=== PATIENT | female | born 1965 | race African-American/Black ===

== ENCOUNTER → 2020-01-21 12:10 | Outpatient (BNVA) | payer OTHER, SELFPAY | PROVIDERS: PCP Nurse Practitioner Family; Visit Provider Internal Medicine | DX: B20 Human immunodeficiency virus [HIV] disease (principal); Z79.899 Other long term (current) drug therapy | CPT/HCPCS: 99212 ==

== ENCOUNTER 2020-02-19 11:42 | Outpatient (REF) | payer OTHER, SELFPAY ==
[2020-02-19 12:42] LABS: Anion Gap 12 (12-20); Blood Urea Nitrogen 17 mg/dL (9-16); Calcium 8.5 mg/dL (8.4-10.2); Carbon Dioxide 24 mmol/L (22-29); Chloride 108 mmol/L (96-108); Cholesterol 184 mg/dL; Estimated Glomerular Filt Rate 44; Glucose Fasting 94 mg/dL (60-99); HDL Cholesterol 41 mg/dL; LDL Cholesterol Calculated 122 mg/dl; Potassium 4.4 mmol/l (3.3-5.1); Sodium 140 mmol/L (135-145); Triglycerides 108 mg/dL
[2020-02-19 13:02] LABS: TSH reflex Free T4 0.66 mIU/mL (0.32-4.0); Vitamin D 25-OH Total 19.8 ng/mL (>30)
[2020-02-26 08:47] LABS: FT4 by Equilib. Dialysis 1.1 ng/dL (0.9-2.2)
== END 2020-02-19 11:43 | disposition home or self-care (01) ==
LOC: HO.LAB 11:42
PROVIDERS: PCP Nurse Practitioner Family; Visit Provider Internal Medicine Endocrinology, Diabetes & Metabolism
DX: Z00.00 Encounter for general adult medical examination without abnormal findings (principal); Z78.0 Asymptomatic menopausal state; E89.0 Postprocedural hypothyroidism
CPT/HCPCS: 80048; 80061; 82306; 84439; 84443

== ENCOUNTER 2020-02-20 10:29 | Outpatient (REF) | payer OTHER, SELFPAY | END 2020-02-20 10:30 | disposition home or self-care (01) | LOC: HO.LAB 10:29 | PROVIDERS: Visit Provider Obstetrics & Gynecology | DX: R87.612 Low grade squamous intraepithelial lesion on cytologic smear of cervix (LGSIL) (principal) | CPT/HCPCS: 57454; 88305 ==

== ENCOUNTER → 2020-02-21 08:33 | Outpatient (REF) | payer OTHER, SELFPAY ==
--- NOTE | 2020-02-21 08:30 | CA_ITS ---
Transthoracic Echocardiogram Patient (Last, First, Middle): Miriam Chacon J Gender: Female Date of : 1965 Age: 54 Procedure Date: 02/21/2020 Procedure Type: Transthoracic Echocardiogram Location: OP Height: 154.94 cm Weight: 99.79 kg BSA: 1.97 m2 Heart Rate: bpm BP: 136 / 78 mmHg Refining Supervisor: DAVY Referring MD: Kenroy Freeman [facility] Lotus Notes Developer: Aubrey Ayers MD Symptoms: R01.1 CARDIAC MURMUR Study Quality: Good ECG Rhythm: Sinus Conclusions: - 1. Normal LV systolic and diastolic function 2. Mild mitral regurgitation in the early systolic period 3. Normal RV systolic pressure 4. No pericardial effusion Findings Left Ventricle Normal left ventricular size, thickness, and systolic function. The visually estimated ejection fraction is between 65-70%. There is no evidence of regional wall motion abnormalities. Diastolic function is normal for age. Right Ventricle Normal right ventricular cavity size and systolic function. Atria Both atria are normal in size. There is no evidence of interatrial shunt. Aortic Valve Normal aortic valve structure and function. There is no aortic valve stenosis. There is no aortic valve regurgitation. Mitral Valve Normal mitral valve structure and function. There is mild mitral valve regurgitation. There is no mitral valve stenosis. Pulmonic Valve The pulmonic valve is likely normal. Tricuspid Valve Normal tricuspid valve structure. There is mild tricuspid valve regurgitation. The right ventricular systolic pressure is normal. Normal right atrial pressure. There is no evidence of pulmonary hypertension. Great Vessels All visible segments of the aorta are normal in size. The pulmonary artery was not well visualized. Venous The inferior vena cava is normal in size and collapses greater than 50% with inspiration. Pericardium/Pleural There is no evidence of pericardial effusion. Prior Study Comparison Changes noted compared to prior study dated: 07/09/2018. mild early systolic mitral regurgitation noted Measurements 2D Linear Measurements IVSd: 1.06 0.6-0.9/0.6-1.0 cm LVIDd: 4.96 3.9-5.3/4.2-5.9 cm LVIDd Index: 2.52 2.4-3.2/2.2-3.1 cm/m2 LVIDs: 2.77 2.0-3.6 cm LVPWd: 1.19 0.7-1.1 cm Ao Root: 2.70 2.1-3.5 cm LA Diam: 4.00 2.7-3.8/3.0-4.0 cm LAIDs Index: 2.03 1.5-2.3 cm/m2 LV Mass: 262.89 67-162/88-224 g LV Mass Index: 133.45 43-95/49-115 g/m2 LVOT Diam: 2.00 3.0+(-)1.3 cm 2D Systolic Function EF 4C: 74.00 >55% EF 2C: 57.90 >55% EF BiP: 66.60 >55% Mitral Valve MV Pk E: 0.72 MV PK A: 0.55 MV Decel Time: 201.00 E/A: 1.30 E'Lateral: 12.70 E'Medial: 7.64 E/E' Med: 9.50 E/E' Lat: 5.70 PHT: 59.00 MVA PHT: 3.73 Decel Hamblen: 3.60 Aortic Valve AoV Pk Manjinder: 1.24 AoV Pk Grad: 6.00 LVOT LVOT Pk Manjinder: 0.91 LVOT Mn Manjinder: 0.65 LVOT VTI: 0.21 LVOT Pk Grad: 3.00 LVOT Mn Grad: 2.00 LVOT Diam: 2.00 LVOT Area: 3.14 Diastolic Function MV Pk E: 0.72 MV Pk A: 0.55 E/A: 1.30 E'Medial: 7.64 E/E' Med: 9.50 E' Laterial: 12.70 E/E' Lat: 5.70 Tricuspid Valve TR Pk Manjinder: 2.92 TR Pk Grad: 34.00 RA Press: 3.00 RVSP: 37.00 Great Vessels Aorta Ao Root-2D: 2.70 2.0-3.7 cm Ao Asc: 3.80 2.1-3.4 cm Ao Arch: 3.00 Updated in Other Vendor System with Status of Final Aubrey Ayers MD electronically signed on 02/21/2020 1:39:17 PM with status of Final
== END ==
LOC: HO.CARD 08:33
PROVIDERS: PCP Nurse Practitioner Family; Visit Provider Nurse Practitioner Family
DX: R01.1 Cardiac murmur, unspecified (principal)
CPT/HCPCS: 93306

== ENCOUNTER → 2020-02-24 10:24 | Outpatient (BNVA) | payer OTHER, SELFPAY | PROVIDERS: PCP Nurse Practitioner Family; Referring Provider Nurse Practitioner Family; Visit Provider Internal Medicine Endocrinology, Diabetes & Metabolism | DX: Z13.89 Encounter for screening for other disorder (principal) | CPT/HCPCS: 99212 ==

== ENCOUNTER → 2020-03-11 10:27 | Outpatient (BNVA) | payer OTHER, SELFPAY | PROVIDERS: Visit Provider Obstetrics & Gynecology | DX: R87.612 Low grade squamous intraepithelial lesion on cytologic smear of cervix (LGSIL) (principal) | CPT/HCPCS: Q3014 ==

== ENCOUNTER 2020-04-06 09:58 | Outpatient (REF) | payer OTHER, SELFPAY ==
[2020-04-06 11:08] LABS: Cholesterol 152 mg/dL; HDL Cholesterol 41 mg/dL; LDL Cholesterol Calculated 93 mg/dl; Triglycerides 92 mg/dL
== END 2020-04-06 09:59 | disposition home or self-care (01) ==
LOC: HO.LAB 09:58
PROVIDERS: PCP Nurse Practitioner Family; Visit Provider Internal Medicine
DX: I25.10 Atherosclerotic heart disease of native coronary artery without angina pectoris (principal)
CPT/HCPCS: 80061

== ENCOUNTER → 2020-04-08 10:41 | Outpatient (BNVA) | payer OTHER, SELFPAY | PROVIDERS: Visit Provider Internal Medicine | DX: I25.10 Atherosclerotic heart disease of native coronary artery without angina pectoris (principal); I10 Essential (primary) hypertension; E78.5 Hyperlipidemia, unspecified; E66.01 Morbid (severe) obesity due to excess calories | CPT/HCPCS: 99212 ==

== ENCOUNTER 2020-06-19 10:39 | Outpatient (REF) | payer OTHER, SELFPAY ==
[2020-06-19 11:40] LABS: MANUAL DIFF FLAG NO
[2020-06-19 11:53] LABS: Basophils Percent Auto 0.2 % (0-2); Eosinophils Percent Auto 0.2 % (0-4); Hematocrit 43.2 % (37-47); Hemoglobin 13.7 g/dl (12.0-16.0); Imm Gran Abs Auto 0.03 X10*3/uL (0.00-0.03); Imm Gran Pct Auto 0.7 % (0.0-0.4); Lymphocytes Absolute Auto 2.1 X10*3/uL (1.2-4.9); Lymphocytes Percent Auto 50.6 % (20-40); Mean Corpuscular HGB Conc 31.7 g/dl (31.0-35.0); Mean Corpuscular Hemoglobin 27.3 pg (27.0-33.0); Mean Corpuscular Volume 86.2 fL (80-98); Monocytes Absolute Auto 0.3 X10*3/uL (0.1-1.2); Monocytes Percent Auto 6.4 % (2-11); Neutrophils Absolute Auto 1.7 X10*3/uL (2.0-8.3); Neutrophils Percent Auto 41.9 % (45-73); Platelet Count 219 X10*3/uL (160-400); Red Blood Count 5.01 X10*6/uL (4.20-5.50); Red Cell Distribution Width 13.9 % (11.0-16.0); White Blood Count 4.1 X10*3/uL (4.8-10.8)
[2020-06-19 12:23] LABS: Alanine Aminotransferase 20 U/L (0-31); Albumin Level 4.1 g/dL (3.5-5.0); Alkaline Phosphatase 171 U/L (39-117); Anion Gap 16 (12-20); Aspartate Amino Transferase 21 U/L (5-31); Bilirubin Direct 0.2 mg/dL (0.0-0.5); Bilirubin Total 0.4 mg/dL (0.0-1.0); Blood Urea Nitrogen 17 mg/dL (9-16); Calcium 8.6 mg/dL (8.4-10.2); Carbon Dioxide 24 mmol/L (22-29); Chloride 106 mmol/L (96-108); Estimated Glomerular Filt Rate 44; Glucose Random 91 mg/dL (60-115); Potassium 4.9 mmol/L (3.3-5.1); Sodium 141 mmol/L (135-145); Total Protein 7.7 g/dL (6.5-8.0)
[2020-06-22 04:27] LABS: ~HepC Num1 0.07 S/CO (0.00-0.79); ~Hepatitis C Antibody Nonreactive (Nonreactive)
[2020-06-22 16:12] LABS: Absolute CD3 Count 1772 cells/uL (840-3060); Absolute CD4 Count 1015 cells/uL (490-1740); Absolute CD8 Count 780 cells/uL (180-1170); Absolute Lymphocytes 2245 cells/uL (850-3900); Percent CD3 Cells 79 % (57-85); Percent CD4 Cells 45 % (30-61); Percent CD8 Cells 35 % (12-42)
== END 2020-06-19 10:40 | disposition home or self-care (01) ==
LOC: HO.LAB 10:39
PROVIDERS: PCP Nurse Practitioner Family; Visit Provider Internal Medicine
DX: Z21 Asymptomatic human immunodeficiency virus [HIV] infection status (principal)
CPT/HCPCS: 36415; 80048; 80076; 85025; 86359; 86360; 86701; 86702; 86803; 87389

== ENCOUNTER 2020-06-23 10:38 | Outpatient (REF) | payer OTHER, SELFPAY ==
[2020-06-24 12:11] LABS: HIV RNA PCR Qn Copies <20 NOT DETECTED copies/mL (NOT DETECTED); HIV RNA PCR Qn Log Copies <1.30 NOT DETECTED (NOT DETECTED)
== END 2020-06-23 10:39 | disposition home or self-care (01) ==
LOC: HO.LAB 10:38
PROVIDERS: PCP Nurse Practitioner Family; Visit Provider Internal Medicine
DX: B20 Human immunodeficiency virus [HIV] disease (principal); Z79.899 Other long term (current) drug therapy
CPT/HCPCS: 36415; 87536; 99212

== ENCOUNTER 2020-07-14 12:11 | Outpatient (REF) | payer OTHER, SELFPAY | END 2020-07-14 12:12 | disposition home or self-care (01) | LOC: HO.LAB 12:11 | PROVIDERS: PCP Nurse Practitioner Family; Visit Provider Internal Medicine Endocrinology, Diabetes & Metabolism | DX: Z13.89 Encounter for screening for other disorder (principal) ==

== ENCOUNTER 2020-07-16 08:17 | Outpatient (REF) | payer OTHER, SELFPAY ==
[2020-07-16 10:01] LABS: Anion Gap 13 (12-20); Blood Urea Nitrogen 25 mg/dL (9-16); Calcium 8.7 mg/dL (8.4-10.2); Carbon Dioxide 26 mmol/L (22-29); Chloride 108 mmol/L (96-108); Cholesterol 228 mg/dL; Estimated Glomerular Filt Rate 39; Free T4 (Free Thyroxine) 1.03 ng/dL (0.71-1.85); Glucose Fasting 98 mg/dL (60-99); HDL Cholesterol 45 mg/dL; LDL Cholesterol Calculated 146 mg/dl; Sodium 143 mmol/L (135-145); Thyroid Stimulating Hormone 0.64 uIU/mL (0.32-4.0); Triglycerides 186 mg/dL
[2020-07-17 07:02] LABS: Follicle Stimulating Hormone 90.6 mIU/mL; Lutenizing Hormone 37.5 mIU/mL; Prolactin 8.3 ng/mL
[2020-07-17 16:46] LABS: Adrenocorticotropic Hormone 85 pg/mL (6-50)
[2020-07-20 14:46] LABS: IGF-1 (Somatomedin C) 99 ng/mL (50-317); IGF-1 Z Score (Female) -0.7 SD (-2.0 - +2.0)
[2020-07-20 18:02] LABS: Estradiol Ultra Sensitive 17 pg/mL
== END 2020-07-16 08:18 | disposition home or self-care (01) ==
LOC: HO.LAB 08:17
PROVIDERS: PCP Nurse Practitioner Family; Visit Provider Internal Medicine Endocrinology, Diabetes & Metabolism
DX: D35.2 Benign neoplasm of pituitary gland (principal); E78.5 Hyperlipidemia, unspecified; E05.00 Thyrotoxicosis with diffuse goiter without thyrotoxic crisis or storm; E55.9 Vitamin D deficiency, unspecified
CPT/HCPCS: 36415; 80048; 80061; 82024; 82533; 82670; 83001; 83002; 84146; 84305; 84439; 84443

== ENCOUNTER → 2020-07-22 11:09 | Outpatient (BNVA) | payer OTHER, SELFPAY | PROVIDERS: PCP Nurse Practitioner Family; Referring Provider Nurse Practitioner Family; Visit Provider Internal Medicine Endocrinology, Diabetes & Metabolism | DX: E89.0 Postprocedural hypothyroidism (principal); E05.00 Thyrotoxicosis with diffuse goiter without thyrotoxic crisis or storm; E55.9 Vitamin D deficiency, unspecified; D35.2 Benign neoplasm of pituitary gland | CPT/HCPCS: 99212 ==

== ENCOUNTER 2020-08-12 11:18 | Outpatient (REF) | payer OTHER, SELFPAY ==
--- NOTE | ~2020-08-12 | MR_ITS ---
EXAMINATION: MR BRAIN WITHOUT AND WITH CONTRAST CLINICAL INFORMATION: Benign neoplasm of the pituitary gland. COMPARISON: Brain MRI from 10/24/2018. TECHNIQUE: MRI of the brain was obtained using pituitary protocol without and following the administration of 5 mL of Gadavist intravenous contrast. FINDINGS: No focal restricted diffusion is demonstrated to suggest acute or subacute cerebral ischemia. No evidence of acute or chronic hemorrhagic products on heme-sensitive imaging. Few scattered periventricular and deep white matter T2 FLAIR hyperintensities. No new parenchymal signal abnormalities. The ventricles are normal in morphology and size. No abnormal mass effect. No midline shift. Redemonstrated nonenhancing T2 hyperintense cystic lesion centered in the anterior left aspect of the anterior pituitary lobe, measuring 0.9 x 0.8 x 0.8 cm (previously 0.9 x 0.7 x 0.7 cm). Similar to prior exam, there is a punctate focus of inherent T1 hyperintensity within the medial aspect of this lesion. The pituitary gland partially bulges into the suprasellar cistern coming in close proximity to the right-sided undersurface of the optic chiasm without demonstrated deformation, unchanged. No signal abnormalities within the optic chiasm. The pituitary gland is mildly deviated to the right, unchanged. No new hyperenhancing or hypoenhancing lesions demonstrated on post contrast imaging. No abnormalities of the posterior fossa with normal appearance of the brainstem and cerebellum. Normal arterial and venous vascular flow voids are present. No abnormal contrast enhancement. Normal, homogeneous marrow signal. Mild mucosal thickening of the paranasal sinuses. No signal abnormalities within the mastoids. MR/MR head/brain wo/w con IMPRESSION: 1. Redemonstrated subcentimeter cystic lesion within the left aspect of the anterior pituitary lobe. This lesion appears unchanged to minimally increased in size compared to exams from 2019 and 2017. 2. No acute intracranial abnormalities. Mild chronic white matter change.
== END 2020-08-12 11:19 | disposition home or self-care (01) ==
LOC: HO.MRI 11:18
PROVIDERS: Visit Provider Internal Medicine Endocrinology, Diabetes & Metabolism
DX: D35.2 Benign neoplasm of pituitary gland (principal)
CPT/HCPCS: 70553; A9585

== ENCOUNTER 2020-09-30 06:20 | Outpatient (REF) | payer OTHER, SELFPAY | END 2020-09-30 06:21 | disposition home or self-care (01) | LOC: HO.LAB 06:20 | PROVIDERS: PCP Nurse Practitioner Family; Visit Provider Internal Medicine Endocrinology, Diabetes & Metabolism | DX: Z13.89 Encounter for screening for other disorder (principal) ==

== ENCOUNTER → 2020-10-01 12:55 | Outpatient (BNVA) | payer OTHER, SELFPAY | PROVIDERS: PCP Nurse Practitioner Family; Referring Provider Nurse Practitioner Family; Visit Provider Internal Medicine | DX: I25.10 Atherosclerotic heart disease of native coronary artery without angina pectoris (principal); I10 Essential (primary) hypertension; E78.5 Hyperlipidemia, unspecified; E66.01 Morbid (severe) obesity due to excess calories | CPT/HCPCS: 93005; 99212 ==

== ENCOUNTER 2020-12-02 10:30 | Outpatient (REF) | payer OTHER, SELFPAY ==
[2020-12-05 05:22] LABS: HPV 16 RNA NOT DETECTED (NOT DETECTED); HPV mRNA E6/E7 rflx Detected (Not Detected)
== END 2020-12-02 10:31 | disposition home or self-care (01) ==
LOC: HO.LAB 10:30
PROVIDERS: PCP Nurse Practitioner Family; Referring Provider Nurse Practitioner Family; Visit Provider Advanced Practice Midwife
DX: Z01.419 Encounter for gynecological examination (general) (routine) without abnormal findings (principal); Z11.51 Encounter for screening for human papillomavirus (HPV); Z87.42 Personal history of other diseases of the female genital tract
CPT/HCPCS: 87624; 87625; 88142

== ENCOUNTER 2020-12-16 16:02 | Outpatient (REF) | payer OTHER, SELFPAY ==
[2020-12-16 17:03] LABS: Hematocrit 42.2 % (37-47); Hemoglobin 13.3 g/dl (12.0-16.0); Mean Corpuscular HGB Conc 31.5 g/dl (31.0-35.0); Mean Corpuscular Volume 85.8 fL (80-98); Platelet Count 229 X10*3/uL (160-400); Red Blood Count 4.92 X10*6/uL (4.20-5.50); Red Cell Distribution Width 14.9 % (11.0-16.0)
[2020-12-16 17:23] LABS: Blood Urea Nitrogen 14 mg/dL (9-16); Estimated Glomerular Filt Rate 47
[2020-12-16 17:44] LABS: Alanine Aminotransferase 18 U/L (0-31); Albumin Level 4.3 g/dL (3.5-5.0); Alkaline Phosphatase 135 U/L (39-117); Anion Gap 12 (12-20); Aspartate Amino Transferase 17 U/L (5-31); Bilirubin Direct 0.2 mg/dL (0.0-0.5); Bilirubin Total 0.6 mg/dL (0.0-1.0); Blood Urea Nitrogen 14 mg/dL (9-16); Calcium 9.7 mg/dL (8.4-10.2); Carbon Dioxide 25 mmol/L (22-29); Chloride 108 mmol/L (96-108); Estimated Glomerular Filt Rate 45; Glucose Random 94 mg/dL (60-115); Potassium 4.1 mmol/L (3.3-5.1); Sodium 141 mmol/L (135-145); Syphilis Screen Nonreactive (Nonreactive); Total Protein 7.5 g/dL (6.5-8.0)
[2020-12-16 17:48] LABS: Free T4 (Free Thyroxine) 1.24 ng/dL (0.71-1.85); Thyroid Stimulating Hormone 0.07 uIU/mL (0.32-4.0)
[2020-12-17 14:17] LABS: Absolute CD3 Count 1931 cells/uL (840-3060); Absolute CD4 Count 1035 cells/uL (490-1740); Absolute CD8 Count 920 cells/uL (180-1170); Absolute Lymphocytes 2482 cells/uL (850-3900); CD4 CD8 Ratio 1.13 (0.86-5.00); Percent CD3 Cells 78 % (57-85); Percent CD4 Cells 42 % (30-61); Percent CD8 Cells 37 % (12-42)
[2020-12-18 09:03] LABS: ~Hepatitis C Antibody Nonreactive (Nonreactive)
[2020-12-18 12:51] LABS: HIV RNA PCR Qn Copies 24 copies/mL (NOT DETECTED); HIV RNA PCR Qn Log Copies 1.38 (NOT DETECTED)
== END 2020-12-16 16:03 | disposition home or self-care (01) ==
LOC: HO.LAB 16:02
PROVIDERS: Internal Medicine Endocrinology, Diabetes & Metabolism; PCP Nurse Practitioner Family; Visit Provider Internal Medicine
DX: Z11.3 Encounter for screening for infections with a predominantly sexual mode of transmission (principal); Z11.59 Encounter for screening for other viral diseases; D35.2 Benign neoplasm of pituitary gland; B20 Human immunodeficiency virus [HIV] disease; E89.0 Postprocedural hypothyroidism
CPT/HCPCS: 36415; 80048; 80076; 82533; 82565; 84439; 84443; 84520; 85027; 86359; 86360; 86780; 86803; 87536

== ENCOUNTER → 2020-12-22 14:02 | Outpatient (BNVA) | payer OTHER, SELFPAY | PROVIDERS: PCP Nurse Practitioner Family; Visit Provider Internal Medicine | DX: B20 Human immunodeficiency virus [HIV] disease (principal) | CPT/HCPCS: 99212 ==

== ENCOUNTER 2020-12-29 09:14 | Outpatient (REF) | payer OTHER, SELFPAY | END 2020-12-29 09:15 | disposition home or self-care (01) | LOC: HO.LAB 09:14 | PROVIDERS: PCP Nurse Practitioner Family; Visit Provider Obstetrics & Gynecology | DX: R87.612 Low grade squamous intraepithelial lesion on cytologic smear of cervix (LGSIL) (principal) | CPT/HCPCS: 57454; 88305 ==

== ENCOUNTER → 2021-01-18 13:12 | Outpatient (BNVA) | payer OTHER, SELFPAY | PROVIDERS: PCP Nurse Practitioner Family; Visit Provider Obstetrics & Gynecology | DX: N87.0 Mild cervical dysplasia (principal) | CPT/HCPCS: 99212 ==

== ENCOUNTER 2021-01-22 11:49 | Outpatient (REF) | payer OTHER, SELFPAY | END 2021-01-22 11:50 | disposition home or self-care (01) | LOC: HO.LNP 11:49 | PROVIDERS: Visit Provider Physician Assistant Medical | DX: J06.9 Acute upper respiratory infection, unspecified (principal); Z20.822 Contact with and (suspected) exposure to COVID-19 | CPT/HCPCS: U0003; U0005 ==

== ENCOUNTER 2021-01-26 14:14 | Outpatient (REF) | payer OTHER, SELFPAY ==
--- NOTE | ~2021-01-26 | MM_ITS ---
EXAMINATION: MM SCREENING DIGITAL BREAST TOMOSYNTHESIS, BILATERAL CLINICAL INFORMATION: Screening. Asymptomatic. The lifetime risk of breast cancer based on the Tyrer-Cuzick Model is 8.8%. COMPARISON: Mammography: December 12, 2019 and studies dating back to July 28, 2015 TECHNIQUE: Digital breast tomosynthesis is performed in both the craniocaudal and mediolateral oblique views along with computer-aided detection (CAD). Synthesized 2D images are generated from the tomosynthesis. FINDINGS: There are scattered areas of fibroglandular density (ACR BI-RADS breast composition Category b). There are no significant masses, abnormal calcifications, or other abnormalities. MM/MM tomosynthesis screening BI IMPRESSION: There are no significant changes from prior study. ASSESSMENT: BI-RADS 1: Negative RECOMMENDATION: Routine annual mammography screening. This patient's information was entered into a reminder system with a target due date for their next mammogram.
== END 2021-01-26 14:15 | disposition home or self-care (01) ==
LOC: HO.MAMMO 14:14
PROVIDERS: PCP Nurse Practitioner Family; Visit Provider Advanced Practice Midwife
DX: Z12.31 Encounter for screening mammogram for malignant neoplasm of breast (principal)
CPT/HCPCS: 77063; 77067

== ENCOUNTER 2021-01-29 08:00 | Day surgery (SDC) | payer OTHER, SELFPAY ==
[2021-01-22 10:34] VITALS: BMI 43.4
--- NOTE | 2021-01-27 14:02 | HO.ANESPROP2 ---
Documented by User: Regina Shields NP 01/27/21 14:04 HPI - Anesthesia Eval Consult details Narrative: 55yo F for Cone LEEP with post Cone ECC ? daily prednisone for RA PMFSH Active Problems Active Problems: All Active Problems (Updated 01/22/21 @ 10:31 by Patti Michele, RN) Physical exam (Acute) Postmenopausal (Acute) Murmur, cardiac (Acute) Mitral regurgitation (Acute) Dyslipidemia (Acute) Anxiety and depression (Acute) LGSIL (low grade squamous intraepithelial dysplasia) (Acute) Dysplasia of cervix, low grade (NIDHI 1) (Acute) Viral upper respiratory illness (Acute) Morbid obesity (Acute) Other and unspecified hyperlipidemia (Acute) Essential hypertension (Acute) Atherosclerotic cardiovascular disease (Acute) Pituitary microadenoma (Acute) Vitamin D deficiency (Acute) Graves disease (Acute) Post-surgical hypothyroidism (Acute) HIV (human immunodeficiency virus infection) (Acute) Past Medical History Medical History (Updated 01/22/21 @ 10:31 by Patti Michele RN) Anxiety Atherosclerotic cardiovascular disease Cervical radiculitis Chronic kidney disease, stage 2 (mild) Dyslipidemia Essential hypertension GERD (gastroesophageal reflux disease) Graves disease Darian's disease History of paresthesia HIV (human immunodeficiency virus infection) HTN (hypertension) Iron (Fe) deficiency anemia Leukopenia LGSIL (low grade squamous intraepithelial dysplasia) Lumbar radiculopathy Morbid obesity Obstructive sleep apnea Osteoarthritis Other and unspecified hyperlipidemia Pernicious anemia Pituitary microadenoma Pituitary microadenoma Positive KALYANI (antinuclear antibody) Post-surgical hypothyroidism Raynaud's phenomenon SI (sacroiliac) pain Thyroid nodule Vitamin B12 deficiency Vitamin D deficiency Family History Family History Father No problems noted. Mother Stroke Sister Diabetes mellitus Maternal Grandmother Unknown family medical history Brother Cancer Sister No problems noted. Brother No problems noted. Daughter Healthy female Surgical History Surgical History History of temporal artery biopsy History of thyroidectomy History of tonsillectomy History of tubal ligation Hx of colonoscopy Hx of esophagogastroduodenoscopy Social History Social History Housing: Apartment Alcohol intake: never Patient Tobacco Use Status: Never used Tobacco e-Cigarette/Vaping Use: Never Used Second Hand Smoke Exposure: No Are you DNR?: No Advance Directives: No Advance Directives Information Provided: Yes (mailed) Advance Directives on File: No Current occupational status: disabled Meds Allergies Allergy/AdvReac Type Severity Reaction Status Date / Time amlodipine [AMLODIPINE] Allergy Unknown RASH Verified 01/21/21 15:03 cephalexin [From KEFLEX] Allergy Unknown RASH Verified 01/21/21 15:03 levofloxacin [From LEVAQUIN] Allergy Unknown RASH Verified 01/21/21 15:03 Pt states no food allergies Allergy Unknown Unknown Uncoded 01/21/21 15:03 Home Medications Medication Instructions Recorded Confirmed Last Taken Type paroxetine HCl 40 mg tablet 40 mg PO BEDTIME 07/22/20 01/22/21 Unknown History paroxetine HCl 10 mg tablet 10 mg PO BEDTIME 10/01/20 01/22/21 Unknown History Exam Exam Date and Time: January 27, 2021 1402 Height,Weight and Vital Signs: Height 5 ft 1 in Weight 104.326 kg Narrative Narrative: EKG 09/2020 NSR Coronary CTA, she had mild mid to distal left main plaque and moderate plaque in the proximal LAD; mild plaque in circumflex.? Clinically, no angina.? Continue medical therapy for stable coronary disease.? Continue aspirin. ECHO 02/2020 Conclusions: -? 1. Normal LV systolic and diastolic function? 2. Mild mitral regurgitation in the early systolic period? 3. Normal RV systolic pressure ? 4. No pericardial effusion ? ? Assessment and Plan Assessment Anesthesia Assessment: Chart Reviewed Documented by User: Sabi Rascon MD 01/29/21 09:14 [facility] Past Medical History Medical History (Updated 01/22/21 @ 10:31 by Patti Michele RN) Anxiety Atherosclerotic cardiovascular disease Cervical radiculitis Chronic kidney disease, stage 2 (mild) Dyslipidemia Essential hypertension GERD (gastroesophageal reflux disease) Graves disease Darian's disease History of paresthesia HIV (human immunodeficiency virus infection) HTN (hypertension) Iron (Fe) deficiency anemia Leukopenia LGSIL (low grade squamous intraepithelial dysplasia) Lumbar radiculopathy Morbid obesity Obstructive sleep apnea Osteoarthritis Other and unspecified hyperlipidemia Pernicious anemia Pituitary microadenoma Pituitary microadenoma Positive KALYANI (antinuclear antibody) Post-surgical hypothyroidism Raynaud's phenomenon SI (sacroiliac) pain Thyroid nodule Vitamin B12 deficiency Vitamin D deficiency Functional capacity: independent ambulation Patient : No Family History Family History Father No problems noted. Mother Stroke Sister Diabetes mellitus Maternal Grandmother Unknown family medical history Brother Cancer Sister No problems noted. Brother No problems noted. Daughter Healthy female Family history of problems with anesthesia: No Surgical History Surgical History History of temporal artery biopsy History of thyroidectomy History of tonsillectomy History of tubal ligation Hx of colonoscopy Hx of esophagogastroduodenoscopy History of Problems with Anesthesia: No Social History Social History Housing: Apartment Alcohol intake: never Patient Tobacco Use Status: Never used Tobacco e-Cigarette/Vaping Use: Never Used Second Hand Smoke Exposure: No Are you DNR?: No Advance Directives: No Advance Directives Information Provided: Yes (mailed) Advance Directives on File: No Current occupational status: disabled Meds Allergies Allergy/AdvReac Type Severity Reaction Status Date / Time amlodipine [AMLODIPINE] Allergy Unknown RASH Verified 01/21/21 15:03 cephalexin [From KEFLEX] Allergy Unknown RASH Verified 01/21/21 15:03 levofloxacin [From LEVAQUIN] Allergy Unknown RASH Verified 01/21/21 15:03 Pt states no food allergies Allergy Unknown Unknown Uncoded 01/21/21 15:03 Home Medications Medication Instructions Recorded Confirmed Last Taken Type paroxetine HCl 40 mg tablet 40 mg PO BEDTIME 07/22/20 01/22/21 Unknown History paroxetine HCl 10 mg tablet 10 mg PO BEDTIME 10/01/20 01/22/21 Unknown History Exam Airway Mallampati Class: III TM Dist: >3cm Neck ROM: Full Heart: RRR Lungs: CTA Assessment and Plan Final Anesthetic Review Family History of Problems with Anesthesia: No History of Problems with Anesthesia: No
[2021-01-29 08:34] VITALS: BP 143/98; PULSE 87; RESP 18; TEMP 36.2; O2SAT 99
--- NOTE | 2021-01-29 08:36 | MHC.SHP ---
Pre-Procedural Eval Section A Date of Service: 01/29/21 The patient is an INPATIENT: No Changes since office visit: No Cold of Flu in the past 2 weeks, No New Medical Problems, No Changes in Medication and No Patient answered all questions The History & Physical has been completed within 30 days and I have reviewed it.: Yes Section B Chief Complaint: mild cervical dysplasia Allergies: Allergies Allergy/AdvReac Type Severity Reaction Status Date / Time amlodipine [AMLODIPINE] Allergy Unknown RASH Verified 01/21/21 15:03 cephalexin [From KEFLEX] Allergy Unknown RASH Verified 01/21/21 15:03 levofloxacin [From LEVAQUIN] Allergy Unknown RASH Verified 01/21/21 15:03 Pt states no food allergies Allergy Unknown Unknown Uncoded 01/21/21 15:03 Plan Diagnosis/Plan: Unchanged I have reviewed the history and physical and performed a pertinent physical examination on my patient. No changes have occurred unless specified.
[2021-01-29] MEDS: Lactated Ringers 1,000 ML 100 ML IVCONT (09:03)
--- NOTE | 2021-01-29 10:01 | P.BOP_ITS ---
Brief Operative Note Date of Service: 01/29/21 Pre-op diagnosis: Persistent NIDHI 1 with positive ECC Post-op diagnosis: same Procedure: LEEP CONE with post CONE ECC Surgeon: Bob King MD Anesthesia: MAC, local and other (Paracervical block) Was an Deputy Director Of Finance used for this Procedure?: No Estimated blood loss (mL): 0 Pathology: other (Cervical cone, Endocx, Post cone ECC) Condition: stable Disposition: other (Home)
--- NOTE | 2021-01-29 10:01 | W.PM.OPN ---
Operative Note Operative Note Date of Service: 01/29/21 Narrative: Preop diagnosis: Persistent NIDHI 1 with + ECC Operation: LEEP Cone with post cone ECC Post op diagnosis: same Anesthesia: paracervical block, mac Complications: none Pathology: Cervical cone with endocervix & post cone RCC QBL: minimal Procedure: The patient was put in the dorsal lithotomy position, was prepped and draped in the usual sterile fashion. A sterile speculum was inserted inside the patient vagina. Using Lugol solution the cervix with Dyed with Lugol solution to identifiy the abnormal demarcating line. 10 cc of Marcaine 0.5% with epinephrine were given at 2,4 , 8, and 10 o'clock. Using a medium-size loop wire, the cervical cone was excised followed by the endocervix, post cone ECC was done afterwards. Hemostasis was assured using cautery and Monsel solution. All instruments were taken out of the patient's vaginal cavity. the patient tolerated the procedure well and was discharged home with the following instructions: call if temperature is above 100.4, vaginal bleeding, abdominal pain or nausea or vomiting. Follow-up in the office in 2 weeks for postop visit
[2021-01-29 10:06] VITALS: BP 113/76; PULSE 78; RESP 12; TEMP 36.6; O2SAT 100
[2021-01-29 10:12] VITALS: BP 126/86; PULSE 72; RESP 16; O2SAT 100
[2021-01-29 10:16] VITALS: BP 124/87; PULSE 74; RESP 18; O2SAT 98
[2021-01-29 10:21] VITALS: BP 127/84; PULSE 72; RESP 17; O2SAT 98
[2021-01-29 10:48] VITALS: BP 126/87; PULSE 71; RESP 17; TEMP 36.5; O2SAT 98
[2021-01-29] MEDS: Acetaminophen 325 MG TABLET 650 MG PO (10:54)
== END 2021-01-29 11:22 | disposition home or self-care (01) ==
PROVIDERS: PCP Nurse Practitioner Family; Visit Provider Obstetrics & Gynecology
PROC: 0UBC7ZZ Excision of Cervix, Via Natural or Artificial Opening (ICD-10-PCS; CPT 57522; principal; 2021-01-29 09:40)
DX: N87.0 Mild cervical dysplasia (principal); G47.33 Obstructive sleep apnea (adult) (pediatric); I12.9 Hypertensive chronic kidney disease with stage 1 through stage 4 chronic kidney disease, or unspecified chronic kidney disease; N18.2 Chronic kidney disease, stage 2 (mild); E05.00 Thyrotoxicosis with diffuse goiter without thyrotoxic crisis or storm; E06.3 Autoimmune thyroiditis; B20 Human immunodeficiency virus [HIV] disease; E66.01 Morbid (severe) obesity due to excess calories; Z68.41 Body mass index [BMI] 40.0-44.9, adult; Z98.51 Tubal ligation status; Z88.1 Allergy status to other antibiotic agents; Z88.8 Allergy status to other drugs, medicaments and biological substances
CPT/HCPCS: 57522; 88305; 88307; 88342; 88360; J1100; J2250; J2405; J3010

== ENCOUNTER → 2021-02-24 08:20 | Outpatient (BNVA) | payer OTHER, SELFPAY | PROVIDERS: PCP Nurse Practitioner Family; Visit Provider Obstetrics & Gynecology | DX: Z48.89 Encounter for other specified surgical aftercare (principal); D06.9 Carcinoma in situ of cervix, unspecified | CPT/HCPCS: 99212 ==

== ENCOUNTER 2021-02-26 08:55 | Day surgery (SDC) | payer OTHER, SELFPAY ==
[2021-02-26] VITALS (7 sets, daily range): BP systolic 115–131; BP diastolic 70–82; PULSE 62–100; RESP 16–18; TEMP 36.1–36.5; O2SAT 95–100; BMI 43.4
--- NOTE | 2021-02-26 09:23 | P.CONAN_ITS ---
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 (Acute) Physical exam (Acute) Postmenopausal (Acute) Murmur, cardiac (Acute) Mitral regurgitation (Acute) Dyslipidemia (Acute) Anxiety and depression (Acute) LGSIL (low grade squamous intraepithelial dysplasia) (Acute) Dysplasia of cervix, low grade (NIDHI 1) (Acute) Viral upper respiratory illness (Acute) Morbid obesity (Acute) Other and unspecified hyperlipidemia (Acute) Essential hypertension (Acute) Atherosclerotic cardiovascular disease (Acute) Pituitary microadenoma (Acute) Vitamin D deficiency (Acute) Graves disease (Acute) Post-surgical hypothyroidism (Acute) HIV (human immunodeficiency virus infection) (Acute) Past Medical History Medical History Anxiety Atherosclerotic cardiovascular disease Cervical radiculitis Chronic kidney disease, stage 2 (mild) Dyslipidemia Essential hypertension GERD (gastroesophageal reflux disease) Graves disease Darian's disease History of paresthesia HIV (human immunodeficiency virus infection) HTN (hypertension) Iron (Fe) deficiency anemia Leukopenia LGSIL (low grade squamous intraepithelial dysplasia) Lumbar radiculopathy Morbid obesity Obstructive sleep apnea Osteoarthritis Other and unspecified hyperlipidemia Pernicious anemia Pituitary microadenoma Pituitary microadenoma Positive KALYANI (antinuclear antibody) Post-surgical hypothyroidism Raynaud's phenomenon SI (sacroiliac) pain Thyroid nodule Vitamin B12 deficiency Vitamin D deficiency Family History Family History Father No problems noted. Mother Stroke Sister Diabetes mellitus Maternal Grandmother Unknown family medical history Brother Cancer Sister No problems noted. Brother No problems noted. Daughter Healthy female Family history of problems with anesthesia: No Surgical History Surgical History History of temporal artery biopsy History of thyroidectomy History of tonsillectomy History of tubal ligation Hx of colonoscopy Hx of esophagogastroduodenoscopy History of Problems with Anesthesia: No Social History Social History Housing: Apartment Alcohol intake: never Patient Tobacco Use Status: Never used Tobacco e-Cigarette/Vaping Use: Never Used Second Hand Smoke Exposure: No Use of substances other than those prescribed or required for medical reasons: No Are you DNR?: No Advance Directives: No Advance Directives Information Provided: Yes Current occupational status: disabled Meds Allergies Allergy/AdvReac Type Severity Reaction Status Date / Time amlodipine [AMLODIPINE] Allergy Unknown RASH Verified 01/21/21 15:03 cephalexin [From KEFLEX] Allergy Unknown RASH Verified 01/21/21 15:03 levofloxacin [From LEVAQUIN] Allergy Unknown RASH Verified 01/21/21 15:03 Pt states no food allergies Allergy Unknown Unknown Uncoded 01/21/21 15:03 Home Medications Medication Instructions Recorded Confirmed Last Taken Type paroxetine HCl 40 mg tablet 40 mg PO BEDTIME 07/22/20 01/22/21 Unknown History paroxetine HCl 10 mg tablet 10 mg PO BEDTIME 10/01/20 01/22/21 Unknown History Exam Exam Date and Time: February 26, [id number] Height,Weight and Vital Signs: Height 5 ft 1 in Weight 104.326 kg Last Vital Signs Temp 97.0 F 02/26/21 09:16 Pulse 76 02/26/21 09:16 Resp 18 02/26/21 09:16 BP 131/71 02/26/21 09:16 Pulse Ox 97 02/26/21 09:16 Airway Mallampati Class: II TM Dist: >3cm Neck ROM: Full Assessment and Plan Final Anesthetic Review Family History of Problems with Anesthesia: No History of Problems with Anesthesia: No
--- NOTE | 2021-02-26 09:25 | MHC.SHP ---
Pre-Procedural Eval Section A Date of Service: 02/26/21 The patient is an INPATIENT: No Changes since office visit: No Cold of Flu in the past 2 weeks, No New Medical Problems, No Changes in Medication and No Patient answered all questions The History & Physical has been completed within 30 days and I have reviewed it.: Yes Section B Chief Complaint: CA in situ of cervix Allergies: Allergies Allergy/AdvReac Type Severity Reaction Status Date / Time amlodipine [AMLODIPINE] Allergy Unknown RASH Verified 01/21/21 15:03 cephalexin [From KEFLEX] Allergy Unknown RASH Verified 01/21/21 15:03 levofloxacin [From LEVAQUIN] Allergy Unknown RASH Verified 01/21/21 15:03 Pt states no food allergies Allergy Unknown Unknown Uncoded 01/21/21 15:03 Plan Diagnosis/Plan: Unchanged I have reviewed the history and physical and performed a pertinent physical examination on my patient. No changes have occurred unless specified.
[2021-02-26] MEDS: Lactated Ringers 1,000 ML 100 ML IVCONT (10:00)
--- NOTE | 2021-02-26 10:49 | P.BOP_ITS ---
Brief Operative Note Date of Service: 02/26/21 Pre-op diagnosis: NIDHI 2-3 with positive margins on previous LEEP cone Post-op diagnosis: same Procedure: LEEP CONE with post CONE ECC Surgeon: Bob King MD Anesthesia: GLMA, local and other (Paracervical block) Was an Patient Registration Clerk used for this Procedure?: No Estimated blood loss (mL): 0 Pathology: other (Cervical cone , Endocx, Post cone ECC) Condition: stable Disposition: other (Home)
--- NOTE | 2021-02-26 10:51 | P.OP_ITS ---
Operative Note Operative Note Date of Service: 02/26/21 Narrative: Preop diagnosis: NIDHI 2-3 with positive margins on previous LEEP cone Operation: LEEP Cone with post cone ECC Post op diagnosis: same Anesthesia: paracervical block, GLMA Complications: none Pathology: Cervical cone with endocervix & post cone ECC QBL: minimal Procedure: The patient was put in the dorsal lithotomy position, was prepped and draped in the usual sterile fashion. A sterile speculum was inserted inside the patient vagina. Colposcopy done with ascetic acid to identified abnormal aceto- white lesions in the endocervix. Using Lugol solution the cervix with Dyed with Lugol solution to identifiy the abnormal demarcating line. 10 cc of Marcaine 0.5% with epinephrine were given at 2,4 , 8, and 10 o'clock. Using a medium- size loop wire, the cervical cone was excised followed by the endocervix, then post cone ECC was done afterwards. Hemostasis was assured using cautery and Monsel solution. All instruments were taken out of the patient's vaginal cavity. the patient tolerated the procedure well and was discharged home with the following instructions: call if temperature is above 100.4, vaginal bleeding, abdominal pain or nausea or vomiting. Follow-up in the office in 2 weeks for postop visit
== END 2021-02-26 12:20 | disposition home or self-care (01) ==
PROVIDERS: PCP Nurse Practitioner Family; Visit Provider Obstetrics & Gynecology
PROC: 0UBC7ZZ Excision of Cervix, Via Natural or Artificial Opening (ICD-10-PCS; CPT 57522; principal; 2021-02-26 10:50)
DX: D06.9 Carcinoma in situ of cervix, unspecified (principal); I12.9 Hypertensive chronic kidney disease with stage 1 through stage 4 chronic kidney disease, or unspecified chronic kidney disease; N18.2 Chronic kidney disease, stage 2 (mild); B20 Human immunodeficiency virus [HIV] disease; G47.33 Obstructive sleep apnea (adult) (pediatric); E05.00 Thyrotoxicosis with diffuse goiter without thyrotoxic crisis or storm; E06.3 Autoimmune thyroiditis; E53.8 Deficiency of other specified B group vitamins; E55.9 Vitamin D deficiency, unspecified; Z88.8 Allergy status to other drugs, medicaments and biological substances; Z88.1 Allergy status to other antibiotic agents; Z79.899 Other long term (current) drug therapy
CPT/HCPCS: 57460; 88305; 88307; 88342; J2250; J3010

== ENCOUNTER 2021-02-27 11:59 | Emergency (ER) | payer OTHER, SELFPAY ==
--- NOTE | ~2021-02-27 | US_ITS ---
EXAMINATION: US VENOUS WITH DOPPLER UPPER EXTREMITY, RIGHT CLINICAL INFORMATION: Right upper extremity pain status post IV puncture. COMPARISON: None TECHNIQUE: Ultrasound of the upper extremity is performed using compression sonography and color and pulse Doppler flow with assessment of augmentation of flow. There is also imaging and Doppler assessment of the jugular and subclavian veins. Spectral analysis with color-flow imaging is performed. FINDINGS: The right internal jugular vein and subclavian veins demonstrate normal color and spectral flow consistent with patency. The axillary vein demonstrates normal color flow and compressibility consistent with patency. The right brachial, basilic and cephalic veins demonstrate normal compressibility and color flow consistent with patency. The right radial and ulnar veins are patent. US/US venous duplex UE RT IMPRESSION: No DVT demonstrated in the right upper extremity If the patient's symptoms progress, a followup ultrasound in 5 -7 days might be of value to exclude proximal propagation from a nonvisualized distal arm vein.
--- NOTE | ~2021-02-27 | CT_ITS ---
EXAMINATION: CT ABDOMEN AND PELVIS WITHOUT CONTRAST CLINICAL INFORMATION: Abdominal pain, nausea and vomiting COMPARISON: Previous abdominal and pelvic CT September 2016 and chest x-ray October 2018 TECHNIQUE: Multidetector volumetric imaging was performed from the superior aspect of the liver through the pubic symphysis. Sagittal and coronal reformatted images were obtained on the technologist's workstation. This CT examination was performed using dose optimization techniques as appropriate, variously including the following: *Automated exposure control *Adjustment of mA and/or kV according to patient size (this includes techniques or standardized protocols for targeted exams where dose is matched to indication/reason for exam; i.e. extremities or head) *Use of iterative reconstruction technique DLP: 919 mGy-cm FINDINGS: LUNG BASES: There are new small right lower lobe pulmonary nodules, largest measuring 3 mm axial image 9 series 8. There is bilateral lower lobe mild bronchiectasis and atelectasis. The heart does not appear enlarged. There is a small pericardial effusion similar to previous exam. LIVER, GALLBLADDER, AND BILIARY TREE: The liver is normal in size, shape, and attenuation. No focal hepatic lesion or biliary ductal dilatation is present. The gallbladder is unremarkable with no evidence of radiopaque gallstones, gallbladder wall thickening, or obvious pericholecystic inflammatory changes. PANCREAS: There is fatty infiltration of the head and body of the pancreas. This is similar to September 2016 exam. The pancreas is otherwise unremarkable. SPLEEN: Unremarkable. ADRENAL GLANDS: Unremarkable. KIDNEYS AND URETERS: There are bilateral cortical calcifications in the kidneys measuring 6 mm in the upper pole of the left kidney and 4 mm in the lower pole of the right kidney. This is similar to 2017 exam. No definite renal stone is seen. No hydronephrosis, ureteral dilatation or ureteral stone is seen. BLADDER: Not optimally distended. It is difficult to exclude mild diffuse bladder wall thickening. GASTROINTESTINAL TRACT: Mild diverticulosis of the colon. No evidence of diverticulitis. The small and large bowel is otherwise normal. The appendix is normal. The stomach is normal. ABDOMINAL WALL: No significant hernia is appreciated. LYMPH NODES: Normal. VASCULAR: Unremarkable. PELVIC VISCERA: Unremarkable. OSSEOUS STRUCTURES: There is degenerative disc disease at L5-S1 spondylosis. CT/CT abdomen pelvis wo con IMPRESSION: Fatty infiltration of the pancreas. Stable bilateral renal cortical calcifications. Mild diverticulosis of the colon. Nondistended bladder. It is difficult to exclude bladder wall thickening. Clinical correlation recommended. New small right lower lobe pulmonary nodules and new bilateral lower lobe bronchiectasis and atelectasis.
--- NOTE | ~2021-02-27 | US_ITS ---
EXAMINATION: RIGHT LOWER EXTREMITY DEEP VENOUS ULTRASOUND CLINICAL INFORMATION: Right leg pain after procedure. COMPARISON: None. TECHNIQUE: Duplex Doppler imaging with compression maneuvers were performed of the right lower extremity deep venous system. FINDINGS: The visualized common femoral, femoral and popliteal veins demonstrate normal compressibility and color flow without evidence of venous thrombosis. Visualized portions of the calf veins demonstrate normal color fill-in suggesting patency. There is no evidence of a Lin's cyst. US/US venous duplex LE RT IMPRESSION: No evidence of deep venous thrombosis involving the right lower extremity.
[2021-02-27 12:09] VITALS: BP 125/82; PULSE 112; RESP 18; TEMP 36.5; O2SAT 98; BMI 43.2
--- NOTE | 2021-02-27 12:27 | ED.GENADULT ---
HPI - General Adult General Chief complaint: General Medical Stated complaint: fever/swelling in hand/knee Time Seen by Provider: 02/27/21 12:24 History of Present Illness HPI narrative: Patient is 55 years old presents today with having pain in the right leg. Also having nausea vomiting ever since having a LEEP procedure done yesterday. No fever no chills. No cough no congestion. No swelling to the leg positive pain and the backside of the thigh. Patient denies any diaphoresis. No chest pain or shortness of breath. Extreme nausea unable to keep down fluids. Presented to the ED for further evaluation. Related Data Home Medications Medication Instructions Recorded Confirmed paroxetine HCl 40 mg tablet 40 mg PO BEDTIME 07/22/20 01/22/21 paroxetine HCl 10 mg tablet 10 mg PO BEDTIME 10/01/20 01/22/21 Previous Rx's Medication Instructions Recorded spironolactone 50 mg tablet 50 mg PO BID 90 Days #180 tab 04/28/20 cholecalciferol (vitamin D3) 50 50 mcg PO DAILY 90 Days #90 cap 07/22/20 mcg (2,000 unit) capsule levothyroxine 112 mcg tablet 112 mcg PO DAILY 90 Days #90 tab 07/22/20 metoprolol succinate 100 mg 100 mg PO BID #180 tab 12/06/20 tablet,extended release 24 hr ezetimibe 10 mg tablet 10 mg PO DAILY 90 Days #90 tab 12/07/20 nifedipine 30 mg tablet,extended 30 mg PO DAILY #90 tab 12/12/20 release atorvastatin 80 mg tablet 80 mg PO DAILY 90 Days #90 tab 01/05/21 albuterol sulfate 90 mcg/actuation 2 puff INHALATION Q6H PRN #6.7 g 01/21/21 aerosol inhaler benzonatate 100 mg capsule 100 mg PO TID PRN #30 cap 01/21/21 (Tesjose Correa) prednisone 20 mg tablet 40 mg PO DAILY 5 Days #10 tab 01/21/21 bictegravir 50 mg-emtricitabine 1 tab PO DAILY 90 Days #90 tab 01/26/21 200 mg-tenofovir alafenam 25 mg tablet (Biktarvy) aspirin 81 mg chewable tablet 81 mg PO DAILY 90 Days #90 tab 01/28/21 ondansetron HCl 4 mg tablet 4 mg PO Q8H PRN #10 tab 02/27/21 (Zofran) ondansetron HCl 4 mg tablet 4 mg PO Q8H PRN #10 tab 02/27/21 (Zofran) Allergies Allergy/AdvReac Type Severity Reaction Status Date / Time amlodipine [AMLODIPINE] Allergy Unknown RASH Verified 01/21/21 15:03 cephalexin [From KEFLEX] Allergy Unknown RASH Verified 01/21/21 15:03 levofloxacin [From LEVAQUIN] Allergy Unknown RASH Verified 01/21/21 15:03 Pt states no food allergies Allergy Unknown Unknown Uncoded 01/21/21 15:03 Review of Systems Review of Systems: Positive nausea vomiting Positive generalized malaise All systems reviewed otherwise negative PMFSH Past Medical History Attestation statement: The following information was validated with the patient. Medical History Anxiety Atherosclerotic cardiovascular disease Cervical radiculitis Chronic kidney disease, stage 2 (mild) Dyslipidemia Essential hypertension GERD (gastroesophageal reflux disease) Graves disease Darian's disease History of paresthesia HIV (human immunodeficiency virus infection) HTN (hypertension) Iron (Fe) deficiency anemia Leukopenia LGSIL (low grade squamous intraepithelial dysplasia) Lumbar radiculopathy Morbid obesity Obstructive sleep apnea Osteoarthritis Other and unspecified hyperlipidemia Pernicious anemia Pituitary microadenoma Pituitary microadenoma Positive KALYANI (antinuclear antibody) Post-surgical hypothyroidism Raynaud's phenomenon SI (sacroiliac) pain Thyroid nodule Vitamin B12 deficiency Vitamin D deficiency Surgical History History of temporal artery biopsy History of thyroidectomy History of tonsillectomy History of tubal ligation Hx of colonoscopy Hx of esophagogastroduodenoscopy Family History Family History Father No problems noted. Mother Stroke Sister Diabetes mellitus Maternal Grandmother Unknown family medical history Brother Cancer Sister No problems noted. Brother No problems noted. Daughter Healthy female Social History Social History Housing: Apartment Alcohol intake: never Patient Tobacco Use Status: Never used Tobacco e-Cigarette/Vaping Use: Never Used Second Hand Smoke Exposure: No Use of substances other than those prescribed or required for medical reasons: No Advance Directives: No Advance Directives Information Provided: No Current occupational status: disabled Physical Exam Vital Signs: Vital Signs: Last Vital Signs Temp 97.7 F 02/27/21 12:09 Pulse 112 H 02/27/21 12:09 Resp 18 02/27/21 12:09 BP 125/82 02/27/21 12:09 Pulse Ox 98 02/27/21 12:09 Body Mass Index 43.2 Appearance: Alert. Oriented X3. No acute distress. Eyes: Pupils equal, round and reactive to light. ENT: Pharynx normal. Neck: Normal inspection. Neck supple. No lymph nodes noted. No crepitus CVS: Normal heart rate and rhythm. Pulses normal. Normal S1 and S2 Respiratory: No respiratory distress. Breath sounds normal. No Wheezing. No rales Abdomen: Soft and nontender. No rigidity. No distention. good BS x4 Skin: Skin warm and dry. Normal skin color. Normal skin turgor. Extremities: No lower extremity edema. Neurovascular intact to all extremities. No Lacerations. No Rash Neuro: Oriented X 3. No motor deficit. No sensory deficit. Moving all extermities. No slurred speech Medical Decision Making MDM Narrative Medical decision making narrative: Doppler of the lower extremity showed no evidence of blood clots. Doppler of the right upper extremity also had negative blood clots. CT scan of the abdomen showed no abscess no perforation. No obstruction. Patient symptoms improved with Zofran and IV fluids question related to anesthetic given during the procedure. Patient well-appearing will discharge patient home. In stable condition. Lab Data Result diagrams: 02/27/21 12:34 02/27/21 12:34 Labs: Lab Results 02/27/21 02/27/21 02/27/21 Range/Units 12:34 12:34 14:09 WBC 10.5 (4.8-10.8) X10*3/uL RBC 4.71 (4.20-5.50) X10*6/uL Hgb 13.3 (12.0-16.0) g/dl Hct 40.7 (37.0-47.0) % MCV 86.4 (80.0-98.0) fL MCH 28.2 (27.0-33.0) pg MCHC 32.7 (31.0-35.0) g/dl RDW 14.4 (11.0-16.0) % Plt Count 267 (160-400) X10*3/uL MPV 10.9 (9.4-12.3) fL Immature Gran % (Auto) 0.5 H (0.0-0.4) % Neut % (Auto) 75.1 H (45-73) % Lymph % (Auto) 18.5 L (20-40) % [place] % (Auto) 5.0 (2-11) % Eos % (Auto) 0.7 (0-4) % Baso % (Auto) 0.2 (0-2) % Lymph # (Auto) 1.9 (1.2-4.9) X10*3/uL [place] # (Auto) 0.5 (0.1-1.2) X10*3/uL Eos # (Auto) 0.1 (0.0-0.4) X10*3/uL Baso # (Auto) 0.0 (0.0-0.2) X10*3/uL Abs Immat Gran (auto) 0.05 H (0.00-0.03) X10*3/uL Absolute Neuts (auto) 7.9 (2.0-8.3) x10*3/uL Absolute Nucleated RBC 0.000 (0.0-0.012) X10*3/uL Nucleated RBC % (auto) 0.0 (0.0-0.2) /100WBC Sodium 136 (135-145) mmol/L Potassium 5.1 D (3.3-5.1) mmol/L Chloride 105 (96-108) mmol/L Carbon Dioxide 19 L (22-29) mmol/L Anion Gap 17 (12-20) BUN 13 (9-16) mg/dL Creatinine 1.36 (0.5-1.4) mg/dL Estim Creat Clear Calc 51.8 Estimated GFR 40 Random Glucose 124 H (60-115) mg/dL Calcium 9.2 (8.4-10.2) mg/dL Total Bilirubin 0.6 (0.0-1.0) mg/dL Direct Bilirubin 0.2 (0.0-0.5) mg/dL AST 32 H D (5-31) U/L ALT 24 (0-31) U/L Alkaline Phosphatase 128 H (39-117) U/L Total Protein 8.1 H (6.5-8.0) g/dL Albumin 4.2 (3.5-5.0) g/dL Lipase 19 (8-78) U/L Urine Color YELLOW Urine Appearance CLEAR Urine pH 7.0 (5.0-8.0) Ur Specific [place] 1.010 (1.005-1.025) Urine Protein NEG (NEG-TRACE) MG/DL Urine Glucose (UA) NEG (NEG) MG/DL Urine Ketones NEG (NEG) MG/DL Urine Blood TRACE (NEG) Urine Nitrite NEG (NEG) Ur Leukocyte Esterase NEG (NEG) Urine RBC 1-4 (0) /HPF Urine WBC 0-2 (0-4) /HPF Ur Squamous Epith Cells TRACE /LPF Urine Bacteria NONE /LPF Discharge Plan Discharge Clinical Impression: Vomiting Patient Disposition: Home, Self-Care Instructions: Acute Nausea and Vomiting (ED) Prescriptions: New ondansetron HCl [Zofran] 4 mg tablet 4 mg PO Q8H PRN (Reason: nausea and vomiting) Qty: 10 RF: 0 ondansetron HCl [Zofran] 4 mg tablet 4 mg PO Q8H PRN (Reason: nausea and vomiting) Qty: 10 RF: 0 No Action spironolactone 50 mg tablet 50 mg PO BID 90 Days Qty: 180 RF: 0 metoprolol succinate 100 mg tablet extended release 24 hr 100 mg PO BID Qty: 180 RF: 0 ezetimibe 10 mg tablet 10 mg PO DAILY 90 Days Qty: 90 RF: 3 nifedipine 30 mg tablet extended release 30 mg PO DAILY Qty: 90 RF: 0 atorvastatin 80 mg tablet 80 mg PO DAILY 90 Days Qty: 90 RF: 3 Biktarvy 50-200-25 mg tablet 1 tab PO DAILY 90 Days Qty: 90 RF: 1 aspirin 81 mg tablet,chewable 81 mg PO DAILY 90 Days Qty: 90 RF: 3 paroxetine HCl 10 mg tablet 10 mg PO BEDTIME RF: 0 prednisone 20 mg tablet 40 mg PO DAILY 5 Days Qty: 10 RF: 0 benzonatate [Tessalon Perles] 100 mg capsule 100 mg PO TID PRN (Reason: cough) Qty: 30 RF: 0 albuterol sulfate 90 mcg/actuation HFA aerosol inhaler 2 puff inhalation Q6H PRN (Reason: shortness of breath or wheezing) Qty: 6.7 RF: 0 paroxetine HCl 40 mg tablet 40 mg PO BEDTIME RF: 0 levothyroxine 112 mcg tablet 112 mcg PO DAILY 90 Days Qty: 90 RF: 2 cholecalciferol (vitamin D3) 50 mcg (2,000 unit) capsule 50 mcg PO DAILY 90 Days Qty: 90 RF: 2 Referrals: Kenroy Freeman, [facility] [Primary Care Provider] - 2 days
[2021-02-27] MEDS: ondansetron HCL 4 MG/2 ML VIAL IVPUSH (12:33)
[2021-02-27 12:37] LABS: MANUAL DIFF FLAG NO
[2021-02-27 12:39] LABS: Basophils Percent Auto 0.2 % (0-2); Eosinophils Absolute Auto 0.1 X10*3/uL (0.0-0.4); Eosinophils Percent Auto 0.7 % (0-4); Hematocrit 40.7 % (37.0-47.0); Hemoglobin 13.3 g/dl (12.0-16.0); Imm Gran Abs Auto 0.05 X10*3/uL (0.00-0.03); Imm Gran Pct Auto 0.5 % (0.0-0.4); Lymphocytes Absolute Auto 1.9 X10*3/uL (1.2-4.9); Lymphocytes Percent Auto 18.5 % (20-40); Mean Corpuscular HGB Conc 32.7 g/dl (31.0-35.0); Mean Corpuscular Hemoglobin 28.2 pg (27.0-33.0); Mean Corpuscular Volume 86.4 fL (80.0-98.0); Mean Platelet Volume 10.9 fL (9.4-12.3); Monocytes Absolute Auto 0.5 X10*3/uL (0.1-1.2); Neutrophils Absolute Auto 7.9 x10*3/uL (2.0-8.3); Neutrophils Percent Auto 75.1 % (45-73); Platelet Count 267 X10*3/uL (160-400); Red Blood Count 4.71 X10*6/uL (4.20-5.50); Red Cell Distribution Width 14.4 % (11.0-16.0); White Blood Count 10.5 X10*3/uL (4.8-10.8)
[2021-02-27 13:05] LABS: Alanine Aminotransferase 24 U/L (0-31); Albumin Level 4.2 g/dL (3.5-5.0); Alkaline Phosphatase 128 U/L (39-117); Anion Gap 17 (12-20); Aspartate Amino Transferase 32 U/L (5-31); Bilirubin Direct 0.2 mg/dL (0.0-0.5); Bilirubin Total 0.6 mg/dL (0.0-1.0); Blood Urea Nitrogen 13 mg/dL (9-16); Calcium 9.2 mg/dL (8.4-10.2); Carbon Dioxide 19 mmol/L (22-29); Chloride 105 mmol/L (96-108); Creatinine Clr Calc Pharmacy 51.8; Estimated Glomerular Filt Rate 40; Glucose Random 124 mg/dL (60-115); Lipase 19 U/L (8-78); Potassium 5.1 mmol/L (3.3-5.1); Sodium 136 mmol/L (135-145); Total Protein 8.1 g/dL (6.5-8.0)
[2021-02-27 14:16] LABS: Appearance Urine CLEAR; Color Urine YELLOW; Glucose Urine UA NEG (NEG); Leukocyte Esterase Urine NEG (NEG); Nitrite Urine NEG (NEG); UACC Culture Trigger NO; Urine Blood TRACE (NEG); Urine Ketones NEG (NEG); Urine Protein NEG (NEG-TRACE)
[2021-02-27 14:33] LABS: Squamous Epithelial Cell Urine TRACE /LPF; WBC Urine 0-2 /HPF (0-4)
== END 2021-02-27 15:33 | disposition home or self-care (01) ==
PROVIDERS: Emergency Provider Emergency Medicine Emergency Medical Services; PCP Nurse Practitioner Family
DX: R50.9 Fever, unspecified (principal); M79.604 Pain in right leg; R60.0 Localized edema; R11.2 Nausea with vomiting, unspecified; Z79.899 Other long term (current) drug therapy
CPT/HCPCS: 36415; 74176; 80048; 80076; 81001; 83690; 85025; 93971; 96374; 99284; J2405

== ENCOUNTER → 2021-03-09 15:37 | Outpatient (BNVA) | payer OTHER, SELFPAY | PROVIDERS: PCP Nurse Practitioner Family; Visit Provider Obstetrics & Gynecology | DX: D06.9 Carcinoma in situ of cervix, unspecified (principal) | CPT/HCPCS: 99212 ==

== ENCOUNTER → 2021-05-03 10:54 | Outpatient (BNVA) | payer OTHER, SELFPAY | PROVIDERS: PCP Nurse Practitioner Family; Referring Provider Nurse Practitioner Family; Visit Provider Internal Medicine | DX: I25.10 Atherosclerotic heart disease of native coronary artery without angina pectoris (principal); I10 Essential (primary) hypertension; E78.5 Hyperlipidemia, unspecified; G47.33 Obstructive sleep apnea (adult) (pediatric); E66.01 Morbid (severe) obesity due to excess calories; Z68.41 Body mass index [BMI] 40.0-44.9, adult | CPT/HCPCS: 93005; 99212 ==

== ENCOUNTER 2021-05-13 14:00 | Outpatient (REF) | payer OTHER, SELFPAY ==
[2021-05-13 14:38] LABS: MANUAL DIFF FLAG NO
[2021-05-13 14:41] LABS: Basophils Percent Auto 0.2 % (0-2); Eosinophils Percent Auto 0.6 % (0-4); Hematocrit 40.6 % (37.0-47.0); Hemoglobin 12.8 g/dl (12.0-16.0); Imm Gran Abs Auto 0.02 X10*3/uL (0.00-0.03); Imm Gran Pct Auto 0.4 % (0.0-0.4); Lymphocytes Absolute Auto 2.8 X10*3/uL (1.2-4.9); Lymphocytes Percent Auto 52.7 % (20-40); Mean Corpuscular HGB Conc 31.5 g/dl (31.0-35.0); Mean Corpuscular Hemoglobin 27.3 pg (27.0-33.0); Mean Corpuscular Volume 86.6 fL (80.0-98.0); Mean Platelet Volume 10.9 fL (9.4-12.3); Monocytes Absolute Auto 0.4 X10*3/uL (0.1-1.2); Monocytes Percent Auto 6.7 % (2-11); Neutrophils Absolute Auto 2.1 x10*3/uL (2.0-8.3); Neutrophils Percent Auto 39.4 % (45-73); Platelet Count 248 X10*3/uL (160-400); Red Blood Count 4.69 X10*6/uL (4.20-5.50); Red Cell Distribution Width 13.9 % (11.0-16.0); White Blood Count 5.2 X10*3/uL (4.8-10.8)
[2021-05-13 15:11] LABS: Anion Gap 11 (12-20); Blood Urea Nitrogen 21 mg/dL (9-16); Carbon Dioxide 24 mmol/L (22-29); Chloride 107 mmol/L (96-108); Estimated Glomerular Filt Rate 36; Iron 86 mcg/dL (30-160); Percent Iron Saturation 23 % (15-50); Potassium 4.3 mmol/L (3.3-5.1); Sodium 138 mmol/L (135-145); Total Iron Binding Capacity 366 mcg/dL (228-428); Unsaturated Iron Binding 280 ug/dL
[2021-05-13 15:32] LABS: Vitamin D 25-OH Total 43.5 ng/mL (>30)
[2021-05-13 16:04] LABS: Appearance Urine CLEAR; Color Urine YELLOW; Glucose Urine UA NEG (NEG); Leukocyte Esterase Urine NEG (NEG); Nitrite Urine NEG (NEG); PH 5.5 (5.0-8.0); Specific Gravity - Urine 1.015 (1.005-1.025); Urine Blood NEG (NEG); Urine Ketones NEG (NEG); Urine Protein NEG (NEG-TRACE)
[2021-05-13 16:29] LABS: Creatinine Urine 224.35 mg/dL; Protein/Creatinine Ratio, Ur 0.04 (<0.2); Total Protein Urine Random 8 mg/dL (<12)
[2021-05-14 14:07] LABS: Calcium (PTHI) 9.9 mg/dL (8.6-10.4); PTHI 60 pg/mL (14-64)
== END 2021-05-13 14:01 | disposition home or self-care (01) ==
LOC: HO.LAB 14:00
PROVIDERS: PCP Nurse Practitioner Family; Visit Provider Internal Medicine Nephrology
DX: R80.9 Proteinuria, unspecified (principal); I12.9 Hypertensive chronic kidney disease with stage 1 through stage 4 chronic kidney disease, or unspecified chronic kidney disease; N18.2 Chronic kidney disease, stage 2 (mild)
CPT/HCPCS: 36415; 80051; 81003; 82306; 82565; 83540; 83970; 84156; 84520; 85025

== ENCOUNTER 2021-06-18 08:07 | Outpatient (REF) | payer OTHER, SELFPAY ==
[2021-06-18 10:26] LABS: Hematocrit 41.8 % (37.0-47.0); Hemoglobin 13.1 g/dl (12.0-16.0); Mean Corpuscular HGB Conc 31.3 g/dl (31.0-35.0); Mean Corpuscular Hemoglobin 27.6 pg (27.0-33.0); Mean Platelet Volume 10.6 fL (9.4-12.3); Platelet Count 248 X10*3/uL (160-400); Red Blood Count 4.75 X10*6/uL (4.20-5.50); Red Cell Distribution Width 13.7 % (11.0-16.0); White Blood Count 4.9 X10*3/uL (4.8-10.8)
[2021-06-18 11:07] LABS: Alanine Aminotransferase 24 U/L (0-31); Albumin Level 4.2 g/dL (3.5-5.0); Alkaline Phosphatase 159 U/L (39-117); Anion Gap 11 (12-20); Aspartate Amino Transferase 23 U/L (5-31); Bilirubin Direct 0.2 mg/dL (0.0-0.5); Bilirubin Total 0.4 mg/dL (0.0-1.0); Blood Urea Nitrogen 20 mg/dL (9-16); Calcium 9.6 mg/dL (8.4-10.2); Carbon Dioxide 28 mmol/L (22-29); Chloride 108 mmol/L (96-108); Estimated Glomerular Filt Rate 41; Glucose Random 109 mg/dL (60-115); Potassium 4.2 mmol/L (3.3-5.1); Sodium 143 mmol/L (135-145); Total Protein 7.5 g/dL (6.5-8.0)
[2021-06-18 11:08] LABS: ~HepC Num1 0.08 S/CO (0.00-0.79); ~Hepatitis C Antibody Nonreactive (Nonreactive)
[2021-06-18 11:12] LABS: Syphilis Screen Nonreactive (Nonreactive)
[2021-06-18 11:30] LABS: Free T4 (Free Thyroxine) 1.41 ng/dL (0.71-1.85); Thyroid Stimulating Hormone 0.05 uIU/mL (0.32-4.0)
[2021-06-18 12:18] LABS: Creatinine Urine 132.53 mg/dL
[2021-06-19 15:11] LABS: Absolute CD3 Count 1852 cells/uL (840-3060); Absolute CD4 Count 1002 cells/uL (490-1740); Absolute CD8 Count 869 cells/uL (180-1170); Absolute Lymphocytes 2303 cells/uL (850-3900); CD4 CD8 Ratio 1.15 (0.86-5.00); Percent CD3 Cells 80 % (57-85); Percent CD4 Cells 43 % (30-61); Percent CD8 Cells 38 % (12-42)
[2021-06-21 14:36] LABS: Adrenocorticotropic Hormone 44 pg/mL (6-50)
[2021-06-22 15:12] LABS: HIV RNA PCR Qn Copies 24 copies/mL (NOT DETECTED); HIV RNA PCR Qn Log Copies 1.38 (NOT DETECTED)
== END 2021-06-18 08:08 | disposition home or self-care (01) ==
LOC: HO.LAB 08:07
PROVIDERS: Absent Provider Internal Medicine; PCP Nurse Practitioner Family; Visit Provider Internal Medicine Endocrinology, Diabetes & Metabolism
DX: D35.2 Benign neoplasm of pituitary gland (principal); E05.00 Thyrotoxicosis with diffuse goiter without thyrotoxic crisis or storm; B20 Human immunodeficiency virus [HIV] disease
CPT/HCPCS: 36415; 80048; 80076; 82024; 84439; 84443; 85027; 86359; 86360; 86780; 86803; 87536; 99212

== ENCOUNTER → 2021-06-24 10:36 | Outpatient (REF) | payer OTHER, SELFPAY ==
--- NOTE | 2021-06-24 10:39 | CA_ITS ---
Transthoracic Echocardiogram Amended Patient (Last, First, Middle): Miriam Chacon J Gender: Female Date of : 1965 Age: 55 Procedure Date: 06/24/2021 Procedure Type: Transthoracic Echocardiogram Location: OP Height: 154.94 cm Weight: 102.06 kg BSA: 1.99 m2 Heart Rate: bpm BP: 132 / 88 mmHg Outside Sales Inspector: PATY Referring MD: Kenroy Freeman [facility] Merchandiser: Aubrey Ayers MD Symptoms: I34.0 - Nonrheumatic mitral (valve) insufficiency Study Quality: Fair ECG Rhythm: Sinus Conclusions: - 1. Normal LV systolic function with impaired relaxation filling pattern next 2. Mild mitral regurgitation 3. Mildly dilated left atrium 4. Normal RV systolic pressure 5. No pericardial effusion Findings Left Ventricle Normal left ventricular size, thickness, and systolic function. The visually estimated ejection fraction is between 60-65%. Spectral Doppler is indicative of an impaired relaxation filling pattern. E/E prime ratio is between 8 and 15 consistent with indeterminate filling pressures. Measured peak global longitudinal endocardial strain is -17.2%, within normal limits Right Ventricle Normal right ventricular cavity size and systolic function. Atria The left atrium is mildly dilated. Interatrial shunt cannot be excluded. The right atrium is normal in size. Aortic Valve The aortic valve structure and function is likely normal. There is no aortic valve stenosis. There is no aortic valve regurgitation. Mitral Valve Likely normal mitral valve structure and function. There is mild mitral valve regurgitation. There is no mitral valve stenosis. Pulmonic Valve The pulmonic valve was not well visualized. Tricuspid Valve Likely normal tricuspid valve structure and function. There is trace tricuspid valve regurgitation. The right ventricular systolic pressure is normal. The right ventricular systolic pressure is 14 mmHg. Normal right atrial pressure. Great Vessels All visible segments of the aorta are normal in size. The pulmonary artery was not well visualized. Venous The inferior vena cava is normal in size and collapses greater than 50% with inspiration. Pericardium/Pleural There is no evidence of pericardial effusion. Prior Study Comparison No significant change compared to prior study dated: 02/21/2020. Measurements 2D Linear Measurements IVSd: 1.07 0.6-0.9/0.6-1.0 cm LVIDd: 4.94 3.9-5.3/4.2-5.9 cm LVIDd Index: 2.48 2.4-3.2/2.2-3.1 cm/m2 LVIDs: 2.82 2.0-3.6 cm LVPWd: 1.05 0.7-1.1 cm LA Diam: 3.80 2.7-3.8/3.0-4.0 cm LAIDs Index: 1.91 1.5-2.3 cm/m2 LV Mass: 240.60 67-162/88-224 g LV Mass Index: 120.90 43-95/49-115 g/m2 LVOT Diam: 2.10 3.0+(-)1.3 cm 2D Systolic Function EF 4C: 64.10 >55% EF 2C: 64.30 >55% EF BiP: 65.00 >55% Mitral Valve MV Pk E: 0.80 MV PK A: 0.56 MV Decel Time: 212.00 E/A: 1.40 E'Lateral: 10.60 E'Medial: 6.53 E/E' Med: 12.20 E/E' Lat: 7.50 PHT: 62.00 MVA PHT: 3.55 Decel Edwards: 3.75 Aortic Valve AoV Pk Manjinder: 1.38 AoV Mn Manjinder: 0.96 AoV VTI: 0.31 AoV Pk Grad: 8.00 Aov Mn Grad: 4.00 KITTY Cont.VTI: 2.85 LVOT LVOT Pk Manjinder: 1.01 LVOT Mn Manjinder: 0.70 LVOT VTI: 0.26 LVOT Pk Grad: 4.00 LVOT Mn Grad: 2.00 LVOT Diam: 2.10 LVOT Area: 3.46 Diastolic Function MV Pk E: 0.80 MV Pk A: 0.56 E/A: 1.40 E'Medial: 6.53 E/E' Med: 12.20 E' Laterial: 10.60 E/E' Lat: 7.50 Right Ventricle TAPSE (mm): 19.50 TVS' Manjinder: 9.90 Tricuspid Valve TR Pk Manjinder: 1.64 TR Pk Grad: 11.00 RA Press: 3.00 RVSP: 14.00 Great Vessels Aorta Sinus of Valsalva: 3.20 2.0-3.[address] Ridge: 3.00 1.7-3.4 cm Ao Asc: 3.50 2.1-3.4 cm Ao Arch: 3.60 Updated in Other Vendor System with Status of Final Aubrey Ayers MD electronically signed on 06/25/2021 12:11:02 PM with status of Final
== END ==
LOC: HO.CARD 10:36
PROVIDERS: PCP Nurse Practitioner Family; Visit Provider Nurse Practitioner Family
DX: I34.0 Nonrheumatic mitral (valve) insufficiency (principal)
CPT/HCPCS: 93306; 93356

== ENCOUNTER → 2021-07-12 15:35 | Outpatient (BNVA) | payer OTHER, SELFPAY | PROVIDERS: Visit Provider Internal Medicine | DX: B20 Human immunodeficiency virus [HIV] disease (principal) | CPT/HCPCS: 99212 ==

== ENCOUNTER 2021-07-23 09:20 | Outpatient (REF) | payer OTHER, SELFPAY ==
--- NOTE | ~2021-07-23 | XR_ITS ---
EXAMINATION: XR CHEST CLINICAL INFORMATION: Wheezing. COMPARISON: 11/09/2018 chest radiographs. TECHNIQUE: 2 views of the chest were obtained. FINDINGS: There is mild elevation of the anterior right hemidiaphragm without significant change. The lungs are clear. There are no pleural effusions. The heart and mediastinal structures are unremarkable. XR/XR chest 2V IMPRESSION: No acute cardiopulmonary process.
[2021-07-23 12:22] LABS: Free T4 (Free Thyroxine) 1.32 ng/dL (0.71-1.85); Thyroid Stimulating Hormone 0.18 uIU/mL (0.32-4.0)
== END 2021-07-23 09:21 | disposition home or self-care (01) ==
LOC: HO.HMGCLDS 09:20
PROVIDERS: Absent Provider Nurse Practitioner Family; PCP Nurse Practitioner Family; Visit Provider Internal Medicine Endocrinology, Diabetes & Metabolism
DX: R06.2 Wheezing (principal); E89.0 Postprocedural hypothyroidism
CPT/HCPCS: 36415; 71046; 84439; 84443

== ENCOUNTER 2021-07-31 16:17 | Outpatient (REF) | payer OTHER, SELFPAY | END 2021-07-31 16:18 | disposition home or self-care (01) | LOC: HO.LNP 16:17 | PROVIDERS: Visit Provider Physician Assistant Medical | DX: R21 Rash and other nonspecific skin eruption (principal) | CPT/HCPCS: 87071; 87205 ==

== ENCOUNTER 2021-08-18 09:48 | Outpatient (REF) | payer OTHER, SELFPAY ==
[2021-08-18 11:27] LABS: Appearance Urine CLEAR; Color Urine YELLOW; Glucose Urine UA NEG (NEG); Leukocyte Esterase Urine NEG (NEG); Nitrite Urine NEG (NEG); UACC Culture Trigger NO; Urine Blood 1+ (NEG); Urine Ketones NEG (NEG); Urine Protein NEG (NEG-TRACE)
[2021-08-18 11:55] LABS: Bacteria Urine TRACE /LPF; RBC Urine 0-2 /HPF (0); Squamous Epithelial Cell Urine TRACE /LPF
[2021-08-18 11:56] LABS: WBC Urine 0 /HPF (0-4)
[2021-08-18 11:58] LABS: Free T4 (Free Thyroxine) 1.15 ng/dL (0.71-1.85); Thyroid Stimulating Hormone 1.83 uIU/mL (0.32-4.0)
[2021-08-18 11:59] LABS: Alanine Aminotransferase 28 U/L (0-31); Albumin Level 4.3 g/dL (3.5-5.0); Alkaline Phosphatase 151 U/L (39-117); Anion Gap 13 (12-20); Aspartate Amino Transferase 24 U/L (5-31); Blood Urea Nitrogen 17 mg/dL (9-16); Calcium 9.5 mg/dL (8.4-10.2); Carbon Dioxide 26 mmol/L (22-29); Chloride 104 mmol/L (96-108); Cholesterol 112 mg/dL; Estimated Glomerular Filt Rate 38; Glucose Fasting 101 mg/dL (60-99); HDL Cholesterol 41 mg/dL; LDL Cholesterol Calculated 52 mg/dl; Potassium 4.2 mmol/L (3.3-5.1); Sodium 139 mmol/L (135-145); Total Protein 7.8 g/dL (6.5-8.0); Triglycerides 98 mg/dL
[2021-08-18 12:00] LABS: TSH reflex Free T4 1.73 uIU/mL (0.32-4.0); Vitamin D 25-OH Total 45.2 ng/mL (>30)
== END 2021-08-18 09:49 | disposition home or self-care (01) ==
LOC: HO.HMGCLDS 09:48
PROVIDERS: Internal Medicine Endocrinology, Diabetes & Metabolism; PCP Nurse Practitioner Family; Visit Provider Nurse Practitioner Family
DX: Z00.00 Encounter for general adult medical examination without abnormal findings (principal); E89.0 Postprocedural hypothyroidism; Z78.0 Asymptomatic menopausal state
CPT/HCPCS: 36415; 80053; 80061; 81001; 82306; 84439; 84443

== ENCOUNTER 2021-09-28 23:00 | Outpatient (REF) | payer OTHER, SELFPAY ==
[2021-10-06 13:32] LABS: Saliva Cortisol 0.05 mcg/dL
== END 2021-09-28 23:01 | disposition home or self-care (01) ==
LOC: HO.LNP 23:00
PROVIDERS: Internal Medicine Endocrinology, Diabetes & Metabolism; Visit Provider Internal Medicine Endocrinology, Diabetes & Metabolism
DX: D35.2 Benign neoplasm of pituitary gland (principal)
CPT/HCPCS: 82530

== ENCOUNTER 2021-09-29 12:39 | Outpatient (REF) | payer OTHER, SELFPAY ==
[2021-09-29 13:15] LABS: Creatinine, mg/dL 66.43
[2021-09-29 13:41] LABS: Total Volume 24 Hour Urine 1450 mL
[2021-10-05 21:41] LABS: Cortisol Free, 24 Hr Urine 12.8 mcg/24 h (4.0-50.0); Creatinine, 24 Hr Urine 1.01 g/24 h (0.50-2.15); Total Volume, 24 Hr Urine 1450 mL
== END 2021-09-29 12:40 | disposition home or self-care (01) ==
LOC: HO.LNP 12:39
PROVIDERS: Visit Provider Internal Medicine Endocrinology, Diabetes & Metabolism
DX: D35.2 Benign neoplasm of pituitary gland (principal)
CPT/HCPCS: 82530; 82570

== ENCOUNTER → 2021-10-07 09:43 | Outpatient (BNVA) | payer OTHER, SELFPAY | PROVIDERS: PCP Nurse Practitioner Family; Visit Provider Internal Medicine Endocrinology, Diabetes & Metabolism | DX: D35.2 Benign neoplasm of pituitary gland (principal); E05.00 Thyrotoxicosis with diffuse goiter without thyrotoxic crisis or storm | CPT/HCPCS: 99212 ==

== ENCOUNTER → 2021-12-01 14:01 | Outpatient (BNVA) | payer OTHER, SELFPAY | PROVIDERS: PCP Nurse Practitioner Family; Referring Provider Nurse Practitioner Family; Visit Provider Internal Medicine | DX: I25.10 Atherosclerotic heart disease of native coronary artery without angina pectoris (principal); I10 Essential (primary) hypertension; E78.5 Hyperlipidemia, unspecified; E66.01 Morbid (severe) obesity due to excess calories; Z68.41 Body mass index [BMI] 40.0-44.9, adult; G47.33 Obstructive sleep apnea (adult) (pediatric); Z79.82 Long term (current) use of aspirin; Z79.899 Other long term (current) drug therapy; Z99.89 Dependence on other enabling machines and devices | CPT/HCPCS: 99212 ==

== ENCOUNTER 2021-12-06 14:17 | Emergency (ER) | payer OTHER, SELFPAY ==
[2021-12-06 14:30] VITALS: BP 146/99; PULSE 84; RESP 19; TEMP 37.3; O2SAT 99; BMI 41.6
[2021-12-06 15:02] LABS: MANUAL DIFF FLAG NO
[2021-12-06 15:08] LABS: Eosinophils Percent Auto 0.4 % (0-4); Hematocrit 41.4 % (37.0-47.0); Hemoglobin 13.5 g/dl (12.0-16.0); Imm Gran Abs Auto 0.01 X10*3/uL (0.00-0.03); Imm Gran Pct Auto 0.2 % (0.0-0.4); Lymphocytes Absolute Auto 2.1 X10*3/uL (1.2-4.9); Lymphocytes Percent Auto 41.1 % (20-40); Mean Corpuscular HGB Conc 32.6 g/dl (31.0-35.0); Mean Corpuscular Hemoglobin 28.2 pg (27.0-33.0); Mean Corpuscular Volume 86.6 fL (80.0-98.0); Monocytes Absolute Auto 0.3 X10*3/uL (0.1-1.2); Monocytes Percent Auto 5.3 % (2-11); Neutrophils Absolute Auto 2.7 x10*3/uL (2.0-8.3); Platelet Count 189 X10*3/uL (160-400); Red Blood Count 4.78 X10*6/uL (4.20-5.50); Red Cell Distribution Width 13.9 % (11.0-16.0); White Blood Count 5.1 X10*3/uL (4.8-10.8)
[2021-12-06 15:15] LABS: Lactic Acid 1.2 mmol/L (0.5-2.0)
[2021-12-06 15:17] LABS: Anion Gap 14 (12-20); Blood Urea Nitrogen 15 mg/dL (9-16); Calcium 9.2 mg/dL (8.4-10.2); Carbon Dioxide 23 mmol/L (22-29); Chloride 111 mmol/L (96-108); Creatinine Clr Calc Pharmacy 50.4; Estimated Glomerular Filt Rate 41; Glucose Random 119 mg/dL (60-115); Potassium 4.1 mmol/L (3.3-5.1); Sodium 144 mmol/L (135-145)
--- NOTE | 2021-12-06 19:55 | ED.GENADULT ---
HPI - General Adult General Chief complaint: General Medical Stated complaint: Insect bite/Swollen arm Time Seen by Provider: 12/06/21 19:39 Source: patient Mode of arrival: ambulatory Limitations: no limitations History of Present Illness HPI narrative: 56-year-old female with a history of asthma, hypertension, obstructive sleep apnea, anxiety, depression, high cholesterol, HIV presents with complaints of bite to the left upper arm which occurred on Monday. Patient tells me that she felt something bite her left arm. When she looked down she did not notice any insect. Since then she reports swelling, redness, itchiness and pain to the site. She tells me today she had a temperature of 99.2 degrees. No chills, body aches, vomiting, diarrhea or abdominal pain. No difficulty breathing, chest pain. Related Data Home Medications Medication Instructions Recorded Confirmed lorazepam 1 mg tablet 1 mg PO BEDTIME PRN 06/18/21 12/01/21 menthol 0.44 %-zinc oxide 20.6 % 1 appl topical QID PRN 07/31/21 12/01/21 topical ointment (Calmoseptine) levothyroxine 100 mcg tablet 100 mcg PO DAILY 10/07/21 12/01/21 citalopram 20 mg tablet 20 mg PO DAILY 12/01/21 12/01/21 Previous Rx's Medication Instructions Recorded cholecalciferol (vitamin D3) 50 50 mcg PO DAILY 90 days #90 caps 07/22/20 mcg (2,000 unit) capsule atorvastatin 80 mg tablet 80 mg PO DAILY 90 days #90 tabs 01/05/21 albuterol sulfate 90 mcg/actuation 2 puff inhalation Q6H PRN 01/21/21 aerosol inhaler shortness of breath or wheezing #6.7 grams aspirin 81 mg chewable tablet 81 mg PO DAILY 90 days #90 tabs 01/28/21 bictegravir 50 mg-emtricitabine 1 tab PO DAILY 90 days #90 tabs 07/12/21 200 mg-tenofovir alafenam 25 mg tablet (Biktarvy) ketoconazole 2 % topical cream 1 appl topical BID intertrigo #30 07/31/21 grams nifedipine 30 mg tablet,extended 30 mg PO DAILY #90 tabs 08/29/21 release alirocumab 75 mg/mL subcutaneous 75 mg subcut Q2W 90 days #7 mL 10/11/21 pen injector (Praluent Pen) spironolactone 50 mg tablet 50 mg PO BID 90 days #180 tabs 11/09/21 ezetimibe 10 mg tablet 10 mg PO DAILY 90 days #90 tabs 11/15/21 metoprolol succinate 100 mg 100 mg PO BID #180 tabs 11/15/21 tablet,extended release 24 hr doxycycline monohydrate 100 mg 100 mg PO BID #20 tabs 12/06/21 tablet Allergies Allergy/AdvReac Type Severity Reaction Status Date / Time amlodipine [AMLODIPINE] Allergy Unknown RASH Verified 12/01/21 14:11 cephalexin [From KEFLEX] Allergy Unknown RASH Verified 12/01/21 14:11 levofloxacin [From LEVAQUIN] Allergy Unknown RASH Verified 12/01/21 14:11 Pt states no food allergies Allergy Unknown Unknown Uncoded 12/01/21 14:11 Review of Systems Review of Systems: Yes all other systems are reviewed and are negative Constitutional: Constitutional: Reports no additional constitutional complaints, Denies body ache(s), Denies chills, Denies fever(s), Denies headache(s) and Denies weakness Eyes: Eyes: Reports no additional eye complaints and Denies change in vision ENT: Reports system reviewed and no additional complaints, except as documented, Denies dizziness, Denies headache(s), Denies nasal congestion, Denies nasal discharge and Denies neck pain Cardiovascular: Cardiovascular: Reports no additional cardiovascular complaints, Denies chest pain, Denies leg edema and Denies dyspnea Respiratory: Respiratory: Reports no additional respiratory complaints, Denies cough and Denies dyspnea Gastrointestinal: Gastrointestinal: Reports no additional gastrointestinal complaints, Denies abdominal pain, Denies diarrhea, Denies nausea and Denies vomiting Genitourinary: Genitourinary: Reports no additional female genitourinary complaints and Denies urinary incontinence Musculoskeletal: Musculoskeletal: Reports no additional musculoskeletal complaints, Denies back pain, Denies arthralgias, Denies joint swelling, Denies neck pain, Denies numbness and Denies tingling Integumentary/Breasts: Skin/Breast: Reports system reviewed and no additional complaints, except as docu, Reports erythema and Denies rash Neurologic: Reports system reviewed and no additional complaints, except as documented, Denies dizziness, Denies headache(s), Denies numbness, Denies tingling and Denies weakness PMFSH Past Medical History Attestation statement: The following information was validated with the patient. Source: old records reviewed and nursing notes reviewed Medical History Anxiety Atherosclerotic cardiovascular disease Cervical radiculitis Chronic kidney disease, stage 2 (mild) Dyslipidemia Essential hypertension GERD (gastroesophageal reflux disease) Graves disease Darian's disease History of paresthesia HIV (human immunodeficiency virus infection) HTN (hypertension) Iron (Fe) deficiency anemia Leukopenia LGSIL (low grade squamous intraepithelial dysplasia) Lumbar radiculopathy Morbid obesity Obstructive sleep apnea Osteoarthritis Other and unspecified hyperlipidemia Pernicious anemia Pituitary microadenoma Pituitary microadenoma Positive KALYANI (antinuclear antibody) Post-surgical hypothyroidism Raynaud's phenomenon SI (sacroiliac) pain Thyroid nodule Vitamin B12 deficiency Vitamin D deficiency Surgical History History of temporal artery biopsy History of thyroidectomy History of tonsillectomy History of tubal ligation Hx of colonoscopy Hx of esophagogastroduodenoscopy Family History Family History Father No problems noted. Mother Stroke Sister Diabetes mellitus Maternal Grandmother Unknown family medical history Brother Cancer Sister No problems noted. Brother No problems noted. Daughter Healthy female Social History Social History Housing: Apartment Alcohol intake: never Patient Tobacco Use Status: Never used Tobacco e-Cigarette/Vaping Use: Never Used Second Hand Smoke Exposure: No Advance Directives: No Advance Directives Information Provided: No Current occupational status: disabled Physical Exam ED Vital Signs: Vital Signs - 24 hr 12/06/21 14:30 12/06/21 20:06 Temperature 99.2 F 98.0 F Pulse Rate 84 60 Respiratory Rate 19 18 Blood Pressure 146/99 H 148/87 H Pulse Oximetry 99 98 Oxygen Delivery Method Room Air BMI result Body Mass Index 41.6 Const General: cooperative, healthy appearing, comfortable and no acute distress Orientation/consciousness: patient oriented x3 Limitations: no limitations HENMT Head: Yes normal to inspection Ears: hearing grossly normal bilaterally Eyes General: appearance normal, both eyes and all related structures Neck Neck: Yes normal visual inspection Chest Chest palpation & inspection: normal inspection of the chest Resp Effort & Inspection: normal respiratory effort Cardio Peripheral pulses: Peripheral pulses 2+ throughout Neuro General: patient oriented x3 and moves all extremities Cognition (Neuro): normal cognition Gait exam (Neuro): Normal gait present Extrem Other: To the inner and lateral aspect of the left upper arm there is redness, warmth and some slight swelling. It is not circumferential. The compartments are soft and compressible. Neurovascularly intact distally. Palpable radial and ulnar pulses. Course Course Course Narrative: Reviewed worrisome signs and symptoms with the patient such as circumferential redness, fever, spreading redness up the arm. Patient was recommended to take pictures on her phone she my monitor the site. Will start her on doxycycline. Reviewed worrisome signs and symptoms of when to return to the emergency department. Comfortable discharge home. Medical Decision Making MDM Narrative Medical decision making narrative: 56-year-old female who is here after presumed insect bite with some local redness, swelling, itching and pain. Patient overall nontoxic appearing she is afebrile. She had labs from triage which are unremarkable. On exam the patient has what appears to be local cellulitis of the left upper extremity with which is not circumferential. Patient can be started on oral antibiotics. Medical Records Medical records reviewed: Yes I reviewed the patient's medical records. Lab Data Lab results reviewed: Yes I reviewed the patient's lab results. Result diagrams: 12/06/21 14:52 12/06/21 14:52 Labs: Lab Results 12/06/21 12/06/21 12/06/21 Range/Units 14:52 14:52 14:52 WBC 5.1 (4.8-10.8) X10*3/uL RBC 4.78 (4.20-5.50) X10*6/uL Hgb 13.5 (12.0-16.0) g/dl Hct 41.4 (37.0-47.0) % MCV 86.6 (80.0-98.0) fL MCH 28.2 (27.0-33.0) pg MCHC 32.6 (31.0-35.0) g/dl RDW 13.9 (11.0-16.0) % Plt Count 189 (160-400) X10*3/uL MPV 11.0 (9.4-12.3) fL Immature Gran % (Auto) 0.2 (0.0-0.4) % Neut % (Auto) 53.0 (45-73) % Lymph % (Auto) 41.1 H (20-40) % [place] % (Auto) 5.3 (2-11) % Eos % (Auto) 0.4 (0-4) % Baso % (Auto) 0.0 (0-2) % Lymph # (Auto) 2.1 (1.2-4.9) X10*3/uL [place] # (Auto) 0.3 (0.1-1.2) X10*3/uL Eos # (Auto) 0.0 (0.0-0.4) X10*3/uL Baso # (Auto) 0.0 (0.0-0.2) X10*3/uL Abs Immat Gran (auto) 0.01 (0.00-0.03) X10*3/uL Absolute Neuts (auto) 2.7 (2.0-8.3) x10*3/uL Absolute Nucleated RBC 0.000 (0.0-0.012) X10*3/uL Nucleated RBC % (auto) 0.0 (0.0-0.2) /100WBC Sodium 144 (135-145) mmol/L Potassium 4.1 (3.3-5.1) mmol/L Chloride 111 H (96-108) mmol/L Carbon Dioxide 23 (22-29) mmol/L Anion Gap 14 (12-20) BUN 15 (9-16) mg/dL Creatinine 1.35 (0.5-1.4) mg/dL Estim Creat Clear Calc 50.4 Estimated GFR 41 Random Glucose 119 H (60-115) mg/dL Lactic Acid 1.2 (0.5-2.0) mmol/L Calcium 9.2 (8.4-10.2) mg/dL Discharge Plan Discharge Clinical Impression: Cellulitis, Insect bite Patient Disposition: Home, Self-Care Instructions: Cellulitis (ED), Warm Compress or Soak (ED) Additional Instructions: Return for 360 redness, difficulty extending or flexing the elbow, fever >100.4 Take benadryl for itching and swelling Prescriptions: New doxycycline monohydrate 100 mg tablet 100 mg PO BID Qty: 20 0RF No Action atorvastatin 80 mg tablet 80 mg PO DAILY 90 Days Qty: 90 3RF aspirin 81 mg tablet,chewable 81 mg PO DAILY 90 Days Qty: 90 3RF nifedipine 30 mg tablet extended release 30 mg PO DAILY Qty: 90 0RF Praluent Pen 75 mg/mL pen injector 75 mg subcut Q2W 90 Days Qty: 7 3RF spironolactone 50 mg tablet 50 mg PO BID 90 Days Qty: 180 0RF metoprolol succinate 100 mg tablet extended release 24 hr 100 mg PO BID Qty: 180 0RF ezetimibe 10 mg tablet 10 mg PO DAILY 90 Days Qty: 90 3RF menthol-zinc oxide [Calmoseptine] 0.44-20.6 % ointment 1 appl topical QID PRN ketoconazole 2 % cream 1 appl topical BID Qty: 30 0RF albuterol sulfate 90 mcg/actuation HFA aerosol inhaler 2 puff inhalation Q6H PRN (Reason: shortness of breath or wheezing) Qty: 6.7 0RF cholecalciferol (vitamin D3) 50 mcg (2,000 unit) capsule 50 mcg PO DAILY 90 Days Qty: 90 2RF Biktarvy 50-200-25 mg tablet 1 tab PO DAILY 90 Days Qty: 90 1RF lorazepam 1 mg tablet 1 mg PO BEDTIME PRN levothyroxine 100 mcg tablet 100 mcg PO DAILY citalopram 20 mg tablet 20 mg PO DAILY Referrals: Kenroy Freeman, [facility] [Primary Care Provider] - 5 days (for persistent symptoms ) Interventions: ED Discharge Assessment Last Done: 12/06/21 20:12 Discharge Date/Time: 12/06/21 20:14
[2021-12-06 20:06] VITALS: BP 148/87; PULSE 60; RESP 18; TEMP 36.7; O2SAT 98
== END 2021-12-06 20:14 | disposition home or self-care (01) ==
LOC: HO.ED 20:06
PROVIDERS: Emergency Provider Emergency Medicine; PCP Nurse Practitioner Family
DX: L03.114 Cellulitis of left upper limb (principal); S40.862A Insect bite (nonvenomous) of left upper arm, initial encounter; W57.XXXA Bitten or stung by nonvenomous insect and other nonvenomous arthropods, initial encounter; Y93.9 Activity, unspecified; Y92.9 Unspecified place or not applicable; Y99.9 Unspecified external cause status
CPT/HCPCS: 36415; 80048; 83605; 85025; 87040; 99282; 99283

== ENCOUNTER 2022-01-11 13:21 | Outpatient (REF) | payer OTHER, SELFPAY ==
[2022-01-11 13:54] LABS: MANUAL DIFF FLAG NO
[2022-01-11 14:18] LABS: Basophils Percent Auto 0.2 % (0-2); Eosinophils Percent Auto 0.6 % (0-4); Hematocrit 42.1 % (37.0-47.0); Hemoglobin 13.6 g/dl (12.0-16.0); Imm Gran Abs Auto 0.01 X10*3/uL (0.00-0.03); Imm Gran Pct Auto 0.2 % (0.0-0.4); Lymphocytes Absolute Auto 2.7 X10*3/uL (1.2-4.9); Lymphocytes Percent Auto 57.2 % (20-40); Mean Corpuscular HGB Conc 32.3 g/dl (31.0-35.0); Mean Corpuscular Hemoglobin 28.1 pg (27.0-33.0); Mean Platelet Volume 10.6 fL (9.4-12.3); Monocytes Absolute Auto 0.3 X10*3/uL (0.1-1.2); Monocytes Percent Auto 6.8 % (2-11); Neutrophils Absolute Auto 1.7 x10*3/uL (2.0-8.3); Platelet Count 242 X10*3/uL (160-400); Red Blood Count 4.84 X10*6/uL (4.20-5.50); Red Cell Distribution Width 13.9 % (11.0-16.0); White Blood Count 4.7 X10*3/uL (4.8-10.8)
[2022-01-11 14:43] LABS: Alanine Aminotransferase 21 U/L (0-31); Albumin Level 4.4 g/dL (3.5-5.0); Alkaline Phosphatase 144 U/L (39-117); Anion Gap 19 (12-20); Aspartate Amino Transferase 22 U/L (5-31); Bilirubin Total 0.5 mg/dL (0.0-1.0); Blood Urea Nitrogen 18 mg/dL (9-16); Calcium 9.4 mg/dL (8.4-10.2); Carbon Dioxide 19 mmol/L (22-29); Chloride 109 mmol/L (96-108); Cholesterol 92 mg/dL; Estimated Glomerular Filt Rate 49; Glucose Fasting 90 mg/dL (60-99); HDL Cholesterol 41 mg/dL; LDL Cholesterol Calculated 40 mg/dl; Potassium 4.3 mmol/L (3.3-5.1); Sodium 143 mmol/L (135-145); Total Protein 7.8 g/dL (6.5-8.0); Triglycerides 55 mg/dL
[2022-01-11 14:53] LABS: TSH reflex Free T4 0.09 uIU/mL (0.32-4.0)
[2022-01-11 15:16] LABS: Appearance Urine Clear; Color Urine Yellow; Glucose Urine UA Negative (Negative); Leukocyte Esterase Urine Negative (Negative); Nitrite Urine Negative (Negative); PH 5.5 (5.0-9.0); Specific Gravity - Urine 1.015 (1.005-1.025); Urine Blood Negative (Negative); Urine Ketones Negative (Negative); Urine Protein Negative (Neg-Trace)
[2022-01-11 15:35] LABS: Free T4 (Free Thyroxine) 1.33 ng/dL (0.71-1.85)
[2022-01-12 05:38] LABS: Syphilis Screen Nonreactive (Nonreactive)
[2022-01-12 12:36] LABS: Absolute CD3 Count 2126 cells/uL (840-3060); Absolute CD4 Count 1089 cells/uL (490-1740); Absolute CD8 Count 1062 cells/uL (180-1170); Absolute Lymphocytes 2648 cells/uL (850-3900); CD4 CD8 Ratio 1.03 (0.86-5.00); Percent CD3 Cells 80 % (57-85); Percent CD4 Cells 41 % (30-61); Percent CD8 Cells 40 % (12-42)
[2022-01-12 13:31] LABS: HIV RNA PCR Qn Copies NOT DETECTED copies/mL (NOT DETECTED); HIV RNA PCR Qn Log Copies NOT DETECTED (NOT DETECTED)
[2022-01-13 08:47] LABS: Lyme Abs Screen <0.90 index
== END 2022-01-11 13:22 | disposition home or self-care (01) ==
LOC: HO.LAB 13:21
PROVIDERS: PCP Nurse Practitioner Family; Visit Provider Internal Medicine
DX: B20 Human immunodeficiency virus [HIV] disease (principal); E66.01 Morbid (severe) obesity due to excess calories; E78.5 Hyperlipidemia, unspecified; T14.8XXA Other injury of unspecified body region, initial encounter; W57.XXXA Bitten or stung by nonvenomous insect and other nonvenomous arthropods, initial encounter
CPT/HCPCS: 36415; 80053; 80061; 81003; 84439; 84443; 85025; 86359; 86360; 86617; 86618; 86780; 87536

== ENCOUNTER → 2022-01-26 11:24 | Outpatient (BNVA) | payer OTHER, SELFPAY | PROVIDERS: PCP Nurse Practitioner Family; Visit Provider Internal Medicine | DX: B20 Human immunodeficiency virus [HIV] disease (principal) | CPT/HCPCS: 99212 ==

== ENCOUNTER 2022-01-28 14:20 | Outpatient (REF) | payer OTHER, SELFPAY ==
--- NOTE | ~2022-01-28 | MM_ITS ---
EXAMINATION: MM SCREENING DIGITAL BREAST TOMOSYNTHESIS, BILATERAL CLINICAL INFORMATION: Screening. Asymptomatic. The lifetime risk of breast cancer based on the Tyrer-Cuzick Model is 8%. COMPARISON: Mammography: 01/26/2021, 12/12/2019, 09/03/2018 TECHNIQUE: Digital breast tomosynthesis is performed in both the craniocaudal and mediolateral oblique views along with computer-aided detection (CAD). Synthesized 2D images are generated from the tomosynthesis. Additional right CC view is provided. FINDINGS: There are scattered areas of fibroglandular density (ACR BI-RADS breast composition Category b). The right breast shows no significant change from prior studies. Again, there is a dermal lesion overlying the mid inframammary fold. Neither breast shows abnormal calcifications. The axilla and skin contours are unremarkable. Left breast has subtle oval focal asymmetric density posterior 3:00 position with ill-defined margins. Shape may suggest an intramammary node. Attenuation is less than parenchyma. Patient will be recalled for additional evaluation. MM/MM tomosynthesis screening BI IMPRESSION: Left: -Subtle focal asymmetric density posterior 3:00 position, possibly intramammary node. Right: -No mammographic evidence of malignancy. ASSESSMENT: BI-RADS 0: Incomplete - Need Additional Imaging Evaluation RECOMMENDATION: 1. Additional views of the left breast (spot exaggerated CC, spot MLO). 2. Targeted ultrasound if warranted after review of the additional views. 3. Radiology department staff will contact the patient for additional imaging. This patient's information was entered into a reminder system with a target due date for their next mammogram.
== END 2022-01-28 14:21 | disposition home or self-care (01) ==
LOC: HO.MAMMO 14:20
PROVIDERS: PCP Nurse Practitioner Family; Visit Provider Nurse Practitioner Family
DX: Z12.31 Encounter for screening mammogram for malignant neoplasm of breast (principal)
CPT/HCPCS: 77063; 77067

== ENCOUNTER 2022-02-02 09:29 | Outpatient (REF) | payer OTHER, SELFPAY ==
--- NOTE | ~2022-02-02 | US_ITS ---
EXAMINATION: MM DIAGNOSTIC DIGITAL BREAST TOMOSYNTHESIS, LEFT US DIAGNOSTIC ULTRASOUND BREAST, LEFT CLINICAL INFORMATION: Recall from screening for subtle oval focal asymmetric density posterior 3:00 position, possibly intramammary node. COMPARISON: Mammography: 01/28/2022, 01/26/2021, 12/12/2019, 09/03/2018 TECHNIQUE: Digital breast tomosynthesis is performed. 2D images are generated from the tomosynthesis. The following views are obtained: Spot CC, spot MLO. Ultrasound left breast is targeted to the outer breast using grayscale imaging and color Doppler without and with harmonics. FINDINGS: There are scattered areas of fibroglandular density (ACR BI-RADS breast composition Category b). The additional views show that the oval asymmetric density has smooth margins possibly with a hilar notch suggesting an intramammary node. In retrospect, finding is faintly suggested on mammography in 2020 and 2019. Ultrasound demonstrates an incidental intramammary node 2:30 outer breast 10 cm from nipple of similar size and shape to finding on mammography measuring approximately 0.6 x 1.1 cm. There is normal marcelle architecture and color flow. Results are discussed with the patient at time of visit. US/US breast LT limited IMPRESSION: Incidental intramammary node outer left breast corresponding to finding on recent mammography. ASSESSMENT: BI-RADS 2: Benign RECOMMENDATION: Routine annual mammography screening. This patient's information was entered into a reminder system with a target due date for their next mammogram.
== END 2022-02-02 09:30 | disposition home or self-care (01) ==
LOC: HO.MAMMO 09:29
PROVIDERS: PCP Nurse Practitioner Family; Visit Provider Nurse Practitioner Family
DX: R92.2 Inconclusive mammogram (principal)
CPT/HCPCS: 76642; 77065

== ENCOUNTER 2022-03-14 15:22 | Outpatient (REF) | payer OTHER, SELFPAY ==
[2022-03-17 04:59] LABS: HPV 16 RNA NOT DETECTED (NOT DETECTED); HPV mRNA E6/E7 rflx Detected (Not Detected)
== END 2022-03-14 15:23 | disposition home or self-care (01) ==
LOC: HO.LNP 15:22
PROVIDERS: Visit Provider Obstetrics & Gynecology
DX: Z01.419 Encounter for gynecological examination (general) (routine) without abnormal findings (principal); Z11.51 Encounter for screening for human papillomavirus (HPV)
CPT/HCPCS: 87624; 87625; 88142

== ENCOUNTER 2022-04-19 11:21 | Outpatient (REF) | payer OTHER, SELFPAY | END 2022-04-19 11:22 | disposition home or self-care (01) | LOC: HO.LNP 11:21 | PROVIDERS: PCP Nurse Practitioner Family; Visit Provider Obstetrics & Gynecology | DX: R87.810 Cervical high risk human papillomavirus (HPV) DNA test positive (principal) | CPT/HCPCS: 57454; 88305 ==

== ENCOUNTER 2022-05-03 11:25 | Outpatient (REF) | payer OTHER, SELFPAY ==
[2022-05-03 14:54] LABS: TSH reflex Free T4 1.33 uIU/mL (0.32-4.0)
== END 2022-05-03 11:26 | disposition home or self-care (01) ==
LOC: HO.LAB 11:25
PROVIDERS: PCP Nurse Practitioner Family; Visit Provider Obstetrics & Gynecology
DX: R79.89 Other specified abnormal findings of blood chemistry (principal); R87.810 Cervical high risk human papillomavirus (HPV) DNA test positive
CPT/HCPCS: 36415; 84443; 99212

== ENCOUNTER → 2022-05-25 10:06 | Outpatient (BNVA) | payer OTHER, SELFPAY | PROVIDERS: PCP Nurse Practitioner Family; Visit Provider Internal Medicine | DX: G47.33 Obstructive sleep apnea (adult) (pediatric) (principal); R06.2 Wheezing; E66.01 Morbid (severe) obesity due to excess calories | CPT/HCPCS: 99212 ==

== ENCOUNTER → 2022-05-26 10:34 | Outpatient (BNVA) | payer OTHER, SELFPAY | PROVIDERS: PCP Nurse Practitioner Family; Referring Provider Nurse Practitioner Family; Visit Provider Internal Medicine | DX: I25.10 Atherosclerotic heart disease of native coronary artery without angina pectoris (principal); I10 Essential (primary) hypertension; E78.5 Hyperlipidemia, unspecified; E66.01 Morbid (severe) obesity due to excess calories; G47.33 Obstructive sleep apnea (adult) (pediatric); Z68.41 Body mass index [BMI] 40.0-44.9, adult | CPT/HCPCS: 93005; 99212 ==

== ENCOUNTER → 2022-06-23 15:55 | Outpatient (REF) | payer OTHER, SELFPAY | LOC: HO.SL 15:55 | PROVIDERS: Visit Provider Internal Medicine | DX: G47.33 Obstructive sleep apnea (adult) (pediatric) (principal); E66.01 Morbid (severe) obesity due to excess calories | CPT/HCPCS: 95806 ==

== ENCOUNTER 2022-07-01 11:49 | Outpatient (REF) | payer OTHER, SELFPAY ==
[2022-07-01 13:45] LABS: Estimated Average Glucose 120 mg/dL; Hemoglobin A1c % 5.8 %
[2022-07-04 09:23] LABS: HIV RNA PCR Qn Copies <20 DETECTED copies/mL (NOT DETECTED); HIV RNA PCR Qn Log Copies <1.30 DETECTED (NOT DETECTED)
[2022-07-04 11:49] LABS: ~Hepatitis C Antibody Nonreactive (Nonreactive)
[2022-07-04 12:13] LABS: Syphilis Screen Nonreactive (Nonreactive)
[2022-07-04 15:19] LABS: Absolute CD3 Count 2058 cells/uL (840-3060); Absolute CD4 Count 1064 cells/uL (490-1740); Absolute CD8 Count 1056 cells/uL (180-1170); Absolute Lymphocytes 2535 cells/uL (850-3900); CD4 CD8 Ratio 1.01 (0.86-5.00); Percent CD3 Cells 81 % (57-85); Percent CD4 Cells 42 % (30-61); Percent CD8 Cells 42 % (12-42)
== END 2022-07-01 11:50 | disposition home or self-care (01) ==
LOC: HO.HMGCLDS 11:49
PROVIDERS: Internal Medicine; PCP Nurse Practitioner Family; Visit Provider Physician Assistant Medical
DX: B20 Human immunodeficiency virus [HIV] disease (principal); L66.8 Other cicatricial alopecia
CPT/HCPCS: 36415; 83036; 86359; 86360; 86780; 86803; 87536

== ENCOUNTER 2022-07-14 11:45 | Outpatient (REF) | payer OTHER, SELFPAY ==
[2022-07-14 13:57] LABS: MANUAL DIFF FLAG NO
[2022-07-14 14:02] LABS: Appearance Urine Clear; Color Urine Yellow; Glucose Urine UA Negative (Negative); Leukocyte Esterase Urine Negative (Negative); Nitrite Urine Negative (Negative); PH 5.5 (5.0-9.0); UMIC TRIGGER UACC YES; Urine Blood Small (1+) (Negative); Urine Ketones Negative (Negative); Urine Protein Negative (Neg-Trace)
[2022-07-14 14:09] LABS: Basophils Percent Auto 0.2 % (0-2); Eosinophils Absolute Auto 0.1 X10*3/uL (0.0-0.4); Eosinophils Percent Auto 1.7 % (0-4); Hematocrit 42.4 % (37.0-47.0); Hemoglobin 13.7 g/dl (12.0-16.0); Imm Gran Abs Auto 0.02 X10*3/uL (0.00-0.03); Imm Gran Pct Auto 0.4 % (0.0-0.4); Lymphocytes Absolute Auto 2.1 X10*3/uL (1.2-4.9); Lymphocytes Percent Auto 43.6 % (20-40); Mean Corpuscular HGB Conc 32.3 g/dl (31.0-35.0); Mean Corpuscular Hemoglobin 27.9 pg (27.0-33.0); Mean Corpuscular Volume 86.4 fL (80.0-98.0); Mean Platelet Volume 11.2 fL (9.4-12.3); Monocytes Absolute Auto 0.3 X10*3/uL (0.1-1.2); Monocytes Percent Auto 6.3 % (2-11); Neutrophils Absolute Auto 2.3 x10*3/uL (2.0-8.3); Neutrophils Percent Auto 47.8 % (45-73); Platelet Count 240 X10*3/uL (160-400); Red Blood Count 4.91 X10*6/uL (4.20-5.50); White Blood Count 4.8 X10*3/uL (4.8-10.8)
[2022-07-14 14:17] LABS: Bacteria Urine None Seen (None Seen); Hyaline Casts Urine 0-2 /LPF (0-2); RBC Urine 0-2 /HPF (0-2); Squamous Epithelial Cell Urine 0-2 /HPF (0-2); WBC Urine 0-5 /HPF (0-5)
[2022-07-14 14:42] LABS: Alanine Aminotransferase 23 U/L (0-31); Albumin Level 4.3 g/dL (3.5-5.0); Alkaline Phosphatase 155 U/L (39-117); Anion Gap 13 (12-20); Aspartate Amino Transferase 23 U/L (5-31); Bilirubin Total 0.8 mg/dL (0.0-1.0); Blood Urea Nitrogen 12 mg/dL (9-16); Calcium 9.1 mg/dL (8.4-10.2); Carbon Dioxide 25 mmol/L (22-29); Chloride 109 mmol/L (96-108); Cholesterol 135 mg/dL; Estimated Glomerular Filt Rate 46; Glucose Fasting 108 mg/dL (60-99); HDL Cholesterol 44 mg/dL; LDL Cholesterol Calculated 74 mg/dl; Potassium 3.8 mmol/L (3.3-5.1); Sodium 143 mmol/L (135-145); Total Protein 7.4 g/dL (6.5-8.0); Triglycerides 87 mg/dL
[2022-07-14 14:43] LABS: TSH reflex Free T4 1.87 uIU/mL (0.32-4.0)
== END 2022-07-14 11:46 | disposition home or self-care (01) ==
LOC: HO.HMGCLDS 11:45
PROVIDERS: PCP Nurse Practitioner Family; Visit Provider Nurse Practitioner Family
DX: Z00.00 Encounter for general adult medical examination without abnormal findings (principal)
CPT/HCPCS: 36415; 80053; 80061; 81001; 81003; 84443; 85025

== ENCOUNTER → 2022-07-25 11:00 | Outpatient (BNVA) | payer OTHER, SELFPAY | PROVIDERS: PCP Nurse Practitioner Family; Visit Provider Internal Medicine | DX: G47.33 Obstructive sleep apnea (adult) (pediatric) (principal); R06.2 Wheezing; E66.01 Morbid (severe) obesity due to excess calories; Z68.42 Body mass index [BMI] 45.0-49.9, adult | CPT/HCPCS: 99212 ==

== ENCOUNTER → 2022-07-27 11:41 | Outpatient (BNVA) | payer OTHER, SELFPAY | PROVIDERS: PCP Nurse Practitioner Family; Visit Provider Internal Medicine | DX: B20 Human immunodeficiency virus [HIV] disease (principal) | CPT/HCPCS: 99212 ==

== ENCOUNTER 2022-08-03 10:35 | Outpatient (REF) | payer OTHER, SELFPAY ==
[2022-08-03 11:33] LABS: Appearance Urine Clear; Color Urine Yellow; Glucose Urine UA Negative (Negative); Leukocyte Esterase Urine Negative (Negative); Nitrite Urine Negative (Negative); PH 5.5 (5.0-9.0); UMIC TRIGGER UACC YES; Urine Blood Small (1+) (Negative); Urine Ketones Negative (Negative); Urine Protein Negative (Neg-Trace)
[2022-08-03 11:53] LABS: Bacteria Urine None Seen (None Seen); Hyaline Casts Urine 0-2 /LPF (0-2); RBC Urine 0-2 /HPF (0-2); Squamous Epithelial Cell Urine 0-2 /HPF (0-2); WBC Urine 0-5 /HPF (0-5)
[2022-08-10 14:03] LABS: Alk.Phos Iso. Macrohepatic 0 % (<=0); Alk.Phos Isoenzymes Bone 18 % (28-66); Alk.Phos Isoenzymes Intest 5 % (1-24); Alk.Phos Isoenzymes Liver 77 % (25-69); Alk.Phos Isoenzymes Placental 0 % (<=0); Alk.Phos Isoenzymes Total 126 U/L (37-153)
== END 2022-08-03 10:36 | disposition home or self-care (01) ==
LOC: HO.HMGCLDS 10:35
PROVIDERS: PCP Nurse Practitioner Family; Visit Provider Nurse Practitioner Family
DX: R74.8 Abnormal levels of other serum enzymes (principal)
CPT/HCPCS: 36415; 81001; 84080

== ENCOUNTER 2022-09-01 09:40 | Outpatient (REF) | payer OTHER, SELFPAY ==
--- NOTE | ~2022-09-01 | US_ITS ---
EXAMINATION: US ABDOMEN LIMITED CLINICAL INFORMATION: Abnormal serum enzymes. COMPARISON: CT abdomen and pelvis 02/27/2021. Ultrasound abdomen complete 07/12/2016 and 05/28/2015. TECHNIQUE: Real-time imaging of the right upper quadrant abdominal viscera. FINDINGS: PANCREAS: Visualized portions of the pancreas are unremarkable. The pancreatic tail is obscured by bowel gas. LIVER: Normal. The liver is normal in size. The liver contour is normal. Parenchymal echogenicity is normal. No focal hepatic lesion. There is no intrahepatic biliary duct dilatation seen. GALLBLADDER: Normal. The gallbladder is physiologically distended without evidence of stones, sludge, polyps, wall thickening or pericholecystic fluid. COMMON BILE DUCT: Normal in caliber measuring 0.4 cm in diameter. RIGHT KIDNEY: Right renal pelviectasis. Question of slightly echogenic renal pyramids, consider correlation with risk factors for medullary sponge kidney. No hydronephrosis. No renal calculi or focal parenchymal lesions. The kidney measures 10.0 cm in maximum dimension. FREE FLUID: None. US/US abdomen limited IMPRESSION: Right renal pelviectasis without teresita hydronephrosis. Question of possibly slightly echogenic renal pyramids, consider correlation with risk factors for medullary sponge kidney.
== END 2022-09-01 09:41 | disposition home or self-care (01) ==
LOC: HO.US 09:40
PROVIDERS: PCP Nurse Practitioner Family; Visit Provider Nurse Practitioner Family
DX: R74.8 Abnormal levels of other serum enzymes (principal)
CPT/HCPCS: 76705

== ENCOUNTER → 2022-10-05 09:59 | Outpatient (BNVA) | payer OTHER, SELFPAY | PROVIDERS: PCP Nurse Practitioner Family; Visit Provider Internal Medicine Endocrinology, Diabetes & Metabolism | DX: E05.00 Thyrotoxicosis with diffuse goiter without thyrotoxic crisis or storm (principal); D35.2 Benign neoplasm of pituitary gland | CPT/HCPCS: 99212 ==

== ENCOUNTER 2022-12-20 10:10 | Outpatient (REF) | payer OTHER, SELFPAY ==
[2022-12-20 13:50] LABS: Appearance Urine Clear; Color Urine Yellow; Glucose Urine UA Negative (Negative); Leukocyte Esterase Urine Small (1+) (Negative); Nitrite Urine Negative (Negative); PH 5.5 (5.0-9.0); Specific Gravity - Urine 1.015 (1.005-1.025); UMIC TRIGGER UACC YES; Urine Blood Trace (Negative); Urine Ketones Negative (Negative); Urine Protein Negative (Neg-Trace)
[2022-12-20 14:06] LABS: Bacteria Urine None Seen (None Seen); Hyaline Casts Urine 0-2 /LPF (0-2); RBC Urine 0-2 /HPF (0-2); Squamous Epithelial Cell Urine 0-2 /HPF (0-2); UACC Culture Trigger YES; WBC Urine 0-5 /HPF (0-5)
[2022-12-21 15:34] LABS: HIV RNA PCR Qn Copies NOT DETECTED copies/mL (NOT DETECTED); HIV RNA PCR Qn Log Copies NOT DETECTED (NOT DETECTED)
[2022-12-22 11:43] LABS: Absolute CD3 Count 2177 cells/uL (840-3060); Absolute CD4 Count 1089 cells/uL (490-1740); Absolute CD8 Count 1139 cells/uL (180-1170); Absolute Lymphocytes 2737 cells/uL (850-3900); CD4 CD8 Ratio 0.96 (0.86-5.00); Percent CD3 Cells 80 % (57-85); Percent CD4 Cells 40 % (30-61); Percent CD8 Cells 42 % (12-42)
== END 2022-12-20 10:11 | disposition home or self-care (01) ==
LOC: HO.HMGCLDS 10:10
PROVIDERS: Internal Medicine; PCP Nurse Practitioner Family; Visit Provider Internal Medicine
DX: B20 Human immunodeficiency virus [HIV] disease (principal); R82.90 Unspecified abnormal findings in urine
CPT/HCPCS: 36415; 81001; 86359; 86360; 87086; 87536

== ENCOUNTER 2022-12-21 09:10 | Outpatient (REF) | payer OTHER, SELFPAY | END 2022-12-21 09:11 | disposition home or self-care (01) | LOC: HO.LAB 09:10 | PROVIDERS: PCP Nurse Practitioner Family; Visit Provider Advanced Practice Midwife | DX: B37.31 Acute candidiasis of vulva and vagina (principal) | CPT/HCPCS: 99212 ==

== ENCOUNTER 2022-12-21 09:10 | Outpatient (AMB) | payer OTHER, SELFPAY ==
[2022-12-21 09:11] VITALS: BP 110/68; BMI 45.7
--- NOTE | 2022-12-21 09:11 | A.OFFVIS_ITS ---
Intake Vital Signs 12/21/22 09:11 Height 5 ft 1 in Weight 242 lb BMI 45.7 BP 110/68 Intake Visit Reasons: ? Vaginal infection Intake Note: pt c/o vaginal irritation, milky discharge and swelling 11/28 lgsil 12/29 colpo nidhi 1 6 lgsil +hpv 12/15 lgsil +hpv 12/16 lgsil +hpv 2/17 colpo nidhi 1 18 ascus +hpv 3 colpo nidhi 1 08/03 lgsil +hpv 09/02 colpo 03/06 colpo 12/05 lgsil +hpv 01/05 colpo cin1 02/04 Leep nidhi 1-2-3 03/07 Leep 03/14/22 neg +hpv 04/19/22 colpo Process Specialist: Process Specialist Present (Maggie) Allergies amlodipine [AMLODIPINE] Allergy (Unknown, Verified 10/05/22 10:05) RASH cephalexin [From KEFLEX] Allergy (Unknown, Verified 10/05/22 10:05) RASH levofloxacin [From LEVAQUIN] Allergy (Unknown, Verified 10/05/22 10:05) RASH Pt states no food allergies Allergy (Unknown, Uncoded 10/05/22 10:05) Unknown Medication List - Last Reconciled 12/21/22 by Nydia Mckeon CNM albuterol sulfate 90 mcg/actuation (Ventolin HFA) 1 inh inhalation QID PRN albuterol sulfate 90 mcg/actuation 2 puffs inhalation Q6H PRN alirocumab (Praluent Pen) 75 mg subcut Q2W 90 days aspirin 81 mg PO DAILY 90 days atorvastatin 80 mg PO DAILY [id number] [id number] 50-200-25 mg (Biktarvy) 1 tab PO DAILY 90 days citalopram 20 mg PO DAILY PRN cyclobenzaprine 10 mg PO BEDTIME ezetimibe 10 mg PO DAILY levothyroxine 88 mcg PO DAILY lorazepam 1 mg PO BEDTIME PRN metoprolol succinate ER 100 mg PO BID nifedipine ER 30 mg PO DAILY spironolactone 50 mg PO BID 90 days Post menopausal: Yes HPI ? Vaginal infection HPI Details Patient is here because she has had some vaginal irritation for few days she thought it might be UTI and went to urgent care and they told her it was not and to come here. She is not diabetic she described irritation is a little bit Burny a little vaginal swelling a little bit of itching little bit of thin white discharge and it there was an odor the other day but not today it is actually a little bit better now. [facility] Medical History Anxiety Atherosclerotic cardiovascular disease Cervical radiculitis Chronic kidney disease, stage 2 (mild) NIDHI III (cervical intraepithelial neoplasia grade III) with severe dysplasia Dyslipidemia Essential hypertension GERD (gastroesophageal reflux disease) Graves disease Darian's disease History of paresthesia HIV (human immunodeficiency virus infection) HTN (hypertension) Iron (Fe) deficiency anemia Leukopenia LGSIL (low grade squamous intraepithelial dysplasia) Lumbar radiculopathy Morbid obesity Obstructive sleep apnea Osteoarthritis Other and unspecified hyperlipidemia Pernicious anemia Pituitary microadenoma Pituitary microadenoma Positive KALYANI (antinuclear antibody) Post-surgical hypothyroidism Raynaud's phenomenon SI (sacroiliac) pain Thyroid nodule Vitamin B12 deficiency Vitamin D deficiency Surgical History History of temporal artery biopsy History of thyroidectomy History of tonsillectomy History of tubal ligation Hx of colonoscopy Hx of esophagogastroduodenoscopy Family History Father No problems noted. Mother Stroke Sister Diabetes mellitus Maternal Grandmother Unknown family medical history Brother Cancer Sister No problems noted. Brother No problems noted. Daughter Healthy female Social History Housing: Apartment Alcohol intake: current Alcohol intake frequency: holidays/special occasions only Patient Tobacco Use Status: Never used Tobacco e-Cigarette/Vaping Use: Never Used Second Hand Smoke Exposure: No Current occupational status: disabled Cognitive needs: No Hearing needs: No Vision needs: No Female Reproductive History Menstrual Age of Menarche: 13 control method: permanent sterilization Permanent Sterilization: BTL Menopause type: natural Total pregnancies: 3 Full term: 1 Number of Living Children: 1 Date of last pap smear: 03/14/22 (neg pap +HPV) History of abnormal pap smear: Yes (02/04 Leep NIDHI 1-2-3 see intake note) Physical Exam Vital Signs: Last Vital Signs BP 110/68 12/21/22 09:11 BMI result Body Mass Index 45.7 External Female Exam: normal external appearance (vulva swollen and enflamed, surface appears dry, disch c/w yeast ), erythema and external swelling Speculum Exam - Vagina: normal appearance of the vagina and normal vaginal discharge (c/w yeast) Speculum Exam - Cervix: normal appearance of the cervix Assessment & Plan Assessment & Plan (1) Yeast infection involving the vagina and surrounding area: Code(s): B37.31 - Acute candidiasis of vulva and vagina Plan ---I reviewed her symptoms we reviewed what she may have done alleviate symptoms. I reviewed contributing factors to yeast infection including clothing that may be a little tight or does not permit air to pass to the vulva well, including non cotton underwear, nylon and polyester type workout clothes and yoga pants, use of panty liners pads for periods etc. My recommendations include use of the medication that we decided upon, allowing air to her vulva as much as possible including wearing cotton underwear and possibly no underwear at night when possible. Any other contributing factors were explored. I encouraged her not to scratch. I reviewed what to do when she feels symptoms first starting, (re-double her efforts at allowing air to the area.) She tends to sleep without underwear already. Discussed possible relationship to antibiotics she recently finished a course of doxy Cyclen which was used to help treat her alopecia but also scalp irritation and redness and itching, though doxy Cyclen does not often result in yeast infections I am prescribing miconazole cream specifically miconazole 7 though she may use it for just a couple of nights past its need and not necessarily for the full 7 days if she does not need it and I am giving her refills. It appears as if it is not covered by her insurance so I am also sending a prescription for tercon azole 7. I told her to preferentially use the miconazole if she it is affordable to her but it the terconazole 7 will be there in case the miconazole is too expensive. Medications: New miconazole nitrate 2% (Miconazole-7) 1 appful vaginal BEDTIME 7 days 45 grams 3RF terconazole 0.4% being ordered in case the miconazole rx is not covered, as a back up option 1 appful vaginal BEDTIME 7 days 45 grams 3RF Coding Level of Care Code Est Pt Level 3 (11750) Diagnoses Yeast infection involving the vagina and surrounding area B37.31
== END 2022-12-21 09:48 | disposition home or self-care (01) ==
PROVIDERS: PCP Nurse Practitioner Family; Visit Provider Advanced Practice Midwife
DX: B37.31 Acute candidiasis of vulva and vagina (principal)
CPT/HCPCS: 99213

== ENCOUNTER 2022-12-21 09:48 | Outpatient (REF) | payer OTHER, SELFPAY ==
[2022-12-21 18:01] LABS: CT PCR NOT DETECTED (Not Detect.); NG PCR NOT DETECTED (Not Detect.)
[2022-12-22 12:08] LABS: BV Int Neg Control Negative (Negative); BV Int Pos Control Positive (Positive)
== END 2022-12-21 09:49 | disposition home or self-care (01) ==
LOC: HO.LNP 09:48
PROVIDERS: Visit Provider Advanced Practice Midwife
DX: N89.8 Other specified noninflammatory disorders of vagina (principal)
CPT/HCPCS: 0353U; 87480; 87510; 87660

== ENCOUNTER 2023-01-09 10:02 | Outpatient (AMB) | payer OTHER, SELFPAY ==
--- NOTE | 2023-01-09 10:04 | A.OFFPC_ITS ---
Vital Signs 01/09/23 10:06 Height 5 ft 1 in Weight 235 lb BMI 44.4 BP 114/74 Blood Pressure Location Rt brachial Position Sitting Pulse 60 Pulse Source Pulse Oximeter Pulse Oximetry (%) 98 Oxygen Delivery Method Room Air Intake Visit Reasons: 6m htn Allergies amlodipine [AMLODIPINE] Allergy (Unknown, Verified 01/09/23 10:06) RASH cephalexin [From KEFLEX] Allergy (Unknown, Verified 01/09/23 10:06) RASH levofloxacin [From LEVAQUIN] Allergy (Unknown, Verified 01/09/23 10:06) RASH Pt states no food allergies Allergy (Unknown, Uncoded 01/09/23 10:06) Unknown Medication List - Last Reconciled 01/09/23 by Kenroy Freeman, CHURN DRILLER HELPER- albuterol sulfate 90 mcg/actuation (Ventolin HFA) 1 inh inhalation QID PRN albuterol sulfate 90 mcg/actuation 2 puffs inhalation Q6H PRN alirocumab (Praluent Pen) 75 mg subcut Q2W 90 days aspirin 81 mg PO DAILY 90 days atorvastatin 80 mg PO DAILY flreqyyok-jtojdpky-iypryrb ala 50-200-25 mg (Biktarvy) 1 tab PO DAILY 90 days citalopram 20 mg PO DAILY PRN cyclobenzaprine 10 mg PO BEDTIME ezetimibe 10 mg PO DAILY levothyroxine 88 mcg PO DAILY lorazepam 1 mg PO BEDTIME PRN metoprolol succinate ER 100 mg PO BID miconazole nitrate 2% (Miconazole-7) 1 appful vaginal BEDTIME 7 days nifedipine ER 30 mg PO DAILY spironolactone 50 mg PO BID 90 days terconazole 0.4% 1 appful vaginal BEDTIME 7 days Tobacco use date assessed: 07/14/22 Dental Screening Dental Screen Date: 01/09/23 Did you have a dental visit in the last 12 months?: Yes Did you have a dental problem in the last 6 months where you did not have access to dental care?: No Was dental information given to patient?: Patient has dentist HPI 6m htn HPI Details HTN: Blood pressure is stable, managed with metoprolol 100mg bid, nifedipine 30mg, and spironolactone 50mg bid. Denies chest pain, shortness of breath, headache, dizziness, and blurred vision. [facility] Medical History Anxiety Atherosclerotic cardiovascular disease Cervical radiculitis Chronic kidney disease, stage 2 (mild) NIDHI III (cervical intraepithelial neoplasia grade III) with severe dysplasia Dyslipidemia Essential hypertension GERD (gastroesophageal reflux disease) Graves disease Darian's disease History of paresthesia HIV (human immunodeficiency virus infection) HTN (hypertension) Iron (Fe) deficiency anemia Leukopenia LGSIL (low grade squamous intraepithelial dysplasia) Lumbar radiculopathy Morbid obesity Obstructive sleep apnea Osteoarthritis Other and unspecified hyperlipidemia Pernicious anemia Pituitary microadenoma Pituitary microadenoma Positive KALYANI (antinuclear antibody) Post-surgical hypothyroidism Raynaud's phenomenon SI (sacroiliac) pain Thyroid nodule Vitamin B12 deficiency Vitamin D deficiency Surgical History History of temporal artery biopsy History of thyroidectomy History of tonsillectomy History of tubal ligation Hx of colonoscopy Hx of esophagogastroduodenoscopy Family History Father No problems noted. Mother Stroke Sister Diabetes mellitus Maternal Grandmother Unknown family medical history Brother Cancer Sister No problems noted. Brother No problems noted. Daughter Healthy female Social History Housing: Apartment Alcohol intake: current Alcohol intake frequency: holidays/special occasions only Patient Tobacco Use Status: Never used Tobacco e-Cigarette/Vaping Use: Never Used Second Hand Smoke Exposure: No Current occupational status: disabled Cognitive needs: No Hearing needs: No Vision needs: No Female Reproductive History Menstrual Age of Menarche: 13 Questionnaire Thrive Questionnaire Date Thrive assessed: 07/14/22 BRITTNEY-7 AMB Questionnaire BRITTNEY-7 Date BRITTNEY - 7 assessed: 07/14/22 Source: Developed by Drs. Bud Mosquera, Glory Bullock, Osmar Chamberlain and colleagues, with an educational renetta from [employer]. Review of Systems Const Reports as per HPI Physical exam (Primary Care) Vital Signs: Last Vital Signs Pulse 60 01/09/23 10:06 BP 114/74 01/09/23 10:06 Pulse Ox 98 01/09/23 10:06 Oxygen Delivery Method Room Air 01/09/23 10:06 BMI result Body Mass Index 44.4 Tobacco/Smoking Status: Tobacco use Status Tobacco use date assessed 07/14/22 01/09/23 10:09 Patient Tobacco Use Status Never used Tobacco 01/09/23 10:09 e-Cigarette/Vaping Use Never Used 01/09/23 10:09 Thrive Assessment: Date of Thrive Assessment Date Thrive assessed 07/14/22 01/09/23 10:09 Const General: cooperative Nutritional Appearance: obese morbidly obese Orientation/consciousness: patient oriented x3 Resp Effort & Inspection: normal respiratory effort Auscultation: clear to auscultation bilaterally Cardio Rate: regular rate Rhythm: regular rhythm Heart sounds: S1 normal heart sound present and S2 normal heart sound present Neuro General: patient oriented x3 Extrem Right lower extremity: edema (trace) Left lower extremity: edema (trace) Psych Appearance: grossly normal Mental Status: mental status grossly normal Speech and movement: Normal speech and movement present Affect: normal affect Attitude: cooperative Thought process: Normal thought process present Thought content: Normal thought content present Insight: Good insight present (Psych) Judgement: Good judgement present (Psych) Assessment and Plan Assessment & Plan (1) Essential hypertension: Code(s): I10 - Essential (primary) hypertension Plan: Labs ordered Plan The patient agreed to the use of a medical imaging tech for this encounter. Scribed for NASH Coombs by Monet Rahman medical imaging tech, on 01/09/2023 at 10:15 EST. Orders: Orders Comprehensive Ralls. Panel Fast Today I10 - Essential (primary) hypertension TSH reflex Free T4 Today I10 - Essential (primary) hypertension UA CC w/rflx Micro + Cult Today I10 - Essential (primary) hypertension Complete Blood Count Auto Diff Today I10 - Essential (primary) hypertension Lipid Panel Today I10 - Essential (primary) hypertension Coding Level of Care Code Est Pt Level 3 (98751) Diagnoses Essential hypertension I10
[2023-01-09 10:06] VITALS: BP 114/74; PULSE 60; O2SAT 98; BMI 44.4
== END 2023-01-09 12:05 | disposition home or self-care (01) ==
PROVIDERS: Visit Provider Nurse Practitioner Family
DX: I10 Essential (primary) hypertension (principal)
CPT/HCPCS: 99213

== ENCOUNTER 2023-01-18 10:58 | Outpatient (AMB) | payer OTHER, SELFPAY ==
[2023-01-18 11:13] VITALS: BP 131/79; PULSE 66; O2SAT 98; BMI 45.0
--- NOTE | 2023-01-18 11:13 | MHC.OFFVIS ---
Intake Vital Signs 01/18/23 11:13 Height 5 ft 1 in Weight 238 lb BMI 45.0 BP 131/79 Blood Pressure Location Rt brachial Position Sitting Pulse 66 Pulse Source Pulse Oximeter Pulse Oximetry (%) 98 Intake Visit Reasons: 6 mth. HIV, F/U Allergies amlodipine [AMLODIPINE] Allergy (Unknown, Verified 01/09/23 10:06) RASH cephalexin [From KEFLEX] Allergy (Unknown, Verified 01/09/23 10:06) RASH levofloxacin [From LEVAQUIN] Allergy (Unknown, Verified 01/09/23 10:06) RASH Pt states no food allergies Allergy (Unknown, Uncoded 01/09/23 10:06) Unknown HPI 6 mth. HIV, F/U HPI Details She is doing well. On 12/21 CD4 count is 1089 and viral load undetectable. She has no concerns. She is UTD on health maintenance. [facility] Medical History NIDHI III (cervical intraepithelial neoplasia grade III) with severe dysplasia Anxiety Chronic kidney disease, stage 2 (mild) Morbid obesity Other and unspecified hyperlipidemia Essential hypertension Atherosclerotic cardiovascular disease Pituitary microadenoma Vitamin D deficiency Graves disease Post-surgical hypothyroidism Osteoarthritis GERD (gastroesophageal reflux disease) Leukopenia Cervical radiculitis Lumbar radiculopathy Pernicious anemia Obstructive sleep apnea Raynaud's phenomenon Pituitary microadenoma 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 Mother Stroke Sister Diabetes mellitus Maternal Grandmother Unknown family medical history Brother Cancer Sister No problems noted. Brother No problems noted. Daughter Healthy female Social History Housing: Apartment Alcohol intake: current Alcohol intake frequency: holidays/special occasions only Patient Tobacco Use Status: Never used Tobacco e-Cigarette/Vaping Use: Never Used Second Hand Smoke Exposure: No Current occupational status: disabled Cognitive needs: No Hearing needs: No Vision needs: No Female Reproductive History Menstrual Age of Menarche: 13 Review of Systems Const All systems reviewed & are unremarkable except as noted in HPI and below Physical Exam Vital Signs: Last Vital Signs Pulse 66 01/18/23 11:13 BP 131/79 01/18/23 11:13 Pulse Ox 98 01/18/23 11:13 BMI result Body Mass Index 45.0 Const General: cooperative Orientation/consciousness: patient oriented x3 HEENT Head: Yes normal to inspection Mouth: Normal oral and palatal mucosa present Eyes General: appearance normal, both eyes and all related structures Pupils: Equal, round and reactive pupils present Resp Effort & Inspection: normal respiratory effort Cardio Rate: regular rate Rhythm: regular rhythm GI Palpation (GI): Soft to palpation and nontender General: Yes no CVA tenderness Back/Spine/Pelvis Back: no CVA tenderness Skin General skin exam: no rashes or lesions noted Neuro General: patient oriented x3 Cranial nerves: Yes CN's II-XII intact bilaterally and Yes Equal, round and reactive pupils present Extrem General: Yes normal to inspection Psych Appearance: grossly normal Assessment & Plan Assessment & Plan (1) HIV (human immunodeficiency virus infection): Comment: She is doing well Her blood pressure is under control and she has been taking Biktarvy regularly She is undetectable and has CD4 count 1089 and viral load undetectable on 12/21/2022. Code(s): B20 - Human immunodeficiency virus [HIV] disease Plan: Continue Biktarvy. It is renewed for six months and labs ordered for six months. See in six months. Flu and COVID shots recommended. Orders: Orders Liver Panel 5 Months B20 - Human immunodeficiency virus [HIV] disease HIV-1 RNA QN PCR Expanded 5 Months B20 - Human immunodeficiency virus [HIV] disease Lymphocyte Subset Panel 3 5 Months B20 - Human immunodeficiency virus [HIV] disease Syphilis Screen 5 Months B20 - Human immunodeficiency virus [HIV] disease Complete Blood Count Auto Diff 5 Months B20 - Human immunodeficiency virus [HIV] disease Basic Metabolic Panel 5 Months B20 - Human immunodeficiency virus [HIV] disease Medications: Refilled nzgbnwlny-jvexxdag-mhyoswo ala 50-200-25 mg (Biktarvy) 1 tab PO DAILY 90 days 90 tabs 1RF Coding Level of Care Code Est Pt Level 3 (77169) Diagnoses HIV (human immunodeficiency virus infection) B20
== END 2023-01-18 15:37 ==
PROVIDERS: PCP Nurse Practitioner Family; Visit Provider Internal Medicine
DX: B20 Human immunodeficiency virus [HIV] disease (principal)
CPT/HCPCS: 99213

== ENCOUNTER → 2023-01-18 10:58 | Outpatient (BNVA) | payer OTHER, SELFPAY | PROVIDERS: PCP Nurse Practitioner Family; Visit Provider Internal Medicine | DX: B20 Human immunodeficiency virus [HIV] disease (principal); Z79.899 Other long term (current) drug therapy | CPT/HCPCS: 99212 ==

== ENCOUNTER 2023-01-24 11:15 | Outpatient (AMB) | payer OTHER, SELFPAY ==
[2023-01-24 11:29] VITALS: BP 110/62; PULSE 91; O2SAT 98; BMI 43.5
--- NOTE | 2023-01-24 11:29 | A.OFFVIS_ITS ---
Intake Vital Signs 01/24/23 11:29 Height 5 ft 1 in Weight 230 lb BMI 43.5 BP 110/62 Blood Pressure Location Lt radial Position Sitting Pulse 91 Pulse Source Pulse Oximeter Pulse Oximetry (%) 98 Oxygen Delivery Method Room Air Intake Visit Reasons: bandar Intake Note: pt is here for follow up and states she has not used the cpap, she had a lot going on, please explain sleep study and talk about the usage. She has [facility] one care and a decision will have to be made. She is coughing and sneezing a little. long distance some short of breath not too bad. 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 Required: No Allergies amlodipine [AMLODIPINE] Allergy (Unknown, Verified 01/24/23 11:53) RASH cephalexin [From KEFLEX] Allergy (Unknown, Verified 01/24/23 11:53) RASH levofloxacin [From LEVAQUIN] Allergy (Unknown, Verified 01/24/23 11:53) RASH Pt states no food allergies Allergy (Unknown, Uncoded 01/24/23 11:53) Unknown Medication List - Last Reconciled 01/24/23 by Beatriz Camarillo MD albuterol sulfate 90 mcg/actuation (Ventolin HFA) 1 inh inhalation QID PRN alirocumab (Praluent Pen) 75 mg subcut Q2W 90 days aspirin 81 mg PO DAILY 90 days atorvastatin 80 mg PO DAILY yclnzgitx-rslxotja-owhljkw ala 50-200-25 mg (Biktarvy) 1 tab PO DAILY 90 days citalopram 20 mg PO DAILY PRN cyclobenzaprine 10 mg PO BEDTIME ezetimibe 10 mg PO DAILY levothyroxine 88 mcg PO DAILY lorazepam 1 mg PO BEDTIME PRN metoprolol succinate ER 100 mg PO BID nifedipine ER 30 mg PO DAILY spironolactone 50 mg PO BID 90 days Do you need a note to return to daycare/school/sports/work: No HPI bandar HPI Details 57 years old female is a known case of o bstructive sleep apnea,. Since 2013 She used CPAP for a few. Years then stopped using it She was again evaluated in June of 2022, had a home-based sleep study which showed BANDAR a with total sleep time AHI 7.4. Because of multiple comorbidities it was felt that she will be better of using the CPAP which was prescribed. The patient comes in today and tells me that she has not use the CPAP machine. She tries to sleep in lateral position and sleeps well. . She denies daytime sleepiness Lately she has started walking her daughter's dog every day and she has lost some weight. She does get short of breath when she walks with the dog at a is rapid pace, and sometimes has to use albuterol due to wheezing. [facility] Medical History NIDHI III (cervical intraepithelial neoplasia grade III) with severe dysplasia Anxiety Chronic kidney disease, stage 2 (mild) Morbid obesity Other and unspecified hyperlipidemia Essential hypertension Atherosclerotic cardiovascular disease Pituitary microadenoma Vitamin D deficiency Graves disease Post-surgical hypothyroidism Osteoarthritis GERD (gastroesophageal reflux disease) Leukopenia Cervical radiculitis Lumbar radiculopathy Pernicious anemia Obstructive sleep apnea Raynaud's phenomenon Pituitary microadenoma 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 Mother Stroke Sister Diabetes mellitus Maternal Grandmother Unknown family medical history Brother Cancer Sister No problems noted. Brother No problems noted. Daughter Healthy female Social History Housing: Apartment Alcohol intake: current Alcohol intake frequency: holidays/special occasions only Patient Tobacco Use Status: Never used Tobacco e-Cigarette/Vaping Use: Never Used Second Hand Smoke Exposure: No Current occupational status: disabled Cognitive needs: No Hearing needs: No Vision needs: No Female Reproductive History Menstrual Age of Menarche: 13 Review of Systems Const All systems reviewed & are unremarkable except as noted in HPI and below Eyes Reports no additional complaints ENT Details: FEELS LIKE HER THROAT IS CLOSING UP AT NIGHT, AND THEN SHE HAS SOME WHEEZING. Reports no additional complaints Card Denies chest pain at rest, Denies irregular heart rhythm and Denies leg edema Resp Reports as per HPI and Reports cough (OFF AND ON ESPECIALLY AT NIGHT) GI Reports no additional complaints Reports no additional complaints Musc Reports back pain Skin/Breast Reports system reviewed and no additional complaints, except as documented Neuro Reports no additional complaints Psych Reports no additional complaints Physical Exam Vital Signs: Last Vital Signs Pulse 91 01/24/23 11:29 BP 110/62 01/24/23 11:29 Pulse Ox 98 01/24/23 11:29 Oxygen Delivery Method Room Air 01/24/23 11:29 BMI result Body Mass Index 43.5 PATIENT IS MORBIDLY OBESE, WITH A ROUND FACE, Const General: healthy appearing (EXCEPT FOR BEING OVERWEIGHT), comfortable, no acute distress, alert and awake Orientation/consciousness: patient oriented x3 HEENT Head: Yes normal to inspection General nose exam: No nasal polyps present and No nasal discharge present Face and sinus: Yes sinuses nontender Mouth: oropharynx abnormals (NARROW AND CROWDED, MALLAMPATI CLASS 4) Throat: Yes posterior oropharynx normal Eyes General: appearance normal, both eyes and all related structures Neck Neck: Yes normal visual inspection, Yes no lymphadenopathy, Yes trachea midline, Yes no JVD and Yes other (NECK CIRCUMFERENCE 15-1/2 INCH) Thyroid: Thyroid normal Chest Chest palpation & inspection: normal inspection of the chest, normal palpation of entire chest wall and no tenderness Resp Other: BREATH SOUNDS ARE DISTANT ESPECIALLY OVER THE BASILAR AREAS. NO CREPITATIONS RHONCHI ARE WHEEZES ARE HEARD. Cardio Palpation: normal PMI Rate: regular rate Rhythm: regular rhythm Heart sounds: no gallops and no murmurs GI Palpation (GI): Soft to palpation, nontender, No hepatosplenomegaly present and no masses Auscultation: normal bowel sounds Back/Spine/Pelvis Thoracic/Lumbar Spine: thoracic and lumbar spine normal to inspection and thoraco-lumbar ROM limited Skin General skin exam: no rashes or lesions noted Neuro General: patient oriented x3 and no focal motor deficits Cranial nerves: Yes CN's II-XII intact bilaterally Extrem General: Yes normal to inspection, Yes no clubbing, cyanosis or edema and Yes no calf tenderness Psych Appearance: grossly normal and well kempt Speech and movement: Normal speech and movement present Assessment & Plan Assessment & Plan (1) Obstructive sleep apnea: Comment: SHE HAS A LONGSTANDING HISTORY OF OBSTRUCTIVE SLEEP APNEA. HOME-BASED SLEEP STUDY ON 06/24/2022, CONFIRMS THE DIAGNOSIS OF BANDAR. TOTAL SLEEP TIME AHI IS ONLY 7.3 ( MILD BANDAR ) * HOWEVER SHE HAS COMORBIDITIES INCLUDING HYPERTENSION, CORONARY ARTERY DISEA SE, , DEPRESSION, AND THUS SHE QUALIFIES TO BE ON CPAP THERAPY. DISCUSSED WITH HER THOROUGHLY AND I TOLD HER TO START USING THE CPAP REGULARLY. SHE SEEMS TO BE AGREEABLE AND WILL TRY TO USE IT EVERY NIGHT. WILL RECHECK HER IN 2 MONTHS FOR FOLLOW-UP. Code(s): G47.33 - Obstructive sleep apnea (adult) (pediatric) (2) Wheezing: Comment: HER WHEEZING MOSTLY AT NIGHT IS PROBABLY PART OF HER OBSTRUCTIVE SLEEP APNEA, SOME SHORTNESS OF BREATH ON WALKING, MAY BE DUE TO OBESITY, AND DECONDITIONING, OR DUE TO MILD BRONCHIAL ASTHMA. TX : SHE MAY USE ALBUTEROL HFA P.R.N., BUT ONLY DURING THE DAYTIME NEEDED. PREVIOUS PULMONARY FUNCTION TEST ABOUT 6 YEARS AGO, SHOWED RESTRICTIVE PULMONARY DISORDER, NO OBSTRUCTIVE AIRWAY DISORDER. Code(s): R06.2 - Wheezing Coding Level of Care Code Est Pt Level 3 (88870) Diagnoses Obstructive sleep apnea G47.33 Wheezing R06.2
== END 2023-01-24 11:51 | disposition home or self-care (01) ==
PROVIDERS: PCP Nurse Practitioner Family; Visit Provider Internal Medicine
DX: G47.33 Obstructive sleep apnea (adult) (pediatric) (principal); R06.2 Wheezing
CPT/HCPCS: 99213

== ENCOUNTER → 2023-01-24 11:15 | Outpatient (BNVA) | payer OTHER, SELFPAY | PROVIDERS: PCP Nurse Practitioner Family; Visit Provider Internal Medicine | DX: G47.33 Obstructive sleep apnea (adult) (pediatric) (principal); R06.2 Wheezing | CPT/HCPCS: 99212 ==

== ENCOUNTER 2023-01-31 16:29 | Outpatient (REF) | payer OTHER, SELFPAY | END 2023-01-31 16:30 | disposition home or self-care (01) | LOC: HO.MRI 16:29 | PROVIDERS: PCP Nurse Practitioner Family; Visit Provider Internal Medicine Endocrinology, Diabetes & Metabolism | DX: Z13.89 Encounter for screening for other disorder (principal) ==

== ENCOUNTER → 2023-02-02 09:00 | Outpatient (BNV) | payer OTHER, SELFPAY | PROVIDERS: PCP Nurse Practitioner Family; Visit Provider Radiology Diagnostic Radiology | DX: Z12.31 Encounter for screening mammogram for malignant neoplasm of breast (principal) | CPT/HCPCS: 77063; 77067 ==

== ENCOUNTER 2023-02-02 09:01 | Outpatient (REF) | payer OTHER, SELFPAY ==
--- NOTE | ~2023-02-02 | MM_ITS ---
EXAMINATION: MM SCREENING DIGITAL BREAST TOMOSYNTHESIS, BILATERAL CLINICAL INFORMATION: Screening. Asymptomatic. COMPARISON: Mammography: 01/28/2022, 02/02/2022, 01/26/2021, 12/12/2019, 09/03/2018 TECHNIQUE: Digital breast tomosynthesis is performed in both the craniocaudal and mediolateral oblique views along with computer-aided detection (CAD). Synthesized 2D images are generated from the tomosynthesis. FINDINGS: There are scattered areas of fibroglandular density (ACR BI-RADS breast composition Category b). Stable intramammary lymph node upper outer left breast posterior one third. There are no suspicious masses, suspicious grouped calcifications, or areas of architectural distortion in either breast. The parenchymal pattern is stable from prior exams. No skin or axillary abnormalities. MM/MM tomosynthesis screening BI IMPRESSION: No mammographic evidence of malignancy. Stable benign findings. ASSESSMENT: BI-RADS BI-RADS 2 - Benign Findings RECOMMENDATION: Routine annual mammography screening. 1 year F/U This examination should not preclude the clinical evaluation of a suspicious palpable abnormality. This patient's information was entered into a reminder system with a target due date for their next mammogram.
== END 2023-02-02 09:02 | disposition home or self-care (01) ==
LOC: HO.MAMMO 09:01
PROVIDERS: PCP Nurse Practitioner Family; Visit Provider Nurse Practitioner Family
DX: Z12.31 Encounter for screening mammogram for malignant neoplasm of breast (principal)
CPT/HCPCS: 77063; 77067

== ENCOUNTER 2023-02-16 08:54 | Outpatient (REF) | payer OTHER, SELFPAY ==
--- NOTE | ~2023-02-16 | MR_ITS ---
EXAMINATION: MR BRAIN WITHOUT AND WITH CONTRAST CLINICAL INFORMATION: Benign neoplasm of pituitary gland. COMPARISON: Brain MRI 08/12/2020. TECHNIQUE: Multiplanar, multisequence imaging of the brain was performed before and after the intravenous administration of 5 mL of Gadavist. FINDINGS: There is redemonstration of a lobulated hypoenhancing lesion in the left aspect of the pituitary gland measuring up to 9 mm, similar in size and morphology compared with 10/24/2018. A small nodular component along the posterior aspect of the lesion is again identified, stable from prior. Infundibulum is normal thickness and morphology and inserts to the right of midline. The optic apparatus appears normal. No optic nerve compression is seen. The cavernous sinuses enhance normally. There is no acute or chronic infarction, hemorrhage, parenchymal mass, or extra-axial fluid collection. Nonspecific foci of T2/FLAIR hyperintensity seen within the cerebral white matter without change. The ventricles are normal in size. The major arterial flow voids appear preserved at the skull base. The extracranial structures are within normal limits. 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 No new or acute findings.
[2023-02-16] MEDS: gadobutroL 7.5 ML VIAL IVPUSH (10:46)
== END 2023-02-16 08:55 | disposition home or self-care (01) ==
LOC: HO.MRI 08:54
PROVIDERS: PCP Nurse Practitioner Family; Visit Provider Internal Medicine Endocrinology, Diabetes & Metabolism
DX: D35.2 Benign neoplasm of pituitary gland (principal)
CPT/HCPCS: 70553; A9585

== ENCOUNTER 2023-02-22 09:56 | Outpatient (AMB) | payer OTHER, SELFPAY ==
--- NOTE | 2023-02-22 10:08 | MHC.OFFVIS ---
Intake Vital Signs 02/22/23 10:11 Height 5 ft 1 in Weight 235 lb BMI 44.4 BP 122/62 Blood Pressure Location Lt radial Position Sitting Pulse 76 Pulse Source Pulse Oximeter Pulse Oximetry (%) 98 Oxygen Delivery Method Room Air Intake Visit Reasons: Obstructive sleep apnea Intake Note: pt is here for follow up of using cpap and she does not really like the machine, but she is sleeping with it. 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: No Allergies amlodipine [AMLODIPINE] Allergy (Unknown, Verified 02/22/23 10:17) RASH cephalexin [From KEFLEX] Allergy (Unknown, Verified 02/22/23 10:17) RASH levofloxacin [From LEVAQUIN] Allergy (Unknown, Verified 02/22/23 10:17) RASH Pt states no food allergies Allergy (Unknown, Uncoded 02/22/23 10:17) Unknown [facility] Medical History NIDHI III (cervical intraepithelial neoplasia grade III) with severe dysplasia Anxiety Chronic kidney disease, stage 2 (mild) Morbid obesity Other and unspecified hyperlipidemia Essential hypertension Atherosclerotic cardiovascular disease Pituitary microadenoma Vitamin D deficiency Graves disease Post-surgical hypothyroidism Osteoarthritis GERD (gastroesophageal reflux disease) Leukopenia Cervical radiculitis Lumbar radiculopathy Pernicious anemia Obstructive sleep apnea Raynaud's phenomenon Pituitary microadenoma 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 Mother Stroke Sister Diabetes mellitus Maternal Grandmother Unknown family medical history Brother Cancer Sister No problems noted. Brother No problems noted. Daughter Healthy female Social History Housing: Apartment Alcohol intake: current Alcohol intake frequency: holidays/special occasions only Patient Tobacco Use Status: Never used Tobacco e-Cigarette/Vaping Use: Never Used Second Hand Smoke Exposure: No Current occupational status: disabled Cognitive needs: No Hearing needs: No Vision needs: No Female Reproductive History Menstrual Age of Menarche: 13 Physical Exam Vital Signs: Last Vital Signs Pulse 76 02/22/23 10:11 BP 122/62 02/22/23 10:11 Pulse Ox 98 02/22/23 10:11 Oxygen Delivery Method Room Air 02/22/23 10:11 BMI result Body Mass Index 44.4 Coding
[2023-02-22 10:11] VITALS: BP 122/62; PULSE 76; O2SAT 98; BMI 44.4
--- NOTE | 2023-02-22 10:22 | A.OFFVIS_ITS ---
Intake Vital Signs 02/22/23 10:11 02/22/23 10:25 Height 5 ft 1 in Weight 235 lb BMI 44.4 44.4 BP 122/62 Blood Pressure Location Lt radial Position Sitting Pulse 76 Pulse Source Pulse Oximeter Pulse Oximetry (%) 98 Oxygen Delivery Method Room Air Intake Visit Reasons: Obstructive sleep apnea Allergies amlodipine [AMLODIPINE] Allergy (Unknown, Verified 02/22/23 10:22) RASH cephalexin [From KEFLEX] Allergy (Unknown, Verified 02/22/23 10:22) RASH levofloxacin [From LEVAQUIN] Allergy (Unknown, Verified 02/22/23 10:22) RASH Pt states no food allergies Allergy (Unknown, Uncoded 02/22/23 10:22) Unknown Medication List - Last Reconciled 02/22/23 by Beatriz Camarillo MD albuterol sulfate 90 mcg/actuation (Ventolin HFA) 1 inh inhalation QID PRN alirocumab (Praluent Pen) 75 mg subcut Q2W 90 days aspirin 81 mg PO DAILY 90 days atorvastatin 80 mg PO DAILY ixajcypav-yutoouog-uiejqts ala 50-200-25 mg (Biktarvy) 1 tab PO DAILY 90 days citalopram 20 mg PO DAILY PRN cyclobenzaprine 10 mg PO BEDTIME ezetimibe 10 mg PO DAILY levothyroxine 88 mcg PO DAILY lorazepam 1 mg PO BEDTIME PRN metoprolol succinate ER 100 mg PO BID nifedipine ER 30 mg PO DAILY spironolactone 50 mg PO BID 90 days Do you need a note to return to daycare/school/sports/work: No HPI HPI Comments History of Present Illness Details 57 YEARS OLD FEMALE WITH MORBID OBESITY AND OBSTRUCTIVE SLEEP APNEA, RECENTLY STARTED USING THE CPAP. COMES BACK AFTER 1 MONTH FOR FOLLOW-UP. ADMITS THAT SHE IS USING CPAP EVERY NIGHT, BUT MISSED ONLY 3 NIGHTS DURING THE LAST MONTH. SHE SLEEPS MUCH. BETTER WITH THE CPAP ON WAKES UP MORE REFRESHED, AND DENIES DAYTIME SLEEPINESS. WEIGHT HAS NOT CHANGED. BREATHING IS OKAY, USES ALBUTEROL HFA ONLY ONCE IN A WHILE. 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 Mother Stroke Sister Diabetes mellitus Maternal Grandmother Unknown family medical history Brother Cancer Sister No problems noted. Brother No problems noted. Daughter Healthy female Social History Housing: Apartment Alcohol intake: current Alcohol intake frequency: holidays/special occasions only Patient Tobacco Use Status: Never used Tobacco e-Cigarette/Vaping Use: Never Used Second Hand Smoke Exposure: No Current occupational status: disabled Cognitive needs: No Hearing needs: No Vision needs: No Female Reproductive History Menstrual Age of Menarche: 13 Review of Systems Const All systems reviewed & are unremarkable except as noted in HPI and below Eyes Reports no additional complaints ENT Details: FEELS LIKE HER THROAT IS CLOSING UP AT NIGHT, AND THEN SHE HAS SOME WHEEZING. Reports no additional complaints Card Denies chest pain at rest, Denies irregular heart rhythm and Denies leg edema Resp Reports as per HPI and Reports cough (OFF AND ON ESPECIALLY AT NIGHT) GI Reports no additional complaints Reports no additional complaints Musc Reports back pain Skin/Breast Reports system reviewed and no additional complaints, except as documented Neuro Reports no additional complaints Psych Reports no additional complaints Physical Exam Vital Signs: Last Vital Signs Pulse 76 02/22/23 10:11 BP 122/62 02/22/23 10:11 Pulse Ox 98 02/22/23 10:11 Oxygen Delivery Method Room Air 02/22/23 10:11 BMI result Body Mass Index 44.4 PATIENT IS MORBIDLY OBESE, WITH A ROUND FACE, Const General: healthy appearing (EXCEPT FOR BEING OVERWEIGHT), comfortable, no acute distress, alert and awake Orientation/consciousness: patient oriented x3 HEENT Head: Yes normal to inspection General nose exam: No nasal polyps present and No nasal discharge present Face and sinus: Yes sinuses nontender Mouth: oropharynx abnormals (NARROW AND CROWDED, MALLAMPATI CLASS 4) Throat: Yes posterior oropharynx normal Eyes General: appearance normal, both eyes and all related structures Neck Neck: Yes normal visual inspection, Yes no lymphadenopathy, Yes trachea midline, Yes no JVD and Yes other (NECK CIRCUMFERENCE 15-1/2 INCH) Thyroid: Thyroid normal Chest Chest palpation & inspection: normal inspection of the chest, normal palpation of entire chest wall and no tenderness Resp Other: BREATH SOUNDS ARE DISTANT ESPECIALLY OVER THE BASILAR AREAS. NO CREPITATIONS RHONCHI ARE WHEEZES ARE HEARD. Cardio Palpation: normal PMI Rate: regular rate Rhythm: regular rhythm Heart sounds: no gallops and no murmurs GI Palpation (GI): Soft to palpation, nontender, No hepatosplenomegaly present and no masses Auscultation: normal bowel sounds Back/Spine/Pelvis Thoracic/Lumbar Spine: thoracic and lumbar spine normal to inspection and thoraco-lumbar ROM limited Skin General skin exam: no rashes or lesions noted Neuro General: patient oriented x3 and no focal motor deficits Cranial nerves: Yes CN's II-XII intact bilaterally Extrem General: Yes normal to inspection, Yes no clubbing, cyanosis or edema and Yes no calf tenderness Psych Appearance: grossly normal and well kempt Speech and movement: Normal speech and movement present Results Reviewed Results Reviewed: COMPLIANCE REPORT FOR THE LAST 30 NIGHTS REVIEWED. SHE USED 26/30 NIGHTS, 87%. AVERAGE USE PER NIGHT 4 HOURS 47 MINUTES. NO AIR LEAK. RESIDUAL AHI 1.8 Assessment & Plan Assessment & Plan (1) Morbid obesity: Comment: PATIENT CONTINUES TO BE MORBIDLY OBESE, CURRENT BMI 44.4 , SHE IS TRYING TO LOSE WEIGHT SLOWLY. ENCOURAGED TO WALK WITH THE DOG ABOUT 2 MILES DAILY. Code(s): E66.01 - Morbid (severe) obesity due to excess calories (2) Obstructive sleep apnea: Comment: SHE HAS A LONGSTANDING HISTORY OF OBSTRUCTIVE SLEEP APNEA. HOME-BASED SLEEP STUDY ON 06/24/2022, CONFIRMS THE DIAGNOSIS OF BANDAR. TOTAL SLEEP TIME AHI IS ONLY 7.3 ( MILD BANDAR ) * HOWEVER SHE HAS COMORBIDITIES INCLUDING HYPERTENSION, CORONARY ARTERY DISEASE, , DEPRESSION, AND THUS SHE QUALIFIES TO BE ON CPAP THERAPY. SHE WAS ADVISED TO USE THE CPAP MORE REGULARLY. NOW HER COMPLIANCE IS GOOD, . SHE IS SLEEPING BETTER. ENCOURAGED TO KEEP ON USING AT LEAST FOR 6 HOURS EVERY NIGHT. Code(s): G47.33 - Obstructive sleep apnea (adult) (pediatric) (3) Wheezing: Comment: HER WHEEZING MOSTLY AT NIGHT IS PROBABLY PART OF HER OBSTRUCTIVE SLEEP APNEA, SOME SHORTNESS OF BREATH ON WALKING, MAY BE DUE TO OBESITY, AND DECONDITIONING, OR DUE TO MILD BRONCHIAL ASTHMA. TX : SHE MAY USE ALBUTEROL HFA P.R.N., BUT ONLY DURING THE DAYTIME NEEDED. PREVIOUS PULMONARY FUNCTION TEST ABOUT 6 YEARS AGO, SHOWED RESTRICTIVE PULMONARY DISORDER, NO OBSTRUCTIVE AIRWAY DISORDER. Code(s): R06.2 - Wheezing Coding Level of Care Code Est Pt Level 3 (63965) Diagnoses Morbid obesity E66.01 Obstructive sleep apnea G47.33 Wheezing R06.2
[2023-02-22 10:25] VITALS: BMI 44.4
== END 2023-02-22 10:28 | disposition home or self-care (01) ==
PROVIDERS: PCP Nurse Practitioner Family; Visit Provider Internal Medicine
DX: E66.01 Morbid (severe) obesity due to excess calories (principal); G47.33 Obstructive sleep apnea (adult) (pediatric); R06.2 Wheezing
CPT/HCPCS: 99213

== ENCOUNTER → 2023-02-22 09:56 | Outpatient (BNVA) | payer OTHER, SELFPAY | PROVIDERS: PCP Nurse Practitioner Family; Visit Provider Internal Medicine | DX: G47.33 Obstructive sleep apnea (adult) (pediatric) (principal); R06.2 Wheezing; E66.01 Morbid (severe) obesity due to excess calories; Z68.41 Body mass index [BMI] 40.0-44.9, adult | CPT/HCPCS: 99212 ==

== ENCOUNTER 2023-02-23 10:47 | Outpatient (AMB) | payer OTHER, SELFPAY ==
--- NOTE | 2023-02-23 10:48 | A.OFFVIS_ITS ---
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 Pt states her knee pain has been going on for years but has gotten worse within the past couple of months.Pt state her right knee is more painful at this time. Pt denies any previous surgeries on her knees. Pt states she had cortisone injections in the past which gave her minimal relief. She states that both of her knees will give out several times per day. She has done physical therapy exercises which aggravated her pain. She has also tried Tylenol and anti- inflammatory medicines which gave her minimal relief. She would like to hold off on surgery for as long as possible. Allergies amlodipine [AMLODIPINE] Allergy (Unknown, Verified 02/23/23 10:49) RASH cephalexin [From KEFLEX] Allergy (Unknown, Verified 02/23/23 10:49) RASH levofloxacin [From LEVAQUIN] Allergy (Unknown, Verified 02/23/23 10:49) RASH Pt states no food allergies Allergy (Unknown, Uncoded 02/23/23 10:49) Unknown Medication List - Last Reconciled 02/23/23 by Kp Cannon MD albuterol sulfate 90 mcg/actuation (Ventolin HFA) 1 inh inhalation QID PRN alirocumab (Praluent Pen) 75 mg subcut Q2W 90 days aspirin 81 mg PO DAILY 90 days atorvastatin 80 mg PO DAILY mmkwsmknx-euetmpad-zinfsha ala 50-200-25 mg (Biktarvy) 1 tab PO DAILY 90 days citalopram 20 mg PO DAILY PRN cyclobenzaprine 10 mg PO BEDTIME ezetimibe 10 mg PO DAILY levothyroxine 88 mcg PO DAILY lorazepam 1 mg PO BEDTIME PRN metoprolol succinate ER 100 mg PO BID nifedipine ER 30 mg PO DAILY spironolactone 50 mg PO BID 90 days [facility] Medical History NIDHI III (cervical intraepithelial neoplasia grade III) with severe dysplasia Anxiety Chronic kidney disease, stage 2 (mild) Morbid obesity Other and unspecified hyperlipidemia Essential hypertension Atherosclerotic cardiovascular disease Pituitary microadenoma Vitamin D deficiency Graves disease Post-surgical hypothyroidism Osteoarthritis GERD (gastroesophageal reflux disease) Leukopenia Cervical radiculitis Lumbar radiculopathy Pernicious anemia Obstructive sleep apnea Raynaud's phenomenon Pituitary microadenoma 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 Mother Stroke Sister Diabetes mellitus Maternal Grandmother Unknown family medical history Brother Cancer Sister No problems noted. Brother No problems noted. Daughter Healthy female Social History Housing: Apartment Alcohol intake: current Alcohol intake frequency: holidays/special occasions only Patient Tobacco Use Status: Never used Tobacco e-Cigarette/Vaping Use: Never Used Second Hand Smoke Exposure: No Current occupational status: disabled Cognitive needs: No Hearing needs: No Vision needs: No Female Reproductive History Menstrual Age of Menarche: 13 Physical Exam Const Other: Well-nourished well-developed very friendly female awake alert and oriented x3 in no acute distress Extrem Other: Bilateral lower extremity examination shows good capillary refill, no skin lesions noted, normal sensation light touch Bilateral knee examination shows palpable crepitus with range of motion, pain with range of motion, range of motion from -3 degrees to 115 degrees, no instability Results Reviewed Results Reviewed: X-rays of the patient's right knee show moderate to severe joint space narrowing most significant in the patellofemoral joint, subchondral sclerosis, osteophyte formation, no acute bony abnormalities X-rays of the patient's left knee show moderate joint space narrowing, subchondral sclerosis, no acute bony abnormalities Assessment & Plan Assessment & Plan (1) Arthritis of left knee: Code(s): M17.12 - Unilateral primary osteoarthritis, left knee Plan: Ms. Chacon presents with bilateral knee pains and mechanical symptoms due to degenerative joint disease. I had a lengthy discussion with the patient regarding the treatment options. She wishes to hold off on surgery for as long as possible. I agree with plan. She has had cortisone injections in the past which gave her minimal relief. Thus, I will see whether not her insurance company will cover a viscosupplementation injection for both of her knees. I will see her back once the injections are available. I also had her fitted with bilateral knee braces. I feel that the knee braces are a medical necessity to help prevent future falls because of her symptoms of instability. The patient will follow-up as instructed. Feel free to call me at any time should questions regarding her orthopedic management arise. Thank you very much for asking me to see this very friendly patient. I spent 22 minutes in reviewing the patient's records and imaging studies, seeing the patient and documenting in the medical record. (2) Arthritis of right knee: Code(s): M17.11 - Unilateral primary osteoarthritis, right knee Orders: Orders XR knee LT 3V Today M25.562 - Pain in left knee XR knee RT 3V Today M25.561 - Pain in right knee Coding Level of Care Code New Pt Level 2 (93842) Diagnoses Arthritis of left knee M17.12 Arthritis of right knee M17.11
== END 2023-02-23 11:18 | disposition home or self-care (01) ==
PROVIDERS: PCP Nurse Practitioner Family; Visit Provider Orthopaedic Surgery
DX: M17.0 Bilateral primary osteoarthritis of knee (principal)
CPT/HCPCS: 99202

== ENCOUNTER 2023-02-23 11:54 | Outpatient (REF) | payer OTHER, SELFPAY ==
--- NOTE | ~2023-02-23 | XR_ITS ---
EXAMINATION: XR KNEE, LEFT CLINICAL INFORMATION: Pain in left knee COMPARISON: Left knee 02/10/2016 TECHNIQUE: Four views of the left knee. FINDINGS: No fracture. No joint effusion. Alignment is anatomic. Small marginal aspects are present in the patellofemoral and medial joint compartments. Joint spaces are maintained. No abnormal soft tissue calcification. XR/XR knee LT 3V IMPRESSION: Mild medial and patellofemoral joint compartment osteoarthritis.
--- NOTE | ~2023-02-23 | XR_ITS ---
EXAMINATION: XR KNEE, RIGHT CLINICAL INFORMATION: Right knee pain. COMPARISON: 10/24/2017. TECHNIQUE: AP, lateral and sunrise views of the right knee. FINDINGS: Joint effusion. Mild medial joint space narrowing. Small tricompartmental osteophytes. Narrowing of the patellofemoral joint space. A 2.3 x 1.1 cm amorphous, heterogeneous calcification in the right suprapatellar region was not identified on exam of 10/24/2017. XR/XR knee RT 3V IMPRESSION: Progression of degenerative changes. 2.3 x 1.1 cm amorphous, heterogeneous calcification in the right suprapatellar region was not identified on exam of 10/24/2017. Correlation with clinical exam and possible additional imaging with CT scan or MRI recommended.
== END 2023-02-23 11:55 | disposition home or self-care (01) ==
LOC: HO.HOSX 11:54
PROVIDERS: Visit Provider Orthopaedic Surgery
DX: M17.0 Bilateral primary osteoarthritis of knee (principal)
CPT/HCPCS: 73562; 99202

== ENCOUNTER 2023-03-15 10:28 | Outpatient (AMB) | payer OTHER, SELFPAY ==
--- NOTE | 2023-03-15 10:31 | A.OFFVIS_ITS ---
Intake Intake Visit Reasons: Bilateral Knee Durolane Intake Note: Miriam is a 57 year old female who presents today with complaints of bilateral knee pains. She has had cortisone injections in the past which gave her minimal relief. She has not had viscosupplementation injections. She has tried Tylenol and anti-inflammatory medicines which gave her minimal relief. She has also done physical therapy which aggravated her pain. She wishes to hold off on surgery for as long as possible. Allergies amlodipine [AMLODIPINE] Allergy (Unknown, Verified 03/15/23 10:43) RASH cephalexin [From KEFLEX] Allergy (Unknown, Verified 03/15/23 10:43) RASH levofloxacin [From LEVAQUIN] Allergy (Unknown, Verified 03/15/23 10:43) RASH Pt states no food allergies Allergy (Unknown, Uncoded 03/15/23 10:43) Unknown Medication List - Last Reconciled 03/15/23 by Kp Cannon MD albuterol sulfate 90 mcg/actuation (Ventolin HFA) 1 inh inhalation QID PRN alirocumab (Praluent Pen) 75 mg subcut Q2W 90 days aspirin 81 mg PO DAILY 90 days atorvastatin 80 mg PO DAILY dwpmjxvaf-azwbfbrj-ovprhwg ala 50-200-25 mg (Biktarvy) 1 tab PO DAILY 90 days citalopram 20 mg PO DAILY PRN cyclobenzaprine 10 mg PO BEDTIME ezetimibe 10 mg PO DAILY levothyroxine 88 mcg PO DAILY lorazepam 1 mg PO BEDTIME PRN metoprolol succinate ER 100 mg PO BID nifedipine ER 30 mg PO DAILY spironolactone 50 mg PO BID 90 days [facility] Medical History NIDHI III (cervical intraepithelial neoplasia grade III) with severe dysplasia Anxiety Chronic kidney disease, stage 2 (mild) Morbid obesity Other and unspecified hyperlipidemia Essential hypertension Atherosclerotic cardiovascular disease Pituitary microadenoma Vitamin D deficiency Graves disease Post-surgical hypothyroidism Osteoarthritis GERD (gastroesophageal reflux disease) Leukopenia Cervical radiculitis Lumbar radiculopathy Pernicious anemia Obstructive sleep apnea Raynaud's phenomenon Pituitary microadenoma 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 Mother Stroke Sister Diabetes mellitus Maternal Grandmother Unknown family medical history Brother Cancer Sister No problems noted. Brother No problems noted. Daughter Healthy female Social History Housing: Apartment Alcohol intake: current Alcohol intake frequency: holidays/special occasions only Patient Tobacco Use Status: Never used Tobacco e-Cigarette/Vaping Use: Never Used Second Hand Smoke Exposure: No Current occupational status: disabled Cognitive needs: No Hearing needs: No Vision needs: No Female Reproductive History Menstrual Age of Menarche: 13 Physical Exam Const Other: Well-nourished well-developed very friendly female awake alert and oriented x3 in no acute distress Extrem Other: Bilateral lower extremity examination shows good capillary refill, no skin lesions noted, normal sensation light touch Bilateral knee examination shows minimal effusions, palpable crepitus with range of motion, pain with range of motion, range of motion from -3 degrees to 115 degrees, no instability Office Procedures Joint Injection/Drain Joint Injection/Drain Primary Site: left knee Prep: site was prepped using aseptic technique Injected: 60 mg of (Durolane) and 1% plain lidocaine Procedure: The patient tolerated the procedure well Coding 72570 - Large joint Procedure code (CPT) selection complete Joint Injection/Drain Joint Injection/Drain Primary Site: right knee Prep: site was prepped using aseptic technique Injected: 60 mg of (Durolane) and 1% plain lidocaine Procedure: The patient tolerated the procedure well Coding 15475 - Large joint Procedure code (CPT) selection complete Results Reviewed Results Reviewed: X-rays of the patient's bilateral knee show joint space narrowing, subchondral sclerosis, no acute bony abnormalities Assessment & Plan Assessment & Plan (1) Arthritis of left knee: Code(s): M17.12 - Unilateral primary osteoarthritis, left knee (2) Arthritis of right knee: Code(s): M17.11 - Unilateral primary osteoarthritis, right knee Plan: Ms. Chacon presents with bilateral knee pains due to degenerative joint disease. I had a lengthy discussion with the patient regarding the treatment options. She wishes to hold off on surgery for as long as possible. I agree with this plan. The patient has not fashion relief from cortisone injections has. Thus, the risks and benefits of bilateral knee Durolane and viscosupplementation injections with a at length with the patient. The patient wished to proceed. She tolerated the injections well. She will continue with her home exercise program. She will follow up with me on an as-needed basis should her symptoms not plateau at an unacceptable level over the next few months. Feel free to call me at any time should questions regarding her orthopedic management arise. I spent 24 minutes in reviewing the patient's records and imaging studies, seeing the patient and documenting in the medical record. Orders: Orders AMB Joint Injection/Aspiration Today M17.12 - Unilateral primary osteoarthritis, left knee AMB Joint Injection/Aspiration Today M17.11 - Unilateral primary osteoarthritis, right knee Coding Level of Care Code Est Pt Level 2 (48432) Diagnoses Arthritis of left knee M17.12 Arthritis of right knee M17.11 CPT Codes Coding - 81914 Large joint: 38042 - Large joint ([id number]) Coding - 39439 Large joint: 49913 - Large joint ([id number])
== END 2023-03-15 10:55 | disposition home or self-care (01) ==
PROVIDERS: PCP Nurse Practitioner Family; Visit Provider Orthopaedic Surgery
DX: M17.0 Bilateral primary osteoarthritis of knee (principal)
CPT/HCPCS: 20610

== ENCOUNTER → 2023-03-15 10:28 | Outpatient (BNVA) | payer OTHER, SELFPAY | PROVIDERS: PCP Nurse Practitioner Family; Visit Provider Orthopaedic Surgery | DX: M17.12 Unilateral primary osteoarthritis, left knee (principal); M17.11 Unilateral primary osteoarthritis, right knee | CPT/HCPCS: 20610; J7318 ==

== ENCOUNTER 2023-04-06 10:11 | Outpatient (AMB) | payer OTHER, SELFPAY ==
[2023-04-06 10:12] VITALS: BP 110/82; PULSE 63; BMI 44.9
--- NOTE | 2023-04-06 10:12 | MHC.OFFVIS ---
Intake Vital Signs 04/06/23 10:12 Height 5 ft 1 in Weight 237 lb 14.06 oz BMI 44.9 BP 110/82 Blood Pressure Location Lt brachial Position Sitting Pulse 63 Pulse Source Pulse Oximeter Intake Visit Reasons: pituiary microadenoma /postablative hypothyroidism Intake Note: Patient present today for Pituitary microadenoma and post ablative hypothyroidism follow up visit. Lead Accountant Required: No Accompanied by: Self / Same As Patient Allergies amlodipine [AMLODIPINE] Allergy (Unknown, Verified 04/06/23 10:18) RASH cephalexin [From KEFLEX] Allergy (Unknown, Verified 04/06/23 10:18) RASH levofloxacin [From LEVAQUIN] Allergy (Unknown, Verified 04/06/23 10:18) RASH Pt states no food allergies Allergy (Unknown, Uncoded 03/15/23 10:43) Unknown HPI HPI Comments History of Present Illness Details 57 year-old female today for follow-up for pituitary micro adenoma, postsurgical hypothyroidism. Last visit, she has returned to her primary care provider regarding hypothyroidism With regard to the pituitary adenoma, biochemistry revealed intermittent elevation and ACTH and cortisol. She has had a midnight salivary cortisol in the past that was normal . A repeat midnight salivary cortisol was recently found to be normal and 24 hour urine for free cortisol was also normal. Last MRI was in 2020. Recent MRI showed no change in the size of the adenoma 10/24/18 Brain MRI There has been a mild interval increased in size of a cyst within the left aspect of the anterior pituitary lobe that currently measures 0.8 cm AP by 0.7 cm CC by 0.9 cm TV compared to 0.8 cm AP by 0.7 cm CC x By 0.8 cm TV. There is a similar mild upward convex margin of the pituitary gland and mild rightward deviation of the infundibulum. No mass effect on the optic nerve apparatus. Cavernous sinuses are symmetric and normal. Laboratory Tests 06/19/20 07/16/20 07/16/20 10:53 08:35 08:35 Sodium Potassium Creatinine Estimated GFR Calcium Albumin 4.1 TSH Free T4 Estradiol Ultra LC MSMS 17 FSH 90.6 Luteinizing Hormon e 37.5 Prolactin 8.3 Somatomedin-C 99 Cortisol ACTH 85 H 07/16/20 07/16/20 08:35 08:35 Sodium 143 Potassium 4.0 Creatinine 1.40 Estimated GFR 39 Calcium 8.7 Albumin TSH 0.64 Free T4 1.03 Estradiol Ultra LC MSMS FSH Luteinizing Hormon e Prolactin Somatomedin-C Cortisol 23.1 H ACTH PFSH Medical History NIDHI III (cervical intraepithelial neoplasia grade III) with severe dysplasia Anxiety Chronic kidney disease, stage 2 (mild) Morbid obesity Other and unspecified hyperlipidemia Essential hypertension Atherosclerotic cardiovascular disease Pituitary microadenoma Vitamin D deficiency Graves disease Post-surgical hypothyroidism Osteoarthritis GERD (gastroesophageal reflux disease) Leukopenia Cervical radiculitis Lumbar radiculopathy Pernicious anemia Obstructive sleep apnea Raynaud's phenomenon Pituitary microadenoma 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 Mother Stroke Sister Diabetes mellitus Maternal Grandmother Unknown family medical history Brother Cancer Sister No problems noted. Brother No problems noted. Daughter Healthy female Social History Housing: Apartment Alcohol intake: current Alcohol intake frequency: holidays/special occasions only Patient Tobacco Use Status: Never used Tobacco e-Cigarette/Vaping Use: Never Used Second Hand Smoke Exposure: No Current occupational status: disabled Cognitive needs: No Hearing needs: No Vision needs: No Female Reproductive History Menstrual Age of Menarche: 13 Physical Exam Vital Signs: Last Vital Signs Pulse 63 04/06/23 10:12 BP 110/82 04/06/23 10:12 BMI result Body Mass Index 44.9 Const Other: There are no cushingoid features. There is a presence of morbid obesity. There is a healed scar in the neck status post thyroidectomy. There is a presence of mild proptosis but no lid lag or stare or restriction of movement 2+ DTR .No visual field defects by gross confrontation Assessment & Plan Assessment & Plan (1) Pituitary microadenoma: Code(s): D35.2 - Benign neoplasm of pituitary gland Plan: The patient has a pituitary microadenoma described as assessed stable in size on MRI in 2020 without any visual compromise. This appears to be non secretory The plan is continued observation. Continue to follow with serial MRIs (2) Graves disease: Code(s): E05.00 - Thyrotoxicosis with diffuse goiter without thyrotoxic crisis or storm Plan: Status post thyroidectomy on 88 mcg of levothyroxine . Return to primary care provider for management Coding Level of Care Code Est Pt Level 3 (31792) Diagnoses Pituitary microadenoma D35.2 Graves disease E05.00
== END 2023-04-06 10:55 | disposition home or self-care (01) ==
PROVIDERS: PCP Nurse Practitioner Family; Visit Provider Internal Medicine Endocrinology, Diabetes & Metabolism
DX: D35.2 Benign neoplasm of pituitary gland (principal); E05.00 Thyrotoxicosis with diffuse goiter without thyrotoxic crisis or storm
CPT/HCPCS: 99213

== ENCOUNTER → 2023-04-06 10:11 | Outpatient (BNVA) | payer OTHER, SELFPAY | PROVIDERS: PCP Nurse Practitioner Family; Visit Provider Internal Medicine Endocrinology, Diabetes & Metabolism | DX: D35.2 Benign neoplasm of pituitary gland (principal); E05.00 Thyrotoxicosis with diffuse goiter without thyrotoxic crisis or storm | CPT/HCPCS: 99212 ==

== ENCOUNTER 2023-05-09 10:21 | Outpatient (REF) | payer OTHER, SELFPAY ==
[2023-05-13 06:43] LABS: HPV mRNA E6/E7 rflx Not Detected (Not Detected)
== END 2023-05-09 10:22 | disposition home or self-care (01) ==
LOC: HO.LNP 10:21
PROVIDERS: PCP Nurse Practitioner Family; Visit Provider Obstetrics & Gynecology
DX: Z01.419 Encounter for gynecological examination (general) (routine) without abnormal findings (principal); R87.810 Cervical high risk human papillomavirus (HPV) DNA test positive; B20 Human immunodeficiency virus [HIV] disease; Z78.0 Asymptomatic menopausal state
CPT/HCPCS: 87624; 88142

== ENCOUNTER 2023-05-09 10:21 | Outpatient (AMB) | payer OTHER, SELFPAY ==
[2023-05-09 10:25] VITALS: BP 114/78; BMI 44.2
--- NOTE | 2023-05-09 10:25 | A.OFFVIS_ITS ---
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 No complaints. Last Pap/HPV was in 03/08 was negative/HPV E6/E7 positive, colpo/biopsy/ECC negative Last Mammogram was BI-RADS 2 in 02/06 Last Colonoscopy [facility] Medical History (Updated 05/09/23 @ 10:35 by Bob King MD) NIDHI III (cervical intraepithelial neoplasia grade III) with severe dysplasia Anxiety Chronic kidney disease, stage 2 (mild) Morbid obesity Other and unspecified hyperlipidemia Essential hypertension Atherosclerotic cardiovascular disease Pituitary microadenoma Vitamin D deficiency Graves disease Post-surgical hypothyroidism Osteoarthritis GERD (gastroesophageal reflux disease) Leukopenia Cervical radiculitis Lumbar radiculopathy Pernicious anemia Obstructive sleep apnea Raynaud's phenomenon Pituitary microadenoma 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 Mother Stroke Sister Diabetes mellitus Maternal Grandmother Unknown family medical history Brother Cancer Sister No problems noted. Brother No problems noted. Daughter Healthy female Social History (Reviewed 05/09/23 @ 10:29 by HUSSAIN Whitehead Housing: Apartment Alcohol intake: current Alcohol intake frequency: holidays/special occasions only Patient Tobacco Use Status: Never used Tobacco e-Cigarette/Vaping Use: Never Used Second Hand Smoke Exposure: No Patient : No Current occupational status: disabled Cognitive needs: No Hearing needs: No Vision needs: No Female Reproductive History Menstrual Age of Menarche: 13 control method: permanent sterilization Total pregnancies: 3 Full term: 1 Number of Living Children: 1 Ab induced: 2 Date of last pap smear: 03/15/22 (negative) History of abnormal pap smear: Yes (2020 LGSIL +HPV) Date of Mammogram: 02/02/23 Review of Systems Const All systems reviewed & are unremarkable except as noted in HPI and below Card Reports as per HPI Resp Reports as per HPI GI Reports as per HPI and Reports no additional complaints Reports as per HPI Physical Exam Vital Signs: Last Vital Signs BP 114/78 05/09/23 10:25 BMI result Body Mass Index 44.2 Const General: cooperative, healthy appearing and comfortable Chest Chest palpation & inspection: normal inspection of the chest and normal palpation of entire chest wall Breast/axilla inspection: normal inspection of the breasts and normal inspection of the axillae Breast/axilla palpation: normal palpation of the breasts, normal palpation of the axillae and no axillary lymphadenopathy Resp Effort & Inspection: normal respiratory effort Auscultation: clear to auscultation bilaterally Percussion: percussion normal Cardio Palpation: normal PMI Rate: regular rate Rhythm: regular rhythm Heart sounds: no murmurs and no rubs Peripheral pulses: Peripheral pulses 2+ throughout GI Inspection: Yes normal to inspection Palpation (GI): Soft to palpation, nontender, no guarding, not rigid and No hepatosplenomegaly present Percussion: Yes normal to percussion Auscultation: normal bowel sounds Rectal Exam - Female: deferred General: Yes bladder normal to palpation External Female Exam: No lesion Speculum Exam - Vagina: normal appearance of the vagina, normal palpation, normal vaginal discharge and not erythematous Speculum Exam - Cervix: normal appearance of the cervix and normal palpation Bimanual exam- vagina & uterus: normal bimanual exam, normal palpation, uterine size normal, bladder normal to palpation, consistency normal and normal palpation Bimanual Exam- Adnexa, other: normal adnexae, no masses and no tenderness Assessment & Plan Assessment & Plan (1) Well woman exam: Comment: History of NIDHI 3 status post LEEP 03/07 03/08 Pap negative/HPV positive colpo/biopsy negative Code(s): Z01.419 - Encounter for gynecological examination (general) (routine) without abnormal findings Plan: Co testing done. Counseled the patient about the recommended dietary allowance of 1200 mg of Calcium & 600 IU of vitamin D. Instructions given to patient to schedule next screening Mammogram in 02/07. The patient was referred to GI for screening colonoscopy . The patient was instructed to perform monthly self-breast exams and schedule annual exam in a year. All questions answered and the patient verbalized understanding. Orders: Referrals Gastroenterology Referral Z12.11 - Encounter for screening for malignant neoplasm of colon Coding Level of Care Code Est Pt Prev Care 40-64y(05723) Diagnoses Well woman exam Z01.419
== END 2023-05-09 10:47 | disposition home or self-care (01) ==
LOC: HO.HWS 10:21
PROVIDERS: PCP Nurse Practitioner Family; Visit Provider Obstetrics & Gynecology
DX: Z01.419 Encounter for gynecological examination (general) (routine) without abnormal findings (principal)
CPT/HCPCS: 99396

== ENCOUNTER 2023-05-31 10:19 | Outpatient (REF) | payer OTHER, SELFPAY ==
--- NOTE | ~2023-05-31 | XR_ITS ---
EXAMINATION: XR HAND, RIGHT CLINICAL INFORMATION: Hand pain. COMPARISON: None available. TECHNIQUE: PA, lateral, and oblique views of the right hand. FINDINGS: Mild osteoarthritis at the first CMC joint is characterized primarily by small marginal osteophytes. Additional mild osteoarthritis is present at the index finger MCP joint as well as the interphalangeal joints at the thumb, index, and long fingers. No erosions. Bone mineralization is normal. Soft tissues are unremarkable. XR/XR hand RT min 3V IMPRESSION: Mild multifocal osteoarthritis in the right hand. No acute osseous abnormalities.
== END 2023-05-31 10:20 | disposition home or self-care (01) ==
LOC: HO.HOSX 10:19
PROVIDERS: Visit Provider Orthopaedic Surgery
DX: M79.641 Pain in right hand (principal)
CPT/HCPCS: 73130

== ENCOUNTER 2023-05-31 11:32 | Outpatient (REF) | payer OTHER, SELFPAY ==
[2023-05-31 11:50] LABS: MANUAL DIFF FLAG NO
[2023-05-31 12:59] LABS: Basophils Percent Auto 0.5 % (0-2); Eosinophils Percent Auto 0.5 % (0-4); Hematocrit 40.4 % (37.0-47.0); Imm Gran Abs Auto 0.02 X10*3/uL (0.00-0.03); Imm Gran Pct Auto 0.5 % (0.0-0.4); Lymphocytes Absolute Auto 2.2 X10*3/uL (1.2-4.9); Lymphocytes Percent Auto 52.5 % (20-40); Mean Corpuscular HGB Conc 32.2 g/dl (31.0-35.0); Mean Corpuscular Hemoglobin 27.5 pg (27.0-33.0); Mean Corpuscular Volume 85.6 fL (80.0-98.0); Monocytes Absolute Auto 0.3 X10*3/uL (0.1-1.2); Monocytes Percent Auto 7.3 % (2-11); Neutrophils Absolute Auto 1.7 x10*3/uL (2.0-8.3); Neutrophils Percent Auto 38.7 % (45-73); Platelet Count 226 X10*3/uL (160-400); Red Blood Count 4.72 X10*6/uL (4.20-5.50); White Blood Count 4.3 X10*3/uL (4.8-10.8)
[2023-05-31 13:10] LABS: Estimated Average Glucose 114 mg/dL; Hemoglobin A1c % 5.6 % (<6.0)
[2023-05-31 13:36] LABS: Anion Gap 13 (12-20); Blood Urea Nitrogen 16 mg/dL (9-16); Calcium 9.5 mg/dL (8.4-10.2); Carbon Dioxide 27 mmol/L (22-29); Chloride 107 mmol/L (96-108); Cholesterol 123 mg/dL (<200); Estimated Glomerular Filt Rate 43; HDL Cholesterol 39 mg/dL (>40); Iron 57 mcg/dL (30-160); LDL Cholesterol Calculated 66 mg/dL (<100); Percent Iron Saturation 20 % (15-50); Potassium 3.6 mmol/L (3.3-5.1); Sodium 143 mmol/L (135-145); Total Iron Binding Capacity 288 mcg/dL (228-428); Triglycerides 90 mg/dL (<150); Unsaturated Iron Binding 231 ug/dL; Uric Acid 6.2 mg/dL (2.4-5.7)
[2023-05-31 13:50] LABS: Vitamin D 25-OH Total 30.4 ng/mL (>30)
[2023-05-31 14:24] LABS: Appearance Urine Clear; Color Urine Yellow; Glucose Urine UA Negative (Negative); Leukocyte Esterase Urine Negative (Negative); Nitrite Urine Negative (Negative); PH 5.5 (5.0-9.0); UMIC TRIGGER UACC YES; Urine Blood Trace (Negative); Urine Ketones Negative (Negative); Urine Protein Negative (Neg-Trace)
[2023-05-31 14:29] LABS: Bacteria Urine None Seen (None Seen); Hyaline Casts Urine 0-2 /LPF (0-2); RBC Urine 0-2 /HPF (0-2); Squamous Epithelial Cell Urine 0-2 /HPF (0-2); WBC Urine 0-5 /HPF (0-5)
[2023-05-31 14:59] LABS: Creatinine Urine 49.87 mg/dL; Total Protein Urine Random < 7 mg/dL (<12)
== END 2023-05-31 11:33 | disposition home or self-care (01) ==
LOC: HO.LAB 11:32
PROVIDERS: PCP Nurse Practitioner Family; Visit Provider Physician Assistant
DX: I12.9 Hypertensive chronic kidney disease with stage 1 through stage 4 chronic kidney disease, or unspecified chronic kidney disease (principal); M79.642 Pain in left hand; M19.041 Primary osteoarthritis, right hand; B20 Human immunodeficiency virus [HIV] disease; N18.32 Chronic kidney disease, stage 3b; R80.9 Proteinuria, unspecified; R31.9 Hematuria, unspecified; E66.3 Overweight
CPT/HCPCS: 36415; 80051; 80061; 81001; 82306; 82310; 82565; 82570; 83036; 83540; 84156; 84520; 84550; 85025; 99212

== ENCOUNTER 2023-05-31 12:36 | Outpatient (AMB) | payer OTHER, SELFPAY ==
--- NOTE | 2023-05-31 12:37 | MHC.OFFVIS ---
Intake Vital Signs 05/31/23 12:50 Height 5 ft 1 in Weight 234 lb BMI 44.2 Intake Visit Reasons: New Prob- B/L hand pain and swelling, L>R/ Conf Intake Note: Miriam is a 57 year old right hand dominant female who presents today with complaints of bilateral hand pain & swelling. Right worse than Left. Her pain is felt along the 2nd and 3rd MC. She wakes up with an aching pain that improves with some warmth and ROM. This pain is still felt throughout the day, and can increased with grasping and lifting. Denies numbness and tingling. Allergies amlodipine [AMLODIPINE] Allergy (Unknown, Verified 05/09/23 10:27) RASH cephalexin [From KEFLEX] Allergy (Unknown, Verified 05/09/23 10:27) RASH levofloxacin [From LEVAQUIN] Allergy (Unknown, Verified 05/09/23 10:) RASH Pt states no food allergies Allergy (Unknown, Uncoded 05/09/23 10:27) Unknown HPI New Prob- B/L hand pain and swelling, L>R/ Conf HPI Details Miriam is a 57 year old right hand dominant woman who presents with complaints of right hand pain & swelling, particularly in the 2nd and 3rd MCP joints. She describes her pain as an aching sensation, worse in the mornings but present all day. She finds some relief from motion & warmth, and her pain is worse with grasping and lifting activities. She also reports her hand being somewhat swollen. She reports similar pain & swelling in her left hand, but says this is mild in comparison. She denies any numbness or tingling. She denies any personal or family history of rheumatoid arthritis or other conditions. She was found to be KALYANI positive in the past, but was told that she did not have RA or lupus.. She reports an old injury to her right middle finger, and says she has been unable to fully extend this finger PIP since her injury. She has HIV and sees Dr. Martin for this. She is not employed at this time. [facility] Medical History (Updated 05/31/23 @ 13:35 by Cole Ruano) NIDHI III (cervical intraepithelial neoplasia grade III) with severe dysplasia Anxiety Chronic kidney disease, stage 2 (mild) Morbid obesity Other and unspecified hyperlipidemia Essential hypertension Atherosclerotic cardiovascular disease Pituitary microadenoma Vitamin D deficiency Graves disease Post-surgical hypothyroidism Osteoarthritis GERD (gastroesophageal reflux disease) Leukopenia Cervical radiculitis Lumbar radiculopathy Pernicious anemia Obstructive sleep apnea Raynaud's phenomenon Pituitary microadenoma 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 Mother Stroke Sister Diabetes mellitus Maternal Grandmother Unknown family medical history Brother Cancer Sister No problems noted. Brother No problems noted. Daughter Healthy female Social History Housing: Apartment Alcohol intake: current Alcohol intake frequency: holidays/special occasions only Patient Tobacco Use Status: Never used Tobacco e-Cigarette/Vaping Use: Never Used Second Hand Smoke Exposure: No Current occupational status: disabled Cognitive needs: No Hearing needs: No Vision needs: No Female Reproductive History Menstrual Age of Menarche: 13 Review of Systems Const All systems reviewed & are unremarkable except as noted in HPI and below Physical Exam Vital Signs: BMI result Body Mass Index 44.2 Const General: cooperative, healthy appearing and no acute distress Orientation/consciousness: patient oriented x3 HEENT Head: Yes normocephalic and Yes atraumatic Eyes EOM: EOMs intact bilaterally Resp Effort & Inspection: normal respiratory effort and able to speak in complete sentences Cardio Jugular venous distension: no JVD Skin General skin exam: turgor normal Rashes: no rashes Neuro General: patient oriented x3 Extrem Other: Evaluation of Right Upper Extremity: The patient is alert, oriented, and in no acute distress Neuro: Median, Ulnar, Radial nerves motor and sensory intact and sensation is normal to the tips of all digits Vascular: Cap refill brisk ROM: She can make a fist and extend all her digits No locking or catching Smooth and painless wrist ROM Skin: No lacerations or abrasions. General: No Ecchymosis. No Erythema or evidence of infection. She has some mild swelling of the right 2nd and 3rd MCP joints. She has good active flexion and extension at these joints. Most tender to palpation over the dorsal aspect of the 2nd MCP joint. When asked her to actively extend all of her digits I noticed that the right small finger PIP joint has an extensor lag of perhaps 10 to 15 degrees. This is passively reducible to full extension. She can bring her fingers all close to a fist. Radiographs: 3 views of the right hand were taken and viewed by me today in clinic. They show no fractures or dislocations. She has some early arthritic changes in the 2nd and 3rd MCP joints Psych Appearance: grossly normal Affect: normal affect Attitude: cooperative Assessment & Plan Assessment & Plan (1) Osteoarthritis of right hand: Code(s): M19.041 - Primary osteoarthritis, right hand (2) HIV (human immunodeficiency virus infection): Comment: She is doing well Her blood pressure is under control and she has been taking Biktarvy regularly She is undetectable and has CD4 count 1089 and viral load undetectable on 12/21/2022. Code(s): B20 - Human immunodeficiency virus [HIV] disease Plan Assessment & Plan: 1. Right hand osteoarthritis Primarily in the 2nd and 3rd MCP joints I educated her about this condition I discussed non-operative treatment options I discussed activity modification, she should limit or avoid any activities which cause her pain, as well as the use of assistive devices to aid her with heavy gripping or twisting activities She should work on gentle ROM exercises at home to maintain range of motion If she starts noticing if she's having swelling and pain in the MCP joints of both hands or morning stiffness or other joints that she might want to talk to her primary about having some lab work done to assess for any rheumatologic conditions She can follow up prn If her symptoms persist or worsen we may consider a possible steroid injection or a referral to OT Scribed for Charo Cohen MD by Cole Ruano, medical administrative technician, on 05/31/23 at 1:40 PM, EST. Coding Level of Care Code New Pt Level 3 (47667) Diagnoses Osteoarthritis of right hand M19.041 HIV (human immunodeficiency virus infection) B20
[2023-05-31 12:50] VITALS: BMI 44.2
== END 2023-05-31 13:48 | disposition home or self-care (01) ==
PROVIDERS: PCP Nurse Practitioner Family; Visit Provider Orthopaedic Surgery
DX: M19.041 Primary osteoarthritis, right hand (principal); B20 Human immunodeficiency virus [HIV] disease
CPT/HCPCS: 99213

== ENCOUNTER 2023-06-21 09:56 | Outpatient (AMB) | payer OTHER, SELFPAY ==
--- NOTE | 2023-06-21 10:03 | A.OFFVIS_ITS ---
Intake Vital Signs 06/21/23 10:04 Height 5 ft 1 in Weight 231 lb 7.766 oz BMI 43.7 BP 112/90 H Blood Pressure Location Lt brachial Position Sitting Pulse 85 Intake Visit Reasons: 1 year follow up Intake Note: 1 year follow up w/ EKG Avionics Technician Required: No Accompanied by: Self / Same As Patient Allergies amlodipine [AMLODIPINE] Allergy (Unknown, Verified 06/21/23 10:04) RASH cephalexin [From KEFLEX] Allergy (Unknown, Verified 06/21/23 10:04) RASH levofloxacin [From LEVAQUIN] Allergy (Unknown, Verified 06/21/23 10:04) RASH Pt states no food allergies Allergy (Unknown, Uncoded 06/21/23 10:04) Unknown Medication List - Last Reconciled 06/21/23 by Cristiano Reyez MD albuterol sulfate 90 mcg/actuation (Ventolin HFA) 1 inh inhalation QID PRN alirocumab (Praluent Pen) 75 mg subcut Q2W 90 days aspirin 81 mg PO DAILY 90 days atorvastatin 80 mg PO DAILY peaffaqad-hcddmqjq-humcneq ala 50-200-25 mg (Biktarvy) 1 tab PO DAILY 90 days citalopram 20 mg PO DAILY PRN ezetimibe 10 mg PO DAILY levothyroxine 88 mcg PO DAILY lorazepam 1 mg PO BEDTIME PRN metoprolol succinate ER 100 mg PO BID nifedipine ER 30 mg PO DAILY spironolactone 50 mg PO BID 90 days HPI HPI Comments History of Present Illness Details Miriam returns for follow-up regarding coronary disease, hypertension, dyslipidemia. Overall, no specific cardiac complaints. No angina or shortness of breath or in fact anything cardiac sounding. 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 Mother Stroke Sister Diabetes mellitus Maternal Grandmother Unknown family medical history Brother Cancer Sister No problems noted. Brother No problems noted. Daughter Healthy female Social History Housing: Apartment Alcohol intake: current Alcohol intake frequency: holidays/special occasions only Patient Tobacco Use Status: Never used Tobacco e-Cigarette/Vaping Use: Never Used Second Hand Smoke Exposure: No Current occupational status: disabled Cognitive needs: No Hearing needs: No Vision needs: No Female Reproductive History Menstrual Age of Menarche: 13 Review of Systems Const Denies weakness ENT Denies dizziness Card Denies chest pain, Denies chest pain with activity, Denies syncope, Denies rapid heart rate, Denies pedal edema, Denies edema, Denies leg edema, Denies lightheadedness, Denies palpitations, Denies dyspnea, Denies dyspnea on exertion and Denies orthopnea Resp Denies cough, Denies dyspnea and Denies dyspnea on exertion GI Denies hematochezia and Denies change in stool character Musc Denies abnormal gait, Denies muscle cramps, Denies muscle weakness, Denies numbness, Denies radiating pain into limb and Denies tingling Neuro Denies abnormal gait, Denies dizziness, Denies syncope, Denies numbness, Denies tingling and Denies weakness Endo Denies palpitations Physical Exam Vital Signs: Last Vital Signs Pulse 85 06/21/23 10:04 BP 112/90 H 06/21/23 10:04 BMI result Body Mass Index 43.7 Const General: comfortable and no acute distress Orientation/consciousness: patient oriented x3 HEENT Other: Unremarkable Head: Yes normal to inspection Neck Neck: Yes normal visual inspection Chest Chest palpation & inspection: normal inspection of the chest Resp Auscultation: clear to auscultation bilaterally Cardio Palpation: normal PMI Heart sounds: S1 normal heart sound present, S2 normal heart sound present, no gallops, no murmurs and no rubs GI Palpation (GI): Soft to palpation Back/Spine/Pelvis Other: unremarkable Skin General skin exam: no rashes or lesions noted Neuro General: patient oriented x3 Extrem General: Yes normal to inspection Psych Mental Status: mental status grossly normal Office Procedures EKG Details: EKG with sinus rhythm at 85/Min; no significant ST-T changes and otherwise [place]remark[place] [address]-Cpsopgixlfhwdvvwm, Complete Assessment & Plan Assessment & Plan (1) Atherosclerotic cardiovascular disease: Code(s): I25.10 - Atherosclerotic heart disease of [place] coronary artery without angina pectoris Plan: In prior coronary CTA, she had mild mid to distal left main plaque and moderate plaque in the proximal LAD; mild plaque in circumflex. Clinically, no angina. She can remain on aspirin. (2) Essential hypertension: Code(s): I10 - Essential (primary) hypertension Plan: In the past, we had a lot of difficulty controlling blood pressures but more recently generally okay. Diastolic slightly on the higher side today but previous readings within range. No changes. (3) Other and unspecified hyperlipidemia: Code(s): E78.5 - Hyperlipidemia, unspecified Plan: She is on statins, Zetia, Praluent. Stable lipids. (4) Morbid obesity: Code(s): E66.01 - Morbid (severe) obesity due to excess calories Plan: Weight has been a long-term issue. Has been discussed numerous times including today. (5) Obstructive sleep apnea: Code(s): G47.33 - Obstructive sleep apnea (adult) (pediatric) Plan: CPAP. Coding Level of Care Code Est Pt Level 4 (51120) Diagnoses Atherosclerotic cardiovascular disease I25.10 Essential hypertension I10 Other and unspecified hyperlipidemia E78.5 Morbid obesity E66.01 Obstructive sleep apnea G47.33 CPT Codes EKG - CPT: 43058-Limyxsrpzitiqaetr, Complete ([id number])
[2023-06-21 10:04] VITALS: BP 112/90; PULSE 85; BMI 43.7
== END 2023-06-21 10:38 | disposition home or self-care (01) ==
PROVIDERS: PCP Nurse Practitioner Family; Visit Provider Internal Medicine
DX: I25.10 Atherosclerotic heart disease of native coronary artery without angina pectoris (principal); I10 Essential (primary) hypertension; E78.5 Hyperlipidemia, unspecified; E66.01 Morbid (severe) obesity due to excess calories; G47.33 Obstructive sleep apnea (adult) (pediatric)
CPT/HCPCS: 93010; 99214

== ENCOUNTER → 2023-06-21 09:56 | Outpatient (BNVA) | payer OTHER, SELFPAY | PROVIDERS: PCP Nurse Practitioner Family; Visit Provider Internal Medicine | DX: I25.10 Atherosclerotic heart disease of native coronary artery without angina pectoris (principal); I10 Essential (primary) hypertension; E78.5 Hyperlipidemia, unspecified; E66.01 Morbid (severe) obesity due to excess calories; G47.33 Obstructive sleep apnea (adult) (pediatric); Z68.41 Body mass index [BMI] 40.0-44.9, adult | CPT/HCPCS: 93005; 99212 ==

== ENCOUNTER 2023-07-11 14:24 | Outpatient (REF) | payer OTHER, SELFPAY ==
[2023-07-11 14:55] LABS: MANUAL DIFF FLAG NO
[2023-07-11 15:43] LABS: Basophils Percent Auto 0.4 % (0-2); Eosinophils Absolute Auto 0.1 X10*3/uL (0.0-0.4); Eosinophils Percent Auto 1.3 % (0-4); Hematocrit 41.9 % (37.0-47.0); Hemoglobin 13.3 g/dl (12.0-16.0); Imm Gran Abs Auto 0.02 X10*3/uL (0.00-0.03); Imm Gran Pct Auto 0.4 % (0.0-0.4); Lymphocytes Absolute Auto 2.7 X10*3/uL (1.2-4.9); Lymphocytes Percent Auto 55.7 % (20-40); Mean Corpuscular HGB Conc 31.7 g/dl (31.0-35.0); Mean Corpuscular Hemoglobin 27.5 pg (27.0-33.0); Mean Corpuscular Volume 86.6 fL (80.0-98.0); Mean Platelet Volume 10.4 fL (9.4-12.3); Monocytes Absolute Auto 0.3 X10*3/uL (0.1-1.2); Monocytes Percent Auto 7.1 % (2-11); Neutrophils Absolute Auto 1.7 x10*3/uL (2.0-8.3); Neutrophils Percent Auto 35.1 % (45-73); Platelet Count 228 X10*3/uL (160-400); Red Blood Count 4.84 X10*6/uL (4.20-5.50); Red Cell Distribution Width 13.9 % (11.0-16.0); White Blood Count 4.8 X10*3/uL (4.8-10.8)
[2023-07-11 15:56] LABS: Alanine Aminotransferase 18 U/L (0-31); Albumin Level 4.1 g/dL (3.5-5.0); Alkaline Phosphatase 143 U/L (39-117); Anion Gap 11 (12-20); Aspartate Amino Transferase 20 U/L (5-31); Bilirubin Direct 0.3 mg/dL (0.0-0.5); Bilirubin Total 0.7 mg/dL (0.0-1.0); Blood Urea Nitrogen 15 mg/dL (9-16); Calcium 9.1 mg/dL (8.4-10.2); Carbon Dioxide 24 mmol/L (22-29); Chloride 108 mmol/L (96-108); Estimated Glomerular Filt Rate 49; Glucose Random 80 mg/dL (60-115); Potassium 3.4 mmol/L (3.3-5.1); Sodium 140 mmol/L (135-145); Total Protein 7.6 g/dL (6.5-8.0)
[2023-07-11 16:00] LABS: Appearance Urine Clear; Color Urine Yellow; Glucose Urine UA Negative (Negative); Leukocyte Esterase Urine Negative (Negative); Nitrite Urine Negative (Negative); UMIC TRIGGER UACC YES; Urine Blood Moderate (2+) (Negative); Urine Ketones Negative (Negative); Urine Protein Negative (Neg-Trace)
[2023-07-11 16:07] LABS: Bacteria Urine None Seen (None Seen); RBC Urine 0-2 /HPF (0-2); Squamous Epithelial Cell Urine 0-2 /HPF (0-2); WBC Urine 0-5 /HPF (0-5)
[2023-07-12 03:43] LABS: Syphilis Screen Nonreactive (Nonreactive)
[2023-07-12 13:54] LABS: Absolute CD3 Count 2260 cells/uL (840-3060); Absolute CD4 Count 1067 cells/uL (490-1740); Absolute CD8 Count 1234 cells/uL (180-1170); Absolute Lymphocytes 2887 cells/uL (850-3900); CD4 CD8 Ratio 0.86 (0.86-5.00); Percent CD3 Cells 78 % (57-85); Percent CD4 Cells 37 % (30-61); Percent CD8 Cells 43 % (12-42)
[2023-07-13 17:28] LABS: HIV RNA PCR Qn Copies NOT DETECTED copies/mL (NOT DETECTED); HIV RNA PCR Qn Log Copies NOT DETECTED (NOT DETECTED)
== END 2023-07-11 14:25 | disposition home or self-care (01) ==
LOC: HO.LAB 14:24
PROVIDERS: Absent Provider Internal Medicine; PCP Nurse Practitioner Family; Visit Provider Nurse Practitioner Family
DX: B20 Human immunodeficiency virus [HIV] disease (principal); R31.29 Other microscopic hematuria; R30.0 Dysuria
CPT/HCPCS: 36415; 80048; 80076; 81001; 81003; 85025; 86359; 86360; 86780; 87536

== ENCOUNTER 2023-07-12 10:28 | Outpatient (REF) | payer OTHER, SELFPAY ==
[2023-07-12 11:40] LABS: MANUAL DIFF FLAG NO
[2023-07-12 12:02] LABS: Urine Cytology See Pathology rpt
[2023-07-12 12:09] LABS: Basophils Percent Auto 0.3 % (0-2); Eosinophils Percent Auto 0.8 % (0-4); Hematocrit 40.6 % (37.0-47.0); Hemoglobin 13.3 g/dl (12.0-16.0); Imm Gran Abs Auto 0.01 X10*3/uL (0.00-0.03); Imm Gran Pct Auto 0.3 % (0.0-0.4); Lymphocytes Absolute Auto 1.9 X10*3/uL (1.2-4.9); Lymphocytes Percent Auto 50.5 % (20-40); Mean Corpuscular HGB Conc 32.8 g/dl (31.0-35.0); Mean Corpuscular Hemoglobin 27.7 pg (27.0-33.0); Mean Corpuscular Volume 84.6 fL (80.0-98.0); Mean Platelet Volume 10.5 fL (9.4-12.3); Monocytes Absolute Auto 0.2 X10*3/uL (0.1-1.2); Monocytes Percent Auto 5.8 % (2-11); Neutrophils Absolute Auto 1.6 x10*3/uL (2.0-8.3); Neutrophils Percent Auto 42.3 % (45-73); Platelet Count 229 X10*3/uL (160-400); Red Cell Distribution Width 13.7 % (11.0-16.0); White Blood Count 3.8 X10*3/uL (4.8-10.8)
[2023-07-12 12:12] LABS: Appearance Urine Clear; Color Urine Yellow; Glucose Urine UA Negative (Negative); Leukocyte Esterase Urine Negative (Negative); Nitrite Urine Negative (Negative); PH 5.5 (5.0-9.0); UMIC TRIGGER UA YES; UMIC TRIGGER UACC YES; Urine Blood Small (1+) (Negative); Urine Ketones Negative (Negative); Urine Protein Negative (Neg-Trace)
[2023-07-12 12:29] LABS: Bacteria Urine None Seen (None Seen); Hyaline Casts Urine 0-2 /LPF (0-2); RBC Urine 0-2 /HPF (0-2); Squamous Epithelial Cell Urine 0-2 /HPF (0-2); WBC Urine 0-5 /HPF (0-5)
[2023-07-12 13:08] LABS: Alanine Aminotransferase 18 U/L (0-31); Albumin Level 4.2 g/dL (3.5-5.0); Alkaline Phosphatase 145 U/L (39-117); Anion Gap 11 (12-20); Aspartate Amino Transferase 21 U/L (5-31); Bilirubin Total 0.9 mg/dL (0.0-1.0); Blood Urea Nitrogen 14 mg/dL (9-16); Calcium 9.1 mg/dL (8.4-10.2); Carbon Dioxide 25 mmol/L (22-29); Chloride 108 mmol/L (96-108); Cholesterol 122 mg/dL (<200); Estimated Glomerular Filt Rate 53; Glucose Fasting 92 mg/dL (60-99); HDL Cholesterol 43 mg/dL (>40); LDL Cholesterol Calculated 62 mg/dL (<100); Potassium 3.1 mmol/L (3.3-5.1); Sodium 141 mmol/L (135-145); Total Protein 7.7 g/dL (6.5-8.0); Triglycerides 87 mg/dL (<150)
[2023-07-12 13:13] LABS: TSH reflex Free T4 4.56 uIU/mL (0.32-4.0)
[2023-07-12 14:29] LABS: Free T4 (Free Thyroxine) 1.01 ng/dL (0.71-1.85)
== END 2023-07-12 10:29 | disposition home or self-care (01) ==
LOC: HO.LAB 10:28
PROVIDERS: Absent Provider Nurse Practitioner Family; PCP Nurse Practitioner Family; Visit Provider Orthopaedic Surgery
DX: I10 Essential (primary) hypertension (principal); R31.29 Other microscopic hematuria; M17.0 Bilateral primary osteoarthritis of knee; Z79.899 Other long term (current) drug therapy
CPT/HCPCS: 36415; 80053; 80061; 81001; 84439; 84443; 85025; 87086; 88112; 99212

== ENCOUNTER 2023-07-12 10:28 | Outpatient (AMB) | payer OTHER, SELFPAY ==
[2023-07-12 10:37] VITALS: BMI 43.6
--- NOTE | 2023-07-12 10:37 | MHC.OFFVIS ---
Intake Vital Signs 07/12/23 10:37 Height 5 ft 1 in Weight 231 lb BMI 43.6 Intake Visit Reasons: OV-Bilateral Knee pain Intake Note: Miriam is a 57 year old female who presents with bilateral knee pain. The patient reports minimal discomfort in her left knee today. She did get Durolane viscosupplement injections given into both of her knees on 03/15/2023. She states that her right knee pain has returned. She describes her right knee pain as sharp in nature. She has had cortisone injections in the past which gave her no relief. She would like to hold off on right total knee replacement surgery for as long as possible. She has done physical therapy exercises which aggravated her pain. She has also tried Tylenol and anti-inflammatory medicines which gave her minimal relief. Patient reports bilateral knee Durolane injections on 03/15/2023 and state the gave little relief. She state her Right posterior knee is more painful after sitting. Allergies amlodipine [AMLODIPINE] Allergy (Unknown, Verified 07/12/23 10:42) RASH cephalexin [From KEFLEX] Allergy (Unknown, Verified 07/12/23 10:42) RASH levofloxacin [From LEVAQUIN] Allergy (Unknown, Verified 07/12/23 10:42) RASH Pt states no food allergies Allergy (Unknown, Uncoded 06/21/23 10:04) Unknown Medication List - Last Reconciled 07/12/23 by Kp Cannon MD albuterol sulfate 90 mcg/actuation (Ventolin HFA) 1 inh inhalation QID PRN alirocumab (Praluent Pen) 75 mg subcut Q2W 90 days aspirin 81 mg PO DAILY 90 days atorvastatin 80 mg PO DAILY qifgosgey-bwaaiuud-qiuaajz ala 50-200-25 mg (Biktarvy) 1 tab PO DAILY 90 days citalopram 20 mg PO DAILY PRN ezetimibe 10 mg PO DAILY levothyroxine 88 mcg PO DAILY lorazepam 1 mg PO BEDTIME PRN metoprolol succinate ER 100 mg PO BID nifedipine ER 30 mg PO DAILY spironolactone 50 mg PO BID 90 days [facility] Medical History (Updated 07/11/23 @ 18:00 by Kenroy Freeman, DIRECTOR OF MATERNITY SERVICES-) 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 Anxiety Chronic kidney disease, stage 2 (mild) Morbid obesity Other and unspecified hyperlipidemia Essential hypertension Atherosclerotic cardiovascular disease Pituitary microadenoma Vitamin D deficiency Graves disease Post-surgical hypothyroidism Osteoarthritis GERD (gastroesophageal reflux disease) Leukopenia Cervical radiculitis Lumbar radiculopathy Pernicious anemia Obstructive sleep apnea Raynaud's phenomenon Pituitary microadenoma 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 Mother Stroke Sister Diabetes mellitus Maternal Grandmother Unknown family medical history Brother Cancer Sister No problems noted. Brother No problems noted. Daughter Healthy female Social History Housing: Apartment Alcohol intake: current Alcohol intake frequency: holidays/special occasions only Patient Tobacco Use Status: Never used Tobacco e-Cigarette/Vaping Use: Never Used Second Hand Smoke Exposure: No Current occupational status: disabled Cognitive needs: No Hearing needs: No Vision needs: No Female Reproductive History Menstrual Age of Menarche: 13 Physical Exam Vital Signs: BMI result Body Mass Index 43.6 Const Other: Bilateral lower extremity examination shows good capillary refill, no skin lesions noted, normal sensation light touch Extrem Other: Bilateral lower extremity examination shows good capillary refill, no skin lesions noted, normal sensation light touch Right knee examination shows a minimal effusion, palpable crepitus with range of motion, pain with range of motion, no instability Left knee examination shows a mild effusion, mild crepitus with range of motion, no instability Assessment & Plan Assessment & Plan (1) Arthritis of right knee: Code(s): M17.11 - Unilateral primary osteoarthritis, right knee (2) Arthritis of left knee: Code(s): M17.12 - Unilateral primary osteoarthritis, left knee Plan Ms. Chacon presents with bilateral knee pains due to degenerative joint disease. At this point the patient's left knee discomfort is tolerable to her. Right knee pain has gotten worse. She wishes to hold off on total knee replacement surgery for as long as possible. I agree with this plan. She has not gotten good relief from cortisone injections in the past. She has gotten good relief from viscosupplementation injections. Thus, I will see whether or not her insurance company will cover another viscosupplementation injection for her right knee. I will see her back once the injection is available. Feel free to call me at any time should questions regarding her orthopedic management arise. I spent 22 minutes in reviewing the patient's records and imaging studies, seeing the patient and documenting in the medical record. Coding Level of Care Code Est Pt Level 2 (99930) Diagnoses Arthritis of right knee M17.11 Arthritis of left knee M17.12
== END 2023-07-12 11:08 | disposition home or self-care (01) ==
PROVIDERS: PCP Nurse Practitioner Family; Visit Provider Orthopaedic Surgery
DX: M17.0 Bilateral primary osteoarthritis of knee (principal)
CPT/HCPCS: 99213

== ENCOUNTER 2023-07-18 10:00 | Outpatient (REF) | payer OTHER, SELFPAY ==
[2023-07-18 10:54] LABS: Alanine Aminotransferase 18 U/L (0-31); Alkaline Phosphatase 141 U/L (39-117); Anion Gap 11 (12-20); Aspartate Amino Transferase 22 U/L (5-31); Bilirubin Total 0.7 mg/dL (0.0-1.0); Blood Urea Nitrogen 14 mg/dL (9-16); Calcium 9.1 mg/dL (8.4-10.2); Carbon Dioxide 26 mmol/L (22-29); Chloride 107 mmol/L (96-108); Estimated Glomerular Filt Rate 49; Glucose Random 100 mg/dL (60-115); Potassium 3.3 mmol/L (3.3-5.1); Sodium 141 mmol/L (135-145); Total Protein 7.3 g/dL (6.5-8.0)
[2023-07-18 11:13] LABS: Appearance Urine Clear; Color Urine Yellow; Glucose Urine UA Negative (Negative); Leukocyte Esterase Urine Negative (Negative); Nitrite Urine Negative (Negative); PH 5.5 (5.0-9.0); Specific Gravity - Urine 1.015 (1.005-1.025); UMIC TRIGGER UACC YES; Urine Blood Moderate (2+) (Negative); Urine Ketones Negative (Negative); Urine Protein Negative (Neg-Trace)
[2023-07-18 11:37] LABS: Bacteria Urine None Seen (None Seen); Hyaline Casts Urine 0-2 /LPF (0-2); RBC Urine 0-2 /HPF (0-2); Squamous Epithelial Cell Urine 0-2 /HPF (0-2); WBC Urine 0-5 /HPF (0-5)
== END 2023-07-18 10:01 | disposition home or self-care (01) ==
LOC: HO.LAB 10:00
PROVIDERS: PCP Nurse Practitioner Family; Visit Provider Nurse Practitioner Family
DX: E87.6 Hypokalemia (principal)
CPT/HCPCS: 36415; 80053; 81001; 81003

== ENCOUNTER 2023-07-18 11:26 | Outpatient (AMB) | payer OTHER, SELFPAY ==
--- NOTE | 2023-07-18 11:33 | A.OFFPC_ITS ---
Vital Signs 07/18/23 11:37 Height 5 ft 1 in Weight 233 lb BMI 44.0 BP 116/70 Blood Pressure Location Rt brachial Position Sitting Pulse 74 Pulse Source Pulse Oximeter Pulse Oximetry (%) 100 Oxygen Delivery Method Room Air Intake Visit Reasons: PE Intake Note: Patient here for physical exam. Pap:05/09/23 Mammo: 02/02/23- 1 yr f/u colonoscopy: not yet booked Allergies amlodipine [AMLODIPINE] Allergy (Unknown, Verified 07/18/23 15:23) RASH cephalexin [From KEFLEX] Allergy (Unknown, Verified 07/18/23 15:23) RASH levofloxacin [From LEVAQUIN] Allergy (Unknown, Verified 07/18/23 15:23) RASH Pt states no food allergies Allergy (Unknown, Uncoded 07/18/23 15:23) Unknown Medication List - Last Reconciled 07/18/23 by Kenroy Freeman, CAKE [employer]ER- albuterol sulfate 90 mcg/actuation (Ventolin HFA) 1 inh inhalation QID PRN alirocumab (Praluent Pen) 75 mg subcut Q2W 90 days aspirin 81 mg PO DAILY 90 days atorvastatin 80 mg PO DAILY vmcechvvh-elnkxhfn-dprnopt ala 50-200-25 mg (Biktarvy) 1 tab PO DAILY 90 days citalopram 20 mg PO DAILY PRN ezetimibe 10 mg PO DAILY levothyroxine 88 mcg PO DAILY lorazepam 1 mg PO BEDTIME PRN metoprolol succinate ER 100 mg PO BID nifedipine ER 30 mg PO DAILY spironolactone 50 mg PO BID 90 days Tobacco use date assessed: 07/18/23 Dental Screening Dental Screen Date: 07/18/23 Did you have a dental visit in the last 12 months?: Yes Did you have a dental problem in the last 6 months where you did not have access to dental care?: No Was dental information given to patient?: Patient has dentist HPI PE HPI Details Pt is here for a PE. Labs were already performed. Colon screen is up to date. Mammo is up to date. Has a box sealing machine feeder. Pt follows up with cardiology, nephrology, urology, infectious disease, pulmonology, and endocrinology. TSH slightly up. on 88mcg, recommended incorporating , once a week, 100mcg. 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 Mother Stroke Sister Diabetes mellitus Maternal Grandmother Unknown family medical history Brother Cancer Sister No problems noted. Brother No problems noted. Daughter Healthy female Social History Housing: Apartment Alcohol intake: current Alcohol intake frequency: holidays/special occasions only Patient Tobacco Use Status: Never used Tobacco e-Cigarette/Vaping Use: Never Used Second Hand Smoke Exposure: No Current occupational status: disabled Cognitive needs: No Hearing needs: No Vision needs: No Female Reproductive History Menstrual Age of Menarche: 13 Questionnaire PHQ-9 Over the last 2 weeks, how often have you been bothered by any of the following problems? 1. Little interest or pleasure in doing things: several days 2. Feeling down, depressed, or hopeless: not at all 3. Trouble falling or staying asleep, or sleeping too much: nearly every day 4. Feeling tired or having little energy: several days 5. Poor appetite or overeating: not at all 6. Feeling bad about yourself - or that you are a failure or have let yourself or your family down: not at all 7. Trouble concentrating on things, such as reading the newspaper or watching television: not at all 8. Moving or speaking so slowly that other people could have noticed. Or the opposite - being so fidgety or restless that you have been moving around a lot more than usual: not at all 9. Thoughts that you would be better off or of hurting yourself in some way: not at all Total score: 5 Depression Screening Interpretation: Negative Depression Screening Done: Yes 17875 - PHQ-9 Billing: Yes Source: Developed by Drs. Bud Mosquera, Glory Bullock, Osmar Chamberlain and colleagues, with an educational renetta from [employer]. Thrive Questionnaire Date Thrive assessed: 07/18/23 I am a: Patient What is your living situation today?: I have a steady place to live Within the past 12 months, did the food you bought not last and you didn't have the money to get more?: Sometimes True Within the past 12 months, did you worry whether your food would run out before you got money to buy more?: Never true Do you have trouble paying for medicines?: No Do you have trouble getting transportation to medical appointments?: No Do you have trouble paying your heating and electricity bill?: No Do you have trouble taking care of your child, family member or friend?: No Do you have trouble with day-to-day activities such as bathing, preparing meals, shopping, managing finances, etc.?: No Are you currently unemployed and looking for a job?: No Are you interested in more education?: No Currently or been in a relationship where the following occur: I choose not to answer this question THRIVE Score: 1 AUDIT C Alcohol Use Questionnaire (AUDIT-C) 1. How often do you have a drink containing alcohol?: Monthly or less 2. How many drinks containing alcohol do you have on a typical day when you are drinking?: 1 or 2 3. How often do you have six or more drinks on one occasion?: Never Total Score: 1 Score Reviewed/Action Taken: No BRITTNEY-7 AMB Questionnaire BRITTNEY-7 Date BRITTNEY - 7 assessed: 07/18/23 Feeling nervous, anxious, or on edge: 0 = Not at all Not being able to stop or control worryin = Not at all Worrying too much about different things: 0 = Not at all Trouble relaxin = Not at all Being so restless that it is hard to sit still: 0 = Not at all Becoming easily annoyed or irritable: 0 = Not at all Feeling afraid as if something awful might happen: 0 = Not at all Total BRITTNEY-7 score (0-4 normal; 5-9 mild; 10-14 moderate; 15-21 severe): 0 Source: Developed by Drs. Bud Mosquera, Glory Bullock, Osmar Chamberlain and colleagues, with an educational renetta from [employer]. BRITTNEY-7 Assessment Billing BRITTNEY-7 Assessment Tool: BRITTNEY-7 Assessment 57312 Review of Systems Const Denies chills and Denies fever(s) Eyes Denies blurry vision ENT Denies vertigo, Denies dizziness and Denies sore throat Card Denies chest pain at rest, Denies chest pain with activity, Denies diaphoresis, Denies dyspnea and Denies dyspnea on exertion Resp Denies cough, Denies dyspnea, Denies dyspnea on exertion and Denies wheezing GI Denies abdominal pain, Denies melena, Denies hematochezia, Denies constipation, Denies diarrhea and Denies loose stools Denies hematuria Musc Denies numbness and Denies tingling Skin/Breast Denies lesions Neuro Denies vertigo, Denies dizziness, Denies numbness and Denies tingling Psych Denies anxiety, Denies depression, Denies homicidal ideation, Denies suicidal ideation and Denies other (substance abuse) Aller/Immun Denies wheezing Physical exam (Primary Care) Vital Signs: Last Vital Signs Pulse 74 07/18/23 11:37 BP 116/70 07/18/23 11:37 Pulse Ox 100 07/18/23 11:37 Oxygen Delivery Method Room Air 07/18/23 11:37 BMI result Body Mass Index 44.0 Tobacco/Smoking Status: Tobacco use Status Tobacco use date assessed 07/18/23 07/18/23 11:43 Patient Tobacco Use Status Never used Tobacco 07/18/23 11:34 e-Cigarette/Vaping Use Never Used 07/18/23 11:34 PHQ-9: PHQ-9 Score PHQ-9: Total score 5 07/18/23 13:00 Depression Screening Interpretation: Negative Thrive Assessment: Date of Thrive Assessment Date Thrive assessed 07/18/23 07/18/23 13:00 Currently or been in a relationship where the following occur: I choose not to answer this question Const General: cooperative Nutritional Appearance: obese morbidly obese Orientation/consciousness: patient oriented x3 HENMT Head: Yes normal to inspection, Yes normocephalic and Yes atraumatic Ears: TM's normal bilaterally Eyes General: appearance normal, both eyes and all related structures Alignment and Position: alignment normal and position normal Neck Neck: Yes normal visual inspection and Yes no lymphadenopathy Thyroid: Thyroid normal Resp Effort & Inspection: normal respiratory effort Auscultation: clear to auscultation bilaterally Cardio Rate: regular rate Rhythm: regular rhythm Heart sounds: S1 normal heart sound present, S2 normal heart sound present and no murmurs GI Palpation (GI): Soft to palpation and nontender Auscultation: normal bowel sounds Skin Rashes: no rashes Neuro General: patient oriented x3, moves all extremities, no focal motor deficits and deep tendon reflexes 2+ bilaterally Romberg Test: Negative Psych Appearance: grossly normal Mental Status: mental status grossly normal Speech and movement: Normal speech and movement present Affect: normal affect Attitude: cooperative Thought process: Normal thought process present Thought content: Normal thought content present Insight: Good insight present (Psych) Judgement: Good judgement present (Psych) Assessment and Plan Assessment & Plan (1) Graves disease: Code(s): E05.00 - Thyrotoxicosis with diffuse goiter without thyrotoxic crisis or storm Plan: recommend 88mcg of levo 6 days a week, and 1 day a week 100mcg tab. repeat TSH in 2 months (2) Physical exam: Code(s): Z00.00 - Encounter for general adult medical examination without abnormal findings Orders: Orders Complete Blood Count Auto Diff 2 Months E05.00 - Thyrotoxicosis with diffuse goiter without thyrotoxic crisis or storm TSH reflex Free T4 2 Months E05.00 - Thyrotoxicosis with diffuse goiter without thyrotoxic crisis or storm Coding Level of Care Code Est Pt Prev Care 40-64y(81311) Diagnoses Graves disease E05.00 Physical exam Z00.00 Additional Codes BRITTNEY-7 Assessment Billing - BRITTNEY-7 Assessment Tool: BRITTNEY-7 Assessment 37302 ([id number])
[2023-07-18 11:37] VITALS: BP 116/70; PULSE 74; O2SAT 100; BMI 44.0
== END 2023-07-18 15:54 | disposition home or self-care (01) ==
PROVIDERS: Visit Provider Nurse Practitioner Family
DX: E05.00 Thyrotoxicosis with diffuse goiter without thyrotoxic crisis or storm (principal); Z00.00 Encounter for general adult medical examination without abnormal findings
CPT/HCPCS: 99396

== ENCOUNTER 2023-07-19 11:04 | Outpatient (AMB) | payer OTHER, SELFPAY ==
[2023-07-19 11:18] VITALS: PULSE 86; O2SAT 98; BMI 44.4
--- NOTE | 2023-07-19 11:18 | A.OFFVIS_ITS ---
Intake Vital Signs 07/19/23 11:18 Height 5 ft 1 in Weight 235 lb BMI 44.4 Pulse 86 Pulse Source Pulse Oximeter Pulse Oximetry (%) 98 Intake Visit Reasons: 6month follow up HIV Allergies amlodipine [AMLODIPINE] Allergy (Unknown, Verified 07/25/23 18:01) RASH cephalexin [From KEFLEX] Allergy (Unknown, Verified 07/25/23 18:01) RASH levofloxacin [From LEVAQUIN] Allergy (Unknown, Verified 07/25/23 18:01) RASH HPI 6month follow up HIV HPI Details She is doing well. She has CD4 count of 1067 and viral load undetectable. She has no complaints. [facility], [facility] Medical History 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 Anxiety Chronic kidney disease, stage 2 (mild) Morbid obesity Other and unspecified hyperlipidemia Essential hypertension Atherosclerotic cardiovascular disease Pituitary microadenoma Vitamin D deficiency Graves disease Post-surgical hypothyroidism Osteoarthritis GERD (gastroesophageal reflux disease) Leukopenia Cervical radiculitis Lumbar radiculopathy Pernicious anemia Obstructive sleep apnea Raynaud's phenomenon Pituitary microadenoma 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 Mother Stroke Sister Diabetes mellitus Maternal Grandmother Unknown family medical history Brother Cancer Sister No problems noted. Brother No problems noted. Daughter Healthy female Social History Housing: Apartment Alcohol intake: current Alcohol intake frequency: holidays/special occasions only Patient Tobacco Use Status: Never used Tobacco e-Cigarette/Vaping Use: Never Used Second Hand Smoke Exposure: No Current occupational status: disabled Cognitive needs: No Hearing needs: No Vision needs: No Female Reproductive History Menstrual Age of Menarche: 13 Review of Systems Const All systems reviewed & are unremarkable except as noted in HPI and below Physical Exam Vital Signs: Last Vital Signs Pulse 86 07/19/23 11:18 Pulse Ox 98 07/19/23 11:18 BMI result Body Mass Index 44.4 Const General: cooperative HEENT Head: Yes normal to inspection Face and sinus: Yes normal facial exam Mouth: Normal oral and palatal mucosa present Teeth and gingiva: dentition normal Eyes General: appearance normal, both eyes and all related structures Pupils: Equal, round and reactive pupils present Resp Effort & Inspection: normal respiratory effort Cardio Rate: regular rate Rhythm: regular rhythm GI Palpation (GI): Soft to palpation and nontender General: Yes no CVA tenderness Back/Spine/Pelvis Back: no CVA tenderness Skin General skin exam: no rashes or lesions noted Neuro General: moves all extremities Cranial nerves: Yes Equal, round and reactive pupils present Extrem General: Yes normal to inspection Psych Appearance: grossly normal Assessment & Plan Assessment & Plan (1) HIV (human immunodeficiency virus infection): Comment: She is doing well Her blood pressure is under control and she has been taking Biktarvy regularly She is undetectable and has CD4 count 1067 and viral load undetectable on 07/11/2023. Code(s): B20 - Human immunodeficiency virus [HIV] disease Plan: Would continue Biktarvy. Check CD4 count and viral load in six months. Renewed Biktarvy for six months. Orders: Orders Basic Metabolic Panel 6 Months B20 - Human immunodeficiency virus [HIV] disease HIV-1 RNA QN PCR Expanded 6 Months B20 - Human immunodeficiency virus [HIV] disease Lymphocyte Subset Panel 3 6 Months B20 - Human immunodeficiency virus [HIV] disease Liver Panel 6 Months B20 - Human immunodeficiency virus [HIV] disease Medications: Refilled sixagvpot-myuebnsh-bnsmdai ala 50-200-25 mg (Biktarvy) 1 tab PO DAILY 90 tabs 1RF 90 days Coding Level of Care Code Est Pt Level 4 (31543) Diagnoses HIV (human immunodeficiency virus infection) B20
== END 2023-07-19 11:50 | disposition home or self-care (01) ==
LOC: HO.HID 11:04
PROVIDERS: PCP Nurse Practitioner Family; Visit Provider Internal Medicine
DX: B20 Human immunodeficiency virus [HIV] disease (principal)
CPT/HCPCS: 99214

== ENCOUNTER → 2023-07-19 11:04 | Outpatient (BNVA) | payer OTHER, SELFPAY | PROVIDERS: PCP Nurse Practitioner Family; Visit Provider Internal Medicine | DX: B20 Human immunodeficiency virus [HIV] disease (principal) | CPT/HCPCS: 99212 ==

== ENCOUNTER → 2023-07-25 13:05 | Outpatient (BNVA) | payer OTHER, SELFPAY | PROVIDERS: PCP Nurse Practitioner Family; Visit Provider Nurse Practitioner Family ==

== ENCOUNTER 2023-07-25 16:54 | Emergency (ER) | payer OTHER, SELFPAY ==
--- NOTE | 2023-07-25 17:01 | ECG_ITS ---
Test Reason : PALPITATIONS Blood Pressure : / mmHG Vent. Rate : 056 BPM Atrial Rate : 056 BPM P-R Int : 170 ms QRS Dur : 086 ms QT Int : 424 ms P-R-T Axes : 048 021 048 degrees QTc Int : 409 ms Sinus bradycardia Otherwise normal ECG When compared with ECG of 28-OCT-2018 20:16, Vent. rate has decreased BY 36 BPM Referred By: Generic ED Physician Electronically Signed By:CARMENCITA BAH MD
[2023-07-25 17:57] VITALS: BP 147/73; PULSE 62; RESP 16; TEMP 36.4; O2SAT 98; BMI 43.9
--- NOTE | 2023-07-25 17:57 | ED_ITS ---
HPI - General Adult General Chief complaint: Arrhythmia/Palpitations Stated complaint: Low heart rate Time Seen by Provider: 07/25/23 19:45 Source: patient, RN notes reviewed and old records reviewed Mode of arrival: ambulatory Limitations: no limitations History of Present Illness HPI narrative: 57-year-old female with pmhx significant for anxiety, depression, hypertension, HDL, Graves disease s/p thyroidectomy, GERD, HIV, raynauds, BANDAR, CKD stage 2 here for evaluation of slow heart rate. She admits that she was at her GI appointment today to schedule her colonoscopy when they incidentally noted her heart rate to be low at 49 beats per minute. They advised her to come to the ED for evaluation. She states that she has never been told she has a low heart rate or abnormal EKG. She currently takes metoprolol for her hypertension. Endorses one episode of sharp chest pain 2 days ago, lasting for one second before completely resolving. She is currently status post thyroidectomy secondary to Graves. Her event designer is tracking her TSH levels and she states that they were recently high. Her levothyroxine dose was recently changed from 80 to 100. Denies recent travel or long car rides. Additionally endorses occasional tingling in her hands bilaterally which is not present in ED. Denies headache, dizziness, vision changes, syncope, shortness of breath, chest pain, palpitations, dyspnea, nausea or vomiting, calf pain, LE swelling. Related Data Home Medications ?Medication ?Instructions ?Recorded ?Confirmed lorazepam 1 mg tablet 1 mg PO BEDTIME PRN 06/18/21 07/18/23 citalopram 20 mg tablet 20 mg PO DAILY PRN 05/26/22 07/18/23 Previous Rx's ?Medication ?Instructions ?Recorded aspirin 81 mg chewable tablet 81 mg PO DAILY 90 days #90 tabs 01/28/21 albuterol sulfate 90 mcg/actuation 1 inh inhalation QID PRN shortness 01/19/22 aerosol inhaler (Ventolin HFA) of breath or wheezing #8.5 grams ezetimibe 10 mg tablet 10 mg PO DAILY #90 tabs 11/21/22 spironolactone 50 mg tablet 50 mg PO BID 90 days #180 tabs 01/19/23 atorvastatin 80 mg tablet 80 mg PO DAILY #90 tabs 02/16/23 levothyroxine 88 mcg tablet 88 mcg PO DAILY #90 tabs 07/16/23 metoprolol succinate 100 mg 100 mg PO BID #180 tabs 07/16/23 tablet,extended release 24 hr nifedipine 30 mg tablet,extended 30 mg PO DAILY #90 tabs 07/16/23 release bictegravir 50 mg-emtricitabine 1 tab PO DAILY 90 days #90 tabs 07/19/23 200 mg-tenofovir alafenam 25 mg tablet (Biktarvy) alirocumab 75 mg/mL subcutaneous 75 mg subcut Q2W 90 days #7 mL 07/25/23 pen injector (Praluent Pen) bisacodyl 5 mg tablet,delayed 20 mg (4 x 5 mg) PO ONCE 1 day #4 07/25/23 release (Dulcolax (bisacodyl)) tabs polyethylene glycol 3350 17 238 g PO ONCE #238 grams 07/25/23 gram/dose oral powder (Miralax) Allergies Allergy/AdvReac Type Severity Reaction Status Date / Time amlodipine [AMLODIPINE] Allergy Unknown RASH Verified 07/25/23 18:01 cephalexin [From KEFLEX] Allergy Unknown RASH Verified 07/25/23 18:01 levofloxacin [From LEVAQUIN] Allergy Unknown RASH Verified 07/25/23 18:01 Review of Systems 2 Review of Systems: Constitutional: No fever, chills, fatigue, night sweats, weight changes ENT/Mouth: No ear pain, hearing loss, nasal congestion, sinus pain, rhinorrhea, sore throat Eyes: No eye pain, swelling, redness, vision changes, discharge Cardio: No chest pain, palpitations, ALBRECHT, orthopnea, peripheral edema Pulm: No SOB, cough, sputum, wheezing, dyspnea, hemoptysis GI: No nausea, vomiting, hematemesis, abdominal pain, diarrhea, constipation, hematochezia, melena : No irregular bleeding, dysuria, frequency, urgency, hesitancy, hematuria, flank pain, urinary flow changes, urinary incontinence or retention MSK: No back pain, neck pain, joint pain, myalgias Skin: No lesions, rashes Neuro: No weakness, numbness, paresthesias, LOC, dizziness, headache Psych: No anxiety/panic, depression, SI/HI, AH/VH All other systems reviewed and are negative. [facility] Past Medical History Attestation statement: The following information was validated with the patient. 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 Anxiety Chronic kidney disease, stage 2 (mild) Morbid obesity Other and unspecified hyperlipidemia Essential hypertension Atherosclerotic cardiovascular disease Pituitary microadenoma Vitamin D deficiency Graves disease Post-surgical hypothyroidism Osteoarthritis GERD (gastroesophageal reflux disease) Leukopenia Cervical radiculitis Lumbar radiculopathy Pernicious anemia Obstructive sleep apnea Raynaud's phenomenon Pituitary microadenoma 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 Mother Stroke Sister Diabetes mellitus Maternal Grandmother Unknown family medical history Brother Cancer Sister No problems noted. Brother No problems noted. Daughter Healthy female Social History Social History Housing: Apartment Alcohol intake: current Alcohol intake frequency: holidays/special occasions only Patient Tobacco Use Status: Never used Tobacco e-Cigarette/Vaping Use: Never Used Second Hand Smoke Exposure: No Advance Directives: No Advance Directives Information Provided: No Current occupational status: disabled Cognitive needs: No Hearing needs: No Vision needs: No Physical Exam ED Vital Signs: Vital Signs - 24 hr 07/25/23 17:57 Temperature 97.5 F Pulse Rate 62 Respiratory Rate 16 Blood Pressure 147/73 H Pulse Oximetry 98 Oxygen Delivery Method Room Air BMI result Body Mass Index 43.9 Patient hypertensive, vitals otherwise WNL. Const General: cooperative, healthy appearing, comfortable and no acute distress Orientation/consciousness: patient oriented x3 Limitations: no limitations HENMT Head: Yes normal to inspection, Yes No palpable skull fracture present, Yes normocephalic and Yes atraumatic Eyes General: appearance normal, both eyes and all related structures Conjunctivae: conjunctivae normal Sclerae: sclerae normal Pupils: Equal, round and reactive pupils present Neck Neck: Yes normal visual inspection, Yes full ROM and Yes no lymphadenopathy Chest Chest palpation & inspection: normal inspection of the chest and normal palpation of entire chest wall Resp Effort & Inspection: normal respiratory effort and able to speak in complete sentences Auscultation: clear to auscultation bilaterally Cardio Other: + no peripheral edema Jugular venous distension: no JVD Rate: regular rate Rhythm: regular rhythm GI Inspection: Yes normal to inspection Skin General skin exam: no rashes or lesions noted Neuro General: patient oriented x3, gait normal and no focal motor deficits Cranial nerves: Yes Equal, round and reactive pupils present Gait exam (Neuro): Normal gait present Pupils: Normal pupillary reactivity/response: bilateral Course Course Course Narrative: RME:?57 yo female here for eval of low heart rate. she was at her GI appointment this morning to schedule a colonoscopy and her heart rate was noted to be 49. she was advised to come to the ED for further evaluation. denies fatigue, SOB, chest pain, dizziness. she is on metoprolol which she states they were aware of when they sent her to the ED. endorses an episode of sharp chest pain 2 days ago which lasted approx a few seconds before completely resolving along with occasional numbness/tingling in her b/l hands. she is s/p complete thyroidectomy. recent TSH levels were high. recent dosage change of levothyroxine from 88 to 100. labs, ekg ordered Full HPI, ROS and PE to be performed by the primary ED provider. Reevaluation(s) Reevaluation #1: 1955-- CBC without leukocytosis or anemia. Chemistry without acute electrolyte abnormality requiring intervention. Troponin undetectable. EKG showing sinus bradycardia, otherwise normal. ACS unlikely. TSH WNL > unlikely thyroid in etiology. Patient's bradycardia is likely secondary to current metoprolol use. She is asymptomatic. I discussed all work up results with patient and advised her to follow up with PCP and well testing operator regarding todays visit. Patient has remained stable throughout ED visit today. Discussed worrisome signs and symptoms and when to return to the ED. All questions answered at this time. Patient is agreeable with disposition and stable for discharge. Medical Decision Making Medical Decision Making [facility] Narrative: 57-year-old female with pmhx significant for anxiety, depression, hypertension, HDL, Graves disease s/p thyroidectomy, GERD, HIV, raynauds, BANDAR, CKD stage 2 here for evaluation of slow heart rate. Nontoxic-appearing and in no acute distress. Patient slightly hypertensive. RRR. Lungs CTA b/l. No palor. Exam nonfocal. Perrla. ambulating w/ steady gait. Differential diagnosis includes arrhythmia, ACS, electrolyte abnormality, anemia, medication side effect Plan for labs, EKG, trop and re-evaluation. Differential Diagnosis Differential Diagnoses: The differential diagnosis associated with the presentation includes As above Admission/Observation Not indicated Lab Data [facility] Lab Attestation statement: I reviewed the patient's lab results. As above 07/25/23 18:13 07/25/23 18:13 Labs: Lab Results 07/25/23 Range/Units 18:13 WBC 4.3 L (4.8-10.8) X10*3/uL RBC 4.86 (4.20-5.50) X10*6/uL Hgb 13.6 (12.0-16.0) g/dl Hct 41.6 (37.0-47.0) % MCV 85.6 (80.0-98.0) fL MCH 28.0 (27.0-33.0) pg MCHC 32.7 (31.0-35.0) g/dl RDW 14.0 (11.0-16.0) % Plt Count 243 (160-400) X10*3/uL MPV 9.9 (9.4-12.3) fL Immature Gran % (Auto) 0.2 (0.0-0.4) % Neut % (Auto) 31.9 L (45-73) % Lymph % (Auto) 59.7 H (20-40) % Keith % (Auto) 6.8 (2-11) % Eos % (Auto) 0.9 (0-4) % Baso % (Auto) 0.5 (0-2) % Lymph # (Auto) 2.6 (1.2-4.9) X10*3/uL Keith # (Auto) 0.3 (0.1-1.2) X10*3/uL Eos # (Auto) 0.0 (0.0-0.4) X10*3/uL Baso # (Auto) 0.0 (0.0-0.2) X10*3/uL Abs Immat Gran (auto) 0.01 (0.00-0.03) X10*3/uL Absolute Neuts (auto) 1.4 L (2.0-8.3) x10*3/uL Absolute Nucleated RBC 0.000 (0.0-0.012) X10*3/uL Nucleated RBC % (auto) 0.0 (0.0-0.2) /100WBC Sodium 144 (135-145) mmol/L Potassium 4.1 D (3.3-5.1) mmol/L Chloride 108 (96-108) mmol/L Carbon Dioxide 25 (22-29) mmol/L Anion Gap 15 (12-20) BUN 17 H (9-16) mg/dL Creatinine 1.40 (0.5-1.4) mg/dL Estim Creat Clear Calc 49.6 Estimated GFR 39 Random Glucose 88 (60-115) mg/dL Calcium 9.5 (8.4-10.2) mg/dL Magnesium 2.3 (1.6-2.6) mg/dL Total Bilirubin 0.7 (0.0-1.0) mg/dL AST 22 (5-31) U/L ALT 21 (0-31) U/L Alkaline Phosphatase 130 H (39-117) U/L Troponin I High Sens < 2.7 (<3.5-17.0) ng/L Total Protein 7.9 (6.5-8.0) g/dL Albumin 4.3 (3.5-5.0) g/dL TSH 2.93 (0.32-4.0) uIU/mL Independent Interpretation I performed an independent interpretation of an: EKG Interpretation: EKG showing sinus bradycardia at a rate of 56 beats per minute, QT 424, QTC 409, no acute ischemic changes or ST elevations. When compared to EKG obtained on October 28, 2018, rate has decreased without any other notable change. External Record Review External record reviewed: Inpatient record, Office record, Outpatient record, Prior outpatient labs, Prior outpatient radiology, Primary care record and Outside ED record Chronic Conditions Patient?s care impacted by: Hypertension Social Determinants Patient?s care significantly limited by Social Determinants of Health including: Other Social Determinant of Health Critical Care Time Critical Care Time Critical Care Time: Yes Total Critical Care Time: 31 Attestation: Critical care time in the amount of 31 minutes has been provided to the patient in terms of direct patient care, frequent reevaluation, review and interpretation of medical data and results, and management of potentially life- threatening conditions. This is all outside of any medical procedures. Discharge Plan Discharge Clinical Impression: Bradycardia Patient Disposition: Home, Self-Care Instructions: Metoprolol (By mouth), Bradycardia (ED) Additional Instructions: Your lab work today is areassuring. Your EKG showed slowed heart rate but was otherwise normal. Your heart rate is likely slower due to your metoprolol. Please follow up with your PCP. You have also been provided with a referral to a well testing operator if you wish to follow-up with them. You can call them to make an appointment. Return with new or worsening symptoms. In the case of an emergency call 911. Prescriptions: No Action aspirin 81 mg tablet,chewable 81 mg PO DAILY 90 Days Qty: 90 3RF ezetimibe 10 mg tablet 10 mg PO DAILY Qty: 90 3RF spironolactone 50 mg tablet 50 mg PO BID 90 Days Qty: 180 1RF atorvastatin 80 mg tablet 80 mg PO DAILY Qty: 90 3RF nifedipine 30 mg tablet extended release 30 mg PO DAILY Qty: 90 1RF levothyroxine 88 mcg tablet 88 mcg PO DAILY Qty: 90 1RF metoprolol succinate 100 mg tablet extended release 24 hr 100 mg PO BID Qty: 180 1RF Praluent Pen 75 mg/mL pen injector 75 mg subcut Q2W 90 Days Qty: 7 3RF albuterol sulfate [Ventolin HFA] 90 mcg/actuation HFA aerosol inhaler 1 inh inhalation QID PRN (Reason: shortness of breath or wheezing) Qty: 8.5 1RF lorazepam 1 mg tablet 1 mg PO BEDTIME PRN citalopram 20 mg tablet 20 mg PO DAILY PRN Biktarvy 50-200-25 mg tablet 1 tab PO DAILY 90 Days Qty: 90 1RF bisacodyl [Dulcolax (bisacodyl)] 5 mg tablet,delayed release (DR/EC) 20 mg PO ONCE 1 Days Qty: 4 0RF Rx Instructions: take 4 tabs at noon the day before your colonoscopy polyethylene glycol 3350 [Miralax] 17 gram/dose powder 238 g PO ONCE Qty: 238 0RF Rx Instructions: As directed by gastroenterology department at [facility] [place] [facility] [place] [facility] [place] [facility] [place] [facility] [place] [facility] [place] [facility] [place]] Print Language: [place]
[2023-07-25 18:17] LABS: MANUAL DIFF FLAG NO
[2023-07-25 18:22] LABS: Basophils Percent Auto 0.5 % (0-2); Eosinophils Percent Auto 0.9 % (0-4); Hematocrit 41.6 % (37.0-47.0); Hemoglobin 13.6 g/dl (12.0-16.0); Imm Gran Abs Auto 0.01 X10*3/uL (0.00-0.03); Imm Gran Pct Auto 0.2 % (0.0-0.4); Lymphocytes Absolute Auto 2.6 X10*3/uL (1.2-4.9); Lymphocytes Percent Auto 59.7 % (20-40); Mean Corpuscular HGB Conc 32.7 g/dl (31.0-35.0); Mean Corpuscular Volume 85.6 fL (80.0-98.0); Mean Platelet Volume 9.9 fL (9.4-12.3); Monocytes Absolute Auto 0.3 X10*3/uL (0.1-1.2); Monocytes Percent Auto 6.8 % (2-11); Neutrophils Absolute Auto 1.4 x10*3/uL (2.0-8.3); Neutrophils Percent Auto 31.9 % (45-73); Platelet Count 243 X10*3/uL (160-400); Red Blood Count 4.86 X10*6/uL (4.20-5.50); White Blood Count 4.3 X10*3/uL (4.8-10.8)
[2023-07-25 18:34] LABS: Alanine Aminotransferase 21 U/L (0-31); Albumin Level 4.3 g/dL (3.5-5.0); Alkaline Phosphatase 130 U/L (39-117); Anion Gap 15 (12-20); Aspartate Amino Transferase 22 U/L (5-31); Bilirubin Total 0.7 mg/dL (0.0-1.0); Blood Urea Nitrogen 17 mg/dL (9-16); Calcium 9.5 mg/dL (8.4-10.2); Carbon Dioxide 25 mmol/L (22-29); Chloride 108 mmol/L (96-108); Creatinine Clr Calc Pharmacy 49.6; Estimated Glomerular Filt Rate 39; Glucose Random 88 mg/dL (60-115); Magnesium 2.3 mg/dL (1.6-2.6); Potassium 4.1 mmol/L (3.3-5.1); Sodium 144 mmol/L (135-145); Total Protein 7.9 g/dL (6.5-8.0)
[2023-07-25 18:42] LABS: Troponin-I High Sensitivity < 2.7 ng/L (<3.5-17.0)
[2023-07-25 18:55] LABS: TSH reflex Free T4 2.93 uIU/mL (0.32-4.0)
[2023-07-25 20:00] VITALS: BP 0/0; PULSE 0; RESP 0; TEMP -17.7; TEMP 0; O2SAT 0
== END 2023-07-25 20:00 | disposition home or self-care (01) ==
PROVIDERS: Physician Assistant Medical; Emergency Provider Emergency Medicine; PCP Nurse Practitioner Family
DX: R00.1 Bradycardia, unspecified (principal); R00.2 Palpitations; R94.31 Abnormal electrocardiogram [ECG] [EKG]; B20 Human immunodeficiency virus [HIV] disease; I73.00 Raynaud's syndrome without gangrene; I12.9 Hypertensive chronic kidney disease with stage 1 through stage 4 chronic kidney disease, or unspecified chronic kidney disease; N18.2 Chronic kidney disease, stage 2 (mild); E05.00 Thyrotoxicosis with diffuse goiter without thyrotoxic crisis or storm; Z79.899 Other long term (current) drug therapy
CPT/HCPCS: 36415; 80053; 83735; 84443; 84484; 85025; 93005; 99283

== ENCOUNTER → 2023-07-25 17:01 | Outpatient (BNV) | payer OTHER, SELFPAY | PROVIDERS: Emergency Provider Emergency Medicine; PCP Nurse Practitioner Family; Visit Provider Internal Medicine Cardiovascular Disease | DX: R00.1 Bradycardia, unspecified (principal) | CPT/HCPCS: 93010 ==

== ENCOUNTER 2023-09-14 08:37 | Outpatient (AMB) | payer OTHER, SELFPAY ==
[2023-09-14 08:46] VITALS: BMI 43.8
--- NOTE | 2023-09-14 08:46 | MHC.OFFVIS ---
Vital Signs 09/14/23 08:46 Height 5 ft 1 in Weight 232 lb BMI 43.8 Intake Visit Reasons: OV- Right knee Durolane gel injection Intake Note: Miriam is a 57 year old female who presents with complaints of progressively worsening right knee pain. She describes her pain as sharp in nature. Her pain has gotten worse over the last few months in spite of continued non operative treatments. She has had cortisone injections in the past which gave her minimal relief. She has also had viscosupplementation injections which gave her fairly good relief. She has tried Tylenol and anti-inflammatory medicines which gave her only mild relief. She wishes to hold off on surgery for as long as possible. She also has intermittent left knee pain. She states that at this point her left knee pain is tolerable to her. Allergies amlodipine [AMLODIPINE] Allergy (Unknown, Verified 09/14/23 08:48) RASH cephalexin [From KEFLEX] Allergy (Unknown, Verified 09/14/23 08:48) RASH levofloxacin [From LEVAQUIN] Allergy (Unknown, Verified 09/14/23 08:48) RASH Medication List - Last Reconciled 09/15/23 by Kp Cannon MD albuterol sulfate 90 mcg/actuation (Ventolin HFA) 1 inh inhalation QID PRN alirocumab (Praluent Pen) 75 mg subcut Q2W 90 days aspirin (Adult Aspirin Regimen) 81 mg PO DAILY 90 days atorvastatin 80 mg PO DAILY vqabmomnn-nhcvoypq-vsqlcyz ala 50-200-25 mg (Biktarvy) 1 tab PO DAILY 90 days bisacodyl (Dulcolax (bisacodyl)) 20 mg (4 x 5 mg) PO ONCE 1 day citalopram 20 mg PO DAILY PRN ezetimibe 10 mg PO DAILY levothyroxine 88 mcg PO DAILY levothyroxine 100 mcg orally once a week; take 88mcg all other days of the week lorazepam 1 mg PO BEDTIME PRN metoprolol succinate ER 100 mg PO BID nifedipine ER 30 mg PO DAILY polyethylene glycol 3350 (Miralax) 238 grams PO ONCE spironolactone 50 mg PO BID 90 days [facility] Medical History 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 Anxiety Chronic kidney disease, stage 2 (mild) Morbid obesity Other and unspecified hyperlipidemia Essential hypertension Atherosclerotic cardiovascular disease Pituitary microadenoma Vitamin D deficiency Graves disease Post-surgical hypothyroidism Osteoarthritis GERD (gastroesophageal reflux disease) Leukopenia Cervical radiculitis Lumbar radiculopathy Pernicious anemia Obstructive sleep apnea Raynaud's phenomenon Pituitary microadenoma 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 Mother Stroke Sister Diabetes mellitus Maternal Grandmother Unknown family medical history Brother Cancer Sister No problems noted. Brother No problems noted. Daughter Healthy female Social History Housing: Apartment Alcohol intake: current Alcohol intake frequency: holidays/special occasions only Patient Tobacco Use Status: Never used Tobacco e-Cigarette/Vaping Use: Never Used Second Hand Smoke Exposure: No Current occupational status: disabled Cognitive needs: No Hearing needs: No Vision needs: No Female Reproductive History Menstrual Age of Menarche: 13 Physical Exam Vital Signs: BMI result Body Mass Index 43.8 Const Other: Well-nourished well-developed very friendly female awake alert and oriented x3 in no acute distress Extrem Other: Bilateral lower extremity examination shows good capillary refill, no skin lesions noted, normal sensation light touch Right knee examination shows a minimal effusion, palpable crepitus with range of motion, pain with range of motion, no instability Office Procedures Joint Injection/Drain Joint Injection/Drain Primary Site: right knee Prep: site was prepped using aseptic technique Injected: 60 mg of (Durolane viscosupplementation) and 1% plain lidocaine Procedure: The patient tolerated the procedure well Coding 40886 - Large joint Procedure code (CPT) selection complete Results Reviewed Results Reviewed: X-rays of the patient's right knee show joint space narrowing, subchondral sclerosis, no acute bony abnormalities Assessment & Plan Assessment & Plan (1) Arthritis of right knee: Code(s): M17.11 - Unilateral primary osteoarthritis, right knee Category: Medical Plan Ms. Chacon presents with right knee pain due to degenerative joint disease. I had a lengthy discussion with the patient regarding the treatment options. She wishes to hold off on surgery for as long as possible. I agree with this plan. She has not gotten good relief from cortisone injections in the past. Thus, the risks and benefits of a right knee Durolane viscosupplementation injection were discussed at length with the patient. The patient wished to proceed. She tolerated the injection well. She will continue with her activity modifications. She will follow up with me on an as-needed basis should her symptoms not plateau at an unacceptable level over the next few months. Feel free to call me at any time should questions regarding her orthopedic management arise. I spent 21 minutes in reviewing the patient's records and imaging studies, seeing the patient and documenting in the medical record. Orders: Orders AMB Joint Injection/Aspiration 09/14/23 M17.11 - Unilateral primary osteoarthritis, right knee Coding Level of Care Code Est Pt Level 3 (05234) Diagnoses Arthritis of right knee M17.11 CPT Codes Coding - 52643 Large joint: 52222 - Large joint ([id number])
== END 2023-09-14 09:15 | disposition home or self-care (01) ==
PROVIDERS: PCP Nurse Practitioner Family; Visit Provider Orthopaedic Surgery
DX: M17.11 Unilateral primary osteoarthritis, right knee (principal)
CPT/HCPCS: 20610; 99214

== ENCOUNTER → 2023-09-14 08:37 | Outpatient (BNVA) | payer OTHER, SELFPAY | PROVIDERS: PCP Nurse Practitioner Family; Visit Provider Orthopaedic Surgery | DX: M17.11 Unilateral primary osteoarthritis, right knee (principal) | CPT/HCPCS: 20610; 99212; J7318 ==

== ENCOUNTER 2023-09-27 10:34 | Outpatient (AMB) | payer OTHER, SELFPAY ==
--- NOTE | 2023-09-27 10:55 | A.OFFVIS_ITS ---
Intake Visit Reasons: Microscopic hematuria Intake Note: NEW Patient presents today to established treatment for Microscopic Hematuria: Meds- None Allergies to Antibiotic- No Known Allergies Blood Thinner- Aspirin Licensed Nuclear Operator Required: No Accompanied by: Self / Same As Patient Allergies amlodipine [AMLODIPINE] Allergy (Unknown, Verified 09/27/23 10:59) RASH cephalexin [From KEFLEX] Allergy (Unknown, Verified 09/27/23 10:59) RASH levofloxacin [From LEVAQUIN] Allergy (Unknown, Verified 09/27/23 10:59) RASH HPI Comments Details: Miriam is a 57-year-old female who presents as a new patient evaluation for microscopic hematuria. She is followed by renal for chronic kidney disease. She denies irritative voiding symptoms. She states her primary scheduled a CT scan which is pending on 11/15/23, and urine cytology was sent on 07/12/2023--negative for malignant cells. Patient with multiple medical conditions, HIV positive. I have discussed reasons for blood in the urine may include but are not limited to kidney stones, cancer in the urinary tract, kidney stone disease or inflammatory conditions of the urinary tract. I have discussed workup to include cystoscopy evaluation. Will schedule urine for cytology. 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 Mother Stroke Sister Diabetes mellitus Maternal Grandmother Unknown family medical history Brother Cancer Sister No problems noted. Brother No problems noted. Daughter Healthy female Social History Housing: Apartment Alcohol intake: current Alcohol intake frequency: holidays/special occasions only Patient Tobacco Use Status: Never used Tobacco e-Cigarette/Vaping Use: Never Used Second Hand Smoke Exposure: No Current occupational status: disabled Cognitive needs: No Hearing needs: No Vision needs: No Female Reproductive History Menstrual Age of Menarche: 13 Review of Systems Const All systems reviewed & are unremarkable except as noted in HPI and below Reports no additional complaints Eyes Reports no additional complaints ENT Reports no additional complaints Card Reports no additional complaints Resp Reports no additional complaints GI Reports no additional complaints Reports as per HPI Musc Reports no additional complaints Skin/Breast Reports system reviewed and no additional complaints, except as documented Neuro Reports no additional complaints Psych Reports no additional complaints Endo Reports no additional complaints Josh/Lymph Reports no additional complaints Aller/Immun Reports no additional complaints Physical Exam Const General: cooperative, healthy appearing and no acute distress Nutritional Appearance: overweight HEENT Head: Yes normal to inspection, Yes normocephalic and Yes atraumatic Eyes Conjunctivae: conjunctivae normal Neck Neck: Yes normal visual inspection and Yes trachea midline Chest Chest palpation & inspection: normal inspection of the chest Resp Effort & Inspection: normal respiratory effort Cardio Rate: regular rate GI Inspection: Yes normal to inspection Skin General skin exam: no rashes or lesions noted Psych Appearance: grossly normal Results AMB Urinalysis, Automated UA Leukoctes 0 Gina/uL Last Edit by JOSEPH Watts on 09/27/23 11:01 UA Nitrite Negative Last Edit by JOSEPH Watts on 09/27/23 11:01 UA Urobilinogen 0.2 mg/dL Last Edit by JOSEPH Watts on 09/27/23 11:0 1 UA Protein 15 mg/dL Last Edit by JOSEPH Watts on 09/27/23 11:01 UA pH 5.5 Last Edit by Manoj Pink Brennen on 09/27/23 11:01 UA Blood 80 Americo/uL Last Edit by Manoj Pink Brennen on 09/27/23 11:01 2+ Manoj Pink 09/27/23 11:01 UA Specific [place] 1.015 Last Edit by JOSEPH Watts on 09/27/23 11: 01 UA Ketone Negative Last Edit by JOSEPH Watts on 09/27/23 11:01 UA Bilirubin 0 mg/dL Last Edit by Manoj Pink Brennen on 09/27/23 11:01 UA Glucose 0 mg/dL Last Edit by Manoj Pink Brennen on 09/27/23 11:01 Results Reviewed Results Reviewed: Laboratory Last Values Urine pH (Auto) 5.5 09/27/23 11:00 Specific [place] (Auto) 1.015 09/27/23 11:00 Urine Protein (Auto) 15 mg/dL 09/27/23 11:00 Glucose (UA)(Auto) 0 mg/dL 09/27/23 11:00 Urine Ketones (Auto) Negative 09/27/23 11:00 Urine Blood (Auto) 80 Americo/uL 09/27/23 11:00 Urine Nitrite (Auto) Negative 09/27/23 11:00 Urine Bilirubin (Auto) 0 mg/dL 09/27/23 11:00 Urine Urobilinogen (Auto) 0.2 mg/dL 09/27/23 11:00 Leukocyte Esterase (Auto) 0 Gina/uL 09/27/23 11:00 Collected: 07/12/23 Location: [facility] Received: 07/14/23 Diagnosis Urine: Negative for high-grade urothelial carcinoma. COMMENT: Examination of a monolayer preparation slide shows many benign superficial squamous cells, occasional benign urothelial cells, occasional inflammatory cells, and few red blood cells. Clinical History Microscopic hematuria Material Received Urine Gross Description Received are 70 cc of clear yellow fluid from which a ThinPrep slide is prepared. Assessment & Plan Assessment & Plan (1) Microscopic hematuria: Code(s): R31.29 - Other microscopic hematuria Category: Medical Plan Urine cytology, CT urogram ordered by PCP is pending, follow-up office cystoscopy. Orders: Orders AMB Urinalysis Automated Today Z13.9 - Encounter for screening, unspecified Patient Instructions: The patient had an opportunity to ask questions regarding treatment plan. The patient expressed understanding and agreement with the above treatment plan. The patient is aware they should contact our office by phone for worsening of their current condition or the appearance of new symptoms. Compliance is encouraged with any medications and followup testing that is ordered. It is a privilege to be allowed the opportunity to participate in the urologic care of your patient. If you have any questions or concerns regarding treatment for the above conditions please do not hesitate to contact me. The office telephone contact is [phone]. This note is constructed in part using voice recognition software. While every effort has been made to ensure accuracy medical accounting clerk errors may have been included. Yours sincerely, Rah Mitchell MD Coding Level of Care Code New Pt Level 4 (67458) Diagnoses Microscopic hematuria R31.29
== END 2023-09-27 11:32 | disposition home or self-care (01) ==
PROVIDERS: PCP Nurse Practitioner Family; Visit Provider Urology
DX: Z13.9 Encounter for screening, unspecified (principal); R31.29 Other microscopic hematuria
CPT/HCPCS: 99204

== ENCOUNTER → 2023-09-27 10:34 | Outpatient (BNVA) | payer OTHER, SELFPAY | PROVIDERS: PCP Nurse Practitioner Family; Visit Provider Urology | DX: R31.29 Other microscopic hematuria (principal) | CPT/HCPCS: 81003; 99202 ==

== ENCOUNTER 2023-10-04 13:17 | Outpatient (AMB) | payer OTHER, SELFPAY ==
--- NOTE | 2023-10-04 13:19 | AM.OFFWIN_ITS ---
Intake Vital Signs 10/04/23 13:26 Weight 232 lb BP 128/94 H Blood Pressure Location Rt brachial Position Sitting Pulse 97 Pulse Source Pulse Oximeter Temp 98.7 F Temp Source Oral Pulse Oximetry (%) 97 Oxygen Delivery Method Room Air Intake Visit Reasons: EP ?UTI Intake Note: Patient here for possible UTI, frequent urination, lower abd pressure on left side and left sided back pain which has been present for about 3 days. Patient Tobacco Use Status: Never used Tobacco Allergies amlodipine [AMLODIPINE] Allergy (Unknown, Verified 10/04/23 13:25) RASH cephalexin [From KEFLEX] Allergy (Unknown, Verified 10/04/23 13:25) RASH levofloxacin [From LEVAQUIN] Allergy (Unknown, Verified 10/04/23 13:25) RASH Do you need a note to return to daycare/school/sports/work: No HPI EP ?UTI HPI Details 57 [facility] day history of pelvic pressure, urinary frequency. She feels dull pain/pressure when she urinates, however no burning sensation. Has a history of hematuria for which she is being followed at [facility] urology and has a cystoscopy later this month. Denies fever or chills. Has some dull left sided lower back pain. 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 Mother Stroke Sister Diabetes mellitus Maternal Grandmother Unknown family medical history Brother Cancer Sister No problems noted. Brother No problems noted. Daughter Healthy female Social History Housing: Apartment Alcohol intake: current Alcohol intake frequency: holidays/special occasions only Patient Tobacco Use Status: Never used Tobacco e-Cigarette/Vaping Use: Never Used Second Hand Smoke Exposure: No Current occupational status: disabled Cognitive needs: No Hearing needs: No Vision needs: No Female Reproductive History Menstrual Age of Menarche: 13 Review of Systems Const All systems reviewed & are unremarkable except as noted in HPI and below Physical Exam Vital Signs: Last Vital Signs Temp 98.7 F 10/04/23 13:26 Pulse 97 10/04/23 13:26 BP 128/94 H 10/04/23 13:26 Pulse Ox 97 10/04/23 13:26 Oxygen Delivery Method Room Air 10/04/23 13:26 Const General: cooperative and no acute distress Neck Neck: Yes no lymphadenopathy Resp Effort & Inspection: normal respiratory effort Cardio Rate: regular rate Rhythm: regular rhythm GI Inspection: Yes normal to inspection Palpation (GI): Soft to palpation General: Yes bladder normal to palpation and Yes no CVA tenderness Bimanual exam- vagina & uterus: bladder normal to palpation Back/Spine/Pelvis Back: no CVA tenderness Skin General skin exam: no rashes or lesions noted Extrem General: Yes capillary refill normal and Yes no clubbing, cyanosis or edema Psych Appearance: grossly normal Mental Status: mental status grossly normal Speech and movement: Normal speech and movement present Results AMB Urinalysis, Automated UA Leukoctes 0 Gina/uL Last Edit by FAISAL Irene on 10/04/23 13:30 UA Nitrite Negative Last Edit by FAISAL Irene on 10/04/23 13:30 UA Urobilinogen 0.2 mg/dL Last Edit by FAISAL Irene on 10/04/23 13:30 UA Protein 0 mg/dL Last Edit by FAISAL Irene on 10/04/23 13:30 UA pH 6.0 Last Edit by FAISAL Irene on 10/04/23 13:30 UA Blood 80 Americo/uL Last Edit by FAISAL Irene on 10/04/23 13:30 UA Specific [place] 1.010 Last Edit by FAISAL Irene on 10/04/23 13:30 UA Ketone Negative Last Edit by FAISAL Irene on 10/04/23 13:30 UA Bilirubin 0 mg/dL Last Edit by FAISAL Irene on 10/04/23 13:30 UA Glucose 0 mg/dL Last Edit by FAISAL Irene on 10/04/23 13:30 Assessment & Plan Assessment & Plan (1) Urinary tract infection: Code(s): N39.0 - Urinary tract infection, site not specified Qualifiers: Urinary tract infection type: acute cystitis Hematuria presence: with hematuria Qualified Code(s): N30.01 - Acute cystitis with hematuria Plan: Will start on Nitrofurantoin and have patient f/u with urology as scheduled. Advised increased hydration. If she develops any worsening symptoms or does not improve with treatment, she should return to the clinic for further evaluation. She agrees to plan. Orders: Orders AMB Urinalysis Automated Today Z13.9 - Encounter for screening, unspecified Medications: New nitrofurantoin macrocrystal Take twice a day with food for 5 days. 100 mg PO BID 5 days 10 caps 0RF N39.0 - Urinary tract infection, site not specified Coding Level of Care Code Est Pt Level 4 (37828) Diagnoses Acute cystitis with hematuria N30.01 Urinary tract infection type: acute cystitis Hematuria presence: with hematuria
[2023-10-04 13:26] VITALS: BP 128/94; PULSE 97; TEMP 37.1; O2SAT 97
== END 2023-10-04 14:10 | disposition home or self-care (01) ==
PROVIDERS: PCP Nurse Practitioner Family; Visit Provider Nurse Practitioner Family
DX: N30.01 Acute cystitis with hematuria (principal)
CPT/HCPCS: 81003; 99214

== ENCOUNTER 2023-10-12 12:43 | Outpatient (REF) | payer OTHER, SELFPAY ==
--- NOTE | ~2023-10-12 | CT_ITS ---
EXAMINATION: CT ABDOMEN AND PELVIS WITHOUT AND WITH CONTRAST CLINICAL INFORMATION: Microscopic hematuria. COMPARISON: Ultrasound abdomen 09/01/2022. CT abdomen/pelvis 02/27/2021. TECHNIQUE: Noncontrast CT of the abdomen and pelvis is performed followed by split bolus contrast-enhanced images using 85 mL Omnipaque 350 contrast.?Postcontrast imaging is performed during the combined nephrogram and excretion phase. Sagittal and coronal reformatted images were obtained on the technologist's workstation for both the precontrast and postcontrast phases. This CT examination was performed using dose optimization techniques as appropriate, variously including the following: *Automated exposure control *Adjustment of mA and/or kV according to patient size (this includes techniques or standardized protocols for targeted exams where dose is matched to indication/reason for exam; i.e. extremities or head) *Use of iterative reconstruction technique DLP: 1214 mGy-cm FINDINGS: LUNG BASES: Bronchial thickening and traction bronchiectasis are present at the lung bases. LIVER, GALLBLADDER, AND BILIARY TREE: The liver is normal in size, shape, and attenuation. No focal hepatic lesion or biliary ductal dilatation is present. The gallbladder is unremarkable with no evidence of radiopaque gallstones, gallbladder wall thickening, or obvious pericholecystic inflammatory changes. PANCREAS: Unremarkable. SPLEEN: Unremarkable. ADRENAL GLANDS: Unremarkable. KIDNEYS AND URETERS: The kidneys are normal in size, shape, and attenuation. There are 2 rounded areas of calcification seen in the left kidney one in the upper pole measuring 7 mm (5:246) and another in the mid kidney measuring 3 mm (5:302). A faint 3 mm area of calcification seen in the mid to lower right kidney (5:297). Similar findings can be seen on the 02/27/2021 CT scan. These do not appear to be in the renal collecting system but in the renal parenchyma. No hydronephrosis, hydroureter, or collecting system/ureteral calculi seen. Pelvicalyceal systems appear normal without filling defects or mucosal abnormalities. No renal masses are seen. No perinephric stranding. BLADDER: The bladder wall is symmetrically thickened. No bladder calculi are seen. GASTROINTESTINAL TRACT: The small and large bowel are unremarkable. No evidence of appendicitis. ABDOMINAL WALL: No significant hernia is appreciated. LYMPH NODES: No retroperitoneal lymphadenopathy. VASCULAR: Unremarkable. PELVIC VISCERA: The uterus and adnexa are unremarkable. OSSEUS STRUCTURES: Degenerative changes are present from L4 through S1. No bony destructive lesions. CT/CT urogram IMPRESSION: 1. Bilateral renal parenchymal calcifications. No collecting system calculi are seen. 2. Symmetric bladder wall thickening. 3. Incidental note made of bronchial thickening and traction bronchiectasis at the lung bases and degenerative changes in the spine.
[2023-10-12 12:59] LABS: MANUAL DIFF FLAG NO
[2023-10-12] MEDS: iohexoL 350 MG/ML 75 ML INFUS..BTL 85 ML IV (14:15)
[2023-10-12 14:20] LABS: Basophils Percent Auto 0.4 % (0-2); Eosinophils Percent Auto 0.7 % (0-4); Hemoglobin 13.1 g/dl (12.0-16.0); Imm Gran Abs Auto 0.05 X10*3/uL (0.00-0.03); Imm Gran Pct Auto 0.9 % (0.0-0.4); Lymphocytes Absolute Auto 2.7 X10*3/uL (1.2-4.9); Lymphocytes Percent Auto 47.5 % (20-40); Mean Corpuscular Hemoglobin 27.7 pg (27.0-33.0); Mean Corpuscular Volume 86.7 fL (80.0-98.0); Mean Platelet Volume 10.4 fL (9.4-12.3); Monocytes Absolute Auto 0.4 X10*3/uL (0.1-1.2); Monocytes Percent Auto 7.2 % (2-11); Neutrophils Absolute Auto 2.5 x10*3/uL (2.0-8.3); Neutrophils Percent Auto 43.3 % (45-73); Platelet Count 284 X10*3/uL (160-400); Red Blood Count 4.73 X10*6/uL (4.20-5.50); Red Cell Distribution Width 14.3 % (11.0-16.0); White Blood Count 5.7 X10*3/uL (4.8-10.8)
[2023-10-12 14:54] LABS: Appearance Urine Clear; Color Urine Yellow; Glucose Urine UA Negative (Negative); Leukocyte Esterase Urine Moderate (2+) (Negative); Nitrite Urine Negative (Negative); Specific Gravity - Urine 1.015 (1.005-1.025); UMIC TRIGGER UACC YES; Urine Blood Moderate (2+) (Negative); Urine Ketones Negative (Negative); Urine Protein Negative (Neg-Trace)
[2023-10-12 14:58] LABS: TSH reflex Free T4 2.34 uIU/mL (0.32-4.0)
[2023-10-12 15:06] LABS: Bacteria Urine None Seen (None Seen); Hyaline Casts Urine 0-2 /LPF (0-2); RBC Urine 0-2 /HPF (0-2); Squamous Epithelial Cell Urine 0-2 /HPF (0-2); UACC Culture Trigger YES
[2023-10-16 07:21] LABS: Creatinine POC 1.3 mg/dL (0.5-1.4); GFR POC > 60
== END 2023-10-12 12:44 | disposition home or self-care (01) ==
LOC: HO.CT 12:43
PROVIDERS: PCP Nurse Practitioner Family; Visit Provider Nurse Practitioner Family
DX: E05.00 Thyrotoxicosis with diffuse goiter without thyrotoxic crisis or storm (principal); R31.29 Other microscopic hematuria
CPT/HCPCS: 36415; 74178; 81001; 82565; 84443; 85025; 87086; Q9967

== ENCOUNTER 2023-10-22 20:00 | Emergency (ER) | payer OTHER, SELFPAY ==
[2023-10-22 20:03] VITALS: BP 124/82; PULSE 76; RESP 18; TEMP 36.2; O2SAT 99; BMI 43.7
--- NOTE | 2023-10-22 20:15 | ED_ITS ---
HPI - General Adult General Chief complaint: General Medical Stated complaint: insect bites, swollen and purple Time Seen by Provider: 10/22/23 20:14 Source: patient Mode of arrival: ambulatory Limitations: no limitations History of Present Illness ED Provider: Dr. Luis Miguel Glover HPI narrative: 57-year-old female with a history of hypertension who presents emergency department for evaluation of pain, swelling and redness over multiple areas of her lower extremity secondary to insect bites that occurred 1 day prior. The patient states she was outdoors at a picnic when she got multiple bites on her lower extremities. She states that several of the bites are now very swollen, painful and pruritic. She states that she has been feeling fatigued but denied fever or chills. She denied chest pain, shortness of breath, nausea, vomiting. Related Data Home Medications ?Medication ?Instructions ?Recorded ?Confirmed lorazepam 1 mg tablet 1 mg PO BEDTIME PRN 06/18/21 09/15/23 citalopram 20 mg tablet 20 mg PO DAILY PRN 05/26/22 09/15/23 Previous Rx's ?Medication ?Instructions ?Recorded albuterol sulfate 90 mcg/actuation 1 inh inhalation QID PRN shortness 01/19/22 aerosol inhaler (Ventolin HFA) of breath or wheezing #8.5 grams ezetimibe 10 mg tablet 10 mg PO DAILY #90 tabs 11/21/22 spironolactone 50 mg tablet 50 mg PO BID 90 days #180 tabs 01/19/23 atorvastatin 80 mg tablet 80 mg PO DAILY #90 tabs 02/16/23 levothyroxine 88 mcg tablet 88 mcg PO DAILY #90 tabs 07/16/23 metoprolol succinate 100 mg 100 mg PO BID #180 tabs 07/16/23 tablet,extended release 24 hr nifedipine 30 mg tablet,extended 30 mg PO DAILY #90 tabs 07/16/23 release bictegravir 50 mg-emtricitabine 1 tab PO DAILY 90 days #90 tabs 07/19/23 200 mg-tenofovir alafenam 25 mg tablet (Biktarvy) alirocumab 75 mg/mL subcutaneous 75 mg subcut Q2W 90 days #7 mL 07/25/23 pen injector (Praluent Pen) bisacodyl 5 mg tablet,delayed 20 mg (4 x 5 mg) PO ONCE 1 day #4 07/25/23 release (Dulcolax (bisacodyl)) tabs polyethylene glycol 3350 17 238 g PO ONCE #238 grams 07/25/23 gram/dose oral powder (Miralax) levothyroxine 100 mcg capsule 100 mcg PO .COMPLEX #12 caps 07/31/23 aspirin 81 mg tablet,delayed 81 mg PO DAILY 90 days #90 tabs 09/05/23 release (Adult Aspirin Regimen) nitrofurantoin macrocrystal 100 mg 100 mg PO BID 5 days #10 caps 10/04/23 capsule naproxen 500 mg tablet 500 mg PO BID 14 days #28 tabs 10/09/23 tamsulosin 0.4 mg capsule 0.4 mg PO BEDTIME 14 days #14 caps 10/09/23 acetaminophen 500 mg tablet 1,000 mg (2 x 500 mg) PO Q6H PRN 10/22/23 (Tylenol Extra Strength) fever or pain #20 tabs diphenhydramine HCl 25 mg capsule 25 mg PO Q6H PRN Itchiness #14 caps 10/22/23 doxycycline hyclate 100 mg tablet 100 mg PO Q12H 5 days #10 tabs 10/22/23 prednisone 20 mg tablet 40 mg (2 x 20 mg) PO DAILY 5 days 10/22/23 #10 tabs Allergies Allergy/AdvReac Type Severity Reaction Status Date / Time amlodipine [AMLODIPINE] Allergy Unknown RASH Verified 10/22/23 20:07 cephalexin [From KEFLEX] Allergy Unknown RASH Verified 10/22/23 20:07 levofloxacin [From LEVAQUIN] Allergy Unknown RASH Verified 10/22/23 20:07 Review of Systems Review of Systems: Yes all other systems are reviewed and are negative REPLACED BY [facility] Past Medical History REPLACED BY [facility] Narrative: Social history: She denies tobacco, alcohol and drug use Medical History 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 Anxiety Chronic kidney disease, stage 2 (mild) Morbid obesity Other and unspecified hyperlipidemia Essential hypertension Atherosclerotic cardiovascular disease Pituitary microadenoma Vitamin D deficiency Graves disease Post-surgical hypothyroidism Osteoarthritis GERD (gastroesophageal reflux disease) Leukopenia Cervical radiculitis Lumbar radiculopathy Pernicious anemia Obstructive sleep apnea Raynaud's phenomenon Pituitary microadenoma 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 Mother Stroke Sister Diabetes mellitus Maternal Grandmother Unknown family medical history Brother Cancer Sister No problems noted. Brother No problems noted. Daughter Healthy female Social History Social History Housing: Apartment Alcohol intake: current Alcohol intake frequency: holidays/special occasions only Patient Tobacco Use Status: Never used Tobacco Smoked in Last 30 Days: No e-Cigarette/Vaping Use: Never Used Second Hand Smoke Exposure: No Use of substances other than those prescribed or required for medical reasons: No Advance Directives: No Advance Directives Information Provided: No Do you have a plan to hurt others: No Plan Patient : No Current occupational status: disabled Cognitive needs: No Hearing needs: No Vision needs: No Physical Exam ED Vital Signs: Vital Signs - 24 hr 10/22/23 20:03 10/22/23 21:05 10/22/23 21:07 Temperature 97.1 F 98.2 F 98.2 F Pulse Rate 76 66 66 Respiratory Rate 18 16 16 Blood Pressure 124/82 125/72 125/72 Pulse Oximetry 99 98 98 Oxygen Delivery Method Room Air Room Air Room Air BMI result Body Mass Index 43.7 Vital signs were normal Exam: Lower extremities: The patient has multiple areas on her lower extremity that are consistent with mosquito bites. She has 1 area on her left inner thigh that is consistent with 3 mosquito bites and a group with proximally 4 cm of erythema with increased warmth. This area is tender to palpation with no flocculence or induration. She has another area on her right lateral thigh with an incident by and proximally 1 cm of ecchymosis with no increased warmth or tenderness this area. Medications Administered Discontinued Medications Generic Name Dose Route Start Last Admin Trade Name Chasity PRN Reason Stop Dose Admin Doxycycline Monohydrate 100 mg 10/22/23 20:27 10/22/23 20:56 Doxycycline Monohydrate 100 Mg Capsule PO 10/22/23 20:28 100 mg ONCE ONE Administration Prednisone 40 mg 10/22/23 20:27 10/22/23 20:56 Prednisone 20 Mg Tablet PO 10/22/23 20:28 40 mg ONCE ONE Administration Medical Decision Making Medical Decision Making MDM Narrative: 57-year-old female with a history of hypertension who presents emergency department for evaluation of multiple areas of insect bites to her lower extremities with several areas being painful and pruritic. Vital signs were normal. Physical examination did reveal 1 area on her left inner thigh with 3 insect bites with 4 cm of erythema and increased warmth which is consistent with cellulitis with no evidence of an abscess by physical exam. Differential diagnosis: ?Includes but is not limited to cellulitis, allergic reaction Patient was initially treated with the following: Prednisone 40 mg orally, doxycycline 100 mg orally Course: The patient has multiple insect bites to her lower extremities which are most likely consistent with mosquito bites with 1 area on her left inner thigh which is concerning for possible cellulitis. The patient will be treated with doxycycline 100 mg q.12h x5 days with the 1st dose given in the emergency department. She was also treated with prednisone 40 mg once a day for 5 days and given her 1st dose here in the emergency department. She was given printed and verbal instructions and discharged home. Chronic Conditions Patient?s care impacted by: Hypertension Discharge Plan Discharge Clinical Impression: Cellulitis of left thigh, Insect bite Patient Disposition: Home, Self-Care Additional Instructions: Cellulitis Discharge Instructions You have an infection of your skin on your left inner thigh this was caused by the insect bite. This is called cellulitis. This is usually caused by bacteria on your skin that gets under your skin and then causes the infection Take doxycycline 100 mg pills, 1 pill every 12 days for 5 days This is an antibiotic that should help your body fight off the infection. Keep the area of cellulitis elevated to help reduce swelling in the infected area and this helps with the healing process Also apply a heating pad on low or a warm compress for 15 minutes, 4-6 times a day. This will increase the blood flow to the area and will bring white blood cells to the area which will help your body fight off the infection. Also take Tylenol( acetaminophen) 500 mg pills, 2 pills every 6 hours as needed for pain. I am also starting you on prednisone to help reduce the inflammation around the other insect bites. Take prednisone 20 mg pills, 3 pills once a day for 5 days. While you ?are taking prednisone, do not take any NSAIDs (Motrin, Advil, ibuprofen, Aleve, naproxen). If we serenity a line around the area of cellulitis, the redness should withdraw from the line in the next 1-3 days. If the redness crosses the line this is a sign that the infection is getting worse and you should see your doctor or return to the Emergency Department for a recheck. Other signs of worsening infection include fever, chills, weakness, increased pain, increased redness, increased swelling or red streaks going away from the area of infection. If you develop any of these symptoms or any other symptoms that are concerning to you, see your doctor immediately or return to the Emergency Department. Follow up with your doctor in 3 days for a recheck Please read the other printed instructions that we printed for you. Prescriptions: New diphenhydramine HCl 25 mg capsule 25 mg PO Q6H PRN (Reason: Itchiness) Qty: 14 0RF doxycycline hyclate 100 mg tablet 100 mg PO Q12H 5 Days Qty: 10 0RF acetaminophen [Tylenol Extra Strength] 500 mg tablet 1,000 mg PO Q6H PRN (Reason: fever or pain) Qty: 20 0RF prednisone 20 mg tablet 40 mg PO DAILY 5 Days Qty: 10 0RF No Action ezetimibe 10 mg tablet 10 mg PO DAILY Qty: 90 3RF spironolactone 50 mg tablet 50 mg PO BID 90 Days Qty: 180 1RF atorvastatin 80 mg tablet 80 mg PO DAILY Qty: 90 3RF nifedipine 30 mg tablet extended release 30 mg PO DAILY Qty: 90 1RF levothyroxine 88 mcg tablet 88 mcg PO DAILY Qty: 90 1RF metoprolol succinate 100 mg tablet extended release 24 hr 100 mg PO BID Qty: 180 1RF Praluent Pen 75 mg/mL pen injector 75 mg subcut Q2W 90 Days Qty: 7 3RF levothyroxine 100 mcg capsule 100 mcg PO .COMPLEX Qty: 12 0RF Rx Instructions: 100 mcg orally once a week; take 88mcg all other days of the week aspirin [Adult Aspirin Regimen] 81 mg tablet,delayed release (DR/EC) 81 mg PO DAILY 90 Days Qty: 90 3RF naproxen 500 mg tablet 500 mg PO BID 14 Days Qty: 28 0RF tamsulosin 0.4 mg capsule 0.4 mg PO BEDTIME 14 Days Qty: 14 0RF nitrofurantoin macrocrystal 100 mg capsule 100 mg PO BID 5 Days Qty: 10 0RF Rx Instructions: Take twice a day with food for 5 days. albuterol sulfate [Ventolin HFA] 90 mcg/actuation HFA aerosol inhaler 1 inh inhalation QID PRN (Reason: shortness of breath or wheezing) Qty: 8.5 1RF lorazepam 1 mg tablet 1 mg PO BEDTIME PRN citalopram 20 mg tablet 20 mg PO DAILY PRN Biktarvy 50-200-25 mg tablet 1 tab PO DAILY 90 Days Qty: 90 1RF bisacodyl [Dulcolax (bisacodyl)] 5 mg tablet,delayed release (DR/EC) 20 mg PO ONCE 1 Days Qty: 4 0RF Rx Instructions: take 4 tabs at noon the day before your colonoscopy polyethylene glycol 3350 [Miralax] 17 gram/dose powder 238 g PO ONCE Qty: 238 0RF Rx Instructions: As directed by gastroenterology department at [facility] Interventions: ED Discharge Assessment Last Done: 10/22/23 21:07 Discharge Date/Time: 10/22/23 21:07 Print Language: Romansh
[2023-10-22] MEDS: Doxycycline Monohydrate 100 MG CAPSULE PO (20:56)
[2023-10-22] MEDS: predniSONE 20 MG TABLET 40 MG PO (20:56)
[2023-10-22 21:05] VITALS: BP 125/72; PULSE 66; RESP 16; TEMP 36.8; O2SAT 98
[2023-10-22 21:07] VITALS: BP 125/72; PULSE 66; RESP 16; TEMP 36.8; O2SAT 98
== END 2023-10-22 21:07 | disposition home or self-care (01) ==
PROVIDERS: Emergency Provider Emergency Medicine Emergency Medical Services; PCP Nurse Practitioner Family
DX: L03.116 Cellulitis of left lower limb (principal); S70.362A Insect bite (nonvenomous), left thigh, initial encounter; W57.XXXA Bitten or stung by nonvenomous insect and other nonvenomous arthropods, initial encounter; Y93.9 Activity, unspecified; Y92.9 Unspecified place or not applicable; Y99.9 Unspecified external cause status
CPT/HCPCS: 99283; 99284

== ENCOUNTER 2023-10-31 14:09 | Outpatient (REF) | payer OTHER, SELFPAY ==
[2023-10-31 14:51] LABS: Appearance Urine Clear; Color Urine Yellow; Glucose Urine UA Negative (Negative); Leukocyte Esterase Urine Negative (Negative); Nitrite Urine Negative (Negative); PH 5.5 (5.0-9.0); Specific Gravity - Urine 1.015 (1.005-1.025); UMIC TRIGGER UA YES; Urine Blood Small (1+) (Negative); Urine Ketones Negative (Negative); Urine Protein Negative (Neg-Trace)
[2023-10-31 15:00] LABS: Bacteria Urine None Seen (None Seen); Hyaline Casts Urine 0-2 /LPF (0-2); RBC Urine 0-2 /HPF (0-2); Squamous Epithelial Cell Urine 0-2 /HPF (0-2); WBC Urine 0-5 /HPF (0-5)
== END 2023-10-31 14:10 | disposition home or self-care (01) ==
LOC: HO.LAB 14:09
PROVIDERS: PCP Nurse Practitioner Family; Visit Provider Urology
DX: N39.0 Urinary tract infection, site not specified (principal)
CPT/HCPCS: 81001

== ENCOUNTER 2023-11-08 12:54 | Outpatient (AMB) | payer OTHER, SELFPAY ==
[2023-11-08 12:56] VITALS: BP 114/68; PULSE 84; TEMP 36.2; O2SAT 100; BMI 42.9
--- NOTE | 2023-11-08 12:56 | AM.OFFWIN_ITS ---
Intake Vital Signs 11/08/23 12:56 Height 5 ft 1 in Weight 227 lb 4 oz BMI 42.9 BP 114/68 Blood Pressure Location Rt brachial Position Sitting Pulse 84 Pulse Source Pulse Oximeter Temp 97.1 F Temp Source Temporal Artery Scan Pulse Oximetry (%) 100 Oxygen Delivery Method Room Air Intake Visit Reasons: EP possible uti/kidney stones Intake Note: Miriam is a 57 year old female who presents to the office today for a possible UTI/kidney stones. Pt states she started having pain a few weeks ago when she was told she had a kidney stone. Pt states the pain is back and this morning she had severe pain when urinating and lower back pain. Patient Tobacco Use Status: Never used Tobacco Allergies amlodipine [AMLODIPINE] Allergy (Unknown, Verified 11/08/23 12:58) RASH cephalexin [From KEFLEX] Allergy (Unknown, Verified 11/08/23 12:58) RASH levofloxacin [From LEVAQUIN] Allergy (Unknown, Verified 11/08/23 12:58) RASH HPI HPI Comments History of Present Illness Details 57 year old female who presents to the [facility] in clinic today for a possible UTI/kidney stones. Pt states she started having pain a few weeks ago when she was told she had a kidney stone. Pt states the pain is back and this morning she had severe pain when urinating and lower back pain. She is currently seeing [place] [facility]. She had CT scan Pelvis 10/12/23 1. Bilateral renal parenchymal calcifica tions. No collecting system calculi are seen. 2. Symmetric bladder wall thickening. 3. Incidental note made of bronchial thi ckening and traction bronchiectasis at the lung bases and degenerative changes in the spine. She is scheduled for Cystoscopy 11/20/23. 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 Mother Stroke Sister Diabetes mellitus Maternal Grandmother Unknown family medical history Brother Cancer Sister No problems noted. Brother No problems noted. Daughter Healthy female Social History Housing: Apartment Alcohol intake: current Alcohol intake frequency: holidays/special occasions only Patient Tobacco Use Status: Never used Tobacco e-Cigarette/Vaping Use: Never Used Second Hand Smoke Exposure: No Current occupational status: disabled Cognitive needs: No Hearing needs: No Vision needs: No Female Reproductive History Menstrual Age of Menarche: 13 Review of Systems Const All systems reviewed & are unremarkable except as noted in HPI and below Physical Exam Vital Signs: Last Vital Signs Temp 97.1 F 11/08/23 12:56 Pulse 84 11/08/23 12:56 BP 114/68 11/08/23 12:56 Pulse Ox 100 11/08/23 12:56 Oxygen Delivery Method Room Air 11/08/23 12:56 BMI result Body Mass Index 42.9 Const General: comfortable and no acute distress Nutritional Appearance: obese Orientation/consciousness: patient oriented x3 General: Yes no CVA tenderness Back/Spine/Pelvis Back: no CVA tenderness Neuro General: patient oriented x3, gait normal and moves all extremities Psych Speech and movement: Normal speech and movement present Results AMB Urinalysis, Automated UA Leukoctes 15 Gina/uL Last Edit by Anjali Fraga CMA on 11/08/23 13:13 UA Nitrite Negative Last Edit by Anjali Fraga CMA on 11/08/23 13:13 UA Urobilinogen 0.2 mg/dL Last Edit by Anjali Fraga CMA on 11/08/23 13:13 UA Protein 15 mg/dL Last Edit by Anjali Fraga CMA on 11/08/23 13:13 UA pH 5.5 Last Edit by Anjali Fraga CMA on 11/08/23 13:13 UA Blood 80 Americo/uL Last Edit by Anjali Fraga CMA on 11/08/23 13:13 UA Specific [place] 1.015 Last Edit by Anjali Fraga CMA on 11/08/23 13:13 UA Ketone Positive Last Edit by Anjali Fraga CMA on 11/08/23 13:13 UA Bilirubin 1 mg/dL Last Edit by Anjali Fraga CMA on 11/08/23 13:13 UA Glucose 0 mg/dL Last Edit by Anjali Fraga CMA on 11/08/23 13:13 Results Reviewed Results Reviewed: Laboratory Last Values Urine pH (Auto) 5.5 11/08/23 13:12 Specific [place] (Auto) 1.015 11/08/23 13:12 Urine Protein (Auto) 15 mg/dL 11/08/23 13:12 Glucose (UA)(Auto) 0 mg/dL 11/08/23 13:12 Urine Ketones (Auto) Positive 11/08/23 13:12 Urine Blood (Auto) 80 Americo/uL 11/08/23 13:12 Urine Nitrite (Auto) Negative 11/08/23 13:12 Urine Bilirubin (Auto) 1 mg/dL 11/08/23 13:12 Urine Urobilinogen (Auto) 0.2 mg/dL 11/08/23 13:12 Leukocyte Esterase (Auto) 15 Gina/uL 11/08/23 13:12 Assessment & Plan Assessment & Plan (1) Hematuria: Code(s): R31.9 - Hematuria, unspecified Qualifiers: Hematuria type: unspecified type Qualified Code(s): R31.9 - Hematuria, unspecified Plan: Ordered U/A and culture. Ordered Bactrim x 5 days. Hydrate with plenty of water. Rest F/u with Urology as scheduled. Cysto scheduled for 11/20/23 Orders: Orders UA CC w/rflx Micro + Cult Today R31.29 - Other microscopic hematuria AMB Urinalysis Automated Today Z13.9 - Encounter for screening, unspecified Medications: New sulfamethoxazole-trimethoprim 800-160 mg (Bactrim DS) 1 tab PO Q12H 10 tabs 0RF 5 days R31.9 - Hematuria, unspecified Changed From naproxen 500 mg PO BID 14 days 28 tabs 0RF R31.9 - Hematuria, unspecified To naproxen 500 mg PO BID 30 tabs 0RF R31.9 - Hematuria, unspecified Discontinued doxycycline hyclate Discontinued Reason: Patient Completed Course 100 mg PO Q12H 5 days 10 tabs 0RF prednisone Discontinued Reason: Patient Completed Course 40 mg (2 x 20 mg) PO DAILY 5 days 10 tabs 0RF spironolactone Discontinued Reason: Patient Completed Course 50 mg PO BID 90 days 180 tabs 1RF nitrofurantoin macrocrystal Take twice a day with food for 5 days. Discontinued Reason: Patient Completed Course 100 mg PO BID 5 days 10 caps 0RF N39.0 - Urinary tract infection, site not specified Coding Level of Care Code Est Pt Level 4 (99697) Diagnoses Hematuria, unspecified type R31.9 Hematuria type: unspecified type Time Spent (min) 20
== END 2023-11-08 14:06 | disposition home or self-care (01) ==
PROVIDERS: PCP Nurse Practitioner Family; Visit Provider Nurse Practitioner Family
DX: Z13.9 Encounter for screening, unspecified (principal); R31.9 Hematuria, unspecified
CPT/HCPCS: 81003; 99214

== ENCOUNTER 2023-11-08 13:21 | Outpatient (REF) | payer OTHER, SELFPAY ==
[2023-11-08 16:34] LABS: Appearance Urine Cloudy; Color Urine Yellow; Glucose Urine UA Negative (Negative); Leukocyte Esterase Urine Moderate (2+) (Negative); Nitrite Urine Negative (Negative); PH 5.5 (5.0-9.0); Specific Gravity - Urine 1.015 (1.005-1.025); UMIC TRIGGER UACC YES; Urine Blood Small (1+) (Negative); Urine Ketones Trace mg/dL (Negative); Urine Protein 30 (1+) mg/dL (Neg-Trace)
[2023-11-08 17:09] LABS: Bacteria Urine None Seen (None Seen); UACC Culture Trigger YES; WBC Urine 21-50 /HPF (0-5)
== END 2023-11-08 13:22 | disposition home or self-care (01) ==
LOC: HO.LAB 13:21
PROVIDERS: Visit Provider Nurse Practitioner Family
DX: R31.29 Other microscopic hematuria (principal)
CPT/HCPCS: 81001; 87086

== ENCOUNTER 2023-11-20 10:28 | Outpatient (AMB) | payer OTHER, SELFPAY ==
--- NOTE | 2023-11-20 10:30 | A.OFFVIS_ITS ---
Intake Visit Reasons: cysto/CT/urine cytology(CT 10/11) Intake Note: Patient is present for Cystoscopy/CT/URINE CYTOLOGY Urology Medication:TAMSULOSIN Antibiotic Allergy:NONE Blood Thinner:ASPIRIN Lot:[id number] Exp:06/01/2026 [employer] Con[employer] Required: No Allergies amlodipine [AMLODIPINE] Allergy (Unknown, Verified 12/13/23 15:10) RASH cephalexin [From KEFLEX] Allergy (Unknown, Verified 12/13/23 15:10) RASH levofloxacin [From LEVAQUIN] Allergy (Unknown, Verified 12/13/23 15:10) RASH Medication List - Last Reconciled 11/20/23 by Rah Mitchell MD acetaminophen (Tylenol Extra Strength) 1,000 mg (2 x 500 mg) PO Q6H PRN albuterol sulfate 90 mcg/actuation (Ventolin HFA) 1 inh inhalation QID PRN alirocumab (Praluent Pen) 75 mg subcut Q2W 90 days aspirin (Adult Aspirin Regimen) 81 mg PO DAILY 90 days atorvastatin 80 mg PO DAILY kauryvmie-uinyhfuw-ssfsklk ala 50-200-25 mg (Biktarvy) 1 tab PO DAILY 90 days bisacodyl (Dulcolax (bisacodyl)) 20 mg (4 x 5 mg) PO ONCE 1 day citalopram 20 mg PO DAILY PRN diphenhydramine HCl 25 mg PO Q6H PRN estradiol 0.01%(0.1mg/gram) (Estrace) use pea size amount on fingertip and apply at bedtime vaginally daily; ezetimibe 10 mg PO DAILY levothyroxine 88 mcg PO DAILY levothyroxine 100 mcg orally once a week; take 88mcg all other days of the week lorazepam 1 mg PO BEDTIME PRN metoprolol succinate ER 100 mg PO BID naproxen 500 mg PO BID nifedipine ER 30 mg PO DAILY nitrofurantoin monohyd/m-cryst 100 mg (Macrobid) 100 mg PO DAILY PRN polyethylene glycol 3350 (Miralax) 238 grams PO ONCE sulfamethoxazole-trimethoprim 800-160 mg (Bactrim DS) 1 tab PO Q12H 5 days tamsulosin 0.4 mg PO BEDTIME 14 days HPI Comments Details: 11/19/24--here for office cystoscopy. She states that she was recently treated with antibiotics for lower urinary tract symptoms of pain with urination. I reviewed CT scan imaging which showed parenchymal calcifications bilaterally no stones seen in the collecting system. Office cystoscopy no suspicious lesions mild erythematous changes consistent with cystitis. I have discussed prophylactic antibiotics Macrobid post sexual intercourse and vaginal estrogen therapy. Macrobid 100 mg post sexual activity p.r.n. Estrace vaginal cream pea- sized amount vaginally q.h.s. Review of chart: 09/27/23--Miriam is a 57-year-old female who presents as a new patient evaluation for microscopic hematuria. She is followed by renal for chronic kidney disease. She denies irritative voiding symptoms. She states her primary scheduled a CT scan which is pending on 11/15/23, and urine cytology was sent on 07/12/2023--negative for malignant cells. Patient with multiple medical conditions, HIV positive. I have discussed reasons for blood in the urine may include but are not limited to kidney stones, cancer in the urinary tract, kidney stone disease or inflammatory conditions of the urinary tract. I have discussed workup to include cystoscopy evaluation. Will schedule urine for cytology. 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 Mother Stroke Sister Diabetes mellitus Maternal Grandmother Unknown family medical history Brother Cancer Sister No problems noted. Brother No problems noted. Daughter Healthy female Social History Housing: Apartment Alcohol intake: current Alcohol intake frequency: holidays/special occasions only Patient Tobacco Use Status: Never used Tobacco e-Cigarette/Vaping Use: Never Used Second Hand Smoke Exposure: No Current occupational status: disabled Cognitive needs: No Hearing needs: No Vision needs: No Female Reproductive History Menstrual Age of Menarche: 13 Review of Systems Const All systems reviewed & are unremarkable except as noted in HPI and below Reports no additional complaints Eyes Reports no additional complaints ENT Reports no additional complaints Card Reports no additional complaints Resp Reports no additional complaints GI Reports no additional complaints Reports as per HPI Musc Reports no additional complaints Skin/Breast Reports system reviewed and no additional complaints, except as documented Neuro Reports no additional complaints Psych Reports no additional complaints Endo Reports no additional complaints Josh/Lymph Reports no additional complaints Aller/Immun Reports no additional complaints Office Procedures Cystoscopy Consent Discussed risk and benefit or proposed procedure with the patient. Information consent for procedure given to the patient. Discussed technical aspects, risks, benefits and alternatives in full. Addressed all of the patient's questions and concerns regarding the procedure. The patient demonstrated knowledge and understanding. They wish to proceed with this procedure. Preparation The patient was prepped in the usual manner. A personal care worker was present and in the room. Genitalia was prepped with betadine solution in a sterile manner. Lidocaine Jelly 2% was placed into the urethra and 16Fr flexible Olympus cystoscope was inserted into the meatus after adequate lubrication. Procedure Time out per protocol performed. Bladder Inspection Bladder Inspection: The bladder was inspected in its entirety with utilization retroflexion displaying: Tumor(s): no suspicious bladder lesions visualized Trabeculation: NA Mucosal Erthema: mild Orifices: normal shape and position Urethra: normal Cystoscopy findings: erythematous changes consistent with cystitis, no suspicious bladder lesions visualized [id number] DISPOSABLE SCOPE URO-G FLEXIBLE SCOPE Procedure code (CPT) selection complete Office Meds lidocaine HCl 2 % mucosal jelly in applicator Performing Provider: Rah Mitchell MD [facility] Administered by: Yon Ames LPN on 11/20/23 10:59 Dose Route Admin Location Dispensed Lot Number Expiration Date [employer] Accounts Manager 10 mL intra-urethral 10 mL nitrofurantoin monohydrate/macrocrystals 100 mg capsule Performing Provider: Rah Mitchell MD [facility] Administered by: Yon Ames LPN on 11/20/23 10:59 Dose Route Admin Location Dispensed Lot Number Expiration Date [employer] Accounts Manager 100 mg PO 1 cap naproxen 500 mg tablet Performing Provider: Rah Mitchell MD Performing Location: [facility] Administered by: Yon Ames LPN on 11/20/23 10:59 Dose Route Admin Location Dispensed Lot Number Expiration Date [employer] Accounts Manager 500 mg PO 1 tab Results AMB Urinalysis, Automated UA Leukoctes 0 Gina/uL Last Edit by FAISAL Mera on 11/20/23 10:45 UA Nitrite Negative Last Edit by FAISAL Mera on 11/20/23 10:45 UA Urobilinogen 0.2 mg/dL Last Edit by FAISAL Mera on 11/20/23 10:4 5 UA Protein 15 mg/dL Last Edit by FAISAL Mera on 11/20/23 10:45 UA pH 5.5 Last Edit by FAISAL Mera on 11/20/23 10:45 UA Blood 25 Americo/uL Last Edit by FAISAL Mera on 11/20/23 10:45 UA Specific [place] 1.020 Last Edit by FAISAL Mera on 11/20/23 10: 45 UA Ketone Negative Last Edit by FAISAL Mera on 11/20/23 10:45 UA Bilirubin 0 mg/dL Last Edit by FAISAL Mera on 11/20/23 10:45 UA Glucose 0 mg/dL Last Edit by FAISAL Mera on 11/20/23 10:45 Results Reviewed Results Reviewed: Laboratory Last Values Urine pH (Auto) 5.5 11/20/23 10:44 Specific [place] (Auto) 1.020 11/20/23 10:44 Urine Protein (Auto) 15 mg/dL 11/20/23 10:44 Glucose (UA)(Auto) 0 mg/dL 11/20/23 10:44 Urine Ketones (Auto) Negative 11/20/23 10:44 Urine Blood (Auto) 25 Americo/uL 11/20/23 10:44 Urine Nitrite (Auto) Negative 11/20/23 10:44 Urine Bilirubin (Auto) 0 mg/dL 11/20/23 10:44 Urine Urobilinogen (Auto) 0.2 mg/dL 11/20/23 10:44 Leukocyte Esterase (Auto) 0 Gina/uL 11/20/23 10:44 Date of Service: 10/12/23 EXAMINATION: CT ABDOMEN AND PELVIS WITHOUT AND WITH CONTRAST CLINICAL INFORMATION: Microscopic hematuria. COMPARISON: Ultrasound abdomen 09/01/2022. CT abdomen/pelvis 02/27/2021. TECHNIQUE: Noncontrast CT of the abdomen and pelvis is performed followed by split bolus contrast-enhanced images using 85 mL Omnipaque 350 contrast.?Postcontrast imaging is performed during the combined nephrogram and excretion phase. Sagittal and coronal reformatted images were obtained on the technologist's workstation for both the precontrast and postcontrast phases. This CT examination was performed using dose optimization techniques as appropriate, variously including the following: *Automated exposure control *Adjustment of mA and/or kV according to patient size (this includes techniques or standardized protocols for targeted exams where dose is matched to indication/reason for exam; i.e. extremities or head) *Use of iterative reconstruction technique DLP: 1214 mGy-cm FINDINGS: LUNG BASES: Bronchial thickening and traction bronchiectasis are present at the lung bases. LIVER, GALLBLADDER, AND BILIARY TREE: The liver is normal in size, shape, and attenuation. No focal hepatic lesion or biliary ductal dilatation is present. The gallbladder is unremarkable with no evidence of radiopaque gallstones, gallbladder wall thickening, or obvious pericholecystic inflammatory changes. PANCREAS: Unremarkable. SPLEEN: Unremarkable. ADRENAL GLANDS: Unremarkable. KIDNEYS AND URETERS: The kidneys are normal in size, shape, and attenuation. There are 2 rounded areas of calcification seen in the left kidney one in the upper pole measuring 7 mm (5:246) and another in the mid kidney measuring 3 mm (5:302). A faint 3 mm area of calcification seen in the mid to lower right kidney (5:297). Similar findings can be seen on the 02/27/2021 CT scan. These do not appear to be in the renal collecting system but in the renal parenchyma. No hydronephrosis, hydroureter, or collecting system/ureteral calculi seen. Pelvicalyceal systems appear normal without filling defects or mucosal abnormalities. No renal masses are seen. No perinephric stranding. BLADDER: The bladder wall is symmetrically thickened. No bladder calculi are seen. GASTROINTESTINAL TRACT: The small and large bowel are unremarkable. No evidence of appendicitis. ABDOMINAL WALL: No significant hernia is appreciated. LYMPH NODES: No retroperitoneal lymphadenopathy. VASCULAR: Unremarkable. PELVIC VISCERA: The uterus and adnexa are unremarkable. OSSEUS STRUCTURES: Degenerative changes are present from L4 through S1. No bony destructive lesions. IMPRESSION: 1. Bilateral renal parenchymal calcifications. No collecting system calculi are seen. 2. Symmetric bladder wall thickening. Collected: 07/12/23 Location: [facility] Received: 07/14/23 Diagnosis Urine: Negative for high-grade urothelial carcinoma. COMMENT: Examination of a monolayer preparation slide shows many benign superficial squamous cells, occasional benign urothelial cells, occasional inflammatory cells, and few red blood cells. Clinical History Microscopic hematuria Material Received Urine Gross Description Received are 70 cc of clear yellow fluid from which a ThinPrep slide is prepared. Assessment & Plan Assessment & Plan (1) Hematuria: Code(s): R31.9 - Hematuria, unspecified (2) Cystitis: Code(s): N30.90 - Cystitis, unspecified without hematuria Category: Medical (3) Renal calcification: Code(s): N28.89 - Other specified disorders of kidney and ureter Category: Medical (4) Recurrent UTI: Code(s): N39.0 - Urinary tract infection, site not specified Category: Medical Plan I reviewed CT scan imaging which showed parenchymal calcifications bilaterally no stones seen in the collecting system. Office cystoscopy no suspicious lesions mild erythematous changes consistent with cystitis. I have discussed prophylactic antibiotics Macrobid post sexual intercourse and vaginal estrogen therapy. Macrobid 100 mg post sexual activity p.r.n. Estrace vaginal cream pea- sized amount vaginally q.h.s. Orders: Orders AMB Urinalysis Automated 11/20/23 Z13.9 - Encounter for screening, unspecified AMB Cystoscopy 11/20/23 R31.29 - Other microscopic hematuria Medications: New estradiol 0.01%(0.1mg/gram) (Estrace) use pea size amount on fingertip and apply at bedtime vaginally daily; 42.5 grams 2RF nitrofurantoin monohyd/m-cryst 100 mg (Macrobid) must administer with a meal/food 100 mg PO DAILY PRN 30 caps 2RF use post sexual activity Patient Instructions: The patient had an opportunity to ask questions regarding treatment plan. The patient expressed understanding and agreement with the above treatment plan. The patient is aware they should contact our office by phone for worsening of their current condition or the appearance of new symptoms. Compliance is encouraged with any medications and followup testing that is ordered. It is a privilege to be allowed the opportunity to participate in the urologic care of your patient. If you have any questions or concerns regarding treatment for the above conditions please do not hesitate to contact me. The office telephone contact is [phone]. This note is constructed in part using voice recognition software. While every effort has been made to ensure accuracy deckhand sponge boat errors may have been included. Yours sincerely, Rah Mitchell MD Coding Level of Care Code Est Pt Level 3 (28756) Diagnoses Hematuria R31.9 Cystitis N30.90 Renal calcification N28.89 Recurrent UTI N39.0 CPT Codes Cystoscopy - CPT: [id number] ([id number])
== END 2023-11-20 11:34 | disposition home or self-care (01) ==
PROVIDERS: PCP Nurse Practitioner Family; Visit Provider Urology
DX: R31.29 Other microscopic hematuria (principal); Z13.9 Encounter for screening, unspecified
CPT/HCPCS: 52000; 99213

== ENCOUNTER → 2023-11-20 10:28 | Outpatient (BNVA) | payer OTHER, SELFPAY | PROVIDERS: PCP Nurse Practitioner Family; Visit Provider Urology | DX: N30.91 Cystitis, unspecified with hematuria (principal); R31.29 Other microscopic hematuria; N28.89 Other specified disorders of kidney and ureter | CPT/HCPCS: 52000; 81003; 99212 ==

== ENCOUNTER 2023-12-13 15:15 | Outpatient (AMB) | payer OTHER, SELFPAY ==
--- NOTE | 2023-12-13 15:08 | MHC.OFFVIS ---
Intake Visit Reasons: discuss stones Intake Note: Patient is present for discuss stones Urology Medication:tamsulosin, macrobid, estrace Antibiotic Allergy:levofloxacin, Blood Thinner:none Gas Engineer Required: No Allergies amlodipine [AMLODIPINE] Allergy (Unknown, Verified 01/17/24 13:17) RASH cephalexin [From KEFLEX] Allergy (Unknown, Verified 01/17/24 13:17) RASH levofloxacin [From LEVAQUIN] Allergy (Unknown, Verified 01/17/24 13:17) RASH HPI Comments Details: 12/09/23--Patient with multiple medical conditions, HIV positive. She is followed for recurrent UTI's, hematuria, nephrolithiasis. Discussed- CTAP-10/12/23-left kidney upper pole 7 mm, mid kidney 3 mm, right kidney-3 mm calcification mid to lower, Similar findings can be seen on the 02/27/2021 CT scan. Plan will continue to monitor. Review of chart: 11/20/23--here for office cystoscopy. She states that she was recently treated with antibiotics for lower urinary tract symptoms of pain with urination. I reviewed CT scan imaging which showed parenchymal calcifications bilaterally no stones seen in the collecting system. Office cystoscopy no suspicious lesions mild erythematous changes consistent with cystitis. I have discussed prophylactic antibiotics Macrobid post sexual intercourse and vaginal estrogen therapy. Macrobid 100 mg post sexual activity p.r.n. Estrace vaginal cream pea-sized amount vaginally q.h.s. 11/15/23- urine cytology was sent on 07/12/2023--negative for malignant cells. Patient with multiple medical conditions, HIV positive. I have discussed reasons for blood in the urine may include but are not limited to kidney stones, cancer in the urinary tract, kidney stone disease or inflammatory conditions of the urinary tract. I have discussed workup to include cystoscopy evaluation. Will schedule urine for cytology. 09/27/23--Miriam is a 57-year-old female who presents as a new patient evaluation for microscopic hematuria. She is followed by renal for chronic kidney disease. She denies irritative voiding symptoms. She states her primary scheduled a CT scan which is pending. 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 Anxiety Chronic kidney disease, stage 2 (mild) Morbid obesity Other and unspecified hyperlipidemia Essential hypertension Atherosclerotic cardiovascular disease Pituitary microadenoma Vitamin D deficiency Graves disease Post-surgical hypothyroidism Osteoarthritis GERD (gastroesophageal reflux disease) Leukopenia Cervical radiculitis Lumbar radiculopathy Pernicious anemia Obstructive sleep apnea Raynaud's phenomenon Pituitary microadenoma 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 Mother Stroke Sister Diabetes mellitus Maternal Grandmother Unknown family medical history Brother Cancer Sister No problems noted. Brother No problems noted. Daughter Healthy female Social History Housing: Apartment Alcohol intake: current Alcohol intake frequency: holidays/special occasions only Patient Tobacco Use Status: Never used Tobacco e-Cigarette/Vaping Use: Never Used Second Hand Smoke Exposure: No Current occupational status: disabled Cognitive needs: No Hearing needs: No Vision needs: No Female Reproductive History Menstrual Age of Menarche: 13 Telehealth Telehealth Telehealth Platform: [facility] Location of provider rendering services: practice address Location of patient: address on file Patient Identification confirmed using: Name, : Yes Telehealth method: video Patient verbally consented to treatment: Yes Patient verbally consented to billing insurance company: Yes Patient informed of any privacy concerns related to visit: Yes Results Reviewed Results Reviewed: Date of Service: 10/12/23 EXAMINATION: CT ABDOMEN AND PELVIS WITHOUT AND WITH CONTRAST CLINICAL INFORMATION: Microscopic hematuria. COMPARISON: Ultrasound abdomen 09/01/2022. CT abdomen/pelvis 02/27/2021. TECHNIQUE: Noncontrast CT of the abdomen and pelvis is performed followed by split bolus contrast-enhanced images using 85 mL Omnipaque 350 contrast.?Postcontrast imaging is performed during the combined nephrogram and excretion phase. Sagittal and coronal reformatted images were obtained on the technologist's workstation for both the precontrast and postcontrast phases. This CT examination was performed using dose optimization techniques as appropriate, variously including the following: *Automated exposure control *Adjustment of mA and/or kV according to patient size (this includes techniques or standardized protocols for targeted exams where dose is matched to indication/reason for exam; i.e. extremities or head) *Use of iterative reconstruction technique DLP: 1214 mGy-cm FINDINGS: LUNG BASES: Bronchial thickening and traction bronchiectasis are present at the lung bases. LIVER, GALLBLADDER, AND BILIARY TREE: The liver is normal in size, shape, and attenuation. No focal hepatic lesion or biliary ductal dilatation is present. The gallbladder is unremarkable with no evidence of radiopaque gallstones, gallbladder wall thickening, or obvious pericholecystic inflammatory changes. PANCREAS: Unremarkable. SPLEEN: Unremarkable. ADRENAL GLANDS: Unremarkable. KIDNEYS AND URETERS: The kidneys are normal in size, shape, and attenuation. There are 2 rounded areas of calcification seen in the left kidney one in the upper pole measuring 7 mm (5:246) and another in the mid kidney measuring 3 mm (5:302). A faint 3 mm area of calcification seen in the mid to lower right kidney (5:297). Similar findings can be seen on the 02/27/2021 CT scan. These do not appear to be in the renal collecting system but in the renal parenchyma. No hydronephrosis, hydroureter, or collecting system/ureteral calculi seen. Pelvicalyceal systems appear normal without filling defects or mucosal abnormalities. No renal masses are seen. No perinephric stranding. BLADDER: The bladder wall is symmetrically thickened. No bladder calculi are seen. GASTROINTESTINAL TRACT: The small and large bowel are unremarkable. No evidence of appendicitis. ABDOMINAL WALL: No significant hernia is appreciated. LYMPH NODES: No retroperitoneal lymphadenopathy. VASCULAR: Unremarkable. PELVIC VISCERA: The uterus and adnexa are unremarkable. OSSEUS STRUCTURES: Degenerative changes are present from L4 through S1. No bony destructive lesions. IMPRESSION: 1. Bilateral renal parenchymal calcifications. No collecting system calculi are seen. 2. Symmetric bladder wall thickening. Collected: 07/12/23 Location: [facility] Received: 07/14/23 Diagnosis Urine: Negative for high-grade urothelial carcinoma. COMMENT: Examination of a monolayer preparation slide shows many benign superficial squamous cells, occasional benign urothelial cells, occasional inflammatory cells, and few red blood cells. Clinical History Microscopic hematuria Material Received Urine Gross Description Received are 70 cc of clear yellow fluid from which a ThinPrep slide is prepared. Assessment & Plan Assessment & Plan (1) Hematuria: Code(s): R31.9 - Hematuria, unspecified (2) Renal calcification: Code(s): N28.89 - Other specified disorders of kidney and ureter Category: Medical (3) Recurrent UTI: Code(s): N39.0 - Urinary tract infection, site not specified Category: Medical Plan I reviewed CT scan imaging which showed parenchymal calcifications bilaterally no stones seen in the collecting system. Cont prophylactic antibiotics Macrobid post sexual intercourse and vaginal estrogen therapy. Macrobid 100 mg post sexual activity p.r.n. Estrace vaginal cream pea-sized amount vaginally q.h.s. Monitor kidney stones Patient Instructions: The patient had an opportunity to ask questions regarding treatment plan. The patient expressed understanding and agreement with the above treatment plan. The patient is aware they should contact our office by phone for worsening of their current condition or the appearance of new symptoms. Compliance is encouraged with any medications and followup testing that is ordered. It is a privilege to be allowed the opportunity to participate in the urologic care of your patient. If you have any questions or concerns regarding treatment for the above conditions please do not hesitate to contact me. The office telephone contact is [phone]. This note is constructed in part using voice recognition software. While every effort has been made to ensure accuracy sewing line baler errors may have been included. Yours sincerely, Rah Mitchell MD Coding Level of Care Code Tele Est Pt Level 4 (77234) Diagnoses Hematuria R31.9 Renal calcification N28.89 Recurrent UTI N39.0
== END 2023-12-13 16:00 | disposition home or self-care (01) ==
LOC: HO.HUSH 15:15
PROVIDERS: PCP Nurse Practitioner Family; Visit Provider Urology
DX: R31.9 Hematuria, unspecified (principal); N28.89 Other specified disorders of kidney and ureter; N39.0 Urinary tract infection, site not specified
CPT/HCPCS: 99214

== ENCOUNTER → 2023-12-13 15:15 | Outpatient (BNVA) | payer OTHER, SELFPAY | PROVIDERS: PCP Nurse Practitioner Family; Visit Provider Urology ==

== ENCOUNTER 2024-01-09 14:00 | Outpatient (REF) | payer OTHER, SELFPAY ==
[2024-01-09 18:08] LABS: Alanine Aminotransferase 20 U/L (0-31); Albumin Level 4.3 g/dL (3.5-5.0); Alkaline Phosphatase 126 U/L (39-117); Anion Gap 13 (12-20); Aspartate Amino Transferase 23 U/L (5-31); Bilirubin Direct 0.2 mg/dL (0.0-0.5); Bilirubin Total 0.7 mg/dL (0.0-1.0); Blood Urea Nitrogen 13 mg/dL (9-16); Carbon Dioxide 28 mmol/L (22-29); Chloride 106 mmol/L (96-108); Estimated Glomerular Filt Rate 52; Glucose Random 86 mg/dL (60-115); Potassium 3.8 mmol/L (3.3-5.1); Sodium 143 mmol/L (135-145); Total Protein 7.9 g/dL (6.5-8.0)
[2024-01-11 16:53] LABS: HIV RNA PCR Qn Copies NOT DETECTED copies/mL (NOT DETECTED); HIV RNA PCR Qn Log Copies NOT DETECTED (NOT DETECTED)
[2024-01-13 16:43] LABS: Absolute CD3 Count 1961 cells/uL (840-3060); Absolute CD4 Count 958 cells/uL (490-1740); Absolute CD8 Count 1059 cells/uL (180-1170); Absolute Lymphocytes 2363 cells/uL (850-3900); Percent CD3 Cells 83 % (57-85); Percent CD4 Cells 41 % (30-61); Percent CD8 Cells 45 % (12-42)
== END 2024-01-09 14:01 | disposition home or self-care (01) ==
LOC: HO.LAB 14:00
PROVIDERS: Absent Provider Nurse Practitioner Family; PCP Nurse Practitioner Family; Visit Provider Internal Medicine
DX: B20 Human immunodeficiency virus [HIV] disease (principal)
CPT/HCPCS: 36415; 80048; 80076; 86359; 86360; 87536

== ENCOUNTER 2024-01-17 09:51 | Outpatient (REF) | payer OTHER, SELFPAY ==
[2024-01-17 11:40] LABS: MANUAL DIFF FLAG NO
[2024-01-17 11:59] LABS: Basophils Percent Auto 0.4 % (0-2); Eosinophils Percent Auto 0.8 % (0-4); Hematocrit 41.2 % (37.0-47.0); Hemoglobin 13.2 g/dl (12.0-16.0); Imm Gran Abs Auto 0.01 X10*3/uL (0.00-0.03); Imm Gran Pct Auto 0.2 % (0.0-0.4); Lymphocytes Absolute Auto 2.5 X10*3/uL (1.2-4.9); Lymphocytes Percent Auto 53.7 % (20-40); Mean Corpuscular Hemoglobin 27.7 pg (27.0-33.0); Mean Corpuscular Volume 86.4 fL (80.0-98.0); Mean Platelet Volume 10.4 fL (9.4-12.3); Monocytes Absolute Auto 0.5 X10*3/uL (0.1-1.2); Monocytes Percent Auto 10.4 % (2-11); Neutrophils Absolute Auto 1.6 x10*3/uL (2.0-8.3); Neutrophils Percent Auto 34.5 % (45-73); Platelet Count 236 X10*3/uL (160-400); Red Blood Count 4.77 X10*6/uL (4.20-5.50); Red Cell Distribution Width 15.1 % (11.0-16.0); White Blood Count 4.7 X10*3/uL (4.8-10.8)
[2024-01-17 12:29] LABS: Alanine Aminotransferase 20 U/L (0-31); Albumin Level 4.4 g/dL (3.5-5.0); Alkaline Phosphatase 130 U/L (39-117); Anion Gap 14 (12-20); Aspartate Amino Transferase 23 U/L (5-31); Bilirubin Total 0.7 mg/dL (0.0-1.0); Blood Urea Nitrogen 14 mg/dL (9-16); Calcium 10.1 mg/dL (8.4-10.2); Carbon Dioxide 26 mmol/L (22-29); Chloride 107 mmol/L (96-108); Cholesterol 124 mg/dL (<200); Estimated Glomerular Filt Rate 42; Glucose Fasting 98 mg/dL (60-99); HDL Cholesterol 43 mg/dL (>40); LDL Cholesterol Calculated 66 mg/dL (<100); Potassium 4.4 mmol/L (3.3-5.1); Sodium 143 mmol/L (135-145); Total Protein 8.1 g/dL (6.5-8.0); Triglycerides 75 mg/dL (<150)
[2024-01-17 12:41] LABS: TSH reflex Free T4 0.76 uIU/mL (0.32-4.0)
[2024-01-17 12:56] LABS: Folate 9.3 ng/mL (> or = 4.0); Vitamin B12 219 pg/mL (200-900)
[2024-01-19 17:13] LABS: Homocysteine 16.7 umol/L (<10.4)
[2024-01-27 10:43] LABS: Methylmalonic Acid 532 nmol/L (55-335)
== END 2024-01-17 09:52 | disposition home or self-care (01) ==
LOC: HO.HMGCLDS 09:51
PROVIDERS: PCP Nurse Practitioner Family; Visit Provider Nurse Practitioner Family
DX: E53.8 Deficiency of other specified B group vitamins (principal); E78.5 Hyperlipidemia, unspecified; N28.89 Other specified disorders of kidney and ureter; B20 Human immunodeficiency virus [HIV] disease; E55.9 Vitamin D deficiency, unspecified; Z79.899 Other long term (current) drug therapy; Z23 Encounter for immunization
CPT/HCPCS: 36415; 80053; 80061; 82306; 82607; 82746; 83090; 83921; 84443; 85025; 90471; 90656; 90677; 96127; 99212

== ENCOUNTER 2024-01-17 09:51 | Outpatient (AMB) | payer OTHER, SELFPAY ==
--- NOTE | 2024-01-17 09:54 | MHC.PC.OV ---
Vital Signs 01/17/24 09:58 Height 5 ft 1 in Weight 222 lb BMI 41.9 BP 120/70 Blood Pressure Location Rt brachial Position Sitting Pulse 64 Pulse Source Pulse Oximeter Pulse Oximetry (%) 98 Intake Visit Reasons: 6M F/U Intake Note: pt is here for 6 month follow up, requesting flu vaccine today Allergies amlodipine [AMLODIPINE] Allergy (Unknown, Verified 01/17/24 10:19) RASH cephalexin [From KEFLEX] Allergy (Unknown, Verified 01/17/24 10:19) RASH levofloxacin [From LEVAQUIN] Allergy (Unknown, Verified 01/17/24 10:19) RASH Medication List - Last Reconciled 01/17/24 by Kenroy Freeman, OTILIA-DELMI acetaminophen (Tylenol Extra Strength) 1,000 mg (2 x 500 mg) PO Q6H PRN albuterol sulfate 90 mcg/actuation (Ventolin HFA) 1 inh inhalation QID PRN alirocumab (Praluent Pen) 75 mg subcut Q2W 90 days aspirin (Adult Aspirin Regimen) 81 mg PO DAILY 90 days atorvastatin 80 mg PO DAILY mfvimorft-ofpinxyr-vndmocd ala 50-200-25 mg (Biktarvy) 1 tab PO DAILY 90 days citalopram 20 mg PO DAILY PRN estradiol 0.01%(0.1mg/gram) (Estrace) use pea size amount on fingertip and apply at bedtime vaginally daily; ezetimibe 10 mg PO DAILY levothyroxine 88 mcg PO DAILY levothyroxine 100 mcg orally once a week; take 88mcg all other days of the week lorazepam 1 mg PO BEDTIME PRN metoprolol succinate ER 100 mg PO BID naproxen 500 mg PO BID nifedipine ER 30 mg PO DAILY Tobacco use date assessed: 07/18/23 Dental Screening Dental Screen Date: 07/18/23 HPI 6M F/U HPI Details Pt has a hx of B12 deficiency. Will order labs. Dyslipidemia: Pt is taking atorvastatin 80mg, ezetimibe 10mg, and praluent. Will order labs. Pt follows up with infectious disease, urology, nephrology, endo, cardiology, and pulmonology. Denies fever, chills, and dizziness. Encouraged pt to obtain shingles vaccine from her pharmacy. 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 Mother Stroke Sister Diabetes mellitus Maternal Grandmother Unknown family medical history Brother Cancer Sister No problems noted. Brother No problems noted. Daughter Healthy female Social History Housing: Apartment Alcohol intake: current Alcohol intake frequency: holidays/special occasions only Patient Tobacco Use Status: Never used Tobacco e-Cigarette/Vaping Use: Never Used Second Hand Smoke Exposure: No Current occupational status: disabled Cognitive needs: No Hearing needs: No Vision needs: No Female Reproductive History Menstrual Age of Menarche: 13 Questionnaire PHQ-9 Over the last 2 weeks, how often have you been bothered by any of the following problems? 1. Little interest or pleasure in doing things: not at all 2. Feeling down, depressed, or hopeless: not at all 3. Trouble falling or staying asleep, or sleeping too much: several days 4. Feeling tired or having little energy: several days 5. Poor appetite or overeating: several days 6. Feeling bad about yourself - or that you are a failure or have let yourself or your family down: not at all 7. Trouble concentrating on things, such as reading the newspaper or watching television: not at all 8. Moving or speaking so slowly that other people could have noticed. Or the opposite - being so fidgety or restless that you have been moving around a lot more than usual: not at all 9. Thoughts that you would be better off or of hurting yourself in some way: not at all Total score: 3 Depression Screening Interpretation: Negative Depression Screening Done: Yes 15747 - PHQ-9 Billing: Yes Source: Developed by Drs. Bud Mosquera, Glory Bullock, Osmar Chamberlain and colleagues, with an educational renetta from [employer]. Thrive Questionnaire Date Thrive assessed: 01/17/24 I am a: Patient What is your living situation today?: I have a steady place to live Within the past 12 months, did the food you bought not last and you didn't have the money to get more?: Sometimes True Within the past 12 months, did you worry whether your food would run out before you got money to buy more?: Sometimes True Do you have trouble paying for medicines?: No Do you have trouble getting transportation to medical appointments?: No Do you have trouble paying your heating and electricity bill?: No Do you have trouble taking care of your child, family member or friend?: No Do you have trouble with day-to-day activities such as bathing, preparing meals, shopping, managing finances, etc.?: No Are you interested in more education?: No Please select the resources that you would like help with: None Currently or been in a relationship where the following occur: No concerns reported THRIVE Score: 2 AUDIT C Alcohol Use Questionnaire (AUDIT-C) 1. How often do you have a drink containing alcohol?: Monthly or less 2. How many drinks containing alcohol do you have on a typical day when you are drinking?: 1 or 2 3. How often do you have six or more drinks on one occasion?: Never Total Score: 1 Score Reviewed/Action Taken: Yes BRITTNEY-7 AMB Questionnaire BRITTNEY-7 Date BRITTNEY - 7 assessed: 01/17/24 Feeling nervous, anxious, or on edge: 0 = Not at all Not being able to stop or control worryin = Not at all Worrying too much about different things: 0 = Not at all Trouble relaxin = Not at all Being so restless that it is hard to sit still: 0 = Not at all Becoming easily annoyed or irritable: 0 = Not at all Feeling afraid as if something awful might happen: 0 = Not at all Total BRITTNEY-7 score (0-4 normal; 5-9 mild; 10-14 moderate; 15-21 severe): 0 Source: Developed by Drs. Bud Mosquera, Glory Bullock, Osmar Chamberlain and colleagues, with an educational renetta from [employer]. BRITTNEY-7 Assessment Billing BRITTNEY-7 Assessment Tool: BRITTNEY-7 Assessment 57998 Review of Systems Const Reports as per HPI Physical exam (Primary Care) Vital Signs: Last Vital Signs Pulse 64 01/17/24 09:58 BP 120/70 01/17/24 09:58 Pulse Ox 98 01/17/24 09:58 BMI result Body Mass Index 41.9 Tobacco/Smoking Status: Tobacco use Status Tobacco use date assessed 07/18/23 01/17/24 09:55 Patient Tobacco Use Status Never used Tobacco 01/17/24 09:55 e-Cigarette/Vaping Use Never Used 01/17/24 09:55 PHQ-9: PHQ-9 Score PHQ-9: Total score 3 01/17/24 10:20 Depression Screening Interpretation: Negative Thrive Assessment: Date of Thrive Assessment Date Thrive assessed 01/17/24 01/17/24 10:03 Currently or been in a relationship where the following occur: No concerns reported Const General: cooperative Nutritional Appearance: obese morbidly obese Orientation/consciousness: patient oriented x3 Resp Effort & Inspection: normal respiratory effort Auscultation: clear to auscultation bilaterally Cardio Rate: regular rate Rhythm: regular rhythm Heart sounds: S1 normal heart sound present and S2 normal heart sound present Neuro General: patient oriented x3 Psych Appearance: grossly normal Mental Status: mental status grossly normal Speech and movement: Normal speech and movement present Affect: normal affect Attitude: cooperative Thought process: Normal thought process present Thought content: Normal thought content present Insight: Good insight present (Psych) Judgement: Good judgement present (Psych) Office Procedures Flu Questionnaire Does the patient have a severe egg allergy?: No Does the patient have severe life threatening allergies?: No Does the patient have a fever or illness today?: No Has the patient ever had Guillain-Byrnedale Syndrome?: No Has the patient ever had any past reaction to a flu shot?: No Immunizations Fluarix Triv [id number] (PF) 45 mcg (15 mcg x 3)/0.5 mL IM syringe Performing Provider: NASH Hale [place] [facility] [place] [facility] Administered by: Robbie Rosales CMA on 01/17/24 10:06 Dose Route Admin Location Dispensed Lot Number Expiration Date [facility] Practice Clinician 0.5 mL IM Left Deltoid 0.5 mL [id number] 10/14/24 23607-283-83 [employer] VIS Given Date VIS Provided VIS Publication Date 01/17/24 Single Vaccine 20 Eligibility Eligibility Date Funding Source Not VFC Eligible 01/17/24 Private pneumoc 20-miah conj-dip cr(PF) 0.5 mL IM syringe Performing Provider: NASH Hale Performing Location[place] [facility] [place] [facility] Administered by: Robbie Rosales CMA on 01/17/24 10:40 Dose Route Admin Location Dispensed Lot Number Expiration Date [facility] Practice Clinician 0.5 mL IM Left Deltoid 0.5 mL [id number] 04/05/25 3893-3045-28 [employer] VIS Given Date VIS Provided VIS Publication Date 01/17/24 Single Vaccine 21 Eligibility Eligibility Date Funding Source Not VF Eligible 01/17/24 Private Coding Level of Care Code Est Pt Level 3 (78552) Diagnoses Vitamin B12 deficiency E53.8 Dyslipidemia E78.5 Renal calcification N28.89 Additional Codes BRITTNEY-7 Assessment Billing - BRITTNEY-7 Assessment Tool: BRITTNEY-7 Assessment 96297 ([id number]) Assessment & Plan Assessment & Plan (1) Vitamin B12 deficiency: Code(s): E53.8 - Deficiency of other specified B group vitamins Category: Medical (2) Dyslipidemia: Code(s): E78.5 - Hyperlipidemia, unspecified Category: Medical Plan: on a statin, praulent, generic (zetia) (3) Renal calcification: Code(s): N28.89 - Other specified disorders of kidney and ureter Category: Medical Plan The patient agreed to the use of a medical office rep for this encounter. Scribed for NASH Coombs by Monet Rahman, medical office rep, on 01/17/2024 at 10:20 EST. Orders: Orders Influenza [id number] Immunization Today Z23 - Encounter for immunization Complete Blood Count Auto Diff Today E53.8 - Deficiency of other specified B group vitamins Lipid Panel Today E78.5 - Hyperlipidemia, unspecified Comprehensive [place]. Panel Fast Today E78.5 - Hyperlipidemia, unspecified TSH reflex Free T4 Today E78.5 - Hyperlipidemia, unspecified Vitamin D 25-OH Total Today E55.9 - Vitamin D deficiency, unspecified Vitamin B12 and Folate Today E53.8 - Deficiency of other specified B group vitamins Methylmalonic Acid Today E53.8 - Deficiency of other specified B group vitamins Homocysteine Today E53.8 - Deficiency of other specified B group vitamins Pneumococcal 20 Immunization Today Z23 - Encounter for immunization
[2024-01-17 09:58] VITALS: BP 120/70; PULSE 64; O2SAT 98; BMI 41.9
== END 2024-01-17 10:44 | disposition home or self-care (01) ==
PROVIDERS: PCP Nurse Practitioner Family; Visit Provider Nurse Practitioner Family
DX: E53.8 Deficiency of other specified B group vitamins (principal); E78.5 Hyperlipidemia, unspecified; N28.89 Other specified disorders of kidney and ureter; Z23 Encounter for immunization

== ENCOUNTER 2024-01-17 13:09 | Outpatient (AMB) | payer OTHER, SELFPAY ==
--- NOTE | 2024-01-17 13:13 | MHC.OFFVIS ---
Vital Signs 01/17/24 13:16 Height 5 ft 1 in Weight 226 lb BMI 42.7 BP 123/80 Blood Pressure Location Lt brachial Position Sitting Pulse 74 Pulse Source Pulse Oximeter Pulse Oximetry (%) 98 Oxygen Delivery Method Room Air Intake Visit Reasons: 6 mth,f/u,HIV Allergies amlodipine [AMLODIPINE] Allergy (Unknown, Verified 01/17/24 13:17) RASH cephalexin [From KEFLEX] Allergy (Unknown, Verified 01/17/24 13:17) RASH levofloxacin [From LEVAQUIN] Allergy (Unknown, Verified 01/17/24 13:17) RASH HPI HPI 6 mth,f/u,HIV: Details: She reports doing well. She takes Biktarvy. Her CD4 count is 959 and viral load on 01/08. Her cholesterol is 124 and LDL 66. She has a boyfriend of 10 months and is happy. 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 Mother Stroke Sister Diabetes mellitus Maternal Grandmother Unknown family medical history Brother Cancer Sister No problems noted. Brother No problems noted. Daughter Healthy female Social History Housing: Apartment Alcohol intake: current Alcohol intake frequency: holidays/special occasions only Patient Tobacco Use Status: Never used Tobacco e-Cigarette/Vaping Use: Never Used Second Hand Smoke Exposure: No Current occupational status: disabled Cognitive needs: No Hearing needs: No Vision needs: No Female Reproductive History Menstrual Age of Menarche: 13 Review of Systems Const All systems reviewed & are unremarkable except as noted in HPI and below Physical Exam Vital Signs: Last Vital Signs Pulse 74 01/17/24 13:16 BP 123/80 01/17/24 13:16 Pulse Ox 98 01/17/24 13:16 Oxygen Delivery Method Room Air 01/17/24 13:16 BMI result Body Mass Index 42.7 Const General: cooperative Orientation/consciousness: patient oriented x3 HEENT Head: Yes normal to inspection Mouth: Normal oral and palatal mucosa present Eyes General: appearance normal, both eyes and all related structures Pupils: Equal, round and reactive pupils present Resp Effort & Inspection: normal respiratory effort Cardio Rate: regular rate Rhythm: regular rhythm GI Palpation (GI): Soft to palpation and nontender General: Yes no CVA tenderness Back/Spine/Pelvis Back: no CVA tenderness Skin General skin exam: no rashes or lesions noted Neuro General: patient oriented x3 Cranial nerves: Yes CN's II-XII intact bilaterally and Yes Equal, round and reactive pupils present Extrem General: Yes normal to inspection Psych Appearance: grossly normal Assessment & Plan Assessment & Plan (1) HIV (human immunodeficiency virus infection): Code(s): B20 - Human immunodeficiency virus [HIV] disease Category: Medical (2) HIV (human immunodeficiency virus infection): Code(s): B20 - Human immunodeficiency virus [HIV] disease Category: Medical Plan Would continue Biktarvy. Check labs again in six months. She needs cervical Pap and rectal Pap also every 2-3 years. She should get bone density if not done. She should get STI check for GC/chlamydia if not done at Pap. Will check syphilis screen at next blood work. See in six months. Orders: Orders Basic Metabolic Panel 5 Months B20 - Human immunodeficiency virus [HIV] disease Syphilis Screen 5 Months B20 - Human immunodeficiency virus [HIV] disease T Spot TB 5 Months B20 - Human immunodeficiency virus [HIV] disease Complete Blood Count Auto Diff 5 Months B20 - Human immunodeficiency virus [HIV] disease Liver Panel 5 Months B20 - Human immunodeficiency virus [HIV] disease HIV-1 RNA QN PCR Expanded 5 Months B20 - Human immunodeficiency virus [HIV] disease Lymphocyte Subset Panel 3 5 Months B20 - Human immunodeficiency virus [HIV] disease Hepatitis C Antibody 5 Months B20 - Human immunodeficiency virus [HIV] disease Medications: Refilled ahcmskeuq-vnlxtphl-jpubtzq ala 50-200-25 mg (Biktarvy) 1 tab PO DAILY 90 tabs 1RF 90 days Coding Level of Care Code Est Pt Level 4 (19654) Diagnoses HIV (human immunodeficiency virus infection) B20
[2024-01-17 13:16] VITALS: BP 123/80; PULSE 74; O2SAT 98; BMI 42.7
== END 2024-01-17 13:57 | disposition home or self-care (01) ==
LOC: HO.HID 13:09
PROVIDERS: PCP Nurse Practitioner Family; Visit Provider Internal Medicine
DX: B20 Human immunodeficiency virus [HIV] disease (principal)
CPT/HCPCS: 99214

== ENCOUNTER 2024-01-31 15:27 | Outpatient (REF) | payer OTHER, SELFPAY ==
[2024-01-31 17:04] LABS: Vitamin B12 < 148 pg/mL (200-900)
[2024-02-03 16:23] LABS: Intrinsic Factor Antibodies Positive (Negative)
[2024-02-06 14:34] LABS: Parietal Cell Antibody 53.7 Unit (<=20.0)
== END 2024-01-31 15:28 | disposition home or self-care (01) ==
LOC: HO.LAB 15:27
PROVIDERS: PCP Nurse Practitioner Family; Visit Provider Nurse Practitioner Family
DX: E53.8 Deficiency of other specified B group vitamins (principal)
CPT/HCPCS: 36415; 82607; 82746; 83516; 86340

== ENCOUNTER 2024-02-06 10:54 | Outpatient (AMB) | payer OTHER, SELFPAY ==
--- NOTE | 2024-02-06 11:55 | AM.OFFVISNUR ---
Intake Visit Reasons: B-12 Intake Note: Pt arrived for B-12 injection. Allergies amlodipine [AMLODIPINE] Allergy (Unknown, Verified 01/17/24 13:17) RASH cephalexin [From KEFLEX] Allergy (Unknown, Verified 01/17/24 13:17) RASH levofloxacin [From LEVAQUIN] Allergy (Unknown, Verified 01/17/24 13:17) RASH Office Meds cyanocobalamin (vitamin B-12) 1,000 mcg/mL injection solution Performing Provider: NASH Hale Performing Location: [facility] [place] [facility] Administered by: Nancy Vogel RN on 02/06/24 11:55 Dose Route Admin Location Dispensed Lot Number Expiration Date [facility] Cooking Chef 1,000 mcg IM 1 mL [id number] 10/15/25 97546-979-48 HOMER BREWSTER Comments: Pt supplied Assessment & Plan Assessment & Plan Orders: Orders AMB Vitamin B12 Injection Patient Supplied Today E53.8 - Deficiency of other specified B group vitamins Medications: New cyanocobalamin (vitamin B-12) 1,000 mcg IM ONCE 1 mL 0RF E53.8 - Deficiency of other specified B group vitamins
== END 2024-02-06 12:01 | disposition home or self-care (01) ==
PROVIDERS: PCP Nurse Practitioner Family; Visit Provider Nurse Practitioner Family
DX: E53.8 Deficiency of other specified B group vitamins (principal)
CPT/HCPCS: J3420

== ENCOUNTER → 2024-02-06 10:54 | Outpatient (BNVA) | payer OTHER, SELFPAY | PROVIDERS: PCP Nurse Practitioner Family; Visit Provider Nurse Practitioner Family | DX: E53.8 Deficiency of other specified B group vitamins (principal) | CPT/HCPCS: 96372 ==

== ENCOUNTER 2024-02-08 09:10 | Outpatient (REF) | payer OTHER, SELFPAY ==
--- NOTE | ~2024-02-08 | MM_ITS ---
EXAMINATION: MM SCREENING DIGITAL BREAST TOMOSYNTHESIS, BILATERAL CLINICAL INFORMATION: Screening. Asymptomatic. COMPARISON: Mammography: Comparison is made with available priors TECHNIQUE: Digital breast mammography with tomosynthesis is performed in both the craniocaudal and mediolateral oblique views along with computer-aided detection (CAD). FINDINGS: There are scattered areas of fibroglandular density (ACR BI-RADS breast composition Category b). There are no significant masses, abnormal calcifications, or other abnormalities. MM/MM tomosynthesis screening BI IMPRESSION: No mammographic evidence of malignancy. ASSESSMENT: BI-RADS BI-RADS 1 - Negative RECOMMENDATION: Routine annual mammography screening. 1 year F/U This examination should not preclude the clinical evaluation of a suspicious palpable abnormality. This patient's information was entered into a reminder system with a target due date for their next mammogram. Electronically signed by: Vidhi Odonnell DO 02/19/2024 04:15 PM AVELINA
== END 2024-02-08 09:11 | disposition home or self-care (01) ==
LOC: HO.MAMMO 09:10
PROVIDERS: PCP Nurse Practitioner Family; Visit Provider Nurse Practitioner Family
DX: Z12.31 Encounter for screening mammogram for malignant neoplasm of breast (principal)
CPT/HCPCS: 77063; 77067

== ENCOUNTER → 2024-02-08 09:15 | Outpatient (BNV) | payer OTHER, SELFPAY | PROVIDERS: PCP Nurse Practitioner Family; Visit Provider Internal Medicine | DX: Z12.31 Encounter for screening mammogram for malignant neoplasm of breast (principal) | CPT/HCPCS: 77063; 77067 ==

== ENCOUNTER 2024-03-05 10:53 | Outpatient (AMB) | payer OTHER, SELFPAY ==
--- NOTE | 2024-03-05 11:32 | AM.OFFVISNUR ---
Intake Visit Reasons: B12 Intake Note: Pt arrived for monthly B-12 injection Allergies amlodipine [AMLODIPINE] Allergy (Unknown, Verified 01/17/24 13:17) RASH cephalexin [From KEFLEX] Allergy (Unknown, Verified 01/17/24 13:17) RASH levofloxacin [From LEVAQUIN] Allergy (Unknown, Verified 01/17/24 13:17) RASH Office Meds cyanocobalamin (vitamin B-12) 1,000 mcg/mL injection solution Performing Provider: NASH Hale [place] [facility] [place] Administered by: Nacny Vogel RN on 03/05/24 11:32 Dose Route Admin Location Dispensed Lot Number Expiration Date [facility] Roving [employer] 1,000 mcg IM right deltoid 1 mL [id number] 10/15/25 66961-155-96 HOMER BREWSTER Comments: Pt supplied Assessment & Plan Assessment & Plan Orders: Orders AMB Vitamin B12 Injection Patient Supplied Today E53.8 - Deficiency of other specified B group vitamins Medications: New cyanocobalamin (vitamin B-12) 1,000 mcg IM ONCE 1 mL 0RF E53.8 - Deficiency of other specified B group vitamins
== END 2024-03-05 13:43 | disposition home or self-care (01) ==
LOC: HO.HMCC 10:53
PROVIDERS: PCP Nurse Practitioner Family; Visit Provider Nurse Practitioner Family
DX: E53.8 Deficiency of other specified B group vitamins (principal)

== ENCOUNTER → 2024-03-05 10:53 | Outpatient (BNVA) | payer OTHER, SELFPAY | PROVIDERS: PCP Nurse Practitioner Family; Visit Provider Nurse Practitioner Family | DX: E53.8 Deficiency of other specified B group vitamins (principal) | CPT/HCPCS: 96372; J3420 ==

== ENCOUNTER 2024-03-19 11:38 | Outpatient (AMB) | payer OTHER, SELFPAY ==
--- NOTE | 2024-03-19 11:41 | A.OFFVIS_ITS ---
Vital Signs 03/19/24 11:45 Height 5 ft 1 in Weight 226 lb BMI 42.7 Intake Visit Reasons: Inj-right knee Durolane injection, last 09/14/23 Intake Note: Miriam is a 58 year old female who presents with complaints of progressively worsening right knee pain. She describes her pain as sharp in nature. Her pain has gotten worse over the last 3 months in spite of conservative treatments which have included topical creams, home physical therapy exercises, Tylenol and anti-inflammatory medicines. She has had cortisone injections in the past which gave her minimal relief. She has also had Durolane injections which gave her good relief. She wishes to hold off on total knee replacement surgery for as long as possible. Allergies amlodipine [AMLODIPINE] Allergy (Unknown, Verified 03/19/24 11:48) RASH cephalexin [From KEFLEX] Allergy (Unknown, Verified 03/19/24 11:48) RASH levofloxacin [From LEVAQUIN] Allergy (Unknown, Verified 03/19/24 11:48) RASH Medication List - Last Reconciled 03/19/24 by Kp Cannon MD acetaminophen (Tylenol Extra Strength) 1,000 mg (2 x 500 mg) PO Q6H PRN albuterol sulfate 90 mcg/actuation (Ventolin HFA) 1 inh inhalation QID PRN alirocumab (Praluent Pen) 75 mg subcut Q2W 90 days aspirin (Adult Aspirin Regimen) 81 mg PO DAILY 90 days atorvastatin 80 mg PO DAILY ngayrtduk-henijgrn-udjtryg ala 50-200-25 mg (Biktarvy) 1 tab PO DAILY 90 days cyanocobalamin (vitamin B-12) 1,000 mcg IM Q4W 3 months estradiol 0.01%(0.1mg/gram) (Estrace) use pea size amount on fingertip and apply at bedtime vaginally daily; ezetimibe 10 mg PO DAILY levothyroxine 100 mcg orally once a week; take 88mcg all other days of the week levothyroxine 88 mcg PO DAILY lorazepam 1 mg PO BEDTIME PRN metoprolol succinate ER 100 mg PO BID naproxen 500 mg PO BID nifedipine ER 30 mg PO DAILY [facility] Medical History 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 Anxiety Chronic kidney disease, stage 2 (mild) Morbid obesity Other and unspecified hyperlipidemia Essential hypertension Atherosclerotic cardiovascular disease Pituitary microadenoma Vitamin D deficiency Graves disease Post-surgical hypothyroidism Osteoarthritis GERD (gastroesophageal reflux disease) Leukopenia Cervical radiculitis Lumbar radiculopathy Pernicious anemia Obstructive sleep apnea Raynaud's phenomenon Pituitary microadenoma 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 Mother Stroke Sister Diabetes mellitus Maternal Grandmother Unknown family medical history Brother Cancer Sister No problems noted. Brother No problems noted. Daughter Healthy female Social History Housing: Apartment Alcohol intake: current Alcohol intake frequency: holidays/special occasions only Patient Tobacco Use Status: Never used Tobacco e-Cigarette/Vaping Use: Never Used Second Hand Smoke Exposure: No Current occupational status: disabled Cognitive needs: No Hearing needs: No Vision needs: No Female Reproductive History Menstrual Age of Menarche: 13 Physical Exam Vital Signs: BMI result Body Mass Index 42.7 Const Other: Well-nourished well-developed very friendly female awake alert and oriented x3 in no acute distress Extrem Other: Bilateral lower extremity examination shows good capillary refill, no skin lesions noted, normal sensation light touch Right knee examination shows a minimal effusion, palpable crepitus with range of motion, pain with range of motion, no instability Office Procedures AMB Joint Injection/Aspiration Joint Injection/Aspiration Primary Site: right knee Prep: site was prepped using aseptic technique Injected: 60 mg of (Durolane viscosupplementation) and 1% plain lidocaine Procedure: The patient tolerated the procedure well Coding 39587 - Large joint Procedure code (CPT) selection complete Results Reviewed Results Reviewed: X-rays of the patient's right knee taken previously show joint space narrowing, subchondral sclerosis, no acute bony abnormalities Assessment & Plan Assessment & Plan (1) Osteoarthritis of right knee: Code(s): M17.11 - Unilateral primary osteoarthritis, right knee Category: Medical Plan Ms. Chacon presents with right knee pain due to osteoarthritis. I had a lengthy discussion with the patient regarding the treatment options. The risks and benefits of a right Durolane viscosupplementation injection were discussed at length with the patient. The patient wished to proceed. She tolerated the injection well. She will continue with her home exercise program. She will contact me prior to her follow-up appointment in 3 months should any questions or concerns arise. Feel free to call me at any time should questions regarding her orthopedic management arise. I spent 20 minutes in reviewing the patient's records and imaging studies, seeing the patient and documenting in the medical record. Orders: Orders AMB Joint Injection/Aspiration Today M17.11 - Unilateral primary osteoarthritis, right knee Coding Level of Care Code Est Pt Level 3 (13408) Complex EM visit Add On G2211 Diagnoses Osteoarthritis of right knee M17.11 CPT Codes Coding - 82268 Large joint: 88475 - Large joint ([id number])
[2024-03-19 11:45] VITALS: BMI 42.7
== END 2024-03-19 12:04 | disposition home or self-care (01) ==
PROVIDERS: PCP Nurse Practitioner Family; Visit Provider Orthopaedic Surgery
DX: M17.11 Unilateral primary osteoarthritis, right knee (principal)
CPT/HCPCS: 20610; 99213

== ENCOUNTER → 2024-03-19 11:38 | Outpatient (BNVA) | payer OTHER, SELFPAY | PROVIDERS: PCP Nurse Practitioner Family; Visit Provider Orthopaedic Surgery | DX: M17.11 Unilateral primary osteoarthritis, right knee (principal); E55.9 Vitamin D deficiency, unspecified; Z79.899 Other long term (current) drug therapy | CPT/HCPCS: 20610; 36415; 80053; 81001; 82306; 82570; 84156; 84550; 85025; 99212; J2003; J7318 ==

== ENCOUNTER 2024-03-19 13:12 | Outpatient (REF) | payer OTHER, SELFPAY ==
[2024-03-19 13:33] LABS: MANUAL DIFF FLAG NO
[2024-03-19 14:08] LABS: Basophils Percent Auto 0.5 % (0-2); Eosinophils Percent Auto 0.8 % (0-4); Hematocrit 39.9 % (37.0-47.0); Hemoglobin 12.9 g/dl (12.0-16.0); Imm Gran Abs Auto 0.01 X10*3/uL (0.00-0.03); Imm Gran Pct Auto 0.3 % (0.0-0.4); Lymphocytes Percent Auto 52.6 % (20-40); Mean Corpuscular HGB Conc 32.3 g/dl (31.0-35.0); Mean Corpuscular Hemoglobin 27.7 pg (27.0-33.0); Mean Corpuscular Volume 85.8 fL (80.0-98.0); Mean Platelet Volume 10.6 fL (9.4-12.3); Monocytes Absolute Auto 0.3 X10*3/uL (0.1-1.2); Monocytes Percent Auto 6.7 % (2-11); Neutrophils Absolute Auto 1.5 x10*3/uL (2.0-8.3); Neutrophils Percent Auto 39.1 % (45-73); Platelet Count 246 X10*3/uL (160-400); Red Blood Count 4.65 X10*6/uL (4.20-5.50); Red Cell Distribution Width 14.1 % (11.0-16.0); White Blood Count 3.7 X10*3/uL (4.8-10.8)
[2024-03-19 14:33] LABS: Appearance Urine Cloudy; Color Urine Yellow; Glucose Urine UA Negative (Negative); Leukocyte Esterase Urine Trace (Negative); Nitrite Urine Negative (Negative); PH 5.5 (5.0-9.0); Specific Gravity - Urine 1.015 (1.005-1.025); UMIC TRIGGER UA YES; Urine Blood Small (1+) (Negative); Urine Ketones Negative (Negative); Urine Protein Negative (Neg-Trace)
[2024-03-19 14:58] LABS: Bacteria Urine 1+ (None Seen); Hyaline Casts Urine 0-2 /LPF (0-2); RBC Urine 0-2 /HPF (0-2); WBC Urine 0-5 /HPF (0-5)
[2024-03-19 15:12] LABS: Alanine Aminotransferase 27 U/L (0-31); Albumin Level 4.2 g/dL (3.5-5.0); Alkaline Phosphatase 132 U/L (39-117); Anion Gap 12 (12-20); Aspartate Amino Transferase 29 U/L (5-31); Bilirubin Total 0.5 mg/dL (0.0-1.0); Blood Urea Nitrogen 14 mg/dL (9-16); Calcium 9.5 mg/dL (8.4-10.2); Carbon Dioxide 28 mmol/L (22-29); Chloride 106 mmol/L (96-108); Estimated Glomerular Filt Rate 49; Glucose Random 93 mg/dL (60-115); Potassium 3.9 mmol/L (3.3-5.1); Sodium 142 mmol/L (135-145); Total Protein 7.6 g/dL (6.5-8.0)
[2024-03-19 15:25] LABS: Creatinine Urine 81.92 mg/dL; Protein/Creatinine Ratio, Ur 0.11 (<0.2); Total Protein Urine Random 9 mg/dL (<12)
[2024-03-19 16:07] LABS: Vitamin D 25-OH Total 29.6 ng/mL (>30)
[2024-03-19 16:28] LABS: Uric Acid 5.3 mg/dL (2.4-5.7)
== END 2024-03-19 13:13 | disposition home or self-care (01) ==
LOC: HO.LAB 13:12
PROVIDERS: PCP Nurse Practitioner Family; Visit Provider Physician Assistant
DX: Z13.89 Encounter for screening for other disorder (principal)
CPT/HCPCS: 36415; 80053; 81001; 82306; 82570; 84156; 84550; 85025

== ENCOUNTER 2024-03-21 10:47 | Outpatient (AMB) | payer OTHER, SELFPAY ==
--- NOTE | 2024-03-21 11:34 | A.OFFVIS_ITS ---
Intake Visit Reasons: 4m follow up Intake Note: Patient is Present for Telephone Follow Up Urology Med: Estradiol Antibiotic Allergy: Cephalexin, Levofloxacin Blood Thinner: Aspirin Cab Station Attendant Required: No Accompanied by: Self / Same As Patient Allergies amlodipine [AMLODIPINE] Allergy (Unknown, Verified 03/21/24 11:39) RASH cephalexin [From KEFLEX] Allergy (Unknown, Verified 03/21/24 11:39) RASH levofloxacin [From LEVAQUIN] Allergy (Unknown, Verified 03/21/24 11:39) RASH HPI Comments Details: 03/21/24--Miriam is a 58-year-old female telehealth follow-up. She is followed for recurrent UTI's, hematuria, nephrolithiasis. Also has multiple medical conditions, including HIV positive. She has bilateral renal calculi and has declined surgical management. She is complaining of flank pain. Denies gross hematuria. Will check renal ultrasound. Review of chart: 12/09/23--Patient with multiple medical conditions, HIV positive. She is followed for recurrent UTI's, hematuria, nephrolithiasis. Discussed- CTAP-10/12/23-left kidney upper pole 7 mm, mid kidney 3 mm, right kidney-3 mm calcification mid to lower, Similar findings can be seen on the 02/27/2021 CT scan. Plan will continue to monitor. 11/20/23--here for office cystoscopy. She states that she was recently treated with antibiotics for lower urinary tract symptoms of pain with urination. I reviewed CT scan imaging which showed parenchymal calcifications bilaterally no stones seen in the collecting system. Office cystoscopy no suspicious lesions mild erythematous changes consistent with cystitis. I have discussed prophylactic antibiotics Macrobid post sexual intercourse and vaginal estrogen therapy. Macrobid 100 mg post sexual activity p.r.n. Estrace vaginal cream pea-sized amount vaginally q.h.s. 11/15/23- urine cytology was sent on 07/12/2023--negative for malignant cells. Patient with multiple medical conditions, HIV positive. I have discussed reasons for blood in the urine may include but are not limited to kidney stones, cancer in the urinary tract, kidney stone disease or inflammatory conditions of the urinary tract. I have discussed workup to include cystoscopy evaluation. Will schedule urine for cytology. 09/27/23--Miriam is a 57-year-old female who presents as a new patient evaluation for microscopic hematuria. She is followed by renal for chronic kidney disease. She denies irritative voiding symptoms. She states her primary scheduled a CT scan which is pending. 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 Anxiety Chronic kidney disease, stage 2 (mild) Morbid obesity Other and unspecified hyperlipidemia Essential hypertension Atherosclerotic cardiovascular disease Pituitary microadenoma Vitamin D deficiency Graves disease Post-surgical hypothyroidism Osteoarthritis GERD (gastroesophageal reflux disease) Leukopenia Cervical radiculitis Lumbar radiculopathy Pernicious anemia Obstructive sleep apnea Raynaud's phenomenon Pituitary microadenoma 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 Mother Stroke Sister Diabetes mellitus Maternal Grandmother Unknown family medical history Brother Cancer Sister No problems noted. Brother No problems noted. Daughter Healthy female Social History Housing: Apartment Alcohol intake: current Alcohol intake frequency: holidays/special occasions only Patient Tobacco Use Status: Never used Tobacco e-Cigarette/Vaping Use: Never Used Second Hand Smoke Exposure: No Current occupational status: disabled Cognitive needs: No Hearing needs: No Vision needs: No Female Reproductive History Menstrual Age of Menarche: 13 Review of Systems Const All systems reviewed & are unremarkable except as noted in HPI and below Reports no additional complaints Eyes Reports no additional complaints ENT Reports no additional complaints Card Reports no additional complaints Resp Reports no additional complaints GI Reports no additional complaints Reports as per HPI Musc Reports no additional complaints Skin/Breast Reports system reviewed and no additional complaints, except as documented Neuro Reports no additional complaints Psych Reports no additional complaints Endo Reports no additional complaints Josh/Lymph Reports no additional complaints Aller/Immun Reports no additional complaints Telehealth Telehealth Telehealth Platform: [facility] Location of provider rendering services: practice address Location of patient: address on file Patient Identification confirmed using: Name, : Yes Telehealth method: voice only Patient verbally consented to treatment: Yes Patient verbally consented to billing insurance company: Yes Patient informed of any privacy concerns related to visit: Yes Minutes spent on Phone/Video with Pt.: 18 Assessment & Plan Assessment & Plan (1) Flank pain: Code(s): R10.9 - Unspecified abdominal pain Category: Medical (2) Bilateral kidney stones: Code(s): N20.0 - Calculus of kidney Category: Medical Plan Flank pain, b/L renal calculi. FU renal US Orders: Orders US renal BI 03/21/24 R10.9 - Unspecified abdominal pain Patient Instructions: The patient had an opportunity to ask questions regarding treatment plan. The patient expressed understanding and agreement with the above treatment plan. The patient is aware they should contact our office by phone for worsening of their current condition or the appearance of new symptoms. Compliance is encouraged with any medications and followup testing that is ordered. It is a privilege to be allowed the opportunity to participate in the urologic care of your patient. If you have any questions or concerns regarding treatment for the above conditions please do not hesitate to contact me. The office telephone contact is [phone]. This note is constructed in part using voice recognition software. While every effort has been made to ensure accuracy lead generator errors may have been included. Yours sincerely, Rah Mitchell MD Coding Level of Care Code Tele Est Pt Level 4 (83463) Diagnoses Flank pain R10.9 Bilateral kidney stones N20.0
== END 2024-03-21 12:05 | disposition home or self-care (01) ==
LOC: HO.HUSH 10:47
PROVIDERS: PCP Nurse Practitioner Family; Visit Provider Urology
DX: R10.9 Unspecified abdominal pain (principal); N20.0 Calculus of kidney
CPT/HCPCS: 99442

== ENCOUNTER 2024-04-02 10:59 | Outpatient (AMB) | payer OTHER, SELFPAY ==
--- NOTE | 2024-04-02 11:14 | AM.OFFVISNUR ---
Intake Visit Reasons: b-12 Allergies amlodipine [AMLODIPINE] Allergy (Unknown, Verified 03/21/24 11:39) RASH cephalexin [From KEFLEX] Allergy (Unknown, Verified 03/21/24 11:39) RASH levofloxacin [From LEVAQUIN] Allergy (Unknown, Verified 03/21/24 11:39) RASH Nursing Note Pt ambulate (I) gait steady to the room. Vitamin B12 injection administered to left deltoid. Pt tolerated well. Assessment & Plan Assessment & Plan Orders: Orders AMB Vitamin B12 Injection Patient Supplied Today E53.8 - Deficiency of other specified B group vitamins Medications: New cyanocobalamin (vitamin B-12) 1,000 mcg IM ONCE 1 mL 0RF E53.8 - Deficiency of other specified B group vitamins
== END 2024-04-02 11:16 | disposition home or self-care (01) ==
PROVIDERS: PCP Nurse Practitioner Family; Visit Provider Nurse Practitioner Family
DX: E53.8 Deficiency of other specified B group vitamins (principal)

== ENCOUNTER → 2024-04-02 10:59 | Outpatient (BNVA) | payer OTHER, SELFPAY | PROVIDERS: PCP Nurse Practitioner Family; Visit Provider Nurse Practitioner Family | DX: E53.8 Deficiency of other specified B group vitamins (principal) | CPT/HCPCS: 96372; J3420 ==

== ENCOUNTER 2024-04-09 07:48 | Day surgery (SDC) | payer OTHER, SELFPAY ==
--- NOTE | 2024-04-08 12:18 | P.CONAN_ITS ---
Documented by User: Regina Shields NP 04/08/24 12:21 HPI - Anesthesia Eval Consult details Narrative: 58yo F for Colonoscopy Follows [facility] [place] Cardiology for ASCD. Stable at 06/2023 office visit [facility] Active Problems Active Problems: All Active Problems Bilateral kidney stones (Acute) Flank pain (Acute) Left renal artery AV malformation (Acute) Osteoarthritis of right knee (Acute) Vitamin B12 deficiency (Acute) Recurrent UTI (Acute) Renal calcification (Acute) Cystitis (Acute) Hypokalemia (Acute) Microscopic hematuria (Acute) Osteoarthritis of right hand (Acute) Arthritis of right knee (Acute) Arthritis of left knee (Acute) Right knee pain (Acute) Left knee pain (Acute) Yeast infection involving the vagina and surrounding area (Acute) Dysuria (Acute) Rash (Acute) Elevated alkaline phosphatase level (Acute) Cervical high risk HPV (human papillomavirus) test positive (Acute) Vaginal candidiasis (Acute) Well woman exam (Acute) Acute bronchitis (Acute) Low TSH level (Acute) Bug bite (Acute) Elevated serum creatinine (Acute) Wheezing (Acute) Obstructive sleep apnea (Chronic) Anxiety (Acute) Physical exam (Acute) Postmenopausal (Acute) Murmur, cardiac (Acute) Mitral regurgitation (Acute) Dyslipidemia (Acute) Anxiety and depression (Acute) LGSIL (low grade squamous intraepithelial dysplasia) (Acute) Dysplasia of cervix, low grade (NIDHI 1) (Acute) Viral upper respiratory illness (Acute) Morbid obesity (Acute) Other and unspecified hyperlipidemia (Acute) Essential hypertension (Acute) Atherosclerotic cardiovascular disease (Acute) Pituitary microadenoma (Acute) Vitamin D deficiency (Acute) Graves disease (Acute) Post-surgical hypothyroidism (Acute) HIV (human immunodeficiency virus infection) (Acute) Past Medical History Medical History 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 Anxiety Chronic kidney disease, stage 2 (mild) Morbid obesity Other and unspecified hyperlipidemia Essential hypertension Atherosclerotic cardiovascular disease Pituitary microadenoma Vitamin D deficiency Graves disease Post-surgical hypothyroidism Osteoarthritis GERD (gastroesophageal reflux disease) Leukopenia Cervical radiculitis Lumbar radiculopathy Pernicious anemia Obstructive sleep apnea Raynaud's phenomenon Pituitary microadenoma 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 Mother Stroke Sister Diabetes mellitus Maternal Grandmother Unknown family medical history Brother Cancer Sister No problems noted. Brother No problems noted. Daughter Healthy female Family history of problems with anesthesia: No Surgical History Surgical History Hx of colonoscopy Hx of esophagogastroduodenoscopy History of temporal artery biopsy History of thyroidectomy History of tonsillectomy History of tubal ligation History of Problems with Anesthesia: No Social History Social History Housing: Apartment Are you a primary child care director to a significant other at home: No Do you presently have visiting nurse or other home services: No Alcohol intake: current Alcohol intake frequency: holidays/special occasions only Patient Tobacco Use Status: Never used Tobacco e-Cigarette/Vaping Use: Never Used Second Hand Smoke Exposure: No Current occupational status: disabled Cognitive needs: No Hearing needs: No Vision needs: No Meds Allergies Allergy/AdvReac Type Severity Reaction Status Date / Time amlodipine [AMLODIPINE] Allergy Unknown RASH Verified 04/09/24 07:53 cephalexin [From KEFLEX] Allergy Unknown RASH Verified 04/09/24 07:53 levofloxacin [From LEVAQUIN] Allergy Unknown RASH Verified 04/09/24 07:53 Home Medications ?Medication ?Instructions ?Recorded ?Confirmed ?Last Taken ?Type lorazepam 1 mg tablet 1 mg PO BEDTIME PRN Anxiety 06/18/21 04/09/24 Unknown History Exam Pertinent Lab Results Pertinent Lab Results: Laboratory Tests 03/19/24 13:33 WBC 3.7 L Hgb 12.9 Hct 39.9 Plt Count 246 Sodium 142 Potassium 3.9 Chloride 106 Carbon Dioxide 28 BUN 14 Creatinine 1.14 Narrative Narrative: EKG Test Reason : PALPITATIONS Blood Pressure : / mmHG Vent. Rate : 056 BPM Atrial Rate : 056 BPM P-R Int : 170 ms QRS Dur : 086 ms QT Int : 424 ms P-R-T Axes : 048 021 048 degrees QTc Int : 409 ms Sinus bradycardia Otherwise normal ECG When compared with ECG of 28-OCT-2018 20:16, Vent. rate has decreased BY 36 BPM Assessment and Plan Assessment Anesthesia Assessment: Chart Reviewed Final Anesthetic Review Family History of Problems with Anesthesia: No History of Problems with Anesthesia: No Documented by User: Isabella Dacosta MD 04/09/24 10:21 [facility] Active Problems Active Problems: All Active Problems Bilateral kidney stones (Acute) Flank pain (Acute) Left renal artery AV malformation (Acute) Osteoarthritis of right knee (Acute) Vitamin B12 deficiency (Acute) Recurrent UTI (Acute) Renal calcification (Acute) Cystitis (Acute) Hypokalemia (Acute) Microscopic hematuria (Acute) Osteoarthritis of right hand (Acute) Arthritis of right knee (Acute) Arthritis of left knee (Acute) Right knee pain (Acute) Left knee pain (Acute) Yeast infection involving the vagina and surrounding area (Acute) Dysuria (Acute) Rash (Acute) Elevated alkaline phosphatase level (Acute) Cervical high risk HPV (human papillomavirus) test positive (Acute) Vaginal candidiasis (Acute) Well woman exam (Acute) Acute bronchitis (Acute) Low TSH level (Acute) Bug bite (Acute) Elevated serum creatinine (Acute) Wheezing (Acute) Obstructive sleep apnea (Chronic). Not using her CPAP machine Anxiety (Acute) Physical exam (Acute) Postmenopausal (Acute) Murmur, cardiac (Acute) Mitral regurgitation (Acute) Dyslipidemia (Acute) Anxiety and depression (Acute) LGSIL (low grade squamous intraepithelial dysplasia) (Acute) Dysplasia of cervix, low grade (NIDHI 1) (Acute) Viral upper respiratory illness (Acute) Morbid obesity (Acute) BMI 41.8 Other and unspecified hyperlipidemia (Acute) Essential hypertension (Acute) Atherosclerotic cardiovascular disease (Acute) Pituitary microadenoma (Acute) Vitamin D deficiency (Acute) Graves disease (Acute) Post-surgical hypothyroidism (Acute) HIV (human immunodeficiency virus infection) (Acute) Past Medical History Medical History 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 Anxiety Chronic kidney disease, stage 2 (mild) Morbid obesity Other and unspecified hyperlipidemia Essential hypertension Atherosclerotic cardiovascular disease Pituitary microadenoma Vitamin D deficiency Graves disease Post-surgical hypothyroidism Osteoarthritis GERD (gastroesophageal reflux disease) Leukopenia Cervical radiculitis Lumbar radiculopathy Pernicious anemia Obstructive sleep apnea Raynaud's phenomenon Pituitary microadenoma 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 Mother Stroke Sister Diabetes mellitus Maternal Grandmother Unknown family medical history Brother Cancer Sister No problems noted. Brother No problems noted. Daughter Healthy female Family history of problems with anesthesia: No Surgical History Surgical History Hx of colonoscopy Hx of esophagogastroduodenoscopy History of temporal artery biopsy History of thyroidectomy History of tonsillectomy History of tubal ligation History of Problems with Anesthesia: No Social History Social History Housing: Apartment Are you a primary child care director to a significant other at home: No Do you presently have visiting nurse or other home services: No Alcohol intake: current Alcohol intake frequency: holidays/special occasions only Patient Tobacco Use Status: Never used Tobacco e-Cigarette/Vaping Use: Never Used Second Hand Smoke Exposure: No Current occupational status: disabled Cognitive needs: No Hearing needs: No Vision needs: No Meds Allergies Allergy/AdvReac Type Severity Reaction Status Date / Time amlodipine [AMLODIPINE] Allergy Unknown RASH Verified 04/09/24 07:53 cephalexin [From KEFLEX] Allergy Unknown RASH Verified 04/09/24 07:53 levofloxacin [From LEVAQUIN] Allergy Unknown RASH Verified 04/09/24 07:53 Home Medications ?Medication ?Instructions ?Recorded ?Confirmed ?Last Taken ?Type lorazepam 1 mg tablet 1 mg PO BEDTIME PRN Anxiety 06/18/21 04/09/24 Unknown History Exam Height,Weight and Vital Signs: Height 5 ft 1 in Weight 100.244 kg Vital Signs Temp Pulse Resp BP Pulse Ox O2 Del Method 98.2 F 86 18 138/87 100 Room Air 04/09/24 08:28 04/09/24 08:28 04/09/24 08:28 04/09/24 08:28 04/09/24 08:28 04/09/24 08:28 Airway Mallampati Class: II (Small mouth) TM Dist: >3cm Neck ROM: Full Loose/Missing/Broken Teeth: No Heart: RRR + murmur Lungs: CTAB Assessment and Plan Assessment Anesthesia Assessment: Anesthesia Plan Discussed and Chart Reviewed Final Anesthetic Review Family History of Problems with Anesthesia: No History of Problems with Anesthesia: No NPO: Yes ASA Class: III Final Preanesthetic Review: No Changes in Pt Med Stat, Meds/Allgs Chart Reviewed, Consent Obtained/Reviewed and Anes Risks/Benef Reviewed Patient Risk: Intermediate Procedure Risk: Low Assessment/Block/Sedation in SS: Assess/Block/Sedation-SS Anesthetic Plan Anesthetic Plan: TIVA Disposition: Standard PACU
[2024-04-09 08:02] VITALS: BMI 41.8
[2024-04-09] MEDS: Lactated Ringers 1,000 ML 100 ML IVCONT (08:17)
[2024-04-09 08:28] VITALS: BP 138/87; PULSE 86; RESP 18; TEMP 36.8; O2SAT 100
--- NOTE | 2024-04-09 09:34 | P.HPSUR_ITS ---
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 Anxiety Chronic kidney disease, stage 2 (mild) Morbid obesity Other and unspecified hyperlipidemia Essential hypertension Atherosclerotic cardiovascular disease Pituitary microadenoma Vitamin D) History of Previous Operations: Relevant previous surgery/procedure and date(s) ( Hx of colonoscopy Hx of esophagogastroduodenoscopy History of temporal artery biopsy History of thyroidectomy History of tonsillectomy History of tubal ligation) Allergies: Allergies Allergy/AdvReac Type Severity Reaction Status Date / Time amlodipine [AMLODIPINE] Allergy Unknown RASH Verified 04/09/24 07:53 cephalexin [From KEFLEX] Allergy Unknown RASH Verified 04/09/24 07:53 levofloxacin [From LEVAQUIN] Allergy Unknown RASH Verified 04/09/24 07:53 Review of Systems Sugical H&P ROS: Negative: Constitution, Cardiovascular, Respiratory, Neurological, Psychiatric, Hem-Onc, Allergic/Immunologic, Gastrointestinal, Genitourinary, Musculoskeletal, Integumentary, Endocrine and Eyes/Ears/Nose/Throat Exam Surgical H&P Exam: Normal: HEENT, Normal: Heart, Normal: Lungs, Normal: Extremities, Normal: Abdomen, Normal: Skin and Normal: Neurological Plan Diagnosis/Plan: Unchanged I have reviewed the history and physical and performed a pertinent physical examination on my patient. No changes have occurred unless specified. Time Spent With Patient Time: Total time managing care of this patient today ____ minutes.
--- NOTE | 2024-04-09 10:13 | HO.OPN-COLON ---
Colonoscopy Operative Note Operative Note Date of Service: 04/09/24 Narrative: Operative Information Procedure Description: Colonoscopy Indication: screening Anesthesia: MAC COLONOSCOPY Instrument: Olympus variable stiffness pediatric scope 190L Colonoscopy Monitoring: Vital signs and clinical assessment, continuous EKG monitoring, Pulse oximetry, Carbon Dioxide monitoring and blood pressure monitoring were done throughout the procedure. Colon withdrawal time was 11 minutes. Procedure: The patient was placed in the left lateral decubitis position and pre-procedure medications were administered. After a digital rectal examination of the ano-rectum, the video colonoscope was inserted into the rectum and advanced through the colon to the cecum/TI. The colonoscope was slowly withdrawn in a retrograde panoramic fashion and the colon mucosa was carefully examined including a retroflexed view of the rectum. Findings and interventions are described below. Procedure Difficulty: moderate Findings: Terminal Ileum-normal, bx taken Cecum: granular, lumpy mucosa with one micro abscess noted, biopsies taken right sided retroflexion- moderate diverticulosis Ascending Colon: moderate diverticulosis Transverse Colon - moderate diverticulosis Descending Colon: moderate diverticulosis Sigmoid Colon: moderate diverticulosis Rectum: Retroflexion with small internal hemorrhoids seen, grade I Anorectum - normal Intervention: cold forceps biopsy Colon preparation: Franklin Bowel Preparation Scale Right colon; 2 Transverse colon: 2 Left colon; 2 (0 = Unprepared colon segment with mucosa not seen due to solid stool that cannot be cleared. 1 = Portion of mucosa of the colon segment seen, but other areas of the colon segment not well seen due to staining, residual stool and/or opaque liquid. 2 = Minor amount of residual staining, small fragments of stool and/or opaque liquid, but mucosa of colon segment seen well. 3 = Entire mucosa of colon segment seen well with no residual staining, small fragments of stool or opaque liquid) Impression and Post Procedure Diagnosis: diverticulosis non specific colopathy internal hemorrhoids Plan: High fiber diet leaflet Avoid straining at stool, epsom salts and sitz bath, anusol supps or cream Repeat Colonoscopy in 10 years or earlier if clinically indicated Above findings were reviewed with the patient and relevant handouts were provided if indicated.
[2024-04-09 10:20] VITALS: BP 100/71; PULSE 95; RESP 20; TEMP 36.2; O2SAT 99
[2024-04-09 10:35] VITALS: BP 137/93; PULSE 87; RESP 18; TEMP 36.2; O2SAT 100
== END 2024-04-09 11:02 | disposition home or self-care (01) ==
PROVIDERS: PCP Nurse Practitioner Family; Visit Provider Internal Medicine Gastroenterology
PROC: 0DJD8ZZ Inspection of Lower Intestinal Tract, Via Natural or Artificial Opening Endoscopic (ICD-10-PCS; CPT 45378; principal; 2024-04-09 09:40)
DX: Z12.11 Encounter for screening for malignant neoplasm of colon (principal); K57.30 Diverticulosis of large intestine without perforation or abscess without bleeding; K64.0 First degree hemorrhoids; B20 Human immunodeficiency virus [HIV] disease; I12.9 Hypertensive chronic kidney disease with stage 1 through stage 4 chronic kidney disease, or unspecified chronic kidney disease; N18.31 Chronic kidney disease, stage 3a; E78.5 Hyperlipidemia, unspecified; E55.9 Vitamin D deficiency, unspecified; G47.33 Obstructive sleep apnea (adult) (pediatric); Z99.89 Dependence on other enabling machines and devices; Z79.82 Long term (current) use of aspirin; Z79.02 Long term (current) use of antithrombotics/antiplatelets; Z79.899 Other long term (current) drug therapy
CPT/HCPCS: 45380; 88305; J2003; J2704

== ENCOUNTER → 2024-04-09 07:48 | Outpatient (BNV) | payer OTHER, SELFPAY | PROVIDERS: PCP Nurse Practitioner Family; Visit Provider Internal Medicine Gastroenterology | DX: Z12.11 Encounter for screening for malignant neoplasm of colon (principal); K57.90 Diverticulosis of intestine, part unspecified, without perforation or abscess without bleeding; K64.0 First degree hemorrhoids | CPT/HCPCS: 45380 ==

== ENCOUNTER 2024-04-29 10:00 | Outpatient (REF) | payer OTHER, SELFPAY ==
--- NOTE | ~2024-04-29 | US_ITS ---
EXAMINATION: US RETROPERITONEAL LIMITED (RENAL ONLY) CLINICAL INFORMATION: Flank pain. COMPARISON: CT urogram 10/12/2023. Ultrasound abdomen Limited 09/01/2022. TECHNIQUE: Real-time imaging of the kidneys. FINDINGS: RIGHT KIDNEY: 10.0 x 4.1 x 4.2 cm (SAG x AP x TRV). It is normal in size and contour. There are echogenic renal pyramids present. Renal cortical thickness is normal. No calculi or focal parenchymal lesions. No hydronephrosis. There is an extrarenal pelvis present, which was present on the prior CT. LEFT KIDNEY: 9.6 x 4.7 x 5.2 cm (SAG x AP x TRV). It is normal in size and contour. There are echogenic renal pyramids present. Renal cortical thickness is normal. No calculi or focal parenchymal lesions. No hydronephrosis. US/US renal BI IMPRESSION: 1. No hydronephrosis, mass, or definitive calculi. 2. Echogenic renal pyramids, findings suggesting renal medullary nephrocalcinosis. Differential diagnosis includes medullary sponge kidney, RTA type I, hypercalcemia, among other rare entities. Electronically signed by: Celio Maher MD 04/29/2024 11:08 AM [facility]
== END 2024-04-29 10:01 | disposition home or self-care (01) ==
LOC: HO.US 10:00
PROVIDERS: PCP Nurse Practitioner Family; Visit Provider Urology
DX: R10.9 Unspecified abdominal pain (principal); E53.8 Deficiency of other specified B group vitamins
CPT/HCPCS: 76775; 96372; J3420

== ENCOUNTER → 2024-04-29 10:03 | Outpatient (BNV) | payer OTHER, SELFPAY | PROVIDERS: PCP Nurse Practitioner Family; Visit Provider Radiology Diagnostic Radiology | DX: R10.9 Unspecified abdominal pain (principal) | CPT/HCPCS: 76775 ==

== ENCOUNTER 2024-04-29 11:19 | Outpatient (AMB) | payer OTHER, SELFPAY ==
--- NOTE | 2024-04-29 11:33 | AM.OFFVISNUR ---
Intake Visit Reasons: B-12 4 weeks f/up Intake Note: Pt arrived for monthly B-12 injection. She will have repeat labs drawn in 3 weeks. Allergies amlodipine [AMLODIPINE] Allergy (Unknown, Verified 04/09/24 07:53) RASH cephalexin [From KEFLEX] Allergy (Unknown, Verified 04/09/24 07:53) RASH levofloxacin [From LEVAQUIN] Allergy (Unknown, Verified 04/09/24 07:53) RASH Office Meds cyanocobalamin (vitamin B-12) 1,000 mcg/mL injection solution Performing Provider: LOPEZ Hale Performing Location: [facility] Administered by: Nancy Vgoel RN on 04/29/24 11:34 Dose Route Admin Location Dispensed Lot Number Expiration Date [facility] [employer] 1,000 mcg IM right deltoid 1 mL [id number] 10/15/25 22605-814-07 [employer]WSTER Comments: Pt supplied Assessment & Plan Assessment & Plan Orders: Orders AMB Vitamin B12 Injection Patient Supplied Today E53.8 - Deficiency of other specified B group vitamins Medications: New cyanocobalamin (vitamin B-12) 1,000 mcg IM ONCE 1 mL 0RF E53.8 - Deficiency of other specified B group vitamins
== END 2024-04-29 11:29 | disposition home or self-care (01) ==
PROVIDERS: PCP Nurse Practitioner Family; Visit Provider Nurse Practitioner Family
DX: E53.8 Deficiency of other specified B group vitamins (principal)

== ENCOUNTER 2024-05-15 09:56 | Outpatient (REF) | payer OTHER, SELFPAY ==
--- OUTSIDE RECORDS SUMMARY | 2024-05-15 14:20 | XMS_ITS | Encounter Summary ---
Author Organization [facility] Address [address] [place] [address] Phone Care Team Providers Care Data Center Technician Name Role Phone Kenroy Freeman NIRALI Primary Care Provider [phone] Encounter Details Date Type Department Care Team (Late st Contact Info) Description 08/18/2021 Documentation Only [facility] [address] [place] [address] Jose Martin Mccall MD [address] [place] [address] Social History Tobacco Use Types Packs/Day Years Used Date Smoking Tobacco: Never Alcohol Use Standard Drinks/Week Comments Yes 0 (1 standard drink = 0.6 oz pure alcohol) Alcoholic Drinks/day: Occasional social drink Comments Unknown Sex and Gender Information Value Date Recorded Sex Assigned at Not on file Legal Sex Female 4:34 PM EST Gender Identity Not on file Sexual Orientation Not on file documented as of this encounter Plan of Treatment Upcoming Encounters Date Type Department Care Team (Late st Contact Info) Description 10/02/2024 10:15 AM EDT Office Visit [facility] [address] [place] [address] Reginaldo Eagle MD [address] [place] [address] documented as of this encounter Visit Diagnoses Not on filedocumented in this encounter Care Teams Data Center Technician Relationship Specialty Start Date End Date Kenroy Freeman NP [facility] [place] [address] PCP - General Nurse Practitioner 11/15/19 documented as of this encounter
--- OUTSIDE RECORDS SUMMARY | 2024-05-15 14:20 | XMS_ITS | Encounter Summary ---
Author Organization [facility] Address [address] [place] [address] Phone Care Team Providers Care Night Baker Name Role Phone Kenroy Freeman NIRALI Primary Care Provider [phone] Encounter Details Date Type Department Care Team (Late st Contact Info) Description 06/01/2023 Documentation Only [facility] [address] [place] [address] Deya Chowdhury [address] [place] [address] Social History Tobacco Use Types Packs/Day Years [...] Visit [facility] [address] [place] [address] Reginaldo Eagle MD [address] [place] [address] [place] [address] documented as of this encounter Visit Diagnoses Not on filedocumented in this encounter Care Teams Night Baker Relationship Specialty Start Date End Date Kenroy Freeman NP [facility] [place] [address] PCP - General Nurse Practitioner 11/15/19 documented as of this encounter
--- OUTSIDE RECORDS SUMMARY | 2024-05-15 14:20 | XMS_ITS | Clinical Summary ---
Author Organization [facility] [employer] [facility] it Address [address] [place] [address] Care Team Providers Care Ski Edge Painter Name Role Phone Unavailable Primary Care Provider Unavailabl e Social History Tobacco Use Types Packs/Day Years Used Date Smoking Tobacco: Never Assessed Sex and Gender Information Value Date Recorded Sex Assigned at Not on file Gender Identity Not on file Sexual Orientation Not on file Plan of Treatment Health Maintenance Due Date Last Done Comments Breast Cancer Screening 1965 DTaP,Tdap,and Td Vaccines (1 - Tdap) 1984 Hepatitis B Vaccines (1 of 3 - 19+ 3-dose series) 1984 Cervical Cancer Screening: P ap Smear 1986 Zoster Vaccines (1 of 2) 11/12/2015 COVID-19 Vaccine ( - 2023-2 5 season) 2023 Influenza Vaccine (#1) 2023 HIB Vaccines Aged Out No longer eligi ble based on patient's age to complete this topic HPV Vaccines Aged Out No longer eligi ble based on patient's age to complete this topic Hepatitis A Vaccines Aged Out No long er eligible based on patient's age to complete this topic IPV Vaccines Aged Out No longer eligi ble based on patient's age to complete this topic MMR Vaccines Aged Out No longer eligi ble based on patient's age to complete this topic Meningococcal ACWY Vaccine Aged Out N o longer eligible based on patient's age to complete this topic Pneumococcal Vaccine: Pediat rics (0 to 5 Years) and At-Risk Patients (6 to 64 Years) Aged Out No longer eligible b ased on patient's age to complete this topic RSV Immunization Patients Un avni 20 months Aged Out No longer eligible b ased on patient's age to complete this topic Varicella Vaccines Aged Out No longer eligible based on patient's age to complete this topic
--- OUTSIDE RECORDS SUMMARY | 2024-05-15 14:20 | XMS_ITS | Clinical Summary ---
Author Organization [facility], Address [address] [place] [address] [place] [address] Phone Care Team Providers Care Car Washer Name Role Phone Kenroy Freeman NP Primary Care Provider [phone] Allergies Active Allergy Reactions Criticality Noted Date Comments Amlodipine Rash Low 09/24/2018 Cephalexin Rash Low 09/24/2018 Levofloxacin Rash Low 09/24/2018 Medications aspirin (ASPIRIN LOW DOSE) 81 MG EC tablet Take 1 tablet by mouth 1 (one) time each day Active atorvastatin (LIPITOR) 80 MG tablet Take 1 tablet by mouth 1 (one) time each day Active BIKTARVY 50-200-25 MG tablet TK 1 T PO QD 9 Active cyanocobalamin (VITAMIN B-12) 1000 MCG/ML injection INJECT 1ML ONCE A MONTH 9 Active metoprolol succinate XL (TOPROL-XL) 100 MG 24 hr tablet Take 100 mg by mouth 1 (one) time each day 9 Active NIFEdipine XL (PROCARDIA XL) 30 MG 24 hr tablet Take 30 mg by mouth 1 (one) time each day 9 Active levothyroxine sodium (TIROSINT) 112 MCG capsule Take 112 mcg by mouth 1 (one) time each day Active PARoxetine (PAXIL) 40 MG tablet Take 40 mg by mouth every night Active PARoxetine (PAXIL) 10 MG tablet Take 10 mg by mouth every night Active spironolactone (ALDACTONE) 50 MG tablet Take 50 mg by mouth 2 (two) times a day Active ezetimibe (ZETIA) 10 MG tablet Take 10 mg by mouth 1 (one) time each day 2 Active levothyroxine (SYNTHROID, LEVOTHROID) 100 MCG tablet Take 100 mcg by mouth 1 (one) time each day 2 Active NIFEdipine CC (ADALAT CC) 30 MG 24 hr tablet Take 30 mg by mouth 1 (one) time each day 2 Active sulfamethoxazo le-trimethopri m 800-160 MG per tablet TAKE 1 TABLET BY MOUTH TWICE DAILY FOR 3 DAYS 2 Active Praluent 75 MG/ML solution auto-injector 75 MG SUBCUTANEOUSLY EVERY 2 WEEKS FOR 90 DAYS 3 Active Cholecalcifero l 50 MCG (1999) capsule Take 1 capsule by mouth 1 (one) time each day 90 capsule 3 4 025 Active Active Problems Problem Noted Date Diagnosed Date Stage 3b chronic kidney disease 08/15/2022 Hematuria 08/15/2022 Recurrent and persistent hem aturia with minimal change lesion 09/06/2021 Stage 3a chronic kidney disease 05/17/2021 Essential hypertension 11/27/2020 Hypertensive heart disease without congestive he art failure 04/22/2019 Proteinuria 04/22/2019 Resolved Problems Problem Noted Date Diagnosed Date Resolved Date Obesity associated disorder 06/01/2020 11/27/2020 Chronic kidney disease stage 2 04/22/2019 09/06/2021 Disorder of thyroid gland 04/22/2019 Hyperlipidemia 04/22/2019 11/27/2020 Membranous glomerulonephritis 04/22/2019 11/27/2020 Sleep apnea 04/22/2019 11/27/2020 Vitamin D deficiency 04/22/2019 021 Encounters Date Type Department Care Team Description 03/20/2024 3:45 PM EST Office Visit [facility] [place], [address] [place] [address] Tonya Wilson PA Stage 3b chronic kidney disease (HCC) (Primary Dx); Essential hypertension; Hematuria, not otherwise specified 03/20/2024 Documentation Only [facility] [place], [address] [place] [address] Reanna Goyal from Last 3 Months Immunizations Name Administration Dates Next Due H1N1 Inj 02/25/2016 Influenza, MDCK, Quadrivalent, with preservative 01/31/2018 Family History Medical History Relation Comments Heart disease Father OR Stroke Father Hypertension Mother Cancer Sibling 1 brother prostate he is Diabetes Sibling 1 Heart disease Sibling 1 eldest brother & 2 brothers who passed from heart conditions, Stroke Sibling 1 Diabetes Sibling 2 brother and sist er Hypertension Sibling 3 brothers and sis ters Heart disease Sibling 4 eldest brother-- and 2 brothers who passed from heart complications Cancer Sibling 5 brother had pros dennis cancer he is deceaesd Stroke Sibling 6 brothers who pas sed away had a stroke Relation Status Comments Father Mother Alive Sibling 1 Sibling 2 Sibling 3 Sibling 4 Sibling 5 Sibling 6 Social History Tobacco Use Types Packs/Day Years Used Date Smoking Tobacco: Never Tobacco Cessation:Counseling Given: Not Answered Alcohol Use Standard Drinks/Week Comments Yes 0 (1 standard drink = 0.6 oz pure alcohol) Alcoholic Drinks/day: Occasional social drink Comments Unknown Sex and Gender Information Value Date Recorded Sex Assigned at Not on file Legal Sex Female 4:34 PM EST Gender Identity Not on file Sexual Orientation Not on file Last Filed Vital Signs Vital Sign Reading Time Taken Comments Blood Pressure 120/74 03/20/2024 3:54 PM EST Pulse 68 05/20/2019 4:02 PM EST Temperature - - Respiratory Rate 16 05/20/2019 4:02 PM EST Oxygen Saturation - - Inhaled Oxygen Concentration - - Weight 103 kg (226 lb) 03/20/2024 3:54 PM EST Height 165.1 cm (5' 5 ) 03/20/2024 3:54 PM EST Body Mass Index 37.61 03/20/2024 3:54 PM EST Plan of Treatment Upcoming Encounters Date Type Department Care Team (Late st Contact Info) Description 10/02/2024 10:15 AM EDT Office Visit [facility] [place], [address] [place] [address] Reginaldo Eagle MD [address] [place] [address] Health Maintenance Due Date Last Done Comments Breast Cancer Screening 1965 Hepatitis B Vaccine (1 of 3 - 19+ 3-dose series) 11/11 Colorectal Cancer Screening: Annual FOBT 2014 Colorectal Cancer Screening: Colonoscopy 2014 Colorectal Cancer Screening: Sigmoidoscopy 2014 Pneumococcal Vaccine: Pediat rics (0 to 5 Years) and At-Risk Patients (6 to 64 Years) (2 of 2 - PCV) 03/10/2016 03/10/2015 Influenza Vaccine (#1) 2023 01/31/[address] [place] [id number] [facility] CARE DUAL SNP ([id number]) [place] [phone] [place] [phone] [address] [place] [phone] Care Teams Car Washer Relationship Specialty Start Date End Date Kenroy Freeman NP [address] [place] [address] PCP - General Nurse Practitioner 11/15/19
--- OUTSIDE RECORDS SUMMARY | 2024-05-15 14:20 | XMS_ITS | Encounter Summary ---
Author Organization [facility] Address [address] [place] [address] Phone Care Team Providers Care Learning Coordinator Name Role Phone Kenroy Freeman NIRLAI Primary Care Provider [phone] Encounter Details Date Type Department Care Team (Late st Contact Info) Description 08/18/2021 Documentation Only [facility] [address] [address] Jose Martin Mccall MD [address] [place] [address] Social History Tobacco Use Types [...] Visit [facility] [address] [place] [address] Reginaldo Eagle MD [address] [place] [address] documented as of this encounter Visit Diagnoses Not on filedocumented in this encounter Care Teams Learning Coordinator Relationship Specialty Start Date End Date Kenroy Freeman NP [place] [address] PCP - General Nurse Practitioner 11/15/19 documented as of this encounter
--- OUTSIDE RECORDS SUMMARY | 2024-05-15 14:20 | XMS_ITS | Encounter Summary ---
Author Organization [facility] Address [address] [place] [address] Phone Care Team Providers Care Clerical Investigator Name Role Phone Kenroy Freeman NIRALI Primary Care Provider [phone] Encounter Details Date Type Department Care Team (Late st Contact Info) Description 03/20/2024 Documentation Only [facility] [address] [place] [address] Reanna Goyal [address] [place] [address] Social History Tobacco Use Types [...] Visit [facility] [address] [place] [address] Reginaldo Eagle MD [address] [place] [address] documented as of this encounter Visit Diagnoses Not on filedocumented in this encounter Care Teams Clerical Investigator Relationship Specialty Start Date End Date Kenroy Freeman NP [facility] [place] [address] PCP - General Nurse Practitioner 11/15/19 documented as of this encounter
--- OUTSIDE RECORDS SUMMARY | 2024-05-15 14:20 | XMS_ITS | Encounter Summary ---
Author Organization [facility] Address [address] [place] [address] Phone Care Team Providers Care Automation Operator Name Role Phone Kenroy Freeman NIRALI Primary Care Provider [phone] Encounter Details Date Type Department Care Team (Late st Contact Info) Description 09/19/2022 Documentation Only [facility] [address] [place] [address] Tonya Wilson PA [address] [address] Social History Tobacco Use Types Packs/Day Years [...] Visit [facility] [address] [place] [address] Reginaldo Eagle MD [address] [place] [address] documented as of this encounter Visit Diagnoses Not on filedocumented in this encounter Care Teams Automation Operator Relationship Specialty Start Date End Date Kenroy Freeman NP [facility] [place] [address] PCP - General Nurse Practitioner 11/15/19 documented as of this encounter
--- OUTSIDE RECORDS SUMMARY | 2024-05-15 14:20 | XMS_ITS | Encounter Summary ---
Author Organization [facility] Address [address] [place] [address] Phone Care Team Providers Care Mortgage Protection Specialist Name Role Phone Kenroy Freeman NIRALI Primary Care Provider [phone] Encounter Details Date Type Department Care Team (Late st Contact Info) Description 08/08/2022 Documentation Only [facility] [address] [place] [place] [address] Tonya Wilson PA [address] [place] [address] Social History Tobacco Use Types [...] Visit [facility] [address] [place] [address] Reginaldo Eagle MD [address] [place] [address] documented as of this encounter Visit Diagnoses Not on filedocumented in this encounter Care Teams Mortgage Protection Specialist Relationship Specialty Start Date End Date Kenroy Freeman NP [facility] [place] [address] PCP - General Nurse Practitioner 11/15/19 documented as of this encounter
--- OUTSIDE RECORDS SUMMARY | 2024-05-15 14:20 | XMS_ITS | Encounter Summary ---
Author Organization [facility] Address [address] [place] [address] Phone Care Team Providers Care Human Resources Operations Coordinator Name Role Phone Kenroy Freeman NIRALI Primary Care Provider [phone] Encounter Details Date Type Department Care Team (Late st Contact Info) Description 09/27/2021 Documentation Only [facility] [address] [place] [address] Jose Martin Mccall MD [address] [place] [address] Social History Tobacco Use Types [...] Visit [facility] [address] [place] [address] Reginaldo Eagle MD [address] [place] [address] documented as of this encounter Visit Diagnoses Not on filedocumented in this encounter Care Teams Human Resources Operations Coordinator Relationship Specialty Start Date End Date Kenroy Freeman NP [facility] [address] PCP - General Nurse Practitioner 11/15/19 documented as of this encounter
--- OUTSIDE RECORDS SUMMARY | 2024-05-15 14:20 | XMS_ITS | Encounter Summary ---
Author Organization [facility] Address [address] [place] [address] Phone Care Team Providers Care Architectural Manager Name Role Phone Kenroy Freeman NP Primary Care Provider [phone] Encounter Details Date Type Department Care Team (Late st Contact Info) Description 03/01/2021 Documentation Only [facility] [address] [place] [id number] Falguni Whitney PA Social History Tobacco Use Types Packs/Day Years [...] Visit [facility] [address] [place] [phone] Reginaldo Eagle MD [address] [place] [address] [place] [place] [phone] documented as of this encounter Visit Diagnoses Not on filedocumented in this encounter Care Teams Architectural Manager Relationship Specialty Start Date End Date Kenroy Freeman NP [address] [place] [address] PCP - General Nurse Practitioner 11/15/19 documented as of this encounter
--- OUTSIDE RECORDS SUMMARY | 2024-05-15 14:20 | XMS_ITS | Encounter Summary ---
Author Organization [facility] Address [address] [place] [address] Phone Care Team Providers Care Financial Controller Name Role Phone Kenroy Freeman NIRALI Primary Care Provider Encounter Details Date Type Department Care Team (Late st Contact Info) Description 05/13/2021 Documentation Only [facility] [address] [place] [address] Jose Martin Mccall MD [address] [place] [address] Social History Tobacco Use Types [...] Visit [facility] [address] [place] [address] Reginaldo Eagle MD [address] [place] [address] documented as of this encounter Visit Diagnoses Not on filedocumented in this encounter Care Teams Financial Controller Relationship Specialty Start Date End Date Kenroy Freeman NP [facility] [place] [address] PCP - General Nurse Practitioner 11/15/19 documented as of this encounter
--- OUTSIDE RECORDS SUMMARY | 2024-05-15 14:20 | XMS_ITS | Encounter Summary ---
Author Organization [facility] Address [address] [place] [address] Phone Care Team Providers Care Riverboat Captain Name Role Phone Kenroy Freeman NIRALI Primary Care Provider [phone] Encounter Details Date Type Department Care Team (Late st Contact Info) Description 10/13/2021 Documentation Only [facility] [address] [place] [address] Jose Martin Mccall MD [address] [place] [address] Social History Tobacco Use Types [...] Visit [facility] [address] [place] [address] Reginaldo Eagle MD [address] [place] [address] documented as of this encounter Visit Diagnoses Not on filedocumented in this encounter Care Teams Riverboat Captain Relationship Specialty Start Date End Date Kenroy Freeman NP [place] [place] [address] PCP - General Nurse Practitioner 11/15/19 documented as of this encounter
--- OUTSIDE RECORDS SUMMARY | 2024-05-15 14:20 | XMS_ITS | Encounter Summary ---
Author Organization [facility] Address [address] [place] [address] Phone Care Team Providers Care Jackscrew Worker Name Role Phone Kenroy Freeman NIRALI Primary Care Provider [phone] Encounter Details Date Type Department Care Team (Late st Contact Info) Description 06/02/2023 Documentation Only [facility] [address] [place] [address] Reanna Goyal [address] [place] [address] Social History Tobacco Use Types [...] Visit [facility] [address] [place] [address] Reginaldo Eagle MD [address] [place] [address] documented as of this encounter Visit Diagnoses Not on filedocumented in this encounter Care Teams Jackscrew Worker Relationship Specialty Start Date End Date Kenroy Freeman NP [facility] [place] [address] PCP - General Nurse Practitioner 11/15/19 documented as of this encounter
--- OUTSIDE RECORDS SUMMARY | 2024-05-15 14:20 | XMS_ITS | Encounter Summary ---
Author Organization [facility] Address [address] [place] [address] Phone Care Team Providers Care Splicing Supervisor Name Role Phone Kenroy Freeman NIRALI Primary Care Provider [phone] Encounter Details Date Type Department Care Team (Late st Contact Info) Description 08/18/2022 Documentation Only [facility] [address] [place] [address] [place], [place] [address] [place] [address] Social History Tobacco Use Types [...] Visit [facility] [address] [place] [address] Reginaldo Eagle MD [address] [place] [address] documented as of this encounter Visit Diagnoses Not on filedocumented in this encounter Care Teams Splicing Supervisor Relationship Specialty Start Date End Date Kenroy Freeman NP [facility] [place] [address] PCP - General Nurse Practitioner 11/15/19 documented as of this encounter
[2024-05-24 15:02] LABS: HPV Genotype 16 Negative (Negative); HPV Genotype 18 Negative (Negative); HPV High Risk Positive (Negative)
== END 2024-05-15 09:57 | disposition home or self-care (01) ==
LOC: HO.LNP 09:56
PROVIDERS: PCP Nurse Practitioner Family; Visit Provider Obstetrics & Gynecology
DX: Z01.419 Encounter for gynecological examination (general) (routine) without abnormal findings (principal)
CPT/HCPCS: 87626; 88175; 99396; 99459

== ENCOUNTER 2024-05-16 12:53 | Outpatient (AMB) | payer OTHER, SELFPAY ==
--- NOTE | 2024-05-16 13:03 | MHC.OFFVIS ---
Intake Visit Reasons: 6-8 week follow up/ US Intake Note: Patient is Present for Follow Up Ultrasound Urology Medication: Estradiol (Patient does not use as much) Antibiotic Allergies: Cephalexin, Levofloxacin Blood Thinners: Aspirin Brake Drum Lathe Operator Required: No Allergies amlodipine [AMLODIPINE] Allergy (Unknown, Verified 05/15/24 10:01) RASH cephalexin [From KEFLEX] Allergy (Unknown, Verified 05/15/24 10:01) RASH levofloxacin [From LEVAQUIN] Allergy (Unknown, Verified 05/15/24 10:01) RASH HPI Comments Details: 05/16/2024--Miriam is here for follow-up post renal ultrasound she was complaining of flank pain and has history of kidney stones. Workup in the past for microscopic hematuria. Multiple medical conditions, HIV positive. 04/29/24- no renal calculi noted no hydronephrosis. Renal US-04/29/24--No hydronephrosis, mass, or definitive calculi. Echogenic renal pyramids, findings suggesting renal medullary nephrocalcinosis. Urinalysis-no signs of infection leukocytes negative, blood 2+. 03/21/24--Miriam is a 58-year-old female telehealth follow-up. She is followed for recurrent UTI's, hematuria, nephrolithiasis. Also has multiple medical conditions, including HIV positive. She has bilateral renal calculi and has declined surgical management. She is complaining of flank pain. Denies gross hematuria. Will check renal ultrasound. 12/09/23--Patient with multiple medical conditions, HIV positive. She is followed for recurrent UTI's, hematuria, nephrolithiasis. Discussed- CTAP-10/12/23-left kidney upper pole 7 mm, mid kidney 3 mm, right kidney-3 mm calcification mid to lower, Similar findings can be seen on the 02/27/2021 CT scan. Plan will continue to monitor. 11/20/23--here for office cystoscopy. She states that she was recently treated with antibiotics for lower urinary tract symptoms of pain with urination. I reviewed CT scan imaging which showed parenchymal calcifications bilaterally no stones seen in the collecting system. Office cystoscopy no suspicious lesions mild erythematous changes consistent with cystitis. I have discussed prophylactic antibiotics Macrobid post sexual intercourse and vaginal estrogen therapy. Macrobid 100 mg post sexual activity p.r.n. Estrace vaginal cream pea-sized amount vaginally q.h.s. 11/15/23- urine cytology was sent on 07/12/2023--negative for malignant cells. Patient with multiple medical conditions, HIV positive. I have discussed reasons for blood in the urine may include but are not limited to kidney stones, cancer in the urinary tract, kidney stone disease or inflammatory conditions of the urinary tract. I have discussed workup to include cystoscopy evaluation. Will schedule urine for cytology. 09/27/23--Miriam is a 57-year-old female who presents as a new patient evaluation for microscopic hematuria. She is followed by renal for chronic kidney disease. She denies irritative voiding symptoms. She states her primary scheduled a CT scan which is pending. 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 Mother Stroke Sister Diabetes mellitus Maternal Grandmother Unknown family medical history Brother Cancer Sister No problems noted. Brother No problems noted. Daughter Healthy female Social History Housing: Apartment Are you a primary care tech to a significant other at home: No Do you presently have visiting nurse or other home services: No Alcohol intake: current Alcohol intake frequency: holidays/special occasions only Patient Tobacco Use Status: Never used Tobacco e-Cigarette/Vaping Use: Never Used Second Hand Smoke Exposure: No Current occupational status: disabled Cognitive needs: No Hearing needs: No Vision needs: No Female Reproductive History Menstrual Age of Menarche: 13 Review of Systems Const All systems reviewed & are unremarkable except as noted in HPI and below Reports no additional complaints Eyes Reports no additional complaints ENT Reports no additional complaints Card Reports no additional complaints Resp Reports no additional complaints GI Reports no additional complaints Reports as per HPI Musc Reports no additional complaints Skin/Breast Reports system reviewed and no additional complaints, except as documented Neuro Reports no additional complaints Psych Reports no additional complaints Endo Reports no additional complaints Josh/Lymph Reports no additional complaints Aller/Immun Reports no additional complaints Results AMB Urinalysis, Automated UA Leukoctes 0 Gina/uL Last Edit by Falguni Downing [facility] on 05/16/24 13:20 UA Nitrite Negative Last Edit by Falguni Downing [facility] on 05/16/24 13:20 UA Urobilinogen 0.2 mg/dL Last Edit by Falguni Downing [facility] on 05/16/24 13:20 UA Protein 15 mg/dL Last Edit by Falguni Downing [facility] on 05/16/24 13:20 UA pH 5.5 Last Edit by Falguni Downing [facility] on 05/16/24 13:20 UA Blood 80 Americo/uL Last Edit by Falguni Downing [facility] on 05/16/24 13:20 UA Specific [place] 1.015 Last Edit by Falguni Downing [facility] on 05/16/24 13:20 UA Ketone Negative Last Edit by Falguni Downing [facility] on 05/16/24 13:20 UA Bilirubin 0 mg/dL Last Edit by Falguni Downing [facility] on 05/16/24 13:20 UA Glucose 0 mg/dL Last Edit by Falguni Downing [facility] on 05/16/24 13:20 Results Reviewed Results Reviewed: Laboratory Last Values Urine pH (Auto) 5.5 05/16/24 13:09 Specific [place] (Auto) 1.015 05/16/24 13:09 Urine Protein (Auto) 15 mg/dL 05/16/24 13:09 Glucose (UA)(Auto) 0 mg/dL 05/16/24 13:09 Urine Ketones (Auto) Negative 05/16/24 13:09 Urine Blood (Auto) 80 Americo/uL 05/16/24 13:09 Urine Nitrite (Auto) Negative 05/16/24 13:09 Urine Bilirubin (Auto) 0 mg/dL 05/16/24 13:09 Urine Urobilinogen (Auto) 0.2 mg/dL 05/16/24 13:09 Leukocyte Esterase (Auto) 0 Gina/uL 05/16/24 13:09 Date of Service: 04/29/24 US RETROPERITONEAL LIMITED (RENAL ONLY) CLINICAL INFORMATION: Flank pain. COMPARISON: CT urogram 10/12/2023. Ultrasound abdomen Limited 09/01/2022. TECHNIQUE: Real-time imaging of the kidneys. FINDINGS: RIGHT KIDNEY: 10.0 x 4.1 x 4.2 cm (SAG x AP x TRV). It is normal in size and contour. There are echogenic renal pyramids present. Renal cortical thickness is normal. No calculi or focal parenchymal lesions. No hydronephrosis. There is an extrarenal pelvis present, which was present on the prior CT. LEFT KIDNEY: 9.6 x 4.7 x 5.2 cm (SAG x AP x TRV). It is normal in size and contour. There are echogenic renal pyramids present. Renal cortical thickness is normal. No calculi or focal parenchymal lesions. No hydronephrosis. IMPRESSION: 1. No hydronephrosis, mass, or definitive calculi. 2. Echogenic renal pyramids, findings suggesting renal medullary nephrocalcinosis. Differential diagnosis includes medullary sponge kidney, RTA type I, hypercalcemia, among other rare entities. Date of Service: 10/12/23 EXAMINATION: CT ABDOMEN AND PELVIS WITHOUT AND WITH CONTRAST CLINICAL INFORMATION: Microscopic hematuria. COMPARISON: Ultrasound abdomen 09/01/2022. CT abdomen/pelvis 02/27/2021. TECHNIQUE: Noncontrast CT of the abdomen and pelvis is performed followed by split bolus contrast-enhanced images using 85 mL Omnipaque 350 contrast.?Postcontrast imaging is performed during the combined nephrogram and excretion phase. Sagittal and coronal reformatted images were obtained on the technologist's workstation for both the precontrast and postcontrast phases. This CT examination was performed using dose optimization techniques as appropriate, variously including the following: *Automated exposure control *Adjustment of mA and/or kV according to patient size (this includes techniques or standardized protocols for targeted exams where dose is matched to indication/reason for exam; i.e. extremities or head) *Use of iterative reconstruction technique DLP: 1214 mGy-cm FINDINGS: LUNG BASES: Bronchial thickening and traction bronchiectasis are present at the lung bases. LIVER, GALLBLADDER, AND BILIARY TREE: The liver is normal in size, shape, and attenuation. No focal hepatic lesion or biliary ductal dilatation is present. The gallbladder is unremarkable with no evidence of radiopaque gallstones, gallbladder wall thickening, or obvious pericholecystic inflammatory changes. PANCREAS: Unremarkable. SPLEEN: Unremarkable. ADRENAL GLANDS: Unremarkable. KIDNEYS AND URETERS: The kidneys are normal in size, shape, and attenuation. There are 2 rounded areas of calcification seen in the left kidney one in the upper pole measuring 7 mm (5:246) and another in the mid kidney measuring 3 mm (5:302). A faint 3 mm area of calcification seen in the mid to lower right kidney (5:297). Similar findings can be seen on the 02/27/2021 CT scan. These do not appear to be in the renal collecting system but in the renal parenchyma. No hydronephrosis, hydroureter, or collecting system/ureteral calculi seen. Pelvicalyceal systems appear normal without filling defects or mucosal abnormalities. No renal masses are seen. No perinephric stranding. BLADDER: The bladder wall is symmetrically thickened. No bladder calculi are seen. GASTROINTESTINAL TRACT: The small and large bowel are unremarkable. No evidence of appendicitis. ABDOMINAL WALL: No significant hernia is appreciated. LYMPH NODES: No retroperitoneal lymphadenopathy. VASCULAR: Unremarkable. PELVIC VISCERA: The uterus and adnexa are unremarkable. OSSEUS STRUCTURES: Degenerative changes are present from L4 through S1. No bony destructive lesions. IMPRESSION: 1. Bilateral renal parenchymal calcifications. No collecting system calculi are seen. 2. Symmetric bladder wall thickening. Collected: 07/12/23 [facility] Received: 07/14/23 Diagnosis Urine: Negative for high-grade urothelial carcinoma. COMMENT: Examination of a monolayer preparation slide shows many benign superficial squamous cells, occasional benign urothelial cells, occasional inflammatory cells, and few red blood cells. Clinical History Microscopic hematuria Material Received Urine Gross Description Received are 70 cc of clear yellow fluid from which a ThinPrep slide is prepared. Assessment & Plan Assessment & Plan (1) History of kidney stones: Code(s): Z87.442 - Personal history of urinary calculi Category: Medical (2) Nephrocalcinosis: Code(s): E83.59 - Other disorders of calcium metabolism; N29 - Other disorders of kidney and ureter in diseases classified elsewhere Category: Medical (3) Microscopic hematuria: Code(s): R31.29 - Other microscopic hematuria Category: Medical Plan Continue to monitor for kidney stones. Follow-up in 1 year renal ultrasound prior. Nephrocalcinosis, microscopic hematuria, workup for hematuria in the past negative for malignancies we will send urine for cytology. Miriam states she follows with a groundhand. Orders: Orders AMB Urinalysis Automated Today Z13.9 - Encounter for screening, unspecified Patient Instructions: The patient had an opportunity to ask questions regarding treatment plan. The patient expressed understanding and agreement with the above treatment plan. The patient is aware they should contact our office by phone for worsening of their current condition or the appearance of new symptoms. Compliance is encouraged with any medications and followup testing that is ordered. It is a privilege to be allowed the opportunity to participate in the urologic care of your patient. If you have any questions or concerns regarding treatment for the above conditions please do not hesitate to contact me. The office telephone contact is [phone]. This note is constructed in part using voice recognition software. While every effort has been made to ensure accuracy lien searcher errors may have been included. Yours sincerely, Rah Mitchell MD Coding Level of Care Code Est Pt Level 3 (81601) Complex EM visit Add On G2211 Diagnoses History of kidney stones Z87.442 Nephrocalcinosis E83.59; N29 Microscopic hematuria R31.29
--- OUTSIDE RECORDS SUMMARY | 2024-05-16 16:43 | XMS_ITS | Patient Health Record ---
Author Organization [facility] Address [address] [place] [address] Care Team Providers Care Automatic Log Cut Off Sawyer Name Role Phone Kenroy Sánchez Primary Care Provider Unav ailable Black, Cherise Unavailable [phone] Allergies Allergen (clinical drug ingredient) Drug/Non Drug Allergy documented on EMR Reaction Allergy Type Onset Date Status Ceftin rash Drug Allergy Active ciprofloxacin Cipro rash Drug Allergy Act sonia Keflex rash Drug Allergy Active Levaquin rash Drug Allergy Active amlodipine Amlodipine rash Drug Allergy Activ e Reason For Referral No Information Medications Medication SIG (Take, Route, Frequency, Duration) Notes Start Date End Date Status Ezetimibe 10 MG 1 tablet Orally Once a day for 30 day(s) Active Biktarvy Active Spironolactone 50 MG 1 tablet Orally Onc e a day for 30 day(s) Active Metoprolol Succinate 100 MG 1 capsule Or ally Once a day for 30 day(s) Active Atorvastatin Calcium 80 MG 1 tablet Oral ly Once a day for 30 day(s) Active NIFEdipine ER 30 MG 1 tablet on an empty stomach Orally Once a day for 30 day(s) Active Aspirin 81 MG 1 tablet Orally Once a day for 30 day(s) Active Immunizations Vaccine Route Administration Date Status Comme nts COVID-19 Pfizer BioNTech Vaccine Unknown 04/17/2020 Adm inistered Social History Tobacco Use: Social History Observation Description Date Details (start date - stop date) Never Smoker NA - NA Tobacco Use/Smoking Question Answer Notes Are you a: nonsmoker Additional Findings: Tobacco Non-User Current no n-smoker Alcohol Screen Question Answer Notes Did you have a drink contain ing alcohol in the past year? Yes How often did you have a dri nk containing alcohol in the past year? 2 to 3 times a week (3 points) Points 3 Interpretation Positive Tobacco use other than smoking: Question Answer Notes Are you an other tobacco user? 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) Active confirmed Problem [id number] Pronation deformity of right foot (M21.6X1) Active confirmed Plan Of Treatment No Information Insurance Providers Payer Name Payer Address Payer Phone Subscriber Number Group Number Insured Name Patient Relationship to Insured Coverage Start Date Coverage End Date [facility] [employer] Claims [id number] [place] [id number] Miriam Chacon Self - patient is the insured Medical (General) History Medical History History ICD Code Anxiety Depression High blood pressure raynauds disease Sciatica thyroid HIV Surgical History Surgery Date(Month/Year) tubes in ears tubal ligation 2000 shoulder surgery
--- OUTSIDE RECORDS SUMMARY | 2024-05-16 16:43 | XMS_ITS | Clinical Summary ---
Author Organization [facility], Address [address] [place] [address] [place] [address] Phone Care Team Providers Care Dental Hygienist Name Role Phone Kenroy Freeman NP Primary Care Provider [phone] Allergies Active Allergy Reactions Criticality Noted Date [...] Visit [facility] [place], [address] [place] [address] Tonya Wilson PA Stage 3b chronic kidney disease (HCC) (Primary Dx); Essential hypertension; Hematuria, not otherwise specified 03/20/2024 Documentation Only [facility] [place], [address] [place] [address] Reanna Goyal from Last 3 Months Immunizations Name Administration Dates Next Due H1N1 Inj 02/25/2016 Influenza, MDCK, Quadrivalent, with preservative 01/31/2018 Family History Medical History Relation Comments Heart disease Father [place] Stroke Father Hypertension Mother Cancer Sibling 1 [...] Visit [facility] [place], [address] [place] [address] Reginaldo Eagle MD [address] [place] [address] Health Maintenance Due Date Last Done [...] Influenza Vaccine (#1) 2023 01/31/[address] [place] [id number] [facility] DUAL SNP ([id number]) [place] [id number] [address] [place] [address] [id number] [address] [place] [id number] Care Teams Dental Hygienist Relationship Specialty Start Date End Date Kenroy Freeman NP [address] [place] [address] PCP - General Nurse Practitioner 11/15/19
--- OUTSIDE RECORDS SUMMARY | 2024-05-16 16:43 | XMS_ITS | Clinical Summary ---
Author Organization [facility] [employer] it Address [address] [place] [address] Care Team Providers Care Cage Cashier Name Role Phone Unavailable Primary Care Provider [...]
--- OUTSIDE RECORDS SUMMARY | 2024-05-16 16:43 | XMS_ITS | Encounter Summary ---
Author Organization [facility] Address [address] [place] [address] Phone Care Team Providers Care Mortgage Loan Processing Clerk Name Role Phone Kenroy Freeman NIRALI Primary Care Provider Encounter Details Date Type Department Care Team (Late st Contact Info) Description 05/13/2021 Documentation Only [facility] [address] [place] [address] Jose Martin Mccall MD [address] [place] [address] Social History Tobacco Use Types [...] Visit [facility] [address] [place] [address] Reginaldo Eagle MD [address] [place] [address] documented as of this encounter Visit Diagnoses Not on filedocumented in this encounter Care Teams Mortgage Loan Processing Clerk Relationship Specialty Start Date End Date Kenroy Freeman [place] [facility] [address] PCP - General Nurse Practitioner 11/15/19 documented as of this encounter
--- OUTSIDE RECORDS SUMMARY | 2024-05-16 16:43 | XMS_ITS | Encounter Summary ---
Author Organization [facility] Address [address] [place] [address] Phone Care Team Providers Care Electrical Panel Builder Name Role Phone Kenroy Freeman NIRALI Primary Care Provider [phone] Encounter Details Date Type Department Care Team (Late st Contact Info) Description 09/27/2021 Documentation Only [facility] [address] [place] [address] Jose Martin Mccall MD [address] [place] [address] Social History Tobacco Use Types [...] Visit [facility] [address] [place] [address] Reginaldo Eagle MD [address] [place] [address] documented as of this encounter Visit Diagnoses Not on filedocumented in this encounter Care Teams Electrical Panel Builder Relationship Specialty Start Date End Date Kenroy Freeman NP [employer] [place] [address] PCP - General Nurse Practitioner 11/15/19 documented as of this encounter
--- OUTSIDE RECORDS SUMMARY | 2024-05-16 16:43 | XMS_ITS | Encounter Summary ---
Author Organization [facility] Address [address] [place] [address] Phone Care Team Providers Care Well Cleaner Name Role Phone Kenroy Freeman NIRALI Primary Care Provider [phone] Encounter Details Date Type Department Care Team (Late st Contact Info) Description 08/08/2022 Documentation Only [facility] [address] [place] [address] Tonya Wilson PA [address] [place] [address] Social History Tobacco Use Types [...] Visit [facility] [address] [place] [address] Reginaldo Eagle MD [address] [place] [address] documented as of this encounter Visit Diagnoses Not on filedocumented in this encounter Care Teams Well Cleaner Relationship Specialty Start Date End Date Kenroy Freeman NP [facility] [place] [address] PCP - General Nurse Practitioner 11/15/19 documented as of this encounter
--- OUTSIDE RECORDS SUMMARY | 2024-05-16 16:43 | XMS_ITS | Encounter Summary ---
Author Organization [facility] Address [address] [place] [address] Phone Care Team Providers Care Golf Course Manager Name Role Phone Kenroy Freeman NIRALI Primary Care Provider [phone] Encounter Details Date Type Department Care Team (Late st Contact Info) Description 08/18/2021 Documentation Only [facility] [address] [place] [address] Jose Martin Mccall MD [address] [place] [address] Social History Tobacco Use Types [...] Visit [facility] [address] [place] [address] Reginaldo Eagle MD [address] [place] [address] documented as of this encounter Visit Diagnoses Not on filedocumented in this encounter Care Teams Golf Course Manager Relationship Specialty Start Date End Date Kenroy Freeman NP [facility] [place] [address] PCP - General Nurse Practitioner 11/15/19 documented as of this encounter
--- OUTSIDE RECORDS SUMMARY | 2024-05-16 16:43 | XMS_ITS | Encounter Summary ---
Author Organization [facility] Address [address] [place] [address] Phone Care Team Providers Care Early Breastfeeding Care Specialist Name Role Phone Kenroy Freeman NIRALI Primary Care Provider [phone] Encounter Details Date Type Department Care Team (Late st Contact Info) Description 03/20/2024 Documentation Only [facility] [address] [place] [address] Reanna Goyal [address] [place] [address] Social History Tobacco Use Types [...] Visit [facility] [address] [place] [address] Reginaldo Eagle MD [address] [place] [address] documented as of this encounter Visit Diagnoses Not on filedocumented in this encounter Care Teams Early Breastfeeding Care Specialist Relationship Specialty Start Date End Date Kenroy Freeman NP [facility] [place] [address] PCP - General Nurse Practitioner 11/15/19 documented as of this encounter
--- OUTSIDE RECORDS SUMMARY | 2024-05-16 16:43 | XMS_ITS | Encounter Summary ---
Author Organization [facility] Address [address] [place] [address] Phone Care Team Providers Care Carpet Inspector Name Role Phone Kenroy Freeman NIRALI Primary Care Provider [phone] Encounter Details Date Type Department Care Team (Late st Contact Info) Description 08/18/2022 Documentation Only [facility] [address] [place] [address] [place] [address] [place] [address] Social History Tobacco Use Types [...] Visit [facility] [address] [place] [address] Reginaldo Eagle MD [address] [place] [address] documented as of this encounter Visit Diagnoses Not on filedocumented in this encounter Care Teams Carpet Inspector Relationship Specialty Start Date End Date Kenroy Freeman NP [facility] [place] [address] PCP - General Nurse Practitioner 11/15/19 documented as of this encounter
--- OUTSIDE RECORDS SUMMARY | 2024-05-16 16:43 | XMS_ITS | Encounter Summary ---
Author Organization [facility] Address [address] [place] [address] Phone Care Team Providers Care Assessment Expert Name Role Phone Kenroy Freeman NIRALI Primary Care Provider [phone] Encounter Details Date Type Department Care Team (Late st Contact Info) Description 08/18/2021 Documentation Only [facility] [address] [place] [address] Jose Martin Mccall MD [address] [place] [address] Social History Tobacco Use Types [...] Visit [facility] [address] [place] [address] Reginaldo Eagle MD [address] [place] [address] documented as of this encounter Visit Diagnoses Not on filedocumented in this encounter Care Teams Assessment Expert Relationship Specialty Start Date End Date Kenroy Freeman NP [facility] [place] [address] PCP - General Nurse Practitioner 11/15/19 documented as of this encounter
--- OUTSIDE RECORDS SUMMARY | 2024-05-16 16:43 | XMS_ITS | Encounter Summary ---
Author Organization [facility] Address [address] [place] [address] Phone Care Team Providers Care Patternmaker Plaster Name Role Phone Kenroy Freeman NIRALI Primary Care Provider [phone] Encounter Details Date Type Department Care Team (Late st Contact Info) Description 09/19/2022 Documentation Only [facility] [address] [place] [address] Tonya Wilson PA [address] [place] [address] Social History Tobacco Use Types [...] Visit [facility] [address] [place] [address] Reginaldo Eagle MD [address] [place] [address] documented as of this encounter Visit Diagnoses Not on filedocumented in this encounter Care Teams Patternmaker Plaster Relationship Specialty Start Date End Date Kenroy Freeman NP [facility] [place] [address] PCP - General Nurse Practitioner 11/15/19 documented as of this encounter
--- OUTSIDE RECORDS SUMMARY | 2024-05-16 16:43 | XMS_ITS | Encounter Summary ---
Author Organization [facility] Address [address] [place] [address] Phone Care Team Providers Care Sack Sorter Name Role Phone Kenroy Freeman NIRALI Primary Care Provider [phone] Encounter Details Date Type Department Care Team (Late st Contact Info) Description 06/02/2023 Documentation Only [facility] [address] [place] [address] Reanna Goyal [address] [place] [address] Social History Tobacco Use Types [...] Visit [facility] [address] [place] [address] Reginaldo Eagle MD [address] [place] [address] documented as of this encounter Visit Diagnoses Not on filedocumented in this encounter Care Teams Sack Sorter Relationship Specialty Start Date End Date Kenroy Freeman NP [facility] [place] [address] PCP - General Nurse Practitioner 11/15/19 documented as of this encounter
--- OUTSIDE RECORDS SUMMARY | 2024-05-16 16:43 | XMS_ITS | Encounter Summary ---
Author Organization [facility] Address [address] [place] [address] Phone Care Team Providers Care Sweatband Separator Name Role Phone Kenroy Freeman NIRALI Primary Care Provider [phone] Encounter Details Date Type Department Care Team (Late st Contact Info) Description 06/01/2023 Documentation Only [facility] [address] [place] [address] Deya Chowdhury [address] [place] [address] Social History Tobacco Use Types [...] Visit [facility] [address] [place] [address] Reginaldo Eagle MD [address] [place] [address] [place] [address] documented as of this encounter Visit Diagnoses Not on filedocumented in this encounter Care Teams Sweatband Separator Relationship Specialty Start Date End Date Kenroy Freeman NP [facility] [address] PCP - General Nurse Practitioner 11/15/19 documented as of this encounter
--- OUTSIDE RECORDS SUMMARY | 2024-05-16 16:43 | XMS_ITS | Encounter Summary ---
Author Organization [facility] Address [address] [place] [address] Phone Care Team Providers Care Journeyman Power Plant Operator Name Role Phone Kenroy Freeman NIRALI Primary Care Provider [phone] Encounter Details Date Type Department Care Team (Late st Contact Info) Description 10/13/2021 Documentation Only [facility] [address] [place] [address] Jose Martin Mccall MD [address] [place] [address] Social History Tobacco Use Types [...] Visit [facility] [address] [place] [address] Reginaldo Eagle MD [address] [place] [address] documented as of this encounter Visit Diagnoses Not on filedocumented in this encounter Care Teams Journeyman Power Plant Operator Relationship Specialty Start Date End Date Kenroy Freeman NP [facility] [place] [address] PCP - General Nurse Practitioner 11/15/19 documented as of this encounter
--- OUTSIDE RECORDS SUMMARY | 2024-05-16 16:43 | XMS_ITS | Encounter Summary ---
Author Organization [facility] Address [address] [place] [address] Phone Care Team Providers Care Test Director Name Role Phone Kenroy Freeman NP Primary Care Provider [phone] Encounter Details Date Type Department Care Team (Late st Contact Info) Description 03/01/2021 Documentation Only [facility] [address] [place] [address] Falguni Whitney PA Social History Tobacco Use [...] [facility] [address] [place] [address] Reginaldo Eagle MD [address] [place] [address] [place] [address] documented as of this encounter Visit Diagnoses Not on filedocumented in this encounter Care Teams Test Director Relationship Specialty Start Date End Date Kenroy Freeman NP [address] [place] [address] PCP - General Nurse Practitioner 11/15/19 documented as of this encounter
== END 2024-05-16 13:52 | disposition home or self-care (01) ==
PROVIDERS: PCP Nurse Practitioner Family; Visit Provider Urology
DX: Z87.442 Personal history of urinary calculi (principal); E83.59 Other disorders of calcium metabolism; N29 Other disorders of kidney and ureter in diseases classified elsewhere; R31.29 Other microscopic hematuria; Z13.9 Encounter for screening, unspecified
CPT/HCPCS: 99213; G2211

== ENCOUNTER 2024-05-16 12:53 | Outpatient (REF) | payer OTHER, SELFPAY ==
[2024-05-16 16:57] LABS: Urine Cytology See Pathology rpt
--- OUTSIDE RECORDS SUMMARY | 2024-05-16 19:39 | XMS_ITS | Data Portability ---
Author Organization [facility], Co in - [facility] Address [address] [place] [id number] Care Team Providers Care Spiritual Counselor Name Role Phone KATHY TEIXEIRA Primary Care Provider [phone] HIM CCA OTHER Assessment Encounter Date Assessment Date Assessment LastModified by Organization Details LastModified Time 07/27/2023 07/27/2023 As noted, we were called to see this patient regarding concerns of weakness. Evaluation in the field was performed by my practicing urologist colleague, as noted above, I provided real-time direction and supervision for this visit. The evaluation revealed 57y F with ER visit 2d ago for bradycardia. Rec'd to hold metoprolol, BP now moderaley elevated and HR in normal range. Still feeling weak. Dischrage paperwork confirms labs assessment and cardiac monitoring completed and normal. No change or worsening of sxs since ER + sxs mild. Provided reassurance and rec f/u w PCP. Impression: weakness Plan: encourage f/u w PCP Primary care, consider eval in next ~7d Disposition: We discussed the diagnostic uncertainty of home visits and the risk associated with this. In this case, the patient and I felt this to be an acceptable and reasonable amount of risk given the benefit of avoiding an ED visit. We discussed the need to seek care urgently/emerge ntly in the setting of any new or worsening serious symptoms, particularly worsening atigue, weakness, chest pain, shob, confusion, fever atilhou Not available 07/27/2023 18:18:17 Plan of Treatment Reminders Order Date Submit Date Provider Last Modified By Organization Details Last Modified Time Details Appointments None recorded. Lab rapid flu (A+B) 2021 022 [email or web address] [facility], [address] [place] [address], [id number], 09/29/202 2 21:38:31 rapid SARS CoV 2 Ag, QL IA, respiratory specimen 2021 022 [email or web address] [facility], [address] [place] [address], [id number], 2 21:38:31 rapid strep group A, throat 2021 022 [email or web address] [facility], [address] [place] [address], [id number], 2 21:38:31 culture, urine 2023 024 [email or web address] [facility], [address] [place] [address], [place], [address], 4 09:51:23 urinalysis, dipstick 2023 024 [facility], [address] [place] [address], [id number], 4 15:29:52 rapid SARS CoV 2 Ag, QL IA, respiratory specimen 2023 024 [facility], [address] [place] [address], [id number], 4 20:47:12 rapid flu (A+B) 2023 024 [facility], [address] [place] [address], [id number], 4 20:47:49 Referral None recorded. Procedures None recorded. Surgeries None recorded. Imaging None recorded. Medication Orders potassium chloride ER 20 mEq tablet,exte nded release 2021 022 [email or web address] Not available 21:38:31 Bactrim DS 800 mg-160 mg tablet 2023 024 [id number], [address] [place], [place], [id number], 4 13:03:33 Paxlovid 300 mg (150 mg x 2)-100 mg tablets in a dose pack 2023 024 [id number], [address] [facility], [place], [place], [phone], 4 14:35:21 Patient TargetsNo targets recorded. Patient InstructionsNo instructions recorded. Reason for Referral None Reported. Results Created Date Observation Date Name Description Value Unit Range Abnormal Flag Note LastModifiedBy Organization Detail LastModifiedTime 10/23/19 24 10/23/2023 URINA LYSIS MACRO SCOPI C color TNP TEST NOT PERFO RMED No suita ble speci men recei anjana. Pleas e revie w the test requi remen ts at testd irect ory.q uestd iagno [email or web address] Not Available [facility] [place] [facility] [address], [place], [address], 10/23/2023 15:48:24 10/23/19 24 10/23/2023 SPECI MEN ID NOTIF ICATI ON ANIBAL NG SECON D ID comment: Speci men label s must inclu de two forms of patie nt ID. Only one uniqu e ident ifier was prese nt on the sampl e(s). The testi ng you reque sted will be proce ssed; howev er, going forwa rd pleas e provi de two ident ifier s as requi red by the [facility] ([facility]) . Not Available [facility] [place] [facility] [address], [place], [address], 10/23/2023 15:48:25 10/23/19 24 10/23/2023 PATIE NT ID APPRO EDISON TIQ DOCUM ENTAT ION comment Ident ifica tion of test requi sitio n and/o r speci men(s ) was quest ionab le. The below named indiv idual provi ded this burton ed patie nt ident ifica tion. Not Available [facility] [place] [facility] [address] [place], [place], [address], 10/23/2023 15:48:25 10/23/19 24 10/23/2023 PATIE NT ID APPRO EDISON TIQ DOCUM ENTAT ION contact FAX Not Available [facility] [place] [facility] [address] [place], [place], [address], 10/23/2023 15:48:25 10/23/19 24 10/23/2023 PATIE NT ID APPRO EDISON TIQ DOCUM ENTAT ION tests affected 395 Not Available [facility] [place] [facility] [address] [place], [place], [address], 10/23/2023 15:48:25 10/23/19 24 10/23/2023 CULTU RE, URINE , ROUTI NE culture, urine, routine SEE NOTE CULTU RE, URINE , ROUTI NE Micro Numbe r: [id number] Test Statu s: Final Speci men Sourc e: Urine Speci men Quali ty: Adequ ate Resul t: Mixed genit al porsche isola marely. These super ficia l bacte emmy are not indic ative of a urina ry tract infec tion. No furth er organ ism ident ifica tion is warra nted on this speci men. If clini marine indic ated, recol lect clean -catc h, mid-s tream urine and trans madeleine immed iatel y to Urine Cultu re Trans port Tube. A terry danielle repor t [facility]: Faxed to: [phone] on: 10/19 18:29 NO COLLE CTION DATE RECEI ANJANA. WE HAVE USED THE DATE THE SPECI MEN WAS RECEI ANJANA BY THIS LABOR ATORY THE COLLE CTION DATE. IF THIS IS INCOR RECT, PLEAS E CONTA CT CLIEN T SERVI JUANY. PHONE NUMBE R: [phone] Not Available [facility] [place] [facility] [address], [place], [address], 10/23/2023 15:48:26 01/14/20 22 01/13/2022 rapid strep group A, throa t Strep negati ve Not Available [facility] [address] [place] [address], [id number], 01/13/2022 21:37:04 01/14/20 22 01/13/2022 rapid SARS CoV 2 Ag, QL IA, respi rator y speci men rapid SARS CoV 2 Ag, QL IA, respiratory specimen negati ve Not Available [facility] [address] [place] [address], [phone], 01/13/2022 21:37:00 01/14/20 22 01/13/2022 rapid flu (A+B) Flu negati ve Not Available [facility] [address] [place] [address], [phone], 01/13/2022 21:36:59 Result Notes None recorded. Medical Equipment None Reported. Allergies Allergen ID Allergen Name Allergen Category Reaction Reaction Severity Criticality Documentation Date Start Date Code Code System Note Provider Name and Address Organization Details Recorded Time 8589 cephalexi n medicatio n Not available Not available Not available 02/13/2024 2231 RxNorm Not Available [facility] 4 03:45:22 8590 levofloxa lora medicatio n Not available Not available Not available 02/13/2024 36438 RxNorm Not Available [facility] 4 03:45:22 Medications Name Sig Start Date Stop Date Status Note LastModified by Organization Details LastModified Time atorvastatin 80 mg tablet TAKE 1 TABLET BY MOUTH DAILY active Not Available Not Available Not Available paroxetine 10 mg tablet TAKE 1 TABLET BY MOUTH EVERY DAY active Not Available Not Available No t Available ondansetron HCl 4 mg tablet TAKE 1 TABLET BY MOUTH EVERY 8 HOURS NEEDED FOR NAUSEA OR VOMITING active Not Available Not Available No t Available prednisone 20 mg tablet TAKE 2 TABLETS BY MOUTH DAILY FOR 5 DAYS active Not Available Not Available N ot Available doxycycline hyclate 50 mg capsule TAKE ONE CAPSULE BY MOUTH DAILY WITH FOOD FOR MAINTENANCE active Not Available Not Available Not Available metoprolol succinate ER 100 mg tablet,exten ded release 24 hr TAKE 1 TABLET BY MOUTH TWICE DAILY active Not Available Not Available No t Available miconazole nitrate 2 % vaginal cream INSERT 1 APPLICATORF UL VAGINALLY AT BEDTIME FOR 7 DAYS active Not Available Not Available N ot Available nifedipine ER 30 mg tablet,exten ded release TAKE 1 TABLET BY MOUTH DAILY active Not Available Not Available Not Available sulfamethoxa zole 800 mg-trimethop rim 160 mg tablet TAKE 1 TABLET BY MOUTH EVERY 12 HOURS FOR 5 DAYS active Not Available Not Available N ot Available minoxidil 2.5 mg tablet TAKE 1/2 TABLET BY MOUTH DAILY FOR HAIR LOSS active Not Available Not Available No t Available aspirin 81 mg tablet,delay ed release active Not Available Not Available N ot Available doxycycline monohydrate 100 mg tablet TAKE 1 TABLET BY MOUTH TWICE DAILY active Not Available Not Available No t Available acetaminophe n 500 mg tablet TAKE 2 TABLETS BY MOUTH EVERY 6 HOURS NEEDED FOR FEVER OR FOR PAIN active Not Available Not Available No t Available levothyroxin e 100 mcg tablet TAKE 1 TABLET BY MOUTH DAILY active Not Available Not Available Not Available levothyroxin e 88 mcg tablet TAKE 1 TABLET BY MOUTH DAILY active Not Available Not Available Not Available citalopram 20 mg tablet TAKE 1 AND 1/2 TABLETS BY MOUTH EVERY DAY active Not Available Not Available No t Available tamsulosin 0.4 mg capsule TAKE 1 CAPSULE BY MOUTH AT BEDTIME FOR 14 DAYS active Not Available Not Available No t Available diphenhydram ine 25 mg capsule TAKE 1 CAPSULE BY MOUTH EVERY 6 HOURS NEEDED FOR ITCHINESS active Not Available Not Available No t Available nitrofuranto in macrocrystal 100 mg capsule TAKE 1 CAPSULE BY MOUTH TWICE DAILY WITH FOOD FOR 5 DAYS active Not Available Not Available No t Available aspirin 81 mg chewable tablet CHEW AND SWALLOW 1 TABLET BY MOUTH DAILY active Not Available Not Available Not Available lorazepam 1 mg tablet TAKE 1 TABLET BY MOUTH AT BEDTIME NEEDED active Not Available Not Available No t Available polyethylene glycol 3350 17 gram/dose oral powder TAKE 238 GRAMS ORALLY ONCE DIRECTED BY [facility] active Not Available Not Available No t Available estradiol 0.01% (0.1 mg/gram) vaginal cream USE PEA-SIZE AMOUNT ON FINGERTIP AND APPLY VAGINALLY AT BEDTIME DAILY active Not Available Not Available No t Available albuterol sulfate HFA 90 mcg/actuatio n aerosol inhaler INHALE 1 PUFF FOUR TIMES DAILY NEEDED FOR SHORTNESS OF BREATH OR WHEEZING active Not Available Not Available Not Available paroxetine 40 mg tablet TAKE 1 TABLET BY MOUTH EVERY NIGHT AT BEDTIME TAKE WITH 10 MG FOR TOTAL DOSE 50 MG active Not Available Not Available No t Available ketoconazole 2 % topical cream APPLY TOPICALLY TWICE DAILY active Not Available Not Available Not Available betamethason e dipropionate 0.05 % topical ointment APPLY TO AFFECTED AREAS ON SCALP EVERY OTHER DAY active Not Available Not Available No t Available doxycycline hyclate 100 mg tablet TAKE 1 TABLET BY MOUTH EVERY 12 HOURS FOR 5 DAYS active Not Available Not Available N ot Available naproxen 500 mg tablet TAKE 1 TABLET BY MOUTH TWICE DAILY active Not Available Not Available No t Available spironolacto ne 50 mg tablet TAKE 1 TABLET BY MOUTH TWICE DAILY active Not Available Not Available No t Available levothyroxin e 112 mcg tablet TAKE 1 TABLET BY MOUTH DAILY active Not Available Not Available Not Available ezetimibe 10 mg tablet TAKE 1 TABLET BY MOUTH DAILY active Not Available Not Available Not Available Laxative (bisacodyl) 5 mg tablet TAKE 4 TABLETS BY MOUTH FOR 1 DAYS. TAKE AT NOON THE DAY BEFORE YOUR COLONOSCOPY active Not Available Not Available Not Available nitrofuranto in monohydrate/ macrocrystal s 100 mg capsule TAKE 1 CAPSULE BY MOUTH DAILY NEEDED FOR USE POST SEXUAL ACTIVITY. MUST ADMINISTER WITH A MEAL/FOOD. active Not Available Not Available N ot Available cholecalcife rol (vitamin D3) 50 mcg (2,000 unit) capsule TAKE 1 CAPSULE BY MOUTH DAILY active Not Available Not Available Not Available levothyroxin e 100 mcg capsule TAKE 1 CAPSULE BY MOUTH ONCE A WEEK. TAKE 88MCG ALL OTHER DAYS OF THE WEEK active Not Available Not Available No t Available Praluent Pen 75 mg/mL subcutaneous pen injector ADMINISTER 1 ML UNDER THE SKIN EVERY 2 WEEKS active Not Available Not Available No t Available Biktarvy 50 mg-200 mg-25 mg tablet TAKE 1 TABLET BY MOUTH DAILY active Not Available Not Available Not Available Paxlovid 300 mg (150 mg x 2)-100 mg tablets in a dose pack TK 2 NIRMATRELVI R TS AND 1 RITONAVIR T TOGETHER PO BID FOR 5 DAYS active Not Available Not Available No t Available Vitals Date Recorded Respiratory rate Body temperature Body weight Oxygen saturation Oxygen saturation in Arterial blood by Pulse oximetry Heart rate Systolic blood pressure Diastolic blood pressure Provider Name and Address Organization Details Last Updated DateTime 4 18 /min 96.9 [degF] 753578. 2 g 100 % 100 % 70 /min 172 mm[Hg] 104 mm[Hg] Not Available [facility] 4 18:07:31 Date Recorded Respiratory rate Oxygen saturation Oxygen saturation in Arterial blood by Pulse oximetry Heart rate Body temperature Systolic blood pressure Diastolic blood pressure Provider Name and Address Organization Details Last Updated DateTime 4 18 /min 99 % 99 % 82 /min 97.4 [degF] 132 mm[Hg] 82 mm[Hg] Not Available [facility] 4 12:54:21 Date Recorded Oxygen saturation Oxygen saturation in Arterial blood by Pulse oximetry Heart rate Respiratory rate Body temperature Systolic blood pressure Diastolic blood pressure Provider Name and Address Organization Details Last Updated DateTime 4 95 % 95 % 110 /min 20 /min 98.1 [degF] 130 mm[Hg] 90 mm[Hg] Not Available [employer] 4 14:16:32 Date Recorded Oxygen saturation Oxygen saturation in Arterial blood by Pulse oximetry Body weight Body height Body temperature Respiratory rate Heart rate Body temperature Oxygen saturation Oxygen saturation in Arterial blood by Pulse oximetry Heart rate Body height Body weight Respiratory rate Systolic blood pressure Diastolic blood pressure Systolic blood pressure Diastolic blood pressure Provider Name and Address Organization Details Last Updated DateTime 2 96 % 96 % 74712.2 4 g 154.94 cm 97.4 [degF] 20 /min 130 /min 97.4 [degF] 96 % 96 % 130 /min 154.94 cm 53346.2 4 g 20 /min 128 mm[Hg] 84 mm[Hg] 128 mm[Hg] 84 mm[Hg] Not Available [employer] 2 17:44:08 Social History None recorded. Functional Status None recorded. Mental Status None recorded. Family History Nothing Reported. Medical History No medical history recorded. Gynecological HistoryNo gynecological history recorded. Obstetrics History GPAL:G 0 P 0 0 0 0 Past Encounters Encounter ID Performer Location Encounter Start Date Encounter Closed Date Diagnosis/Indication Diagnosis SNOMED-CT Code Diagnosis ICD10 Code Diagnosis Note [id number] Ray Goyal MD [facility] [address] [place] [phone] 01/13/2022 15:51:31 01/17/2022 16:23:27 Cough 17900841 R05.9 COVID, Flu, strep negative. No s/s of pneumonia or asthma exacerbati on. O2 sat normal. Supportive care. Tachycardia 4737037 R00. [address]-T wave changes. HR came down to 103 Hypokalemia 86435712 E87 .6 Repleted [place] 40 [place] [id number] Kiki Martinez MD [facility] [address] [place] [id number] 07/27/2023 18:07:29 07/28/2023 12:52:04 Weakness present [id number] M62.81 [id number] Ray Goyal MD [facility] [address] [place] [phone] 10/14/2023 12:50:48 10/15/2023 21:01:10 Dysuria 08044234 R30.0 Recently treated with Macrobid (treated five days prior), now with worsening pain. Amenable to trying antibiotic prior to obtaining culture. Discussed red flag signs for which to seek higher level of care. [id number] Ray Goyal MD [facility] [address] [place] [phone] 11/30/2023 14:02:19 12/01/2023 13:01:16 COVID-19 582713781 U07.1 COVID positive. Flu negative. s/p vaccinatio ns for COVID. O2 sats stable. Given HIV and HTN will consider Paxlovid treatment as well as symptoms fewer than 5 days. Advised to hold Atorvastat in for 10 days and to alternate days of treatment of Nifedepime and resume daily if her BP increases while on Paxlovid treatment. patient adamantly refuses. Understand s risk of further infection and decompensa tion and states will go to ED tomorrow. Patient has capacity to refuse ED, and states that if symptoms worsen overnight will suzi 911. Health Concerns Section Related Observation LastModified by Organization Detai ls LastModified Time None Recorded Concern Status LastModified by Organization Details LastModified Time None Recorded Advance Directives Directive None Recorded Payers Encounter Date Sequence Insurance Name Policy Number Policy Lala Covered Member ID Lala Member ID Guarantor Name 01/13/2022 1 [facility] - DOS PRIOR TO 2022 - DUAL ELIGIBLE (MEDICARE REPLACEMENT/ADV ANTAGE - HMO) Miriam Oswaldo [id number] Miriam Gallardo Oswaldo 07/27/2023 1 [facility] - DOS ON OR AFTER 2022 - DUAL ELIGIBLE - [employer] OPT[employer] AND ONE CARE (MEDICARE REPLACEMENT/ADV ANTAGE - HMO) Miriam Oswaldo [id number] Miriam Lillyshahzad 10/14/2023 1 [facility] - DOS ON OR AFTER 2022 - DUAL ELIGIBLE - [employer] OPTIONS AND ONE CARE (MEDICARE REPLACEMENT/ADV ANTAGE - HMO) Miriam Lancasteranatoly [id number] Miriam Gallardo Oswaldo 11/30/2023 1 [facility] - DOS ON OR AFTER 2022 - DUAL ELIGIBLE - [employer] OPTIONS AND ONE CARE (MEDICARE REPLACEMENT/ADV ANTAGE - HMO) Miriam Lancasteranatoly [id number] Miriam Gallardo Oswaldo Notes Date Note Type Note Provider Name and Address Organization Details Recorded Time 01/13/2022 text/html HPI: Referral taken over the phone by members rn managed care. Member with cold like symptoms since Monday. Member c/o cough, congestion, fatigued and unable to sleep. Home covid test negative. CM unsure if member has phlegm, fever/chills or any hx of asthma/copd. Per CM member safe and stable to wait for an [facility] visit. ................... ................... ................... ................... ................... ................... ................... ........ CRC Nursing Assessment: Comments: CRC RN did not require any additional information to process this visit. ................... ................... ................... ................... ................... ................... ................... ........ Playground Monitor Note: Sent to a call for a pt complaining of cough, congestion, and fatigue since Monday. SC8 arrives on scene, pt is alert and oriented. Airway is patent. Pt complains of headache, productive cough (clear phlegm), congestion, fatigue, bilateral lower abdominal pain when coughing, and partial urinary incontinence. Pt has been eating and drinking small amounts. Pt denies dizziness, cp, sob, n/v/d, fever, dysuria, polyuria, or loc. Pt has been taking Tylenol. BP:128/84, P:130, RR:20, SpO2:96% RA, T:97.4; Lung sounds: clear bilaterally; Throat: no erythema, edema, or exudate; Abdomen: soft, non-tender, no distention; Skin: pink, warm, dry; Rapid covid test: neg, rapid flu test: neg; Urine sample obtained; Urine dip: Results uploaded to [facility]; [facility] orders 12 lead ECG, Rapid Strep test, and POC CMP; Rapid strep: neg; blood sample obtained via venous blood draw; CMP results: potassium low; ECG results: uploaded to [facility]. [facility] orders Potassium 40meq PO; Potassium administered. Red flags discussed. Pt has no further questions. ................... ................... ................... ................... ................... ................... ................... ........ Disposition: Fulfilled Ray Goyal MD [address] [facility],[address], [place], [phone], [employer] 01/13/2022 21:38:55 07/27/2023 text/html CRC Nurse Triage Notes (Loulou Pimentel): Chief Complaints: Weakness/Lethargy PMH: Hypertension, Other Comments: PMH: Hypothyroid, HIV Member was recently seen in the ED for bradycardia in the 50's. No interventions taken related to bradycardia. Member. Feeling weakness and fatigue over the last 2 days. Denies chest pain, shortness of breath or dizziness. Prescribed metoprolol daily for HTN. Unable reach [employer] today. HR 50's today. Reviewed RED flags. Instructed member to call 911 for worsening signs/symptoms. ................... ................... ................... ................... ................... ................... ................... ........ Playground Monitor Note From Renato Bangura: Pt co fatigue and weakness. Pt sts no other complaints. Denies CP sob NVD NC headache dizziness blurred vision abdominal or any pain. Pt was seen in Ed for soft BP 2 days ago was released with no required treatments. EKG and Blood work were performed both unremarkable. Baseline vitals assessed. Bp elevated. Pt sts stopped taking her RX metoprolol . Lungs clear no edema. [facility] contacted and advised pt to follow up with child specialist and pcp. Pt education on signs indicating the ER. ................... ................... ................... ................... ................... ................... ................... ........ Disposition: Fulfilled Kiki Martinez MD [address] [facility],[address], [place], [phone], [employer] 07/27/2023 18:47:44 10/14/2023 text/html CRC Nurse Triage Notes (Ruma Garay): Reason For Request: UTI Chief Complaints: UTI/Pyelonephritis PMH: Hypertension Allergies: Cephalexin, Levofloxacin Comments: Member calling in to place a referral, identified via name and . Member who was seen in the ED a couple weeks ago, was told she had a kidney stone, was prescribed an abx. Member had a CT scan yesterday, has not been told the results. Member is having severe urgency and frequency with incontinence, abdominal pain and pelvic pressure, urine dark and frothy, has chronic back pain but is worse, she had nausea 2 days ago, slight blood when wiping, none present in the toilet. denies foul odor, no fever/chills. Member would like to be evaluated. [employer] Monitor POC Test Results from Deyanira Guy Urine Dipstick (12:54:34) Urine leukocytes: 125 WING Urine nitrites: - NIT Urine urobilinogen: 0.2 URO Urine protein: - PRO Urine pH: 5.0 pH Urine blood: ++ BLO Urine specific gravity: 1.010 SG Urine ketones: - KET Urine bilirubin: - NELLA Urine glucose: - GLU Attachments uploaded as part of this test result can be found under Documents section. ................... ................... ................... ................... ................... ................... ................... ........ Playground Monitor Note From Deyanira Guy: Pt with two weeks of left-sided flank pain, pelvic pain, pain with urination, and malodorous urine, increased urinary frequency with incontinence over last 2-3 days. A&ox3, VSS, afebrile. Pt was seen at urgent care, rx course of macrobid which finished Monday, and received CT for possible kidney stones, as not yet received results. Urine dip positive, [facility] consulted and rx course of bactrim, urine culture obtained for send out. Pt will follow up with pcp Monday, red flags reviewed. Playground Monitor Allergies: Cephalexin, Levofloxacin ................... ................... ................... ................... ................... ................... ................... ........ Disposition: Fulfilled Ray Goyal MD [address] [place] [address],[address], [place], [address], [employer] 10/14/2023 13:34:41 11/30/2023 text/html CRC Nurse Triage Notes (Loulou Pimentel): Reason For Request: Pt reporting cold like symptoms > unable to eat in 2 days>issues with her lower back>Legs and arms on the LEFT side are going numb Chief Complaints: Cough, Weakness/Lethargy, Pain PMH: Hypertension, HIV Allergies: Cephalexin, Levofloxacin Comments: Dietary Aide Cook verified the member's name//address and phone number. Cold symptoms since Monday. + cough, rhinnorhea, and fatigue. Denies fever. Exposed to boyfriend who was sick. Decreased appetite x2 days. Drinking fluids. c/o lower abdominal pain and increased bowel movement frequency. No diarrhea. Education provided on the response time and the member was advised to monitor reported s/s and seek emergency treatment if needed. Playground Monitor Organization Information for Obinna Sutton Business Legal Name: [employer]? Address: [address] [place] [address], Metallurgy Teacher: Mark Velazquez MD [facility] No.: [id number] Playground Monitor POC Test Results from Obinna Sutton Rapid COVID antigen (15:27:55) COVID: + Rapid influenza antigen (15:27:56) Flu: - Urine Dipstick (15:36:39) Urine leukocytes: NR Urine nitrites: NR Urine urobilinogen: NR Urine protein: NR Urine pH: NR Urine blood: NR Urine specific gravity: NR Urine ketones: NR Urine bilirubin: NR Urine glucose: NR ................... ................... ................... ................... ................... ................... ................... ........ Playground Monitor Note From Obinna Sutton: Dispatched to the call address for a female pt. with flu-like symptoms. pt. was found alert and oriented x3 in her apartment. pt. noted x3 days she has felt weak, lethargic, cough and congestion. pt. also noted bilateral flank pain with increase in frequency of urine and numbness and tingling in her left arm and left leg starting today. -stroke scale findings. pt. noted history of HIV taking medications for it and also informed ems she was covid vaccinated but never had the virus. pt. vitals assessed on scene. -chest pain -sob -dizziness -nvd -abd pain -blurred vision. [facility] contacted and ordered flu and covid test with U/A. Covid test was positive negative on flu and urine showed positive ketones and blood. [facility] ordered the patient Paxlovid to her pharmacy for the covid symptoms following confirmation it would not interact with medications. ordered to discontinue atorvastatin during treatment. pt. assessment airway open and patent breathing non labored circulation +radial pulse -heent abnormalities -jvd -tracheal deviation +and= chest rise and fall abd soft and non tender pelvis in tact +cms in all extremities -dcapbtls -stroke scale findings. red flag warnings discussed with patient and informed to call 911 if anything worsened.all times are approx.report completed by jah sutton. ................... ................... ................... ................... ................... ................... ................... ........ Disposition: Fulfilled Ray Goyal MD [address] [facility],[address], [place], [address], [employer] 11/30/2023 16:52:34 OBGyn Episode No OBEpisode recorded.
--- OUTSIDE RECORDS SUMMARY | 2024-05-16 19:39 | XMS_ITS | Encounter Summary ---
Author Organization [facility] Address [address] [place] [address] Phone Care Team Providers Care Ironing Pleater Name Role Phone Kenroy Freeman NIRALI Primary Care Provider [phone] Encounter Details Date Type Department Care Team (Late st Contact Info) Description 09/19/2022 Documentation Only [facility] [address] [place] [address] Tonya Wilson PA [address] [place] [address] Social History Tobacco Use Types [...] Visit [facility] [address] [place] [address] Reginaldo Eagle MD [address] [facility] [place] [address] documented as of this encounter Visit Diagnoses Not on filedocumented in this encounter Care Teams Ironing Pleater Relationship Specialty Start Date End Date Kenroy Freeman NP [facility] [place] [address] PCP - General Nurse Practitioner 11/15/19 documented as of this encounter
--- OUTSIDE RECORDS SUMMARY | 2024-05-16 19:39 | XMS_ITS | Encounter Summary ---
Author Organization [facility] Address [address] [place] [address] Phone Care Team Providers Care Special Education Paraprofessional Name Role Phone Kenroy Freeman NIRALI Primary Care Provider [phone] Encounter Details Date Type Department Care Team (Late st Contact Info) Description 08/18/2022 Documentation Only [facility] [address] [place] [address] Elana [employer], [place] [address] [place] [address] Social History Tobacco Use Types [...] [facility] [address] [place] [address] Reginaldo Eagle MD [address] [facility] [place] [address] documented as of this encounter Visit Diagnoses Not on filedocumented in this encounter Care Teams Special Education Paraprofessional Relationship Specialty Start Date End Date Kenroy Freeman NP [facility] [place] [address] PCP - General Nurse Practitioner 11/15/19 documented as of this encounter
--- OUTSIDE RECORDS SUMMARY | 2024-05-16 19:39 | XMS_ITS | Clinical Summary ---
Author Organization [facility] it Address [address] [place] [address] Care Team Providers Care Vehicle Body Sander Name Role Phone Unavailable Primary Care Provider [...]
--- OUTSIDE RECORDS SUMMARY | 2024-05-16 19:39 | XMS_ITS | Encounter Summary ---
Author Organization [facility] Address [address] [place] [address] Phone Care Team Providers Care Professor Of Chemical Engineering Name Role Phone Kenroy Freeman NIRALI Primary Care Provider [phone] Encounter Details Date Type Department Care Team (Late st Contact Info) Description 10/13/2021 Documentation Only [facility] [address] [place] [address] Jose Martin Mccall MD [address] [facility] [place] [address] Social History Tobacco Use Types [...] [facility] [address] [place] [address] Reginaldo Eagle MD [address] [facility] [place] [address] documented as of this encounter Visit Diagnoses Not on filedocumented in this encounter Care Teams Professor Of Chemical Engineering Relationship Specialty Start Date End Date Kenroy Freeman NP [facility] [place] [address] PCP - General Nurse Practitioner 11/15/19 documented as of this encounter
--- OUTSIDE RECORDS SUMMARY | 2024-05-16 19:39 | XMS_ITS | Encounter Summary ---
Author Organization [facility] Address [address] [place] [address] Phone Care Team Providers Care Water Taxi Operator Name Role Phone Kenroy Freeman NIRALI Primary Care Provider [phone] Encounter Details Date Type Department Care Team (Late st Contact Info) Description 08/08/2022 Documentation Only [facility] [address] [place] [address] Tonya Wilson PA [address] [place] [address] Social History Tobacco Use Types [...] Visit [facility] [address] [place] [address] Reginaldo Eagle MD [address] [facility] [address] [place] [address] documented as of this encounter Visit Diagnoses Not on filedocumented in this encounter Care Teams Water Taxi Operator Relationship Specialty Start Date End Date Kenroy Freeman NP [facility] [place] [address] PCP - General Nurse Practitioner 11/15/19 documented as of this encounter
--- OUTSIDE RECORDS SUMMARY | 2024-05-16 19:39 | XMS_ITS | Encounter Summary ---
Author Organization [facility] Address [address] [place] [address] Phone Care Team Providers Care Head Silverman Name Role Phone Kenroy Freeman NIRALI Primary Care Provider [phone] Encounter Details Date Type Department Care Team (Late st Contact Info) Description 03/20/2024 Documentation Only [facility] [address] [place] [address] Reanna Goyal [address] [place] [address] Social History Tobacco Use Types [...] Visit [facility] [address] [facility] [facility] [place] [place] [address] Reginaldo Eagle MD [address] [facility] [place] [address] documented as of this encounter Visit Diagnoses Not on filedocumented in this encounter Care Teams Head Silverman Relationship Specialty Start Date End Date Kenroy Freeman NP [facility] [place] [address] PCP - General Nurse Practitioner 11/15/19 documented as of this encounter
--- OUTSIDE RECORDS SUMMARY | 2024-05-16 19:39 | XMS_ITS | Encounter Summary ---
Author Organization [facility] Address [address] [place] [address] Phone Care Team Providers Care Personal Service Workers Name Role Phone Kenroy Freeman NIRALI Primary Care Provider [phone] Encounter Details Date Type Department Care Team (Late st Contact Info) Description 06/02/2023 Documentation Only [facility] [address] [place] [address] Reanna Goyal [address] [place] [address] Social History Tobacco Use Types [...] Visit [facility] [address] [place] [address] Reginaldo Eagle MD [address] [facility] [place] [address] documented as of this encounter Visit Diagnoses Not on filedocumented in this encounter Care Teams Personal Service Workers Relationship Specialty Start Date End Date Kenroy Freeman NP [facility] [place] [address] PCP - General Nurse Practitioner 11/15/19 documented as of this encounter
--- OUTSIDE RECORDS SUMMARY | 2024-05-16 19:39 | XMS_ITS | Encounter Summary ---
Author Organization [facility] Address [address] [place] [address] Phone Care Team Providers Care Tug Boat Engineer Name Role Phone Kenroy Freeman NIRALI Primary Care Provider [phone] Encounter Details Date Type Department Care Team (Late st Contact Info) Description 06/01/2023 Documentation Only [facility] [address] [place] [address] Deya Chowdhury [address] [place] [address] Social History Tobacco Use Types [...] Visit [facility] [address] [place] [address] Reginaldo Eagle MD [address] [place] [address] [place] [address] documented as of this encounter Visit Diagnoses Not on filedocumented in this encounter Care Teams Tug Boat Engineer Relationship Specialty Start Date End Date Kenroy Freeman [place] [address] PCP - General Nurse Practitioner 11/15/19 documented as of this encounter
--- OUTSIDE RECORDS SUMMARY | 2024-05-16 19:39 | XMS_ITS | Encounter Summary ---
Author Organization [facility] Address [address] [place] [address] Phone Care Team Providers Care Second Officer Name Role Phone Kenroy Freeman NIRALI Primary Care Provider [phone] Encounter Details Date Type Department Care Team (Late st Contact Info) Description 09/27/2021 Documentation Only [facility] [address] [place] [address] Jose [place] Mccall MD [address] [facility] [place] [address] Social History Tobacco Use Types [...] [facility] [address] [place] [address] Reginaldo Eagle MD [address] [place] [address] documented as of this encounter Visit Diagnoses Not on filedocumented in this encounter Care Teams Second Officer Relationship Specialty Start Date End Date Kenroy Freeman NP [facility] [place] [address] PCP - General Nurse Practitioner 11/15/19 documented as of this encounter
--- OUTSIDE RECORDS SUMMARY | 2024-05-16 19:40 | XMS_ITS | Clinical Summary ---
Author Organization [facility], Address [address] [place] [address] [place] [address] Phone Care Team Providers Care Color Room Attendant Name Role Phone Kenroy Freeman NP Primary Care Provider [phone] Allergies Active Allergy Reactions Criticality Noted Date [...] Visit [facility] [place], [address] [place] [address] Tonya Wilson PA Stage 3b chronic kidney disease (HCC) (Primary Dx); Essential hypertension; Hematuria, not otherwise specified 03/20/2024 Documentation Only [facility] [place], [address] [place] [address] Reanna Goyal from Last 3 Months Immunizations Name Administration Dates Next Due H1N1 Inj 02/25/2016 Influenza, MDCK, Quadrivalent, with preservative 01/31/2018 Family History Medical History Relation Comments Heart disease Father VA Stroke Father Hypertension Mother Cancer Sibling 1 [...] Visit [facility] [place], [address] [place] [address] Reginaldo Eagle MD [address] [facility] [place] [address] Health Maintenance Due Date Last Done [...] Influenza Vaccine (#1) 2023 01/31/[address] [place] [phone] [facility] DUAL SNP ([id number]) ODAL[place] [id number] [place] [address] [place] [phone] Care Teams Color Room Attendant Relationship Specialty Start Date End Date Kenroy Freeman NP [address] [place] [address] PCP - General Nurse Practitioner 11/15/19
--- OUTSIDE RECORDS SUMMARY | 2024-05-16 19:40 | XMS_ITS | Encounter Summary ---
Author Organization [facility] Address [address] [place] [address] Phone Care Team Providers Care Atlassian Administrator Name Role Phone Kenroy Freeman NIRALI Primary Care Provider [phone] Encounter Details Date Type Department Care Team (Late st Contact Info) Description 08/18/2021 Documentation Only [facility] [address] [address] Jose [place] Mccall MD [address] [facility] [place] [address] Social History Tobacco Use Types [...] Visit [facility] [address] [place] [address] Reginaldo Eagle MD [address] [facility] [place] [address] documented as of this encounter Visit Diagnoses Not on filedocumented in this encounter Care Teams Atlassian Administrator Relationship Specialty Start Date End Date Kenroy Freeman NP [facility] [place] [address] PCP - General Nurse Practitioner 11/15/19 documented as of this encounter
--- OUTSIDE RECORDS SUMMARY | 2024-05-16 19:40 | XMS_ITS | Encounter Summary ---
Author Organization [facility] Address [address] [place] [address] Phone Care Team Providers Care Airborne Electronics Analyst Name Role Phone Kenroy Freeman NIRALI Primary Care Provider [phone] Encounter Details Date Type Department Care Team (Late st Contact Info) Description 08/18/2021 Documentation Only [facility] [address] [place] [address] Jose [place] Mccall MD [address] [facility] [address] [facility] [place] [address] Social History Tobacco Use Types [...] Visit [facility] [address] [place] [address] Reginaldo Eagle MD [address] [place] [address] documented as of this encounter Visit Diagnoses Not on filedocumented in this encounter Care Teams Airborne Electronics Analyst Relationship Specialty Start Date End Date Kenroy Freeman NP [facility] [place] [address] PCP - General Nurse Practitioner 11/15/19 documented as of this encounter
--- OUTSIDE RECORDS SUMMARY | 2024-05-16 19:40 | XMS_ITS | Encounter Summary ---
Author Organization [facility] Address [address] [place] [address] Phone Care Team Providers Care Plant Security Guard Name Role Phone Kenroy Freeman NIRALI Primary Care Provider [phone] Encounter Details Date Type Department Care Team (Late st Contact Info) Description 05/13/2021 Documentation Only [facility] [address] [place] [address] Jose [place] Mccall MD [address] [facility] [place] [address] Social History Tobacco Use Types [...] Visit [facility] [address] [place] [address] Reginaldo Eagle MD [address] [facility] [place] [address] documented as of this encounter Visit Diagnoses Not on filedocumented in this encounter Care Teams Plant Security Guard Relationship Specialty Start Date End Date Kenroy Freeman NP [place] [address] PCP - General Nurse Practitioner 11/15/19 documented as of this encounter
--- OUTSIDE RECORDS SUMMARY | 2024-05-16 19:40 | XMS_ITS | Encounter Summary ---
Author Organization [facility] Address [address] [place] [address] Phone Care Team Providers Care Data Processing Consultant Name Role Phone Kenroy Freeman NP Primary Care Provider Encounter Details Date Type Department Care Team (Late st Contact Info) Description 03/01/2021 Documentation Only [facility] [address] [place] [address] Falguni Whitney PA Social History Tobacco Use [...] Visit [facility] [address] [place] [address] Reginaldo Eagle MD [address] [place] [address] Dr. [place] [address] documented as of this encounter Visit Diagnoses Not on filedocumented in this encounter Care Teams Data Processing Consultant Relationship Specialty Start Date End Date Kenroy Freeman NP [address] [place] [address] PCP - General Nurse Practitioner 11/15/19 documented as of this encounter
== END 2024-05-16 12:54 | disposition home or self-care (01) ==
LOC: HO.LNP 12:53
PROVIDERS: PCP Nurse Practitioner Family; Visit Provider Urology
DX: R31.29 Other microscopic hematuria (principal); E83.59 Other disorders of calcium metabolism; N29 Other disorders of kidney and ureter in diseases classified elsewhere; Z87.442 Personal history of urinary calculi
CPT/HCPCS: 81003; 88112; 99212

== ENCOUNTER 2024-05-27 11:32 | Outpatient (REF) | payer OTHER, SELFPAY ==
[2024-05-27 13:12] LABS: MANUAL DIFF FLAG NO
[2024-05-27 13:23] LABS: Basophils Percent Auto 0.5 % (0-2); Eosinophils Absolute Auto 0.2 X10*3/uL (0.0-0.4); Eosinophils Percent Auto 4.6 % (0-4); Hematocrit 41.3 % (37.0-47.0); Hemoglobin 13.2 g/dl (12.0-16.0); Imm Gran Abs Auto 0.01 X10*3/uL (0.00-0.03); Imm Gran Pct Auto 0.3 % (0.0-0.4); Lymphocytes Percent Auto 51.2 % (20-40); Mean Corpuscular Hemoglobin 27.3 pg (27.0-33.0); Mean Corpuscular Volume 85.5 fL (80.0-98.0); Mean Platelet Volume 10.8 fL (9.4-12.3); Monocytes Absolute Auto 0.3 X10*3/uL (0.1-1.2); Monocytes Percent Auto 6.7 % (2-11); Neutrophils Absolute Auto 1.4 x10*3/uL (2.0-8.3); Neutrophils Percent Auto 36.7 % (45-73); Platelet Count 245 X10*3/uL (160-400); Red Blood Count 4.83 X10*6/uL (4.20-5.50); Red Cell Distribution Width 13.9 % (11.0-16.0); White Blood Count 3.9 X10*3/uL (4.8-10.8)
[2024-05-27 14:04] LABS: Alanine Aminotransferase 20 U/L (0-31); Albumin Level 4.2 g/dL (3.5-5.0); Alkaline Phosphatase 148 U/L (39-117); Anion Gap 12 (12-20); Aspartate Amino Transferase 35 U/L (5-31); Bilirubin Total 0.6 mg/dL (0.0-1.0); Blood Urea Nitrogen 14 mg/dL (9-16); Calcium 9.2 mg/dL (8.4-10.2); Carbon Dioxide 26 mmol/L (22-29); Chloride 109 mmol/L (96-108); Estimated Glomerular Filt Rate 52; Glucose Random 82 mg/dL (60-115); Potassium 3.7 mmol/L (3.3-5.1); Sodium 143 mmol/L (135-145); Total Protein 8.1 g/dL (6.5-8.0)
[2024-05-27 14:42] LABS: Folate 5.7 ng/mL (> or = 4.0); Vitamin B12 > 2000 pg/mL (200-900)
== END 2024-05-27 11:33 | disposition home or self-care (01) ==
LOC: HO.HMGCLDS 11:32
PROVIDERS: PCP Nurse Practitioner Family; Visit Provider Nurse Practitioner Family
DX: E53.8 Deficiency of other specified B group vitamins (principal); Z79.899 Other long term (current) drug therapy
CPT/HCPCS: 36415; 80053; 82607; 82746; 85025; 96372; J3420

== ENCOUNTER 2024-05-27 11:32 | Outpatient (AMB) | payer OTHER, SELFPAY ==
--- NOTE | 2024-05-27 11:48 | AM.OFFVISNUR ---
Intake Visit Reasons: B-12 4 weeks f/up Intake Note: Pt arrived for monthly B-12 injection. Will go to the lab for blood work after injection Allergies amlodipine [AMLODIPINE] Allergy (Unknown, Verified 05/15/24 10:01) RASH cephalexin [From KEFLEX] Allergy (Unknown, Verified 05/15/24 10:01) RASH levofloxacin [From LEVAQUIN] Allergy (Unknown, Verified 05/15/24 10:01) RASH Office Meds cyanocobalamin (vitamin B-12) 1,000 mcg/mL injection solution Performing Provider: LOPEZ Hale Performing Location: [facility] Administered by: Nancy Vogel RN on 05/27/24 11:49 Dose Route Admin Location Dispensed Lot Number Expiration Date [facility] Box Toe Cutter 1,000 mcg IM Left deltoid 1 mL [id number] 10/15/25 38683-906-30 [employer]WSTER Comments: Pt supplied Assessment & Plan Assessment & Plan Orders: Orders AMB Vitamin B12 Injection Patient Supplied Today E53.8 - Deficiency of other specified B group vitamins Medications: New cyanocobalamin (vitamin B-12) 1,000 mcg IM ONCE 1 mL 0RF E53.8 - Deficiency of other specified B group vitamins Coding
== END 2024-05-27 12:01 | disposition home or self-care (01) ==
PROVIDERS: PCP Nurse Practitioner Family; Visit Provider Nurse Practitioner Family
DX: E53.8 Deficiency of other specified B group vitamins (principal)

== ENCOUNTER 2024-06-17 12:00 | Outpatient (AMB) | payer OTHER, SELFPAY ==
--- NOTE | 2024-06-17 12:16 | MHC.OFFVIS ---
Vital Signs 06/17/24 12:17 Height 5 ft 1 in Weight 226 lb BMI 42.7 Intake Visit Reasons: Colposcopy Operations Research Director: Operations Research Director Present (Maggie) Allergies amlodipine [AMLODIPINE] Allergy (Unknown, Verified 06/17/24 12:17) RASH cephalexin [From KEFLEX] Allergy (Unknown, Verified 06/17/24 12:17) RASH levofloxacin [From LEVAQUIN] Allergy (Unknown, Verified 06/17/24 12:17) RASH HPI Comments Details: Presenting for abnormal Pap smear showing ascus/HPV high-risk positive, HPV 16/18 negative COUNTS INCLUDE 234 BEDS AT [facility] Medical History 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 Anxiety Chronic kidney disease, stage 2 (mild) Morbid obesity Other and unspecified hyperlipidemia Essential hypertension Atherosclerotic cardiovascular disease Pituitary microadenoma Vitamin D deficiency Graves disease Post-surgical hypothyroidism Osteoarthritis GERD (gastroesophageal reflux disease) Leukopenia Cervical radiculitis Lumbar radiculopathy Pernicious anemia Obstructive sleep apnea Raynaud's phenomenon Pituitary microadenoma 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 Mother Stroke Sister Diabetes mellitus Maternal Grandmother Unknown family medical history Brother Cancer Sister No problems noted. Brother No problems noted. Daughter Healthy female Social History Housing: Apartment Are you a primary care transition manager to a significant other at home: No Do you presently have visiting nurse or other home services: No Alcohol intake: current Alcohol intake frequency: holidays/special occasions only Patient Tobacco Use Status: Never used Tobacco e-Cigarette/Vaping Use: Never Used Second Hand Smoke Exposure: No Current occupational status: disabled Cognitive needs: No Hearing needs: No Vision needs: No Female Reproductive History Menstrual Age of Menarche: 13 Review of Systems Const All systems reviewed & are unremarkable except as noted in HPI and below Reports as per HPI and Reports no additional complaints GI Reports no additional complaints Reports no additional complaints Physical Exam Vital Signs: BMI result Body Mass Index 42.7 Office Procedures Colposcopy Colposcopy: Pre-Procedure Counseling: Before beginning the procedure, I conducted comprehensive counseling with the patient. We thoroughly discussed the procedure itself, including its details, alternatives, and all associated risks. This included but not limited to the following complications such as bleeding, infection, and injury to the vagina, bladder, and vessels, as well as the potential need for transfusion with all its associated risks. Subsequently, the patient sign the consent. Pap smear result: Ascus HPV positive, HPV 16/18 negative Procedure: During the procedure, the following steps were performed: A speculum was inserted, and acetic acid was applied. Colposcopy was conducted, allowing visualization of the transformation zone. Acetowhite lesions were identified at the 5+ 12 o'clock position. Cervical biopsies were obtained from the 5+ 12 o'clock position, followed by an endocervical curettage (ECC). Minimal tissue from endocervix were access because of cervical stenosis due to previous LEEP Vaginoscopy of the upper vagina revealed no evidence of aceto-white lesions. Hemostasis was achieved using Monsel solution, and the patient tolerated the procedure well. Post-Procedure Instructions: The patient was advised to promptly contact the office or the after hours answering service or go to the emergency room if experiencing a temperature exceeding 100.4?F, abdominal pain, nausea/vomiting, or bleeding. Additionally, the patient was instructed to abstain from vaginal intercourse and bathtub use. The patient confirmed understanding of these instructions. Discharge Instructions: The patient was instructed to schedule a follow-up appointment in 2 weeks for further evaluation and management. Please note that this note was generated using a voice recognition program, and errors may have occurred during tree trimming supervisor. 25101-Iqcolkedi of cervix including upper vagina with biopsy and ECC Procedure code (CPT) selection complete Assessment & Plan Assessment & Plan (1) ASCUS with positive high risk HPV cervical: Code(s): R87.610 - Atypical squamous cells of undetermined significance on cytologic smear of cervix (ASC-US); R87.810 - Cervical high risk human papillomavirus (HPV) DNA test positive Category: Medical Plan: Discussed with the patient the result of her abnormal pap, its significance, risk of progression, persistence, and regression. the false positive/negative rate of a Pap smear as a screening test in detecting cervical cancer and the indication for a diagnostic test -colposcopy, biopsy, endocervical curettage. The patient verbalized understanding and agreed with the plan, all questions answered. Colpo/biopsy/ECC done, see procedure note Orders: Orders AMB Colposcopy Today R87.610 - Atypical squamous cells of undetermined significance on cytologic smear of cervix (ASC-US), R87.810 - Cervical high risk human papillomavirus (HPV) DNA test positive Coding Level of Care Code Procedure Only Diagnoses ASCUS with positive high risk HPV cervical R87.610; R87.810 CPT Codes Colposcopy - CPT: 19402-Egbhfuljn of cervix including upper vagina with biopsy and ECC ([id number])
[2024-06-17 12:17] VITALS: BMI 42.7
--- OUTSIDE RECORDS SUMMARY | 2024-06-17 14:08 | XMS_ITS | Encounter Summary ---
Author Organization [facility] Address [address] [place] [address] Phone Care Team Providers Care Collar Worker Name Role Phone Kenroy Freeman NIRALI Primary Care Provider [phone] Encounter Details Date Type Department Care Team (Late st Contact Info) Description 08/18/2022 Documentation Only [facility] [address] [place] [address] [place], [place] [address] [place] [address] Social History Tobacco Use Types [...] Visit [facility] [address] [place] [address] Reginaldo Eagle MD [address] [place] [address] documented as of this encounter Visit Diagnoses Not on filedocumented in this encounter Care Teams Collar Worker Relationship Specialty Start Date End Date Kenroy Freeman NP [facility] [place] [address] PCP - General Nurse Practitioner 11/15/19 documented as of this encounter
--- OUTSIDE RECORDS SUMMARY | 2024-06-17 14:08 | XMS_ITS | Clinical Summary ---
Author Organization [facility] Address [address] [place] [address] Care Team Providers Care Excel Expert Name Role Phone Unavailable Primary Care Provider Unavailabl e Social History Tobacco Use Types Packs/Day Years Used Date Smoking Tobacco: Never Assessed Comments Unknown Sex and Gender Information Value Date Recorded Sex Assigned at Not on file Legal Sex Female 12:34 AM EST Gender Identity Not on file Sexual Orientation Not on file Plan of Treatment Health Maintenance Due Date Last Done Comments Breast Cancer Screening 1965 DTaP,Tdap,and Td Vaccines (1 - Tdap) 1984 Hepatitis B Vaccines (1 of 3 - 19+ 3-dose series) 1984 Cervical Cancer Screening: P ap Smear 1986 Pneumococcal Vaccine: 50+ Ye ars (1 of 1 - PCV) 11/12/2015 Zoster Vaccines (1 of 2) 11/12/2015 COVID-19 Vaccine (2023-2 5 season) 2023 Influenza Vaccine (#1) 2023 [...] patient's age to complete this topic Meningococcal B Vacine Aged Out No lo nger eligible based on patient's age to complete [...]
--- OUTSIDE RECORDS SUMMARY | 2024-06-17 14:09 | XMS_ITS | Encounter Summary ---
Author Organization [facility] Address [address] [place] [address] Phone Care Team Providers Care Supercharger Repair Supervisor Name Role Phone Kenroy Freeman NP Primary Care Provider [phone] Encounter Details Date Type Department Care Team (Late st Contact Info) Description 08/08/2022 Documentation Only [facility] [address] [place] [phone] Tonya Wilson PA Social History Tobacco Use Types Packs/Day [...] [facility] [address] [place] [phone] Reginaldo Eagle MD [address] [place] [address] [place] [phone] documented as of this encounter Visit Diagnoses Not on filedocumented in this encounter Care Teams Supercharger Repair Supervisor Relationship Specialty Start Date End Date Kenroy Freeman NP [address] [place] [address] PCP - General Nurse Practitioner 11/15/19 documented as of this encounter
--- OUTSIDE RECORDS SUMMARY | 2024-06-17 14:09 | XMS_ITS | Encounter Summary ---
Author Organization [facility] Address [address] [place] [address] Phone Care Team Providers Care Director Presales Name Role Phone Kenroy Freeman NP Primary Care Provider [phone] Encounter Details Date Type Department Care Team (Late st Contact Info) Description 09/19/2022 Documentation Only [facility] [address] [place] [phone] Tonya Wilson PA Social History Tobacco Use [...] Visit [facility] [address] [place] [phone] Reginaldo Eagle MD [address] [place] [address] [place] [phone] documented as of this encounter Visit Diagnoses Not on filedocumented in this encounter Care Teams Director Presales Relationship Specialty Start Date End Date Kenroy Freeman NP [address] [place] [address] PCP - General Nurse Practitioner 11/15/19 documented as of this encounter
--- OUTSIDE RECORDS SUMMARY | 2024-06-17 14:09 | XMS_ITS | Encounter Summary ---
Author Organization [facility] Address [address] [place] [address] Phone Care Team Providers Care Training Officer Name Role Phone Kenroy Freeman NIRALI Primary Care Provider [phone] Encounter Details Date Type Department Care Team (Late st Contact Info) Description 06/01/2023 Documentation Only [facility] [address] [address] Deya Chowdhury [address] [place] [address] Social History Tobacco Use Types [...] Visit [facility] [address] [place] [address] Reginaldo Eagle MD [address] [place] [address] [place] [address] documented as of this encounter Visit Diagnoses Not on filedocumented in this encounter Care Teams Training Officer Relationship Specialty Start Date End Date Kenroy Freeman NP [facility] [place] [address] PCP - General Nurse Practitioner 11/15/19 documented as of this encounter
--- OUTSIDE RECORDS SUMMARY | 2024-06-17 14:09 | XMS_ITS | Encounter Summary ---
Author Organization [facility] Address [address] [place] [address] Phone Care Team Providers Care Implementation Engineer Name Role Phone Kenroy Freeman NIRALI Primary Care Provider [phone] Encounter Details Date Type Department Care Team (Late st Contact Info) Description 09/27/2021 Documentation Only [facility] [address] [place] [address] Jose Martin Mccall MD [address] [place] [address] Social History Tobacco Use Types [...] Visit [facility] [address] [address] Reginaldo Eagle MD [address] [place] [address] documented as of this encounter Visit Diagnoses Not on filedocumented in this encounter Care Teams Implementation Engineer Relationship Specialty Start Date End Date Kenroy Freeman NP [facility] [place] [address] PCP - General Nurse Practitioner 11/15/19 documented as of this encounter
--- OUTSIDE RECORDS SUMMARY | 2024-06-17 14:09 | XMS_ITS | Patient Health Record ---
Author Organization [facility] Address [address] [place] [address] Care Team Providers Care Trucker Hand Name Role Phone Kenroy Sánchez Primary Care Provider Unav ailable Black, Cherise Unavailable [phone] Allergies Allergen (clinical drug ingredient) Drug/Non Drug [...] Status Risk Notes Problem Acquired hallux valgus (21522549) Hallux valgus (acquired), left foot (M20.12) Active confirmed Problem Acquired hallux valgus (02838578) Hallux valgus (acquired), right foot (M20.11) Active confirmed Problem [id number] 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) Active confirmed Problem [id number] Pronation deformity of right foot (M21.6X1) Active confirmed Plan Of Treatment No Information Insurance Providers Payer Name Payer Address Payer Phone Subscriber Number Group Number Insured Name Patient Relationship to Insured Coverage Start Date Coverage End Date [facility] [employer] Claims [address] [place] [id number] Miriam Chacon Self - patient is the insured Medical (General) History Medical History History ICD Code Anxiety Depression High blood pressure raynauds disease Sciatica thyroid HIV Surgical History Surgery Date(Month/Year) tubes in ears tubal ligation 2000 shoulder surgery
--- OUTSIDE RECORDS SUMMARY | 2024-06-17 14:09 | XMS_ITS | Data Portability ---
Author Organization [employer] [facility] [place] [facility] Address [address] [place] [address] Care Team Providers Care Fire Assistant Name Role Phone KATHY TEIXEIRA Primary Care Provider HIM CCA OTHER Assessment Encounter Date Assessment Date Assessment LastModified by Organization Details LastModified Time 07/27/2023 07/27/2023 As noted, we were called to see this patient regarding concerns of weakness. Evaluation in the field was performed by my cleat thrower colleague, as noted above, I provided real-time [...] Time Details Appointments None recorded. Lab rapid SARS CoV 2 Ag, QL IA, respiratory specimen 2023 024 [place] [facility], [address] [place] [address], [phone], 08/15/202 4 20:47:12 rapid flu (A+B) 2023 024 [place] [facility], [address] [place] [address], [phone], 4 20:47:49 culture, urine 2023 024 [email or web address] [facility], [address], [place], [place], [address], 09:51:23 urinalysis, dipstick 2023 024 [facility] [address] [place] [address], [phone], 15:29:52 rapid flu (A+B) 2021 022 [email or web address] [facility], [address] [place] [address], [phone], 2 21:38:31 rapid SARS CoV 2 Ag, QL IA, respiratory specimen 2021 022 [email or web address] [facility], [address] [place] [address], [phone], 2 21:38:31 rapid strep group A, throat 2021 022 [email or web address] [facility], [address] [place] [address], [phone], 2 21:38:31 Referral None recorded. Procedures None recorded. Surgeries None recorded. Imaging None recorded. Medication Orders Paxlovid 300 mg (150 mg x 2)-100 mg tablets in a dose pack 2023 024 [id number], [address] [place], [place], [phone], 14:35:21 Bactrim DS 800 mg-160 mg tablet 2023 024 [place] [id number], [address] [place], [place], [phone], 4 13:03:33 potassium chloride ER 20 mEq tablet,exte nded release 2021 022 [email or web address] Not available 21:38:31 Patient TargetsNo targets recorded. Patient InstructionsNo instructions [...] ts at testd irect ory.q uestd iagno [employer] .com Not Available [facility] [place] [facility] [address], [place], [address], 10/23/2023 15:48:24 10/23/19 24 10/23/2023 SPECI MEN [...] s as requi red by the Ernesto pike of [facility] (CAP) . Not Available [facility] [place] [facility] [address], [place], [address], 10/23/2023 15:48:25 10/23/19 24 10/23/2023 PATIE NT ID APPRO EDISON TIQ DOCUM ENTAT ION comment Ident ifica tion of test requi sitio n and/o r speci men(s ) was quest ionab le. The below named indiv idual provi ded this butron ed patie nt ident ifica tion. Not Available [facility] [place] [facility] [address] [place], [place], [address], 10/23/2023 15:48:25 10/23/19 24 10/23/2023 PATIE NT ID APPRO EDISON TIQ DOCUM ENTAT ION contact FAX Not Available [facility] [place] [facility] [address] [place], [place], [address], 10/23/2023 15:48:25 10/23/19 24 10/23/2023 PATIE NT ID APPRO EDISON TIQ DOCUM ENTAT ION tests affected 395 Not Available [facility] [place] [facility] [address] [place], [place], [address], 10/23/2023 15:48:25 10/23/19 24 10/23/2023 CULTU RE, URINE , ROUTI NE culture, urine, routine SEE NOTE CULTU RE, URINE , ROUTI NE Micro Numbe r: [id number] Test Statu s: Final Speci men [...] [facility] t [facility] Faxed to: [phone] on: 10/19 18:29 NO COLLE CTION DATE RECEI ANJANA. WE HAVE USED THE DATE THE SPECI MEN WAS RECEI ANJANA BY THIS LABOR ATORY THE COLLE CTION DATE. IF THIS IS INCOR RECT, PLEAS E CONTA CT CLIEN T SERVI JUANY. PHONE NUMBE R: [phone] Not Available [facility] [place] [facility] [address], [place], [address], 10/23/2023 15:48:26 01/14/20 22 01/13/2022 rapid strep group A, throa t Strep negati ve Not Available [facility] ed [address] [place] [address], [phone], 01/13/2022 21:37:04 01/14/20 22 01/13/2022 rapid SARS CoV 2 Ag, QL IA, respi rator y speci men rapid SARS CoV 2 Ag, QL IA, respiratory specimen negati ve Not Available [facility] ed [address] [place] [address], [address], 01/13/2022 21:37:00 01/14/20 22 01/13/2022 rapid flu (A+B) Flu negati ve Not Available [facility] ed [address] [place] [address], [address], 01/13/2022 21:36:59 Result Notes None recorded. Medical [...] Not available Not available Not available 02/13/2024 83492 RxNorm Not Available [facility] - production 4 [...] ONCE DIRECTED BY [facility] active Not Available Not Available No t [...] Updated DateTime 4 18 /min 96.9 [degF] 590771. 2 g 100 % 100 % 70 /min 172 mm[Hg] 104 mm[Hg] Not Available [employer] 4 18:07:31 Date Recorded Respiratory rate Oxygen saturation Oxygen saturation in Arterial blood by Pulse oximetry Heart rate Body temperature Systolic blood pressure Diastolic blood pressure Provider Name and Address Organization Details Last Updated DateTime 4 18 /min 99 % 99 % 82 /min 97.4 [degF] 132 mm[Hg] 82 mm[Hg] Not Available [employer] 4 12:54:21 Date Recorded Oxygen saturation Oxygen saturation in Arterial blood by Pulse oximetry Heart rate Respiratory rate Body temperature Systolic blood pressure Diastolic blood pressure Provider Name and Address Organization Details Last Updated DateTime 4 95 % 95 % 110 /min 20 /min 98.1 [degF] 130 mm[Hg] 90 mm[Hg] Not Available [employer] 4 14:16:32 Date Recorded Oxygen saturation Oxygen [...] Updated DateTime 2 96 % 96 % 26826.2 4 g 154.94 cm 97.4 [degF] 20 /min 130 /min 97.4 [degF] 96 % 96 % 130 /min 154.94 cm 89915.2 4 g 20 /min 128 mm[Hg] 84 mm[Hg] 128 mm[Hg] 84 mm[Hg] Not Available [employer] 2 17:44:08 Social History None recorded. Functional [...] [id number] Ray Goyal MD [facility] [address] [place] [phone] 01/13/2022 15:51:31 01/17/2022 16:23:27 Cough 77810893 R05.9 COVID, Flu, strep negative. No s/s of pneumonia or asthma exacerbati on. O2 sat normal. Supportive care. Tachycardia 3761003 R00. [address]-T wave changes. HR came down to 103 Hypokalemia 70234994 E87 .6 [place] 40 [place] [id number] Kiki Martinez MD [facility] [address] [place] [phone] 07/27/2023 18:07:29 07/28/2023 12:52:04 Weakness present 459074128 M62.81 [id number] Ray Goyal MD [facility] [address] [place] [phone] 10/14/2023 12:50:48 10/15/2023 21:01:10 Dysuria 51232746 R30.0 Recently treated with Macrobid (treated five days prior), now with worsening pain. Amenable to trying antibiotic prior to obtaining culture. Discussed red flag signs for which to seek higher level of care. [id number] Ray Goyal MD [facility] [address] [place] [phone] 11/30/2023 14:02:19 12/01/2023 13:01:16 COVID-19 [id number] U07.1 COVID positive. Flu negative. s/p vaccinatio [...] Lala Member ID Guarantor Name 01/13/2022 1 [facility] - DOS PRIOR TO 2022 - DUAL ELIGIBLE (MEDICARE REPLACEMENT/ADV ANTAGE - HMO) Miriam Oswaldo [id number] Miriam Gallardo Oswaldo 07/27/2023 1 [facility] - DOS ON OR AFTER 2022 - DUAL ELIGIBLE - NURSING HOME OPTIONS AND ONE CARE (MEDICARE REPLACEMENT/ADV ANTAGE - HMO) Miriam Oswaldo [id number] Miriam Lillyshahzad 10/14/2023 1 [facility] - DOS ON OR AFTER 2022 - DUAL ELIGIBLE - NURSING HOME OPTIONS AND ONE CARE (MEDICARE REPLACEMENT/ADV ANTAGE - HMO) Miriam Lancasteranatoly [id number] Miriam Gallardo Oswaldo 11/30/2023 1 [facility] - DOS ON OR AFTER 2022 - DUAL ELIGIBLE - NURSING HOME OPTIONS AND ONE CARE (MEDICARE REPLACEMENT/ADV ANTAGE - HMO) Miriam Lancasteranatoly [id number] Miriam Gallardo Oswaldo Notes Date Note Type Note Provider Name and Address Organization Details Recorded Time 01/13/2022 text/html HPI: Referral taken over the phone by members careers adviser. Member with cold like symptoms since Monday. Member c/o cough, congestion, fatigued and unable to sleep. Home covid test negative. CM unsure if member has phlegm, fever/chills or any hx of asthma/copd. Per CM member safe and stable to wait for an [facility] visit. ................... ................... ................... ................... ................... ................... ................... ........ CRC Nursing Assessment: Comments: CRC RN did not require any additional information to process this visit. ................... ................... ................... ................... ................... ................... ................... ........ Pneumatic Riveter Note: Sent to a call for a [...] sample obtained; Urine dip: Results uploaded to [employer]; [facility] orders 12 lead ECG, Rapid Strep test, and POC CMP; Rapid strep: neg; blood sample obtained via venous blood draw; CMP results: potassium low; ECG results: uploaded to [employer]. [facility] orders Potassium 40meq PO; Potassium administered. Red flags discussed. Pt has no further questions. ................... ................... ................... ................... ................... ................... ................... ........ Disposition: Fulfilled Ray Goyal MD [address] [facility],[address], [place], [address], [place] 01/13/2022 21:38:55 07/27/2023 text/html CRC Nurse Triage Notes (Loulou Pimentel): Chief Complaints: Weakness/Lethargy PMH: Hypertension, Other Comments: PMH: Hypothyroid, HIV Member was recently seen in the ED for bradycardia in the 50's. No interventions taken related to bradycardia. Member. Feeling weakness and fatigue over the last 2 days. Denies chest pain, shortness of breath or dizziness. Prescribed metoprolol daily for HTN. Unable reach Mop Machine Operator today. HR 50's today. Reviewed RED flags. Instructed member to call 911 for worsening signs/symptoms. ................... ................... ................... ................... ................... ................... ................... ........ Pneumatic Riveter Note From Renato Bangura: Pt co fatigue [...] RX metoprolol . Lungs clear no edema. [facility] contacted and advised pt to follow up with network control supervisor and pcp. Pt education on signs indicating the ER. ................... ................... ................... ................... ................... ................... ................... ........ Disposition: Fulfilled Kiki Martinez MD [address] [facility],[address], [place], [address], [place] 07/27/2023 18:47:44 10/14/2023 text/html CRC Nurse Triage [...] fever/chills. Member would like to be evaluated. Pneumatic Riveter POC Test Results from Deyanira Guy Urine [...] ................... ................... ................... ................... ................... ................... ........ Pneumatic Riveter Note From Deyanira Guy: Pt with two [...] up with pcp Monday, red flags reviewed. Pneumatic Riveter Allergies: Cephalexin, Levofloxacin ................... ................... ................... ................... ................... ................... ................... ........ Disposition: Fulfilled Ray Goyal MD [address] [place] [address],[address], [place], [address], [place] 10/14/2023 13:34:41 11/30/2023 text/html CRC Nurse Triage Notes (Loulou Pimentel): Reason For Request: Pt reporting cold like symptoms > unable to eat in 2 days>issues with her lower back>Legs and arms on the LEFT side are going numb Chief Complaints: Cough, Weakness/Lethargy, Pain PMH: Hypertension, HIV Allergies: Cephalexin, Levofloxacin Comments: Parimutuel Clerk verified the member's name//address and phone number. Cold symptoms since Monday. + cough, rhinnorhea, and fatigue. Denies fever. Exposed to boyfriend who was sick. Decreased appetite x2 days. Drinking fluids. c/o lower abdominal pain and increased bowel movement frequency. No diarrhea. Education provided on the response time and the member was advised to monitor reported s/s and seek emergency treatment if needed. Pneumatic Riveter Organization Information for [facility] Business Legal Name: [employer]? Address: [address] [place] [address], Case Specialist: Mark Velazquez MD [facility] No.: [id number] Pneumatic Riveter POC Test Results from [facility]in[facility] Sutton Rapid COVID antigen (15:27:55) COVID: + Rapid influenza antigen (15:27:56) Flu: - Urine Dipstick (15:36:39) Urine leukocytes: NR Urine nitrites: NR Urine urobilinogen: NR Urine protein: NR Urine pH: NR Urine blood: NR Urine specific gravity: NR Urine ketones: NR Urine bilirubin: NR Urine glucose: NR ................... ................... ................... ................... ................... ................... ................... ........ Pneumatic Riveter Note From Obinna Sutton: Dispatched to the [...] -sob -dizziness -nvd -abd pain -blurred vision. [facility] contacted and ordered flu and covid test with U/A. Covid test was positive negative on flu and urine showed positive ketones and blood. [facility] ordered the patient Paxlovid to her pharmacy [...] ........ Disposition: Fulfilled Ray Goyal MD [address] [facility],[address], [place], [address], [employer] 11/30/2023 16:52:34 OBGyn Episode No OBEpisode recorded.
--- OUTSIDE RECORDS SUMMARY | 2024-06-17 14:09 | XMS_ITS | Encounter Summary ---
Author Organization [facility] Address [address] [place] [address] Phone Care Team Providers Care Structural Steel Worker Helper Name Role Phone Kenroy Freeman NIRALI Primary Care Provider [phone] Encounter Details Date Type Department Care Team (Late st Contact Info) Description 05/13/2021 Documentation Only [facility] [address] [place] [address] Jose Martin Mccall MD [address] [place] [address] Social History Tobacco Use Types [...] Visit [facility] [address] [place] [address] Reginaldo aEgle MD [address] [place] [address] documented as of this encounter Visit Diagnoses Not on filedocumented in this encounter Care Teams Structural Steel Worker Helper Relationship Specialty Start Date End Date Kenroy Freeman NP [facility] [place] [address] PCP - General Nurse Practitioner 11/15/19 documented as of this encounter
--- OUTSIDE RECORDS SUMMARY | 2024-06-17 14:09 | XMS_ITS | Encounter Summary ---
Author Organization [facility] Address [address] [place] [address] Phone Care Team Providers Care Manager Mining Name Role Phone Kenroy Freeman NIRALI Primary Care Provider [phone] Encounter Details Date Type Department Care Team (Late st Contact Info) Description 06/02/2023 Documentation Only [facility] [address] [place] [address] Reanna Goyal [address] [place] [address] Social History Tobacco Use Types [...] Visit [facility] [address] [place] [address] Reginaldo Eagle MD [address] [place] [address] documented as of this encounter Visit Diagnoses Not on filedocumented in this encounter Care Teams Manager Mining Relationship Specialty Start Date End Date Kenroy Freeman NP [facility] [place] [place] [address] PCP - General Nurse Practitioner 11/15/19 documented as of this encounter
--- OUTSIDE RECORDS SUMMARY | 2024-06-17 14:09 | XMS_ITS | Clinical Summary ---
Author Organization [facility], Address [address] [place] [address] [place] [address] Phone Care Team Providers Care Water Engineer Name Role Phone Kenroy Freeman NP Primary Care Provider [phone] Allergies Active Allergy Reactions Criticality Noted Date [...] Visit [facility] [place], [address] [place] [address] Tonya Wilson PA Stage 3b chronic kidney disease (HCC) (Primary Dx); Essential hypertension; Hematuria, not otherwise specified 03/20/2024 Documentation Only [facility] [place], [address] [place] [address] Reanna Goyal from Last 3 Months Immunizations Name Administration Dates Next Due H1N1 Inj 02/25/2016 Influenza, MDCK, Quadrivalent, with preservative 01/31/2018 Family History Medical History Relation Comments Heart disease Father [place] Stroke Father Hypertension Mother Cancer Sibling 1 [...] Visit [facility] [place], [address] [place] [address] Reginaldo Eagle MD [address] [place] [address] Health Maintenance Due Date Last Done [...] Influenza Vaccine (#1) 2023 01/31/[address] [place] [phone] [facility] DUAL SNP ([id number]) ODALIS CACERES [id number] [place] [address] [address] [place] [id number] Care Teams Water Engineer Relationship Specialty Start Date End Date Kenroy Freeamn NP [address] [place] [address] PCP - General Nurse Practitioner 11/15/19
--- OUTSIDE RECORDS SUMMARY | 2024-06-17 14:09 | XMS_ITS | Encounter Summary ---
Author Organization [facility] Address [address] [place] [address] Phone Care Team Providers Care Acid Painter Name Role Phone Kenroy Freeman NIRALI Primary Care Provider [phone] Encounter Details Date Type Department Care Team (Late st Contact Info) Description 10/13/2021 Documentation Only [facility] [address] [place] [address] Jose Martin Mccall MD [address] [place] [address] Social History Tobacco Use Types [...] [facility] [address] [place] [address] Reginaldo Eagle MD [address] [place] [address] documented as of this encounter Visit Diagnoses Not on filedocumented in this encounter Care Teams Acid Painter Relationship Specialty Start Date End Date Kenroy Freeman [place] [address] PCP - General Nurse Practitioner 11/15/19 documented as of this encounter
--- OUTSIDE RECORDS SUMMARY | 2024-06-17 14:09 | XMS_ITS | Encounter Summary ---
Author Organization [facility] Address [address] [place] [address] Phone Care Team Providers Care Fitter'S Assistant Name Role Phone Kenroy Freeman NIRALI Primary Care Provider [phone] Encounter Details Date Type Department Care Team (Late st Contact Info) Description 03/20/2024 Documentation Only [facility] [address] [place] [address] Reanna Goyal [address] [place] [address] Social History Tobacco Use Types [...] [facility] [address] [place] [address] Reginaldo Eagle MD [address] [address] [place] [address] documented as of this encounter Visit Diagnoses Not on filedocumented in this encounter Care Teams Fitter'S Assistant Relationship Specialty Start Date End Date Kenroy Freeman NP [facility] [place] [address] PCP - General Nurse Practitioner 11/15/19 documented as of this encounter
--- OUTSIDE RECORDS SUMMARY | 2024-06-17 14:09 | XMS_ITS | Encounter Summary ---
Author Organization [facility] Address [address] [place] [address] Phone Care Team Providers Care Mathematics Technician Name Role Phone Kenroy Freeman NP Primary Care Provider Encounter Details Date Type Department Care Team (Late st Contact Info) Description 03/01/2021 Documentation Only [facility] [address] [place] [address] Falguni Whitney PA Social History Tobacco Use [...] Visit [facility] [address] [place] [address] Reginaldo Eagle MD [address] [place] [address] [place] [address] documented as of this encounter Visit Diagnoses Not on filedocumented in this encounter Care Teams Mathematics Technician Relationship Specialty Start Date End Date Kenory Freeman NP [address] [place] [address] PCP - General Nurse Practitioner 11/15/19 documented as of this encounter
--- OUTSIDE RECORDS SUMMARY | 2024-06-17 14:09 | XMS_ITS | Encounter Summary ---
Author Organization [facility] Address [address] [place] [address] Phone Care Team Providers Care Terrapin Fisher Name Role Phone Kenroy Freeman NIRALI Primary Care Provider [phone] Encounter Details Date Type Department Care Team (Late st Contact Info) Description 08/18/2021 Documentation Only [facility] [address] [address] Jose Martin Mccall MD [address] [facility] [address] [place] [address] Social History Tobacco Use Types [...] Visit [facility] [address] [address] Reginaldo Eagle MD [address] [facility] [place] [address] documented as of this encounter Visit Diagnoses Not on filedocumented in this encounter Care Teams Terrapin Fisher Relationship Specialty Start Date End Date Kenroy Freeman NP [facility] [address] PCP - General Nurse Practitioner 11/15/19 documented as of this encounter
--- OUTSIDE RECORDS SUMMARY | 2024-06-17 14:09 | XMS_ITS | Encounter Summary ---
Author Organization [facility] Address [address] [place] [address] Phone Care Team Providers Care Point Of Care Technician Name Role Phone Kenroy Freeman NIRALI Primary Care Provider [phone] Encounter Details Date Type Department Care Team (Late st Contact Info) Description 08/18/2021 Documentation Only [facility] [address] [address] Jose Martin Mccall MD [address] [facility] [address] [place] [address] Social History Tobacco Use Types [...] Visit [facility] [address] [address] Reginaldo Eagle MD [address] [place] [address] documented as of this encounter Visit Diagnoses Not on filedocumented in this encounter Care Teams Point Of Care Technician Relationship Specialty Start Date End Date Kenroy Freeman NP [facility] [place] [address] PCP - General Nurse Practitioner 11/15/19 documented as of this encounter
== END 2024-06-17 13:03 | disposition home or self-care (01) ==
LOC: HO.HWS 12:00
PROVIDERS: PCP Nurse Practitioner Family; Visit Provider Obstetrics & Gynecology
DX: R87.610 Atypical squamous cells of undetermined significance on cytologic smear of cervix (ASC-US) (principal); R87.810 Cervical high risk human papillomavirus (HPV) DNA test positive
CPT/HCPCS: 57454

== ENCOUNTER 2024-06-17 12:00 | Outpatient (REF) | payer OTHER, SELFPAY ==
--- OUTSIDE RECORDS SUMMARY | 2024-06-17 14:53 | XMS_ITS | Encounter Summary ---
Author Organization [facility] Address [address] [place] [address] Phone Care Team Providers Care Director Hospice Operations Name Role Phone Kenroy Freeman NIRALI Primary Care Provider [phone] Encounter Details Date Type Department Care Team (Late st Contact Info) Description 03/20/2024 Documentation Only [facility] [address] [place] [address] Reanna Goyal [address] [place] [address] Social History Tobacco Use Types [...] Visit [facility] [address] [address] Reginaldo Eagle MD [address] [place] [address] documented as of this encounter Visit Diagnoses Not on filedocumented in this encounter Care Teams Director Hospice Operations Relationship Specialty Start Date End Date Kenroy Freeman NP [facility] [place] [address] PCP - General Nurse Practitioner 11/15/19 documented as of this encounter
--- OUTSIDE RECORDS SUMMARY | 2024-06-17 14:53 | XMS_ITS | Encounter Summary ---
Author Organization [facility] Address [address] [place] [address] Phone Care Team Providers Care Cover Cutter Machine Name Role Phone Kenroy Freeman NP Primary Care Provider [phone] Encounter Details Date Type Department Care Team (Late st Contact Info) Description 08/08/2022 Documentation Only [facility] [address] [place] [address] Tonya Wilson PA Social History Tobacco Use [...] [facility] [address] [place] [address] Reginaldo Eagle MD [address] [place] [address] [place] [phone] documented as of this encounter Visit Diagnoses Not on filedocumented in this encounter Care Teams Cover Cutter Machine Relationship Specialty Start Date End Date Kenroy Freeman NP [address] [place] [address] PCP - General Nurse Practitioner 11/15/19 documented as of this encounter
--- OUTSIDE RECORDS SUMMARY | 2024-06-17 14:53 | XMS_ITS | Encounter Summary ---
Author Organization [facility] Address [address] [place] [address] Phone Care Team Providers Care Case Management Associate Name Role Phone Kenroy Freeman NIRALI Primary Care Provider Encounter Details Date Type Department Care Team (Late st Contact Info) Description 09/27/2021 Documentation Only [facility] [address] [place] [address] Jose Martin Mccall MD [address] [place] [address] Social History Tobacco Use Types [...] Visit [facility] [address] [place] [address] Reginaldo Eagle MD [address] [facility] [address] [place] [address] documented as of this encounter Visit Diagnoses Not on filedocumented in this encounter Care Teams Case Management Associate Relationship Specialty Start Date End Date Kenroy Freeman [place] [address] PCP - General Nurse Practitioner 11/15/19 documented as of this encounter
--- OUTSIDE RECORDS SUMMARY | 2024-06-17 14:53 | XMS_ITS | Encounter Summary ---
Author Organization [facility] Address [address] [place] [address] Phone Care Team Providers Care Calculus Teacher Name Role Phone Kenroy Freeman NIRALI Primary Care Provider [phone] Encounter Details Date Type Department Care Team (Late st Contact Info) Description 06/01/2023 Documentation Only [facility] [address] [place] [address] Deya Chowdhury [address] [place] [address] Social History Tobacco Use Types [...] Visit [facility] [address] [place] [address] Reginaldo Eagle MD [address] [place] [address] [place] [address] documented as of this encounter Visit Diagnoses Not on filedocumented in this encounter Care Teams Calculus Teacher Relationship Specialty Start Date End Date Kenroy Freeman NP [facility] [place] [address] PCP - General Nurse Practitioner 11/15/19 documented as of this encounter
--- OUTSIDE RECORDS SUMMARY | 2024-06-17 14:53 | XMS_ITS | Encounter Summary ---
Author Organization [facility] Address [address] [place] [address] Phone Care Team Providers Care Supervisor Mail Carriers Name Role Phone Kenroy Freeman NIRALI Primary Care Provider [phone] Encounter Details Date Type Department Care Team (Late st Contact Info) Description 10/13/2021 Documentation Only [facility] [address] [place] [address] Jose Martin Mccall MD [address] [facility] [place] [address] Social History Tobacco Use Types [...] [facility] [address] [place] [address] Reginaldo Eagle MD [address] [facility] [place] [address] documented as of this encounter Visit Diagnoses Not on filedocumented in this encounter Care Teams Supervisor Mail Carriers Relationship Specialty Start Date End Date Kenroy Freeman NP [facility] [place] [address] PCP - General Nurse Practitioner 11/15/19 documented as of this encounter
--- OUTSIDE RECORDS SUMMARY | 2024-06-17 14:53 | XMS_ITS | Encounter Summary ---
Author Organization [facility] Address [address] [place] [address] Phone Care Team Providers Care Senior Benefits Specialist Name Role Phone Kenroy Freeman NIRALI Primary Care Provider [phone] Encounter Details Date Type Department Care Team (Late st Contact Info) Description 08/18/2022 Documentation Only [facility] [address] [address] Elana ChowdaryHewlett, [place] [address] [place] [address] Social History Tobacco Use Types [...] Visit [facility] [address] [address] Reginaldo Eagle MD [address] [place] [address] documented as of this encounter Visit Diagnoses Not on filedocumented in this encounter Care Teams Senior Benefits Specialist Relationship Specialty Start Date End Date Kenroy Freeman [place] [place] [address] PCP - General Nurse Practitioner 11/15/19 documented as of this encounter
--- OUTSIDE RECORDS SUMMARY | 2024-06-17 14:53 | XMS_ITS | Encounter Summary ---
Author Organization [facility] Address [address] [place] [address] Phone Care Team Providers Care Overlay Operator Name Role Phone Kenroy Freeman NIRALI Primary Care Provider [phone] Encounter Details Date Type Department Care Team (Late st Contact Info) Description 08/18/2021 Documentation Only [facility] [address] [place] [address] Jose Martin Mccall MD [address] [place] [address] Social History Tobacco Use Types [...] Visit [facility] [address] [place] [address] Reginaldo Eagle MD [address] [place] [address] documented as of this encounter Visit Diagnoses Not on filedocumented in this encounter Care Teams Overlay Operator Relationship Specialty Start Date End Date Kenroy Freeman [place] [facility] [place] [address] PCP - General Nurse Practitioner 11/15/19 documented as of this encounter
--- OUTSIDE RECORDS SUMMARY | 2024-06-17 14:53 | XMS_ITS | Encounter Summary ---
Author Organization [facility] Address [address] [place] [address] Phone Care Team Providers Care Catia Designer Name Role Phone Kenroy Freeman NIRALI Primary Care Provider [phone] Encounter Details Date Type Department Care Team (Late st Contact Info) Description 06/02/2023 Documentation Only [facility] [address] [place] [address] Reanna Goyal [address] [place] [address] Social History Tobacco Use Types [...] Visit [facility] [address] [place] [address] Reginaldo Eagle MD [address] [place] [address] documented as of this encounter Visit Diagnoses Not on filedocumented in this encounter Care Teams Catia Designer Relationship Specialty Start Date End Date Kenroy Freeman NP [facility] [place] [address] PCP - General Nurse Practitioner 11/15/19 documented as of this encounter
--- OUTSIDE RECORDS SUMMARY | 2024-06-17 14:53 | XMS_ITS | Clinical Summary ---
Author Organization [facility] it Address [address] [place] [address] Care Team Providers Care Performance Analyst Name Role Phone Unavailable Primary Care Provider [...]
--- OUTSIDE RECORDS SUMMARY | 2024-06-17 14:53 | XMS_ITS | Clinical Summary ---
Author Organization [facility], Address [address] [place] [address] [place] [address] Phone Care Team Providers Care Retail Advertising Sales Manager Name Role Phone Kenroy Freeman NP Primary Care Provider [phone] Allergies Active Allergy Reactions Criticality Noted Date [...] Visit [facility] [place], [address] [place] [address] Tonya Wilson PA Stage 3b chronic kidney disease (HCC) (Primary Dx); Essential hypertension; Hematuria, not otherwise specified 03/20/2024 Documentation Only [facility] [place], [address] [place] [address] Reanna Goyal from Last 3 Months Immunizations Name Administration Dates Next Due H1N1 Inj 02/25/2016 Influenza, MDCK, Quadrivalent, with preservative 01/31/2018 Family History Medical History Relation Comments Heart disease Father [place] Stroke Father Hypertension Mother Cancer Sibling 1 [...] Visit [facility] [place], [address] [place] [address] Reginaldo Eagle MD [address] [place] [address] Health Maintenance Due Date Last Done [...] Influenza Vaccine (#1) 2023 01/31/[address] [place] [phone] [facility] CARE DUAL SNP ([id number]) ODALIS [place]ER[place] [id number] [place] [address] [place] [id number] Care Teams Retail Advertising Sales Manager Relationship Specialty Start Date End Date Kenroy Freeman NP [address] [place] [address] PCP - General Nurse Practitioner 11/15/19
--- OUTSIDE RECORDS SUMMARY | 2024-06-17 14:53 | XMS_ITS | Encounter Summary ---
Author Organization [facility] Address [address] [place] [address] Phone Care Team Providers Care Laborer Marine Terminal Name Role Phone Kenroy Freeman NP Primary Care Provider Encounter Details Date Type Department Care Team (Late st Contact Info) Description 09/19/2022 Documentation Only [facility] [address] [place] [address] Tonya Wilson PA Social History Tobacco Use [...] Visit [facility] [address] [place] [address] Reginaldo Eagle MD [address] [place] [address] [place] [phone] documented as of this encounter Visit Diagnoses Not on filedocumented in this encounter Care Teams Laborer Marine Terminal Relationship Specialty Start Date End Date Kenroy Freeman NP [address] [place] [address] PCP - General Nurse Practitioner 11/15/19 documented as of this encounter
--- OUTSIDE RECORDS SUMMARY | 2024-06-17 14:54 | XMS_ITS | Encounter Summary ---
Author Organization [facility] Address [address] [place] [address] Phone Care Team Providers Care Fire Management Officer Name Role Phone Kenroy Freeman NP Primary Care Provider [phone] Encounter Details Date Type Department Care Team (Late st Contact Info) Description 03/01/2021 Documentation Only [facility] [address] [place] [address] Falguni Whitney PA Social History Tobacco Use [...] Visit [facility] [address] [place] [phone] Reginaldo Eagle MD [address] [place] [address] [place] [address] documented as of this encounter Visit Diagnoses Not on filedocumented in this encounter Care Teams Fire Management Officer Relationship Specialty Start Date End Date Kenroy Freeman NP [address] [place] [address] PCP - General Nurse Practitioner 11/15/19 documented as of this encounter
--- OUTSIDE RECORDS SUMMARY | 2024-06-17 14:54 | XMS_ITS | Encounter Summary ---
Author Organization [facility] Address [address] [place] [address] Phone Care Team Providers Care Door And Arrival Attendant Name Role Phone Kenroy Freeman NIRALI Primary Care Provider [phone] Encounter Details Date Type Department Care Team (Late st Contact Info) Description 05/13/2021 Documentation Only [facility] [address] [place] [address] Jose Martin Mccall MD [address] [facility] [address] [facility] [place] [address] Social History Tobacco Use Types [...] Visit [facility] [address] [place] [address] Reginaldo Eagle MD [address] [facility] [place] [address] documented as of this encounter Visit Diagnoses Not on filedocumented in this encounter Care Teams Door And Arrival Attendant Relationship Specialty Start Date End Date Kenroy Freeman NP [facility] [place] [address] PCP - General Nurse Practitioner 11/15/19 documented as of this encounter
--- OUTSIDE RECORDS SUMMARY | 2024-06-17 14:54 | XMS_ITS | Encounter Summary ---
Author Organization [facility] Address [address] [place] [address] Phone Care Team Providers Care Sheep Farm Worker Name Role Phone Kenroy Freeman NIRALI Primary Care Provider [phone] Encounter Details Date Type Department Care Team (Late st Contact Info) Description 08/18/2021 Documentation Only [facility] [address] [place] [address] Jose Martin Mccall MD [address] [place] [address] Social History Tobacco Use Types [...] Visit [facility] [address] [place] [address] Reginaldo Eagle MD [address] [place] [address] documented as of this encounter Visit Diagnoses Not on filedocumented in this encounter Care Teams Sheep Farm Worker Relationship Specialty Start Date End Date Kenroy Freeman NP [facility] [place] [address] PCP - General Nurse Practitioner 11/15/19 documented as of this encounter
== END 2024-06-17 12:01 | disposition home or self-care (01) ==
LOC: HO.LNP 12:00
PROVIDERS: PCP Nurse Practitioner Family; Visit Provider Obstetrics & Gynecology
DX: R87.810 Cervical high risk human papillomavirus (HPV) DNA test positive (principal); R87.610 Atypical squamous cells of undetermined significance on cytologic smear of cervix (ASC-US)
CPT/HCPCS: 57454; 88305

== ENCOUNTER 2024-06-18 11:37 | Outpatient (AMB) | payer OTHER, SELFPAY ==
[2024-06-18 11:40] VITALS: BMI 42.7
--- NOTE | 2024-06-18 11:40 | A.OFFVIS_ITS ---
Vital Signs 06/18/24 11:40 Height 5 ft 1 in Weight 226 lb BMI 42.7 Intake Visit Reasons: Right knee pain Intake Note: Miriam is a 58 year old female who presents with complaints of progressively worsening right knee pain. She has had cortisone injections in the past which gave her minimal relief. She has also had viscosupplementation injections which gave her good relief. She wishes to hold off on total knee replacement surgery for as long as possible. She has tried Tylenol and anti-inflammatory medicines which gave her minimal relief. She has also done physical therapy exercises which aggravated her pain. She has failed the last 3 months of conservative treatment. At this point her right knee pain is interfering with her activities of daily living and her ability to sleep well through the night. She also has intermittent pain in her left knee. She states that at this point her left knee pain is tolerable to her. Allergies amlodipine [AMLODIPINE] Allergy (Unknown, Verified 06/18/24 11:43) RASH cephalexin [From KEFLEX] Allergy (Unknown, Verified 06/18/24 11:43) RASH levofloxacin [From LEVAQUIN] Allergy (Unknown, Verified 06/18/24 11:43) RASH Medication List - Last Reconciled 06/18/24 by Kp Cannon MD acetaminophen (Tylenol Extra Strength) 1,000 mg (2 x 500 mg) PO Q6H PRN albuterol sulfate 90 mcg/actuation (Ventolin HFA) 1 inh inhalation QID PRN alirocumab (Praluent Pen) 75 mg subcut Q2W 90 days aspirin (Adult Aspirin Regimen) 81 mg PO DAILY 90 days atorvastatin 80 mg PO DAILY dxdgyczyf-wzuxsikh-fycdatn ala 50-200-25 mg (Biktarvy) 1 tab PO DAILY 90 days cyanocobalamin (vitamin B-12) 1,000 mcg IM Q4W 3 months ezetimibe 10 mg PO DAILY levothyroxine 88 mcg PO DAILY levothyroxine 100 mcg orally once a week; take 88mcg all other days of the week lorazepam 1 mg PO BEDTIME PRN metoprolol succinate ER 100 mg PO BID nifedipine ER 30 mg PO DAILY [facility] Medical History 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 Anxiety Chronic kidney disease, stage 2 (mild) Morbid obesity Other and unspecified hyperlipidemia Essential hypertension Atherosclerotic cardiovascular disease Pituitary microadenoma Vitamin D deficiency Graves disease Post-surgical hypothyroidism Osteoarthritis GERD (gastroesophageal reflux disease) Leukopenia Cervical radiculitis Lumbar radiculopathy Pernicious anemia Obstructive sleep apnea Raynaud's phenomenon Pituitary microadenoma 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 Mother Stroke Sister Diabetes mellitus Maternal Grandmother Unknown family medical history Brother Cancer Sister No problems noted. Brother No problems noted. Daughter Healthy female Social History Housing: Apartment Are you a primary skin care specialist to a significant other at home: No Do you presently have visiting nurse or other home services: No Alcohol intake: current Alcohol intake frequency: holidays/special occasions only Patient Tobacco Use Status: Never used Tobacco e-Cigarette/Vaping Use: Never Used Second Hand Smoke Exposure: No Current occupational status: disabled Cognitive needs: No Hearing needs: No Vision needs: No Female Reproductive History Menstrual Age of Menarche: 13 Physical Exam Vital Signs: BMI result Body Mass Index 42.7 Const Other: Well-nourished well-developed very friendly female awake alert and oriented x3 in no acute distress Extrem Other: Bilateral lower extremity examination shows good capillary refill, no skin lesions noted, normal sensation light touch Right knee examination shows a minimal effusion, palpable crepitus with range of motion, pain with range of motion, range of motion from -3 degrees to 115 degrees, no instability Results Reviewed Results Reviewed: X-rays of the patient's right knee taken previously show joint space narrowing, subchondral sclerosis, no acute bony abnormalities Assessment & Plan Assessment & Plan (1) Right knee pain: Code(s): M25.561 - Pain in right knee Category: Medical (2) Osteoarthritis of right knee: Code(s): M17.11 - Unilateral primary osteoarthritis, right knee Category: Medical Plan Ms. Chacon presents with progressively worsening right knee pain due to osteoarthritis. I had a lengthy discussion with the patient regarding the treatment options. She wishes to hold off on total knee replacement surgery for as long as possible. I agree with this plan. I will see whether or not her insurance company will cover a another Durolane viscosupplementation injection. I will see her back once the injection is available. Feel free to call me at any time should questions regarding her orthopedic management arise. I spent 21 minutes in reviewing the patient's records and imaging studies, seeing the patient and documenting in the medical record. Coding Level of Care Code Est Pt Level 3 (00314) Complex EM visit Add On G2211 Diagnoses Right knee pain M25.561 Osteoarthritis of right knee M17.11
--- OUTSIDE RECORDS SUMMARY | 2024-06-18 14:47 | XMS_ITS | Encounter Summary ---
Author Organization [facility] Address [address] [place] [address] Phone Care Team Providers Care Assistant Men'S Soccer Coach Name Role Phone Kenroy Freeman NIRALI Primary Care Provider [phone] Encounter Details Date Type Department Care Team (Late st Contact Info) Description 03/20/2024 Documentation Only [facility] [address] [place] [address] Reanna Goyal [address] [place] [address] Social History Tobacco Use Types [...] Visit [facility] [address] [place] [address] Reginaldo Eagle MD [address] [facility] [place] [address] documented as of this encounter Visit Diagnoses Not on filedocumented in this encounter Care Teams Assistant Men'S Soccer Coach Relationship Specialty Start Date End Date Kenroy Freeman NP [facility] [place] [address] PCP - General Nurse Practitioner 11/15/19 documented as of this encounter
--- OUTSIDE RECORDS SUMMARY | 2024-06-18 14:47 | XMS_ITS | Clinical Summary ---
Author Organization [facility] it Address [address] [place] [address] Care Team Providers Care Magnetic Grinder Operator Name Role Phone Unavailable Primary Care Provider [...]
--- OUTSIDE RECORDS SUMMARY | 2024-06-18 14:47 | XMS_ITS | Encounter Summary ---
Author Organization [facility] Address [address] [place] [address] Phone Care Team Providers Care Tip Banding Machine Operator Name Role Phone Kenroy Freeman NIRALI Primary Care Provider [phone] Encounter Details Date Type Department Care Team (Late st Contact Info) Description 06/01/2023 Documentation Only [facility] [address] [place] [address] Deya Chowdhury [address] [place] [address] Social History Tobacco Use Types [...] Visit [facility] [address] [place] [address] Reginaldo Eagle MD [address] [place] [address] [place] [address] documented as of this encounter Visit Diagnoses Not on filedocumented in this encounter Care Teams Tip Banding Machine Operator Relationship Specialty Start Date End Date Kenroy Freeman NP [facility] [place] [address] PCP - General Nurse Practitioner 11/15/19 documented as of this encounter
--- OUTSIDE RECORDS SUMMARY | 2024-06-18 14:47 | XMS_ITS | Encounter Summary ---
Author Organization [facility] Address [address] [place] [address] Phone Care Team Providers Care Molded Grid And Parts Inspector Name Role Phone Kenroy Freeman NP Primary Care Provider [phone] Encounter Details Date Type Department Care Team (Late st Contact Info) Description 08/08/2022 Documentation Only [facility] [address] [place] [phone] Tonya Wilson PA Social History Tobacco Use [...] [facility] [address] [place] [phone] Reginaldo Eagle MD [address] [place] [address] [place] [id number] documented as of this encounter Visit Diagnoses Not on filedocumented in this encounter Care Teams Molded Grid And Parts Inspector Relationship Specialty Start Date End Date Kenroy Freeman NP [address] [place] [address] PCP - General Nurse Practitioner 11/15/19 documented as of this encounter
--- OUTSIDE RECORDS SUMMARY | 2024-06-18 14:47 | XMS_ITS | Encounter Summary ---
Author Organization [facility] Address [address] [place] [address] Phone Care Team Providers Care Four Corner Stayer Machine Operator Name Role Phone Kenroy Freeman NP Primary Care Provider [phone] Encounter Details Date Type Department Care Team (Late st Contact Info) Description 09/19/2022 Documentation Only [facility] [address] [place] [address] Tonya Wilson PA Social History Tobacco Use [...] Visit [facility] [address] [place] [phone] Reginaldo Eagle MD [address] [place] [address] [place] [phone] documented as of this encounter Visit Diagnoses Not on filedocumented in this encounter Care Teams Four Corner Stayer Machine Operator Relationship Specialty Start Date End Date Kenroy Freeman NP [address] [place] [address] PCP - General Nurse Practitioner 11/15/19 documented as of this encounter
--- OUTSIDE RECORDS SUMMARY | 2024-06-18 14:47 | XMS_ITS | Encounter Summary ---
Author Organization [facility] Address [address] [place] [address] Phone Care Team Providers Care Vessel Captain Name Role Phone Kenroy Freeman NIRALI Primary Care Provider [phone] Encounter Details Date Type Department Care Team (Late st Contact Info) Description 08/18/2022 Documentation Only [facility] [address] [place] [address] [place]ana [place], [place] [address] [place] [address] Social History Tobacco Use Types [...] Visit [facility] [address] [place] [address] Reginaldo Eagle MD [address] [facility] [place] [address] documented as of this encounter Visit Diagnoses Not on filedocumented in this encounter Care Teams Vessel Captain Relationship Specialty Start Date End Date Kenroy Freeman NP [facility] [place] [address] PCP - General Nurse Practitioner 11/15/19 documented as of this encounter
--- OUTSIDE RECORDS SUMMARY | 2024-06-18 14:47 | XMS_ITS | Data Portability ---
Author Organization [employer] [facility] [place] [facility] Address [address] [place] [address] Care Team Providers Care Lining Marker Name Role Phone KATHY TEIXEIRA Primary Care Provider [phone] HIM CCA OTHER Assessment Encounter Date Assessment Date Assessment LastModified by Organization Details LastModified Time 07/27/2023 07/27/2023 As noted, we were called to see this patient regarding concerns of weakness. Evaluation in the field was performed by my play reader colleague, as noted above, I provided real-time [...] QL IA, respiratory specimen 2023 024 [place] [facility], [address] [place] [address], [phone], 08/15/202 4 20:47:12 rapid flu (A+B) 2023 024 [place] [facility], [address] [place] [address], [phone], 4 20:47:49 culture, urine 2023 024 [email or web address] [facility], [address], [address], [place], [address], 09:51:23 urinalysis, dipstick 2023 024 [facility], [address] [place] [address], [phone], 15:29:52 rapid flu (A+B) 2021 022 [email or web address] [facility], [address] [place] [address], [address], 2 21:38:31 rapid SARS CoV 2 Ag, QL IA, respiratory specimen 2021 022 [email or web address] [facility], [address] [place] [address], [address], 2 21:38:31 rapid strep group A, throat 2021 022 [email or web address] [facility], [address] [place] [address], [address], 2 21:38:31 Referral None recorded. Procedures None recorded. Surgeries None recorded. Imaging None recorded. Medication Orders Paxlovid 300 mg (150 mg x 2)-100 mg tablets in a dose pack 2023 024 [facility] [id number], [address], [place], [phone], 14:35:21 Bactrim DS 800 mg-160 mg tablet 2023 024 [place] [id number], [address], [place], [phone], 4 13:03:33 potassium chloride ER 20 mEq [...] ts at testd irect ory.q uestd iagno [facility] .com Not Available [facility] [place] [facility] [address], [place], [address], 10/23/2023 15:48:24 10/23/19 24 10/23/2023 SPECI MEN [...] Patho logis ts (CAP) . Not Available [facility] [place] [facility] [address], [place], [address], 10/23/2023 15:48:25 10/23/19 24 10/23/2023 PATIE NT ID APPRO EDISON TIQ DOCUM ENTAT ION comment Ident ifica tion of test requi sitio n and/o r speci men(s ) was quest ionab le. The below named indiv idual provi ded this burton ed patie nt ident ifica tion. Not Available [facility] [place] [facility] [address] [place], [place], [address], 10/23/2023 15:48:25 10/23/19 24 10/23/2023 PATIE NT ID APPRO EDISON TIQ DOCUM ENTAT ION contact FAX Not Available [facility] [place] [facility] [address] [place], [place], [address], 10/23/2023 15:48:25 10/23/19 24 10/23/2023 PATIE NT ID APPRO EDISON TIQ DOCUM ENTAT ION tests affected 395 Not Available [facility] [place] [facility] [address] [place], [place], [address], 10/23/2023 15:48:25 10/23/19 24 10/23/2023 CULTU RE, URINE , ROUTI NE culture, urine, routine SEE NOTE CULTU RE, URINE , ROUTI NE Micro Numbe r: [id number] Test Statu s: Final Speci men [...] [facility] Faxed to: [phone] on: 10/19 18:29 NO COLLE CTION DATE RECEI ANJANA. WE HAVE USED THE DATE THE SPECI MEN WAS RECEI ANJANA BY THIS LABOR ATORY THE COLLE CTION DATE. IF THIS IS INCOR RECT, PLEAS E CONTA CT CLIEN T SERVI JUANY. PHONE NUMBE R: [phone] Not Available [facility] [place] [facility] [address], [place], [address], 10/23/2023 15:48:26 01/14/20 22 01/13/2022 rapid strep group A, throa t Strep negati ve Not Available [facility] ed [address] [place] [address], [address], 01/13/2022 21:37:04 01/14/20 22 01/13/2022 rapid SARS CoV 2 Ag, QL IA, respi rator y speci men rapid SARS CoV 2 Ag, QL IA, respiratory specimen negati ve Not Available [facility] ed [address] [place] [address], [address], 01/13/2022 21:37:00 01/14/20 22 01/13/2022 rapid flu (A+B) Flu negati ve Not Available [facility] ed [address] [place] [address], [address], 01/13/2022 21:36:59 Result Notes None recorded. Medical [...] Not available Not available Not available 02/13/2024 22417 RxNorm Not Available [facility] - production 4 [...] ONCE DIRECTED BY [facility] AT [facility] active Not Available Not Available No [...] Updated DateTime 4 18 /min 96.9 [degF] 898405. 2 g 100 % 100 % 70 /min 172 mm[Hg] 104 mm[Hg] Not Available [facility] [employer] production 4 18:07:31 Date Recorded Respiratory rate Oxygen saturation Oxygen saturation in Arterial blood by Pulse oximetry Heart rate Body temperature Systolic blood pressure Diastolic blood pressure Provider Name and Address Organization Details Last Updated DateTime 4 18 /min 99 % 99 % 82 /min 97.4 [degF] 132 mm[Hg] 82 mm[Hg] Not Available [facility] [employer] [facility] [facility] - [facility]r 4 12:54:21 Date Recorded Oxygen saturation Oxygen saturation in Arterial blood by Pulse oximetry Heart rate Respiratory rate Body temperature Systolic blood pressure Diastolic blood pressure Provider Name and Address Organization Details Last Updated DateTime 4 95 % 95 % 110 /min 20 /min 98.1 [degF] 130 mm[Hg] 90 mm[Hg] Not Available [employer] 4 14:16:32 Date Recorded Oxygen saturation Oxygen [...] Updated DateTime 2 96 % 96 % 13783.2 4 g 154.94 cm 97.4 [degF] 20 /min 130 /min 97.4 [degF] 96 % 96 % 130 /min 154.94 cm 77267.2 4 g 20 /min 128 mm[Hg] 84 mm[Hg] 128 mm[Hg] 84 mm[Hg] Not Available [employer] 2 17:44:08 Social History None recorded. Functional [...] [id number] Ray Goyal MD Main - [facility] [address] [place] [phone] 01/13/2022 15:51:31 01/17/2022 16:23:27 Cough 99522071 R05.9 COVID, Flu, strep negative. No s/s of pneumonia or asthma exacerbati on. O2 sat normal. Supportive care. Tachycardia 7511513 R00. [address]-T wave changes. HR came down to 103 Hypokalemia 39691895 E87 .6 [place] 40 [place] [id number] Kiki Martinez MD [facility] [address] [place] [phone] 07/27/2023 18:07:29 07/28/2023 12:52:04 Weakness present 916183482 M62.81 [id number] Ray Goyal MD [facility] [address] [place] [address] 10/14/2023 12:50:48 10/15/2023 21:01:10 Dysuria 02872560 R30.0 Recently treated with Macrobid (treated five days prior), now with worsening pain. Amenable to trying antibiotic prior to obtaining culture. Discussed red flag signs for which to seek higher level of care. [id number] Ray Goyal MD [facility] [address] [place] [phone] 11/30/2023 14:02:19 12/01/2023 13:01:16 COVID-19 972907878 U07.1 COVID positive. Flu negative. s/p vaccinatio [...] Lala Member ID Guarantor Name 01/13/2022 1 [facility] - DOS PRIOR TO 2022 - DUAL ELIGIBLE (MEDICARE REPLACEMENT/ADV ANTAGE - HMO) Miriam Oswaldo [id number] Miriam Gallardo Oswaldo 07/27/2023 1 [facility] - DOS ON OR AFTER 2022 - DUAL ELIGIBLE - [employer] OPTIONS AND ONE CARE (MEDICARE REPLACEMENT/ADV ANTAGE - HMO) Miriam Oswaldo [id number] Miriam Lillyshahzad 10/14/2023 1 [facility] - DOS ON OR AFTER 2022 - DUAL ELIGIBLE - [facility] OPTIONS AND ONE CARE (MEDICARE REPLACEMENT/ADV ANTAGE - HMO) Miriam Lancasteranatoly [id number] Miriam Gallardo Oswaldo 11/30/2023 1 [facility] - DOS ON OR AFTER 2022 - DUAL ELIGIBLE - [facility] OPTIONS AND ONE CARE (MEDICARE REPLACEMENT/ADV ANTAGE - HMO) Miriam Lancasteranatoly [id number] Miriam Gallardo Oswaldo Notes Date Note Type Note Provider Name and Address Organization Details Recorded Time 01/13/2022 text/html HPI: Referral taken over the phone by members nurse wound care. Member with cold like symptoms since Monday. Member c/o cough, congestion, fatigued and unable to sleep. Home covid test negative. CM unsure if member has phlegm, fever/chills or any hx of asthma/copd. Per CM member safe and stable to wait for an [facility] visit. ................... ................... ................... ................... ................... ................... ................... ........ CRC Nursing Assessment: Comments: CRC RN did not require any additional information to process this visit. ................... ................... ................... ................... ................... ................... ................... ........ Swatch Clerk Note: Sent to a call for a [...] sample obtained; Urine dip: Results uploaded to [employer]; [facility] orders 12 lead ECG, Rapid Strep test, and POC CMP; Rapid strep: neg; blood sample obtained via venous blood draw; CMP results: potassium low; ECG results: uploaded to [employer]. [facility] orders Potassium 40meq PO; Potassium administered. Red flags discussed. Pt has no further questions. ................... ................... ................... ................... ................... ................... ................... ........ Disposition: Fulfilled Ray Goyal MD [address] [facility],[address], [place], [address], [employer] 01/13/2022 21:38:55 07/27/2023 text/html CRC Nurse Triage Notes (Loulou Pimentel): Chief Complaints: Weakness/Lethargy PMH: Hypertension, Other Comments: PMH: Hypothyroid, HIV Member was recently seen in the ED for bradycardia in the 50's. No interventions taken related to bradycardia. Member. Feeling weakness and fatigue over the last 2 days. Denies chest pain, shortness of breath or dizziness. Prescribed metoprolol daily for HTN. Unable reach Window/Distribution Clerk today. HR 50's today. Reviewed RED flags. Instructed member to call 911 for worsening signs/symptoms. ................... ................... ................... ................... ................... ................... ................... ........ Swatch Clerk Note From Renato Bangura: Pt co fatigue [...] RX metoprolol . Lungs clear no edema. [facility] contacted and advised pt to follow up with job developer and pcp. Pt education on signs indicating the ER. ................... ................... ................... ................... ................... ................... ................... ........ Disposition: Fulfilled Kiki Martinez MD [address] [facility],[address], [place], [address], [employer] 07/27/2023 18:47:44 10/14/2023 text/html CRC Nurse Triage [...] fever/chills. Member would like to be evaluated. Swatch Clerk POC Test Results from Deyanira Guy Urine [...] ................... ................... ................... ................... ................... ................... ........ Swatch Clerk Note From Deyanira Guy: Pt with two [...] up with pcp Monday, red flags reviewed. Swatch Clerk Allergies: Cephalexin, Levofloxacin ................... ................... ................... ................... ................... ................... ................... ........ Disposition: Fulfilled Ray Goyal MD [address] [place] [address],[address], [place], [address], [employer] 10/14/2023 13:34:41 11/30/2023 text/html CRC Nurse Triage Notes (Loulou Pimentel): Reason For Request: Pt reporting cold like symptoms > unable to eat in 2 days>issues with her lower back>Legs and arms on the LEFT side are going numb Chief Complaints: Cough, Weakness/Lethargy, Pain PMH: Hypertension, HIV Allergies: Cephalexin, Levofloxacin Comments: Poultry Culler verified the member's name//address and phone number. Cold symptoms since Monday. + cough, rhinnorhea, and fatigue. Denies fever. Exposed to boyfriend who was sick. Decreased appetite x2 days. Drinking fluids. c/o lower abdominal pain and increased bowel movement frequency. No diarrhea. Education provided on the response time and the member was advised to monitor reported s/s and seek emergency treatment if needed. Swatch Clerk Organization Information for Obinna Sutton Business Legal Name: [employer]? Address: [address] [place] [address], Small Engine Mechanic: Mark Velazquez MD [facility] No.: [id number] Swatch Clerk POC Test Results from Obinna Sutton Rapid COVID antigen (15:27:55) COVID: + Rapid influenza antigen (15:27:56) Flu: - Urine Dipstick (15:36:39) Urine leukocytes: NR Urine nitrites: NR Urine urobilinogen: NR Urine protein: NR Urine pH: NR Urine blood: NR Urine specific gravity: NR Urine ketones: NR Urine bilirubin: NR Urine glucose: NR ................... ................... ................... ................... ................... ................... ................... ........ Swatch Clerk Note From Obinna Sutton: Dispatched to the [...] -sob -dizziness -nvd -abd pain -blurred vision. [facility] contacted and ordered flu and covid test with U/A. Covid test was positive negative on flu and urine showed positive ketones and blood. [facility] ordered the patient Paxlovid to her pharmacy [...] ........ Disposition: Fulfilled Ray Goyal MD [address] [facility],[address], [place], [address], [employer] 11/30/2023 16:52:34 OBGyn Episode No OBEpisode recorded.
--- OUTSIDE RECORDS SUMMARY | 2024-06-18 14:47 | XMS_ITS | Encounter Summary ---
Author Organization [facility] Address [address] [place] [address] Phone Care Team Providers Care Business Intelligence Analyst Name Role Phone Kenroy Freeman NIRALI Primary Care Provider [phone] Encounter Details Date Type Department Care Team (Late st Contact Info) Description 09/27/2021 Documentation Only [facility] [address] [place] [address] Jose Martin Mccall MD [address] [facility] [place] [address] Social History Tobacco Use Types [...] Visit [facility] [address] [place] [address] Reginaldo Eagle MD [address] [facility] [place] [address] documented as of this encounter Visit Diagnoses Not on filedocumented in this encounter Care Teams Business Intelligence Analyst Relationship Specialty Start Date End Date Kenroy Freeman [place] [facility] [address] PCP - General Nurse Practitioner 11/15/19 documented as of this encounter
--- OUTSIDE RECORDS SUMMARY | 2024-06-18 14:47 | XMS_ITS | Encounter Summary ---
Author Organization [facility] Address [address] [place] [address] Phone Care Team Providers Care Billiard Table Mechanic Name Role Phone Kenroy Freeman NIRALI Primary Care Provider [phone] Encounter Details Date Type Department Care Team (Late st Contact Info) Description 06/02/2023 Documentation Only [facility] [address] [place] [address] Reanna Goyal [address] [place] [address] Social History Tobacco Use Types [...] Services [facility] [address] [place] [address] Reginaldo Eagle MD [address] [facility] [place] [address] documented as of this encounter Visit Diagnoses Not on filedocumented in this encounter Care Teams Billiard Table Mechanic Relationship Specialty Start Date End Date Kenroy Freeman NP [place] [address] PCP - General Nurse Practitioner 11/15/19 documented as of this encounter
--- OUTSIDE RECORDS SUMMARY | 2024-06-18 14:47 | XMS_ITS | Encounter Summary ---
Author Organization [facility] Address [address] [place] [address] Phone Care Team Providers Care Order Processor Name Role Phone Kenroy Freeman NIRALI Primary Care Provider [phone] Encounter Details Date Type Department Care Team (Late st Contact Info) Description 10/13/2021 Documentation Only [facility] [address] [place] [address] Jose Martin Mccall MD [address] [facility] [address] [place] [address] Social History Tobacco Use Types [...] Visit [facility] [address] [place] [address] Reginaldo Eagle MD [address] [facility] [address] [place] [address] documented as of this encounter Visit Diagnoses Not on filedocumented in this encounter Care Teams Order Processor Relationship Specialty Start Date End Date Kenroy Freeman NP [facility] [place] [address] PCP - General Nurse Practitioner 11/15/19 documented as of this encounter
--- OUTSIDE RECORDS SUMMARY | 2024-06-18 14:48 | XMS_ITS | Encounter Summary ---
Author Organization [facility] Address [address] [place] [address] Phone Care Team Providers Care Oil Field Equipment Mechanic Name Role Phone Kenroy Freeman NIRALI Primary Care Provider [phone] Encounter Details Date Type Department Care Team (Late st Contact Info) Description 05/13/2021 Documentation Only [facility] [address] [place] [address] Jose Martin Mccall MD [address] [facility] [address] [place] [address] Social History Tobacco Use Types [...] [facility] [address] [place] [address] Reginaldo Eagle MD [address] [address] [place] [address] documented as of this encounter Visit Diagnoses Not on filedocumented in this encounter Care Teams Oil Field Equipment Mechanic Relationship Specialty Start Date End Date Kenroy Freeman NP [facility] [place] [address] PCP - General Nurse Practitioner 11/15/19 documented as of this encounter
--- OUTSIDE RECORDS SUMMARY | 2024-06-18 14:48 | XMS_ITS | Encounter Summary ---
Author Organization [facility] Address [address] [place] [address] Phone Care Team Providers Care Mincing Machine Operator Name Role Phone Kenroy Freeman NIRALI Primary Care Provider [phone] Encounter Details Date Type Department Care Team (Late st Contact Info) Description 08/18/2021 Documentation Only [facility] [address] [place] [address] Jose Martin Mccall MD [address] [place] [address] Social History Tobacco Use Types [...] [facility] [address] [place] [address] Reginaldo Eagle MD [address] [place] [address] documented as of this encounter Visit Diagnoses Not on filedocumented in this encounter Care Teams Mincing Machine Operator Relationship Specialty Start Date End Date Kenroy Freeman NP [facility] [place] [address] PCP - General Nurse Practitioner 11/15/19 documented as of this encounter
--- OUTSIDE RECORDS SUMMARY | 2024-06-18 14:48 | XMS_ITS | Encounter Summary ---
Author Organization [facility] Address [address] [place] [address] Phone Care Team Providers Care Lithograph Press Operator Name Role Phone Kenroy Freeman NIRALI Primary Care Provider [phone] Encounter Details Date Type Department Care Team (Late st Contact Info) Description 08/18/2021 Documentation Only [facility] [address] [place] [address] Jose Martin Mccall MD [address] [place] [address] Social History Tobacco Use Types [...] Visit [facility] [address] [place] [address] Reginaldo Eagle MD [address] [place] [address] documented as of this encounter Visit Diagnoses Not on filedocumented in this encounter Care Teams Lithograph Press Operator Relationship Specialty Start Date End Date Kenroy Freeman NP [facility] [place] [address] PCP - General Nurse Practitioner 11/15/19 documented as of this encounter
--- OUTSIDE RECORDS SUMMARY | 2024-06-18 14:48 | XMS_ITS | Clinical Summary ---
Author Organization [facility], Address [address] [place] [address] [place] [address] Phone Care Team Providers Care Water Chaser Name Role Phone Kenroy Freeman NP Primary Care Provider [phone] Allergies Active Allergy Reactions Criticality Noted Date [...] Visit [facility] [place], [address] [place] [address] Tonya Wilson PA Stage 3b chronic kidney disease (HCC) (Primary Dx); Essential hypertension; Hematuria, not otherwise specified 03/20/2024 Documentation Only [facility] [place], [address] [place] [address] Reanna Goyal from Last 3 Months Immunizations Name Administration Dates Next Due H1N1 Inj 02/25/2016 Influenza, MDCK, Quadrivalent, with preservative 01/31/2018 Family History Medical History Relation Comments Heart disease Father [place] Stroke Father Hypertension Mother Cancer Sibling 1 [...] Visit [facility] [place], [address] [place] [address] Reginaldo Eagle MD [address] [place] [address] Health Maintenance Due Date Last Done [...] Influenza Vaccine (#1) 2023 01/31/[address] [place] [id number] [facility] DUAL SNP ([id number]) [place] [id number] [place] [address] [place] [address] Care Teams Water Chaser Relationship Specialty Start Date End Date Kenroy Freeman NP [address] [place] [address] PCP - General Nurse Practitioner 11/15/19
--- OUTSIDE RECORDS SUMMARY | 2024-06-18 14:48 | XMS_ITS | Encounter Summary ---
Author Organization [facility] Address [address] [place] [address] Phone Care Team Providers Care Ships Equipment Engineer Name Role Phone Kenroy Freeman NP Primary Care Provider [phone] Encounter Details Date Type Department Care Team (Late st Contact Info) Description 03/01/2021 Documentation Only [facility] [address] [place] [address] Falguni Whitney PA Social History Tobacco Use [...] [facility] / [facility] [address] [place] [id number] Reginaldo Eagle MD [address] [place] [address] [place] [phone] documented as of this encounter Visit Diagnoses Not on filedocumented in this encounter Care Teams Ships Equipment Engineer Relationship Specialty Start Date End Date Kenroy Freeman NP [address] [place] [address] PCP - General Nurse Practitioner 11/15/19 documented as of this encounter
--- OUTSIDE RECORDS SUMMARY | 2024-06-18 14:48 | XMS_ITS | Patient Health Record ---
Author Organization [facility] Address [address] [place] [address] Care Team Providers Care Hatch Supervisor Name Role Phone Kenroy Sánchez Primary Care Provider Unav ailable Black, Cherise Unavailable [phone] Allergies Allergen (clinical drug ingredient) Drug/Non Drug [...] Status Risk Notes Problem Acquired hallux valgus (14041354) Hallux valgus (acquired), left foot (M20.12) Active confirmed Problem Acquired hallux valgus (96573681) Hallux valgus (acquired), right foot (M20.11) Active confirmed Problem [id number] 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) Active confirmed Problem [id number] Pronation deformity of right foot (M21.6X1) Active confirmed Plan Of Treatment No Information Insurance Providers Payer Name Payer Address Payer Phone Subscriber Number Group Number Insured Name Patient Relationship to Insured Coverage Start Date Coverage End Date [facility] S[employer] Claims [address] [place] [id number] Miriam Chacon Self - patient is the insured Medical (General) History Medical History History ICD Code Anxiety Depression High blood pressure raynauds disease Sciatica thyroid HIV Surgical History Surgery Date(Month/Year) tubes in ears tubal ligation 2000 shoulder surgery
== END 2024-06-18 11:56 | disposition home or self-care (01) ==
PROVIDERS: PCP Nurse Practitioner Family; Visit Provider Orthopaedic Surgery
DX: M25.561 Pain in right knee (principal); M17.11 Unilateral primary osteoarthritis, right knee
CPT/HCPCS: 99213; G2211

== ENCOUNTER → 2024-06-18 11:37 | Outpatient (BNVA) | payer OTHER, SELFPAY | PROVIDERS: PCP Nurse Practitioner Family; Visit Provider Orthopaedic Surgery | DX: M17.11 Unilateral primary osteoarthritis, right knee (principal) | CPT/HCPCS: 99212 ==

== ENCOUNTER 2024-06-20 10:40 | Outpatient (AMB) | payer OTHER, SELFPAY ==
--- NOTE | 2024-06-20 10:42 | MHC.OFFVIS ---
Vital Signs 06/20/24 10:45 Height 5 ft 1 in Weight 224 lb 13.944 oz BMI 42.5 BP 132/64 Blood Pressure Location Lt brachial Position Sitting Pulse 73 Pulse Source Monitor Intake Visit Reasons: 1 yr f/up Crude Tester Required: No Accompanied by: Self / Same As Patient Allergies amlodipine [AMLODIPINE] Allergy (Unknown, Verified 06/18/24 11:43) RASH cephalexin [From KEFLEX] Allergy (Unknown, Verified 06/18/24 11:43) RASH levofloxacin [From LEVAQUIN] Allergy (Unknown, Verified 06/18/24 11:43) RASH Medication List - Last Reconciled 06/20/24 by Cristiano Reyez MD acetaminophen (Tylenol Extra Strength) 1,000 mg (2 x 500 mg) PO Q6H PRN albuterol sulfate 90 mcg/actuation (Ventolin HFA) 1 inh inhalation QID PRN alirocumab (Praluent Pen) 75 mg subcut Q2W 90 days aspirin (Adult Aspirin Regimen) 81 mg PO DAILY 90 days atorvastatin 80 mg PO DAILY bchteatme-frqepsik-gsfuyym ala 50-200-25 mg (Biktarvy) 1 tab PO DAILY 90 days cyanocobalamin (vitamin B-12) 1,000 mcg IM Q4W 3 months ezetimibe 10 mg PO DAILY levothyroxine 88 mcg PO DAILY levothyroxine 100 mcg orally once a week; take 88mcg all other days of the week lorazepam 1 mg PO BEDTIME PRN metoprolol succinate ER 100 mg PO BID nifedipine ER 30 mg PO DAILY HPI Comments Details: Miriam returns for follow-up regarding coronary disease, hypertension, dyslipidemia. Since last seen, she states she feels good. No cardiac symptoms whatsoever. 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 Mother Stroke Sister Diabetes mellitus Maternal Grandmother Unknown family medical history Brother Cancer Sister No problems noted. Brother No problems noted. Daughter Healthy female Social History Housing: Apartment Are you a primary career services representative to a significant other at home: No Do you presently have visiting nurse or other home services: No Alcohol intake: current Alcohol intake frequency: holidays/special occasions only Patient Tobacco Use Status: Never used Tobacco e-Cigarette/Vaping Use: Never Used Second Hand Smoke Exposure: No Current occupational status: disabled Cognitive needs: No Hearing needs: No Vision needs: No Female Reproductive History Menstrual Age of Menarche: 13 Review of Systems Const Denies chills, Denies fatigue, Denies fever(s), Denies frequent falls, Denies weakness, Denies weight gain and Denies weight loss ENT Denies dizziness Card Denies chest pain, Denies leg edema, Denies lightheadedness, Denies palpitations, Denies dyspnea and Denies dyspnea on exertion Resp Denies cough, Denies dyspnea and Denies dyspnea on exertion GI Denies hematochezia Musc Denies abnormal gait, Denies muscle weakness, Denies numbness, Denies radiating pain into limb and Denies tingling Neuro Denies abnormal gait, Denies dizziness, Denies frequent falls, Denies numbness, Denies tingling and Denies weakness Endo Denies fatigue and Denies palpitations Physical Exam Vital Signs: Last Vital Signs Pulse 73 06/20/24 10:45 BP 132/64 06/20/24 10:45 BMI result Body Mass Index 42.5 Const General: comfortable and no acute distress Orientation/consciousness: patient oriented x3 HEENT Other: Unremarkable Head: Yes normal to inspection Neck Neck: Yes normal visual inspection Chest Chest palpation & inspection: normal inspection of the chest Resp Auscultation: clear to auscultation bilaterally Cardio Palpation: normal PMI Heart sounds: S1 normal heart sound present, S2 normal heart sound present, no gallops, no murmurs and no rubs GI Palpation (GI): Soft to palpation Back/Spine/Pelvis Other: unremarkable Skin General skin exam: no rashes or lesions noted Neuro General: patient oriented x3 Extrem General: Yes normal to inspection Psych Mental Status: mental status grossly normal Office Procedures EKG Details: EKG with underlying sinus rhythm at 73/Min; no significant ST-T changes; [place] [address]-[id number], Complete Assessment & Plan Assessment & Plan (1) Atherosclerotic cardiovascular disease: Code(s): I25.10 - Atherosclerotic heart disease of [place] coronary artery without angina pectoris Category: Medical Plan: In prior coronary CTA, she had mild mid to distal left main plaque and moderate plaque in the proximal LAD; mild plaque in circumflex. Clinically, no angina. She can remain on aspirin. Mainly, risk factor modification. (2) Essential hypertension: Code(s): I10 - Essential (primary) hypertension Category: Medical Plan: Stable on the current regimen. No changes. (3) Other and unspecified hyperlipidemia: Code(s): E78.5 - Hyperlipidemia, unspecified Category: Medical Plan: She is on statins, Zetia, Praluent. Last LDL 66 mg/dL. Triglycerides 75 mg/dL. (4) Morbid obesity: Code(s): E66.01 - Morbid (severe) obesity due to excess calories Category: Medical Plan: Weight has been a long-term issue. Has been discussed numerous times including today. (5) Obstructive sleep apnea: Code(s): G47.33 - Obstructive sleep apnea (adult) (pediatric) Category: Medical Plan: CPAP as much as she can use. Coding Level of Care Code Est Pt Level 4 (89738) Complex EM visit Add On G2211 Diagnoses Atherosclerotic cardiovascular disease I25.10 Essential hypertension I10 Other and unspecified hyperlipidemia E78.5 Morbid obesity E66.01 Obstructive sleep apnea G47.33 CPT Codes EKG - CPT: 65875-Bsgfngfdejgleygbm, Complete ([id number])
[2024-06-20 10:45] VITALS: BP 132/64; PULSE 73; BMI 42.5
--- OUTSIDE RECORDS SUMMARY | 2024-06-20 12:45 | XMS_ITS | Encounter Summary ---
Author Organization [facility] Address [address] [place] [address] Phone Care Team Providers Care Investigator Operator Name Role Phone Kenroy Freeman NIRALI Primary Care Provider [phone] Encounter Details Date Type Department Care Team (Late st Contact Info) Description 08/18/2022 Documentation Only [facility] [address] [place] [address] [place], [place] [address] [place] [address] Social History Tobacco Use Types [...] Visit [facility] [address] [place] [address] Reginaldo Eagle MD [address] [place] [address] documented as of this encounter Visit Diagnoses Not on filedocumented in this encounter Care Teams Investigator Operator Relationship Specialty Start Date End Date Kenroy Freeman NP [facility] [place] [address] PCP - General Nurse Practitioner 11/15/19 documented as of this encounter
--- OUTSIDE RECORDS SUMMARY | 2024-06-20 12:45 | XMS_ITS | Encounter Summary ---
Author Organization [facility] Address [address] [place] [address] Phone Care Team Providers Care Manager Cash Name Role Phone Kenroy Freeman NP Primary Care Provider [phone] Encounter Details Date Type Department Care Team (Late st Contact Info) Description 08/08/2022 Documentation Only [facility] [address] [place] [address] Tonya Wilson PA Social History Tobacco Use [...] [facility] [address] [place] [address] Reginaldo Eagle MD [address] [place] [address] [place] [id number] documented as of this encounter Visit Diagnoses Not on filedocumented in this encounter Care Teams Manager Cash Relationship Specialty Start Date End Date Kenroy Freeman NP [address] [place] [address] PCP - General Nurse Practitioner 11/15/19 documented as of this encounter
--- OUTSIDE RECORDS SUMMARY | 2024-06-20 12:45 | XMS_ITS | Encounter Summary ---
Author Organization [facility] Address [address] [place] [address] Phone Care Team Providers Care Manager Sign Name Role Phone Kenroy Freeman NIRALI Primary Care Provider [phone] Encounter Details Date Type Department Care Team (Late st Contact Info) Description 10/13/2021 Documentation Only [facility] [address] [place] [address] Jose Martin Mccall MD [address] [place] [address] Social History Tobacco Use Types [...] Visit [facility] [address] [place] [address] Reginaldo Eagle MD [address] [place] [address] documented as of this encounter Visit Diagnoses Not on filedocumented in this encounter Care Teams Manager Sign Relationship Specialty Start Date End Date Kenroy Freeman NP [facility] [place] [address] PCP - General Nurse Practitioner 11/15/19 documented as of this encounter
--- OUTSIDE RECORDS SUMMARY | 2024-06-20 12:45 | XMS_ITS | Clinical Summary ---
Author Organization [facility] Address [address] [place] [address] Care Team Providers Care Home Health Care Worker Name Role Phone Unavailable Primary Care Provider [...]
--- OUTSIDE RECORDS SUMMARY | 2024-06-20 12:46 | XMS_ITS | Patient Health Record ---
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) Active confirmed Problem [id number] Pronation deformity of right foot (M21.6X1) Active confirmed Plan Of Treatment No Information Insurance Providers Payer Name Payer Address Payer Phone Subscriber Number Group Number Insured Name Patient Relationship to Insured Coverage Start Date Coverage End Date [facility] S[employer] Claims [address] [place] [id number] Miriam Chacon Self - patient is the insured Medical (General) History Medical History History ICD Code Anxiety Depression High blood pressure raynauds disease Sciatica thyroid HIV Surgical History Surgery Date(Month/Year) tubes in ears tubal ligation 2000 shoulder surgery
--- OUTSIDE RECORDS SUMMARY | 2024-06-20 12:46 | XMS_ITS | Encounter Summary ---
Author Organization [facility] Address [address] [place] [address] Phone Care Team Providers Care Business Support Professional Name Role Phone Kenroy Freeman NIRALI Primary Care Provider [phone] Encounter Details Date Type Department Care Team (Late st Contact Info) Description 06/01/2023 Documentation Only [facility] [address] [place] [address] Deya Chowdhury [address] [place] [address] Social History Tobacco Use Types [...] Visit [facility] [address] [place] [address] Reginaldo Eagle MD [address] [place] [address] [place] [address] documented as of this encounter Visit Diagnoses Not on filedocumented in this encounter Care Teams Business Support Professional Relationship Specialty Start Date End Date Kenroy Freeman NP [facility] [place] [address] PCP - General Nurse Practitioner 11/15/19 documented as of this encounter
--- OUTSIDE RECORDS SUMMARY | 2024-06-20 12:46 | XMS_ITS | Data Portability ---
Author Organization [facility] [place] - [facility] Address [address] [place] [address] Care Team Providers Care Petroleum Supply Specialist Name Role Phone AKTHY TEIXEIRA Primary Care Provider HIM CCA OTHER Assessment Encounter Date Assessment Date Assessment LastModified by Organization Details LastModified Time 07/27/2023 07/27/2023 As noted, we were called to see this patient regarding concerns of weakness. Evaluation in the field was performed by my supply crib attendant colleague, as noted above, I provided real-time [...] QL IA, respiratory specimen 2023 024 [place] [facility], [address] [place] [address], [place], [address], 08/15/202 4 20:47:12 rapid flu (A+B) 2023 024 [place] [facility], [address] [place] [address], [phone], 4 20:47:49 culture, urine 2023 024 [email or web address] [facility], [address], [place], [place], [address], 09:51:23 urinalysis, dipstick 2023 024 [facility] [address] [place] [address], [phone], 15:29:52 rapid flu (A+B) 2021 022 [email or web address] [facility], [address] [place] [address], [id number], 2 21:38:31 rapid SARS CoV 2 Ag, QL IA, respiratory specimen 2021 022 [email or web address] [facility], [address] [place] [address], [phone], 2 21:38:31 rapid strep group A, throat 2021 022 [email or web address] [facility], [address] [place] [address], [phone], 2 21:38:31 Referral None recorded. Procedures None recorded. Surgeries None recorded. Imaging None recorded. Medication Orders Paxlovid 300 mg (150 mg x 2)-100 mg tablets in a dose pack 2023 024 [id number], [address], [place], [phone], 14:35:21 Bactrim DS 800 mg-160 mg tablet 2023 024 [place] [id number], [address], [place], [id number], 4 13:03:33 potassium chloride ER 20 mEq [...] ts at testd irect ory.q uestd iagno [employer] .com Not Available [facility] [place] [facility] [address], [place], [address], 10/23/2023 15:48:24 10/23/19 24 10/23/2023 SPECI MEN [...] Patho logis ts (CAP) . Not Available [facility] [place] [facility] [address], [place], [address], 10/23/2023 15:48:25 10/23/19 24 10/23/2023 PATIE NT ID APPRO EDISON TIQ DOCUM ENTAT ION comment Ident ifica tion of test requi sitio n and/o r speci men(s ) was quest ionab le. The below named indiv idual provi ded this burton ed patie nt ident ifica tion. Not Available [facility] [place] [facility] [address], [place], [address], 10/23/2023 15:48:25 10/23/19 24 10/23/2023 PATIE NT ID APPRO EDISON TIQ DOCUM ENTAT ION contact FAX Not Available [facility] [place] [facility] [address] [place], [place], [address], 10/23/2023 15:48:25 10/23/19 24 10/23/2023 PATIE NT ID APPRO EDISON TIQ DOCUM ENTAT ION tests affected 395 Not Available [facility] [place] [facility] [address] [place], [place], [address], 10/23/2023 15:48:25 10/23/19 24 10/23/2023 CULTU RE, URINE , ROUTI NE culture, urine, routine SEE NOTE CULTU RE, URINE , ROUTI NE Micro Numbe r: [id number] Test Statu s: Final Speci men [...] repor t [facility]: Faxed to: [phone] on: 10/19 18:29 NO COLLE CTION DATE RECEI ANJANA. WE HAVE USED THE DATE THE SPECI MEN WAS RECEI ANJANA BY THIS LABOR ATORY THE COLLE CTION DATE. IF THIS IS INCOR RECT, PLEAS E CONTA CT CLIEN T SERVI JUANY. PHONE NUMBE R: [phone] Not Available [facility] [place] [facility] [address], [place], [address], 10/23/2023 15:48:26 01/14/20 22 01/13/2022 rapid strep group A, throa t Strep negati ve Not Available [facility] ed [address] [place] [address], [id number], 01/13/2022 21:37:04 01/14/20 22 01/13/2022 rapid SARS CoV 2 Ag, QL IA, respi rator y speci men rapid SARS CoV 2 Ag, QL IA, respiratory specimen negati ve Not Available [facility] ed [address] [place] [address], [id number], 01/13/2022 21:37:00 01/14/20 22 01/13/2022 rapid flu (A+B) Flu negati ve Not Available [facility] ed [address] [place] [address], [address], 01/13/2022 21:36:59 Result Notes None recorded. Medical [...] Not available Not available Not available 02/13/2024 94651 RxNorm Not Available [facility] - production 4 [...] ONCE DIRECTED BY [facility] active Not Available Not Available No [...] Updated DateTime 4 18 /min 96.9 [degF] 958154. 2 g 100 % 100 % 70 /min 172 mm[Hg] 104 mm[Hg] Not Available [facility] [employer] 4 18:07:31 Date Recorded Respiratory rate Oxygen saturation Oxygen saturation in Arterial blood by Pulse oximetry Heart rate Body temperature Systolic blood pressure Diastolic blood pressure Provider Name and Address Organization Details Last Updated DateTime 4 18 /min 99 % 99 % 82 /min 97.4 [degF] 132 mm[Hg] 82 mm[Hg] Not Available [facility] [employer] 4 12:54:21 Date Recorded Oxygen saturation Oxygen saturation in Arterial blood by Pulse oximetry Heart rate Respiratory rate Body temperature Systolic blood pressure Diastolic blood pressure Provider Name and Address Organization Details Last Updated DateTime 4 95 % 95 % 110 /min 20 /min 98.1 [degF] 130 mm[Hg] 90 mm[Hg] Not Available [facility] 4 14:16:32 Date Recorded Oxygen saturation Oxygen [...] Updated DateTime 2 96 % 96 % 25695.2 4 g 154.94 cm 97.4 [degF] 20 /min 130 /min 97.4 [degF] 96 % 96 % 130 /min 154.94 cm 43409.2 4 g 20 /min 128 mm[Hg] 84 mm[Hg] 128 mm[Hg] 84 mm[Hg] Not Available [employer] 2 17:44:08 Social History None recorded. Functional [...] [id number] Ray Goyal MD [facility] [address] [place] [phone] 01/13/2022 15:51:31 01/17/2022 16:23:27 Cough 44133982 R05.9 COVID, Flu, strep negative. No s/s of pneumonia or asthma exacerbati on. O2 sat normal. Supportive care. Tachycardia 5536944 R00. [address]-T wave changes. HR came down to 103 Hypokalemia 21217465 E87 .6 Repleted [place] 40 [place] [id number] Kiki Martinez MD [facility] [address] [place] [phone] 07/27/2023 18:07:29 07/28/2023 12:52:04 Weakness present 133809673 M62.81 [id number] Ray Goyal MD [facility] [address] [place] [phone] 10/14/2023 12:50:48 10/15/2023 21:01:10 Dysuria 30267063 R30.0 Recently treated with Macrobid (treated five days prior), now with worsening pain. Amenable to trying antibiotic prior to obtaining culture. Discussed red flag signs for which to seek higher level of care. [id number] Ray Goyal MD [facility] [address] [place] [phone] 11/30/2023 14:02:19 12/01/2023 13:01:16 COVID-19 [id number] U07.1 COVID positive. Flu negative. s/p vaccinatio [...] Lala Member ID Guarantor Name 01/13/2022 1 [facility] - DOS PRIOR TO 2022 - DUAL ELIGIBLE (MEDICARE REPLACEMENT/ADV ANTAGE - HMO) Miriam Oswaldo [id number] Miriam Gallardo Oswaldo 07/27/2023 1 [facility] - DOS ON OR AFTER 2022 - DUAL ELIGIBLE - [facility] OPT[facility] AND ONE CARE (MEDICARE REPLACEMENT/ADV ANTAGE - HMO) Miriam Oswaldo [id number] Miriam Lillyshahzad 10/14/2023 1 [facility] - DOS ON OR AFTER 2022 - DUAL ELIGIBLE - [facility] AND ONE CARE (MEDICARE REPLACEMENT/ADV ANTAGE - HMO) Miriam Lancasteranatoly [id number] Miriam Gallardo Oswaldo 11/30/2023 1 [facility] - DOS ON OR AFTER 2022 - DUAL ELIGIBLE - [facility] AND ONE CARE (MEDICARE REPLACEMENT/ADV ANTAGE - HMO) Miriam Lancasteranatoly [id number] Miriam Gallardo Oswaldo Notes Date Note Type Note Provider Name and Address Organization Details Recorded Time 01/13/2022 text/html HPI: Referral taken over the phone by members furnace caretaker. Member with cold like symptoms since Monday. Member c/o cough, congestion, fatigued and unable to sleep. Home covid test negative. CM unsure if member has phlegm, fever/chills or any hx of asthma/copd. Per CM member safe and stable to wait for an [facility] visit. ................... ................... ................... ................... ................... ................... ................... ........ CRC Nursing Assessment: Comments: CRC RN did not require any additional information to process this visit. ................... ................... ................... ................... ................... ................... ................... ........ Palliative Senior Np Note: Sent to a call for a [...] sample obtained; Urine dip: Results uploaded to [email or web address]; [facility] orders 12 lead ECG, Rapid Strep test, and POC CMP; Rapid strep: neg; blood sample obtained via venous blood draw; CMP results: potassium low; ECG results: uploaded to [email or web address]. [facility] orders Potassium 40meq PO; Potassium administered. Red flags discussed. Pt has no further questions. ................... ................... ................... ................... ................... ................... ................... ........ Disposition: Fulfilled Ray Goyal MD [address] [facility],[address], [place], [address], [email or web address] 01/13/2022 21:38:55 07/27/2023 text/html CRC Nurse Triage Notes (Loulou Pimentel): Chief Complaints: Weakness/Lethargy PMH: Hypertension, Other Comments: PMH: Hypothyroid, HIV Member was recently seen in the ED for bradycardia in the 50's. No interventions taken related to bradycardia. Member. Feeling weakness and fatigue over the last 2 days. Denies chest pain, shortness of breath or dizziness. Prescribed metoprolol daily for HTN. Unable reach [employer] today. HR 50's today. Reviewed RED flags. Instructed member to call 911 for worsening signs/symptoms. ................... ................... ................... ................... ................... ................... ................... ........ Palliative Senior Np Note From Renato Bangura: Pt co fatigue [...] RX metoprolol . Lungs clear no edema. [facility] contacted and advised pt to follow up with avionics system engineer and pcp. Pt education on signs indicating the ER. ................... ................... ................... ................... ................... ................... ................... ........ Disposition: Fulfilled Kiki Martinez MD [address] [facility],[address], [place], [address], [employer] 07/27/2023 18:47:44 10/14/2023 text/html CRC Nurse Triage [...] fever/chills. Member would like to be evaluated. Palliative Senior Np POC Test Results from Deyanira Guy Urine [...] ................... ................... ................... ................... ................... ................... ........ Palliative Senior Np Note From Deyanira Guy: Pt with two [...] up with pcp Monday, red flags reviewed. Palliative Senior Np Allergies: Cephalexin, Levofloxacin ................... ................... ................... ................... ................... ................... ................... ........ Disposition: Fulfilled Ray Goyal MD [address] [place] [address],[address], [place], [address], [email or web address] 10/14/2023 13:34:41 11/30/2023 text/html CRC Nurse Triage Notes (Loulou Pimentel): Reason For Request: Pt reporting cold like symptoms > unable to eat in 2 days>issues with her lower back>Legs and arms on the LEFT side are going numb Chief Complaints: Cough, Weakness/Lethargy, Pain PMH: Hypertension, HIV Allergies: Cephalexin, Levofloxacin Comments: Wind Turbine Installer verified the member's name//address and phone number. Cold symptoms since Monday. + cough, rhinnorhea, and fatigue. Denies fever. Exposed to boyfriend who was sick. Decreased appetite x2 days. Drinking fluids. c/o lower abdominal pain and increased bowel movement frequency. No diarrhea. Education provided on the response time and the member was advised to monitor reported s/s and seek emergency treatment if needed. Palliative Senior Np Organization Information for Obinna Sutton Business Legal Name: [employer]? Address: [address] [place] [id number], Outpatient Interviewing Clerk: Mark Velazquez MD [facility] No.: [id number] Palliative Senior Np POC Test Results from Obinna Sutton Rapid COVID antigen (15:27:55) COVID: + Rapid influenza antigen (15:27:56) Flu: - Urine Dipstick (15:36:39) Urine leukocytes: NR Urine nitrites: NR Urine urobilinogen: NR Urine protein: NR Urine pH: NR Urine blood: NR Urine specific gravity: NR Urine ketones: NR Urine bilirubin: NR Urine glucose: NR ................... ................... ................... ................... ................... ................... ................... ........ Palliative Senior Np Note From Obinna Sutton: Dispatched to the [...] -sob -dizziness -nvd -abd pain -blurred vision. [facility] contacted and ordered flu and covid test with U/A. Covid test was positive negative on flu and urine showed positive ketones and blood. [facility] ordered the patient Paxlovid [...] ........ Disposition: Fulfilled Ray Goyal MD [address] [facility],[address], [place], [address], [employer] 11/30/2023 16:52:34 OBGyn Episode No OBEpisode recorded.
--- OUTSIDE RECORDS SUMMARY | 2024-06-20 12:46 | XMS_ITS | Encounter Summary ---
Author Organization [facility] Address [address] [place] [address] Phone Care Team Providers Care Linseed Cake Trimmer Name Role Phone Kenroy Freeman NP Primary Care Provider [phone] Encounter Details Date Type Department Care Team (Late st Contact Info) Description 09/19/2022 Documentation Only [facility] [address] [id number] Tonya Wilson PA Social History Tobacco Use [...] Visit [facility] [address] [id number] Reginaldo Eagle MD [address] [place] [address] [place] [phone] documented as of this encounter Visit Diagnoses Not on filedocumented in this encounter Care Teams Linseed Cake Trimmer Relationship Specialty Start Date End Date Kenroy Freeman NP [address] [place] [address] PCP - General Nurse Practitioner 11/15/19 documented as of this encounter
--- OUTSIDE RECORDS SUMMARY | 2024-06-20 12:46 | XMS_ITS | Encounter Summary ---
Author Organization [facility] Address [address] [place] [address] Phone Care Team Providers Care Brim Stitcher Name Role Phone Kenroy Freeman NIRALI Primary Care Provider [phone] Encounter Details Date Type Department Care Team (Late st Contact Info) Description 05/13/2021 Documentation Only [facility] [address] [place] [address] Jose Martin Mccall MD [address] [facility] [address] [facility] [place] [address] Social History Tobacco Use Types [...] Visit [facility] [address] [place] [address] Reginaldo Eagle MD [address] [facility] [address] [place] [address] documented as of this encounter Visit Diagnoses Not on filedocumented in this encounter Care Teams Brim Stitcher Relationship Specialty Start Date End Date Kenroy Freeman NP [facility] [place] [address] PCP - General Nurse Practitioner 11/15/19 documented as of this encounter
--- OUTSIDE RECORDS SUMMARY | 2024-06-20 12:46 | XMS_ITS | Encounter Summary ---
Author Organization [facility] Address [address] [place] [address] Phone Care Team Providers Care Blending Machine Feeder Name Role Phone Kenroy Freeman NIRALI Primary Care Provider [phone] Encounter Details Date Type Department Care Team (Late st Contact Info) Description 09/27/2021 Documentation Only [facility] [address] [place] [address] Jose Martin Mccall MD [address] [place] [address] Social History Tobacco Use Types [...] [facility] [address] [place] [address] Reginaldo Eagle MD [address] [address] [facility] [place] [address] documented as of this encounter Visit Diagnoses Not on filedocumented in this encounter Care Teams Blending Machine Feeder Relationship Specialty Start Date End Date Kenroy Freeman NP [facility] [place] [address] PCP - General Nurse Practitioner 11/15/19 documented as of this encounter
--- OUTSIDE RECORDS SUMMARY | 2024-06-20 12:46 | XMS_ITS | Encounter Summary ---
Author Organization [facility] Address [address] [place] [address] Phone Care Team Providers Care Tin Assorter Name Role Phone Kenroy Freeman NIRALI Primary Care Provider [phone] Encounter Details Date Type Department Care Team (Late st Contact Info) Description 08/18/2021 Documentation Only [facility] [address] [place] [address] Jose Martin Mccall MD [address] [facility] [place] [address] Social History Tobacco Use Types [...] [facility] [address] [place] [address] Reginaldo Eagle MD [address] [facility] [place] [address] documented as of this encounter Visit Diagnoses Not on filedocumented in this encounter Care Teams Tin Assorter Relationship Specialty Start Date End Date Kenroy Freeman NP [facility] [place] [address] PCP - General Nurse Practitioner 11/15/19 documented as of this encounter
--- OUTSIDE RECORDS SUMMARY | 2024-06-20 12:46 | XMS_ITS | Encounter Summary ---
Author Organization [facility] Address [address] [place] [address] Phone Care Team Providers Care Terrazzo Worker Helper Name Role Phone Kenroy Freeman NIRALI Primary Care Provider [phone] Encounter Details Date Type Department Care Team (Late st Contact Info) Description 03/20/2024 Documentation Only [facility] [address] [place] [address] Reanna Goyal [address] [place] [address] Social History Tobacco Use Types [...] [facility] [address] [place] [address] Reginaldo Eagle MD [address] [place] [address] documented as of this encounter Visit Diagnoses Not on filedocumented in this encounter Care Teams Terrazzo Worker Helper Relationship Specialty Start Date End Date Kenroy Freeman NP [facility] [place] [address] PCP - General Nurse Practitioner 11/15/19 documented as of this encounter
--- OUTSIDE RECORDS SUMMARY | 2024-06-20 12:46 | XMS_ITS | Encounter Summary ---
Author Organization [facility] Address [address] [place] [address] Phone Care Team Providers Care Python Architect Name Role Phone Kenroy Freeman NIRALI Primary Care Provider [phone] Encounter Details Date Type Department Care Team (Late st Contact Info) Description 06/02/2023 Documentation Only [facility] [address] [place] [address] Reanna Goyal [address] [place] [address] Social History Tobacco Use Types [...] [facility] [address] [place] [address] Reginaldo Eagle MD [address] [facility] [address] [place] [address] documented as of this encounter Visit Diagnoses Not on filedocumented in this encounter Care Teams Python Architect Relationship Specialty Start Date End Date Kenroy Freeman NP [place] [address] PCP - General Nurse Practitioner 11/15/19 documented as of this encounter
--- OUTSIDE RECORDS SUMMARY | 2024-06-20 12:46 | XMS_ITS | Encounter Summary ---
Author Organization [facility] Address [address] [place] [address] Phone Care Team Providers Care Manufacturer Representative Name Role Phone Kenroy Freeman NIRALI Primary Care Provider [phone] Encounter Details Date Type Department Care Team (Late st Contact Info) Description 08/18/2021 Documentation Only [facility] [address] [facility] [place] [place] [address] Jose Martin Mccall MD [address] [facility] [place] [address] Social History Tobacco Use Types [...] Visit [facility] [address] [place] [address] Reginaldo Eagle MD [address] [facility] [place] [address] documented as of this encounter Visit Diagnoses Not on filedocumented in this encounter Care Teams Manufacturer Representative Relationship Specialty Start Date End Date Kenroy Freeman NP [facility] [place] [address] PCP - General Nurse Practitioner 11/15/19 documented as of this encounter
--- OUTSIDE RECORDS SUMMARY | 2024-06-20 12:46 | XMS_ITS | Clinical Summary ---
Author Organization [facility] [place], Address [address] [place] [address] [place] [address] Phone Care Team Providers Care Meter Mechanic Name Role Phone Kenroy Freeman NP Primary Care Provider [phone] Allergies Active Allergy Reactions Criticality Noted Date [...] MG tablet TK 1 T PO QD 04/05/20 19 Active cyanocobalamin (VITAMIN B-12) 1000 MCG/ML injection INJECT 1ML ONCE A MONTH 01/21/20 19 Active metoprolol succinate XL (TOPROL-XL) 100 MG 24 hr tablet Take 100 mg by mouth 1 (one) time each day 01/21/20 19 Active NIFEdipine XL (PROCARDIA XL) 30 MG 24 hr tablet Take 30 mg by mouth 1 (one) time each day 04/12/20 19 Active levothyroxine sodium (TIROSINT) 112 MCG capsule [...] by mouth 1 (one) time each day 08/31/19 Active levothyroxine (SYNTHROID, LEVOTHROID) 100 MCG tablet Take 100 mcg by mouth 1 (one) time each day 09/14/19 22 Active NIFEdipine CC (ADALAT CC) 30 MG 24 hr tablet Take 30 mg by mouth 1 (one) time each day 07/20/19 22 Active sulfamethoxazo le-trimethopri m 800-160 MG per tablet TAKE 1 TABLET BY MOUTH TWICE DAILY FOR 3 DAYS 08/19/19 22 Active Praluent 75 MG/ML solution auto-injector 75 MG SUBCUTANEOUSLY EVERY 2 WEEKS FOR 90 DAYS 04/14/20 23 Active Cholecalcifero l 50 MCG (1999) capsule Take 1 capsule by mouth 1 (one) time each day 90 capsule 3 03/20/20 24 025 Active Problems Problem Noted Date Diagnosed Date [...] 04/22/2019 11/27/2020 Vitamin D deficiency 04/22/2019 021 Immunizations Name Administration Dates Next Due H1N1 [...] Visit [facility] [address] [address] Reginaldo Eagle MD [address] [place] [address] Health Maintenance Due Date Last Done Comments [...] Influenza Vaccine (#1) 2023 01/31/[address] [place] [id number] [facility] ONE CARE DUAL SNP ([id number]) ODAL[place] CACERES [id number] [place] [id number] [place] [address] Care Teams Meter Mechanic Relationship Specialty Start Date End Date Kenroy Freeman NP [address] [place] [address] PCP - General Nurse Practitioner 11/15/19
--- OUTSIDE RECORDS SUMMARY | 2024-06-20 12:46 | XMS_ITS | Encounter Summary ---
Author Organization [facility] Address [address] [place] [address] Phone Care Team Providers Care Weight Shifter Name Role Phone Kenroy Freeman NP Primary Care Provider [phone] Encounter Details Date Type Department Care Team (Late st Contact Info) Description 03/01/2021 Documentation Only [facility] [address] [place] [phone] Falguni Whitney PA Social History Tobacco Use [...] [facility] [address] [place] [phone] Reginaldo Eagle MD [address] [place] [address] [place] [phone] documented as of this encounter Visit Diagnoses Not on filedocumented in this encounter Care Teams Weight Shifter Relationship Specialty Start Date End Date Kenroy Freeman NP [address] [place] [address] PCP - General Nurse Practitioner 11/15/19 documented as of this encounter
== END 2024-06-20 11:03 | disposition home or self-care (01) ==
PROVIDERS: PCP Nurse Practitioner Family; Visit Provider Internal Medicine
DX: I25.10 Atherosclerotic heart disease of native coronary artery without angina pectoris (principal); I10 Essential (primary) hypertension; E78.5 Hyperlipidemia, unspecified; E66.01 Morbid (severe) obesity due to excess calories; G47.33 Obstructive sleep apnea (adult) (pediatric)
CPT/HCPCS: 93010; 99214; G2211

== ENCOUNTER → 2024-06-20 10:40 | Outpatient (BNVA) | payer OTHER, SELFPAY | PROVIDERS: PCP Nurse Practitioner Family; Visit Provider Internal Medicine | DX: I25.10 Atherosclerotic heart disease of native coronary artery without angina pectoris (principal); I10 Essential (primary) hypertension; E78.5 Hyperlipidemia, unspecified; E66.01 Morbid (severe) obesity due to excess calories; G47.33 Obstructive sleep apnea (adult) (pediatric); Z68.41 Body mass index [BMI] 40.0-44.9, adult; Z99.89 Dependence on other enabling machines and devices | CPT/HCPCS: 93005; 99212 ==

== ENCOUNTER 2024-07-03 08:50 | Outpatient (AMB) | payer OTHER, SELFPAY ==
--- NOTE | 2024-07-03 09:01 | MHC.OFFVIS ---
Vital Signs 07/03/24 09:02 Height 5 ft 1 in Weight 224 lb BMI 42.3 Intake Visit Reasons: Colpo results Machinist Instructor Required: No Information Interpreted: non-clinical & clinical Accompanied by: Self / Same As Patient Allergies amlodipine [AMLODIPINE] Allergy (Unknown, Verified 07/03/24 09:02) RASH cephalexin [From KEFLEX] Allergy (Unknown, Verified 07/03/24 09:02) RASH levofloxacin [From LEVAQUIN] Allergy (Unknown, Verified 07/03/24 09:02) RASH Post menopausal: Yes HPI Comments Details: Presenting post colpo for follow-up. The patient is doing well with no complaints. The pathology showed the following: A. Cervix, 5:00, biopsy: Squamous mucosa; negative for dysplasia; no endocervical glandular component present. B. Cervix, 12:00, biopsy: Squamous mucosa; negative for dysplasia; no endocervical glandular component present. C. Endocervix, curettage: Squamous mucosa; negative for dysplasia; no endocervical glandular component present COUNT INCLUDES THE [facility] Medical History 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 Anxiety Chronic kidney disease, stage 2 (mild) Morbid obesity Other and unspecified hyperlipidemia Essential hypertension Atherosclerotic cardiovascular disease Pituitary microadenoma Vitamin D deficiency Graves disease Post-surgical hypothyroidism Osteoarthritis GERD (gastroesophageal reflux disease) Leukopenia Cervical radiculitis Lumbar radiculopathy Pernicious anemia Obstructive sleep apnea Raynaud's phenomenon Pituitary microadenoma 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 Mother Stroke Sister Diabetes mellitus Maternal Grandmother Unknown family medical history Brother Cancer Sister No problems noted. Brother No problems noted. Daughter Healthy female Social History Housing: Apartment Are you a primary client care consultant to a significant other at home: No Do you presently have visiting nurse or other home services: No Alcohol intake: current Alcohol intake frequency: holidays/special occasions only Patient Tobacco Use Status: Never used Tobacco e-Cigarette/Vaping Use: Never Used Second Hand Smoke Exposure: No Current occupational status: disabled Cognitive needs: No Hearing needs: No Vision needs: No Female Reproductive History Menstrual Age of Menarche: 13 Review of Systems Const All systems reviewed & are unremarkable except as noted in HPI and below Reports as per HPI and Reports no additional complaints GI Reports no additional complaints Reports no additional complaints Assessment & Plan Assessment & Plan (1) ASCUS with positive high risk HPV cervical: Code(s): R87.610 - Atypical squamous cells of undetermined significance on cytologic smear of cervix (ASC-US); R87.810 - Cervical high risk human papillomavirus (HPV) DNA test positive Category: Medical Plan: Discussed with the patient the pathology results of the colposcopy biopsies & endocervical curettage ( negative). Discussed with the patient the sensitivity specificity, positive and negative predictive value in detecting cervical cancer in addition discussed the regression, persistence and progression rates. Recommended co-testing in 12 months, if cytology and or HPV are abnormal will proceed was colposcopy biopsy and endocervical curettage. Instructions given to the patient to schedule a co test appointment in 1 year. All questions answered the patient verbalized understanding. Coding Level of Care Code Est Pt Level 3 (96435) Diagnoses ASCUS with positive high risk HPV cervical R87.610; R87.810
[2024-07-03 09:02] VITALS: BMI 42.3
--- OUTSIDE RECORDS SUMMARY | 2024-07-03 09:42 | XMS_ITS | Encounter Summary ---
Author Organization [facility] Address [address] [place] [address] Phone Care Team Providers Care Learning Center Instructor Name Role Phone Kenroy Freeman NP Primary Care Provider [phone] Encounter Details Date Type Department Care Team (Late st Contact Info) Description 09/19/2022 Documentation Only [facility] [address] [place] [phone] Tonya Wilson PA Social History Tobacco Use [...] Visit [facility] [address] [place] [phone] Reginaldo Eagle MD [address] [place] [address] [place] [phone] documented as of this encounter Visit Diagnoses Not on filedocumented in this encounter Care Teams Learning Center Instructor Relationship Specialty Start Date End Date Kenroy Freeman NP [address] [place] [address] PCP - General Nurse Practitioner 11/15/19 documented as of this encounter
--- OUTSIDE RECORDS SUMMARY | 2024-07-03 09:42 | XMS_ITS | Encounter Summary ---
Author Organization [facility] Address [address] [place] [address] Phone Care Team Providers Care Land Development Project Manager Name Role Phone Kenroy Freeman NIRALI Primary Care Provider [phone] Encounter Details Date Type Department Care Team (Late st Contact Info) Description 08/18/2021 Documentation Only [facility] [address] [place] [address] Jose Martin Mccall MD [address] [place] [address] Social History Tobacco Use Types [...] Visit [facility] [address] [place] [address] Reginaldo Eagle MD [address] [place] [address] documented as of this encounter Visit Diagnoses Not on filedocumented in this encounter Care Teams Land Development Project Manager Relationship Specialty Start Date End Date Kenroy Freeman NP [facility] [place] [address] PCP - General Nurse Practitioner 11/15/19 documented as of this encounter
--- OUTSIDE RECORDS SUMMARY | 2024-07-03 09:42 | XMS_ITS | Encounter Summary ---
Author Organization [facility] Address [address] [place] [address] Phone Care Team Providers Care Rn Cardiac Cath Name Role Phone Kenroy Freeman NIRALI Primary Care Provider [phone] Encounter Details Date Type Department Care Team (Late st Contact Info) Description 08/18/2022 Documentation Only [facility] [address] [place] [address] [place], [place] [address] [place] [address] Social History Tobacco Use Types [...] Visit [facility] [address] [place] [address] Reginaldo Eagle MD [address] [place] [address] documented as of this encounter Visit Diagnoses Not on filedocumented in this encounter Care Teams Rn Cardiac Cath Relationship Specialty Start Date End Date Kenroy Freeman NP [place] [address] PCP - General Nurse Practitioner 11/15/19 documented as of this encounter
--- OUTSIDE RECORDS SUMMARY | 2024-07-03 09:42 | XMS_ITS | Encounter Summary ---
Author Organization [facility] Address [address] [place] [address] Phone Care Team Providers Care Stage Settings Painter Name Role Phone Kenroy Freeman NIRALI Primary Care Provider [phone] Encounter Details Date Type Department Care Team (Late st Contact Info) Description 03/20/2024 Documentation Only [facility] [address] [place] [address] Reanna Goyal [address] [place] [address] Social History Tobacco Use Types [...] Visit [facility] [address] [place] [place] [address] Reginaldo Eagle MD [address] [place] [address] documented as of this encounter Visit Diagnoses Not on filedocumented in this encounter Care Teams Stage Settings Painter Relationship Specialty Start Date End Date Kenroy Freeman NP [place] [address] PCP - General Nurse Practitioner 11/15/19 documented as of this encounter
--- OUTSIDE RECORDS SUMMARY | 2024-07-03 09:42 | XMS_ITS | Encounter Summary ---
Author Organization [facility] Address [address] [place] [address] Phone Care Team Providers Care Marble And Granite Polisher Name Role Phone Kenroy Freeman NP Primary Care Provider [phone] Encounter Details Date Type Department Care Team (Late st Contact Info) Description 08/08/2022 Documentation Only [facility] [address] [place] [address] Tonya Wilson PA Social History Tobacco Use [...] [facility] [address] [place] [address] Reginaldo Eagle MD [address] [place] [address] [place] [phone] documented as of this encounter Visit Diagnoses Not on filedocumented in this encounter Care Teams Marble And Granite Polisher Relationship Specialty Start Date End Date Kenroy Freeman NP [address] [place] [address] PCP - General Nurse Practitioner 11/15/19 documented as of this encounter
--- OUTSIDE RECORDS SUMMARY | 2024-07-03 09:42 | XMS_ITS | Encounter Summary ---
Author Organization [facility] Address [address] [place] [address] Phone Care Team Providers Care Technical Manager Name Role Phone Kenroy Freeman NIRALI Primary Care Provider Encounter Details Date Type Department Care Team (Late st Contact Info) Description 09/27/2021 Documentation Only [facility] [address] [place] [address] Jose Martin Mccall MD [address] [facility] [address] [place] [address] Social History Tobacco Use Types [...] [facility] [address] [place] [address] Reginaldo Eagle MD [address] [facility] [address] [place] [address] documented as of this encounter Visit Diagnoses Not on filedocumented in this encounter Care Teams Technical Manager Relationship Specialty Start Date End Date Kenroy Freeman NP [facility] [place] [address] PCP - General Nurse Practitioner 11/15/19 documented as of this encounter
--- OUTSIDE RECORDS SUMMARY | 2024-07-03 09:42 | XMS_ITS | Encounter Summary ---
Author Organization [facility] Address [address] [place] [address] Phone Care Team Providers Care Flash Ranging Crewmember Name Role Phone Kenroy Freeman NIRALI Primary Care Provider [phone] Encounter Details Date Type Department Care Team (Late st Contact Info) Description 06/01/2023 Documentation Only [facility] [address] [place] [address] Deya Chowdhury [address] [place] [address] Social History Tobacco Use Types [...] Visit [facility] [address] [place] [address] Reginaldo Eagle MD [address] [place] [address] [place] [address] documented as of this encounter Visit Diagnoses Not on filedocumented in this encounter Care Teams Flash Ranging Crewmember Relationship Specialty Start Date End Date Kenroy Freeman NP [facility] [place] [address] PCP - General Nurse Practitioner 11/15/19 documented as of this encounter
--- OUTSIDE RECORDS SUMMARY | 2024-07-03 09:42 | XMS_ITS | Clinical Summary ---
Author Organization [facility] Address [address] [place] [address] Care Team Providers Care Massage Operator Name Role Phone Unavailable Primary Care [...]
--- OUTSIDE RECORDS SUMMARY | 2024-07-03 09:42 | XMS_ITS | Encounter Summary ---
Author Organization [facility] Address [address] [place] [address] Phone Care Team Providers Care Field Mechanic Name Role Phone Kenroy Freeman NIRALI Primary Care Provider Encounter Details Date Type Department Care Team (Late st Contact Info) Description 08/18/2021 Documentation Only [facility] [address] [place] [address] Jose Martin Mccall MD [address] [place] [address] Social History Tobacco Use Types [...] Of [facility] [address] [place] [address] Reginaldo Eagle MD [address] [facility] [place] [address] documented as of this encounter Visit Diagnoses Not on filedocumented in this encounter Care Teams Field Mechanic Relationship Specialty Start Date End Date Kenroy Freeman NP [place] [address] PCP - General Nurse Practitioner 11/15/19 documented as of this encounter
--- OUTSIDE RECORDS SUMMARY | 2024-07-03 09:42 | XMS_ITS | Encounter Summary ---
Author Organization [facility] Address [address] [place] [address] Phone Care Team Providers Care Putty Tinter Maker Name Role Phone Kenroy Freeman NIRALI Primary Care Provider [phone] Encounter Details Date Type Department Care Team (Late st Contact Info) Description 10/13/2021 Documentation Only [facility] [address] [place] [address] Jose Martin Mccall MD [address] [facility] [place] [address] Social History Tobacco Use Types [...] Visit [facility] [address] [place] [address] Reginaldo Eagle MD [address] [facility] [place] [address] documented as of this encounter Visit Diagnoses Not on filedocumented in this encounter Care Teams Putty Tinter Maker Relationship Specialty Start Date End Date Kenroy Freeman NP [facility] [address] PCP - General Nurse Practitioner 11/15/19 documented as of this encounter
--- OUTSIDE RECORDS SUMMARY | 2024-07-03 09:42 | XMS_ITS | Encounter Summary ---
Author Organization [facility] Address [address] [place] [address] Phone Care Team Providers Care Client Service Consultant Name Role Phone Kenroy Freeman NIRALI Primary Care Provider [phone] Encounter Details Date Type Department Care Team (Late st Contact Info) Description 06/02/2023 Documentation Only [facility] [address] [place] [address] Reanna Goyal [address] [place] [address] Social History Tobacco Use Types [...] Visit [facility] [address] [place] [address] Reginaldo Eagle MD [address] [address] [place] [address] documented as of this encounter Visit Diagnoses Not on filedocumented in this encounter Care Teams Client Service Consultant Relationship Specialty Start Date End Date Kenroy Freeman NP [facility] [place] [address] PCP - General Nurse Practitioner 11/15/19 documented as of this encounter
--- OUTSIDE RECORDS SUMMARY | 2024-07-03 09:42 | XMS_ITS | Clinical Summary ---
Author Organization [facility] [place], Address [address] [place] [address] [place] [address] Phone Care Team Providers Care Pin Attacher Name Role Phone Kenroy Freeman NP Primary Care Provider [phone] Allergies Active Allergy Reactions Criticality Noted Date [...] Medical History Relation Comments Heart disease Father [place] Stroke Father Hypertension Mother Cancer Sibling 1 [...] Visit [facility] [address] [address] Reginaldo Eagle MD [address] [address] [place] [address] Health Maintenance Due Date Last Done Comments [...] Influenza Vaccine (#1) 2023 01/31/[address] [place] [id number] [facility] ONE CARE DUAL SNP ([id number]) [place] [id number] [place] [id number] [address] [place] [address] Care Teams Pin Attacher Relationship Specialty Start Date End Date Kenroy Freeman NP [address] [place] [address] PCP - General Nurse Practitioner 11/15/19
--- OUTSIDE RECORDS SUMMARY | 2024-07-03 09:42 | XMS_ITS | Data Portability ---
Author Organization [facility], [place] [facility] Address [address] [place] [phone] Care Team Providers Care Force Variation Equipment Tender Name Role Phone KATHY TEIXEIRA Primary Care Provider HIM CCA OTHER Assessment Encounter Date Assessment Date Assessment LastModified by Organization Details LastModified Time 07/27/2023 07/27/2023 As noted, we were called to see this patient regarding concerns of weakness. Evaluation in the field was performed by my ip technology transactions attorney colleague, as noted above, I provided real-time [...] QL IA, respiratory specimen 2023 024 [place] [facility], [address] [place] [address], [place], [phone], 08/15/202 4 20:47:12 rapid flu (A+B) 2023 024 [place] [facility], [address] [place] [address], [id number], 4 20:47:49 culture, urine 2023 024 [email or web address], [address], [place], [place], [address], 09:51:23 urinalysis, dipstick 2023 024 [facility] [address] [place] [address], [phone], 15:29:52 rapid flu (A+B) 2021 022 [email or web address] [facility], [address] [place] [address], [id number], 2 21:38:31 rapid SARS CoV 2 Ag, QL IA, respiratory specimen 2021 022 [email or web address] [facility], [address] [place] [address], [id number], 2 21:38:31 rapid strep group A, throat 2021 022 [email or web address] [facility], [address] [place] [address], [id number], 2 21:38:31 Referral None recorded. Procedures None recorded. Surgeries None recorded. Imaging None recorded. Medication Orders Paxlovid 300 mg (150 mg x 2)-100 mg tablets in a dose pack 2023 024 [id number], [address] [place], [place], [id number], 14:35:21 Bactrim DS 800 mg-160 mg tablet 2023 024 [place] [id number], [address] [place], [place], [id number], 4 13:03:33 potassium chloride ER 20 mEq [...] ts at testd irect ory.q uestd iagno [employer] .com Not Available [facility] [place] [facility] [address], [place], [address], 10/23/2023 15:48:24 10/23/19 24 10/23/2023 SPECI MEN [...] Patho logis ts (CAP) . Not Available [facility] [place] [facility] [address], [place], [address], 10/23/2023 15:48:25 10/23/19 24 10/23/2023 PATIE NT ID APPRO EDISON TIQ DOCUM ENTAT ION comment Ident ifica tion of test requi sitio n and/o r speci men(s ) was quest ionab le. The below named indiv idual provi ded this burton ed patie nt ident ifica tion. Not Available [facility] [place] [facility] [address] [place], [place], [address], 10/23/2023 15:48:25 10/23/19 24 10/23/2023 PATIE NT ID APPRO EDISON TIQ DOCUM ENTAT ION contact FAX Not Available [facility] [place] [facility] [address] [place], [place], [address], 10/23/2023 15:48:25 10/23/19 24 10/23/2023 PATIE NT ID APPRO EDISON TIQ DOCUM ENTAT ION tests affected 395 Not Available [facility] [place] [facility] [address] [place], [place], [address], 10/23/2023 15:48:25 10/23/19 24 10/23/2023 CULTU RE, URINE , ROUTI NE culture, urine, routine SEE NOTE CULTU RE, URINE , ROUTI NE Micro Numbe r: [id number] Test Statu s: Final Speci men [...] [facility] t [facility]: Faxed to: [phone] on: 10/19 18:29 NO COLLE CTION DATE RECEI ANJANA. WE HAVE USED THE DATE THE SPECI MEN WAS RECEI ANJANA BY THIS LABOR ATORY THE COLLE CTION DATE. IF THIS IS INCOR RECT, PLEAS E CONTA CT CLIEN T SERVI JUANY. PHONE NUMBE R: [phone] Not Available [facility] [place] [facility] [address], [place], [address], 10/23/2023 15:48:26 01/14/20 22 01/13/2022 rapid strep group A, throa t Strep negati ve Not Available [facility] ed [address] [place] [address], [phone], 01/13/2022 21:37:04 01/14/20 22 01/13/2022 rapid SARS CoV 2 Ag, QL IA, respi rator y speci men rapid SARS CoV 2 Ag, QL IA, respiratory specimen negati ve Not Available [facility] ed [address] [place] [address], [id number], 01/13/2022 21:37:00 01/14/20 22 01/13/2022 rapid flu (A+B) Flu negati ve Not Available [facility] ed [address] [place] [address], [phone], 01/13/2022 21:36:59 Result Notes None recorded. Medical [...] Not available Not available Not available 02/13/2024 53110 RxNorm Not Available [facility] - production 4 [...] ONCE DIRECTED BY [facility] active Not Available Not Available No t [...] Updated DateTime 4 18 /min 96.9 [degF] 679613. 2 g 100 % 100 % 70 /min 172 mm[Hg] 104 mm[Hg] Not Available [facility] [employer] production 4 18:07:31 Date Recorded Respiratory rate Oxygen saturation Oxygen saturation in Arterial blood by Pulse oximetry Heart rate Body temperature Systolic blood pressure Diastolic blood pressure Provider Name and Address Organization Details Last Updated DateTime 4 18 /min 99 % 99 % 82 /min 97.4 [degF] 132 mm[Hg] 82 mm[Hg] Not Available [facility] 4 12:54:21 Date Recorded Oxygen saturation Oxygen saturation in Arterial blood by Pulse oximetry Heart rate Respiratory rate Body temperature Systolic blood pressure Diastolic blood pressure Provider Name and Address Organization Details Last Updated DateTime 4 95 % 95 % 110 /min 20 /min 98.1 [degF] 130 mm[Hg] 90 mm[Hg] Not Available [employer] 4 14:16:32 Date Recorded Oxygen saturation Oxygen [...] Updated DateTime 2 96 % 96 % 60315.2 4 g 154.94 cm 97.4 [degF] 20 /min 130 /min 97.4 [degF] 96 % 96 % 130 /min 154.94 cm 15721.2 4 g 20 /min 128 mm[Hg] 84 mm[Hg] 128 mm[Hg] 84 mm[Hg] Not Available [employer]. 2 17:44:08 Social History None recorded. Functional [...] [id number] Ray Goyal MD [facility] [address] [place] [phone] 01/13/2022 15:51:31 01/17/2022 16:23:27 Cough 80569116 R05.9 COVID, Flu, strep negative. No s/s of pneumonia or asthma exacerbati on. O2 sat normal. Supportive care. Tachycardia 9377097 R00. [address]-T wave changes. HR came down to 103 Hypokalemia 99623960 E87 .6 [place] 40 [place] [id number] Kiki Martinez MD [facility] [address] [place] [phone] 07/27/2023 18:07:29 07/28/2023 12:52:04 Weakness present 399510854 M62.81 [id number] Ray Goyal MD [facility] [address] [place] [phone] 10/14/2023 12:50:48 10/15/2023 21:01:10 Dysuria 62881411 R30.0 Recently treated with Macrobid (treated five days prior), now with worsening pain. Amenable to trying antibiotic prior to obtaining culture. Discussed red flag signs for which to seek higher level of care. [id number] Ray Goyal MD [facility] [address] [place] [phone] 11/30/2023 14:02:19 12/01/2023 13:01:16 COVID-19 157659152 U07.1 COVID positive. Flu negative. s/p vaccinatio [...] Lala Member ID Guarantor Name 01/13/2022 1 [facility] - DOS PRIOR TO 2022 - DUAL ELIGIBLE (MEDICARE REPLACEMENT/ADV ANTAGE - HMO) Miriam Oswaldo [id number] Miriam Gallardo Oswaldo 07/27/2023 1 [facility] - DOS ON OR AFTER 2022 - DUAL ELIGIBLE - DETENTION OPTIONS AND ONE CARE (MEDICARE REPLACEMENT/ADV ANTAGE - HMO) Miriam Oswaldo [id number] Miriam Lillyshahzad 10/14/2023 1 [facility] - DOS ON OR AFTER 2022 - DUAL ELIGIBLE - DETENTION OPTIONS AND ONE CARE (MEDICARE REPLACEMENT/ADV ANTAGE - HMO) Miriam Lancasteranatoly [id number] Miriam Gallardo Oswaldo 11/30/2023 1 [facility] - DOS ON OR AFTER 2022 - DUAL ELIGIBLE - DETENTION OPTIONS AND ONE CARE (MEDICARE REPLACEMENT/ADV ANTAGE - HMO) Miriam Lancasteranatoly [id number] Miriam Gallardo Oswaldo Notes Date Note Type Note Provider Name and Address Organization Details Recorded Time 01/13/2022 text/html HPI: Referral taken over the phone by members home care aide. Member with cold like symptoms since Monday. Member c/o cough, congestion, fatigued and unable to sleep. Home covid test negative. CM unsure if member has phlegm, fever/chills or any hx of asthma/copd. Per CM member safe and stable to wait for an [facility] visit. ................... ................... ................... ................... ................... ................... ................... ........ CRC Nursing Assessment: Comments: CRC RN did not require any additional information to process this visit. ................... ................... ................... ................... ................... ................... ................... ........ Household Appliance Mechanic Note: Sent to a call for a [...] sample obtained; Urine dip: Results uploaded to [employer]; [facility] orders 12 lead ECG, Rapid Strep test, and POC CMP; Rapid strep: neg; blood sample obtained via venous blood draw; CMP results: potassium low; ECG results: uploaded to [employer]. [facility] orders Potassium 40meq PO; Potassium administered. Red flags discussed. Pt has no further questions. ................... ................... ................... ................... ................... ................... ................... ........ Disposition: Fulfilled Ray Goyal MD [address] [facility],[address], [place], [address], [employer] 01/13/2022 21:38:55 07/27/2023 text/html CRC Nurse Triage Notes (Loulou Pimentel): Chief Complaints: Weakness/Lethargy PMH: Hypertension, Other Comments: PMH: Hypothyroid, HIV Member was recently seen in the ED for bradycardia in the 50's. No interventions taken related to bradycardia. Member. Feeling weakness and fatigue over the last 2 days. Denies chest pain, shortness of breath or dizziness. Prescribed metoprolol daily for HTN. Unable reach Aerospace Mechanic today. HR 50's today. Reviewed RED flags. Instructed member to call 911 for worsening signs/symptoms. ................... ................... ................... ................... ................... ................... ................... ........ Household Appliance Mechanic Note From Renato Bangura: Pt co fatigue [...] RX metoprolol . Lungs clear no edema. [facility] contacted and advised pt to follow up with field recorder and pcp. Pt education on signs indicating the ER. ................... ................... ................... ................... ................... ................... ................... ........ Disposition: Fulfilled Kiki Martinez MD [address] [facility],[address], [place], [address], [employer] 07/27/2023 18:47:44 10/14/2023 text/html CRC Nurse Triage [...] fever/chills. Member would like to be evaluated. Household Appliance Mechanic POC Test Results from Deyanira Guy Urine [...] ................... ................... ................... ................... ................... ................... ........ Household Appliance Mechanic Note From Deyanira Guy: Pt with two [...] up with pcp Monday, red flags reviewed. Household Appliance Mechanic Allergies: Cephalexin, Levofloxacin ................... ................... ................... ................... ................... ................... ................... ........ Disposition: Fulfilled Ray Goyal MD [address] [place] [address],[address], [place], [address], [employer] 10/14/2023 13:34:41 11/30/2023 text/html CRC Nurse Triage Notes (Loulou Pimentel): Reason For Request: Pt reporting cold like symptoms > unable to eat in 2 days>issues with her lower back>Legs and arms on the LEFT side are going numb Chief Complaints: Cough, Weakness/Lethargy, Pain PMH: Hypertension, HIV Allergies: Cephalexin, Levofloxacin Comments: Casino Supervisor verified the member's name//address and phone number. Cold symptoms since Monday. + cough, rhinnorhea, and fatigue. Denies fever. Exposed to boyfriend who was sick. Decreased appetite x2 days. Drinking fluids. c/o lower abdominal pain and increased bowel movement frequency. No diarrhea. Education provided on the response time and the member was advised to monitor reported s/s and seek emergency treatment if needed. Household Appliance Mechanic Organization Information for Obinna Sutton Business Legal Name: [employer]? Address: [address] [place] [address], Enrolled Nurse: Mark Velazquez MD [facility] No.: [id number] Household Appliance Mechanic POC Test Results from Obinna Sutton Rapid COVID antigen (15:27:55) COVID: + Rapid influenza antigen (15:27:56) Flu: - Urine Dipstick (15:36:39) Urine leukocytes: NR Urine nitrites: NR Urine urobilinogen: NR Urine protein: NR Urine pH: NR Urine blood: NR Urine specific gravity: NR Urine ketones: NR Urine bilirubin: NR Urine glucose: NR ................... ................... ................... ................... ................... ................... ................... ........ Household Appliance Mechanic Note From Obinna Sutton: Dispatched to the [...] -sob -dizziness -nvd -abd pain -blurred vision. [facility] contacted and ordered flu and covid test with U/A. Covid test was positive negative on flu and urine showed positive ketones and blood. [facility] ordered the patient Paxlovid to her pharmacy [...] ........ Disposition: Fulfilled Ray Goyal MD [address] [facility],[address], [place], [address], [employer] 11/30/2023 16:52:34 OBGyn Episode No OBEpisode recorded.
--- OUTSIDE RECORDS SUMMARY | 2024-07-03 09:43 | XMS_ITS | Encounter Summary ---
Author Organization [facility] Address [address] [place] [address] Phone Care Team Providers Care Marine Fisheries Technician Name Role Phone Kenroy Freeman NP Primary Care Provider [phone] Encounter Details Date Type Department Care Team (Late st Contact Info) Description 03/01/2021 Documentation Only [facility] [address] [place] [phone] Falguni Whitney PA Social History Tobacco Use [...] [facility] [address] [place] [phone] Reginaldo Eagle MD [address] [place] [address] [place] [phone] documented as of this encounter Visit Diagnoses Not on filedocumented in this encounter Care Teams Marine Fisheries Technician Relationship Specialty Start Date End Date Kenroy Freeman NP [address] [place] [address] PCP - General Nurse Practitioner 11/15/19 documented as of this encounter
--- OUTSIDE RECORDS SUMMARY | 2024-07-03 09:43 | XMS_ITS | Encounter Summary ---
Author Organization [facility] Address [address] [place] [address] Phone Care Team Providers Care Power Distributor Name Role Phone Kenroy Freeman NIRALI Primary Care Provider [phone] Encounter Details Date Type Department Care Team (Late st Contact Info) Description 05/13/2021 Documentation Only [facility] [address] [place] [address] Jose Martin Mccall MD [address] [place] [address] Social History Tobacco Use Types [...] Visit [facility] [address] [place] [address] Reginaldo Eagle MD [address] [place] [address] documented as of this encounter Visit Diagnoses Not on filedocumented in this encounter Care Teams Power Distributor Relationship Specialty Start Date End Date Kenroy Freeman NP [facility] [place] [address] PCP - General Nurse Practitioner 11/15/19 documented as of this encounter
== END 2024-07-03 09:08 | disposition home or self-care (01) ==
LOC: HO.HWS 08:50
PROVIDERS: PCP Nurse Practitioner Family; Visit Provider Obstetrics & Gynecology
DX: R87.610 Atypical squamous cells of undetermined significance on cytologic smear of cervix (ASC-US) (principal); R87.810 Cervical high risk human papillomavirus (HPV) DNA test positive
CPT/HCPCS: 99213

== ENCOUNTER → 2024-07-03 08:50 | Outpatient (BNVA) | payer OTHER, SELFPAY | PROVIDERS: PCP Nurse Practitioner Family; Visit Provider Obstetrics & Gynecology | DX: R87.610 Atypical squamous cells of undetermined significance on cytologic smear of cervix (ASC-US) (principal); R87.810 Cervical high risk human papillomavirus (HPV) DNA test positive | CPT/HCPCS: 99212 ==

== ENCOUNTER 2024-07-09 14:34 | Outpatient (REF) | payer OTHER, SELFPAY ==
[2024-07-09 14:53] LABS: MANUAL DIFF FLAG NO
[2024-07-09 15:13] LABS: Basophils Percent Auto 0.4 % (0-2); Eosinophils Absolute Auto 0.1 X10*3/uL (0.0-0.4); Eosinophils Percent Auto 1.5 % (0-4); Hematocrit 40.9 % (37.0-47.0); Hemoglobin 13.2 g/dl (12.0-16.0); Imm Gran Abs Auto 0.02 X10*3/uL (0.00-0.03); Imm Gran Pct Auto 0.4 % (0.0-0.4); Lymphocytes Absolute Auto 2.1 X10*3/uL (1.2-4.9); Lymphocytes Percent Auto 45.1 % (20-40); Mean Corpuscular HGB Conc 32.3 g/dl (31.0-35.0); Mean Corpuscular Hemoglobin 27.2 pg (27.0-33.0); Mean Corpuscular Volume 84.3 fL (80.0-98.0); Mean Platelet Volume 10.4 fL (9.4-12.3); Monocytes Absolute Auto 0.3 X10*3/uL (0.1-1.2); Monocytes Percent Auto 6.6 % (2-11); Neutrophils Absolute Auto 2.1 x10*3/uL (2.0-8.3); Platelet Count 190 X10*3/uL (160-400); Red Blood Count 4.85 X10*6/uL (4.20-5.50); Red Cell Distribution Width 14.6 % (11.0-16.0); White Blood Count 4.6 X10*3/uL (4.8-10.8)
[2024-07-09 16:49] LABS: Alanine Aminotransferase 20 U/L (0-31); Alkaline Phosphatase 146 U/L (39-117); Anion Gap 11 (12-20); Aspartate Amino Transferase 17 U/L (5-31); Bilirubin Direct 0.2 mg/dL (0.0-0.5); Bilirubin Total 0.5 mg/dL (0.0-1.0); Blood Urea Nitrogen 24 mg/dL (9-16); Calcium 9.3 mg/dL (8.4-10.2); Carbon Dioxide 25 mmol/L (22-29); Chloride 111 mmol/L (96-108); Estimated Glomerular Filt Rate 49; Glucose Random 79 mg/dL (60-115); Potassium 3.9 mmol/L (3.3-5.1); Sodium 143 mmol/L (135-145); Total Protein 7.4 g/dL (6.5-8.0)
[2024-07-10 03:44] LABS: Syphilis Screen Nonreactive (Nonreactive)
[2024-07-10 04:04] LABS: ~Hepatitis C Antibody Nonreactive (Nonreactive)
[2024-07-10 19:08] LABS: HIV RNA PCR Qn Copies NOT DETECTED copies/mL (NOT DETECTED); HIV RNA PCR Qn Log Copies NOT DETECTED (NOT DETECTED)
[2024-07-11 22:18] LABS: TS Negative Control Passed; TS Panel A 2; TS Panel B 0; TS Positive Control Passed; TSpotTB Negative (Negative)
[2024-07-13 15:57] LABS: Absolute CD3 Count 1801 cells/uL (840-3060); Absolute CD4 Count 995 cells/uL (490-1740); Absolute CD8 Count 832 cells/uL (180-1170); Absolute Lymphocytes 2229 cells/uL (850-3900); Percent CD3 Cells 81 % (57-85); Percent CD4 Cells 45 % (30-61); Percent CD8 Cells 37 % (12-42)
== END 2024-07-09 14:35 | disposition home or self-care (01) ==
LOC: HO.LAB 14:34
PROVIDERS: PCP Nurse Practitioner Family; Visit Provider Internal Medicine
DX: B20 Human immunodeficiency virus [HIV] disease (principal)
CPT/HCPCS: 36415; 80048; 80076; 85025; 86359; 86360; 86481; 86780; 86803; 87536

== ENCOUNTER 2024-07-17 13:30 | Outpatient (AMB) | payer OTHER, SELFPAY ==
--- NOTE | 2024-07-17 13:35 | A.OFFVIS_ITS ---
Vital Signs 07/17/24 13:40 Height 5 ft 1 in Weight 231 lb BMI 43.6 Pulse 81 Pulse Source Pulse Oximeter Pulse Oximetry (%) 99 Oxygen Delivery Method Room Air Intake Visit Reasons: 6 mth.f/u, HIV Allergies amlodipine [AMLODIPINE] Allergy (Unknown, Verified 07/17/24 13:40) RASH cephalexin [From KEFLEX] Allergy (Unknown, Verified 07/17/24 13:40) RASH levofloxacin [From LEVAQUIN] Allergy (Unknown, Verified 07/17/24 13:40) RASH HPI HPI 6 mth.f/u, HIV: Details: She is doing well. She takes Biktarvy and has CD4 coutn of 995 and viral load undetectable on 07/09 and syphilis screening negative. She has Hepatitis C negative and Tspot negative. She had some ASCUS on Pap 04/2024 but do not see anal Pap. She has colonoscopy also 04/2024 unremarkable for malignancy. She is UTD with mammogram. 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 Mother Stroke Sister Diabetes mellitus Maternal Grandmother Unknown family medical history Brother Cancer Sister No problems noted. Brother No problems noted. Daughter Healthy female Social History Housing: Apartment Are you a primary care transition coordinator to a significant other at home: No Do you presently have visiting nurse or other home services: No Alcohol intake: current Alcohol intake frequency: holidays/special occasions only Patient Tobacco Use Status: Never used Tobacco e-Cigarette/Vaping Use: Never Used Second Hand Smoke Exposure: No Current occupational status: disabled Cognitive needs: No Hearing needs: No Vision needs: No Female Reproductive History Menstrual Age of Menarche: 13 Review of Systems Const All systems reviewed & are unremarkable except as noted in HPI and below Physical Exam Vital Signs: Last Vital Signs Pulse 81 07/17/24 13:40 Pulse Ox 99 07/17/24 13:40 Oxygen Delivery Method Room Air 07/17/24 13:40 BMI result Body Mass Index 43.6 Const General: cooperative Orientation/consciousness: patient oriented x3 HEENT Head: Yes normal to inspection Mouth: Normal oral and palatal mucosa present Eyes General: appearance normal, both eyes and all related structures Pupils: Equal, round and reactive pupils present Resp Effort & Inspection: normal respiratory effort Cardio Rate: regular rate Rhythm: regular rhythm GI Palpation (GI): Soft to palpation and nontender General: Yes no CVA tenderness Back/Spine/Pelvis Back: no CVA tenderness Skin General skin exam: no rashes or lesions noted Neuro General: patient oriented x3 Cranial nerves: Yes CN's II-XII intact bilaterally and Yes Equal, round and reactive pupils present Extrem General: Yes normal to inspection Psych Appearance: grossly normal Assessment & Plan Assessment & Plan (1) HIV (human immunodeficiency virus infection): Code(s): B20 - Human immunodeficiency virus [HIV] disease Category: Medical Plan: She is doing well and has viral load undetectable and CD4 count 995. Would check CD4 count and viral load in five months. Wrote for labs and Biktarvy. She has no dental or vision issues and right ear discomfort some scarring and will follow with PCP. She has no depression She still has same boyfriend. Plan Check labs in six months and wrote for Biktarvy for six month interval. Orders: Orders Lymphocyte Subset Panel 3 5 Months B20 - Human immunodeficiency virus [HIV] disease HIV-1 RNA QN PCR Expanded 5 Months B20 - Human immunodeficiency virus [HIV] disease Medications: Refilled mxpzwxyra-ijsrjexk-ezvkztf ala 50-200-25 mg (Biktarvy) 1 tab PO DAILY 90 tabs 1RF 90 days Coding Level of Care Code Est Pt Level 4 (76573) Diagnoses HIV (human immunodeficiency virus infection) B20
[2024-07-17 13:40] VITALS: PULSE 81; O2SAT 99; BMI 43.6
--- OUTSIDE RECORDS SUMMARY | 2024-07-17 16:11 | XMS_ITS | Encounter Summary ---
Author Organization [facility] Address [address] [place] [address] Phone Care Team Providers Care Cargo Surveyor Name Role Phone Kenroy Freeman NP Primary Care Provider [phone] Encounter Details Date Type Department Care Team (Late st Contact Info) Description 08/08/2022 Documentation Only [facility] [address] [place] [phone] Tonya Wilson PA Social History Tobacco Use [...] Visit [facility] [address] [place] [phone] Reginaldo Eagle MD [address] [place] [address] [place] [phone] documented as of this encounter Visit Diagnoses Not on filedocumented in this encounter Care Teams Cargo Surveyor Relationship Specialty Start Date End Date Kenroy Freeman NP [address] [place] [address] PCP - General Nurse Practitioner 11/15/19 documented as of this encounter
--- OUTSIDE RECORDS SUMMARY | 2024-07-17 16:11 | XMS_ITS | Clinical Summary ---
Author Organization [facility] Address [address] [place] [address] Care Team Providers Care Odd Jobs Day Worker Name Role Phone Unavailable Primary Care [...]
--- OUTSIDE RECORDS SUMMARY | 2024-07-17 16:11 | XMS_ITS | Encounter Summary ---
Author Organization [facility] Address [address] [place] [address] Phone Care Team Providers Care Market Analysis Director Name Role Phone Kenroy Freeman NIRALI Primary Care Provider [phone] Encounter Details Date Type Department Care Team (Late st Contact Info) Description 10/13/2021 Documentation Only [facility] [address] [place] [address] Jose Martin Mccall MD [address] [place] [address] Social History Tobacco Use Types [...] [facility] [address] [place] [address] Reginaldo Eagle MD [address] [place] [address] documented as of this encounter Visit Diagnoses Not on filedocumented in this encounter Care Teams Market Analysis Director Relationship Specialty Start Date End Date Kenroy Freeman NP [place] [address] PCP - General Nurse Practitioner 11/15/19 documented as of this encounter
--- OUTSIDE RECORDS SUMMARY | 2024-07-17 16:11 | XMS_ITS | Encounter Summary ---
Author Organization [facility] Address [address] [place] [address] Phone Care Team Providers Care Nuclear Operator Name Role Phone Kenroy Freeman NIRALI Primary Care Provider [phone] Encounter Details Date Type Department Care Team (Late st Contact Info) Description 08/18/2022 Documentation Only [facility] [address] [place] [address] [place], [place] [address] [place] [address] Social History Tobacco Use Types [...] [facility] [address] [place] [address] Reginaldo Eagle MD [address] [place] [address] documented as of this encounter Visit Diagnoses Not on filedocumented in this encounter Care Teams Nuclear Operator Relationship Specialty Start Date End Date Kenroy Freeman NP [facility] [place] [address] PCP - General Nurse Practitioner 11/15/19 documented as of this encounter
--- OUTSIDE RECORDS SUMMARY | 2024-07-17 16:12 | XMS_ITS | Encounter Summary ---
Author Organization [facility] Address [address] [place] [address] Phone Care Team Providers Care Cotton Sampler Name Role Phone Kenroy Freeman NIRALI Primary Care Provider [phone] Encounter Details Date Type Department Care Team (Late st Contact Info) Description 06/02/2023 Documentation Only [facility] [address] [place] [address] Reanna Goyal [address] [place] [address] Social History Tobacco Use Types [...] [facility] [address] [place] [address] Reginaldo Eagle MD [address] [place] [address] documented as of this encounter Visit Diagnoses Not on filedocumented in this encounter Care Teams Cotton Sampler Relationship Specialty Start Date End Date Kenroy Freeman NP [place] [address] PCP - General Nurse Practitioner 11/15/19 documented as of this encounter
--- OUTSIDE RECORDS SUMMARY | 2024-07-17 16:12 | XMS_ITS | Patient Health Record ---
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) Active confirmed Problem [id number] Pronation deformity of right foot (M21.6X1) Active confirmed Plan Of Treatment No Information Insurance Providers Payer Name Payer Address Payer Phone Subscriber Number Group Number Insured Name Patient Relationship to Insured Coverage Start Date Coverage End Date [facility] [employer] Claims [id number] [place] [id number] Miriam Chacon Self - patient is the insured Medical (General) History Medical History History ICD Code Anxiety Depression High blood pressure raynauds disease Sciatica thyroid HIV Surgical History Surgery Date(Month/Year) tubes in ears tubal ligation 2000 shoulder surgery
--- OUTSIDE RECORDS SUMMARY | 2024-07-17 16:12 | XMS_ITS | Encounter Summary ---
Author Organization [facility] Address [address] [place] [address] Phone Care Team Providers Care Multicultural Internship Name Role Phone Kenroy Freeman NIRALI Primary Care Provider [phone] Encounter Details Date Type Department Care Team (Late st Contact Info) Description 05/13/2021 Documentation Only [facility] [address] [place] [address] Jose Martin Mccall MD [address] [place] [address] Social History Tobacco Use Types [...] Visit [facility] [address] [place] [address] Reginaldo Eagle MD [address] [place] [address] documented as of this encounter Visit Diagnoses Not on filedocumented in this encounter Care Teams Multicultural Internship Relationship Specialty Start Date End Date Kenroy Freeman NP [facility] [place] [address] PCP - General Nurse Practitioner 11/15/19 documented as of this encounter
--- OUTSIDE RECORDS SUMMARY | 2024-07-17 16:12 | XMS_ITS | Encounter Summary ---
Author Organization [facility] Address [address] [place] [address] Phone Care Team Providers Care Dogman/Woman Name Role Phone Kenroy Freeman NIRALI Primary Care Provider [phone] Encounter Details Date Type Department Care Team (Late st Contact Info) Description 06/01/2023 Documentation Only [facility] [address] [place] [address] Deya Chowdhury [address] [place] [address] Social History Tobacco Use Types [...] Visit [facility] [address] [place] [address] Reginaldo Eagle MD [address] [place] [address] [place] [address] documented as of this encounter Visit Diagnoses Not on filedocumented in this encounter Care Teams Dogman/Woman Relationship Specialty Start Date End Date Kenroy Freeman NP [facility] [place] [address] PCP - General Nurse Practitioner 11/15/19 documented as of this encounter
--- OUTSIDE RECORDS SUMMARY | 2024-07-17 16:12 | XMS_ITS | Encounter Summary ---
Author Organization [facility] Address [address] [place] [address] Phone Care Team Providers Care Director Clinical Data Name Role Phone Kenroy Freeman NIRALI Primary Care Provider Encounter Details Date Type Department Care Team (Late st Contact Info) Description 08/18/2021 Documentation Only [facility] [address] [place] [address] Jose Martin Mccall MD [address] [place] [address] Social History Tobacco Use Types [...] Visit [facility] [address] [place] [address] Reginaldo Eagle MD [address] [place] [address] documented as of this encounter Visit Diagnoses Not on filedocumented in this encounter Care Teams Director Clinical Data Relationship Specialty Start Date End Date Kenroy Freeman NP [facility] [place] [address] PCP - General Nurse Practitioner 11/15/19 documented as of this encounter
--- OUTSIDE RECORDS SUMMARY | 2024-07-17 16:12 | XMS_ITS | Encounter Summary ---
Author Organization [facility] Address [address] [place] [address] Phone Care Team Providers Care Conventions Reservationist Name Role Phone Kenroy Freeman NIRALI Primary Care Provider [phone] Encounter Details Date Type Department Care Team (Late st Contact Info) Description 08/18/2021 Documentation Only [facility] [address] [place] [address] Jose Martin Mccall MD [address] [facility] [place] [address] Social History Tobacco Use Types [...] [facility] [address] [place] [address] Reginaldo Eagle MD [address] [facility] [place] [address] documented as of this encounter Visit Diagnoses Not on filedocumented in this encounter Care Teams Conventions Reservationist Relationship Specialty Start Date End Date Kenroy Freeman NP [facility] [place] [address] PCP - General Nurse Practitioner 11/15/19 documented as of this encounter
--- OUTSIDE RECORDS SUMMARY | 2024-07-17 16:12 | XMS_ITS | Encounter Summary ---
Author Organization [facility] Address [address] [place] [address] Phone Care Team Providers Care Grips Name Role Phone Kenroy Freeman NP Primary Care Provider [phone] Encounter Details Date Type Department Care Team (Late st Contact Info) Description 03/01/2021 Documentation Only [facility] [address] [place] [address] Falguni Whitney PA Social History Tobacco Use [...] Visit [facility] [address] [place] [address] Reginaldo Eagle MD [address] [place] [address] [place] [phone] documented as of this encounter Visit Diagnoses Not on filedocumented in this encounter Care Teams Grips Relationship Specialty Start Date End Date Kenroy Freeman NP [address] [place] [address] PCP - General Nurse Practitioner 11/15/19 documented as of this encounter
--- OUTSIDE RECORDS SUMMARY | 2024-07-17 16:12 | XMS_ITS | Encounter Summary ---
Author Organization [facility] Address [address] [place] [address] Phone Care Team Providers Care Wax Cutter Name Role Phone Kenroy Freeman NP Primary Care Provider [phone] Encounter Details Date Type Department Care Team (Late st Contact Info) Description 09/19/2022 Documentation Only [facility] [address] [place] [address] Tonya Wilson PA Social History Tobacco Use [...] Visit [facility] [address] [place] [address] Reginaldo Eagle MD [address] [place] [address] [place] [phone] documented as of this encounter Visit Diagnoses Not on filedocumented in this encounter Care Teams Wax Cutter Relationship Specialty Start Date End Date Kenroy Freeman NP [address] [place] [address] PCP - General Nurse Practitioner 11/15/19 documented as of this encounter
--- OUTSIDE RECORDS SUMMARY | 2024-07-17 16:12 | XMS_ITS | Encounter Summary ---
Author Organization [facility] Address [address] [place] [address] Phone Care Team Providers Care Plate Colorer Name Role Phone Kenroy Freeman NIRALI Primary Care Provider [phone] Encounter Details Date Type Department Care Team (Late st Contact Info) Description 03/20/2024 Documentation Only [facility] [address] [place] [address] Reanna Goyal [address] [place] [address] Social History Tobacco Use Types [...] [facility] [address] [place] [address] Reginaldo Eagle MD [address] [facility] [place] [address] documented as of this encounter Visit Diagnoses Not on filedocumented in this encounter Care Teams Plate Colorer Relationship Specialty Start Date End Date Kenroy Freeman NP [facility] [place] [address] PCP - General Nurse Practitioner 11/15/19 documented as of this encounter
--- OUTSIDE RECORDS SUMMARY | 2024-07-17 16:12 | XMS_ITS | Clinical Summary ---
Author Organization [facility] Address [address] [place] [address] [place] [address] Phone Care Team Providers Care Foreign Language Professor Name Role Phone Kenroy Freeman NP Primary Care Provider [phone] Allergies Active Allergy Reactions Criticality Noted Date [...] Medical History Relation Comments Heart disease Father [place] Stroke Father Hypertension Mother Cancer Sibling 1 [...] Visit [facility] [address] [place] [address] Reginaldo Eagle MD [address] [place] [address] Health Maintenance Due Date Last Done Comments [...] Influenza Vaccine (#1) 2023 01/31/[address] [place] [id number] [facility]ARE DUAL SNP ([id number]) [place] [id number] [place] [address] [place] [address] Care Teams Foreign Language Professor Relationship Specialty Start Date End Date Kenroy Freeman NP [address] [place] [address] PCP - General Nurse Practitioner 11/15/19
--- OUTSIDE RECORDS SUMMARY | 2024-07-17 16:12 | XMS_ITS | Encounter Summary ---
Author Organization [facility] Address [address] [place] [address] Phone Care Team Providers Care Sheriff Officer Name Role Phone Kenroy Freeman NIRALI Primary Care Provider [phone] Encounter Details Date Type Department Care Team (Late st Contact Info) Description 09/27/2021 Documentation Only [facility] [address] [address] Jose Martin Mccall MD [address] [place] [address] Social History Tobacco Use Types [...] Visit [facility] [address] [address] Reginaldo Eagle MD [address] [place] [address] documented as of this encounter Visit Diagnoses Not on filedocumented in this encounter Care Teams Sheriff Officer Relationship Specialty Start Date End Date Kenroy Freeman NP [facility] [place] [address] PCP - General Nurse Practitioner 11/15/19 documented as of this encounter
--- OUTSIDE RECORDS SUMMARY | 2024-07-17 16:12 | XMS_ITS | Data Portability ---
Author Organization [facility] [place] - [facility] Address [address] [place] [address] Care Team Providers Care Security Services Manager Name Role Phone KATHY TEIXEIRA Primary Care Provider HIM CCA OTHER Assessment Encounter Date Assessment Date Assessment LastModified by Organization Details LastModified Time 07/27/2023 07/27/2023 As noted, we were called to see this patient regarding concerns of weakness. Evaluation in the field was performed by my scarfer colleague, as noted above, I provided real-time [...] QL IA, respiratory specimen [address] [facility], [address] [place] [address], [phone], 08/15/202 4 20:47:12 rapid flu (A+B) 2023 024 [place] [facility], [address] [place] [address], [id number], 4 20:47:49 culture, urine 2023 024 [email or web address] [facility], [address], [address] [place], [place], [address], 09:51:23 urinalysis, dipstick 2023 024 [facility] [address] [place] [address], [id number], 15:29:52 rapid flu (A+B) 2021 022 [email or web address] [facility], [address] [place] [address], [id number], 2 21:38:31 rapid SARS CoV 2 Ag, QL IA, respiratory specimen 2021 022 [email or web address] [facility], [address] [place] [address], [id number], 2 21:38:31 rapid strep group A, throat 2021 022 [email or web address] [facility], [address] [place] [address], [address], 2 21:38:31 Referral None recorded. Procedures None recorded. Surgeries None recorded. Imaging None recorded. Medication Orders Paxlovid 300 mg (150 mg x 2)-100 mg tablets in a dose pack 2023 024 [id number], [address] [place], [place], [phone], 14:35:21 Bactrim DS 800 mg-160 mg tablet 2023 024 [place] [id number], [address] [place], [place], [phone], 4 13:03:33 potassium chloride ER 20 mEq [...] ts at testd irect ory.q uestd iagno [employer] .com Not Available [facility] [place] [facility] [address], [place], [address], 10/23/2023 15:48:24 10/23/19 24 10/23/2023 SPECI MEN [...] Patho logis ts (CAP) . Not Available [facility] [place] [facility] [address], [place], [address], 10/23/2023 15:48:25 10/23/19 24 10/23/2023 PATIE NT ID APPRO EDISON TIQ DOCUM ENTAT ION comment Ident ifica tion of test requi sitio n and/o r speci men(s ) was quest ionab le. The below named indiv idual provi ded this burton ed patie nt ident ifica tion. Not Available [facility] [place] [facility] [address], [place], [address], 10/23/2023 15:48:25 10/23/19 24 10/23/2023 PATIE NT ID APPRO EDISON TIQ DOCUM ENTAT ION contact FAX Not Available [facility] [place] [facility] [address] [place], [place], [address], 10/23/2023 15:48:25 10/23/19 24 10/23/2023 PATIE NT ID APPRO EDISON TIQ DOCUM ENTAT ION tests affected 395 Not Available [facility] [place] [facility] [address], [place], [address], 10/23/2023 15:48:25 10/23/19 24 10/23/2023 CULTU RE, URINE , ROUTI NE culture, urine, routine SEE NOTE CULTU RE, URINE , ROUTI NE Micro Numbe r: [id number] Test Statu s: Final Speci men [...] [facility]or t [facility] Faxed to: [phone] on: 10/19 18:29 NO COLLE CTION DATE RECEI ANJANA. WE HAVE USED THE DATE THE SPECI MEN WAS RECEI ANJANA BY THIS LABOR ATORY THE COLLE CTION DATE. IF THIS IS INCOR RECT, PLEAS E CONTA CT CLIEN T SERVI JUANY. PHONE NUMBE R: [phone] Not Available [facility] [place] [facility] [address], [place], [address], 10/23/2023 15:48:26 01/14/20 22 01/13/2022 rapid strep group A, throa t Strep negati ve Not Available [facility] ed [address] [place] [address], [address], 01/13/2022 21:37:04 01/14/20 22 01/13/2022 rapid SARS CoV 2 Ag, QL IA, respi rator y speci men rapid SARS CoV 2 Ag, QL IA, respiratory specimen negati ve Not Available [facility] ed [address] [place] [address], [address], 01/13/2022 21:37:00 01/14/20 22 01/13/2022 rapid flu (A+B) Flu negati ve Not Available [facility] ed [address] [place] [address], [address], 01/13/2022 21:36:59 Result Notes None recorded. Medical [...] Not available Not available Not available 02/13/2024 39557 RxNorm Not Available [facility] - production 4 [...] ONCE DIRECTED [facility] active Not Available Not Available No [...] Updated DateTime 4 18 /min 96.9 [degF] 702465. 2 g 100 % 100 % 70 /min 172 mm[Hg] 104 mm[Hg] Not Available [facility] [employer] production 4 18:07:31 Date Recorded Respiratory rate Oxygen saturation Oxygen saturation in Arterial blood by Pulse oximetry Heart rate Body temperature Systolic blood pressure Diastolic blood pressure Provider Name and Address Organization Details Last Updated DateTime 4 18 /min 99 % 99 % 82 /min 97.4 [degF] 132 mm[Hg] 82 mm[Hg] Not Available [facility] [employer] 4 12:54:21 Date Recorded Oxygen saturation Oxygen saturation in Arterial blood by Pulse oximetry Heart rate Respiratory rate Body temperature Systolic blood pressure Diastolic blood pressure Provider Name and Address Organization Details Last Updated DateTime 4 95 % 95 % 110 /min 20 /min 98.1 [degF] 130 mm[Hg] 90 mm[Hg] Not Available [employer] 4 14:16:32 Date Recorded Oxygen saturation Oxygen [...] Updated DateTime 2 96 % 96 % 62702.2 4 g 154.94 cm 97.4 [degF] 20 /min 130 /min 97.4 [degF] 96 % 96 % 130 /min 154.94 cm 33633.2 4 g 20 /min 128 mm[Hg] 84 mm[Hg] 128 mm[Hg] 84 mm[Hg] Not Available [employer] 2 17:44:08 Social History None recorded. Functional [...] [id number] Ray Goyal MD [facility] [address] [place] [phone] 01/13/2022 15:51:31 01/17/2022 16:23:27 Cough 58656658 R05.9 COVID, Flu, strep negative. No s/s of pneumonia or asthma exacerbati on. O2 sat normal. Supportive care. Tachycardia 3629733 R00. [address]-T wave changes. HR came down to 103 Hypokalemia 72259477 E87 .6 [place]leted [place] 40 [place] [id number] Kiki Martinez MD [facility] [address] [place] [phone] 07/27/2023 18:07:29 07/28/2023 12:52:04 Weakness present [id number] M62.81 [id number] Ray Goyal MD [facility] [address] [place] [phone] 10/14/2023 12:50:48 10/15/2023 21:01:10 Dysuria 97818749 R30.0 Recently treated with Macrobid (treated five days prior), now with worsening pain. Amenable to trying antibiotic prior to obtaining culture. Discussed red flag signs for which to seek higher level of care. [id number] Ray Goyal MD [facility] [address] [place] [phone] 11/30/2023 14:02:19 12/01/2023 13:01:16 COVID-19 [id number] U07.1 COVID positive. Flu negative. s/p vaccinatio [...] Lala Member ID Guarantor Name 01/13/2022 1 [facility] - DOS PRIOR TO 2022 - DUAL ELIGIBLE (MEDICARE REPLACEMENT/ADV ANTAGE - HMO) Miriam Oswaldo [id number] Miriam Gallardo Oswaldo 07/27/2023 1 [facility] - DOS ON OR AFTER 2022 - DUAL ELIGIBLE - CARE HOME OPTIONS AND ONE CARE (MEDICARE REPLACEMENT/ADV ANTAGE - HMO) Miriam Oswaldo [id number] Miriam Lillyshahzad 10/14/2023 1 [facility] - DOS ON OR AFTER 2022 - DUAL ELIGIBLE - CARE HOME OPTIONS AND ONE CARE (MEDICARE REPLACEMENT/ADV ANTAGE - HMO) Miriam Lancasteranatoly [id number] Miriam Gallardo Oswaldo 11/30/2023 1 [facility] - DOS ON OR AFTER 2022 - DUAL ELIGIBLE - CARE HOME OPTIONS AND ONE CARE (MEDICARE REPLACEMENT/ADV ANTAGE - HMO) Miriam Lancasteranatoly [id number] Miriam Gallardo Oswaldo Notes Date Note Type Note Provider Name and Address Organization Details Recorded Time 01/13/2022 text/html HPI: Referral taken over the phone by members healthcare financial analyst. Member with cold like symptoms since Monday. Member c/o cough, congestion, fatigued and unable to sleep. Home covid test negative. CM unsure if member has phlegm, fever/chills or any hx of asthma/copd. Per CM member safe and stable to wait for an [facility] visit. ................... ................... ................... ................... ................... ................... ................... ........ CRC Nursing Assessment: Comments: CRC RN did not require any additional information to process this visit. ................... ................... ................... ................... ................... ................... ................... ........ Software Security Architect Note: Sent to a call for a [...] sample obtained; Urine dip: Results uploaded to [employer]; [facility] orders 12 lead ECG, Rapid Strep test, and POC CMP; Rapid strep: neg; blood sample obtained via venous blood draw; CMP results: potassium low; ECG results: uploaded to [employer]. [facility] orders Potassium 40meq PO; Potassium administered. Red flags discussed. Pt has no further questions. ................... ................... ................... ................... ................... ................... ................... ........ Disposition: Fulfilled Ray Goyal MD [address] [facility],[address], [place], [address], [facility] [employer] 01/13/2022 21:38:55 07/27/2023 text/html CRC Nurse Triage Notes (Loulou Pimentel): Chief Complaints: Weakness/Lethargy PMH: Hypertension, Other Comments: PMH: Hypothyroid, HIV Member was recently seen in the ED for bradycardia in the 50's. No interventions taken related to bradycardia. Member. Feeling weakness and fatigue over the last 2 days. Denies chest pain, shortness of breath or dizziness. Prescribed metoprolol daily for HTN. Unable reach Guest Service Supervisor today. HR 50's today. Reviewed RED flags. Instructed member to call 911 for worsening signs/symptoms. ................... ................... ................... ................... ................... ................... ................... ........ Software Security Architect Note From Renato Bangura: Pt co fatigue [...] RX metoprolol . Lungs clear no edema. [facility] contacted and advised pt to follow up with help desk support specialist and pcp. Pt education on signs indicating the ER. ................... ................... ................... ................... ................... ................... ................... ........ Disposition: Fulfilled Kiki Martinez MD [address] [facility],[address], [place], [address], [facility] 07/27/2023 18:47:44 10/14/2023 text/html CRC Nurse Triage [...] fever/chills. Member would like to be evaluated. Software Security Architect POC Test Results from Deyanira Guy Urine [...] ................... ................... ................... ................... ................... ................... ........ Software Security Architect Note From Deyanira Guy: Pt with two [...] up with pcp Monday, red flags reviewed. Software Security Architect Allergies: Cephalexin, Levofloxacin ................... ................... ................... ................... ................... ................... ................... ........ Disposition: Fulfilled Ray Goyal MD [address] [place] [address],[address], [place], [address], [facility] 10/14/2023 13:34:41 11/30/2023 text/html CRC Nurse Triage Notes (Loulou Pimentel): Reason For Request: Pt reporting cold like symptoms > unable to eat in 2 days>issues with her lower back>Legs and arms on the LEFT side are going numb Chief Complaints: Cough, Weakness/Lethargy, Pain PMH: Hypertension, HIV Allergies: Cephalexin, Levofloxacin Comments: [facility] Laboratory Technician verified the member's name//address and phone number. Cold symptoms since Monday. + cough, rhinnorhea, and fatigue. Denies fever. Exposed to boyfriend who was sick. Decreased appetite x2 days. Drinking fluids. c/o lower abdominal pain and increased bowel movement frequency. No diarrhea. Education provided on the response time and the member was advised to monitor reported s/s and seek emergency treatment if needed. Software Security Architect Organization Information for [employer] [employer] Name: [employer]? Address: [address] [place] [address], Technical Artist: Mark Velazquez MD [facility] No.: [id number] Software Security Architect POC Test Results from [facility] Rapid COVID antigen (15:27:55) COVID: + Rapid influenza antigen (15:27:56) Flu: - Urine Dipstick (15:36:39) Urine leukocytes: NR Urine nitrites: NR Urine urobilinogen: NR Urine protein: NR Urine pH: NR Urine blood: NR Urine specific gravity: NR Urine ketones: NR Urine bilirubin: NR Urine glucose: NR ................... ................... ................... ................... ................... ................... ................... ........ Software Security Architect Note From [facility]: Dispatched to the [...] -sob -dizziness -nvd -abd pain -blurred vision. [facility] contacted and ordered flu and covid test with U/A. Covid test was positive negative on flu and urine showed positive ketones and blood. [facility] ordered the patient [...] ........ Disposition: Fulfilled Ray Goyal MD [address] [facility],[address], [place], [address], [employer] [facility] 11/30/2023 16:52:34 OBGyn Episode No OBEpisode recorded.
== END 2024-07-17 14:08 | disposition home or self-care (01) ==
LOC: HO.HID 13:31
PROVIDERS: PCP Nurse Practitioner Family; Visit Provider Internal Medicine
DX: B20 Human immunodeficiency virus [HIV] disease (principal)
CPT/HCPCS: 99214

== ENCOUNTER → 2024-07-17 13:30 | Outpatient (BNVA) | payer OTHER, SELFPAY | PROVIDERS: PCP Nurse Practitioner Family; Visit Provider Internal Medicine | DX: B20 Human immunodeficiency virus [HIV] disease (principal) | CPT/HCPCS: 99212 ==

== ENCOUNTER 2024-08-13 09:00 | Outpatient (AMB) | payer OTHER, SELFPAY ==
--- NOTE | 2024-08-13 09:02 | MHC.OFFVIS ---
Intake Visit Reasons: Rectal pap Care Center Manager Required: No Information Interpreted: non-clinical & clinical Social Services Designee: Social Services Designee Present (Kira/ Ilene RUIZ) Accompanied by: Self / Same As Patient Allergies amlodipine [AMLODIPINE] Allergy (Unknown, Verified 08/13/24 09:06) RASH cephalexin [From KEFLEX] Allergy (Unknown, Verified 08/13/24 09:06) RASH levofloxacin [From LEVAQUIN] Allergy (Unknown, Verified 08/13/24 09:06) RASH HPI Comments Details: Presenting referred from IUD for rectal Pap because of positive HIV status REPLACED BY [facility] Medical History 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 Anxiety Chronic kidney disease, stage 2 (mild) Morbid obesity Other and unspecified hyperlipidemia Essential hypertension Atherosclerotic cardiovascular disease Pituitary microadenoma Vitamin D deficiency Graves disease Post-surgical hypothyroidism Osteoarthritis GERD (gastroesophageal reflux disease) Leukopenia Cervical radiculitis Lumbar radiculopathy Pernicious anemia Obstructive sleep apnea Raynaud's phenomenon Pituitary microadenoma 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 Mother Stroke Sister Diabetes mellitus Maternal Grandmother Unknown family medical history Brother Cancer Sister No problems noted. Brother No problems noted. Daughter Healthy female Social History Housing: Apartment Are you a primary healthcare management consultant to a significant other at home: No Do you presently have visiting nurse or other home services: No Alcohol intake: current Alcohol intake frequency: holidays/special occasions only Patient Tobacco Use Status: Never used Tobacco e-Cigarette/Vaping Use: Never Used Second Hand Smoke Exposure: No Current occupational status: disabled Cognitive needs: No Hearing needs: No Vision needs: No Female Reproductive History Menstrual Age of Menarche: 13 Review of Systems Const All systems reviewed & are unremarkable except as noted in HPI and below Reports as per HPI and Reports no additional complaints GI Reports no additional complaints Reports no additional complaints Assessment & Plan Assessment & Plan (1) Screening for rectal cancer: Code(s): Z12.12 - Encounter for screening for malignant neoplasm of rectum Category: Medical Plan: Rectal Pap taken. Coding Level of Care Code Est Pt Level 3 (08809) Diagnoses Screening for rectal cancer Z12.12
--- OUTSIDE RECORDS SUMMARY | 2024-08-13 09:34 | XMS_ITS | Encounter Summary ---
Author Organization [facility] Address [address] [place] [address] Phone Care Team Providers Care Asphalt Spreader Name Role Phone Kenroy Freeman NIRALI Primary Care Provider [phone] Encounter Details Date Type Department Care Team (Late st Contact Info) Description 03/20/2024 Documentation Only [facility] [address] [place] [address] Reanna Goyal [address] [place] [address] Social History Tobacco Use Types [...] Visit [facility] [address] [place] [address] Reginaldo Eagle MD [address] [place] [address] documented as of this encounter Visit Diagnoses Not on filedocumented in this encounter Care Teams Asphalt Spreader Relationship Specialty Start Date End Date Kenroy Freeman NP [facility] [place] [address] PCP - General Nurse Practitioner 11/15/19 documented as of this encounter
--- OUTSIDE RECORDS SUMMARY | 2024-08-13 09:34 | XMS_ITS | Clinical Summary ---
Author [facility] Address [address] [place] [address] Care Team Providers Care Shaping Machine Operator Name Role Phone Unavailable Primary Care [...] - 2023-2 5 season) 2023 Influenza Vaccine (Season Ended) 2024 HIB Vaccines Aged Out No longer eligi [...] age to complete this topic Meningococcal B Vaccine Aged Out No l onger eligible based on patient's age to complete [...]
--- OUTSIDE RECORDS SUMMARY | 2024-08-13 09:34 | XMS_ITS | Encounter Summary ---
Author Organization [facility] Address [address] [place] [address] Phone Care Team Providers Care Socially Responsible Investment Adviser Name Role Phone Kenroy Freeman NIRALI Primary Care Provider [phone] Encounter Details Date Type Department Care Team (Late st Contact Info) Description 06/01/2023 Documentation Only [facility] [address] [place] [address] Deya Chowdhury [address] [place] [address] Social History Tobacco Use Types [...] Visit [facility] [address] [place] [address] Reginaldo Eagle MD [address] [place] [address] [place] [address] documented as of this encounter Visit Diagnoses Not on filedocumented in this encounter Care Teams Socially Responsible Investment Adviser Relationship Specialty Start Date End Date eKnroy Freeman NP [facility] [place] [address] PCP - General Nurse Practitioner 11/15/19 documented as of this encounter
--- OUTSIDE RECORDS SUMMARY | 2024-08-13 09:34 | XMS_ITS | Encounter Summary ---
Author Organization [facility] Address [address] [place] [address] Phone Care Team Providers Care Precision Instrument Maker Name Role Phone Kenroy Freeman NIRALI Primary Care Provider [phone] Encounter Details Date Type Department Care Team (Late st Contact Info) Description 08/18/2022 Documentation Only [facility] [address] [place] [address] [place], [place] [address] [place] [address] Social History Tobacco Use Types [...] Visit [facility] [address] [place] [address] Reginaldo Eagle MD [address] [place] [address] documented as of this encounter Visit Diagnoses Not on filedocumented in this encounter Care Teams Precision Instrument Maker Relationship Specialty Start Date End Date Kenroy Freeman NP [facility] [place] [address] PCP - General Nurse Practitioner 11/15/19 documented as of this encounter
--- OUTSIDE RECORDS SUMMARY | 2024-08-13 09:34 | XMS_ITS | Encounter Summary ---
Author Organization [facility] Address [address] [place] [address] Phone Care Team Providers Care Court Stenographer Name Role Phone Kenroy Freeman NP Primary Care Provider [phone] Encounter Details Date Type Department Care Team (Late st Contact Info) Description 03/01/2021 Documentation Only [facility] [address] [place] [address] Falguni Whitney PA Social History Tobacco Use [...] [facility] [address] [place] [phone] Reginaldo Eagle MD [address] [place] [address] [place] [place] [id number] documented as of this encounter Visit Diagnoses Not on filedocumented in this encounter Care Teams Court Stenographer Relationship Specialty Start Date End Date Kenroy Freeman NP [address] [place] [address] PCP - General Nurse Practitioner 11/15/19 documented as of this encounter
--- OUTSIDE RECORDS SUMMARY | 2024-08-13 09:34 | XMS_ITS | Data Portability ---
Author Organization [employer], [place] [facility] Address [address] [place] [address] Care Team Providers Care Life Educator Name Role Phone KATHY TEIXEIRA Primary Care Provider [phone] HIM CCA OTHER Assessment Encounter Date Assessment Date Assessment LastModified by Organization Details LastModified Time 07/27/2023 07/27/2023 As noted, we were called to see this patient regarding concerns of weakness. Evaluation in the field was performed by my plaster foreman colleague, as noted above, I provided real-time [...] QL IA, respiratory specimen 2023 024 [place] [facility], [address] [place] [address], [id number] 20:47:12 rapid flu (A+B) 2023 024 [place] [facility], [address] [place] [address], [id number] 4 20:47:49 culture, urine 2023 024 [email or web address] [facility], [address], [place], [place], [address], 09:51:23 urinalysis, dipstick 2023 024 [facility] [address] [place] [address], [id number] 4 15:29:52 rapid flu (A+B) 2021 022 [email or web address] [facility], [address] [place] [address], [id number] 2 21:38:31 rapid SARS CoV 2 Ag, QL IA, respiratory specimen 2021 022 [email or web address] [facility], [address] [place] [address], [id number] 2 21:38:31 rapid strep group A, throat 2021 022 [email or web address] [facility], [address] [place] [address], [id number] 2 21:38:31 Referral None recorded. Procedures None recorded. Surgeries None recorded. Imaging None recorded. Medication Orders Paxlovid 300 mg (150 mg x 2)-100 mg tablets in a dose pack 2023 [id number], [address] [place], [place], [id number], 4 14:35:21 Bactrim DS 800 mg-160 mg tablet 2023 [facility] #[id number], [address], [place], [id number], 13:03:33 potassium chloride ER 20 mEq tablet,exte [...] ts at testd irect ory.q uestd iagno [email or web address] .[email or web address] Not Available Before the Call- [place] [facility] [address] [place], [place], [address], 10/23/2023 15:48:24 10/23/19 24 10/23/2023 SPECI MEN [...] Patho logis ts (CAP) . [facility] [address] [place], [place], [address], 10/23/2023 15:48:25 10/23/19 24 10/23/2023 PATIE NT ID APPRO EDISON TIQ DOCUM ENTAT ION comment Ident ifica tion of test requi sitio n and/o r speci men(s ) was quest ionab le. The below named indiv idual provi ded this burton ed patie nt ident ifica tion. Not Available [facility] [address] [place], [place], [address], 10/23/2023 15:48:25 10/23/19 24 10/23/2023 PATIE NT ID APPRO EDISON TIQ DOCUM ENTAT ION contact FAX Not Available [facility] [place] [facility] [address] [place], [place], [address], 10/23/2023 15:48:25 10/23/19 24 10/23/2023 PATIE NT ID APPRO EDISON TIQ DOCUM ENTAT ION tests affected 395 Not Available [facility] [place] [facility] [address], [place], [address], 10/23/2023 15:48:25 10/23/19 24 10/23/2023 CULTU RE, URINE , ROUTI NE culture, urine, routine SEE NOTE CULTU RE, URINE , ROUTI NE Micro Numbe r: [id number] Test Statu s: Final Speci men [...] Cultu re Trans port Tube. A terry santos repor t has been faxed to the [facility] wing: Faxed to: [phone] on: 10/19 18:29 NO COLLE CTION DATE RECEI ANJANA. WE HAVE USED THE DATE THE SPECI MEN WAS RECEI ANJANA BY THIS LABOR ATORY THE COLLE CTION DATE. IF THIS IS INCOR RECT, PLEAS E CONTA CT CLIEN T SERVI JUANY. PHONE NUMBJesus R: [phone] Not Available [facility] [place] [facility] [address], [place], [address], 10/23/2023 15:48:26 01/14/20 22 01/13/2022 rapid strep group A, throa t Strep negati ve Not Available [facility] [address], [place], [address] 01/13/2022 21:37:04 01/14/20 22 01/13/2022 rapid SARS CoV 2 Ag, QL IA, respi rator y speci men rapid SARS CoV 2 Ag, QL IA, respiratory specimen negati ve Not Available [facility] ed [address] [place] [address], [id number] 01/13/2022 21:37:00 01/14/20 22 01/13/2022 rapid flu (A+B) Flu negati ve Not Available [facility] ed [address] [place] [address], [id number] 01/13/2022 21:36:59 Result Notes None recorded. Medical [...] Not available Not available Not available 02/13/2024 [id number] RxNorm Not Available [facility] - production 4 [...] ONCE DIRECTED BY [facility] AT [facility] active Not Available Not Available No [...] Updated DateTime 4 18 /min 96.9 [degF] 272889. 2 g 100 % 100 % 70 /min 172 mm[Hg] 104 mm[Hg] Not Available [facility] - production 4 18:07:31 Date Recorded Respiratory rate Oxygen saturation Oxygen saturation in Arterial blood by Pulse oximetry Heart rate Body temperature Systolic blood pressure Diastolic blood pressure Provider Name and Address Organization Details Last Updated DateTime 4 18 /min 99 % 99 % 82 /min 97.4 [degF] 132 mm[Hg] 82 mm[Hg] Not Available [employer] - production 4 12:54:21 Date Recorded Oxygen saturation Oxygen saturation in Arterial blood by Pulse oximetry Heart rate Respiratory rate Body temperature Systolic blood pressure Diastolic blood pressure Provider Name and Address Organization Details Last Updated DateTime 4 95 % 95 % 110 /min 20 /min 98.1 [degF] 130 mm[Hg] 90 mm[Hg] Not Available [employer] - production 4 14:16:32 Date Recorded Oxygen saturation Oxygen [...] Updated DateTime 2 96 % 96 % 13501.2 4 g 154.94 cm 97.4 [degF] 20 /min 130 /min 97.4 [degF] 96 % 96 % 130 /min 154.94 cm 52067.2 4 g 20 /min 128 mm[Hg] 84 mm[Hg] 128 mm[Hg] 84 mm[Hg] Not Available [facility] 2 17:44:08 Social History None recorded. Functional [...] [id number] Ray Goyal MD [facility] [address] [place] [address] 01/13/2022 15:51:31 01/17/2022 16:23:27 Cough 99006935 R05.9 COVID, Flu, strep negative. No s/s of pneumonia or asthma exacerbati on. O2 sat normal. Supportive care. Tachycardia 4134317 R00. [address]-T wave changes. HR came down to 103 Hypokalemia 86590876 E87 .6 Repleted [place] 40 [place] [id number] Kiki Martinez MD [facility] [address] [place] [phone] 07/27/2023 18:07:29 07/28/2023 12:52:04 Weakness present [id number] M62.81 [id number] Ray Goyal MD [facility] [address] [place] [address] 10/14/2023 12:50:48 10/15/2023 21:01:10 Dysuria 15149129 R30.0 Recently treated with Macrobid (treated five days prior), now with worsening pain. Amenable to trying antibiotic prior to obtaining culture. Discussed red flag signs for which to seek higher level of care. [id number] Ray Goyal MD [facility] [address] [place] [phone] 11/30/2023 14:02:19 12/01/2023 13:01:16 COVID-19 [id number] U07.1 COVID positive. Flu negative. s/p vaccinatio [...] Lala Member ID Guarantor Name 01/13/[address] [facility] - DOS PRIOR TO 2022 - DUAL ELIGIBLE (MEDICARE REPLACEMENT/ADV ANTAGE - HMO) Miriam Chacon [id number] Miriam Chacon 07/27/[address] [facility] - DOS ON OR AFTER 2022 - DUAL ELIGIBLE - JAIL OPTIONS AND ONE CARE (MEDICARE REPLACEMENT/ADV ANTAGE - HMO) Miriam Chacon [id number] Miriam Chacon 10/14/[address] [facility] - DOS ON OR AFTER 2022 - DUAL ELIGIBLE - JAIL OPTIONS AND ONE CARE (MEDICARE REPLACEMENT/ADV ANTAGE - HMO) Miriam Chacon [id number] Miriam Chacon 11/30/[address] [facility] - DOS ON OR AFTER 2022 - DUAL ELIGIBLE - JAIL OPTIONS AND ONE CARE (MEDICARE REPLACEMENT/ADV ANTAGE - HMO) Miriam Chacon [id number] Miriam Chacon Notes Date Note Type Note Provider Name and Address Organization Details Recorded Time 01/13/2022 text/html HPI: Referral taken over the phone by members primary care sales representative. Member with cold like symptoms since Monday. Member c/o cough, congestion, fatigued and unable to sleep. Home covid test negative. CM unsure if member has phlegm, fever/chills or any hx of asthma/copd. Per CM member safe and stable to wait for an [facility] visit. ................... ................... ................... ................... ................... ................... ................... ........ CRC Nursing Assessment: Comments: CRC RN did not require any additional information to process this visit. ................... ................... ................... ................... ................... ................... ................... ........ Crm Dynamics Developer Note: Sent to a call for a [...] sample obtained; Urine dip: Results uploaded to [employer]; [facility] orders 12 lead ECG, Rapid Strep test, and POC CMP; Rapid strep: neg; blood sample obtained via venous blood draw; CMP results: potassium low; ECG results: uploaded to [employer]. [facility] orders Potassium 40meq PO; Potassium administered. Red flags discussed. Pt has no further questions. ................... ................... ................... ................... ................... ................... ................... ........ Disposition: Fulfilled Ray Goyal MD [address] [facility],[address], [place], [address], [facility] [employer] 01/13/2022 21:38:55 07/27/2023 text/html [facility] Nurse Triage Notes (Loulou Pimentel): Chief Complaints: Weakness/Lethargy PMH: Hypertension, Other Comments: PMH: Hypothyroid, HIV Member was recently seen in the ED for bradycardia in the 50's. No interventions taken related to bradycardia. Member. Feeling weakness and fatigue over the last 2 days. Denies chest pain, shortness of breath or dizziness. Prescribed metoprolol daily for HTN. Unable reach Import Export Manager today. HR 50's today. Reviewed RED flags. Instructed member to call 911 for worsening signs/symptoms. ................... ................... ................... ................... ................... ................... ................... ........ [employer]rm Dynamics Developer Note From Renato Bangura: Pt co fatigue [...] RX metoprolol . Lungs clear no edema. [facility] contacted and advised pt to follow up with pictures editor and pcp. Pt education on signs indicating the ER. ................... ................... ................... ................... ................... ................... ................... ........ Disposition: Esperanza Kiki Martinez MD [address] [facility],[address], [place], [address], [employer] 07/27/2023 18:47:44 10/14/2023 text/html CRC Nurse Triage [...] fever/chills. Member would like to be evaluated. [employer] Developer POC Test Results from Deyanira Guy Urine [...] ................... ................... ................... ................... ................... ................... ........ Crm Dynamics Developer Note From Deyanira Guy: Pt with two [...] up with pcp Monday, red flags reviewed. [employer] Developer Allergies: Cephalexin, Levofloxacin ................... ................... ................... ................... ................... ................... ................... ........ Disposition: Fulfilled Ray Goyal MD [address] [place] [address],[address], [place], [address], [employer] 10/14/2023 13:34:41 11/30/2023 text/html CRC Nurse Triage Notes (Loulou Pimentel): Reason For Request: Pt reporting cold like symptoms > unable to eat in 2 days>issues with her lower back>Legs and arms on the LEFT side are going numb Chief Complaints: Cough, Weakness/Lethargy, Pain PMH: Hypertension, HIV Allergies: Cephalexin, Levofloxacin Comments: Straightening Machine Feeder verified the member's name//address and phone number. Cold symptoms since Monday. + cough, rhinnorhea, and fatigue. Denies fever. Exposed to boyfriend who was sick. Decreased appetite x2 days. Drinking fluids. c/o lower abdominal pain and increased bowel movement frequency. No diarrhea. Education provided on the response time and the member was advised to monitor reported s/s and seek emergency treatment if needed. Crm Dynamics Developer Organization Information for Obinna Chun [employer] Legal Name: [employer]? Address: [address] [place] [address], [place] [address], Billing And Insurance Coordinator: Mark MARTIN No.: [id number] [employer] Developer POC Test Results from Obinna Chun Rapid COVID antigen (15:27:55) COVID: + Rapid influenza antigen (15:27:56) Flu: - Urine Dipstick (15:36:39) Urine leukocytes: NR Urine nitrites: NR Urine urobilinogen: NR Urine protein: NR Urine pH: NR Urine blood: NR Urine specific gravity: NR Urine ketones: NR Urine bilirubin: NR Urine glucose: NR ................... ................... ................... ................... ................... ................... ................... ........ Crm Dynamics Developer Note From Obinna Chun: Dispatched to the call address for a [...] -sob -dizziness -nvd -abd pain -blurred vision. [facility] contacted and ordered flu and covid test with U/A. Covid test was positive negative on flu and urine showed positive ketones and blood. [facility] ordered the patient Paxlovid to her pharmacy [...] worsened.all times are approx.report completed by jah chun. ................... ................... ................... ................... ................... ................... ................... ........ Disposition: Fulfilled Ray Goyal MD [address] [place] [address],[address], [place], [address], [facility] [employer] 11/30/2023 16:52:34 OBGyn Episode No OBEpisode recorded.
--- OUTSIDE RECORDS SUMMARY | 2024-08-13 09:34 | XMS_ITS | Encounter Summary ---
Author Organization [facility] Address [address] [place] [address] Phone Care Team Providers Care Electronic Assembler Group Leader Name Role Phone Kenroy Freeman NIRALI Primary Care Provider [phone] Encounter Details Date Type Department Care Team (Late st Contact Info) Description 09/27/2021 Documentation Only [facility] [address] [place] [address] Jose Martin Mccall MD [address] [place] [address] Social History Tobacco Use Types [...] [facility] [address] [place] [address] Reginaldo Eagle MD [address] [facility] [address] [place] [address] documented as of this encounter Visit Diagnoses Not on filedocumented in this encounter Care Teams Electronic Assembler Group Leader Relationship Specialty Start Date End Date Kenroy Freeman NP [facility] [place] [address] PCP - General Nurse Practitioner 11/15/19 documented as of this encounter
--- OUTSIDE RECORDS SUMMARY | 2024-08-13 09:34 | XMS_ITS | Encounter Summary ---
Author Organization [facility] Address [address] [place] [address] Phone Care Team Providers Care House Carpenter Name Role Phone Kenroy Freeman NIRALI Primary Care Provider [phone] Encounter Details Date Type Department Care Team (Late st Contact Info) Description 05/13/2021 Documentation Only [facility] [address] [address] Jose Martin Mccall MD [address] [place] [address] Social History Tobacco Use Types [...] Visit [facility] [address] [address] Reginaldo Eagle MD [address] [place] [address] documented as of this encounter Visit Diagnoses Not on filedocumented in this encounter Care Teams House Carpenter Relationship Specialty Start Date End Date Kenroy Freeman [place] [address] PCP - General Nurse Practitioner 11/15/19 documented as of this encounter
--- OUTSIDE RECORDS SUMMARY | 2024-08-13 09:34 | XMS_ITS | Encounter Summary ---
Author Organization [facility] Address [address] [place] [address] Phone Care Team Providers Care Milk Bottling Machine Operator Name Role Phone Kenroy Freeman NIRALI Primary Care Provider [phone] Encounter Details Date Type Department Care Team (Late st Contact Info) Description 06/02/2023 Documentation Only [facility] [address] [place] [address] Reanna Goyal [address] [place] [address] Social History Tobacco Use Types [...] Visit [facility] [address] [place] [address] Reginaldo Eagle MD [address] [place] [address] documented as of this encounter Visit Diagnoses Not on filedocumented in this encounter Care Teams Milk Bottling Machine Operator Relationship Specialty Start Date End Date Kenroy Freeman [place] [address] PCP - General Nurse Practitioner 11/15/19 documented as of this encounter
--- OUTSIDE RECORDS SUMMARY | 2024-08-13 09:34 | XMS_ITS | Encounter Summary ---
Author Organization [facility] Address [address] [place] [address] Phone Care Team Providers Care Press Supervisor Name Role Phone Kenroy Freeman NIRALI Primary Care Provider [phone] Encounter Details Date Type Department Care Team (Late st Contact Info) Description 08/18/2021 Documentation Only [facility] [address] [place] [address] Jose Martin Mccall MD [address] [place] [address] Social History Tobacco Use Types [...] [facility] [address] [place] [address] Reginadlo Eagle MD [address] [place] [address] documented as of this encounter Visit Diagnoses Not on filedocumented in this encounter Care Teams Press Supervisor Relationship Specialty Start Date End Date Kenroy Freeman NP [facility] [place] [address] PCP - General Nurse Practitioner 11/15/19 documented as of this encounter
--- OUTSIDE RECORDS SUMMARY | 2024-08-13 09:34 | XMS_ITS | Clinical Summary ---
Author Organization [facility], Address [address] [place] [address] [place] [address] Phone Care Team Providers Care Group Sales Coordinator Name Role Phone Kenroy Freeman NP Primary Care Provider [phone] Allergies Active Allergy Reactions Criticality Noted Date [...] 2 WEEKS FOR 90 DAYS 3 Active Active Problems Problem Noted Date Diagnosed [...] 11/27/2020 Vitamin D deficiency 04/22/2019 021 Immunizations Immunization Administration Dates Next Due H1N1 Inj 02/25/2016 Influenza, MDCK, Quadrivalent, with preservative 01/31/2018 Family History Medical History Relation Comments Heart disease Father [place] Stroke Father Hypertension Mother Cancer Sibling 1 [...] Visit [facility], [address] [place] [address] Reginaldo Eagle MD [address] [place] [id number] Health Maintenance Due Date Last Done Comments Breast Cancer Screening 1965 Hepatitis B Vaccine (1 of 3 - 19+ 3-dose series) 11/11 Colorectal Cancer Screening: Annual FOBT 2014 Colorectal Cancer Screening: Colonoscopy 2014 Colorectal Cancer Screening: Sigmoidoscopy 2014 Pneumococcal Vaccine: 50+ Years (2 of 2 - PCV) 016 03/10/2015 Influenza Vaccine (Season Ended) 2024 02/01/20 18 Pneumococcal Vaccine: Peds ( 0 to 5 Years) and At-Risk Patients (6 to 49 Years) Discontinued 03/10/2015 Insurance [facility] One Care Dual SNP ([id number]) [place] [id number] [place] [address] Care Teams Group Sales Coordinator Relationship Specialty Start Date End Date Kenroy Freeman NP [address] [place] [address] PCP - General Nurse Practitioner 11/15/19
--- OUTSIDE RECORDS SUMMARY | 2024-08-13 09:34 | XMS_ITS | Encounter Summary ---
Author Organization [facility] Address [address] [place] [address] Phone Care Team Providers Care Sort Supervisor Name Role Phone Kenroy Freeman NIRALI Primary Care Provider [phone] Encounter Details Date Type Department Care Team (Late st Contact Info) Description 08/18/2021 Documentation Only [facility] [address] [place] [address] Jose Martin Mccall MD [address] [facility] [place] [address] Social History Tobacco Use Types [...] [facility] [address] [place] [address] Reginaldo Eagle MD [address] [place] [address] documented as of this encounter Visit Diagnoses Not on filedocumented in this encounter Care Teams Sort Supervisor Relationship Specialty Start Date End Date Kenroy Freeman NP [facility] [place] [address] PCP - General Nurse Practitioner 11/15/19 documented as of this encounter
--- OUTSIDE RECORDS SUMMARY | 2024-08-13 09:34 | XMS_ITS | Encounter Summary ---
Author Organization [facility] Address [address] [place] [address] Phone Care Team Providers Care Supply Person Name Role Phone Kenroy Freeman NP Primary Care Provider [phone] Encounter Details Date Type Department Care Team (Late st Contact Info) Description 08/08/2022 Documentation Only [facility] [address] [place] [address] Tonya Wilson PA Social History Tobacco Use [...] Visit [facility] [address] [place] [address] Reginaldo Eagle MD [address] [place] [address] [place] [phone] documented as of this encounter Visit Diagnoses Not on filedocumented in this encounter Care Teams Supply Person Relationship Specialty Start Date End Date Kenroy Freeman NP [address] [place] [address] PCP - General Nurse Practitioner 11/15/19 documented as of this encounter
--- OUTSIDE RECORDS SUMMARY | 2024-08-13 09:34 | XMS_ITS | Encounter Summary ---
Author Organization [facility] Address [address] [place] [address] Phone Care Team Providers Care Facilities Administrator Name Role Phone Kenroy Freeman NIRALI Primary Care Provider [phone] Encounter Details Date Type Department Care Team (Late st Contact Info) Description 10/13/2021 Documentation Only [facility] [address] [place] [address] Jose Martin Mccall MD [address] [facility] [place] [address] Social History Tobacco Use Types [...] Visit [facility] [address] [place] [address] Reginaldo Eagle MD [address] [facility] [address] [facility] [place] [address] documented as of this encounter Visit Diagnoses Not on filedocumented in this encounter Care Teams Facilities Administrator Relationship Specialty Start Date End Date Kenroy Freeman [place] [facility] [address] PCP - General Nurse Practitioner 11/15/19 documented as of this encounter
--- OUTSIDE RECORDS SUMMARY | 2024-08-13 09:34 | XMS_ITS | Encounter Summary ---
Author Organization [facility] Address [address] [place] [address] Phone Care Team Providers Care Associate Professor Of Biostatistics Name Role Phone Kenroy Freeman NP Primary Care Provider [phone] Encounter Details Date Type Department Care Team (Late st Contact Info) Description 09/19/2022 Documentation Only [facility] [address] [place] [address] Tonya Wilson PA Social History Tobacco Use [...] [facility] [address] [place] [address] Reginaldo Eagle MD [address] [place] [address] [place] [id number] documented as of this encounter Visit Diagnoses Not on filedocumented in this encounter Care Teams Associate Professor Of Biostatistics Relationship Specialty Start Date End Date Kenroy Freeman NP [address] [place] [address] PCP - General Nurse Practitioner 11/15/19 documented as of this encounter
--- OUTSIDE RECORDS SUMMARY | 2024-08-13 09:35 | XMS_ITS | Patient Health Record ---
Author Organization [facility] Address [address] [place] [address] Care Team Providers Care Microfilm Duplicating Unit Supervisor Name Role Phone Kenroy Sánchez Primary Care Provider Unav ailable Black, Cherise Unavailable [phone] Allergies Allergen (clinical drug ingredient) Drug/Non Drug [...] Status Risk Notes Problem Acquired hallux valgus (86504490) Hallux valgus (acquired), left foot (M20.12) Active confirmed Problem Acquired hallux valgus (15921049) Hallux valgus (acquired), right foot (M20.11) Active confirmed Problem [id number] 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) Active confirmed Problem [id number] Pronation deformity of right foot (M21.6X1) Active confirmed Plan Of Treatment No Information Insurance Providers Payer Name Payer Address Payer Phone Subscriber Number Group Number Insured Name Patient Relationship to Insured Coverage Start Date Coverage End Date [facility] [employer] Claims [id number] [place] [id number] Miriam Chacon Self - patient is the insured Medical (General) History Medical History History ICD Code Anxiety Depression High blood pressure raynauds disease Sciatica thyroid HIV Surgical History Surgery Date(Month/Year) tubes in ears tubal ligation 2000 shoulder surgery
== END 2024-08-13 09:25 | disposition home or self-care (01) ==
LOC: HO.HWS 09:00
PROVIDERS: PCP Nurse Practitioner Family; Visit Provider Obstetrics & Gynecology
DX: Z12.12 Encounter for screening for malignant neoplasm of rectum (principal)
CPT/HCPCS: 99213

== ENCOUNTER 2024-08-13 09:00 | Outpatient (REF) | payer OTHER, SELFPAY ==
--- OUTSIDE RECORDS SUMMARY | 2024-08-13 10:15 | XMS_ITS | Encounter Summary ---
Author Organization [facility] Address [address] [place] [address] Phone Care Team Providers Care Reaming Machine Operator Name Role Phone Kenroy Freeman NIRALI Primary Care Provider [phone] Encounter Details Date Type Department Care Team (Late st Contact Info) Description 08/18/2022 Documentation Only [facility] [address] [place] [place] [address] Elana Chow[place]ary[place], [place] [address] [place] [address] Social History Tobacco Use Types [...] Visit [facility] [address] [place] [address] Reginaldo Eagle MD [address] [place] [address] documented as of this encounter Visit Diagnoses Not on filedocumented in this encounter Care Teams Reaming Machine Operator Relationship Specialty Start Date End Date Kenroy Freeman NP [facility] [place] [address] PCP - General Nurse Practitioner 11/15/19 documented as of this encounter
--- OUTSIDE RECORDS SUMMARY | 2024-08-13 10:15 | XMS_ITS | Clinical Summary ---
Author Organization [facility] Address [address] [place] [address] [place] [address] Phone Care Team Providers Care Outdoor Emergency Care Technician Name Role Phone Kenroy Freeman NP Primary Care Provider [phone] Allergies Active Allergy Reactions Criticality Noted Date [...] Visit [facility], [address] [place] [address] Reginaldo Eagle MD [address] [facility] [place] [phone] Health Maintenance Due Date Last Done Comments [...] (6 to 49 Years) Discontinued 03/10/2015 Insurance [facility] One [employer] Dual SNP ([id number]) [place] [id number] [place] [id number] Care Teams Outdoor Emergency Care Technician Relationship Specialty Start Date End Date Kenroy Freeman NP [address] [place] [address] PCP - General Nurse Practitioner 11/15/19
--- OUTSIDE RECORDS SUMMARY | 2024-08-13 10:15 | XMS_ITS | Encounter Summary ---
Author Organization [facility] Address [address] [place] [address] Phone Care Team Providers Care Farmer General Name Role Phone Kenroy Freeman NIRALI Primary Care Provider [phone] Encounter Details Date Type Department Care Team (Late st Contact Info) Description 08/18/2021 Documentation Only [facility] [address] [place] [address] Jose Martin Mccall MD [address] [place] [address] Social History Tobacco Use Types [...] Visit [facility] [address] [place] [address] Reginaldo Eagle MD [address] [place] [address] documented as of this encounter Visit Diagnoses Not on filedocumented in this encounter Care Teams Farmer General Relationship Specialty Start Date End Date Kenroy Freeman NP [facility] [place] [address] PCP - General Nurse Practitioner 11/15/19 documented as of this encounter
--- OUTSIDE RECORDS SUMMARY | 2024-08-13 10:15 | XMS_ITS | Encounter Summary ---
Author Organization [facility] Address [address] [place] [address] Phone Care Team Providers Care Coil Connector Name Role Phone Kenroy Freeman NIRALI Primary Care Provider [phone] Encounter Details Date Type Department Care Team (Late st Contact Info) Description 08/18/2021 Documentation Only [facility] [address] [place] [address] Jose Martin Mccall MD [address] [facility] [place] [address] Social History Tobacco Use Types [...] Visit [facility] [address] [place] [address] Reginaldo Eagle MD [address] [facility] [place] [address] documented as of this encounter Visit Diagnoses Not on filedocumented in this encounter Care Teams Coil Connector Relationship Specialty Start Date End Date Kenroy Freeman NP [facility] [place] [address] PCP - General Nurse Practitioner 11/15/19 documented as of this encounter
--- OUTSIDE RECORDS SUMMARY | 2024-08-13 10:15 | XMS_ITS | Encounter Summary ---
Author Organization [facility] Address [address] [place] [address] Phone Care Team Providers Care Applications Sales Consultant Name Role Phone Kenroy Freeman NIRALI Primary Care Provider [phone] Encounter Details Date Type Department Care Team (Late st Contact Info) Description 06/02/2023 Documentation Only [facility] [address] [place] [address] Reanna Goyal [address] [place] [address] Social History Tobacco Use Types [...] Visit [facility] [address] [place] [address] Reginaldo Eagle MD [address] [place] [address] documented as of this encounter Visit Diagnoses Not on filedocumented in this encounter Care Teams Applications Sales Consultant Relationship Specialty Start Date End Date Kenroy Freeman NP [facility] [address] PCP - General Nurse Practitioner 11/15/19 documented as of this encounter
--- OUTSIDE RECORDS SUMMARY | 2024-08-13 10:15 | XMS_ITS | Encounter Summary ---
Author Organization [facility] Address [address] [place] [address] Phone Care Team Providers Care Principal Database Developer Name Role Phone Kenroy Freeman NIRALI Primary Care Provider [phone] Encounter Details Date Type Department Care Team (Late st Contact Info) Description 03/20/2024 Documentation Only [facility] [address] [place] [address] Reanna Goyal [address] [place] [address] Social History Tobacco Use Types [...] Visit [facility] [address] [place] [address] Reginaldo Eagle MD [address] [facility] [place] [address] documented as of this encounter Visit Diagnoses Not on filedocumented in this encounter Care Teams Principal Database Developer Relationship Specialty Start Date End Date Kenroy Freeman NP [facility] [place] [address] PCP - General Nurse Practitioner 11/15/19 documented as of this encounter
--- OUTSIDE RECORDS SUMMARY | 2024-08-13 10:15 | XMS_ITS | Encounter Summary ---
Author Organization [facility] Address [address] [place] [address] Phone Care Team Providers Care Director Of Individual Giving Name Role Phone Kenroy Freeman NP Primary Care Provider Encounter Details Date Type Department Care Team (Late st Contact Info) Description 03/01/2021 Documentation Only [facility] [address] [place] [address] Falguni Whitney PA Social History Tobacco Use [...] Visit [facility] [address] [place] [address] Reginaldo Eagle MD [address] [place] [address] [place] [address] documented as of this encounter Visit Diagnoses Not on filedocumented in this encounter Care Teams Director Of Individual Giving Relationship Specialty Start Date End Date Kenroy Freeman NP [address] [place] [address] PCP - General Nurse Practitioner 11/15/19 documented as of this encounter
--- OUTSIDE RECORDS SUMMARY | 2024-08-13 10:15 | XMS_ITS | Encounter Summary ---
Author Organization [facility] Address [address] [place] [address] Phone Care Team Providers Care Material Loader Name Role Phone Kenroy Freeman NP Primary Care Provider [phone] Encounter Details Date Type Department Care Team (Late st Contact Info) Description 09/19/2022 Documentation Only [facility] [address] [place] [address] Tonya Wilson PA Social History Tobacco Use [...] Visit [facility] [address] [place] [address] Reginaldo Eagle MD [address] [place] [address] [place] [address] documented as of this encounter Visit Diagnoses Not on filedocumented in this encounter Care Teams Material Loader Relationship Specialty Start Date End Date Kenroy Freeman NP [address] [place] [address] PCP - General Nurse Practitioner 11/15/19 documented as of this encounter
--- OUTSIDE RECORDS SUMMARY | 2024-08-13 10:15 | XMS_ITS | Clinical Summary ---
Author Organization [facility] Address [address] [place] [address] Care Team Providers Care Business Services Director Name Role Phone Unavailable Primary Care Provider [...]
--- OUTSIDE RECORDS SUMMARY | 2024-08-13 10:15 | XMS_ITS | Encounter Summary ---
Author Organization [facility] Address [address] [place] [address] Phone Care Team Providers Care Taco Maker Name Role Phone Kenroy Freeman NP Primary Care Provider [phone] Encounter Details Date Type Department Care Team (Late st Contact Info) Description 08/08/2022 Documentation Only [facility] [address] [place] [address] Tonya Wilson PA Social History Tobacco Use [...] [facility] [address] [place] [address] Reginaldo Eagle MD [address] [place] [address] [place] [phone] documented as of this encounter Visit Diagnoses Not on filedocumented in this encounter Care Teams Taco Maker Relationship Specialty Start Date End Date Kenroy Freeman NP [address] [place] [address] PCP - General Nurse Practitioner 11/15/19 documented as of this encounter
--- OUTSIDE RECORDS SUMMARY | 2024-08-13 10:15 | XMS_ITS | Encounter Summary ---
Author Organization [facility] Address [address] [place] [address] Phone Care Team Providers Care Eeg Technician Name Role Phone Kenroy Freeman NIRALI Primary Care Provider [phone] Encounter Details Date Type Department Care Team (Late st Contact Info) Description 10/13/2021 Documentation Only [facility] [address] [place] [address] Jose Martin Mccall MD [address] [facility] [place] [address] Social History Tobacco Use Types [...] Of [facility] [address] [place] [address] Reginaldo Eagle MD [address] [facility] [address] [place] [address] documented as of this encounter Visit Diagnoses Not on filedocumented in this encounter Care Teams Eeg Technician Relationship Specialty Start Date End Date Kenroy Freeman NP [facility] [place] [address] PCP - General Nurse Practitioner 11/15/19 documented as of this encounter
--- OUTSIDE RECORDS SUMMARY | 2024-08-13 10:15 | XMS_ITS | Encounter Summary ---
Author Organization [facility] Address [address] [place] [address] Phone Care Team Providers Care Instruction Librarian Name Role Phone Kenroy Freeman NIRALI Primary Care Provider [phone] Encounter Details Date Type Department Care Team (Late st Contact Info) Description 06/01/2023 Documentation Only [facility] [address] [place] [address] Deya Chowdhury [address] [place] [address] Social History Tobacco Use Types [...] Visit [facility] [address] [place] [address] Reginaldo Eagle MD [address] [place] [address] [place] [address] documented as of this encounter Visit Diagnoses Not on filedocumented in this encounter Care Teams Instruction Librarian Relationship Specialty Start Date End Date Kenroy Freeman NP [facility] [address] PCP - General Nurse Practitioner 11/15/19 documented as of this encounter
--- OUTSIDE RECORDS SUMMARY | 2024-08-13 10:15 | XMS_ITS | Encounter Summary ---
Author Organization [facility] Address [address] [place] [address] Phone Care Team Providers Care Patient Account Analyst Name Role Phone Kenroy Freeman NIRAIL Primary Care Provider [phone] Encounter Details Date Type Department Care Team (Late st Contact Info) Description 09/27/2021 Documentation Only [facility] [address] [place] [address] Jose Martin Mccall MD [address] [facility] [place] [address] Social History Tobacco Use Types [...] Visit [facility] [address] [place] [address] Reginaldo Eagle MD [address] [facility] [place] [address] documented as of this encounter Visit Diagnoses Not on filedocumented in this encounter Care Teams Patient Account Analyst Relationship Specialty Start Date End Date Kenroy Freeman NP [facility] [place] [address] PCP - General Nurse Practitioner 11/15/19 documented as of this encounter
--- OUTSIDE RECORDS SUMMARY | 2024-08-13 10:15 | XMS_ITS | Encounter Summary ---
Author Organization [facility] Address [address] [place] [address] Phone Care Team Providers Care Cuffer Name Role Phone Kenroy Freeman NIRALI Primary Care Provider [phone] Encounter Details Date Type Department Care Team (Late st Contact Info) Description 05/13/2021 Documentation Only [facility] [address] [place] [address] Jose Martin Mccall MD [address] [facility] [place] [address] Social History Tobacco Use Types [...] Services Of [facility] [address] [place] [address] Reginaldo Eagle MD [address] [facility] [place] [address] documented as of this encounter Visit Diagnoses Not on filedocumented in this encounter Care Teams Cuffer Relationship Specialty Start Date End Date Kenroy Freeman NP [facility] [place] [address] PCP - General Nurse Practitioner 11/15/19 documented as of this encounter
[2024-08-16 13:41] LABS: HPV Genotype 16 Negative (Negative); HPV Genotype 18 Negative (Negative); HPV High Risk Negative (Negative)
== END 2024-08-13 09:01 | disposition home or self-care (01) ==
LOC: HO.LNP 09:00
PROVIDERS: PCP Nurse Practitioner Family; Visit Provider Obstetrics & Gynecology
DX: B20 Human immunodeficiency virus [HIV] disease (principal); Z12.12 Encounter for screening for malignant neoplasm of rectum
CPT/HCPCS: 87626; 88175; 99212

== ENCOUNTER 2024-08-28 10:59 | Outpatient (AMB) | payer OTHER, SELFPAY ==
--- NOTE | 2024-08-28 11:00 | A.OFFPC_ITS ---
Vital Signs 08/28/24 11:01 Height 5 ft 1 in Weight 233 lb BMI 44.0 BP 130/84 Blood Pressure Location Lt brachial Position Sitting Respiration 18 Pulse 88 Pulse Source Pulse Oximeter Temp 99.1 F Temp Source Oral Pulse Oximetry (%) 99 Oxygen Delivery Method Room Air Intake Visit Reasons: Annual PE Intake Note: Pt is here today for PE. Allergies amlodipine [AMLODIPINE] Allergy (Unknown, Verified 08/28/24 11:05) RASH cephalexin [From KEFLEX] Allergy (Unknown, Verified 08/28/24 11:05) RASH levofloxacin [From LEVAQUIN] Allergy (Unknown, Verified 08/28/24 11:05) RASH Tobacco use date assessed: 08/28/24 Dental Screening Dental Screen Date: 08/28/24 Did you have a dental visit in the last 12 months?: Yes Did you have a dental problem in the last 6 months where you did not have access to dental care?: No Was dental information given to patient?: Patient has dentist HPI Annual PE HPI Details History of Present Illness The patient is a 58-year-old female presenting for a wellness examination. The patient is morbidly obese and is engaged in regular follow-up with multiple specialists, including infectious disease, urology, nephrology, cardiology, and gynecology. Her preventive health measures are current, with up-to-date colonoscopy and mammogram screenings. The patient denies any acute symptoms such as chest pain, shortness of breath, abdominal disturbances, or urinary issues. She is feeling well and denies any suicidal or homicidal ideation. Health Maintenance - Colonoscopy: Up to date - Mammogram: Up to date -labs were already performed Social History - No specific social determinants of hea lt discussed Review of Systems - Cardiovascular: Denies chest pain or s hortness of breath - Gastrointestinal: Denies abdominal jermain n, blood in stool, constipation, diarrhea - Genitourinary: Denies current urinary issues - Psychiatric: Denies suicidal ideation and homicidal thoughts Physical Exam General: Cooperative, healthy appearing, comfortable, no acute distress and well developed, morbid obesity Orientation: Patient oriented x3 Limitations: No limitations Head: Normal to inspection Ears: Hearing grossly normal bilaterally Nose: Normal external nose present Face and sinus: Normal facial exam Eyes: Appearance normal, both eyes and all related structures Neck: Normal visual inspection and Yes full ROM Respiratory: Normal respiratory effort and able to speak in complete sentences. Clear to auscultation bilaterally Cardiovascular: Regular rate and rhythm. Normal S1 and S2 GI: Normal to inspection. Soft to palpation and nontender Skin: No rashes or lesions noted Neuro: Patient oriented x3 Extremities: Normal to inspection Results Plan The management plan focuses on the patient's wellness and the management of morbid obesity. The patient will continue under the care of her specialists for her chronic conditions. I encourage maintaining her current regimen and continuing preventive health screenings. No new interventions are required at this time due to a lack of new symptoms. Discussion Notes During the visit, I discussed with the patient her current health status and the importance of maintaining her weight. We reviewed her follow-up schedule with the various specialists she sees, which supports her overall health. We affirm her screenings are up to date, which is commendable in her proactive health management approach. I advise her to continue with the current guidelines set by her specialists and report any new symptoms promptly. Patient Instructions - Continue attending regular screenings and follow-up appointments with specialists. - Maintain current health regimen as adv ised by specialists. - Be attentive to any new symptoms and r eport them promptly. - Focus on maintaining a healthy weight. 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 Mother Stroke Sister Diabetes mellitus Maternal Grandmother Unknown family medical history Brother Cancer Sister No problems noted. Brother No problems noted. Daughter Healthy female Social History Housing: Apartment Are you a primary youth care specialist to a significant other at home: No Do you presently have visiting nurse or other home services: No Alcohol intake: current Alcohol intake frequency: holidays/special occasions only Patient Tobacco Use Status: Never used Tobacco e-Cigarette/Vaping Use: Never Used Second Hand Smoke Exposure: No service: No Current occupational status: disabled Cognitive needs: No Hearing needs: No Vision needs: Yes Female Reproductive History Menstrual Age of Menarche: 13 Questionnaire PHQ-9 Over the last 2 weeks, how often have you been bothered by any of the following problems? 1. Little interest or pleasure in doing things: not at all 2. Feeling down, depressed, or hopeless: not at all 3. Trouble falling or staying asleep, or sleeping too much: several days 4. Feeling tired or having little energy: several days 5. Poor appetite or overeating: not at all 6. Feeling bad about yourself - or that you are a failure or have let yourself or your family down: not at all 7. Trouble concentrating on things, such as reading the newspaper or watching te levision: not at all 8. Moving or speaking so slowly that other people could have noticed. Or the opposite - being so fidgety or restless that you have been moving around a lot more than usual: not at all 9. Thoughts that you would be better off or of hurting yourself in some way: not at all Total score: 2 Depression Screening Interpretation: Negative Depression Screening Done: Yes 41850 - PHQ-9 Billing: Yes Source: Developed by Drs. Bud Mosquera, Glory Bullock, Osmar Chamberlain and colleagues, with an educational renetta from [employer]. Thrive Questionnaire Date Thrive assessed: 08/28/24 I am a: Patient What is your living situation today?: I have a steady place to live Within the past 12 months, did the food you bought not last and you didn't have the money to get more?: Sometimes True Within the past 12 months, did you worry whether your food would run out before you got money to buy more?: Sometimes True Do you have trouble paying for medicines?: No Do you have trouble getting transportation to medical appointments?: No Do you have trouble paying your heating and electricity bill?: No Do you have trouble taking care of your child, family member or friend?: No Do you have trouble with day-to-day activities such as bathing, preparing meals, shopping, managing finances, etc.?: No Are you currently unemployed and looking for a job?: No Are you interested in more education?: No Please select the resources that you would like help with: None Currently or been in a relationship where the following occur: No concerns reported THRIVE Score: 2 AUDIT C Alcohol Use Questionnaire (AUDIT-C) 1. How often do you have a drink containing alcohol?: Monthly or less 2. How many drinks containing alcohol do you have on a typical day when you are drinking?: 1 or 2 3. How often do you have six or more drinks on one occasion?: Never Total Score: 1 BRITTNEY-7 AMB Questionnaire BRITTNEY-7 Date BRITTNEY - 7 assessed: 08/28/24 Feeling nervous, anxious, or on edge: 0 = Not at all Not being able to stop or control worryin = Not at all Worrying too much about different things: 1 = Several days Trouble relaxin = Not at all Being so restless that it is hard to sit still: 0 = Not at all Becoming easily annoyed or irritable: 0 = Not at all Feeling afraid as if something awful might happen: 0 = Not at all Total BRITTNEY-7 score (0-4 normal; 5-9 mild; 10-14 moderate; 15-21 severe): 1 Source: Developed by Drs. Bud Mosquera, Glory Bullock, Osmar Chamberlain and colleagues, with an educational renetta from [employer]. BRITTNEY-7 Assessment Billing BRITTNEY-7 Assessment Tool: BRITTNEY-7 Assessment 90173 Physical exam (Primary Care) Vital Signs: Last Vital Signs Temp 99.1 F 08/28/24 11:01 Pulse 88 08/28/24 11:01 Resp 18 08/28/24 11:01 BP 130/84 08/28/24 11:01 Pulse Ox 99 08/28/24 11:01 Oxygen Delivery Method Room Air 08/28/24 11:01 BMI result Body Mass Index 44.0 Tobacco/Smoking Status: Tobacco use Status Tobacco use date assessed 08/28/24 08/28/24 11:07 Patient Tobacco Use Status Never used Tobacco 08/28/24 11:02 e-Cigarette/Vaping Use Never Used 08/28/24 11:02 PHQ-9: PHQ-9 Score PHQ-9: Total score 2 08/28/24 11:07 Depression Screening Interpretation: Negative Thrive Assessment: Date of Thrive Assessment Date Thrive assessed 08/28/24 08/28/24 11:07 Currently or been in a relationship where the following occur: No concerns reported Coding Level of Care Code Est Pt Prev Care 40-64y(70195) Diagnoses Physical exam Z00.00 Additional Codes BRITTNEY-7 Assessment Billing - BRITTNEY-7 Assessment Tool: BRITTNEY-7 Assessment 42616 ([id number]) PHQ-9 - 61251 - PHQ-9 Billing: Yes ([id number]) Assessment & Plan Assessment & Plan (1) Physical exam: Code(s): Z00.00 - Encounter for general adult medical examination without abnormal findings Category: Medical Plan .
[2024-08-28 11:01] VITALS: BP 130/84; PULSE 88; RESP 18; TEMP 37.3; O2SAT 99; BMI 44.0
--- OUTSIDE RECORDS SUMMARY | 2024-08-28 12:02 | XMS_ITS | Encounter Summary ---
Author Organization [facility] Address [address] [place] [address] Phone Care Team Providers Care Av Specialist Name Role Phone Kenroy Freeman NIRALI Primary Care Provider [phone] Encounter Details Date Type Department Care Team (Late st Contact Info) Description 10/13/2021 Documentation Only [facility] [address] [place] [address] Jose Martin Mccall MD [address] [place] [address] Social History Tobacco Use Types [...] Visit [facility] [address] [place] [address] Reginaldo Eagle MD [address] [place] [address] documented as of this encounter Visit Diagnoses Not on filedocumented in this encounter Care Teams Av Specialist Relationship Specialty Start Date End Date Kenroy Freeman NP [facility] [place] [address] PCP - General Nurse Practitioner 11/15/19 documented as of this encounter
--- OUTSIDE RECORDS SUMMARY | 2024-08-28 12:02 | XMS_ITS | Encounter Summary ---
Author Organization [facility] Address [address] [place] [address] Phone Care Team Providers Care Latrine Cleaner Name Role Phone Kenroy Freeman NIRALI Primary Care Provider [phone] Encounter Details Date Type Department Care Team (Late st Contact Info) Description 06/02/2023 Documentation Only [facility] [address] [place] [address] Reanna Goyal [address] [place] [address] Social History Tobacco Use Types [...] [facility] [address] [place] [address] Reginaldo Eagle MD [address] [place] [address] documented as of this encounter Visit Diagnoses Not on filedocumented in this encounter Care Teams Latrine Cleaner Relationship Specialty Start Date End Date Kenroy Freeman [place] [address] PCP - General Nurse Practitioner 11/15/19 documented as of this encounter
--- OUTSIDE RECORDS SUMMARY | 2024-08-28 12:02 | XMS_ITS | Encounter Summary ---
Author Organization [facility] Address [address] [place] [address] Phone Care Team Providers Care Quality Technician Name Role Phone Kenroy Freeman NIRALI Primary Care Provider [phone] Encounter Details Date Type Department Care Team (Late st Contact Info) Description 08/18/2022 Documentation Only [facility] [address] [address] [place] [address] [place] [address] Social History Tobacco Use Types [...] [facility] [address] [address] Reginaldo Eagle MD [address] [place] [address] documented as of this encounter Visit Diagnoses Not on filedocumented in this encounter Care Teams Quality Technician Relationship Specialty Start Date End Date Kenroy Freeman [place] [address] PCP - General Nurse Practitioner 11/15/19 documented as of this encounter
--- OUTSIDE RECORDS SUMMARY | 2024-08-28 12:02 | XMS_ITS | Clinical Summary ---
Author Organization [facility] Address [address] [place] [address] Care Team Providers Care Surgical Device Sales Representative Name Role Phone Unavailable Primary Care Provider [...]
--- OUTSIDE RECORDS SUMMARY | 2024-08-28 12:02 | XMS_ITS | Encounter Summary ---
Author Organization [facility] Address [address] [place] [address] Phone Care Team Providers Care Courier Driver Name Role Phone Kenroy Freeman NIRALI Primary Care Provider [phone] Encounter Details Date Type Department Care Team (Late st Contact Info) Description 03/20/2024 Documentation Only [facility] [address] [place] [address] Reanna Goyal [address] [place] [address] Social History Tobacco Use Types [...] Visit [facility] [address] [place] [address] Reginaldo Eagle MD [address] [facility] [address] [facility] [place] [address] documented as of this encounter Visit Diagnoses Not on filedocumented in this encounter Care Teams Courier Driver Relationship Specialty Start Date End Date Kenroy Freeman NP [facility] [address] PCP - General Nurse Practitioner 11/15/19 documented as of this encounter
--- OUTSIDE RECORDS SUMMARY | 2024-08-28 12:02 | XMS_ITS | Encounter Summary ---
Author Organization [facility] Address [address] [place] [address] Phone Care Team Providers Care Camera Supervisor Name Role Phone Kenroy Freeman NP Primary Care Provider [phone] Encounter Details Date Type Department Care Team (Late st Contact Info) Description 08/08/2022 Documentation Only [facility] [address] [place] [id number] Tonya Wilson PA Social History Tobacco Use [...] [facility] [address] [place] [address] Reginaldo Eagle MD [address] [place] [address] [place] [id number] documented as of this encounter Visit Diagnoses Not on filedocumented in this encounter Care Teams Camera Supervisor Relationship Specialty Start Date End Date Kenroy Freeman NP [address] [place] [address] PCP - General Nurse Practitioner 11/15/19 documented as of this encounter
--- OUTSIDE RECORDS SUMMARY | 2024-08-28 12:02 | XMS_ITS | Data Portability ---
Author Organization [employer] [facility], [place] in - [facility] Address [address] [place] [address] Care Team Providers Care Gauge And Weigh Machine Operator Name Role Phone KATHY TEIXEIRA Primary Care Provider [phone] HIM CCA OTHER Assessment Encounter Date Assessment Date Assessment LastModified by Organization Details LastModified Time 07/27/2023 07/27/2023 As noted, we were called to see this patient regarding concerns of weakness. Evaluation in the field was performed by my lug breaker and wire puller colleague, as noted above, I provided real-time [...] QL IA, respiratory specimen 2023 024 [place] [facility], [address] [place] [address], [phone] 20:47:12 rapid flu (A+B) [address] [facility], [address] [place] [address], [id number] 4 20:47:49 culture, urine 2023 024 [email or web address] [facility], [address], [place], [place], [address], 09:51:23 urinalysis, dipstick 2023 024 [facility] [address] [place] [address], [id number] 4 15:29:52 rapid flu (A+B) [email or web address] [facility], [address] [place] [address], [address] 2 21:38:31 rapid SARS CoV 2 Ag, QL IA, respiratory specimen [email or web address] [facility], [address] [place] [address], [id number] 2 21:38:31 rapid strep group A, throat [email or web address] [facility], [address] [place] [address], [id number] 2 21:38:31 Referral None recorded. Procedures None recorded. Surgeries None recorded. Imaging None recorded. Medication Orders Paxlovid 300 mg (150 mg x 2)-100 mg tablets in a dose pack 2023 [id number], [address] [place], [place], [id number], 4 14:35:21 Bactrim DS 800 mg-160 mg tablet 2023 [facility] #[id number], [address] [place], [place], [id number], 13:03:33 potassium chloride ER 20 mEq tablet,exte [...] ts at testd irect ory.q uestd iagno [employer] .com Not Available [facility] [place] [facility] [address] [place], [place], [address], 10/23/2023 15:48:24 10/23/19 24 10/23/2023 SPECI MEN [...] Patho logis ts (CAP) . Not Available [facility] [address] [place], [place], [address], 10/23/2023 15:48:25 10/23/19 24 10/23/2023 PATIE NT ID APPRO EDISON TIQ DOCUM ENTAT ION comment Ident ifica tion of test requi sitio n and/o r speci men(s ) was quest ionab le. The below named indiv idual provi ded this burton ed patie nt ident ifica tion. Not Available [facility] [address] [place], [place], [address], 10/23/2023 15:48:25 10/23/19 24 10/23/2023 PATIE NT ID APPRO EDISON TIQ DOCUM ENTAT ION contact FAX Not Available [facility] [place] [facility] [address] [place], [place], [address], 10/23/2023 15:48:25 10/23/19 24 10/23/2023 PATIE NT ID APPRO EDISON TIQ DOCUM ENTAT ION tests affected 395 Not Available [facility] [place] [facility] [address], [place], [address], 10/23/2023 15:48:25 10/23/19 24 10/23/2023 CULTU RE, URINE , ROUTI NE culture, urine, routine SEE NOTE CULTU RE, URINE , ROUTI NE Micro Numbe r: [id number] Test Statu s: Final Speci men [...] repor t has been faxed to the [facility]: Faxed to: [phone] on: 10/19 18:29 NO COLLE CTION DATE RECEI ANJANA. WE HAVE USED THE DATE THE SPECI MEN WAS RECEI ANJANA BY THIS LABOR ATORY THE COLLE CTION DATE. IF THIS IS INCOR RECT, PLEAS E CONTA CT CLIEN T SERVI JUANY. PHONE NUMBJesus R: [phone] Not Available [facility] [place] [facility] [address], [place], [address], 10/23/2023 15:48:26 01/14/20 22 01/13/2022 rapid strep group A, throa t Strep negati ve Not Available [facility] [address], [place], [address] 01/13/2022 21:37:04 01/14/20 22 01/13/2022 rapid SARS CoV 2 Ag, QL IA, respi rator y speci men rapid SARS CoV 2 Ag, QL IA, respiratory specimen negati ve Not Available [facility] [address] [place] [address], [address] 01/13/2022 21:37:00 01/14/20 22 01/13/2022 rapid flu (A+B) Flu negati ve Not Available [facility] [address] [place] [address], [address] 01/13/2022 21:36:59 Result Notes None recorded. Medical [...] Not available Not available Not available 02/13/2024 27017 RxNorm Not Available [facility] - production 4 [...] ONCE DIRECTED BY [facility]STRO[facility]LOG[facility] DEPARTMENT AT [facility] active Not Available Not Available No [...] Updated DateTime 4 18 /min 96.9 [degF] 637795. 2 g 100 % 100 % 70 [...] [degF] 132 mm[Hg] 82 mm[Hg] Not Available [facility] - production 4 12:54:21 Date Recorded Oxygen saturation Oxygen saturation in Arterial blood by Pulse oximetry Heart rate Respiratory rate Body temperature Systolic blood pressure Diastolic blood pressure Provider Name and Address Organization Details Last Updated DateTime 4 95 % 95 % 110 /min 20 /min 98.1 [degF] 130 mm[Hg] 90 mm[Hg] Not Available [facility] - production 4 14:16:32 Date Recorded Oxygen [...] Updated DateTime 2 96 % 96 % 92521.2 4 g 154.94 cm 97.4 [degF] 20 /min 130 /min 97.4 [degF] 96 % 96 % 130 /min 154.94 cm 75416.2 4 g 20 /min 128 mm[Hg] 84 mm[Hg] 128 mm[Hg] 84 mm[Hg] Not Available [facility] [email or web address] 2 17:44:08 Social History None recorded. Functional [...] Ray Goyal MD [facility] [address] [place] [address] 01/13/2022 15:51:31 01/17/2022 16:23:27 Cough 72729910 R05.9 COVID, Flu, strep negative. No s/s of pneumonia or asthma exacerbati on. O2 sat normal. Supportive care. Tachycardia 2747988 R00. [address] no [address]-T wave changes. HR came down to 103 Hypokalemia 66308107 E87 .6 Repleted [place] 40 [place] [address] Kiki Martinez MD [facility] - [facility] [address] [place] [address] 07/27/2023 18:07:29 07/28/2023 12:52:04 Weakness present 101675287 M62.81 [id number] Ray Goyal MD [facility] [address] [place] [address] 10/14/2023 12:50:48 10/15/2023 21:01:10 Dysuria 28001158 R30.0 Recently treated with Macrobid (treated five days prior), now with worsening pain. Amenable to trying antibiotic prior to obtaining culture. Discussed red flag signs for which to seek higher level of care. [id number] Ray Goyal MD [facility] [address] [place] [phone] 11/30/2023 14:02:19 12/01/2023 13:01:16 COVID-19 995469373 U07.1 COVID positive. Flu negative. s/p vaccinatio [...] Recorded Advance Directives Directive None Recorded Payers Insurance Date Sequence Insurance Name Policy Number Policy Lala Covered Member ID Lala Member ID Guarantor Name 06/11/2023 1 [facility] - DOS PRIOR TO 2022 - DUAL ELIGIBLE (MEDICARE REPLACEMENT/ADV ANTAGE - HMO) Miriam Chacon [id number] Miriam Chacon 12/01/2023 1 [facility] - DOS ON OR AFTER 2022 - DUAL ELIGIBLE - JAIL OPTIONS AND ONE CARE (MEDICARE REPLACEMENT/ADV ANTAGE - HMO) Miriam Oswaldo [id number] Miriam Gallardo Oswaldo Notes Date Note Type Note Provider Name and Address Organization Details Recorded Time 01/13/2022 text/html HPI: Referral taken over the phone by members healthcare account manager. Member with cold like symptoms since Monday. Member c/o cough, congestion, fatigued and unable to sleep. Home covid test negative. CM unsure if member has phlegm, fever/chills or any hx of asthma/copd. Per CM member safe and stable to wait for an [facility] visit. ................... ................... ................... ................... ................... ................... ................... ........ CRC Nursing Assessment: Comments: CRC RN did not require any additional information to process this visit. ................... ................... ................... ................... ................... ................... ................... ........ Animal Behaviourist Note: Sent to a call for a [...] sample obtained; Urine dip: Results uploaded to [employer]; [facility] orders 12 lead ECG, Rapid Strep test, and POC CMP; Rapid strep: neg; blood sample obtained via venous blood draw; CMP results: potassium low; ECG results: uploaded to [employer]. [facility] orders Potassium 40meq PO; Potassium administered. Red flags discussed. Pt has no further questions. ................... ................... ................... ................... ................... ................... ................... ........ Disposition: Fulfilled Ray Goyal MD [address] [place] [address],[address], [place], [address], [employer] 01/13/2022 21:38:55 07/27/2023 text/html CRC Nurse Triage Notes (Loulou Pimentel): Chief Complaints: Weakness/Lethargy PMH: Hypertension, Other Comments: PMH: Hypothyroid, HIV Member was recently seen in the ED for bradycardia in the 50's. No interventions taken related to bradycardia. Member. Feeling weakness and fatigue over the last 2 days. Denies chest pain, shortness of breath or dizziness. Prescribed metoprolol daily for HTN. Unable reach Truck Dispatcher today. HR 50's today. Reviewed RED flags. Instructed member to call 911 for worsening signs/symptoms. ................... ................... ................... ................... ................... ................... ................... ........ Animal Behaviourist Note From Renato Bangura: Pt co fatigue [...] RX metoprolol . Lungs clear no edema. [facility] contacted and advised pt to follow up with weave room supervisor and pcp. Pt education on signs indicating the ER. ................... ................... ................... ................... ................... ................... ................... ........ Disposition: Fulfilled Kiki Martinez MD [address] [facility],[address], [place], [address], [employer] 07/27/2023 18:47:44 10/14/2023 text/html CRC Nurse Triage [...] fever/chills. Member would like to be evaluated. Animal Behaviourist POC Test Results from Deyanira Guy - VIVI Urine Dipstick (12:54:34) Urine leukocytes: 125 WING [...] ................... ................... ................... ................... ................... ................... ........ Animal Behaviourist Note From Deyanira Guy: Pt with two [...] up with pcp Monday, red flags reviewed. Animal Behaviourist Allergies: Cephalexin, Levofloxacin ................... ................... ................... ................... ................... ................... ................... ........ Disposition: Fulfilled Ray Goyal MD [address] [place] [address],[address], [place], [address], [employer] 10/14/2023 13:34:41 11/30/2023 text/html CRC Nurse Triage Notes (Loulou Pimentel): Reason For Request: Pt reporting cold like symptoms > unable to eat in 2 days>issues with her lower back>Legs and arms on the LEFT side are going numb Chief Complaints: Cough, Weakness/Lethargy, Pain PMH: Hypertension, HIV Allergies: Cephalexin, Levofloxacin Comments: Cabana Attendant verified the member's name//address and phone number. Cold symptoms since Monday. + cough, rhinnorhea, and fatigue. Denies fever. Exposed to boyfriend who was sick. Decreased appetite x2 days. Drinking fluids. c/o lower abdominal pain and increased bowel movement frequency. No diarrhea. Education provided on the response time and the member was advised to monitor reported s/s and seek emergency treatment if needed. Animal Behaviourist Organization Information for Obinna Chun Business Legal Name: [employer]? Address: [address] [place] [address], Disassembler: Mark MARTIN No.: [id number] Animal Behaviourist POC Test Results from Obinna Chun Rapid COVID antigen (15:27:55) COVID: + Rapid influenza antigen (15:27:56) Flu: - Urine Dipstick (15:36:39) Urine leukocytes: NR Urine nitrites: NR Urine urobilinogen: NR Urine protein: NR Urine pH: NR Urine blood: NR Urine specific gravity: NR Urine ketones: NR Urine bilirubin: NR Urine glucose: NR ................... ................... ................... ................... ................... ................... ................... ........ Animal Behaviourist Note From Obinna Chun: Dispatched to the [...] -sob -dizziness -nvd -abd pain -blurred vision. [facility] contacted and ordered flu and covid test with U/A. Covid test was positive negative on flu and urine showed positive ketones and blood. [facility] ordered the patient Paxlovid to her pharmacy [...] ........ Disposition: Fulfilled Ray Goyal MD [address] [facility],[address], [place], [address], [employer] [facility] 11/30/2023 16:52:34 OBGyn Episode No OBEpisode recorded.
--- OUTSIDE RECORDS SUMMARY | 2024-08-28 12:02 | XMS_ITS | Encounter Summary ---
Author Organization [facility] Address [address] [place] [address] Phone Care Team Providers Care Field Marketing Representative Name Role Phone Kenroy Freeman NIRALI Primary Care Provider [phone] Encounter Details Date Type Department Care Team (Late st Contact Info) Description 09/27/2021 Documentation Only [facility] [address] [place] [address] Jose Martin Mccall MD [address] [place] [address] Social History Tobacco Use Types [...] Visit [facility] [address] [address] [place] [address] Reginaldo Eagle MD [address] [place] [address] documented as of this encounter Visit Diagnoses Not on filedocumented in this encounter Care Teams Field Marketing Representative Relationship Specialty Start Date End Date Kenroy Freeman NP [facility] [place] [address] PCP - General Nurse Practitioner 11/15/19 documented as of this encounter
--- OUTSIDE RECORDS SUMMARY | 2024-08-28 12:03 | XMS_ITS | Encounter Summary ---
Author Organization [facility] Address [address] [place] [address] Phone Care Team Providers Care Senior Architectural Designer Name Role Phone Kenroy Freeman NIRALI Primary Care Provider Encounter Details Date Type Department Care Team (Late st Contact Info) Description 05/13/2021 Documentation Only [facility] [address] [place] [address] Jose Martin Mccall MD [address] [place] [address] Social [...] Visit [facility] [address] [place] [address] Reginaldo Eagle MD [address] [place] [address] documented as of this encounter Visit Diagnoses Not on filedocumented in this encounter Care Teams Senior Architectural Designer Relationship Specialty Start Date End Date Kenroy Freeman NP [facility] [place] [address] PCP - General Nurse Practitioner 11/15/19 documented as of this encounter
--- OUTSIDE RECORDS SUMMARY | 2024-08-28 12:03 | XMS_ITS | Encounter Summary ---
Author Organization [facility] Address [address] [place] [address] Phone Care Team Providers Care Alternative Education Teacher Name Role Phone Kenroy Freeman NP Primary Care Provider [phone] Encounter Details Date Type Department Care Team (Late st Contact Info) Description 03/01/2021 Documentation Only [facility] [address] [place] [address] Falguni Whitney PA Social History Tobacco Use [...] Visit [facility] [place] [address] [place] [address] Reginaldo Eagle MD [address] [place] [address] [place] [address] documented as of this encounter Visit Diagnoses Not on filedocumented in this encounter Care Teams Alternative Education Teacher Relationship Specialty Start Date End Date Kenroy Freeman NP [address] [place] [address] PCP - General Nurse Practitioner 11/15/19 documented as of this encounter
--- OUTSIDE RECORDS SUMMARY | 2024-08-28 12:03 | XMS_ITS | Clinical Summary ---
Author Organization [facility], Address [address] [place] [address] [place] [address] Phone Care Team Providers Care Buildings And Grounds Coordinator Name Role Phone Kenroy Freeman NP Primary Care Provider [phone] Allergies Active Allergy Reactions Criticality Noted Date [...] Medical History Relation Comments Heart disease Father [place] Stroke Father Hypertension Mother Cancer Sibling 1 [...] Visit [facility] [place], [address] [place] [address] Reginaldo Eagle MD [address] [place] [address] Health Maintenance Due Date Last Done Comments [...] 49 Years) Discontinued 03/10/2015 Insurance [facility] One Care Dual SNP ([id number]) [place] [id number] [place] [address] Care Teams Buildings And Grounds Coordinator Relationship Specialty Start Date End Date Kenroy Freeman NP [address] [place] [address] PCP - General Nurse Practitioner 11/15/19
--- OUTSIDE RECORDS SUMMARY | 2024-08-28 12:03 | XMS_ITS | Encounter Summary ---
Author Organization [facility] Address [address] [place] [address] Phone Care Team Providers Care Vending Stand Supervisor Name Role Phone Kenroy Freeman NIRALI Primary Care Provider [phone] Encounter Details Date Type Department Care Team (Late st Contact Info) Description 08/18/2021 Documentation Only [facility] [address] [place] [address] Jose Martin Mccall MD [address] [place] [address] Social History Tobacco Use Types [...] Visit [facility] [address] [place] [address] Reginaldo Eagle MD [address] [place] [address] documented as of this encounter Visit Diagnoses Not on filedocumented in this encounter Care Teams Vending Stand Supervisor Relationship Specialty Start Date End Date Kenroy Freeman [place] [address] PCP - General Nurse Practitioner 11/15/19 documented as of this encounter
--- OUTSIDE RECORDS SUMMARY | 2024-08-28 12:03 | XMS_ITS | Encounter Summary ---
Author Organization [facility] Address [address] [place] [address] Phone Care Team Providers Care Fish Fryer Name Role Phone Kenroy Freeman NP Primary Care Provider [phone] Encounter Details Date Type Department Care Team (Late st Contact Info) Description 09/19/2022 Documentation Only [facility] [address] [place] [address] Tonya Wilson PA Social History Tobacco Use [...] Visit [facility] [address] [place] [address] Reginaldo Eagle MD [address] [place] [address] [place] [phone] documented as of this encounter Visit Diagnoses Not on filedocumented in this encounter Care Teams Fish Fryer Relationship Specialty Start Date End Date Kenroy Freeman NP [address] [place] [address] PCP - General Nurse Practitioner 11/15/19 documented as of this encounter
--- OUTSIDE RECORDS SUMMARY | 2024-08-28 12:03 | XMS_ITS | Patient Health Record ---
Author Organization [facility] Address [address] [place] [address] Care Team Providers Care Billet Sawyer Name Role Phone Kenroy Sánchez Primary Care Provider Unav ailable Black, Cherise Unavailable [phone] Allergies Allergen (clinical drug ingredient) Drug/Non Drug [...] Status Risk Notes Problem Acquired hallux valgus (33583688) Hallux valgus (acquired), left foot (M20.12) Active confirmed Problem Acquired hallux valgus (49069919) Hallux valgus (acquired), right foot (M20.11) Active confirmed Problem 887501370 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) Active confirmed Problem 515634173 Pronation deformity of right foot (M21.6X1) Active confirmed Plan Of Treatment No Information Insurance Providers Payer Name Payer Address Payer Phone Subscriber Number Group Number Insured Name Patient Relationship to Insured Coverage Start Date Coverage End Date [facility] [employer] Claims [address] [place] [address] [id number] Miriam Chacon Self - patient is the insured Medical (General) History Medical History History ICD Code Anxiety Depression High blood pressure raynauds disease Sciatica thyroid HIV Surgical History Surgery Date(Month/Year) tubes in ears tubal ligation 2000 shoulder surgery
--- OUTSIDE RECORDS SUMMARY | 2024-08-28 12:03 | XMS_ITS | Encounter Summary ---
Author Organization [facility] Address [address] [place] [address] Phone Care Team Providers Care Manufacturing Sales Representative Name Role Phone Kenroy Freeman NIRALI Primary Care Provider [phone] Encounter Details Date Type Department Care Team (Late st Contact Info) Description 08/18/2021 Documentation Only [facility] [address] [place] [address] Jose Martin Mccall MD [address] [facility] [place] [address] Social History Tobacco Use Types [...] [facility] [address] [place] [address] Reginaldo Eagle MD [address] [facility] [place] [address] documented as of this encounter Visit Diagnoses Not on filedocumented in this encounter Care Teams Manufacturing Sales Representative Relationship Specialty Start Date End Date Kenroy Freeman NP [facility] [place] [address] PCP - General Nurse Practitioner 11/15/19 documented as of this encounter
--- OUTSIDE RECORDS SUMMARY | 2024-08-28 12:03 | XMS_ITS | Encounter Summary ---
Author Organization [facility] Address [address] [place] [address] Phone Care Team Providers Care Vegetable Specker Name Role Phone Kenroy Freeman NIRALI Primary Care Provider [phone] Encounter Details Date Type Department Care Team (Late st Contact Info) Description 06/01/2023 Documentation Only [facility] [address] [place] [address] Deya Chowdhury [address] [place] [address] Social History Tobacco Use Types [...] Visit [facility] [address] [place] [address] Reginaldo Eagle MD [address] [place] [address] [place] [address] documented as of this encounter Visit Diagnoses Not on filedocumented in this encounter Care Teams Vegetable Specker Relationship Specialty Start Date End Date Kenroy Freeman NP [facility] [place] [address] PCP - General Nurse Practitioner 11/15/19 documented as of this encounter
== END 2024-08-28 11:26 | disposition home or self-care (01) ==
LOC: HO.HMCC 11:00
PROVIDERS: PCP Nurse Practitioner Family; Visit Provider Nurse Practitioner Family
DX: Z00.00 Encounter for general adult medical examination without abnormal findings (principal)

== ENCOUNTER → 2024-08-28 10:59 | Outpatient (BNVA) | payer OTHER, SELFPAY | PROVIDERS: PCP Nurse Practitioner Family; Visit Provider Nurse Practitioner Family | DX: Z00.00 Encounter for general adult medical examination without abnormal findings (principal); E66.01 Morbid (severe) obesity due to excess calories; Z68.44 Body mass index [BMI] 60.0-69.9, adult | CPT/HCPCS: 96127; 99396 ==

== ENCOUNTER 2024-09-19 13:29 | Outpatient (AMB) | payer OTHER, SELFPAY ==
--- NOTE | 2024-09-19 13:31 | A.OFFVIS_ITS ---
Vital Signs 09/19/24 13:35 Height 5 ft 1 in Weight 233 lb BMI 44.0 Intake Visit Reasons: Inj- Right knee Durolane inj Intake Note: Miriam is a 58 year old female who presents today for a right knee Durolane gel injection. The patient describes her right knee pain as sharp in nature. She has had cortisone injections in the past which gave her minimal relief. She has also done physical therapy exercises which aggravated her pain. She has tried Tylenol and anti-inflammatory medicines which gave her minimal relief. She wishes to hold off on total knee replacement surgery if at all possible. Allergies amlodipine [AMLODIPINE] Allergy (Unknown, Verified 09/19/24 13:35) RASH cephalexin [From KEFLEX] Allergy (Unknown, Verified 09/19/24 13:35) RASH levofloxacin [From LEVAQUIN] Allergy (Unknown, Verified 09/19/24 13:35) RASH Medication List - Last Reconciled 09/19/24 by Kp Cannon MD acetaminophen (Tylenol Extra Strength) 1,000 mg (2 x 500 mg) PO Q6H PRN albuterol sulfate 90 mcg/actuation (Ventolin HFA) 1 inh inhalation QID PRN alirocumab (Praluent Pen) 75 mg subcut Q2W 90 days aspirin (Adult Aspirin Regimen) 81 mg PO DAILY 90 days atorvastatin 80 mg PO DAILY nmbptqakj-dxeghplh-cdsgoum ala 50-200-25 mg (Biktarvy) 1 tab PO DAILY 90 days cyanocobalamin (vitamin B-12) 1,000 mcg IM Q4W 3 months ezetimibe 10 mg PO DAILY levothyroxine 88 mcg PO DAILY levothyroxine 100 mcg orally once a week; take 88mcg all other days of the week lorazepam 1 mg PO BEDTIME PRN metoprolol succinate ER 100 mg PO BID nifedipine ER 30 mg PO DAILY [facility] Medical History 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 Anxiety Chronic kidney disease, stage 2 (mild) Morbid obesity Other and unspecified hyperlipidemia Essential hypertension Atherosclerotic cardiovascular disease Pituitary microadenoma Vitamin D deficiency Graves disease Post-surgical hypothyroidism Osteoarthritis GERD (gastroesophageal reflux disease) Leukopenia Cervical radiculitis Lumbar radiculopathy Pernicious anemia Obstructive sleep apnea Raynaud's phenomenon Pituitary microadenoma 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 Mother Stroke Sister Diabetes mellitus Maternal Grandmother Unknown family medical history Brother Cancer Sister No problems noted. Brother No problems noted. Daughter Healthy female Social History Housing: Apartment Are you a primary day care aide to a significant other at home: No Do you presently have visiting nurse or other home services: No Alcohol intake: current Alcohol intake frequency: holidays/special occasions only Patient Tobacco Use Status: Never used Tobacco e-Cigarette/Vaping Use: Never Used Second Hand Smoke Exposure: No service: No Current occupational status: disabled Cognitive needs: No Hearing needs: No Vision needs: Yes Female Reproductive History Menstrual Age of Menarche: 13 Physical Exam Vital Signs: BMI result Body Mass Index 44.0 Const Other: Well-nourished well-developed very friendly female awake alert and oriented x3 in no acute distress Extrem Other: Bilateral lower extremity examination shows good capillary refill, no skin lesions noted, normal sensation light touch Right knee examination shows a minimal effusion, palpable crepitus with range of motion, pain with range of motion, no instability Office Procedures AMB Joint Injection/Aspiration Joint Injection/Aspiration Primary Site: right knee Prep: site was prepped using aseptic technique Injected: 60 mg of (Durolane viscosupplementation) and 1% plain lidocaine Procedure: The patient tolerated the procedure well Coding 74359 - Large joint Procedure code (CPT) selection complete Results Reviewed Results Reviewed: X-rays of the patient's right knee taken previously show joint space narrowing, subchondral sclerosis, no acute bony abnormalities Assessment & Plan Assessment & Plan (1) Osteoarthritis of right knee: Code(s): M17.11 - Unilateral primary osteoarthritis, right knee Category: Medical Plan Ms. Chacon presents with right knee pain due to osteoarthritis. The risks and benefits of a right knee Durolane viscosupplementation injection were discussed at length with the patient. The patient wished to proceed. She tolerated the injection well. She will continue with her home exercise program. She will contact me prior to her follow-up appointment in 3 months should any questions or concerns arise. Feel free to call me at any time should questions regarding her orthopedic management arise. I spent 21 minutes in reviewing the patient's records and imaging studies, seeing the patient and documenting in the medical record. Orders: Orders AMB Joint Injection/Aspiration Today M17.11 - Unilateral primary osteoarthritis, right knee Coding Level of Care Code Est Pt Level 3 (61057) Complex EM visit Add On G2211 Diagnoses Osteoarthritis of right knee M17.11 CPT Codes Coding - 59351 Large joint: 78813 - Large joint ([id number])
[2024-09-19 13:35] VITALS: BMI 44.0
--- OUTSIDE RECORDS SUMMARY | 2024-09-19 15:58 | XMS_ITS | Clinical Summary ---
Author Organization [facility] it Address [address] [place] [address] Care Team Providers Care Engineer Steam Name Role Phone Unavailable Primary Care Provider [...]
== END 2024-09-19 13:49 | disposition home or self-care (01) ==
LOC: HO.HOS 13:30
PROVIDERS: PCP Nurse Practitioner Family; Visit Provider Orthopaedic Surgery
DX: M17.11 Unilateral primary osteoarthritis, right knee (principal)
CPT/HCPCS: 20610; 99213

== ENCOUNTER → 2024-09-19 13:29 | Outpatient (BNVA) | payer OTHER, SELFPAY | PROVIDERS: PCP Nurse Practitioner Family; Visit Provider Orthopaedic Surgery | DX: M17.11 Unilateral primary osteoarthritis, right knee (principal) | CPT/HCPCS: 20610; 99212; J2003; J7318 ==

== ENCOUNTER 2024-11-26 14:31 | Outpatient (AMB) | payer OTHER, SELFPAY ==
--- NOTE | 2024-11-26 14:38 | MHC.OFFWIV ---
Intake Vital Signs 11/26/24 14:39 Height 5 ft 1 in Weight 234 lb BMI 44.2 BP 174/108 H Blood Pressure Location Rt brachial Position Sitting Pulse 59 Pulse Source Pulse Oximeter Temp 98.3 F Temp Source Oral Pulse Oximetry (%) 97 Oxygen Delivery Method Room Air Intake Visit Reasons: EP-Low bp 125 over 88 pulse 53, headaches,shaky Patient Tobacco Use Status: Never used Tobacco Zoology Professor Required: No Is last menstrual period known: No Post menopausal: Yes Patient : No Allergies amlodipine (AMLODIPINE) Allergy (Unknown, Verified 11/26/24 14:50) RASH cephalexin (From KEFLEX) Allergy (Unknown, Verified 11/26/24 14:50) RASH levofloxacin (From LEVAQUIN) Allergy (Unknown, Verified 11/26/24 14:50) RASH Do you need a note to return to daycare/school/sports/work: No HPI HPI Comments History of Present Illness Details History - The patient is a 59-year-old female with past med hx of nephrocalcinosis, kidney stones, CKD3, hypothyroidism s/p thryoidectomy, BANDAR, mitral regurg, HTN, HLD, pituitary microadenoma and HIV on Biktarvy presenting with elevated blood pressure and associated symptoms. - Reports of high blood pressure despite adherence to metoprolol and nifedipine, with symptoms of fatigue, dizziness, and headaches. Headaches improve when she lays down and takes tylenol. Is compliant with her blood pressure medications as well as all of her other medications. - Hypothyroidism: Managed with levothyroxine, with last thyroid function test showing low normal levels 01/2024. - Chronic Kidney Disease: Stage 3A, under nephrology care, with recent adequate blood pressure control at last visit. - Elevated Vitamin B12: Previously elevated due to injections, now discontinued. Physical Exam General: Cooperative, healthy appearing, comfortable, no acute distress and well developed Orientation: Patient oriented x3 Limitations: No limitations Head: Normal to inspection Ears: Hearing grossly normal bilaterally Nose: Normal External nose present Face and sinus: Normal facial exam Mouth: normal, moist oral mucosa Eyes: Appearance normal, both eyes and all related structures Neck: Normal visual inspection and Yes full ROM Respiratory: Normal respiratory effort and able to speak in complete sentences. Skin: no rashes or lesions noted Neuro: Patient oriented x3 Extremities: moving all extremities normally [facility] Medical History (Updated 11/26/24 @ 15:32 by Leigha Croft PA-C) CKD (chronic kidney disease) stage 3, GFR 30-59 ml/min 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 Anxiety Morbid obesity Other and unspecified hyperlipidemia Essential hypertension Atherosclerotic cardiovascular disease Pituitary microadenoma Vitamin D deficiency Graves disease Post-surgical hypothyroidism Osteoarthritis GERD (gastroesophageal reflux disease) Leukopenia Cervical radiculitis Lumbar radiculopathy Pernicious anemia Obstructive sleep apnea Raynaud's phenomenon Pituitary microadenoma 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 Mother Stroke Sister Diabetes mellitus Maternal Grandmother Unknown family medical history Brother Cancer Sister No problems noted. Brother No problems noted. Daughter Healthy female Social History Housing: Apartment Are you a primary geriatric personal care aide to a significant other at home: No Do you presently have visiting nurse or other home services: No Alcohol intake: current Alcohol intake frequency: holidays/special occasions only Patient Tobacco Use Status: Never used Tobacco e-Cigarette/Vaping Use: Never Used Second Hand Smoke Exposure: No Patient : No service: No Current occupational status: disabled Cognitive needs: No Hearing needs: No Vision needs: Yes Female Reproductive History Menstrual Age of Menarche: 13 Review of Systems Const All systems reviewed & are unremarkable except as noted in HPI and below Physical Exam Vital Signs: Last Vital Signs Temp 98.3 F 11/26/24 14:39 Pulse 59 11/26/24 14:39 BP 174/108 H 11/26/24 14:39 Pulse Ox 97 11/26/24 14:39 Oxygen Delivery Method Room Air 11/26/24 14:39 BMI result Body Mass Index 44.2 Assessment & Plan Assessment & Plan (1) Hypertensive urgency: Code(s): I16.0 - Hypertensive urgency Plan: Plan Patient was informed and verbally consented to the use of an ambient scribe for clinic note documentation during this visit - As patient is hypertensive 174/102 and symptomatic, she technically is in hypertensive urgency, needs to go to the emergency department to have labs done to rule out hypertensive emergency and BP lowered slowly. Patient is willing and asking to go to the emergency department, so we will call an ambulance. - Called [facility] ED with expect, spoke to Sierra, 3:30pm. Coding Level of Care Code Est Pt Level 5 (71566) Diagnoses Hypertensive urgency I16.0
[2024-11-26 14:39] VITALS: BP 174/108; PULSE 59; TEMP 36.8; O2SAT 97; BMI 44.2
--- OUTSIDE RECORDS SUMMARY | 2024-11-26 15:27 | XMS_ITS | Clinical Summary ---
Author Organization [facility] ity Address [address] [place] [address] Care Team Providers Care Housekeeper Supervisor Name Role Phone Unavailable Primary Care Provider [...] Vaccine ( - 2023-2 5 season) 2023 Depression Screening 04/17/2024 Influenza Vaccine (#1) 2024 RSV Immunization Adult Patie nts (1 - 1-dose 75+ series) 2040 HIB Vaccines Aged Out No longer eligi [...]
--- OUTSIDE RECORDS SUMMARY | 2024-11-26 15:27 | XMS_ITS | Patient Health Record ---
[facility] Address [address] [place] [address] Care Team Providers Care Vehicle Delivery Worker Name Role Phone Kenroy Sánchez Primary Care Provider Unav ailable Black, Cherise Unavailable [phone] Allergies Allergen (clinical drug ingredient) Drug/Non Drug [...] 10 MG 1 tablet Orally Once a day; Duration: 30 day(s) Active Biktarvy Active Spironolactone 50 MG 1 tablet Orally Onc e a day; Duration: 30 day(s) Active Metoprolol Succinate 100 MG 1 capsule Or ally Once a day; Duration: 30 day(s) Active Atorvastatin Calcium 80 MG 1 tablet Oral ly Once a day; Duration: 30 day(s) Active NIFEdipine ER 30 MG 1 tablet on an empty stomach Orally Once a day; Duration: 30 day(s) Active Aspirin 81 MG 1 tablet Orally Once a day; Duration: 30 day(s) Active Immunizations Vaccine Route Administration [...] Status Risk Notes Problem Acquired hallux valgus (17668059) Hallux valgus (acquired), left foot (M20.12) Active confirmed Problem Acquired hallux valgus (01522533) Hallux valgus (acquired), right foot (M20.11) Active confirmed Problem 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) Active confirmed Problem Pronation deformity of right foot (M21.6X1) Active confirmed Plan Of Treatment No Information Insurance Providers Payer Name Payer Address Payer Phone Subscriber Number Group Number Insured Name Patient Relationship to Insured Coverage Start Date Coverage End Date [facility] [employer] Claims [address] [place] [phone] [id number] Miriam Chacon Self - patient is the insured Medical (General) History Medical History History ICD Code Anxiety Depression High blood pressure raynauds disease Sciatica thyroid HIV Surgical History Surgery Date(Month/Year) tubes in ears tubal ligation 2000 shoulder surgery
--- OUTSIDE RECORDS SUMMARY | 2024-11-26 15:27 | XMS_ITS | Clinical Summary ---
Author Organization [facility] Address [address] [address] Phone Care Team Providers Care Laborer/Key Man Name Role Phone [place]yes [place] MD Primary Care Provider [phone] Allergies Active Allergy Reactions Criticality Noted Date Comments Amlodipine Rash Low 09/24/2018 Cephalexin Rash Low 09/24/2018 Levofloxacin Rash Low 09/24/2018 Medications cloNIDine HCl (CATAPRES) 0.2 MG tablet Take 0.2 mg by mouth 2 (two) times a day. Active metoprolol succinate (TOPROL-XL) 100 MG 24 hr tablet Take 50 mg by mouth daily. Active spironolactone (ALDACTONE) 50 MG tablet Take 50 mg by mouth 2 (two) times a day. Active olmesartan (BENICAR) 40 mg tablet Take 40 mg by mouth daily. Active cholecalciferol (VITAMIN D3) 50,000 unit tablet Take 50,000 Units by mouth once a week. Active aspirin 81 mg chewable tablet Take 81 mg by mouth daily. Active atorvastatin (LIPITOR) 80 MG tablet Take 80 mg by mouth daily. Active PARoxetine (PAXIL) 30 MG tablet Take 30 mg by mouth every morning. Active terazosin (HYTRIN) 2 MG capsule Take 2 mg by mouth nightly at bedtime. Active cyanocobalamin, vitamin B-12, (B-12 COMPLIANCE) 1,000 mcg/mL Kit Inject 1,000 mcg as directed every 28 days. Use as directed Active bictegravir-emtr icitabine-tenofo vir alafenamide (BIKTARVY) 50-200-25 mg per tablet Take 1 tablet by mouth daily. Active indapamide (LOZOL) 2.5 mg tablet Take 0.5 tablets (1.25 mg total) by mouth every morning. 90 tablet 3 9 Active Additional Information Patient not taking.Reported on 04/20/2021 NIFEdipine (PROCARDIA XL) 30 MG 24 hr tablet TAKE 1 TABLET(30 MG) BY MOUTH DAILY 90 tablet 3 9 Active levothyroxine sodium (LEVOTHYROXINE ORAL) Take 88 mcg by mouth. Active EZETIMIBE ORAL Take by mouth. Active alirocumab (PRALUENT PEN SUBQ) Inject under the skin. Active Social History Tobacco Use Types Packs/Day Years Used Date Smoking Tobacco: Never Smokeless Tobacco: Never Education Answer Date Recorded Are you interested in more education? Not on fan e 08/12/2022 Are you concerned about learning? Not on file 08/12/2022 No 08/12/2022 No 08/12/2022 Digital Access Answer Date Recorded No 09/10/2022 No 09/10/2022 No 09/10/2022 Reliable internet access at home? Not on file 09/10/2022 Device with a working camera? Not on file Comments No Sex and Gender Information Value Date Recorded Sex Assigned at Not on file Legal Sex Female 9:40 PM EDT Gender Identity Not on file Sexual Orientation Not on file Last Filed Vital Signs Vital Sign Reading Time Taken Comments Blood Pressure 158/102 09/24/2018 3:45 PM EDT Pulse 81 09/24/2018 3:45 PM EDT Temperature 36 C (96.8 F) 08/03/2021 8:52 AM EDT Respiratory Rate - - Oxygen Saturation - - Inhaled Oxygen Concentration - - Weight 103.8 kg (228 lb 14.4 oz) 08/03/2021 8:52 AM EDT Height 154.9 cm (5' 1 ) 08/03/2021 8:52 AM EDT Body Mass Index 43.25 08/03/2021 8:52 AM EDT Plan of Treatment Health Maintenance Due Date Last Done Comments CREATININE LEVEL 1965 LIPID PANEL 1965 POTASSIUM LEVEL 1965 TSH LEVEL 1965 HEPATITIS C SCREENING 11/12/1983 HIV ONE-TIME SCREENING (18-6 5 YEARS) 11/12/1983 PAP SMEAR 1986 MAMMOGRAM 2005 COLOGUARD 2010 COLONOSCOPY 2010 COLORECTAL CANCER SCREENING 2010 FIT TEST 2010 FOBT 2010 SIGMOIDOSCOPY 2010 VIRTUAL COLONOSCOPY 2010 ZOSTER VACCINES (1 of 2) 11/12/2015 PNEUMOCOCCAL VACCINES (50+ years) (2 of 2 - PCV) 03/10/2016 03/10/2015 DEPRESSION SCREENING 09/25/2019 09/24/2018 COVID-19 VACCINE (3 - 2023-2 5 season) 2023 08/31/2020, 08/10/2020 Adult Td,Tdap Booster 09/28/2027 09/27/2017 SMOKING STATUS SCREENING (On ce After 26 Yrs) Completed 08/03/2021 HEPATITIS A VACCINES Aged Out No long er eligible based on patient's age to complete this topic HIB VACCINES Aged Out No longer eligi ble based on patient's age to complete this topic MENINGOCOCCAL VACCINES (ACWY) Aged Out No longer eligible based on patient's age to complete this topic MENINGOCOCCAL VACCINES (B) Aged Out N o longer eligible based on patient's age to complete this topic Medical Devices Not on [place] [address] [place] [address] [employer] MEDICARE REPLACEMENT MEDICARE REPLACEMENT MEDICARE [place] [address] [place] [address] MEDICARE REPLACEMENT MEDICARE REPLACEMENT MEDICARE REPLACEMENT MEDICARE REPLACEMENT MEDICARE REPLACEMENT [facility] MEDICARE REPLACEMENT Care Teams Laborer/Key Man Relationship Specialty Start Date End Date Reyes [place] MD PCP - General Internal Medicine 08/22/18 Additional Source Comments The information contained in this document represents components of the legal health record. It is not the complete legal health record.[facility]
--- OUTSIDE RECORDS SUMMARY | 2024-11-26 15:27 | XMS_ITS | Encounter Summary ---
Author Organization [facility] Address [address] [place] [address] Phone Care Team Providers Care Archery Equipment Hay Sorter Name Role Phone Kenroy Freeman NIRALI Primary Care Provider [phone] Encounter Details Date Type Department Care Team (Late st Contact Info) Description 08/18/2021 Documentation Only [facility] [address] [place] [address] Jose Martin Mccall MD [address] [place] [address] Social History Tobacco Use Types [...] Care Team (Late st Contact Info) Description 01/28/2025 10:50 AM EDT Office Visit [facility] [address] [place] [address] Reginaldo Eagle MD [address] [place] [address] documented as of this encounter Visit Diagnoses Not on filedocumented in this encounter Care Teams Archery Equipment Hay Sorter Relationship Specialty Start Date End Date Kenroy Freeman NP [facility] [place] [address] PCP - General Nurse Practitioner 11/15/19 documented as of this encounter
== END 2024-11-26 15:58 | disposition home or self-care (01) ==
PROVIDERS: PCP Nurse Practitioner Family; Visit Provider Physician Assistant
DX: I16.0 Hypertensive urgency (principal)

== ENCOUNTER → 2024-11-26 14:31 | Outpatient (BNVA) | payer OTHER, SELFPAY | PROVIDERS: PCP Nurse Practitioner Family; Visit Provider Physician Assistant | DX: I16.0 Hypertensive urgency (principal); I12.9 Hypertensive chronic kidney disease with stage 1 through stage 4 chronic kidney disease, or unspecified chronic kidney disease; N18.31 Chronic kidney disease, stage 3a; Z79.899 Other long term (current) drug therapy | CPT/HCPCS: 99212 ==

== ENCOUNTER 2024-11-26 16:00 | Emergency (ER) | payer OTHER, SELFPAY ==
[2024-11-26 16:10] VITALS: BP 150/77; PULSE 54; RESP 20; TEMP 37.1; O2SAT 99; BMI 44.6
--- NOTE | 2024-11-26 16:16 | ECG_ITS ---
Test Reason : HTN Blood Pressure : */* mmHG Vent. Rate : 55 BPM Atrial Rate : 55 BPM P-R Int : 178 ms QRS Dur : 88 ms QT Int : 462 ms P-R-T Axes : 73 12 19 degrees QTcB Int : 441 ms Sinus bradycardia Minimal voltage criteria for LVH, may be normal variant ( Javan product ) Nonspecific ST abnormality Abnormal ECG When compared with ECG of 25-Jul-2023 18:03, No significant change was found Referred By: Allan Clayton Electronically Signed By: Ward Arenas
--- NOTE | 2024-11-26 16:18 | ED.GENADULT ---
HPI - General Adult General Chief complaint: General Medical Stated complaint: HIGH BP Time Seen by Provider: 11/26/24 16:01 History of Present Illness ED Provider: Allan Clayton MD HPI narrative: 59-year-old female with history of f nephrocalcinosis, kidney stones, CKD3, hypothyroidism s/p thryoidectomy, BANDAR, mitral regurg, HTN, HLD, pituitary microadenoma and HIV on Biktarvy she presents with generalized symptoms including malaise generalized weakness slight off balance feeling. No chest pain. She describes a mild headache only to the superior orbital area around the left eyebrow no vision changes focal neurologic complaints Related Data Home Medications ?Medication ?Instructions ?Recorded ?Confirmed lorazepam 1 mg tablet 1 mg PO BEDTIME PRN Anxiety 06/18/21 09/19/24 Previous Rx's ?Medication ?Instructions ?Recorded alirocumab 75 mg/mL subcutaneous 75 mg subcut Q2W 90 days #7 mL 07/25/23 pen injector (Praluent Pen) acetaminophen 500 mg tablet 1,000 mg (2 x 500 mg) PO Q6H PRN 10/22/23 (Tylenol Extra Strength) fever or pain #20 tabs metoprolol succinate 100 mg 100 mg PO BID #180 tabs 01/26/24 tablet,extended release 24 hr nifedipine 30 mg tablet,extended 30 mg PO DAILY #90 tabs 02/13/24 release albuterol sulfate 90 mcg/actuation 1 inh inhalation QID PRN shortness 06/23/24 aerosol inhaler (Ventolin HFA) of breath or wheezing #8.5 grams bictegravir 50 mg-emtricitabine 1 tab PO DAILY 90 days #90 tabs 07/17/24 200 mg-tenofovir alafenam 25 mg tablet (Biktarvy) levothyroxine 100 mcg tablet 100 mcg PO .COMPLEX #12 tabs 10/17/24 (Synthroid) levothyroxine 88 mcg tablet 88 mcg PO .COMPLEX #90 tabs 10/17/24 (Synthroid) aspirin 81 mg tablet,delayed 81 mg PO DAILY 90 days #90 tabs 11/12/24 release (Adult Aspirin Regimen) atorvastatin 80 mg tablet 80 mg PO DAILY #90 tabs 11/26/24 ezetimibe 10 mg tablet 10 mg PO DAILY #90 tabs 11/26/24 Allergies Allergy/AdvReac Type Severity Reaction Status Date / Time amlodipine (AMLODIPINE) Allergy Unknown RASH Verified 11/26/24 16:12 cephalexin (From KEFLEX) Allergy Unknown RASH Verified 11/26/24 16:12 levofloxacin (From LEVAQUIN) Allergy Unknown RASH Verified 11/26/24 16:12 [facility] Past Medical History Medical History (Updated 11/27/24 @ 00:01 by Amparo Crawford) CKD (chronic kidney disease) stage 3, GFR 30-59 ml/min 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 Anxiety Morbid obesity Other and unspecified hyperlipidemia Essential hypertension Atherosclerotic cardiovascular disease Pituitary microadenoma Vitamin D deficiency Graves disease Post-surgical hypothyroidism Osteoarthritis GERD (gastroesophageal reflux disease) Leukopenia Cervical radiculitis Lumbar radiculopathy Pernicious anemia Obstructive sleep apnea Raynaud's phenomenon Pituitary microadenoma 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 Mother Stroke Sister Diabetes mellitus Maternal Grandmother Unknown family medical history Brother Cancer Sister No problems noted. Brother No problems noted. Daughter Healthy female Social History Social History Housing: Apartment Are you a primary md do resident urgent care to a significant other at home: No Do you presently have visiting nurse or other home services: No Alcohol intake: current Alcohol intake frequency: holidays/special occasions only Patient Tobacco Use Status: Never used Tobacco Smoked in Last 30 Days: No e-Cigarette/Vaping Use: Never Used Second Hand Smoke Exposure: No Advance Directives: No Advance Directives Information Provided: No Do you have a plan to hurt others: No Plan service: No Current occupational status: disabled Cognitive needs: No Hearing needs: No Vision needs: Yes Physical Exam ED Exam Exam: GENERAL: Well appearing. No apparent distress. Alert. HEAD/NECK: Normal to inspection. Neck supple. No cervical lymphadenopathy. EYES: Normal to inspection. Sclera non-icteric. ENMT: External nose normal. RESPIRATORY: Respiratory effort normal. Lungs clear to auscultation bilaterally. CARDIOVASCULAR: Regular rate. Normal rhythm. No murmur. No rubs. GI: Soft, non-tender, non-distended. No rebound or guarding. No masses palpable. No hepatosplenomegaly. SKIN: No jaundice. NEUROLOGICAL: Alert. PSYCHIATRIC: Alert. Appearance appropriate for situation. Attitude cooperative. OTHER: Comprehensive Neuro exam: Face symmetric, tongue midline, strong symmetric eye closure, pupils symmetric and reactive to light, intact sensation to the face throughout, intact strong face deviation and shoulder shrug. Sensation intact to light touch throughout 5 out of 5 strength in bilateral upper extremities, 5 and 5 strength in lower extremities steady gait no ataxia Vital Signs: Vital Signs - 24 hr 11/26/24 16:10 11/26/24 19:36 11/26/24 19:58 Temperature 98.7 F 97.9 F 97.9 F Pulse Rate 54 51 51 Respiratory Rate 20 16 16 Blood Pressure 150/77 H 175/87 H 175/87 H Pulse Oximetry 99 96 96 Oxygen Delivery Method Room Air Room Air Room Air BMI result Body Mass Index 44.6 Medical Decision Making Medical Decision Making MDM Narrative: Medical Decision Makin-year-old female presents with vague symptomatology mostly ?I feel off ?and also slightly unsteady she was at walk-in clinic and they sent her here for evaluation. She has mild headache she reports very minimal headache around the left upper orbit.Exam including neuro and CV reassuring. Well controlled HIV/nondetectable makes opportunistic infxn unlikely. Labs reassuring. Reassured pt here. PCP f/u Preliminary Favored Differential Diagnosis: Hypertensive urgency, viral syndrome, dehydration, UTI among additional considered etiologies Testing Interpreted Independently: ECG sinus rhythm rate 55 QTC 441 no ischemic changes. Radiology or Lab testing Results Reviewed: Not Applicable Consults: Not Applicable Independent Historians/External Chart Reviews: Not Applicable Social Determinants of Health Impacting MDM/Planning: Not Applicable Lab Data 11/26/24 17:02 11/26/24 17:02 Labs: Lab Results 11/26/24 11/26/24 Range/Units 17:02 18:09 WBC 4.0 L (4.8-10.8) X10*3/uL RBC 4.80 (4.20-5.50) X10*6/uL Hgb 13.1 (12.0-16.0) g/dl Hct 40.4 (37.0-47.0) % MCV 84.2 (80.0-98.0) fL MCH 27.3 (27.0-33.0) pg MCHC 32.4 (31.0-35.0) g/dl RDW 15.0 (11.0-16.0) % Plt Count 207 (160-400) X10*3/uL MPV 10.5 (9.4-12.3) fL Immature Gran % (Auto) 0.5 H (0.0-0.4) % Neut % (Auto) 45.2 (45-73) % Lymph % (Auto) 46.2 H (20-40) % [place] % (Auto) 6.8 (2-11) % Eos % (Auto) 0.8 (0-4) % Baso % (Auto) 0.5 (0-2) % Lymph # (Auto) 1.8 (1.2-4.9) X10*3/uL [place] # (Auto) 0.3 (0.1-1.2) X10*3/uL Eos # (Auto) 0.0 (0.0-0.4) X10*3/uL Baso # (Auto) 0.0 (0.0-0.2) X10*3/uL Abs Immat Gran (auto) 0.02 (0.00-0.03) X10*3/uL Absolute Neuts (auto) 1.8 L (2.0-8.3) x10*3/uL Absolute Nucleated RBC 0.000 (0.0-0.012) X10*3/uL Nucleated RBC % (auto) 0.0 (0.0-0.2) /100WBC Sodium 144 (135-145) mmol/L Potassium 3.6 (3.3-5.1) mmol/L Chloride 109 H (96-108) mmol/L Carbon Dioxide 27 (22-29) mmol/L Anion Gap 12 (12-20) BUN 15 (9-16) mg/dL Creatinine 1.08 (0.5-1.4) mg/dL Estim Creat Clear Calc 63.3 Estimated GFR 52 Random Glucose 86 (60-115) mg/dL Calcium 8.8 (8.4-10.2) mg/dL Total Bilirubin 0.5 (0.0-1.0) mg/dL AST 21 (5-31) U/L ALT 16 (0-31) U/L Alkaline Phosphatase 128 H (39-117) U/L Total Protein 7.3 (6.5-8.0) g/dL Albumin 4.1 (3.5-5.0) g/dL TSH 3.30 (0.32-4.0) uIU/mL Urine Color Yellow Urine Appearance Clear Urine pH 6.0 (5.0-9.0) Ur Specific [place] 1.010 (1.005-1.025) Urine Protein Negative (Neg-Trace) mg/dL Urine Glucose (UA) Negative (Negative) mg/dL Urine Ketones Negative (Negative) mg/dL Urine Blood Small (1+) H (Negative) Urine Nitrite Negative (Negative) Ur Leukocyte Esterase Negative (Negative) Urine RBC 0-2 (0-2) /HPF Urine WBC 0-5 (0-5) /HPF Ur Squamous Epith Cells 0-2 (0-2) /HPF Urine Bacteria None Seen (None Seen) Hyaline Casts 0-2 (0-2) /LPF Discharge Plan Discharge Clinical Impression: Malaise Patient Disposition: Home, Self-Care Instructions: Fatigue (ED) Additional Instructions: DISCHARGE DIAGNOSES: Generalized weakness and malaise unclear cause HISTORY OF PRESENTATION: ?Subjectively feeling off balance with mild headache and not feeling well EMERGENCY DEPARTMENT COURSE,TESTS, TREATMENTS: While in the ED today you had basic lab work including blood chemistries urinalysis blood counts your blood pressure was mildly elevated not requiring emergent treatment. You had a reassuring examination and you had steady gait DISCHARGE MEDICATIONS: ?[We have made no changes to your regular medication regimen] FOLLOW-UP: ?Call your primary or general physician soon as possible to discuss your symptoms, your ED visit and to discuss follow up plans Call your primary doctor to follow up INSTRUCTIONS ?& RETURN PRECAUTIONS: If any symptoms change first call your primary physician, if it is after-hours your primary doctors office should have a provider underwriting operations manager you can speak with. If the symptoms are severe or very concerning to you then call 911 or return to the ED. Allan Clayton MD Emergency Physician [facility] Prescriptions: No Action Praluent Pen 75 mg/mL pen injector 75 mg subcut Q2W 90 Days Qty: 7 3RF metoprolol succinate 100 mg tablet extended release 24 hr 100 mg PO BID Qty: 180 1RF nifedipine 30 mg tablet extended release 30 mg PO DAILY Qty: 90 1RF albuterol sulfate [Ventolin HFA] 90 mcg/actuation HFA aerosol inhaler 1 inh inhalation QID PRN (Reason: shortness of breath or wheezing) Qty: 8.5 1RF levothyroxine [Synthroid] 100 mcg tablet 100 mcg PO .COMPLEX Qty: 12 1RF Rx Instructions: 100 mcg orally 100 mcg orally once a week; take 88mcg all other days of the week; levothyroxine [Synthroid] 88 mcg tablet 88 mcg PO .COMPLEX Qty: 90 1RF Rx Instructions: 88 mcg orally 100 mcg orally once a week; take 88mcg all other days of the week; aspirin [Adult Aspirin Regimen] 81 mg tablet,delayed release (DR/EC) 81 mg PO DAILY 90 Days Qty: 90 3RF atorvastatin 80 mg tablet 80 mg PO DAILY Qty: 90 3RF ezetimibe 10 mg tablet 10 mg PO DAILY Qty: 90 3RF acetaminophen [Tylenol Extra Strength] 500 mg tablet 1,000 mg PO Q6H PRN (Reason: fever or pain) Qty: 20 0RF lorazepam 1 mg tablet 1 mg PO BEDTIME PRN (Reason: Anxiety) Biktarvy 50-200-25 mg tablet 1 tab PO DAILY 90 Days Qty: 90 1RF Interventions: ED Discharge Assessment Last Done: 11/26/24 19:58 Discharge Date/Time: 11/26/24 19:58 Print Language: Lao
[2024-11-26 17:05] LABS: MANUAL DIFF FLAG NO
[2024-11-26 17:20] LABS: Alanine Aminotransferase 16 U/L (0-31); Albumin Level 4.1 g/dL (3.5-5.0); Alkaline Phosphatase 128 U/L (39-117); Anion Gap 12 (12-20); Aspartate Amino Transferase 21 U/L (5-31); Blood Urea Nitrogen 15 mg/dL (9-16); Calcium 8.8 mg/dL (8.4-10.2); Carbon Dioxide 27 mmol/L (22-29); Chloride 109 mmol/L (96-108); Creatinine Clr Calc Pharmacy 63.3; Estimated Glomerular Filt Rate 52; Potassium 3.6 mmol/L (3.3-5.1); Sodium 144 mmol/L (135-145); Total Protein 7.3 g/dL (6.5-8.0)
[2024-11-26 17:42] LABS: Hematocrit 40.4 % (37.0-47.0); Hemoglobin 13.1 g/dl (12.0-16.0); Imm Gran Abs Auto 0.02 X10*3/uL (0.00-0.03); Imm Gran Pct Auto 0.5 % (0.0-0.4); Lymphocytes Absolute Auto 1.8 X10*3/uL (1.2-4.9); Mean Corpuscular HGB Conc 32.4 g/dl (31.0-35.0); Mean Corpuscular Hemoglobin 27.3 pg (27.0-33.0); Mean Corpuscular Volume 84.2 fL (80.0-98.0); NRBC Abs Auto 0.000 X10*3/uL (0.0-0.012); NRBC Pct Auto 0.0 /100WBC (0.0-0.2); Platelet Count 207 X10*3/uL (160-400); Red Blood Count 4.80 X10*6/uL (4.20-5.50); White Blood Count 4.0 X10*3/uL (4.8-10.8)
[2024-11-26 18:17] LABS: Appearance Urine Clear; Glucose Urine UA Negative (Negative); PH 6.0 (5.0-9.0); Specific Gravity - Urine 1.010 (1.005-1.025); UMIC TRIGGER UACC YES
[2024-11-26 19:36] VITALS: BP 175/87; PULSE 51; RESP 16; TEMP 36.6; O2SAT 96
[2024-11-26 19:58] VITALS: BP 175/87; PULSE 51; RESP 16; TEMP 36.6; O2SAT 96
== END 2024-11-26 19:58 | disposition home or self-care (01) ==
PROVIDERS: Physician Assistant Medical; Emergency Provider Emergency Medicine; PCP Nurse Practitioner Family
DX: R51.9 Headache, unspecified (principal); R53.81 Other malaise; R53.1 Weakness; B20 Human immunodeficiency virus [HIV] disease; I12.9 Hypertensive chronic kidney disease with stage 1 through stage 4 chronic kidney disease, or unspecified chronic kidney disease; N18.30 Chronic kidney disease, stage 3 unspecified; E78.5 Hyperlipidemia, unspecified; E05.00 Thyrotoxicosis with diffuse goiter without thyrotoxic crisis or storm; E66.01 Morbid (severe) obesity due to excess calories; Z68.41 Body mass index [BMI] 40.0-44.9, adult; Z79.899 Other long term (current) drug therapy
CPT/HCPCS: 36415; 80053; 81001; 84443; 85025; 93005; 99283; 99284

== ENCOUNTER → 2024-11-26 16:16 | Outpatient (BNV) | payer OTHER, SELFPAY | PROVIDERS: Emergency Provider Emergency Medicine; PCP Nurse Practitioner Family; Visit Provider Internal Medicine Cardiovascular Disease | DX: R00.1 Bradycardia, unspecified (principal) | CPT/HCPCS: 93010 ==

== ENCOUNTER 2024-12-20 13:22 | Outpatient (AMB) | payer OTHER, SELFPAY ==
[2024-12-20 13:26] VITALS: BP 144/98; PULSE 77; TEMP 36.9; O2SAT 96; BMI 43.8
--- NOTE | 2024-12-20 13:26 | MHC.OFFWIV ---
Intake Vital Signs 12/20/24 13:26 Height 5 ft 1 in Weight 232 lb BMI 43.8 BP 144/98 H Blood Pressure Location Lt brachial Position Sitting Pulse 77 Pulse Source Pulse Oximeter Temp 98.5 F Temp Source Oral Pulse Oximetry (%) 96 Oxygen Delivery Method Room Air Intake Visit Reasons: EP-rt shoulder pain Intake Note: pt presents right shoulder pain x2 days- denies injury Patient Tobacco Use Status: Never used Tobacco Allergies amlodipine (AMLODIPINE) Allergy (Unknown, Verified 12/20/24 13:27) RASH cephalexin (From KEFLEX) Allergy (Unknown, Verified 12/20/24 13:27) RASH levofloxacin (From LEVAQUIN) Allergy (Unknown, Verified 12/20/24 13:27) RASH Do you need a note to return to daycare/school/sports/work: No HPI HPI Comments History of Present Illness Details History - The patient is a 59-year-old female presenting with right shoulder pain. - The shoulder pain started three days ago, causing significant discomfort and sleep disturbance. - The pain is located in the right shoulder and neck, with a tight sensation. - No recent injuries or unusual activities were reported. - The patient has a history of arthritis. - Tylenol provided minimal relief. - Menopausal symptoms, including hot flashes, are present Physical Exam General: Cooperative, healthy appearing, comfortable, no acute distress and well developed Orientation: Patient oriented x3 Limitations: Limited movement in the shoulder Head: Normal to inspection Ears: Hearing grossly normal bilaterally Nose: Normal External nose present Face and sinus: Normal facial exam Mouth: normal, moist oral mucosa Eyes: Appearance normal, both eyes and all related structures Neck: Normal visual inspection, pain on one side of the neck, full ROM Respiratory: Normal respiratory effort and able to speak in complete sentences. Skin: no rashes or lesions noted Neuro: Patient oriented x3, tingling and numbness in fingers Extremities: unable to to lift off test, otherwise full ROM with pain, negative empty can, TTP right trapezius, moving other extremities normally Back/spine: no TTP cervical, thoracic or lumbar spine, full ROM back, no ttp paraspinous muscles of back [facility] Medical History (Updated 12/20/24 @ 13:37 by Leigha Croft PA-C) CKD (chronic kidney disease) stage 3, GFR 30-59 ml/min 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 Anxiety Morbid obesity Other and unspecified hyperlipidemia Essential hypertension Atherosclerotic cardiovascular disease Pituitary microadenoma Vitamin D deficiency Graves disease Post-surgical hypothyroidism Osteoarthritis GERD (gastroesophageal reflux disease) Leukopenia Cervical radiculitis Lumbar radiculopathy Pernicious anemia Obstructive sleep apnea Raynaud's phenomenon Pituitary microadenoma 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 Mother Stroke Sister Diabetes mellitus Maternal Grandmother Unknown family medical history Brother Cancer Sister No problems noted. Brother No problems noted. Daughter Healthy female Social History Housing: Apartment Are you a primary patient care associate to a significant other at home: No Do you presently have visiting nurse or other home services: No Alcohol intake: current Alcohol intake frequency: holidays/special occasions only Patient Tobacco Use Status: Never used Tobacco e-Cigarette/Vaping Use: Never Used Second Hand Smoke Exposure: No service: No Current occupational status: disabled Cognitive needs: No Hearing needs: No Vision needs: Yes Female Reproductive History Menstrual Age of Menarche: 13 Review of Systems Const All systems reviewed & are unremarkable except as noted in HPI and below Physical Exam Vital Signs: Last Vital Signs Temp 98.5 F 12/20/24 13:26 Pulse 77 12/20/24 13:26 BP 144/98 H 12/20/24 13:26 Pulse Ox 96 12/20/24 13:26 Oxygen Delivery Method Room Air 12/20/24 13:26 BMI result Body Mass Index 43.8 Assessment & Plan Assessment & Plan (1) Right shoulder pain: Code(s): M25.511 - Pain in right shoulder Qualifiers: Chronicity: acute Qualified Code(s): M25.511 - Pain in right shoulder Plan: Plan Patient was informed and verbally consented to the use of an ambient scribe for clinic note documentation during this visit Shoulder Pain - A shoulder x-ray is planned to evaluate for structural issues. - Arthritis, vs possible frozen shoulder due to menopause; further assessment after x-ray results. - Sent Diclofenac and cyclobenzaprine, advised no alcohol or driving with muscle relaxer. No other NSAIDS with Diclofenac, rest it and ice it. No sling provided. XR/XR shoulder RT min 2V IMPRESSION: Osteoarthritis/osteoarthrosis, right acromioclavicular joint and greater tuberosity right humerus. Orders: Orders XR shoulder RT min 2V Today M25.511 - Pain in right shoulder Medications: New cyclobenzaprine 5 mg PO Q8H PRN 20 tabs 0RF Muscle Spasm diclofenac sodium 50 mg PO Q12H PRN 20 tabs 0RF pain Coding Level of Care Code Est Pt Level 4 (39227) Diagnoses Acute pain of right shoulder M25.511 Chronicity: acute
--- OUTSIDE RECORDS SUMMARY | 2024-12-20 13:30 | XMS_ITS | Continuity of Care Document ---
Author Name instED, Medical Address [address] [place] [address] Organization Unknown Address [address] [place] [address] Medications No known medications Problems No known problems
--- OUTSIDE RECORDS SUMMARY | 2024-12-20 13:30 | XMS_ITS | Encounter Summary ---
Author Organization [facility] Address [address] [place] [address] Encounters * CPT with Medical [facility] at [place] on 2024-12-19 { reasonForRequest : Patient has Right shoulder pain, out of nowhere for a day. , patientReports : , denies :[ Worst Headache of life ,"New onset of vision loss , Sudden onset -unilateral weakness/gait disturbance ,"Fall with head strike and altered LOC , New onset of Slurred speech or difficulty finding words , Sudden Mental status changes , Head pain with fever chills and neck pain , Seizure activity , Head pain not relieved by medication greater than 8 hours , Head pain greater than 8 hours -unrelated to falls or injury , Head pain with nausea vomiting , Dizziness with positional change , Sensitive to light ], chiefComplaints : Extremity Pain, Urinary Symptoms , pmh : Hyp ertension, HIV/AIDS, Hyperlipidemia , allergies : Cephalexin, Levofloxacin, Amlo dipine , otherAllergies :null, painAssessment : , visitOutc ome : , additionalComments : 59 y.o female complains of Extremity Pain\nPatient making referral\nsymptoms started 2 days ago \nlow back pain a day ago but has gone awaythinks it may have been kidney stones has hx of them\nright shoulder blade pain 09/24 not radiating \ncomplains of a headache on the right side in occipital area \ndenies any lightheadedness or dizziness\npatient states she feels warm but hasn't taken her temperature\ndenies any shortness of breath but says when she sneezes she has chest tightness. \nShe has been Tylenol and pain cream with littleto no relief. \ndenies any unusual exercise or repetitive movement in the last few days. \nrequesting insted visit. \nKidney issues with stones and hematuria and takes a low dose aspirin daily. \n\n\n\nI provided information on the mobile health provider response time and advised the patient and/orcaregiver to monitor reported signs and symptoms. I discussed the warning signs of when to seek emergency care. } SC12 dispatched to the address listed above for the report of a female green party with shoulder pain. Arrival on scene, patient was found opening front door for [facility] ambulating without assistance to a seated position in kitchen. Patient seated in kitchen, alert and oriented x4, patent airway, breathing non labored speaking in complete sentences, skin WPD in no obvious distress. +/= Chest rise. -SOB, -CP, -NVD, -Trauma, -Fever. GCS 15. Patient reports over the past 2 days, she has been experiencing right shoulder pain that progressively began to radiate down right arm with intermittent tingling in fingers of right hand, patient reports pain upon any movement or rotation of right shoulder. Patient r ight arm, CMS intact. Patient denies any trauma, former surgeries or injuries of right shoulder, denies fever/chills, denies history of blood clots, denies blood thinners. Patient denies any chest pain, shortness of breath, or nausea/vomiting/diarrhea. Patient also reports history of kidney stones and believes that she passed a kidney stone 2 days ago which pain subsided since, patient denies anycurrent urinary symptoms. Patient reports that she has only been taking Tylenol for pain managementwith minor relief, patient denies any allergies to NSAID. Patient vital signs obtained as noted. [facility] consulted, advised that patient should follow up with PCP for evaluation and imaging to obtain a diagnosis. In addition, patient advised she can Ibuprofen as well for pain management. Red flags discussed with patient, advised to call 911 if her condition worsens. SC12 Clear. IV_(FLUIDS_AND/OR_MEDICATION), MEDICATION_IM, ORAL_MEDICATION, EKG, POC_BLOODWORK, GLUCOSE, WOUND_CARE, ORTHOSTATIC_VITAL_SIGNS [facility]24[facility]19
--- OUTSIDE RECORDS SUMMARY | 2024-12-20 13:30 | XMS_ITS | Encounter Summary ---
Author Organization [facility] Address [address] [place] [address] Phone Care Team Providers Care Guard Immigration Name Role Phone Kenroy Freeman NP Primary Care Provider [phone] Encounter Details Date Type Department Care Team (Late st Contact Info) Description 03/01/2021 Documentation Only [facility] [address] [place] [phone] Falguni Whitney PA Social History Tobacco Use [...] Visit [facility] [address] [place] [phone] Reginaldo Eagle MD [address] [place] [address] [place] [phone] documented as of this encounter Visit Diagnoses Not on filedocumented in this encounter Care Teams Guard Immigration Relationship Specialty Start Date End Date Kenroy Freeman NP [address] [place] [address] PCP - General Nurse Practitioner 11/15/19 documented as of this encounter
--- OUTSIDE RECORDS SUMMARY | 2024-12-20 13:30 | XMS_ITS | Encounter Summary ---
Author Organization [facility] Address [address] [place] [address] Phone Care Team Providers Care Inside Sales Professional Name Role Phone Kenroy Freeman NIRALI Primary Care Provider [phone] Encounter Details Date Type Department Care Team (Late st Contact Info) Description 05/13/2021 Documentation Only [facility] [address] [place] [address] Jose Martin Mccall MD [address] [place] [address] Social History Tobacco Use Types [...] [facility] [address] [place] [address] Reginaldo Eagle MD [address] [place] [address] documented as of this encounter Visit Diagnoses Not on filedocumented in this encounter Care Teams Inside Sales Professional Relationship Specialty Start Date End Date Kenroy Freeman NP [facility] [place] [address] PCP - General Nurse Practitioner 11/15/19 documented as of this encounter
--- OUTSIDE RECORDS SUMMARY | 2024-12-20 13:30 | XMS_ITS | Clinical Summary ---
Author Organization [facility] Address [address] [place] [address] Care Team Providers Care Renewable Energy Consultant Name Role Phone Unavailable Primary Care Provider [...] 11/12/2015 Zoster Vaccines (1 of 2) 11/12/2015 Depression Screening 04/17/2024 COVID-19 Vaccine (1 - 2023-2 5 season) 2024 Influenza Vaccine (#1) 2024 RSV Immunization Adult [...]
--- OUTSIDE RECORDS SUMMARY | 2024-12-20 13:30 | XMS_ITS | Encounter Summary ---
Author Organization [facility] Address [address] [place] [address] Phone Care Team Providers Care Core Manager Name Role Phone Kenroy Freeman NIRALI Primary Care Provider [phone] Encounter Details Date Type Department Care Team (Late st Contact Info) Description 08/18/2021 Documentation Only [facility] [address] [place] [address] Jose Martin Mccall MD [address] [place] [address] Social History Tobacco Use Types [...] Visit [facility] [address] [place] [address] Reginaldo Eagle MD [address] [place] [address] documented as of this encounter Visit Diagnoses Not on filedocumented in this encounter Care Teams Core Manager Relationship Specialty Start Date End Date Kenroy Freeman NP [facility] [place] [address] PCP - General Nurse Practitioner 11/15/19 documented as of this encounter
--- OUTSIDE RECORDS SUMMARY | 2024-12-20 13:30 | XMS_ITS | Patient Health Record ---
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) Active confirmed Problem Pronation deformity of right foot (M21.6X1) Active confirmed Plan Of Treatment No Information Insurance Providers Payer Name Payer Address Payer Phone Subscriber Number Group Number Insured Name Patient Relationship to Insured Coverage Start Date Coverage End Date [facility] [employer] Claims [address] [place] [phone] [id number] Miriam Chacon Self - patient is the insured Medical (General) History Medical History History ICD Code Anxiety Depression High blood pressure raynauds disease Sciatica thyroid HIV Surgical History Surgery Date(Month/Year) tubes in ears tubal ligation 2000 shoulder surgery
--- OUTSIDE RECORDS SUMMARY | 2024-12-20 13:30 | XMS_ITS | Encounter Summary ---
Author Organization [facility] Address [address] [place] [address] Phone Care Team Providers Care Associate Principal Name Role Phone Kenroy Freeman NIRALI Primary Care Provider [phone] Encounter Details Date Type Department Care Team (Late st Contact Info) Description 08/18/2021 Documentation Only [facility] [address] [place] [address] Jose Martin Mccall MD [address] [place] [address] Social History Tobacco Use [...] [facility] [address] [place] [address] Reginaldo Eagle MD [address] [place] [address] documented as of this encounter Visit Diagnoses Not on filedocumented in this encounter Care Teams Associate Principal Relationship Specialty Start Date End Date Kenroy Freeman [place] [address] PCP - General Nurse Practitioner 11/15/19 documented as of this encounter
--- OUTSIDE RECORDS SUMMARY | 2024-12-20 13:31 | XMS_ITS | Clinical Summary ---
Author Organization [facility] Address [address] [address] Phone Care Team Providers Care Merchant Mariner Name Role Phone Reyes Beach MD Primary Care Provider [phone] Allergies Active Allergy Reactions Criticality Noted Date [...] HEPATITIS C SCREENING 11/12/1983 HIV ONE-TIME SCREENING (18-65 YEARS) 11/12/1983 PAP SMEAR 1986 MAMMOGRAM 2005 COLOGUARD 2010 COLONOSCOPY 2010 COLORECTAL CANCER SCREENING 2010 FIT TEST 2010 FOBT 2010 SIGMOIDOSCOPY 2010 VIRTUAL COLONOSCOPY 2010 ZOSTER VACCINES (1 of 2) 11/12/2015 PNEUMOCOCCAL VACCINES (50+ years) (2 of 2 - PCV) 03/10/2016 03/10/2015 DEPRESSION SCREENING 09/25/2019 09/24/2018 INFLUENZA VACCINE (#1) 2024 9, 01/15/2018, 12/26/2016, Additional history exists COVID-19 VACCINE ( - season) 2024 08/31/2020, 08/10/2020 Adult Td,Tdap Booster 09/28/2027 09/27/2017 SMOKING STATUS SCREENING (Once After 26 Yrs) Completed 08/03/2021 HEPATITIS A [...] topic Medical Devices Not on file Insurance [facility] ONE CARE MEDICARE REPLACEMENT [place] [id number] MEDICARE REPLACEMENT MEDICARE REPLACEMENT MEDICARE REPLACEMENT MEDICARE REPLACEMENT MEDICARE REPLACEMENT MEDICARE REPLACEMENT [place] [address] ONE CARE MEDICARE REPLACEMENT [facility] CARE MEDICARE REPLACEMENT Care Teams Merchant Mariner Relationship Specialty Start Date End Date Reyes Beach MD PCP - General Internal Medicine 08/22/18 Additional Source Comments The information contained in this document represents components of the legal health record. It is not the complete legal health record.[facility]
--- OUTSIDE RECORDS SUMMARY | 2024-12-20 13:31 | XMS_ITS | Encounter Summary ---
Author Organization [facility] Address [address] [place] [address] Phone Care Team Providers Care Travel Rn Or Name Role Phone Kenroy Freeman NIRALI Primary Care Provider [phone] Encounter Details Date Type Department Care Team (Late st Contact Info) Description 08/18/2022 Documentation Only [facility] [address] [place] [address] [place], [place] [address] [place] [address] Social History Tobacco Use Types [...] Visit [facility] [address] [place] [address] Reginaldo Eagle MD [address] [place] [address] documented as of this encounter Visit Diagnoses Not on filedocumented in this encounter Care Teams Travel Rn Or Relationship Specialty Start Date End Date Kenroy Freeman NP [facility] [place] [address] PCP - General Nurse Practitioner 11/15/19 documented as of this encounter
--- OUTSIDE RECORDS SUMMARY | 2024-12-20 13:31 | XMS_ITS | Encounter Summary ---
Author Organization [facility] Address [address] [facility] [address] [place] [address] Phone Care Team Providers Care Small Package And Bundle Sorter Clerk Name Role Phone Reyes Beach MD Primary Care Provider [phone] Reason for Referral * MRI/CAT Scan - Closed Specialty Diagnoses / Procedures Referred By Katelynn feldman Referred To Contact Procedures CT Cardiac Outside (No Interpretation) Regino Bang MD Phone: tel: fax: mailto:[email or web address] Referral ID Status Reason Start Date Expiration Date Visits Re quested Visits Authorized [id number] Closed 09/11/2018 09/11/2019 1 1 Encounter Details Date Type Department Care Team (Late st Contact Info) Description 09/11/2018 Transcribe Orders [facility] [address] [place] [address] [place] [address] [place] [id number] [email or web address] Social History Tobacco Use Types Packs/Day Years Used Date Smoking Tobacco: Never Assessed Comments Unknown Sex and Gender Information Value Date Recorded Sex Assigned at Not on file Legal Sex Female 9:40 PM EDT Gender Identity Not on file Sexual Orientation Not on file documented as of this encounter Plan of Treatment Not on file documented as of this encounter Results * CT Cardiac Outside (No Interpretation) (09/11/2018 10:01 AM EDT) Narrative JULITA - 09/11/2018 10:01 AM EDT This study is for PACS storage only and not for interpretation. us Regino Bang MD IMG OUTSIDE IMAGING W /OUT INTERPRETATION Final Result [email or web address] documented in this encounter Visit Diagnoses Not on filedocumented in this encounter Care Teams Small Package And Bundle Sorter Clerk Relationship Specialty Start Date End Date Reyes Beach MD [email or web address] PCP - General Internal Medicine 08/22/18 documented as of this encounter Additional Source Comments The information contained in this document represents components of the legal health record. It is not the complete legal health record.[facility]
--- OUTSIDE RECORDS SUMMARY | 2024-12-20 13:31 | XMS_ITS | Encounter Summary ---
Author Organization [facility] Address [address] [place] [address] Phone Care Team Providers Care Binding Cementer French Cord Name Role Phone Kenroy Freeman NIRALI Primary Care Provider [phone] Encounter Details Date Type Department Care Team (Late st Contact Info) Description 09/19/2022 Documentation Only [facility] [address] [place] [address] Tonya Wilson PA [address] [place] [address] Social History Tobacco Use Types [...] [facility] [address] [place] [address] Reginaldo Eagle MD [address] [place] [address] documented as of this encounter Visit Diagnoses Not on filedocumented in this encounter Care Teams Binding Cementer French Cord Relationship Specialty Start Date End Date Kenroy Freeman NP [facility] [place] [address] PCP - General Nurse Practitioner 11/15/19 documented as of this encounter
--- OUTSIDE RECORDS SUMMARY | 2024-12-20 13:31 | XMS_ITS | Clinical Summary ---
Author Organization [facility], Address [address] [place] [address] [place] [address] Phone Care Team Providers Care Site Director Name Role Phone Kenroy Freeman NP Primary Care Provider [phone] Allergies Active Allergy Reactions Criticality Noted Date [...] Encounters Date Type Department Care Team Description 10/02/2024 10:10 AM EDT Office Visit [facility] [place], [address] [place] [address] Reginaldo Eagle MD Stage 3a chronic kidney disease (HCC) (Primary Dx) 10/02/2024 Orders Only [facility] [address] [place] [address] Kati Casas [place] Stage 3a chronic kidney disease (HCC) (Primary Dx); Essential hypertension; Hematuria, not otherwise specified from Last 3 Months Immunizations Immunization Administration Dates Next Due H1N1 Inj 02/25/2016 Influenza, MDCK, Quadrivalent, with preservative 01/31/2018 Family History Medical History Relation Comments Heart disease Father ID Stroke Father Hypertension Mother Cancer Sibling 1 [...] Visit [facility] [place], [address] [place] [address] Reginaldo Eagle MD [address] [address] Health Maintenance Due Date Last Done Comments Breast Cancer Screening 1965 Hepatitis B Vaccine (1 of 3 - 19+ 3-dose series) 11/11 Colorectal Cancer Screening: Annual FOBT 2014 Colorectal Cancer Screening: Colonoscopy 2014 Colorectal Cancer Screening: Sigmoidoscopy 2014 Pneumococcal Vaccine: 50+ Years (2 of 2 - PCV) 016 03/10/2015 Influenza Vaccine (#1) 2024 01/31/2018 Pneumococcal Vaccine: Peds ( 0 to 5 Years) and At-Risk Patients (6 to 49 Years) Discontinued 03/10/2015 Insurance [facility] Dual SNP ([id number]) [place] [id number] [place] [address] [phone] [place] [phone] Care Teams Site Director Relationship Specialty Start Date End Date Kenroy Freeman NP [facility] [place], [place] [id number] PCP - General Nurse Practitioner 11/15/19
--- OUTSIDE RECORDS SUMMARY | 2024-12-20 13:31 | XMS_ITS | Encounter Summary ---
Author Organization [facility] Address [address] [place] [address] Phone Care Team Providers Care Streetcar Conductor Name Role Phone Kenroy Freeman NIRALI Primary Care Provider [phone] Encounter Details Date Type Department Care Team (Late st Contact Info) Description 06/02/2023 Documentation Only [facility] [address] [place] [address] Reanna Goyal [address] [place] [address] Social History Tobacco Use Types [...] Transplant [facility] [address] [place] [address] Reginaldo Eagle MD [address] [facility] [address] [address] documented as of this encounter Visit Diagnoses Not on filedocumented in this encounter Care Teams Streetcar Conductor Relationship Specialty Start Date End Date Kenroy Freeman NP [facility] [place] [address] PCP - General Nurse Practitioner 11/15/19 documented as of this encounter
--- OUTSIDE RECORDS SUMMARY | 2024-12-20 13:31 | XMS_ITS | Encounter Summary ---
Author Organization [facility] Address [address] [place] [address] Phone Care Team Providers Care Knocker Off Name Role Phone Kenroy Freeman NIRALI Primary Care Provider [phone] Encounter Details Date Type Department Care Team (Late st Contact Info) Description 10/13/2021 Documentation Only [facility] [address] [place] [address] Jose Martin Mccall MD [address] [place] [address] Social History Tobacco Use Types [...] Services [facility] [address] [place] [address] Reginaldo Eagle MD [address] [place] [address] documented as of this encounter Visit Diagnoses Not on filedocumented in this encounter Care Teams Knocker Off Relationship Specialty Start Date End Date Kenroy Freeman NP [facility] [place] [address] PCP - General Nurse Practitioner 11/15/19 documented as of this encounter
--- OUTSIDE RECORDS SUMMARY | 2024-12-20 13:31 | XMS_ITS | Encounter Summary ---
Author Organization [facility] Address [address] [facility] [address] [place] [address] Phone Care Team Providers Care Console Manager Name Role Phone Reyes Beach MD Primary Care Provider [phone] Encounter Details Date Type Department Care Team (Late st Contact Info) Description 04/20/2021 Procedure Pass [facility], [place] [address] [place] [address] Social History Tobacco Use Types Packs/Day Years Used Date Smoking Tobacco: Never Smokeless Tobacco: Never Comments No Sex and Gender Information Value Date Recorded Sex Assigned at Not on file Legal Sex Female 9:40 PM EDT Gender Identity Not on file Sexual Orientation Not on file documented as of this encounter Plan of Treatment Not on file documented as of this encounter Visit Diagnoses Not on filedocumented in this encounter Additional Health Concerns Assessment Noted Time PHQ-2 Depression Total Score: 2 09/25/19 19 3:45 PM EDT documented as of this encounter Care Teams Console Manager Relationship Specialty Start Date End Date Reyes Beach MD PCP - General Internal Medicine 08/22/18 documented as of this encounter Additional Source Comments The information contained in this document represents components of the legal health record. It is not the complete legal health record.[facility]
--- OUTSIDE RECORDS SUMMARY | 2024-12-20 13:31 | XMS_ITS | Encounter Summary ---
Author Organization [facility] Address [address] [place] [address] Phone Care Team Providers Care Batch Dumper Name Role Phone Kenroy Freeman NIRALI Primary Care Provider [phone] Encounter Details Date Type Department Care Team (Late st Contact Info) Description 09/27/2021 Documentation Only [facility] [address] [place] [address] Jose Martin Mccall MD [address] [place] [address] Social History Tobacco Use Types [...] Visit [facility] [address] [place] [address] Reginaldo Eagle MD [address] [place] [address] documented as of this encounter Visit Diagnoses Not on filedocumented in this encounter Care Teams Batch Dumper Relationship Specialty Start Date End Date Kenroy Freeman [place] [address] PCP - General Nurse Practitioner 11/15/19 documented as of this encounter
--- OUTSIDE RECORDS SUMMARY | 2024-12-20 13:31 | XMS_ITS | Encounter Summary ---
Author Organization [facility] Address [address] [place] [address] Phone Care Team Providers Care Economics Instructor Name Role Phone Kenroy Freeman NIRALI Primary Care Provider [phone] Encounter Details Date Type Department Care Team (Late st Contact Info) Description 06/01/2023 Documentation Only [facility] [address] [place] [address] Deya Chowdhury [address] [place] [address] Social History Tobacco Use Types [...] Visit [facility] [address] [place] [address] Reginaldo Eagle MD [address] [place] [address] [place] [address] documented as of this encounter Visit Diagnoses Not on filedocumented in this encounter Care Teams Economics Instructor Relationship Specialty Start Date End Date Kenroy Freeman NP [facility] [place] [address] PCP - General Nurse Practitioner 11/15/19 documented as of this encounter
--- OUTSIDE RECORDS SUMMARY | 2024-12-20 13:31 | XMS_ITS | Encounter Summary ---
Author Organization [facility] Address [address] [place] [address] Phone Care Team Providers Care Technologist Infectious Disease Name Role Phone Kenroy Freeman NIRALI Primary Care Provider [phone] Encounter Details Date Type Department Care Team (Late st Contact Info) Description 03/20/2024 Documentation Only [facility] [address] [place] [address] Reanna Goyal [address] [place] [address] Social History Tobacco Use Types [...] Transplant [facility] [address] [place] [address] Reginaldo Eagle MD [address] [facility] [place] [address] documented as of this encounter Visit Diagnoses Not on filedocumented in this encounter Care Teams Technologist Infectious Disease Relationship Specialty Start Date End Date Kenroy Freeman NP [facility] [place] [address] PCP - General Nurse Practitioner 11/15/19 documented as of this encounter
--- OUTSIDE RECORDS SUMMARY | 2024-12-20 13:31 | XMS_ITS | Encounter Summary ---
Author Organization [facility] Address [address] [place] [address] Phone Care Team Providers Care Safe And Vault Mechanic Name Role Phone Kenroy Freeman NIRALI Primary Care Provider [phone] Encounter Details Date Type Department Care Team (Late st Contact Info) Description 08/08/2022 Documentation Only [facility] [address] [place] [address] Tonya Wilson PA [address] [place] [address] Social History Tobacco Use Types [...] [facility] [address] [place] [address] Reginaldo Eagle MD [address] [place] [address] documented as of this encounter Visit Diagnoses Not on filedocumented in this encounter Care Teams Safe And Vault Mechanic Relationship Specialty Start Date End Date Kenroy Freeman [place] [address] PCP - General Nurse Practitioner 11/15/19 documented as of this encounter
== END 2024-12-20 14:28 | disposition home or self-care (01) ==
PROVIDERS: PCP Nurse Practitioner Family; Visit Provider Physician Assistant
DX: M25.511 Pain in right shoulder (principal)

== ENCOUNTER 2024-12-20 13:22 | Outpatient (REF) | payer OTHER, SELFPAY ==
--- NOTE | ~2024-12-20 | XR_ITS ---
EXAMINATION: XR SHOULDER, RIGHT CLINICAL INFORMATION: M25.511 - Pain in right shoulder COMPARISON: Correlated to chest x-ray dated January 22, 2022. TECHNIQUE: AP external rotation, Grashey, scapular Y, and axillary views of the right shoulder. FINDINGS: Sclerosis and subchondral cyst formation within the articular surface of the acromioclavicular joint and the greater tuberosity of the right humerus. No acute cortical disruption or malalignment. No lytic or blastic lesions. XR/XR shoulder RT min 2V IMPRESSION: Osteoarthritis/osteoarthrosis, right acromioclavicular joint and greater tuberosity right humerus. Electronically signed by: Aníbal Moody MD 12/20/2024 02:03 PM EDT
== END 2024-12-20 13:23 | disposition home or self-care (01) ==
LOC: HO.HMGCX 13:22
PROVIDERS: PCP Nurse Practitioner Family; Visit Provider Physician Assistant
DX: M25.511 Pain in right shoulder (principal)
CPT/HCPCS: 73030; 99212

== ENCOUNTER → 2024-12-20 13:44 | Outpatient (BNV) | payer OTHER, SELFPAY | PROVIDERS: PCP Nurse Practitioner Family; Visit Provider Radiology Diagnostic Radiology | DX: M19.011 Primary osteoarthritis, right shoulder (principal) | CPT/HCPCS: 73030 ==

== ENCOUNTER 2024-12-24 13:30 | Outpatient (AMB) | payer OTHER, SELFPAY ==
--- NOTE | 2024-12-24 13:39 | A.OFFVIS_ITS ---
Vital Signs 12/24/24 13:42 Height 5 ft 1 in Weight 220 lb BMI 41.6 Intake Visit Reasons: OV-F/UP Right Knee Durolane INJ,Last inj 09/19/24 Intake Note: Miriam is a 59 year old female who presents today as a follow up from her right knee Durolane injection, Last injection 09/19/24. Patient states that the injection did help for a little bit but wore off quickly. She states that about a month ago her right knee pain started to increase. She wishes to hold off on total knee replacement surgery for as long as possible. She continues with her weight loss program. Allergies amlodipine (AMLODIPINE) Allergy (Unknown, Verified 12/24/24 13:42) RASH cephalexin (From KEFLEX) Allergy (Unknown, Verified 12/24/24 13:42) RASH levofloxacin (From LEVAQUIN) Allergy (Unknown, Verified 12/24/24 13:42) RASH Medication List - Last Reconciled 12/24/24 by Kp Cannon MD acetaminophen (Tylenol Extra Strength) 1,000 mg (2 x 500 mg) PO Q6H PRN albuterol sulfate 90 mcg/actuation (Ventolin HFA) 1 inh inhalation QID PRN alirocumab (Praluent Pen) 75 mg subcut Q2W 90 days aspirin (Adult Aspirin Regimen) 81 mg PO DAILY 90 days atorvastatin 80 mg PO DAILY tfqjuztri-rfsnxjjm-omrgcxl ala 50-200-25 mg (Biktarvy) 1 tab PO DAILY 90 days cyclobenzaprine 5 mg PO Q8H PRN diclofenac sodium 50 mg PO Q12H PRN ezetimibe 10 mg PO DAILY levothyroxine (Synthroid) 88 mcg orally 100 mcg orally once a week; take 88mcg all other days of the week; levothyroxine (Synthroid) 100 mcg orally 100 mcg orally once a week; take 88mcg all other days of the week; lorazepam 1 mg PO BEDTIME PRN metoprolol succinate ER 100 mg PO BID nifedipine ER 30 mg PO DAILY [facility] Medical History (Updated 12/20/24 @ 13:37 by Leigha Croft PA-C) CKD (chronic kidney disease) stage 3, GFR 30-59 ml/min 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 Anxiety Morbid obesity Other and unspecified hyperlipidemia Essential hypertension Atherosclerotic cardiovascular disease Pituitary microadenoma Vitamin D deficiency Graves disease Post-surgical hypothyroidism Osteoarthritis GERD (gastroesophageal reflux disease) Leukopenia Cervical radiculitis Lumbar radiculopathy Pernicious anemia Obstructive sleep apnea Raynaud's phenomenon Pituitary microadenoma 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 Mother Stroke Sister Diabetes mellitus Maternal Grandmother Unknown family medical history Brother Cancer Sister No problems noted. Brother No problems noted. Daughter Healthy female Social History Housing: Apartment Are you a primary anesthesiologist and critical care to a significant other at home: No Do you presently have visiting nurse or other home services: No Alcohol intake: current Alcohol intake frequency: holidays/special occasions only Patient Tobacco Use Status: Never used Tobacco e-Cigarette/Vaping Use: Never Used Second Hand Smoke Exposure: No service: No Current occupational status: disabled Cognitive needs: No Hearing needs: No Vision needs: Yes Female Reproductive History Menstrual Age of Menarche: 13 Physical Exam Vital Signs: BMI result Body Mass Index 41.6 Extrem Other: Right knee examination shows a minimal effusion, palpable crepitus with range of motion, pain with range of motion, no instability Results Reviewed Results Reviewed: X-rays of the patient's right knee taken previously show joint space narrowing, subchondral sclerosis, no acute bony abnormalities Assessment & Plan Assessment & Plan (1) Arthritis of right knee: Code(s): M17.11 - Unilateral primary osteoarthritis, right knee Category: Medical Plan Ms. Chacon presents with right knee pain due to degenerative joint disease. The patient has not gotten lasting relief from viscosupplementation injections or cortisone injections. Thus, I will refer the patient to our pain management department here at [facility] for further information regarding nonsurgical treatment options such as a nerve stimulation procedure. The patient will follow-up as instructed. Feel free to call me at any time should questions regarding her orthopedic management arise. I spent 20 minutes in reviewing the patient's records and imaging studies, seeing the patient and documenting in the medical record. Orders: Referrals Pain Management Referral M17.11 - Unilateral primary osteoarthritis, right knee Coding Level of Care Code Est Pt Level 3 (13400) Complex EM visit Add On G2211 Diagnoses Arthritis of right knee M17.11
[2024-12-24 13:42] VITALS: BMI 41.6
--- OUTSIDE RECORDS SUMMARY | 2024-12-24 16:00 | XMS_ITS | Clinical Summary ---
Author Organization [facility] Address [address] [place] [address] Care Team Providers Care Deputy Prosecuting Attorney Name Role Phone Unavailable Primary Care Provider [...]
--- OUTSIDE RECORDS SUMMARY | 2024-12-24 16:00 | XMS_ITS | Encounter Summary ---
Author Organization [facility] Address [address] [place] [address] Phone Care Team Providers Care Strategic Communications Manager Name Role Phone Kenroy Freeman NIRALI Primary Care Provider [phone] Encounter Details Date Type Department Care Team (Late st Contact Info) Description 06/02/2023 Documentation Only [facility] [address] [place] [address] Reanna Goyal [address] [place] [address] Social History Tobacco Use Types [...] Visit [facility] [address] [place] [address] Reginaldo Eagle MD [address] [facility] [place] [address] documented as of this encounter Visit Diagnoses Not on filedocumented in this encounter Care Teams Strategic Communications Manager Relationship Specialty Start Date End Date Kenroy Freeman NP [place] [address] PCP - General Nurse Practitioner 11/15/19 documented as of this encounter
--- OUTSIDE RECORDS SUMMARY | 2024-12-24 16:00 | XMS_ITS | Encounter Summary ---
Author Organization [facility] Address [address] [place] [address] Phone Care Team Providers Care Geographic Area Intelligence Officer Name Role Phone Kenroy Freeman NIRALI Primary Care Provider [phone] Encounter Details Date Type Department Care Team (Late st Contact Info) Description 08/18/2021 Documentation Only [facility] [address] [place] [address] Jose Martin Mccall MD [address] [place] [address] Social History Tobacco Use Types [...] Visit [facility] [address] [place] [address] Reginaldo Eagle MD [address] [place] [address] documented as of this encounter Visit Diagnoses Not on filedocumented in this encounter Care Teams Geographic Area Intelligence Officer Relationship Specialty Start Date End Date Kenroy Freeman NP [facility] [place] [address] PCP - General Nurse Practitioner 11/15/19 documented as of this encounter
--- OUTSIDE RECORDS SUMMARY | 2024-12-24 16:00 | XMS_ITS | Encounter Summary ---
Author Organization [facility] Address [address] [place] [address] Phone Care Team Providers Care Shopper Marketing Manager Name Role Phone Kenroy Freeman NIRALI Primary Care Provider [phone] Encounter Details Date Type Department Care Team (Late st Contact Info) Description 08/18/2022 Documentation Only [facility] [address] [place] [place] [address] Elana ChowdaryEhrhardt, [place] [address] [place] [address] Social History Tobacco Use Types [...] [facility] [address] [place] [place] [address] Reginaldo Eagle MD [address] [facility] [address] [facility] [place] [address] documented as of this encounter Visit Diagnoses Not on filedocumented in this encounter Care Teams Shopper Marketing Manager Relationship Specialty Start Date End Date Kenroy Freeman [place] [address] PCP - General Nurse Practitioner 11/15/19 documented as of this encounter
--- OUTSIDE RECORDS SUMMARY | 2024-12-24 16:00 | XMS_ITS | Encounter Summary ---
Author Organization [facility] Address [address] [facility] [address] [place] [address] Phone Care Team Providers Care Flooring Salesperson Name Role Phone Reyes Beach MD Primary Care Provider [phone] Reason for Referral * MRI/CAT Scan - Closed Specialty Diagnoses / Procedures Referred By Katelynn feldman Referred To Contact Procedures CT Cardiac Outside (No Interpretation) Regino Bang MD Phone: tel: fax: [email or web address] Referral ID Status Reason Start Date Expiration Date Visits Re quested Visits Authorized [id number] Closed 09/11/2018 09/11/2019 1 1 Encounter Details Date Type Department Care Team (Late st Contact Info) Description 09/11/2018 Transcribe Orders [facility] [address] [place] [address] [place] [address] [place] [id number] [email or web address] Social History Tobacco Use Types [...] on filedocumented in this encounter Care Teams Flooring Salesperson Relationship Specialty Start Date End Date Reyes Beach MD [email or web address] PCP - General Internal Medicine 08/22/18 documented as of this encounter Additional Source Comments The information contained in this document represents components of the legal health record. It is not the complete legal health record.[facility]
--- OUTSIDE RECORDS SUMMARY | 2024-12-24 16:00 | XMS_ITS | Encounter Summary ---
Author Organization [facility] Address [address] [place] [address] Phone Care Team Providers Care Wood Grainer Name Role Phone Kenroy Freeman NIRALI Primary Care Provider [phone] Encounter Details Date Type Department Care Team (Late st Contact Info) Description 08/18/2021 Documentation Only [facility] [address] [place] [address] Jose Martin Mccall MD [address] [place] [address] Social History Tobacco Use Types [...] Visit [facility] [address] [place] [address] Reginaldo Eagle MD [address] [place] [address] documented as of this encounter Visit Diagnoses Not on filedocumented in this encounter Care Teams Wood Grainer Relationship Specialty Start Date End Date Kenroy Freeman [place] [address] PCP - General Nurse Practitioner 11/15/19 documented as of this encounter
--- OUTSIDE RECORDS SUMMARY | 2024-12-24 16:00 | XMS_ITS | Encounter Summary ---
Author Organization [facility] Address [address] [place] [address] Phone Care Team Providers Care Local Operator Name Role Phone Kenroy Freeman NIRALI Primary Care Provider [phone] Encounter Details Date Type Department Care Team (Late st Contact Info) Description 09/27/2021 Documentation Only [facility] [address] [place] [address] Jose Martin Mccall MD [address] [facility] [address] [place] [address] Social History Tobacco Use [...] Visit [facility] [address] [place] [place] [address] Reginaldo Eagle MD [address] [facility] [place] [address] documented as of this encounter Visit Diagnoses Not on filedocumented in this encounter Care Teams Local Operator Relationship Specialty Start Date End Date Kenroy Freeman NP [facility] [place] [address] PCP - General Nurse Practitioner 11/15/19 documented as of this encounter
--- OUTSIDE RECORDS SUMMARY | 2024-12-24 16:00 | XMS_ITS | Patient Health Record ---
Author [facility] Address [address] [place] [address] Care Team Providers Care Cafe Operator Name Role Phone Kenroy Sánchez Primary Care Provider Unav ailable Black, Cherise Unavailable [phone] Allergies Allergen (clinical drug ingredient) Drug/Non Drug [...] Status Risk Notes Problem Acquired hallux valgus (74705281) Hallux valgus (acquired), left foot (M20.12) Active confirmed Problem Acquired hallux valgus (01104526) Hallux valgus (acquired), right foot (M20.11) Active confirmed Problem 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) Active confirmed Problem Pronation deformity of right foot (M21.6X1) Active confirmed Plan Of Treatment No Information Insurance Providers Payer Name Payer Address Payer Phone Subscriber Number Group Number Insured Name Patient Relationship to Insured Coverage Start Date Coverage End Date [facility] [employer] Claims [address] [place] [phone] [id number] Miriam Chacon Self - patient is the insured Medical (General) History Medical History History ICD Code Anxiety Depression High blood pressure raynauds disease Sciatica thyroid HIV Surgical History Surgery Date(Month/Year) tubes in ears tubal ligation 2000 shoulder surgery
--- OUTSIDE RECORDS SUMMARY | 2024-12-24 16:00 | XMS_ITS | Encounter Summary ---
Author Organization [facility] Address [address] [place] [address] Phone Care Team Providers Care Industrial Hygiene Manager Name Role Phone Kenroy Freeman NIRALI Primary Care Provider [phone] Encounter Details Date Type Department Care Team (Late st Contact Info) Description 05/13/2021 Documentation Only [facility] [address] [place] [address] Jose Martin Mccall MD [address] [place] [address] Social History Tobacco Use [...] Visit [facility] [address] [place] [address] Reginaldo Eagle MD [address] [place] [address] documented as of this encounter Visit Diagnoses Not on filedocumented in this encounter Care Teams Industrial Hygiene Manager Relationship Specialty Start Date End Date Kenroy Freeman NP [facility] [place] [address] PCP - General Nurse Practitioner 11/15/19 documented as of this encounter
--- OUTSIDE RECORDS SUMMARY | 2024-12-24 16:00 | XMS_ITS | Clinical Summary ---
Author Organization [facility] Address [address] [address] Phone Care Team Providers Care Spreading Machine Operator Name Role Phone Reyes Beach MD Primary Care Provider [phone] Allergies Active Allergy Reactions Criticality Noted Date [...] topic Medical Devices Not on file Insurance [facility] ONE CARE MEDICARE REPLACEMENT [place] [id number] MEDICARE REPLACEMENT MEDICARE REPLACEMENT MEDICARE REPLACEMENT MEDICARE REPLACEMENT MEDICARE REPLACEMENT MEDICARE [place] [address] ONE CARE MEDICARE REPLACEMENT [facility] CARE MEDICARE REPLACEMENT Care Teams Spreading Machine Operator Relationship Specialty Start Date End Date Reyes Beach MD PCP - General Internal Medicine 08/22/18 Additional Source Comments The information contained in this document represents components of the legal health record. It is not the complete legal health record.[facility]
--- OUTSIDE RECORDS SUMMARY | 2024-12-24 16:00 | XMS_ITS | Encounter Summary ---
Author Organization [facility] Address [address] [place] [address] Phone Care Team Providers Care Certified Art Therapist Name Role Phone Kenroy Freeman NIRALI Primary Care Provider [phone] Encounter Details Date Type Department Care Team (Late st Contact Info) Description 06/01/2023 Documentation Only [facility] [address] [place] [address] Deya Chowdhury [address] [place] [address] Social History Tobacco Use Types [...] Visit [facility] [address] [place] [address] Reginaldo Eagle MD [address] [place] [address] [place] [address] documented as of this encounter Visit Diagnoses Not on filedocumented in this encounter Care Teams Certified Art Therapist Relationship Specialty Start Date End Date Kenroy Freeman NP [facility] [place] [address] PCP - General Nurse Practitioner 11/15/19 documented as of this encounter
--- OUTSIDE RECORDS SUMMARY | 2024-12-24 16:00 | XMS_ITS | Encounter Summary ---
Author Organization [facility] Address [address] [place] [address] Phone Care Team Providers Care Ceiling Insulation Blower Name Role Phone Kenroy Freeman NP Primary Care Provider [phone] Encounter Details Date Type Department Care Team (Late st Contact Info) Description 03/01/2021 Documentation Only [facility] [address] [place] [address] Falguni Whitney PA Social History Tobacco Use [...] Visit [facility] [address] [place] [address] Reginaldo Eagle MD [address] [place] [address] [address]. [place] [address] documented as of this encounter Visit Diagnoses Not on filedocumented in this encounter Care Teams Ceiling Insulation Blower Relationship Specialty Start Date End Date Kenroy Freeman NP [address] [place] [address] PCP - General Nurse Practitioner 11/15/19 documented as of this encounter
--- OUTSIDE RECORDS SUMMARY | 2024-12-24 16:00 | XMS_ITS | Encounter Summary ---
Author Organization [facility] Address [address] [place] [address] Phone Care Team Providers Care Membership Sales Manager Name Role Phone Kenroy Freeman NIRALI Primary Care Provider [phone] Encounter Details Date Type Department Care Team (Late st Contact Info) Description 03/20/2024 Documentation Only [facility] [address] [place] [address] Reanna Goyal [address] [place] [address] Social History Tobacco Use Types [...] [facility] [address] [place] [address] Reginaldo Eagle MD [address] [facility] [place] [address] documented as of this encounter Visit Diagnoses Not on filedocumented in this encounter Care Teams Membership Sales Manager Relationship Specialty Start Date End Date Kenroy Freeman NP [facility] [place] [address] PCP - General Nurse Practitioner 11/15/19 documented as of this encounter
--- OUTSIDE RECORDS SUMMARY | 2024-12-24 16:00 | XMS_ITS | Encounter Summary ---
Author Organization [facility] Address [address] [place] [address] Phone Care Team Providers Care Manager Shell Name Role Phone Kenroy Freeman NIRALI Primary Care Provider [phone] Encounter Details Date Type Department Care Team (Late st Contact Info) Description 08/08/2022 Documentation Only [facility] [address] [place] [address] Tonya Wilson PA [address] [place] [address] Social History Tobacco Use Types [...] Visit [facility] [address] [place] [address] Reginaldo Eagle MD [address] [facility] [place] [address] documented as of this encounter Visit Diagnoses Not on filedocumented in this encounter Care Teams Manager Shell Relationship Specialty Start Date End Date Kenroy Freeman NP [facility] [address] PCP - General Nurse Practitioner 11/15/19 documented as of this encounter
--- OUTSIDE RECORDS SUMMARY | 2024-12-24 16:00 | XMS_ITS | Encounter Summary ---
Author Organization [facility] Address [address] [place] [address] Phone Care Team Providers Care Canvas Baster Jumpbasting Name Role Phone Kenroy Freeman NIRALI Primary Care Provider Encounter Details Date Type Department Care Team (Late st Contact Info) Description 10/13/2021 Documentation Only [facility] [address] [address] Jose Martin Mccall MD [address] [place] [address] Social History Tobacco Use Types [...] [facility] [address] [address] Reginaldo Eagle MD [address] [place] [address] documented as of this encounter Visit Diagnoses Not on filedocumented in this encounter Care Teams Canvas Baster Jumpbasting Relationship Specialty Start Date End Date Kenroy Freeman NP [facility] [place] [address] PCP - General Nurse Practitioner 11/15/19 documented as of this encounter
--- OUTSIDE RECORDS SUMMARY | 2024-12-24 16:01 | XMS_ITS | Encounter Summary ---
Author Organization [facility] Address [address] [facility] [address] [place] [address] Phone Care Team Providers Care Instructor Decorating Name Role Phone Reyes Beach MD Primary Care Provider [phone] Encounter Details Date Type Department Care Team (Late st Contact Info) Description 04/20/2021 Procedure Pass [facility], [place] [address] [place] [address] Social History Tobacco Use Types Packs/Day Years [...] documented as of this encounter Care Teams Instructor Decorating Relationship Specialty Start Date End Date Reyes Beach MD PCP - General Internal Medicine 08/22/18 documented as of this encounter Additional Source Comments The information contained in this document represents components of the legal health record. It is not the complete legal health record.[facility]
--- OUTSIDE RECORDS SUMMARY | 2024-12-24 16:01 | XMS_ITS | Clinical Summary ---
Author Organization [facility], Address [address] [place] [address] [place] [address] Phone Care Team Providers Care Doll Eye Setter Name Role Phone Kenroy Freeman NP Primary Care Provider [phone] Allergies Active Allergy Reactions Criticality Noted Date [...] [facility] [place], [address] [place] [address] Reginaldo Eagle MD Stage 3a chronic kidney disease (HCC) (Primary Dx) 10/02/2024 Orders Only [facility] [address] [address] Kati Casas MA Stage 3a chronic kidney disease (HCC) (Primary Dx); Essential hypertension; Hematuria, not otherwise specified from Last 3 Months Immunizations Immunization Administration Dates Next Due H1N1 Inj 02/25/2016 Influenza, MDCK, Quadrivalent, with preservative 01/31/2018 Family History Medical History Relation Comments Heart disease Father [place] Stroke Father Hypertension Mother Cancer Sibling 1 [...] [facility] [place], [address] [place] [address] Reginaldo Eagle MD [address] [place] [address] Health Maintenance Due Date Last Done [...] (6 to 49 Years) Discontinued 03/10/2015 Insurance [facility] Dual SNP ([id number]) [place] [id number] [place] [id number] [place] [id number] Care Teams Doll Eye Setter Relationship Specialty Start Date End Date Kenroy Freeman NP [facility] [place], [place] [id number] PCP - General Nurse Practitioner 11/15/19
--- OUTSIDE RECORDS SUMMARY | 2024-12-24 16:01 | XMS_ITS | Encounter Summary ---
Author Organization [facility] Address [address] [place] [address] Phone Care Team Providers Care Video Intern Name Role Phone Kenroy Freeman NIRALI Primary Care Provider [phone] Encounter Details Date Type Department Care Team (Late st Contact Info) Description 09/19/2022 Documentation Only [facility] [address] [place] [address] Tonya Wilson PA [address] [place] [address] Social History Tobacco Use Types [...] Visit [facility] [address] [place] [address] Reginaldo Eagle MD [address] [place] [address] documented as of this encounter Visit Diagnoses Not on filedocumented in this encounter Care Teams Video Intern Relationship Specialty Start Date End Date Kenroy Freeman NP [facility] [place] [address] PCP - General Nurse Practitioner 11/15/19 documented as of this encounter
== END 2024-12-24 13:53 | disposition home or self-care (01) ==
LOC: HO.HOS 13:30
PROVIDERS: PCP Nurse Practitioner Family; Visit Provider Orthopaedic Surgery
DX: M17.11 Unilateral primary osteoarthritis, right knee (principal)
CPT/HCPCS: 99213; G2211

== ENCOUNTER → 2024-12-24 13:30 | Outpatient (BNVA) | payer OTHER, SELFPAY | PROVIDERS: PCP Nurse Practitioner Family; Visit Provider Orthopaedic Surgery | DX: M17.11 Unilateral primary osteoarthritis, right knee (principal) | CPT/HCPCS: 99212 ==

== ENCOUNTER 2024-12-30 13:52 | Outpatient (REF) | payer OTHER, SELFPAY ==
--- OUTSIDE RECORDS SUMMARY | 2024-12-30 19:11 | XMS_ITS | Patient Health Record ---
Author Organization [facility] Address [address] [place] [address] Care Team Providers Care Admitting Office Escort Name Role Phone Kenroy Sánchez Primary Care Provider Unav ailable Black, Cherise Unavailable [phone] Allergies Allergen (clinical drug ingredient) Drug/Non Drug [...] Status Risk Notes Problem Acquired hallux valgus (37105386) Hallux valgus (acquired), left foot (M20.12) Active confirmed Problem Acquired hallux valgus (97057868) Hallux valgus (acquired), right foot (M20.11) Active confirmed Problem 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) Active confirmed Problem Pronation deformity of right foot (M21.6X1) Active confirmed Plan Of Treatment No Information Insurance Providers Payer Name Payer Address Payer Phone Subscriber Number Group Number Insured Name Patient Relationship to Insured Coverage Start Date Coverage End Date [facility] [employer] Claims [address] [place] [phone] [id number] Miriam Chacon Self - patient is the insured Medical (General) History Medical History History ICD Code Anxiety Depression High blood pressure raynauds disease Sciatica thyroid HIV Surgical History Surgery Date(Month/Year) tubes in ears tubal ligation 2000 shoulder surgery
--- OUTSIDE RECORDS SUMMARY | 2024-12-30 19:11 | XMS_ITS | Encounter Summary ---
Author Organization [facility] Address [address] [place] [address] Phone Care Team Providers Care Button Attaching Machine Operator Name Role Phone Kenroy Freeman NIRALI Primary Care Provider [phone] Encounter Details Date Type Department Care Team (Late st Contact Info) Description 08/18/2021 Documentation Only [facility] [address] [place] [address] Jose Martin Mccall MD [address] [place] [address] Social History Tobacco Use Types [...] Services Of [facility] [address] [place] [address] Reginaldo Eagle MD [address] [place] [address] documented as of this encounter Visit Diagnoses Not on filedocumented in this encounter Care Teams Button Attaching Machine Operator Relationship Specialty Start Date End Date Kenroy Freeman NP [facility] [place] [address] PCP - General Nurse Practitioner 11/15/19 documented as of this encounter
--- OUTSIDE RECORDS SUMMARY | 2024-12-30 19:11 | XMS_ITS | Encounter Summary ---
Author Organization [facility] Address [address] [place] [address] Phone Care Team Providers Care Equine Dentist Name Role Phone Kenroy Freeman NIRALI Primary Care Provider [phone] Encounter Details Date Type Department Care Team (Late st Contact Info) Description 08/18/2022 Documentation Only [facility] [address] [place] [address] Elana Chowdary[place], [place] [address] [place] [address] Social History Tobacco Use Types [...] [facility] Transplant [facility] [address] [place] [address] Reginaldo Eagle MD [address] [address] [place] [address] documented as of this encounter Visit Diagnoses Not on filedocumented in this encounter Care Teams Equine Dentist Relationship Specialty Start Date End Date Kenroy Freeman NP [facility] [place] [address] PCP - General Nurse Practitioner 11/15/19 documented as of this encounter
--- OUTSIDE RECORDS SUMMARY | 2024-12-30 19:11 | XMS_ITS | Clinical Summary ---
Author Organization [facility] Address [address] [place] [address] Care Team Providers Care Industrial Truck Driver Name Role Phone Unavailable Primary Care Provider [...]
--- OUTSIDE RECORDS SUMMARY | 2024-12-30 19:11 | XMS_ITS | Encounter Summary ---
Author Organization [facility] Address [address] [place] [address] Phone Care Team Providers Care Certified Retinal Angiographer Name Role Phone Kenroy Freeman NP Primary Care Provider [phone] Encounter Details Date Type Department Care Team (Late st Contact Info) Description 03/01/2021 Documentation Only [facility] [address] [place] [address] Falguni Whitney PA Social History Tobacco Use [...] Visit [facility] Of [address] [place] [address] Reginaldo Eagle MD [address] [place] [address] [place] [address] documented as of this encounter Visit Diagnoses Not on filedocumented in this encounter Care Teams Certified Retinal Angiographer Relationship Specialty Start Date End Date Kenroy Freeman NP [address] [place] [address] PCP - General Nurse Practitioner 11/15/19 documented as of this encounter
--- OUTSIDE RECORDS SUMMARY | 2024-12-30 19:11 | XMS_ITS | Encounter Summary ---
Author Organization [facility] Address [address] [place] [address] Phone Care Team Providers Care Interventional Radiology Rn Name Role Phone Kenroy Freeman NIRALI Primary Care Provider [phone] Encounter Details Date Type Department Care Team (Late st Contact Info) Description 05/13/2021 Documentation Only [facility] [address] [place] [address] Jose Martin Mccall MD [address] [place] [address] Social History Tobacco Use Types [...] [facility] [address] [place] [address] Reginaldo Eagle MD [address] [place] [address] documented as of this encounter Visit Diagnoses Not on filedocumented in this encounter Care Teams Interventional Radiology Rn Relationship Specialty Start Date End Date Kenroy Freeman NP [facility] [place] [address] PCP - General Nurse Practitioner 11/15/19 documented as of this encounter
--- OUTSIDE RECORDS SUMMARY | 2024-12-30 19:11 | XMS_ITS | Encounter Summary ---
Author Organization [facility] Address [address] [place] [address] Phone Care Team Providers Care Retail Sales Professional Name Role Phone Kenroy Freeman NIRALI Primary Care Provider [phone] Encounter Details Date Type Department Care Team (Late st Contact Info) Description 08/18/2021 Documentation Only [facility] [address] [place] [address] oJse Martin Mccall MD [address] [place] [address] Social History Tobacco Use Types [...] [facility] [address] [place] [address] Reginaldo Eagle MD [address] [place] [address] documented as of this encounter Visit Diagnoses Not on filedocumented in this encounter Care Teams Retail Sales Professional Relationship Specialty Start Date End Date Kenroy Freeman NP [facility] [place] [address] PCP - General Nurse Practitioner 11/15/19 documented as of this encounter
--- OUTSIDE RECORDS SUMMARY | 2024-12-30 19:12 | XMS_ITS | Clinical Summary ---
Author Organization [facility], Address [address] [place] [address] [place] [address] Phone Care Team Providers Care Inset Cutter Name Role Phone Kenroy Freeman NP Primary Care Provider [phone] Allergies Active Allergy Reactions Criticality Noted Date [...] Visit [facility] [place], [address] [place] [place] [address] Reginaldo Eagle MD Stage 3a chronic kidney disease (HCC) (Primary Dx) 10/02/2024 Orders Only [facility] [address] [facility] [address] Kati Casas [place] Stage 3a chronic kidney disease (HCC) (Primary Dx); Essential hypertension; Hematuria, not otherwise specified from Last 3 Months Immunizations Immunization Administration Dates Next Due H1N1 Inj 02/25/2016 Influenza, MDCK, Quadrivalent, with preservative 01/31/2018 Family History Medical History Relation Comments Heart disease Father [place] Stroke Father Hypertension Mother Cancer Sibling 1 [...] Visit [facility] [place], [address] [facility] [address] Reginaldo Eagle MD [address] [facility] [place] [address] Health Maintenance [...] (6 to 49 Years) Discontinued 03/10/2015 Insurance [facility] Dual SNP ([id number]) [place] [id number] [place] [address] [address] [place] [id number] Care Teams Inset Cutter Relationship Specialty Start Date End Date Kenroy Freeman NP [facility] [place], [place] [phone] PCP - General Nurse Practitioner 11/15/19
--- OUTSIDE RECORDS SUMMARY | 2024-12-30 19:12 | XMS_ITS | Encounter Summary ---
Author Organization [facility] Address [address] [place] [address] Phone Care Team Providers Care Sterile Process Coordinator Name Role Phone Kenroy Freeman NIRALI Primary Care Provider [phone] Encounter Details Date Type Department Care Team (Late st Contact Info) Description 06/01/2023 Documentation Only [facility] [address] [place] [address] Deya Chowdhury [address] [place] [address] Social History Tobacco Use Types [...] Visit [facility] [address] [place] [address] Reginaldo Eagle MD [address] [place] [address] [place] [address] documented as of this encounter Visit Diagnoses Not on filedocumented in this encounter Care Teams Sterile Process Coordinator Relationship Specialty Start Date End Date Kenroy Freeman NP [facility] [place] [address] PCP - General Nurse Practitioner 11/15/19 documented as of this encounter
--- OUTSIDE RECORDS SUMMARY | 2024-12-30 19:12 | XMS_ITS | Encounter Summary ---
Author Organization [facility] Address [address] [place] [address] Phone Care Team Providers Care Director Speech Name Role Phone Kenroy Freeman NIRALI Primary Care Provider [phone] Encounter Details Date Type Department Care Team (Late st Contact Info) Description 06/02/2023 Documentation Only [facility] [address] [place] [address] Reanna Goyal [address] [place] [address] Social History Tobacco Use Types [...] Services Of [facility] [address] [place] [address] Reginaldo Eagle MD [address] [facility] [place] [address] documented as of this encounter Visit Diagnoses Not on filedocumented in this encounter Care Teams Director Speech Relationship Specialty Start Date End Date Kenroy Freeman NP [facility] [place] [address] PCP - General Nurse Practitioner 11/15/19 documented as of this encounter
--- OUTSIDE RECORDS SUMMARY | 2024-12-30 19:12 | XMS_ITS | Encounter Summary ---
Author Organization [facility] [employer] Address [address] [place] [address] Phone Care Team Providers Care School Custodian Name Role Phone Kenroy Freeman NIRALI Primary Care Provider [phone] Encounter Details Date Type Department Care Team (Late st Contact Info) Description 09/27/2021 Documentation Only [facility] [employer] [facility] [employer] [address] [place] [address] Jose Martin Mccall MD [address] [place] [address] Social History Tobacco Use Types [...] Services [facility] [employer] [facility] [address] [place] [address] Reginaldo Eagle MD [address] [place] [address] documented as of this encounter Visit Diagnoses Not on filedocumented in this encounter Care Teams School Custodian Relationship Specialty Start Date End Date Kenroy Freeman NP [facility] [place] [address] PCP - General Nurse Practitioner 11/15/19 documented as of this encounter
--- OUTSIDE RECORDS SUMMARY | 2024-12-30 19:12 | XMS_ITS | Encounter Summary ---
Author Organization [facility] Address [address] [place] [address] Phone Care Team Providers Care Regional Economist Name Role Phone Kenroy Freeman NIRALI Primary Care Provider [phone] Encounter Details Date Type Department Care Team (Late st Contact Info) Description 08/08/2022 Documentation Only [facility] [address] [place] [address] Tonya [place] PA [address] [place] [address] Social History Tobacco Use Types [...] And Transplant [facility] [address] [place] [address] Reginaldo Eagle MD [address] [place] [address] documented as of this encounter Visit Diagnoses Not on filedocumented in this encounter Care Teams Regional Economist Relationship Specialty Start Date End Date Kenroy Freeman NP [facility] [place] [address] PCP - General Nurse Practitioner 11/15/19 documented as of this encounter
--- OUTSIDE RECORDS SUMMARY | 2024-12-30 19:12 | XMS_ITS | Encounter Summary ---
Author Organization [facility] Address [address] [facility] [address] [place] [address] Phone Care Team Providers Care Hot Dog Vendor Name Role Phone [place] MD Primary Care Provider [phone] Reason for Referral * MRI/CAT Scan - Closed Specialty Diagnoses / Procedures Referred By Katelynn feldman Referred To Contact Procedures CT Cardiac Outside (No Interpretation) Regino Bang MD Phone: tel: fax: [email or web address] Referral ID Status Reason Start Date Expiration Date Visits Re quested Visits Authorized [id number] Closed 09/11/2018 09/11/2019 1 1 Encounter Details Date Type Department Care Team (Late st Contact Info) Description 09/11/2018 Transcribe Orders [facility] [address] [place] [address] [place] [address] [place] [address] [email or web address] Social History Tobacco Use Types Packs/Day Years [...] on filedocumented in this encounter Care Teams Hot Dog Vendor Relationship Specialty Start Date End Date Re[place] MD [email or web address] PCP - General Internal Medicine 08/22/18 documented as of this encounter Additional Source Comments The information contained in this document represents components of the legal health record. It is not the complete legal health record.[facility]
--- OUTSIDE RECORDS SUMMARY | 2024-12-30 19:12 | XMS_ITS | Encounter Summary ---
Author Organization [facility] Address [address] [employer] [facility] [address] [place] [address] Phone Care Team Providers Care Resource Development Director Name Role Phone [place] MD Primary Care Provider [phone] Encounter Details Date Type Department Care Team (Late st Contact Info) Description 04/20/2021 Procedure Pass [facility], [place] [address] [place] [address] Social History Tobacco Use Types Packs/Day Years [...] documented as of this encounter Care Teams Resource Development Director Relationship Specialty Start Date End Date Re[place] MD PCP - General Internal Medicine 08/22/18 documented as of this encounter Additional Source Comments The information contained in this document represents components of the legal health record. It is not the complete legal health record.[facility]
--- OUTSIDE RECORDS SUMMARY | 2024-12-30 19:12 | XMS_ITS | Clinical Summary ---
Author Organization [facility] Address [address] [address] Phone Care Team Providers Care Film Loader Name Role Phone [place] MD Primary Care Provider [phone] Allergies Active Allergy Reactions Criticality Noted Date [...] topic Medical Devices Not on file Insurance [facility] ONE CARE MEDICARE REPLACEMENT [place] [id number] MEDICARE REPLACEMENT MEDICARE REPLACEMENT MEDICARE REPLACEMENT MEDICARE REPLACEMENT MEDICARE REPLACEMENT MEDICARE [place] [address] [address] ONE CARE MEDICARE REPLACEMENT [facility] CARE MEDICARE REPLACEMENT Care Teams Film Loader Relationship Specialty Start Date End Date Re[place] MD PCP - General Internal Medicine 08/22/18 Additional Source Comments The information contained in this document represents components of the legal health record. It is not the complete legal health record.[facility]
--- OUTSIDE RECORDS SUMMARY | 2024-12-30 19:12 | XMS_ITS | Encounter Summary ---
Author Organization [facility] Address [address] [place] [address] Phone Care Team Providers Care Welder Fitter Arc Name Role Phone Kenroy Freeman NIRALI Primary Care Provider [phone] Encounter Details Date Type Department Care Team (Late st Contact Info) Description 03/20/2024 Documentation Only [facility] Of [address] [place] [address] Reanna Goyal [address] [place] [address] Social History Tobacco Use [...] Visit [facility] [address] [address] Reginaldo Eagle MD [address] [place] [address] documented as of this encounter Visit Diagnoses Not on filedocumented in this encounter Care Teams Welder Fitter Arc Relationship Specialty Start Date End Date Kenroy Freeman NP [facility] [address] PCP - General Nurse Practitioner 11/15/19 documented as of this encounter
--- OUTSIDE RECORDS SUMMARY | 2024-12-30 19:12 | XMS_ITS | Encounter Summary ---
Author Organization [facility] Address [address] [place] [address] Phone Care Team Providers Care Bass Mechanism Maker Name Role Phone Kenroy Freeman NIRALI Primary Care Provider [phone] Encounter Details Date Type Department Care Team (Late st Contact Info) Description 09/19/2022 Documentation Only [facility] Of [address] [place] [address] Tonya [place] PA [address] [place] [address] Social History Tobacco Use Types [...] Services Of [facility] [address] [place] [address] Reginaldo Eagle MD [address] [address] [facility] [place] [address] documented as of this encounter Visit Diagnoses Not on filedocumented in this encounter Care Teams Bass Mechanism Maker Relationship Specialty Start Date End Date Kenroy Freeman [place] [address] PCP - General Nurse Practitioner 11/15/19 documented as of this encounter
--- OUTSIDE RECORDS SUMMARY | 2024-12-30 19:12 | XMS_ITS | Encounter Summary ---
Author Organization [facility] Address [address] [place] [address] Phone Care Team Providers Care Clinical Biochemical Geneticist Name Role Phone Kenroy Freeman NIRALI Primary Care Provider [phone] Encounter Details Date Type Department Care Team (Late st Contact Info) Description 10/13/2021 Documentation Only [facility] [address] [address] Jose Martin Mccall MD [address] [place] [address] Social History Tobacco Use Types [...] Visit [facility] [address] [address] Reginaldo Eagle MD [address] [place] [address] documented as of this encounter Visit Diagnoses Not on filedocumented in this encounter Care Teams Clinical Biochemical Geneticist Relationship Specialty Start Date End Date Kenroy Freeman NP [facility] [place] [address] PCP - General Nurse Practitioner 11/15/19 documented as of this encounter
[2025-01-02 15:03] LABS: HIV RNA PCR Qn Copies NOT DETECTED copies/mL (NOT DETECTED); HIV RNA PCR Qn Log Copies NOT DETECTED (NOT DETECTED)
[2025-01-06 15:09] LABS: Absolute CD3 Count 1617 cells/uL (840-3060); Absolute CD8 Count 784 cells/uL (180-1170); Percent CD3 Cells 83 % (57-85); Percent CD8 Cells 40 % (12-42)
== END 2024-12-30 13:53 | disposition home or self-care (01) ==
LOC: HO.LAB 13:52
PROVIDERS: PCP Nurse Practitioner Family; Visit Provider Internal Medicine
DX: B20 Human immunodeficiency virus [HIV] disease (principal); E53.8 Deficiency of other specified B group vitamins
CPT/HCPCS: 36415; 86359; 86360; 87536

== ENCOUNTER 2025-01-13 12:23 | Outpatient (AMB) | payer OTHER, SELFPAY ==
[2025-01-13 12:29] VITALS: BP 122/88; PULSE 107; RESP 16; O2SAT 97; BMI 43.6
--- NOTE | 2025-01-13 12:29 | MHC.OFFVIS ---
Vital Signs 01/13/25 12:29 Height 5 ft 1 in Weight 231 lb BMI 43.6 BP 122/88 Blood Pressure Location Lt radial Position Sitting Respiration 16 Pulse 107 H Pulse Source Pulse Oximeter Pulse Oximetry (%) 97 Oxygen Delivery Method Room Air Intake Visit Reasons: Unilateral primary osteoarthritis, right knee Marine Equipment Engineer Required: No Allergies amlodipine (AMLODIPINE) Allergy (Unknown, Verified 01/15/25 14:25) RASH cephalexin (From KEFLEX) Allergy (Unknown, Verified 01/15/25 14:25) RASH levofloxacin (From LEVAQUIN) Allergy (Unknown, Verified 01/15/25 14:25) RASH Medication List - Last Reconciled 01/13/25 by Sierra Billings LPN acetaminophen (Tylenol Extra Strength) 1,000 mg (2 x 500 mg) PO Q6H PRN albuterol sulfate 90 mcg/actuation (Ventolin HFA) 1 inh inhalation QID PRN alirocumab (Praluent Pen) 75 mg subcut Q2W 90 days aspirin (Adult Aspirin Regimen) 81 mg PO DAILY 90 days atorvastatin 80 mg PO DAILY zyzijarlv-chqifcjo-mkkyjuv ala 50-200-25 mg (Biktarvy) 1 tab PO DAILY 90 days diclofenac sodium 50 mg PO Q12H PRN ezetimibe 10 mg PO DAILY levothyroxine (Synthroid) 88 mcg orally 100 mcg orally once a week; take 88mcg all other days of the week; levothyroxine (Synthroid) 100 mcg orally 100 mcg orally once a week; take 88mcg all other days of the week; lorazepam 1 mg PO BEDTIME PRN metoprolol succinate ER 100 mg PO BID nifedipine ER 30 mg PO DAILY spironolactone 50 mg PO BID HPI HPI Unilateral primary osteoarthritis, right knee: Details: History of Present Illness The patient is a 59-year-old female presenting with osteoarthritis of the right knee. The condition is attributed to degenerative joint disease and has been managed with corticosteroid and visco supplementation injections, which provided temporary relief. She was referred for consideration of peripheral nerve stimulation of the saphenous nerve due to persistent pain. The patient also has a history of morbid obesity, which she acknowledges as a significant factor in her condition. She is actively attempting weight loss, recognizing its importance in managing her knee pain and overall health. Additionally, the patient reports lower back pain, which has been exacerbated by physical activity and has led to elevated blood pressure during physical therapy sessions. She has a history of hypertension, which has complicated her ability to engage in physical therapy for her back pain. The patient also experiences pain related to iliotibial band syndrome, affecting both legs. She has been advised to perform stretching exercises at home to alleviate symptoms. Pain Description - Onset: Chronic pain in the right knee due to osteoarthritis; low back pain radiating down the lateral thigh regions - Quality: Persistent pain despite previous interventions - Location: Right knee, with additional pain in the lower back and iliotibial band areas - Exacerbating factors: Physical activity, weight - Relieving factors: Temporary relief from injections, advised stretching exercises Physical Exam - Musculoskeletal: Tenderness on palpation of the right knee Results - Imaging: X-ray showing suprapatellar calcification Pain Management - Affect: Pain impacts daily activities and psychological wellbeing - Analgesia: Previous injections provided temporary relief; considering nerve stimulation - Adverse Effects: None reported from current pain management - Activities of Daily Living: Pain limits physical activity; advised to perform stretching exercises - Aberrant Drug Related Behaviors: None reported [facility] Medical History (Updated 01/13/25 @ 12:56 by Jeffery Nowak MD) CKD (chronic kidney disease) stage 3, GFR 30-59 ml/min 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 Anxiety Morbid obesity Other and unspecified hyperlipidemia Essential hypertension Atherosclerotic cardiovascular disease Pituitary microadenoma Vitamin D deficiency Graves disease Post-surgical hypothyroidism Osteoarthritis GERD (gastroesophageal reflux disease) Leukopenia Cervical radiculitis Lumbar radiculopathy Pernicious anemia Obstructive sleep apnea Raynaud's phenomenon Pituitary microadenoma 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 Mother Stroke Sister Diabetes mellitus Maternal Grandmother Unknown family medical history Brother Cancer Sister No problems noted. Brother No problems noted. Daughter Healthy female Social History Housing: Apartment Are you a primary specialist wound care to a significant other at home: No Do you presently have visiting nurse or other home services: No Alcohol intake: current Alcohol intake frequency: holidays/special occasions only Patient Tobacco Use Status: Never used Tobacco e-Cigarette/Vaping Use: Never Used Second Hand Smoke Exposure: No service: No Current occupational status: disabled Cognitive needs: No Hearing needs: No Vision needs: Yes Female Reproductive History Menstrual Age of Menarche: 13 Physical Exam Vital Signs: Last Vital Signs Pulse 107 H 01/13/25 12:29 Resp 16 01/13/25 12:29 BP 122/88 01/13/25 12:29 Pulse Ox 97 01/13/25 12:29 Oxygen Delivery Method Room Air 01/13/25 12:29 BMI result Body Mass Index 43.6 Assessment & Plan Assessment & Plan (1) Lumbar radiculopathy: Code(s): M54.16 - Radiculopathy, lumbar region Category: Medical (2) Arthritis of left knee: Code(s): M17.12 - Unilateral primary osteoarthritis, left knee Category: Medical (3) Left knee pain: Code(s): M25.562 - Pain in left knee Category: Medical Plan Plan Patient was informed and verbally consented to the use of an ambient scribe for clinic note documentation during this visit. 1. Osteoarthritis Of The Right Knee - Plan: Consideration of peripheral nerve stimulation for pain management, noting that placement may be limited due to the habitus of her thigh. - Plan: Start with low dose cortisone injection around the site of suprapatellar calcification. 2. Morbid Obesity - Plan: Encourage weight loss through diet and exercise. 3. Hypertension - Plan: Monitor blood pressure, especially during physical activity. 4. Lower Back Radicular Pain - Plan: Order MRI of the lumbar spine to assess underlying issues. 5. Iliotibial Band Syndrome - Plan: Recommend home stretching exercises to alleviate symptoms. Discussion Notes During the consultation, we discussed the patient's osteoarthritis of the right knee and the potential benefits of peripheral nerve stimulation for pain management. We also considered a low dose cortisone injection to address the suprapatellar calcification. The importance of weight loss was emphasized, and the patient was advised to continue with home exercises to manage her iliotibial band syndrome. Patient Instructions - Schedule an appointment for a right knee injection. - Continue with home stretching exercises to alleviate iliotibial band syndrome symptoms. - Monitor blood pressure regularly, especially during physical activity. - Follow a diet and exercise plan to aid in weight loss. Orders: Orders MR lumbar spine wo con 01/13/25 M54.16 - Radiculopathy, lumbar region Coding Level of Care Code New Pt Level 4 (91190) Diagnoses Lumbar radiculopathy M54.16 Arthritis of left knee M17.12 Left knee pain M25.562
--- OUTSIDE RECORDS SUMMARY | 2025-01-13 13:37 | XMS_ITS | Clinical Summary ---
Author Organization [facility] ity Address [address] [place] [address] Care Team Providers Care Core Driller Helper Name Role Phone Unavailable Primary Care Provider [...]
--- OUTSIDE RECORDS SUMMARY | 2025-01-13 13:37 | XMS_ITS | Patient Health Record ---
Author Organization [facility] Address [address] [place] [address] Care Team Providers Care Professional Nursing Assistant Name Role Phone Kenroy Sánchez Primary Care Provider Unav ailable Black, Cherise Unavailable [phone] Allergies Allergen (clinical drug ingredient) Drug/Non Drug [...] Status Risk Notes Problem Acquired hallux valgus (80297797) Hallux valgus (acquired), left foot (M20.12) Active confirmed Problem Acquired hallux valgus ([id number]) Hallux valgus (acquired), right foot (M20.11) Active confirmed Problem 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) Active confirmed Problem Pronation deformity of right foot (M21.6X1) Active confirmed Plan Of Treatment No Information Insurance Providers Payer Name Payer Address Payer Phone Subscriber Number Group Number Insured Name Patient Relationship to Insured Coverage Start Date Coverage End Date [facility] [employer] Claims [address] [place] [phone] [id number] Miriam Chacon Self - patient is the insured Medical (General) History Medical History History ICD Code Anxiety Depression High blood pressure raynauds disease Sciatica thyroid HIV Surgical History Surgery Date(Month/Year) tubes in ears tubal ligation 2000 shoulder surgery
== END 2025-01-13 12:59 | disposition home or self-care (01) ==
LOC: HO.PMC 12:24
PROVIDERS: PCP Nurse Practitioner Family; Visit Provider Internal Medicine
DX: M25.561 Pain in right knee (principal); M17.11 Unilateral primary osteoarthritis, right knee; M54.16 Radiculopathy, lumbar region; M25.562 Pain in left knee
CPT/HCPCS: 99204

== ENCOUNTER → 2025-01-13 12:23 | Outpatient (BNVA) | payer OTHER, SELFPAY | PROVIDERS: PCP Nurse Practitioner Family; Visit Provider Internal Medicine | DX: M17.12 Unilateral primary osteoarthritis, left knee (principal); M25.562 Pain in left knee; M54.16 Radiculopathy, lumbar region | CPT/HCPCS: 99202 ==

== ENCOUNTER 2025-01-15 13:46 | Outpatient (AMB) | payer OTHER, SELFPAY ==
--- NOTE | 2025-01-15 13:55 | A.OFFVIS_ITS ---
Vital Signs 01/15/25 14:23 Height 5 ft 1 in Weight 235 lb BMI 44.4 Pulse 84 Pulse Source Pulse Oximeter Pulse Oximetry (%) 98 Oxygen Delivery Method Room Air Intake Visit Reasons: 6 month HIV labs Allergies amlodipine (AMLODIPINE) Allergy (Unknown, Verified 01/17/25 11:28) RASH cephalexin (From KEFLEX) Allergy (Unknown, Verified 01/17/25 11:28) RASH levofloxacin (From LEVAQUIN) Allergy (Unknown, Verified 01/17/25 11:28) RASH HPI Comments Details: History of Present Illness The patient is a 59-year-old female presenting for HIV follow-up care. She is currently adherent to her antiretroviral therapy with Biktarvy. Her latest viral load test exhibited an undetectable status, and her CD4 count was recorded at 876. The patient denies any significant health issues or psychological symptoms. Hyperlipidemia is managed with atorvastatin at a dosage of 80 mg daily. There are no reported complications from her medication regimen. Review of Systems - General: Denies feelings of depression or anxiety. - Respiratory: Denies respiratory issues. - Cardiovascular: Denies any heart problems or irregularities. - Gastrointestinal: Denies abdominal issues; reports abdomen as soft and nontender. - Musculoskeletal: Denies tenderness in extremities. Physical Exam - Vitals- Vital signs stable. - Respiratory- Lungs clear. - Cardiovascular- Heart rate and rhythm regular. - Gastrointestinal- Abdomen soft and nontender. - Musculoskeletal- Extremities nontender. Results - Labs: Viral load undetectable as of 12/30; CD4 count at 876. Plan Patient was informed and verbally consented to the use of an ambient scribe for clinic note documentation during this visit. 1. Human immunodeficiency virus [HIV] disease B20 HCC 1 Continue Biktarvy with a prescription written for six months following successful viral suppression. Plan follow-up labs in six months to monitor immune status and viral load. 2. Hyperlipidemia Maintain atorvastatin at 80 mg daily for lipid management. Routine monitoring of lipid levels will be part of ongoing care. Discussion Notes During the visit, I addressed the patient's ongoing management of HIV and hyperlipidemia. The patient is responsive to current therapy, with an excellent CD4 count and undetectable viral load, affirming the effectiveness of Biktarvy. I discussed the importance of continued adherence and monitoring to ensure sustained viral suppression. We consented to ambient technology for the visit. The plan includes a 6-month follow-up for laboratory checks. I also reiterated the continuation of atorvastatin for hyperlipidemia and acquisition of further refills. The patient is considering a personal life change by moving in with her boyfriend; however, this does not currently influence her treatment adherence. Medical Decision Making The management of the patient's HIV has been very successful with Biktarvy, as evidenced by her undetectable viral load and high CD4 count. I chose to continue this regimen due to its efficacy in controlling her HIV. The patient's hyperlipidemia, managed with atorvastatin, is also well-controlled. My objective is to sustain these positive health markers, thus laboratory monitoring for prince th HIV and lipid levels is scheduled in 6 months to ensure ongoing efficacy and adjustment if necessary. Patient Instructions - Continue taking Biktarvy as prescribed. - Continue taking atorvastatin 80 mg daily. - Return for follow-up and laboratory tests in 6 months. - Report any new symptoms or changes in health status. - Adhere to medication regimen consistently. [facility] Medical History (Updated 01/13/25 @ 12:56 by Jeffery Nowak MD) CKD (chronic kidney disease) stage 3, GFR 30-59 ml/min 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 Anxiety Morbid obesity Other and unspecified hyperlipidemia Essential hypertension Atherosclerotic cardiovascular disease Pituitary microadenoma Vitamin D deficiency Graves disease Post-surgical hypothyroidism Osteoarthritis GERD (gastroesophageal reflux disease) Leukopenia Cervical radiculitis Lumbar radiculopathy Pernicious anemia Obstructive sleep apnea Raynaud's phenomenon Pituitary microadenoma 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 Mother Stroke Sister Diabetes mellitus Maternal Grandmother Unknown family medical history Brother Cancer Sister No problems noted. Brother No problems noted. Daughter Healthy female Social History Housing: Apartment Are you a primary post anesthesia care unit nurse to a significant other at home: No Do you presently have visiting nurse or other home services: No Alcohol intake: current Alcohol intake frequency: holidays/special occasions only Patient Tobacco Use Status: Never used Tobacco e-Cigarette/Vaping Use: Never Used Second Hand Smoke Exposure: No service: No Current occupational status: disabled Cognitive needs: No Hearing needs: No Vision needs: Yes Female Reproductive History Menstrual Age of Menarche: 13 Physical Exam Vital Signs: Last Vital Signs Pulse 84 01/15/25 14:23 Pulse Ox 98 01/15/25 14:23 Oxygen Delivery Method Room Air 01/15/25 14:23 BMI result Body Mass Index 44.4 Assessment & Plan Assessment & Plan (1) HIV (human immunodeficiency virus infection): Code(s): B20 - Human immunodeficiency virus [HIV] disease Category: Medical Plan: per note Orders: Orders Lymphocyte Subset Panel 3 5 Months B20 - Human immunodeficiency virus [HIV] disease HIV-1 RNA QN PCR Expanded 5 Months B20 - Human immunodeficiency virus [HIV] disease Medications: New qnyawbzkd-xlbosfch-zbornjx ala 50-200-25 mg (Biktarvy) 1 tab PO DAILY 30 tabs 5RF 30 days Coding Level of Care Code Est Pt Level 4 (38744) Diagnoses HIV (human immunodeficiency virus infection) B20
[2025-01-15 14:23] VITALS: PULSE 84; O2SAT 98; BMI 44.4
== END 2025-01-15 14:51 | disposition home or self-care (01) ==
LOC: HO.HID 13:46
PROVIDERS: PCP Nurse Practitioner Family; Visit Provider Internal Medicine
DX: B20 Human immunodeficiency virus [HIV] disease (principal)
CPT/HCPCS: 99214

== ENCOUNTER → 2025-01-15 13:46 | Outpatient (BNVA) | payer OTHER, SELFPAY | PROVIDERS: PCP Nurse Practitioner Family; Visit Provider Internal Medicine | DX: Z21 Asymptomatic human immunodeficiency virus [HIV] infection status (principal); E78.5 Hyperlipidemia, unspecified | CPT/HCPCS: 99212 ==

== ENCOUNTER 2025-01-17 11:22 | Outpatient (AMB) | payer OTHER, SELFPAY ==
[2025-01-17 11:26] VITALS: BP 126/88; PULSE 87; RESP 16; O2SAT 97; BMI 43.5
--- NOTE | 2025-01-17 11:26 | A.OFFVIS_ITS ---
Vital Signs 01/17/25 11:26 Height 5 ft 1 in Weight 230 lb BMI 43.5 BP 126/88 Blood Pressure Location Lt radial Position Sitting Respiration 16 Pulse 87 Pulse Source Pulse Oximeter Pulse Oximetry (%) 97 Oxygen Delivery Method Room Air Intake Visit Reasons: Right Knee Injection Configuration Management Manager Required: No Wireworker Supervisor: Wireworker Supervisor Present Accompanied by: Kevon Daniel Allergies amlodipine (AMLODIPINE) Allergy (Unknown, Verified 01/17/25 11:28) RASH cephalexin (From KEFLEX) Allergy (Unknown, Verified 01/17/25 11:28) RASH levofloxacin (From LEVAQUIN) Allergy (Unknown, Verified 01/17/25 11:28) RASH HPI HPI Right Knee Injection: Details: History of Present Illness The patient is a 59-year-old female presenting with right knee pain due to suprapatellar calcification. The pain is localized above the patella and is exacerbated by pressure, as noted during the examination. The calcification was identified as a potential source of pain during the ultrasound-guided procedure. Pain Description - Location: Right suprapatellar region - Exacerbating factors: Pressure on the area - Quality: Discomfort noted during needle proximity to calcification Physical Exam - Musculoskeletal: Tenderness noted upon palpation of the right suprapatellar region Results - Ultrasound: Visualization of suprapatellar calcification and bursa Pain Management - Analgesia: Injection of 40 mg Kenalog mixed with bupivacaine 0.5% - Activities of Daily Living: Pain potentially impacting knee function Procedure - Right suprapatellar knee injection: Patient was placed in a supine position, and the right knee was prepped with Cloraprep. Ultrasound was used to visualize the suprapatellar calcification and bursa. A 25-gauge needle was advanced to the site, and 40 mg of Kenalog mixed with bupivacaine 0.5% was injected. The patient tolerated the procedure well with no blood loss. Image saved. [facility] Medical History (Updated 01/13/25 @ 12:56 by Jeffery Nowak MD) CKD (chronic kidney disease) stage 3, GFR 30-59 ml/min 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 Anxiety Morbid obesity Other and unspecified hyperlipidemia Essential hypertension Atherosclerotic cardiovascular disease Pituitary microadenoma Vitamin D deficiency Graves disease Post-surgical hypothyroidism Osteoarthritis GERD (gastroesophageal reflux disease) Leukopenia Cervical radiculitis Lumbar radiculopathy Pernicious anemia Obstructive sleep apnea Raynaud's phenomenon Pituitary microadenoma 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 Mother Stroke Sister Diabetes mellitus Maternal Grandmother Unknown family medical history Brother Cancer Sister No problems noted. Brother No problems noted. Daughter Healthy female Social History Housing: Apartment Are you a primary manager long term care to a significant other at home: No Do you presently have visiting nurse or other home services: No Alcohol intake: current Alcohol intake frequency: holidays/special occasions only Patient Tobacco Use Status: Never used Tobacco e-Cigarette/Vaping Use: Never Used Second Hand Smoke Exposure: No service: No Current occupational status: disabled Cognitive needs: No Hearing needs: No Vision needs: Yes Female Reproductive History Menstrual Age of Menarche: 13 Physical Exam Vital Signs: Last Vital Signs Pulse 87 01/17/25 11:26 Resp 16 01/17/25 11:26 BP 126/88 01/17/25 11:26 Pulse Ox 97 01/17/25 11:26 Oxygen Delivery Method Room Air 01/17/25 11:26 BMI result Body Mass Index 43.5 Assessment & Plan Assessment & Plan (1) Right knee pain: Code(s): M25.561 - Pain in right knee Category: Medical Plan Plan Patient was informed and verbally consented to the use of an ambient scribe for clinic note documentation during this visit. 1. Suprapatellar Calcification - Plan: Follow-up in four weeks to assess response to the injection. Discussion Notes I discussed with the patient the procedure of injecting the right suprapatellar region to address the calcification identified as a potential pain source. The patient was informed about the use of ultrasound guidance and the medications involved, including Kenalog and bupivacaine. We agreed on a follow-up in four weeks to evaluate the effectiveness of the treatment. Patient Instructions - Follow up in four weeks to assess the response to the injection. Coding Level of Care Code Procedure Only Diagnoses Right knee pain M25.561
--- OUTSIDE RECORDS SUMMARY | 2025-01-17 12:30 | XMS_ITS | Clinical Summary ---
Author Organization [facility] ity Address [address] [place] [address] Care Team Providers Care Project Structural Engineer Name Role Phone Unavailable Primary Care Provider [...]
--- OUTSIDE RECORDS SUMMARY | 2025-01-17 12:30 | XMS_ITS | Encounter Summary ---
Author Organization [facility] Address [address] [place] [address] Phone Care Team Providers Care Youth Counselor Name Role Phone Kenroy Freeman NIRALI Primary Care Provider [phone] Encounter Details Date Type Department Care Team (Late st Contact Info) Description 08/18/2021 Documentation Only [facility] [address] [address] Jose Martin Mccall MD [address] [place] [address] Social History Tobacco Use Types [...] [facility] [address] [place] [address] Reginaldo Eagle MD [address] [place] [address] documented as of this encounter Visit Diagnoses Not on filedocumented in this encounter Care Teams Youth Counselor Relationship Specialty Start Date End Date Kenroy Freeman NP [facility] [place] [address] PCP - General Nurse Practitioner 11/15/19 documented as of this encounter
--- OUTSIDE RECORDS SUMMARY | 2025-01-17 12:30 | XMS_ITS | Encounter Summary ---
Author Organization [facility] Address [address] [place] [address] Phone Care Team Providers Care Epitaxial Reactor Technician Name Role Phone Kenroy Freeman NIRALI Primary Care Provider [phone] Encounter Details Date Type Department Care Team (Late st Contact Info) Description 05/13/2021 Documentation Only [facility] [address] [place] [address] Jose Martin Mccall MD [address] [place] [address] Social History Tobacco Use Types [...] [facility] [address] [place] [address] Reginaldo Eagle MD [address] [place] [address] documented as of this encounter Visit Diagnoses Not on filedocumented in this encounter Care Teams Epitaxial Reactor Technician Relationship Specialty Start Date End Date Kenroy Freeman NP [facility] [place] [address] PCP - General Nurse Practitioner 11/15/19 documented as of this encounter
--- OUTSIDE RECORDS SUMMARY | 2025-01-17 12:30 | XMS_ITS | Encounter Summary ---
Author Organization [facility] Address [address] [place] [address] Phone Care Team Providers Care District Medical Examiner Name Role Phone Kenroy Freeman NP Primary Care Provider [phone] Encounter Details Date Type Department Care Team (Late st Contact Info) Description 03/01/2021 Documentation Only [facility] [address] [place] [address] Falguni Whitney PA Social History Tobacco Use [...] [facility] [address] [place] [phone] Reginaldo Eagle MD [address] [place] [address] [place] [phone] documented as of this encounter Visit Diagnoses Not on filedocumented in this encounter Care Teams District Medical Examiner Relationship Specialty Start Date End Date Kenroy Freeman NP [address] [place] [address] PCP - General Nurse Practitioner 11/15/19 documented as of this encounter
--- OUTSIDE RECORDS SUMMARY | 2025-01-17 12:30 | XMS_ITS | Encounter Summary ---
Author Organization [facility] Address [address] [place] [address] Phone Care Team Providers Care Inspector Tester Sorter Name Role Phone Kenroy Freeman NIRALI Primary Care Provider [phone] Encounter Details Date Type Department Care Team (Late st Contact Info) Description 08/18/2021 Documentation Only [facility] [address] [place] [address] Jose Martin Mccall MD [address] [place] [address] Social History Tobacco Use Types [...] [facility] [address] [place] [address] Reginaldo Eagle MD [address] [place] [address] documented as of this encounter Visit Diagnoses Not on filedocumented in this encounter Care Teams Inspector Tester Sorter Relationship Specialty Start Date End Date Kenroy Freeman NP [facility] [place] [address] PCP - General Nurse Practitioner 11/15/19 documented as of this encounter
--- OUTSIDE RECORDS SUMMARY | 2025-01-17 12:31 | XMS_ITS | Clinical Summary ---
Author Organization [facility] Address [address] [address] Phone Care Team Providers Care Etl Tester Name Role Phone Reyes Beach MD Primary Care Provider [phone] Allergies Active Allergy Reactions Criticality Noted Date [...] topic Medical Devices Not on file Insurance [facility] ONE CARE MEDICARE REPLACEMENT [place] [id number] MEDICARE REPLACEMENT MEDICARE REPLACEMENT MEDICARE REPLACEMENT MEDICARE REPLACEMENT MEDICARE REPLACEMENT MEDICARE [place] [address] ONE CARE MEDICARE REPLACEMENT [facility] CARE MEDICARE REPLACEMENT Care Teams Etl Tester Relationship Specialty Start Date End Date Reyes Beach MD PCP - General Internal Medicine 08/22/18 Additional Source Comments The information contained in this document represents components of the legal health record. It is not the complete legal health record.[facility]
--- OUTSIDE RECORDS SUMMARY | 2025-01-17 12:31 | XMS_ITS | Encounter Summary ---
Author Organization [facility] Address [address] [facility] [address] [place] [address] Phone Care Team Providers Care First Aid Instructor Name Role Phone Reyes Beach MD Primary Care Provider [phone] Reason for Referral * MRI/CAT Scan - Closed Specialty Diagnoses / Procedures Referred By Katelynn feldman Referred To Contact Procedures CT Cardiac Outside (No Interpretation) Regino Bang MD Phone: tel: fax: mailto:[email or web address] Referral ID Status Reason Start Date Expiration Date Visits Re quested Visits Authorized [id number] Closed 09/11/2018 09/11/2019 1 1 Encounter Details Date Type Department Care Team (Late st Contact Info) Description 09/11/2018 Transcribe Orders [facility] [address] [place] [address] [email or web address] Social History Tobacco Use Types Packs/Day Years [...] OUTSIDE IMAGING W /OUT INTERPRETATION Final Result [facility] documented in this encounter Visit Diagnoses Not on filedocumented in this encounter Care Teams First Aid Instructor Relationship Specialty Start Date End Date Reyes Beach MD PCP - General Internal Medicine 08/22/18 documented as of this encounter Additional Source Comments The information contained in this document represents components of the legal health record. It is not the complete legal health record.[facility]
--- OUTSIDE RECORDS SUMMARY | 2025-01-17 12:31 | XMS_ITS | Encounter Summary ---
Author Organization [facility] Address [address] [place] [address] Phone Care Team Providers Care Commercial Art Instructor Name Role Phone Kenroy Freeman NIRALI Primary Care Provider [phone] Encounter Details Date Type Department Care Team (Late st Contact Info) Description 06/01/2023 Documentation Only [facility] [address] [place] [address] Deya Chowdhury [address] [place] [address] Social History Tobacco Use Types [...] Visit [facility] [address] [place] [address] Reginaldo Eagle MD [address] [place] [address] [place] [address] documented as of this encounter Visit Diagnoses Not on filedocumented in this encounter Care Teams Commercial Art Instructor Relationship Specialty Start Date End Date Kenroy Freeman NP [facility] [place] [address] PCP - General Nurse Practitioner 11/15/19 documented as of this encounter
--- OUTSIDE RECORDS SUMMARY | 2025-01-17 12:31 | XMS_ITS | Encounter Summary ---
Author Organization [facility] Address [address] [place] [address] Phone Care Team Providers Care Aircraft Engine Mechanic Name Role Phone Kenroy Freeman NIRALI Primary Care Provider [phone] Encounter Details Date Type Department Care Team (Late st Contact Info) Description 08/08/2022 Documentation Only [facility] [address] [place] [address] Tonya Wilson PA [address] [place] [address] Social History Tobacco Use Types [...] Visit [facility] [address] [place] [address] Reginaldo Eagle MD [address] [place] [address] documented as of this encounter Visit Diagnoses Not on filedocumented in this encounter Care Teams Aircraft Engine Mechanic Relationship Specialty Start Date End Date Kenroy Freeman NP [facility] [place] [address] PCP - General Nurse Practitioner 11/15/19 documented as of this encounter
--- OUTSIDE RECORDS SUMMARY | 2025-01-17 12:31 | XMS_ITS | Patient Health Record ---
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) Active confirmed Problem Pronation deformity of right foot (M21.6X1) Active confirmed Plan Of Treatment No Information Insurance Providers Payer Name Payer Address Payer Phone Subscriber Number Group Number Insured Name Patient Relationship to Insured Coverage Start Date Coverage End Date [facility] Claims [address] [place] [phone] [id number] Miriam Chacon Self - patient is the insured Medical (General) History Medical History History ICD Code Anxiety Depression High blood pressure raynauds disease Sciatica thyroid HIV Surgical History Surgery Date(Month/Year) tubes in ears tubal ligation 2000 shoulder surgery
--- OUTSIDE RECORDS SUMMARY | 2025-01-17 12:31 | XMS_ITS | Clinical Summary ---
Author Organization [facility], Address [address] [place] [address] [place] [address] Phone Care Team Providers Care Home Care Assistant Name Role Phone Kenroy Freeman NP Primary Care Provider [phone] Allergies Active Allergy Reactions Criticality Noted Date [...] Medical History Relation Comments Heart disease Father [place] Stroke Father Hypertension Mother Cancer Sibling 1 [...] Visit [facility] [place], [address] [place] [address] Reginaldo Eagle MD [address] [place] [address] Health Maintenance Due Date Last Done Comments [...] (6 to 49 Years) Discontinued 03/10/2015 Insurance [address] [place] [id number] [facility] One Care Dual SNP ([id number]) [place] [phone] [place] [id number] [address] [place] [id number] Care Teams Home Care Assistant Relationship Specialty Start Date End Date Kenroy Freeman NP [address] [place] [address] PCP - General Nurse Practitioner 11/15/19
--- OUTSIDE RECORDS SUMMARY | 2025-01-17 12:31 | XMS_ITS | Encounter Summary ---
Author Organization [facility] Address [address] [place] [address] Phone Care Team Providers Care Parts Washer Name Role Phone Kenroy Freeman NIRALI Primary Care Provider [phone] Encounter Details Date Type Department Care Team (Late st Contact Info) Description 08/18/2022 Documentation Only [facility] [address] [facility] [place] [address] Elana Chow[place]ou, [place] [address] [place] [address] Social History Tobacco Use Types [...] Visit [facility] [address] [facility] [address] [place] [address] Reginaldo Eagle MD [address] [facility] [address] [place] [address] documented as of this encounter Visit Diagnoses Not on filedocumented in this encounter Care Teams Parts Washer Relationship Specialty Start Date End Date Kenroy Freeman [place] [address] PCP - General Nurse Practitioner 11/15/19 documented as of this encounter
--- OUTSIDE RECORDS SUMMARY | 2025-01-17 12:31 | XMS_ITS | Encounter Summary ---
Author Organization [facility] Address [address] [facility] [address] [place] [address] Phone Care Team Providers Care Approver Name Role Phone Reyes Beach MD Primary Care Provider [phone] Encounter Details Date Type Department Care Team (Late st Contact Info) Description 04/20/2021 Procedure Pass [facility] MR Imaging, [place] [address] [place] [address] Social History Tobacco Use Types Packs/Day Years [...] documented as of this encounter Care Teams Approver Relationship Specialty Start Date End Date Reyes Beach MD PCP - General Internal Medicine 08/22/18 documented as of this encounter Additional Source Comments The information contained in this document represents components of the legal health record. It is not the complete legal health record.[facility]
--- OUTSIDE RECORDS SUMMARY | 2025-01-17 12:31 | XMS_ITS | Encounter Summary ---
Author Organization [facility] Address [address] [place] [address] Phone Care Team Providers Care Lead Painter Name Role Phone Kenroy Freeman NIRALI Primary Care Provider [phone] Encounter Details Date Type Department Care Team (Late st Contact Info) Description 09/27/2021 Documentation Only [facility] [address] [place] [address] Jose Martin Mccall MD [address] [facility] [place] [address] Social History Tobacco Use Types [...] Visit [facility] [address] [place] [address] Reginaldo Eagle MD [address] [facility] [place] [address] documented as of this encounter Visit Diagnoses Not on filedocumented in this encounter Care Teams Lead Painter Relationship Specialty Start Date End Date Kenroy Freeman NP [facility] [place] [address] PCP - General Nurse Practitioner 11/15/19 documented as of this encounter
--- OUTSIDE RECORDS SUMMARY | 2025-01-17 12:31 | XMS_ITS | Encounter Summary ---
Author Organization [facility] Address [address] [place] [address] Phone Care Team Providers Care Service Operations Manager Name Role Phone Kenroy Freeman NIRALI Primary Care Provider [phone] Encounter Details Date Type Department Care Team (Late st Contact Info) Description 10/13/2021 Documentation Only [facility] [address] [place] [address] Jose Martin Mccall MD [address] [place] [address] Social History Tobacco Use Types [...] [facility] [address] [place] [address] Reginaldo Eagle MD [address] [place] [address] documented as of this encounter Visit Diagnoses Not on filedocumented in this encounter Care Teams Service Operations Manager Relationship Specialty Start Date End Date Kenroy Freeman [place] [address] PCP - General Nurse Practitioner 11/15/19 documented as of this encounter
--- OUTSIDE RECORDS SUMMARY | 2025-01-17 12:31 | XMS_ITS | Encounter Summary ---
Author Organization [facility] Address [address] [place] [address] Phone Care Team Providers Care Undercover Agent Name Role Phone Kenroy Freeman NIRALI Primary Care Provider [phone] Encounter Details Date Type Department Care Team (Late st Contact Info) Description 09/19/2022 Documentation Only [facility] [address] [place] [place] [address] Tonya Wilson PA [address] [place] [address] Social History Tobacco Use Types [...] [facility] [address] [place] [address] Reginaldo Eagle MD [address] [facility] [place] [address] documented as of this encounter Visit Diagnoses Not on filedocumented in this encounter Care Teams Undercover Agent Relationship Specialty Start Date End Date Kenroy Freeman NP [facility] [place] [address] PCP - General Nurse Practitioner 11/15/19 documented as of this encounter
--- OUTSIDE RECORDS SUMMARY | 2025-01-17 12:31 | XMS_ITS | Encounter Summary ---
Author Organization [facility] Address [address] [place] [address] Phone Care Team Providers Care Oil Burner Servicer And Installer Name Role Phone Kenroy Freeman NIRALI Primary Care Provider [phone] Encounter Details Date Type Department Care Team (Late st Contact Info) Description 03/20/2024 Documentation Only [facility] [address] [place] [address] Reanna Goyal [address] [place] [address] Social History Tobacco Use Types [...] [facility] [address] [place] [address] Reginaldo Eagle MD [address] [facility] [place] [address] documented as of this encounter Visit Diagnoses Not on filedocumented in this encounter Care Teams Oil Burner Servicer And Installer Relationship Specialty Start Date End Date Kenroy Freeman NP [facility] [place] [address] PCP - General Nurse Practitioner 11/15/19 documented as of this encounter
--- OUTSIDE RECORDS SUMMARY | 2025-01-17 12:31 | XMS_ITS | Encounter Summary ---
Author Organization [facility] Address [address] [place] [address] Phone Care Team Providers Care Phosphoric Acid Supervisor Name Role Phone Kenroy Freeman NIRALI Primary Care Provider [phone] Encounter Details Date Type Department Care Team (Late st Contact Info) Description 06/02/2023 Documentation Only [facility] [address] [place] [address] Reanna Goyal [address] [place] [address] Social History Tobacco Use Types [...] Visit [facility] [address] [place] [address] Reginaldo Eagle MD [address] [address] [place] [address] documented as of this encounter Visit Diagnoses Not on filedocumented in this encounter Care Teams Phosphoric Acid Supervisor Relationship Specialty Start Date End Date Kenroy Freeman NP [facility] [place] [address] PCP - General Nurse Practitioner 11/15/19 documented as of this encounter
== END 2025-01-17 12:04 | disposition home or self-care (01) ==
LOC: HO.PMC 11:23
PROVIDERS: PCP Nurse Practitioner Family; Visit Provider Internal Medicine
DX: M25.561 Pain in right knee (principal)
CPT/HCPCS: 20611

== ENCOUNTER → 2025-01-17 11:22 | Outpatient (BNVA) | payer OTHER, SELFPAY | PROVIDERS: PCP Nurse Practitioner Family; Visit Provider Internal Medicine | DX: M25.561 Pain in right knee (principal) | CPT/HCPCS: 20611; J2795; J3301 ==

== ENCOUNTER → 2025-02-13 09:15 | Outpatient (BNV) | payer OTHER, SELFPAY | PROVIDERS: Absent Provider Internal Medicine Nephrology; PCP Nurse Practitioner Family; Visit Provider Radiology Body Imaging | DX: Z12.31 Encounter for screening mammogram for malignant neoplasm of breast (principal) | CPT/HCPCS: 77063; 77067 ==

== ENCOUNTER 2025-02-13 09:18 | Outpatient (REF) | payer OTHER, SELFPAY ==
--- NOTE | ~2025-02-13 | MM_ITS ---
EXAMINATION: MM SCREENING DIGITAL BREAST TOMOSYNTHESIS, BILATERAL CLINICAL INFORMATION: Screening. Asymptomatic. COMPARISON: Comparison made to multiple prior, most recent February 08, 2024, and most remote September 03, 2018. TECHNIQUE: Digital breast tomosynthesis is performed in mediolateral oblique and craniocaudal views along with computer-aided detection (CAD). Synthesized 2D images are generated from the tomosynthesis. FINDINGS: BREAST COMPOSITION: There are scattered areas of fibroglandular density. BILATERAL BREASTS: No significant masses, suspicious calcifications or other abnormalities are seen in either breast. MM/MM tomosynthesis screening BI IMPRESSION: BILATERAL BREASTS: Negative, no mammographic evidence of malignancy. Normal interval follow-up is recommended in 12 months. ASSESSMENT: BI-RADS: Category 1: Negative RECOMMENDATION: Routine annual mammography screening. FOLLOW-UP: 1 year F/U This examination should not preclude the clinical evaluation of a suspicious palpable abnormality. This patient's information was entered into a reminder system with a target due date for their next mammogram. Electronically signed by: Uma Mckee MD 02/15/2025 07:32 PM EDT
--- OUTSIDE RECORDS SUMMARY | 2025-02-13 10:36 | XMS_ITS | Encounter Summary ---
Author Organization [facility] Address [address] [facility] [address] [place] [address] Phone Care Team Providers Care Automotive Dismantler Name Role Phone Reyes Beach MD Primary Care Provider [phone] Encounter Details Date Type Department Care Team (Late st Contact Info) Description 04/20/2021 Procedure Pass [facility] MR Imaging, [place] [address] [place] [address] Social History Tobacco Use Types Packs/Day Years [...] documented as of this encounter Care Teams Automotive Dismantler Relationship Specialty Start Date End Date Reyes Beach MD PCP - General Internal Medicine 08/22/18 documented as of this encounter Additional Source Comments The information contained in this document represents components of the legal health record. It is not the complete legal health record.[facility]
--- OUTSIDE RECORDS SUMMARY | 2025-02-13 10:36 | XMS_ITS | Encounter Summary ---
Author Organization [facility] Address [address] [facility] [address] [place] [address] Phone Care Team Providers Care Pigment Weigher Name Role Phone Reyes Beach MD Primary Care Provider [phone] Reason for Referral * MRI/CAT Scan - Closed Specialty Diagnoses / Procedures Referred By Katelynn feldman Referred To Contact Procedures CT Cardiac Outside (No Interpretation) Regino Bang MD Phone: tel: fax: mailto:[email or web address] Referral ID Status Reason Start Date Expiration Date Visits Re quested Visits Authorized [id number] Closed 09/11/2018 09/11/2019 1 1 Encounter Details Date Type Department Care Team (Late st Contact Info) Description 09/11/2018 Transcribe Orders [facility] [address] [place] [address] Shen Marie [address] [place] [address] [email or web address] Social History Tobacco Use Types Packs/Day Years [...] on filedocumented in this encounter Care Teams Pigment Weigher Relationship Specialty Start Date End Date Reyes Beach MD [email or web address] PCP - General Internal Medicine 08/22/18 documented as of this encounter Additional Source Comments The information contained in this document represents components of the legal health record. It is not the complete legal health record.[facility]
--- OUTSIDE RECORDS SUMMARY | 2025-02-13 10:36 | XMS_ITS | Patient Health Record ---
Author Organization [facility] Address [address] [facility] [place] [address] Care Team Providers Care Upholsterer Outside Name Role Phone Kenroy Sánchez Primary Care Provider Unav ailable Black, Cherise Unavailable [phone] Allergies Allergen (clinical drug ingredient) Drug/Non Drug [...] Status Risk Notes Problem Acquired hallux valgus (62913426) Hallux valgus (acquired), left foot (M20.12) Active confirmed Problem Acquired hallux valgus (42976507) Hallux valgus (acquired), right foot (M20.11) Active confirmed Problem 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) Active confirmed Problem Pronation deformity of right foot (M21.6X1) Active confirmed Plan Of Treatment No Information Insurance Providers Payer Name Payer Address Payer Phone Subscriber Number Group Number Insured Name Patient Relationship to Insured Coverage Start Date Coverage End Date [facility] [employer] Claims [address] [place] [id number] Miriam Chacon Self - patient is the insured Medical (General) History Medical History History ICD Code Anxiety Depression High blood pressure raynauds disease Sciatica thyroid HIV Surgical History Surgery Date(Month/Year) tubes in ears tubal ligation 2000 shoulder surgery
--- OUTSIDE RECORDS SUMMARY | 2025-02-13 10:36 | XMS_ITS | Clinical Summary ---
Author Organization [facility] Address [address] [address] Phone Care Team Providers Care Emr Trainer Name Role Phone Reyes Beach MD Primary Care Provider +1- [phone] Allergies Active Allergy Reactions Criticality Noted Date [...] 01/15/2018, 12/26/2016, Additional history exists COVID-19 VACCINE (3 - 2024- season) 2024 08/31/2020, 08/10/2020 Adult Td,Tdap Booster 09/28/2027 09/27/2017 RSV VACCINE (1 - 1-dose 75+ series) 2040 SMOKING STATUS SCREENING (Once After 26 Yrs) [...] topic Medical Devices Not on file Insurance [facility] ONE CARE MEDICARE REPLACEMENT MEDICARE REPLACEMENT MEDICARE REPLACEMENT MEDICARE REPLACEMENT MEDICARE REPLACEMENT MEDICARE REPLACEMENT MEDICARE REPLACEMENT [facility] ONE CARE MEDICARE REPLACEMENT [facility] CARE MEDICARE REPLACEMENT Care Teams Emr Trainer Relationship Specialty Start Date End Date Reyes Beach MD PCP - General Internal Medicine 08/22/18 Additional Source Comments The information contained in this document represents components of the legal health record. It is not the complete legal health record.[facility]
[2025-02-13 11:23] LABS: Anion Gap 11 (12-20); Blood Urea Nitrogen 15 mg/dL (9-16); Calcium 9.1 mg/dL (8.4-10.2); Carbon Dioxide 30 mmol/L (22-29); Chloride 106 mmol/L (96-108); Estimated Glomerular Filt Rate 46; Potassium 3.5 mmol/L (3.3-5.1); Sodium 143 mmol/L (135-145)
[2025-02-13 11:51] LABS: Microalbum/Creatinine Ratio Ur 18.9 ug/mg cr (<30)
== END 2025-02-13 09:19 | disposition home or self-care (01) ==
LOC: HO.MAMMO 09:18
PROVIDERS: Absent Provider Internal Medicine Nephrology; PCP Nurse Practitioner Family; Visit Provider Nurse Practitioner Family
DX: Z12.31 Encounter for screening mammogram for malignant neoplasm of breast (principal); I12.9 Hypertensive chronic kidney disease with stage 1 through stage 4 chronic kidney disease, or unspecified chronic kidney disease; N18.31 Chronic kidney disease, stage 3a; R31.9 Hematuria, unspecified
CPT/HCPCS: 36415; 77063; 77067; 80048; 82043; 82570

== ENCOUNTER 2025-02-14 10:04 | Outpatient (AMB) | payer OTHER, SELFPAY ==
--- NOTE | 2025-02-14 10:13 | A.OFFVIS_ITS ---
Vital Signs 02/14/25 10:14 Height 5 ft 1 in Weight 230 lb BMI 43.5 BP 126/82 Blood Pressure Location Lt radial Position Sitting Respiration 16 Pulse 82 Pulse Source Pulse Oximeter Pulse Oximetry (%) 93 Oxygen Delivery Method Room Air Intake Visit Reasons: 1 Month Follow Up Crm Marketing Specialist Required: No Allergies amlodipine (AMLODIPINE) Allergy (Unknown, Verified 02/14/25 10:16) RASH cephalexin (From KEFLEX) Allergy (Unknown, Verified 02/14/25 10:16) RASH levofloxacin (From LEVAQUIN) Allergy (Unknown, Verified 02/14/25 10:16) RASH Medication List - Last Reconciled 02/14/25 by Sierra Billings LPN acetaminophen (Tylenol Extra Strength) 1,000 mg (2 x 500 mg) PO Q6H PRN albuterol sulfate 90 mcg/actuation (Ventolin HFA) 1 inh inhalation QID PRN alirocumab (Praluent Pen) 75 mg subcut Q2W 90 days aspirin (Adult Aspirin Regimen) 81 mg PO DAILY 90 days atorvastatin 80 mg PO DAILY yjupdwvji-fevcyblz-qjuzumm ala 50-200-25 mg (Biktarvy) 1 tab PO DAILY 30 days diclofenac sodium 50 mg PO Q12H PRN ezetimibe 10 mg PO DAILY levothyroxine (Synthroid) 88 mcg orally 100 mcg orally once a week; take 88mcg all other days of the week; levothyroxine (Synthroid) 100 mcg orally 100 mcg orally once a week; take 88mcg all other days of the week; lorazepam 1 mg PO BEDTIME PRN metoprolol succinate ER 100 mg PO BID nifedipine ER 30 mg PO DAILY spironolactone 50 mg PO BID HPI HPI 1 Month Follow Up: Details: History of Present Illness The patient is a 59-year-old female presenting with right knee pain and lower back pain. The right knee pain was initially addressed with a suprapatellar bursa injection last month, which resulted in significant improvement. Initially, the patient experienced minimal relief, but subsequently reported no pain in the right knee. The patient also reports lower back pain, for which an MRI is scheduled on February 19. The MRI will help in further evaluating the cause of the back pain, and a follow-up appointment is planned to discuss the results. In terms of preventative care, the patient is actively working on weight management by attending the gym with her boyfriend. She is also considering medication options for weight loss, pending insurance approval and lab results. Pain Description - Right knee pain: Initially minimal relief post-injection, now resolved - Lower back pain: MRI scheduled for further evaluation Physical Exam - Appears afebrile. - Alert and oriented. - Mood and affect appropriate. - Follows and participates in conversation appropriately. - Respiratory effort is unlabored. Pain Management - Analgesia: Suprapatellar injection provided significant relief for right knee pain - Activities of Daily Living: Patient is attending the gym for weight management [facility] Medical History (Updated 01/13/25 @ 12:56 by Jeffery Nowak MD) CKD (chronic kidney disease) stage 3, GFR 30-59 ml/min 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 Anxiety Morbid obesity Other and unspecified hyperlipidemia Essential hypertension Atherosclerotic cardiovascular disease Pituitary microadenoma Vitamin D deficiency Graves disease Post-surgical hypothyroidism Osteoarthritis GERD (gastroesophageal reflux disease) Leukopenia Cervical radiculitis Lumbar radiculopathy Pernicious anemia Obstructive sleep apnea Raynaud's phenomenon Pituitary microadenoma 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 Mother Stroke Sister Diabetes mellitus Maternal Grandmother Unknown family medical history Brother Cancer Sister No problems noted. Brother No problems noted. Daughter Healthy female Social History Housing: Apartment Are you a primary managed care liaison to a significant other at home: No Do you presently have visiting nurse or other home services: No Alcohol intake: current Alcohol intake frequency: holidays/special occasions only Patient Tobacco Use Status: Never used Tobacco e-Cigarette/Vaping Use: Never Used Second Hand Smoke Exposure: No service: No Current occupational status: disabled Cognitive needs: No Hearing needs: No Vision needs: Yes Female Reproductive History Menstrual Age of Menarche: 13 Physical Exam Vital Signs: Last Vital Signs Pulse 82 02/14/25 10:14 Resp 16 02/14/25 10:14 BP 126/82 02/14/25 10:14 Pulse Ox 93 02/14/25 10:14 Oxygen Delivery Method Room Air 02/14/25 10:14 BMI result Body Mass Index 43.5 Assessment & Plan Assessment & Plan (1) Right knee pain: Code(s): M25.561 - Pain in right knee Category: Medical (2) Lumbar radiculopathy: Code(s): M54.16 - Radiculopathy, lumbar region Category: Medical Plan Plan Patient was informed and verbally consented to the use of an ambient scribe for clinic note documentation during this visit. 1. Right Knee Pain - Follow-up after suprapatellar injection showed significant improvement with no current pain reported. 2. Lower Back Pain - MRI scheduled for February 19 to evaluate the cause of pain. - Follow-up appointment planned post-MRI to discuss results and further management. 3. Weight Management - Patient is attending the gym and considering medication options pending insurance approval. Discussion Notes I discussed with the patient the positive response to the suprapatellar injection for her right knee pain, noting the absence of pain currently. We also reviewed the plan for her lower back pain, including the scheduled MRI on February 19 and the subsequent follow-up to discuss the results. Additionally, we talked about her weight management efforts, including gym attendance and potential medication options pending insurance approval. Patient Instructions - Continue attending the gym for weight management. - Follow up after the MRI on February 19 to discuss results. - Await insurance approval for potential weight management medication. Coding Level of Care Code Est Pt Level 4 (83103) Diagnoses Right knee pain M25.561 Lumbar radiculopathy M54.16
[2025-02-14 10:14] VITALS: BP 126/82; PULSE 82; RESP 16; O2SAT 93; BMI 43.5
--- OUTSIDE RECORDS SUMMARY | 2025-02-14 11:23 | XMS_ITS | Clinical Summary ---
Author Organization [facility] Address [address] [address] Phone Care Team Providers Care Senior Java J2Ee Developer Name Role Phone Reyes Beach MD Primary Care Provider +1- [phone] Allergies Active Allergy Reactions Criticality Noted Date [...] topic Medical Devices Not on file Insurance [facility] ONE CARE MEDICARE REPLACEMENT MEDICARE REPLACEMENT MEDICARE REPLACEMENT MEDICARE REPLACEMENT MEDICARE REPLACEMENT MEDICARE REPLACEMENT MEDICARE REPLACEMENT [facility] ONE CARE MEDICARE REPLACEMENT [facility] CARE MEDICARE REPLACEMENT Care Teams Senior Java J2Ee Developer Relationship Specialty Start Date End Date Reyes Beach MD PCP - General Internal Medicine 08/22/18 Additional Source Comments The information contained in this document represents components of the legal health record. It is not the complete legal health record.[facility]
--- OUTSIDE RECORDS SUMMARY | 2025-02-14 11:24 | XMS_ITS | Encounter Summary ---
Author Organization [facility] Address [address] [employer] [facility] [address] [place] [address] Phone Care Team Providers Care Heel Seater Name Role Phone Reyes Beach MD Primary Care Provider +1- [phone] Encounter Details Date Type Department Care Team (Late st Contact Info) Description 04/20/2021 Procedure Pass [facility] MR Imaging, [place] [address] [place] [address] Social History Tobacco Use Types Packs/Day Years [...] documented as of this encounter Care Teams Heel Seater Relationship Specialty Start Date End Date Reyes Beach MD PCP - General Internal Medicine 08/22/18 documented as of this encounter Additional Source Comments The information contained in this document represents components of the legal health record. It is not the complete legal health record.[facility]
--- OUTSIDE RECORDS SUMMARY | 2025-02-14 11:24 | XMS_ITS | Patient Health Record ---
[facility] Address [address] 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) Active confirmed Problem Pronation deformity of right foot (M21.6X1) Active confirmed Plan Of Treatment No Information Insurance Providers Payer Name Payer Address Payer Phone Subscriber Number Group Number Insured Name Patient Relationship to Insured Coverage Start Date Coverage End Date [facility] [employer] Claims [address] [place] [address] [id number] Miriam Chacon Self - patient is the insured Medical (General) History Medical History History ICD Code Anxiety Depression High blood pressure raynauds disease Sciatica thyroid HIV Surgical History Surgery Date(Month/Year) tubes in ears tubal ligation 2000 shoulder surgery
--- OUTSIDE RECORDS SUMMARY | 2025-02-14 11:24 | XMS_ITS | Data Portability ---
Author Organization [facility], [facility] Address [address] [place] [address] Care Team Providers Care Leather Craftsman Name Role Phone KATHY TEIXEIRA Primary Care Provider HIM CCA OTHER Assessment Encounter Date Assessment Date Assessment LastModified by Organization Details LastModified Time 07/27/2023 07/27/2023 As noted, we chuck e called to see this patient regarding concerns of weakness. Evaluation in the field was performed by my hospital admitting clerk colleague, as noted above, I provided real-time [...] We discussed the need to seek care urgently/emergentl y in the setting of any new or worsening serious symptoms, particularly worsening atigue, weakness, chest pain, shob, confusion, fever [email or web address] Not available 07/27/2023 18:18:17 12/19/2024 12/19/2024 I provided real -time medical direction via phone for this encounter and was available for additional phone-based assistance as needed. I have reviewed and agree with the Assessment and Plan as documented by the Holiday Detector Operator. Patient given the opportunity to ask questions. Our service contacted for an assessment of: right shoulder pain As per above, patient states she recently had a kidney stone on the right and noticed flank/shoulder pain. Also c/o subacute right shoulder pain with decreased ROM. Denies CP, SOB, ALBRECHT. Denies trauma, falls. Per hospital admitting clerk on the scene, VSS, AF. Please read the hospital admitting clerk note for their exam findings. Impression: Right shoulder pain with limited ROM 2nd to pain Plan: Asked her to recall PCP for an appointment. She would benefit from an in-person exam to decide next steps in management. May benefit from further diagnostic testing with an MRI to r/o RCT. Would also benefit from PT. Can take Motrin which may be of improved benefit over Tylenol for pain. Suggested alternating these 2 OTC's over the next several days. Allergies: Reviewed PCP f/u: We discussed the diagnostic uncertainty of home visits and the risk associated with this. In this case, the patient and I felt this to be an acceptable and reasonable amount of risk given the benefit of avoiding an ED visit. We discussed the need to seek care urgently/emergentl y in the setting of any new or worsening serious symptoms, particularly fever chills lightheadedness altered mental status [email or web address] Not available 12/19/2024 12:35:10 Plan of Treatment Reminders Order Date Submit Date Provider Last Modified By Organization Details Last Modified Time Details Appointments None recorded. Lab rapid SARS CoV 2 Ag, QL IA, respiratory specimen 2023 024 [facility], [address] [place] [address], [id number] 4 20:47:12 rapid flu (A+B) 2023 024 [facility], [address] [place] [address], [id number] 4 20:47:49 culture, urine 2023 024 [email or web address] [employer] [facility], [address] [place] [address], [facility] B, [place], [address], 4 09:51:23 urinalysis, dipstick 2023 024 [facility], [address] [place] [address], [id number] 4 15:29:52 rapid flu (A+B) 2021 022 [email or web address] [facility], [address] [place] [address], [id number] 21:38:31 rapid SARS CoV 2 Ag, QL IA, respiratory specimen 2021 [email or web address] [facility], [address] [place] [address], [id number] 21:38:31 rapid strep group A, throat 2021 [email or web address] [facility], [address] [place] [address], [id number] 21:38:31 Referral None recorded. Procedures None recorded. Surgeries None recorded. Imaging None recorded. Medication Orders Paxlovid 300 mg (150 mg x 2)-100 mg tablets in a dose pack 2023 [id number], [address], [place], [id number], 4 14:35:21 Bactrim DS 800 mg-160 mg tablet 2023 024 [facility][id number], [address], [place], [id number], 4 13:03:33 potassium chloride ER 20 mEq tablet,exte nded release 2021 [email or web address] Not available 21:38:31 Patient TargetsNo targets [...] ts at testd irect ory.q uestd iagno [email or web address] Not Available [facility] [address], [address], 10/23/2023 15:48:24 10/23/19 24 10/23/2023 SPECI MEN ID NOTIF ICATI ON ANIBAL OSMAN SECON D ID comment: Speci men label s must inclu de two forms of patie nt ID. Only one uniqu e ident ifier was prese nt on the sampl e(s). The testi ng you reque sted will be proce ssed; howev er, going forwa rd pleas e provi de two ident ifier s as requi red by the Colle shahzad [facility]o logis ts (CAP) . Not Available [facility]- [address], [place], [address], 10/23/2023 15:48:25 10/23/19 24 10/23/2023 PATIE NT ID APPRO EDISON TIQ DOCUM ENTAT ION comment Ident ifica tion of test requi sitio n and/o r speci men(s ) was quest ionab le. The below named indiv idual provi ded this burton ed patie nt ident ifica tion. Not Available [facility], [place], [address], 10/23/2023 15:48:25 10/23/19 24 10/23/2023 PATIE NT ID APPRO EDISON TIQ DOCUM ENTAT ION contact FAX Not Available [facility] [address] [place] [address], [place], [address], 10/23/2023 15:48:25 10/23/19 24 10/23/2023 PATIE NT ID APPRO EDISON TIQ DOCUM ENTAT ION tests affected 395 Not Available [facility], [place], [address], 10/23/2023 15:48:25 10/23/19 24 10/23/2023 CULTU RE, URINE , ROUTI NE culture, urine, routine SEE NOTE CULTU RE, URINE , ROUTI NE Micro Numbe r: [id number] Test Statu s: Final Speci men [...] repor t has been faxed to the [employer] wing: [place]ed to: [phone] on: 10/19 18:29 NO COLLE CTION DATE RECEI ANJANA. WE HAVE USED THE DATE THE SPECI MEN WAS RECEI ANJANA BY THIS LABOR ATORY THE COLLE CTION DATE. IF THIS IS INCOR RECT, PLEAS E CONTA CT CLIEN T SERVI JUANY. PHONE NUMBE R: [phone] Not Available [facility] [address] [place] [address] B, [place], [address], 10/23/2023 15:48:26 01/14/20 22 01/13/2022 rapid strep group A, throa t Strep negati ve Not Available [facility] [address] [place] [address], [id number] 01/13/2022 21:37:04 01/14/20 22 01/13/2022 rapid SARS CoV 2 Ag, QL IA, respi rator y speci men rapid SARS CoV 2 Ag, QL IA, respiratory specimen negati ve Not Available [facility] ed [address] [place] [address], [id number] 01/13/2022 21:37:00 01/14/20 22 01/13/2022 rapid flu (A+B) Flu negati ve Not Available [facility] ed [address] [place] [address], [id number] 01/13/2022 21:36:59 Result Notes None recorded. Medical Equipment None Reported. Allergies Allergen ID Allergen Name Allergen Category Reaction Reaction Severity Criticality Documentation Date Start Date Code Code System Note Provider Name and Address Organization Details Recorded Time 32833 amlodipin e medicatio n Not available Not available Not available 12/19/2024 32778 RxNorm Not Available [facility] 5 11:06:56 8589 cephalexi n medicatio n Not available Not available Not available 02/13/2024 2231 RxNorm Not Available [facility] 4 03:45:22 8590 levofloxa lora medicatio n Not available Not available Not available 02/13/2024 46555 RxNorm Not Available [facility] - production 4 03:45:22 Medications Name Sig [...] ONCE DIRECTED BY [facility] active Not Available Not Available No [...] blood by Pulse oximetry Heart rate Systolic And Diastolic Provider Name and Address Organization Details Last Updated DateTime 4 18 /min 96.9 [degF] 479838. 2 g 100 % 100 % 70 /min 172/104 mm[Hg] Not Available [employer] 4 18:07:31 Date Recorded Respiratory rate Oxygen saturation Oxygen saturation in Arterial blood by Pulse oximetry Heart rate Body temperature Systolic And Diastolic Provider Name and Address Organization Details Last Updated DateTime 4 18 /min 99 % 99 % 82 /min 97.4 [degF] 132/82 mm[Hg] Not Available [employer] 4 12:54:21 Date Recorded Oxygen saturation Oxygen saturation in Arterial blood by Pulse oximetry Heart rate Respiratory rate Body temperature Systolic And Diastolic Provider Name and Address Organization Details Last Updated DateTime 4 95 % 95 % 110 /min 20 /min 98.1 [degF] 130/90 mm[Hg] Not Available [employer] 4 14:16:32 Date Recorded Respiratory rate Heart rate Oxygen saturation Oxygen saturation in Arterial blood by Pulse oximetry Body temperature Systolic And Diastolic Provider Name and Address Organization Details Last Updated DateTime 5 16 /min 67 /min 96 % 96 % 98.5 [degF] 146/90 mm[Hg] Not Available [employer] 5 12:24:51 Date Recorded Oxygen saturation Oxygen saturation in Arterial blood by Pulse oximetry Body weight Body height Body temperature Respiratory rate Heart rate Body temperature Oxygen saturation Oxygen saturation in Arterial blood by Pulse oximetry Heart rate Body height Provider Name and Address Organization Details Last Updated DateTime 2 96 % 96 % 21755.2 4 g 154.94 cm 97.4 [degF] 20 /min 130 /min 97.4 [degF] 96 % 96 % 130 /min 154.94 cm Not Available [employer] 2 17:44:08 Date Recorded Body weight Respiratory rate Systolic And Diastolic Systolic And Diastolic Provider Name and Address Organization Details Last Updated DateTime 01/13/2022 49641.24 g 20 /min 128/84 mm[Hg] 128/84 mm[Hg] Not Available [employer] 2 17:44:08 Social History None recorded. Functional Status None recorded. Mental Status None recorded. Family History Nothing Reported. Medical History No medical history recorded. Gynecological HistoryNo gynecological history recorded. Obstetrics History GPAL:G 0 P 0 0 0 0 Past Encounters Encounter ID Performer Location Encounter Start Date Encounter Closed Date Diagnosis/Indication Diagnosis SNOMED-CT Code Diagnosis ICD10 Code Diagnosis IMO Codes Diagnosis Note [id number] Ray Goyal MD [facility] [address] [place] [phone] 01/13/2022 15:51:31 01/17/2022 16:23:27 Cough 09104011 R05.9 COVID, Flu, strep negative. No s/s of pneumonia or asthma exacerbati on. O2 sat normal. Supportive care. Tachycardia 0993395 R00. [address]-T wave changes. HR came down to 103 Hypokalemia 48931893 E87 .6 Repleted [place] 40 meq of K [id number] Kiki Michelle, MD [facility] [address] [place] [phone] 07/27/2023 18:07:29 07/28/2023 12:52:04 Weakness present 075443744 M62.81 [id number] Ray Goyal MD [facility] [address] [place] [phone] 10/14/2023 12:50:48 10/15/2023 21:01:10 Dysuria 44593630 R30.0 Recently treated with Macrobid (treated five days prior), now with worsening pain. Amenable to trying antibiotic prior to obtaining culture. Discussed red flag signs for which to seek higher level of care. [id number] Ray Goyal MD [facility] [address] [place] [phone] 11/30/2023 14:02:19 12/01/2023 13:01:16 COVID-19 037128489 U07.1 COVID positive. Flu negative. s/p vaccinatio [...] if symptoms worsen overnight will suzi [address]. [id number] Carole Mendes MD [facility] [address] [phone] 12/19/2024 12:24:48 12/19/2024 14:06:16 Pain of right shoulder region 0727766192 M25.511 [id number] Health Concerns Section Related Observation LastModified by Organization Detai ls LastModified Time None Recorded Concern Status LastModified by Organization Details LastModified Time None Recorded Advance Directives Directive None Recorded Payers Insurance Date Sequence Insurance Name Policy Number Policy Lala Covered Member ID Lala Member ID Guarantor Name 06/11/2023 1 [facility] - DOS PRIOR TO 2022 - DUAL ELIGIBLE (MEDICARE REPLACEMENT/ADV ANTAGE - HMO) Miriam Chacon [id number] Miriam Gallardo [employer] 12/19/2024 1 [facility] - DOS ON OR AFTER 2022 - DUAL ELIGIBLE - PRISON OPTIONS AND ONE CARE (MEDICARE REPLACEMENT/ADV ANTAGE - HMO) Miriam Chacon [id number] Miriam Chacon Notes Date Note Type Note Provider Name and Address Organization Details Recorded Time 01/13/2022 text/html ROS as noted in the HPI HPI: Referral taken over the phone by members summer child caregiver. Member with cold like symptoms since Monday. Member c/o cough, congestion, fatigued and unable to sleep. Home covid test negative. CM unsure if member has phlegm, fever/chills or any hx of asthma/copd. Per CM member safe and stable to wait for an [facility] visit. ..................... ..................... ..................... ..................... ..................... ..................... ............... CRC Nursing Assessment: Comments: CRC RN did not require any additional information to process this visit. ..................... ..................... ..................... ..................... ..................... ..................... ............... Holiday Detector Operator Note: Sent to a call for a [...] sample obtained; Urine dip: Results uploaded to [employer]; [facility] orders 12 lead ECG, Rapid Strep test, and POC CMP; Rapid strep: neg; blood sample obtained via venous blood draw; CMP results: potassium low; ECG results: uploaded to [employer]. [facility] orders Potassium 40meq PO; Potassium administered. Red flags discussed. Pt has no further questions. ..................... ..................... ..................... ..................... ..................... ..................... ............... Disposition: Fulfilled Ray Goyal MD [address] [facility],[address], [place], [address], [facility] [employer] 01/13/2022 21:38:55 07/27/2023 text/html [facility] Nurse Triage Notes (Loulou Pimentel): Chief Complaints: Weakness/Lethargy PMH: Hypertension, Other Comments: PMH: Hypothyroid, HIV Member was recently seen in the ED for bradycardia in the 50's. No interventions taken related to bradycardia. Member. Feeling weakness and fatigue over the last 2 days. Denies chest pain, shortness of breath or dizziness. Prescribed metoprolol daily for HTN. Unable reach Critical Care Rn today. HR 50's today. Reviewed RED flags. Instructed member to call 911 for worsening signs/symptoms. ..................... ..................... ..................... ..................... ..................... ..................... ............... Holiday Detector Operator Note From Renato Bangura: Pt co fatigue [...] metoprolol . Lungs clear no edema. [facility] contacted and advised pt to follow up with power tong operator and pcp. Pt education on signs indicating the ER. ..................... ..................... ..................... ..................... ..................... ..................... ............... Disposition: Fulfilled Kiki Martinez MD [address] [facility],[address], [place], [address], [employer] 07/27/2023 18:47:44 10/14/2023 text/html ROS as noted in the HPI CRC Nurse Triage Notes (Ruma Garay): Reason [...] fever/chills. Member would like to be evaluated. Holiday Detector Operator POC Test Results from Deyanira Guy - ALS Urine Dipstick (12:54:34) Urine leukocytes: 125 WING Urine nitrites: - NIT Urine urobilinogen: 0.2 URO Urine protein: - PRO Urine pH: 5.0 pH Urine blood: ++ BLO Urine specific gravity: 1.010 SG Urine ketones: - KET Urine bilirubin: - NELLA Urine glucose: - GLU Attachments uploaded as part of this test result can be found under Documents section. ..................... ..................... ..................... ..................... ..................... ..................... ............... Holiday Detector Operator Note From Deyanira Guy: Pt with two [...] up with pcp Monday, red flags reviewed. Holiday Detector Operator Allergies: Cephalexin, Levofloxacin ..................... ..................... ..................... ..................... ..................... ..................... ............... Disposition: Fulfilled Ray Goyal MD [address] [place] [address],[address], [place], [address], [employer] 10/14/2023 13:34:41 11/30/2023 text/html ROS as noted in the [facility] CRC Nurse Triage Notes (Loulou Pimentel): Reason For Request: Pt reporting cold like symptoms > unable to eat in 2 days>issues with her lower back>Legs and arms on the LEFT side are going numb Chief Complaints: Cough, Weakness/Lethargy, Pain PMH: Hypertension, HIV Allergies: Cephalexin, Levofloxacin Comments: [employer] Supervisor verified the member's name//address and phone number. Cold symptoms since Monday. + cough, rhinnorhea, and fatigue. Denies fever. Exposed to boyfriend who was sick. Decreased appetite x2 days. Drinking fluids. c/o lower abdominal pain and increased bowel movement frequency. No diarrhea. Education provided on the response time and the member was advised to monitor reported s/s and seek emergency treatment if needed. Holiday Detector Operator Organization Information for [employer] Legal Name: [employer] Address: [address] [place] [address], Media Relations Intern: Mark Velazquez MD IA No.: [id number] Holiday Detector Operator POC Test Results from Frydryk, [place] - ALS Rapid COVID antigen (15:27:55) COVID: + Rapid influenza antigen (15:27:56) Flu: - Urine Dipstick (15:36:39) Urine leukocytes: NR Urine nitrites: NR Urine urobilinogen: NR Urine protein: NR Urine pH: NR Urine blood: NR Urine specific gravity: NR Urine ketones: NR Urine bilirubin: NR Urine glucose: NR ..................... ..................... ..................... ..................... ..................... ..................... ............... Holiday Detector Operator Note From AgustinaObinna dickens: Dispatched to the call address for a [...] -dizziness -nvd -abd pain -blurred vision. [facility] contacted and ordered flu and covid test with U/A. Covid test was positive negative on flu and urine showed positive ketones and blood. [facility] ordered the patient Paxlovid to her pharmacy [...] times are approx.report completed by jah chun. ..................... ..................... ..................... ..................... ..................... ..................... ............... Disposition: Fulfilled Ray Goyal MD [address] [place] [address],[address], [place], [phone], [employer] 11/30/2023 16:52:34 12/19/2024 text/html CRC Nurse Triage Notes (Grazyna Valladares): Reason For Request: Patient has Right shoulder pain, out of nowhere for a day. Denies: Worst Headache of life New onset of vision loss Sudden onset -unilateral weakness/gait disturbance Fall with head strike and altered LOC New onset of Slurred speech or difficulty finding words Sudden Mental status changes Head pain with fever chills and neck pain Seizure activity Head pain not relieved by medication greater than 8 hours Head pain greater than 8 hours -unrelated to falls or injury Head pain with nausea vomiting Dizziness with positional change Sensitive to light Chief Complaints: Extremity Pain, Urinary Symptoms PMH: Hypertension, HIV/AIDS, Hyperlipidemia PMH Reviewed at 12/19/2024 - : Allergies Reviewed at 12/19/2024:06 Comments: 59 y.o female complains of Extremity Pain Patient making referral symptoms started 2 days ago low back pain a day ago but has gone away thinks it may have been kidney stones has hx of them right shoulder blade pain 09/24 not radiating complains of a headache on the right side in occipital area denies any lightheadedness or dizziness patient states she feels warm but hasn't taken her temperature denies any shortness of breath but says when she sneezes she has chest tightness. She has been Tylenol and pain cream with little to no relief. denies any unusual exercise or repetitive movement in the last few days. requesting insted visit. Kidney issues with stones and hematuria and takes a low dose aspirin daily. I provided information on the mobile health provider response time and advised the patient and/or caregiver to monitor reported signs and symptoms. I discussed the warning signs of when to seek emergency care. ..................... ..................... ..................... ..................... ..................... ..................... ............... Holiday Detector Operator Note From Ambrose Michaels: SC12 dispatched to the address listed above for the report of a female constitution party with shoulder pain. Arrival on scene, patient was found opening front door for [facility] ambulating without assistance to a seated position [...] movement or rotation of right shoulder. Patient right arm, CMS intact. Patient denies any trauma, former surgeries or injuries of right shoulder, denies fever/chills, denies history of blood clots, denies blood thinners. Patient denies any chest pain, shortness of breath, or nausea/vomiting/diarr hea. Patient also reports history of kidney stones and believes that she passed a kidney stone 2 days ago which pain subsided since, patient denies any current urinary symptoms. Patient reports that she has only been taking Tylenol for pain management with minor relief, patient denies any allergies to NSAID. Patient vital signs obtained as noted. [facility] consulted, advised that patient should follow up with PCP for evaluation and imaging to obtain a diagnosis. In addition, patient advised she can Ibuprofen as well for pain management. Red flags discussed with patient, advised to call 911 if her condition worsens. SC12 Clear. ..................... ..................... ..................... ..................... ..................... ..................... ............... [facility] Consulted: Carole Mendes ..................... ..................... ..................... ..................... ..................... ..................... ............... Disposition: Fulfilled Carole Mendes MD [address] [place] [address],[address] [facility], [place], [phone], [employer] 12/19/2024 13:11:09 OBGyn Episode No OBEpisode recorded.
--- OUTSIDE RECORDS SUMMARY | 2025-02-14 11:24 | XMS_ITS | Encounter Summary ---
Author Organization [facility] Address [address] [facility] [address] [place] [address] Phone Care Team Providers Care Livestock Auctioneer Name Role Phone [place] MD Primary Care Provider [phone] Reason for Referral * MRI/CAT Scan - Closed Specialty Diagnoses / Procedures Referred By Katelynn feldman Referred To Contact Procedures CT Cardiac Outside (No Interpretation) Regino Bang MD Phone: tel: fax: [email or web address] Referral ID Status Reason Start Date Expiration Date Visits Re quested Visits Authorized [id number] Closed 09/11/2018 09/11/2019 1 1 Encounter Details Date Type Department Care Team (Late st Contact Info) Description 09/11/2018 Transcribe Orders [facility] [address] [place] [phone] [place] [address] [place] [id number] [email or web address] Social History Tobacco Use Types Packs/Day [...] on filedocumented in this encounter Care Teams Livestock Auctioneer Relationship Specialty Start Date End Date Re[place] MD [email or web address] PCP - General Internal Medicine 08/22/18 documented as of this encounter Additional Source Comments The information contained in this document represents components of the legal health record. It is not the complete legal health record.[facility]
== END 2025-02-14 10:32 | disposition home or self-care (01) ==
LOC: HO.PMC 10:05
PROVIDERS: PCP Nurse Practitioner Family; Visit Provider Internal Medicine
DX: M25.561 Pain in right knee (principal); M54.16 Radiculopathy, lumbar region
CPT/HCPCS: 99213

== ENCOUNTER → 2025-02-14 10:04 | Outpatient (BNVA) | payer OTHER, SELFPAY | PROVIDERS: PCP Nurse Practitioner Family; Visit Provider Internal Medicine | DX: M25.561 Pain in right knee (principal); M54.16 Radiculopathy, lumbar region | CPT/HCPCS: 99212 ==

== ENCOUNTER → 2025-02-19 10:31 | Outpatient (BNV) | payer OTHER, SELFPAY | PROVIDERS: PCP Nurse Practitioner Family; Visit Provider Radiology Vascular & Interventional Radiology | DX: M47.26 Other spondylosis with radiculopathy, lumbar region (principal) | CPT/HCPCS: 72148 ==

== ENCOUNTER 2025-02-19 10:34 | Outpatient (REF) | payer OTHER, SELFPAY ==
--- NOTE | ~2025-02-19 | MR_ITS ---
CLINICAL HISTORY: M54.16 - Radiculopathy, lumbar region MR lumbar spine without gadolinium Comparison: None Findings: Normal alignment. Straightening of the normal lumbar lordosis. No acute fracture or pathologic bone lesion. Cauda equina and conus medullaris within normal limits. Paraspinous musculature intact. The visualized retroperitoneum is unremarkable. Individual levels: L1-L2: Unremarkable. L2-L3: Unremarkable. L3-L4: Small posterior disc protrusion. No significant central canal stenosis or neural foraminal narrowing. L4-L5: Jjrqu-yb-rsgxqqiq posterior disc protrusion with facet hypertrophy. Moderate bilateral neural foraminal narrowing, aude-svyquoa-iaqb-right. No central canal stenosis. L5-S1: Moderate left eccentric disc protrusion with facet hypertrophy. Severe left neural foraminal narrowing. Moderate to severe right neural foraminal narrowing. No central canal stenosis. Impression: Degenerative changes most pronounced within the lower lumbar spine. This document has been electronically signed by: Jone Huntley MD on 02/19/2025 12:18:53
--- OUTSIDE RECORDS SUMMARY | 2025-02-19 12:20 | XMS_ITS | Encounter Summary ---
Author Organization [facility] Address [address] [facility] [address] [place] [address] Phone Care Team Providers Care Public Health Registrar Name Role Phone Reyes Beach MD Primary Care Provider [phone]- [phone] Encounter Details Date Type Department Care Team (Late st Contact Info) Description 04/20/2021 Procedure Pass [facility] MR Imaging, [place] [address] [place] [address] Social History Tobacco Use Types Packs/Day Years [...] documented as of this encounter Care Teams Public Health Registrar Relationship Specialty Start Date End Date Reyes Beach MD PCP - General Internal Medicine 08/22/18 documented as of this encounter Additional Source Comments The information contained in this document represents components of the legal health record. It is not the complete legal health record.[facility]
--- OUTSIDE RECORDS SUMMARY | 2025-02-19 12:21 | XMS_ITS | Encounter Summary ---
Author Organization [facility] Address [address] [facility] [address] [place] [address] Phone Care Team Providers Care Hospitality Team Member Name Role Phone Reyes Beach MD Primary Care Provider [phone]- [phone] Reason for Referral * MRI/CAT Scan - Closed Specialty Diagnoses / Procedures Referred By Katelynn feldman Referred To Contact Procedures CT Cardiac Outside (No Interpretation) Regino Bang MD Phone: tel: fax: mailto:[email or web address] Referral ID Status Reason Start Date Expiration Date Visits Re quested Visits Authorized [id number] Closed 09/11/2018 09/11/2019 1 1 Encounter Details Date Type Department Care Team (Late st Contact Info) Description 09/11/2018 Transcribe Orders [facility] [address] [place] [address] [place] [address] [place] [address] [email or web address] Social History Tobacco Use Types Packs/Day [...] on filedocumented in this encounter Care Teams Hospitality Team Member Relationship Specialty Start Date End Date Reyes Beach MD [email or web address] PCP - General Internal Medicine 08/22/18 documented as of this encounter Additional Source Comments The information contained in this document represents components of the legal health record. It is not the complete legal health record.[facility]
--- OUTSIDE RECORDS SUMMARY | 2025-02-19 12:22 | XMS_ITS | Patient Health Record ---
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) Active confirmed Problem Pronation deformity of right foot (M21.6X1) Active confirmed Plan Of Treatment No Information Insurance Providers Payer Name Payer Address Payer Phone Subscriber Number Group Number Insured Name Patient Relationship to Insured Coverage Start Date Coverage End Date [facility] [employer] Claims [address] [place] [address] [id number] Miriam Chacon Self - patient is the insured Medical (General) History Medical History History ICD Code Anxiety Depression High blood pressure raynauds disease Sciatica thyroid HIV Surgical History Surgery Date(Month/Year) tubes in ears tubal ligation 2000 shoulder surgery
--- OUTSIDE RECORDS SUMMARY | 2025-02-19 12:22 | XMS_ITS | Data Portability ---
Author Organization [employer] [facility] Address [address] [place] [address] Care Team Providers Care Salesperson Corsets Name Role Phone KATHY TEIXEIRA Primary Care Provider [phone] HIM CCA OTHER Assessment Encounter Date Assessment Date Assessment LastModified by Organization Details LastModified Time 07/27/2023 07/27/2023 As noted, we chuck e called to see this patient regarding concerns of weakness. Evaluation in the field was performed by my rattan worker colleague, as noted above, I provided real-time [...] Assessment and Plan as documented by the Job Placement Specialist. Patient given the opportunity to ask questions. Our service contacted for an assessment of: right shoulder pain As per above, patient states she recently had a kidney stone on the right and noticed flank/shoulder pain. Also c/o subacute right shoulder pain with decreased ROM. Denies CP, SOB, ALBRECHT. Denies trauma, falls. Per rattan worker on the scene, VSS, AF. Please read the rattan worker note for their exam findings. Impression: Right [...] Ag, QL IA, respiratory specimen 2023 024 [facility], [address] [place] [address], [id number] 4 20:47:12 rapid flu (A+B) 2023 024 [facility], [address] [place] [address], [id number] 4 20:47:49 culture, urine 2023 024 [email or web address] [facility], [address] [place] [address], [facility] B, [place], [address], 4 09:51:23 urinalysis, dipstick 2023 024 [facility], [address] [place] [address], [id number] 4 15:29:52 rapid flu (A+B) 2021 022 [email or web address] [facility], [address] [place] [address], [id number] 21:38:31 rapid SARS CoV 2 Ag, QL IA, respiratory specimen 2021 [email or web address] [facility], [address] [place] [address], [id number] 21:38:31 rapid strep group A, throat 2021 [email or web address] [facility], [address] [place] [address], [id number] 21:38:31 Referral None recorded. Procedures None recorded. Surgeries None recorded. Imaging None recorded. Medication Orders Paxlovid 300 mg (150 mg x 2)-100 mg tablets in a dose pack 2023 [id number], [address] [place], [place], [id number], 4 14:35:21 Bactrim DS 800 mg-160 mg tablet 2023 024 [facility] #97955, [address] [place], [place], [id number], 4 13:03:33 potassium chloride ER 20 mEq [...] ts at testd irect ory.q uestd iagno [email or web address] .[employer] Not Available [facility] [address], [address], 10/23/2023 15:48:24 10/23/19 24 10/23/2023 SPECI MEN [...] ts (CAP) . Not Available [facility]- [address], [place], [address], 10/23/2023 15:48:25 10/23/19 24 10/23/2023 PATIE NT ID APPRO EDISON TIQ DOCUM ENTAT ION comment Ident ifica tion of test requi sitio n and/o r speci men(s ) was quest ionab le. The below named indiv idual provi ded this burton ed patie nt ident ifica tion. Not Available [facility], [place], [address], 10/23/2023 15:48:25 10/23/19 24 10/23/2023 PATIE NT ID APPRO EDISON TIQ DOCUM ENTAT ION contact FAX Not Available [facility] [address] [place] [address], [place], [address], 10/23/2023 15:48:25 10/23/19 24 10/23/2023 PATIE NT ID APPRO EDISON TIQ DOCUM ENTAT ION tests affected 395 Not Available [facility], [place], [address], 10/23/2023 15:48:25 10/23/19 24 10/23/2023 CULTU RE, URINE , ROUTI NE culture, urine, routine SEE NOTE CULTU RE, URINE , ROUTI NE Micro Numbe r: [id number] Test Statu s: Final Speci men [...] repor t has been faxed to the [facility] wing: Faxed to: [phone] on: 10/19 18:29 NO COLLE CTION DATE RECEI ANJANA. WE HAVE USED THE DATE THE SPECI MEN WAS RECEI ANJANA BY THIS LABOR ATORY THE COLLE CTION DATE. IF THIS IS INCOR RECT, PLEAS E CONTA CT CLIEN T SERVI JUANY. PHONE NUMBE R: [phone] Not Available [facility] [address] [place] [address] B, [place], [address], 10/23/2023 15:48:26 01/14/20 22 01/13/2022 rapid strep group A, throa t Strep negati ve Not Available [facility] [address] [place] [address], [id number] 01/13/2022 21:37:04 01/14/20 22 01/13/2022 rapid SARS CoV 2 Ag, QL IA, respi rator y speci men rapid SARS CoV 2 Ag, QL IA, respiratory specimen negati ve Not Available [facility] ed [address] [place] [address], [id number] 01/13/2022 21:37:00 01/14/20 22 01/13/2022 rapid flu (A+B) Flu negati ve Not Available [facility] ed [address] [place] [address], [phone] 01/13/2022 21:36:59 Result Notes None recorded. Medical Equipment None Reported. Allergies Allergen ID Allergen Name Allergen Category Reaction Reaction Severity Criticality Documentation Date Start Date Code Code System Note Provider Name and Address Organization Details Recorded Time 55355 amlodipin e medicatio n Not available Not available Not available 12/19/2024 45282 RxNorm Not Available [facility] 5 11:06:56 8589 cephalexi n medicatio n Not available Not available Not available 02/13/2024 2231 RxNorm Not Available [facility] 4 03:45:22 8590 levofloxa lora medicatio n Not available Not available Not available 02/13/2024 56097 RxNorm Not Available [facility] 4 03:45:22 Medications Name Sig [...] ONCE DIRECTED BY [facility] active Not Available Not Available No [...] Updated DateTime 4 18 /min 96.9 [degF] 214131. 2 g 100 % 100 % 70 /min 172/104 mm[Hg] Not Available [facility] 4 18:07:31 Date Recorded Respiratory rate Oxygen saturation Oxygen saturation in Arterial blood by Pulse oximetry Heart rate Body temperature Systolic And Diastolic Provider Name and Address Organization Details Last Updated DateTime 4 18 /min 99 % 99 % 82 /min 97.4 [degF] 132/82 mm[Hg] Not Available [facility] 4 12:54:21 Date Recorded Oxygen saturation Oxygen saturation in Arterial blood by Pulse oximetry Heart rate Respiratory rate Body temperature Systolic And Diastolic Provider Name and Address Organization Details Last Updated DateTime 4 95 % 95 % 110 /min 20 /min 98.1 [degF] 130/90 mm[Hg] Not Available [facility] 4 14:16:32 Date Recorded Respiratory rate Heart rate Oxygen saturation Oxygen saturation in Arterial blood by Pulse oximetry Body temperature Systolic And Diastolic Provider Name and Address Organization Details Last Updated DateTime 5 16 /min 67 /min 96 % 96 % 98.5 [degF] 146/90 mm[Hg] Not Available [facility] 5 12:24:51 Date Recorded Oxygen saturation Oxygen saturation in Arterial blood by Pulse oximetry Body weight Body height Body temperature Respiratory rate Heart rate Body temperature Oxygen saturation Oxygen saturation in Arterial blood by Pulse oximetry Heart rate Body height Provider Name and Address Organization Details Last Updated DateTime 2 96 % 96 % 45926.2 4 g 154.94 cm 97.4 [degF] 20 /min 130 /min 97.4 [degF] 96 % 96 % 130 /min 154.94 cm Not Available [employer] 2 17:44:08 Date Recorded Body weight Respiratory rate Systolic And Diastolic Systolic And Diastolic Provider Name and Address Organization Details Last Updated DateTime 01/13/2022 50316.24 g 20 /min 128/84 mm[Hg] 128/84 mm[Hg] Not Available [facility] [employer] 2 17:44:08 Social History None recorded. Functional [...] [id number] Ray Goyal MD [facility] [address] [place] [phone] 01/13/2022 15:51:31 01/17/2022 16:23:27 Cough 89810803 R05.9 COVID, Flu, strep negative. No s/s of pneumonia or asthma exacerbati on. O2 sat normal. Supportive care. Tachycardia 8982421 R00. [address]-T wave changes. HR came down to 103 Hypokalemia 80755939 E87 .6 Repleted [place] 40 [place] [id number] Kiki Michelle, MD [facility] [address] [place] [phone] 07/27/2023 18:07:29 07/28/2023 12:52:04 Weakness present 664217297 M62.81 33325 Ray Goyal MD [facility] [address] [place] [phone] 10/14/2023 12:50:48 10/15/2023 21:01:10 Dysuria 79808519 R30.0 Recently treated with Macrobid (treated five days prior), now with worsening pain. Amenable to trying antibiotic prior to obtaining culture. Discussed red flag signs for which to seek higher level of care. [id number] Ray Goyal MD [facility] [address] [place] [phone] 11/30/2023 14:02:19 12/01/2023 13:01:16 COVID-19 443220996 U07.1 COVID positive. Flu negative. s/p vaccinatio [...] if symptoms worsen overnight will suzi [address]. [address] Carole Mendes MD [facility] [address] [address] 12/19/2024 12:24:48 12/19/2024 14:06:16 Pain of right shoulder region 0603175254 M25.511 [id number] Health Concerns Section Related Observation LastModified by Organization Detai ls LastModified Time None Recorded Concern Status LastModified by Organization Details LastModified Time None Recorded Advance Directives Directive None Recorded Payers Insurance Date Sequence Insurance Name Policy Number Policy Lala Covered Member ID Lala Member ID Guarantor Name 06/11/2023 1 [facility] - [facility] PRIOR TO 2022 - DUAL ELIGIBLE (MEDICARE REPLACEMENT/ADV ANTAGE - HMO) Miriam Chacon [id number] Miriam Gallardo Maxxshahzad 12/19/2024 1 [facility] - DOS ON OR AFTER 2022 - DUAL ELIGIBLE - SKILLED NURSING OPTIONS AND ONE CARE (MEDICARE REPLACEMENT/ADV ANTAGE - HMO) Miriam Chacon [id number] Miriam Chacon Notes Date Note Type Note Provider Name and Address Organization Details Recorded Time 01/13/2022 text/html ROS as noted in the HPI HPI: Referral taken over the phone by members prompt care rn. Member with cold like symptoms since Monday. Member c/o cough, congestion, fatigued and unable to sleep. Home covid test negative. CM unsure if member has phlegm, fever/chills or any hx of asthma/copd. Per CM member safe and stable to wait for an [facility] visit. ..................... ..................... ..................... ..................... ..................... ..................... ............... CRC Nursing Assessment: Comments: CRC RN did not require any additional information to process this visit. ..................... ..................... ..................... ..................... ..................... ..................... ............... Job Placement Specialist Note: Sent to a call for a [...] sample obtained; Urine dip: Results uploaded to [facility]; [facility] orders 12 lead ECG, Rapid Strep test, and POC CMP; Rapid strep: neg; blood sample obtained via venous blood draw; CMP results: potassium low; ECG results: uploaded to [facility]. [facility] orders Potassium 40meq PO; Potassium administered. Red flags discussed. Pt has no further questions. ..................... ..................... ..................... ..................... ..................... ..................... ............... Disposition: Fulfilled Ray Goyal MD [address] [facility],[address], [place], [phone], [facility] [employer] 01/13/2022 21:38:55 07/27/2023 text/html [facility] Nurse Triage Notes (Loulou Pimentel): Chief Complaints: Weakness/Lethargy PMH: Hypertension, Other Comments: PMH: Hypothyroid, HIV Member was recently seen in the ED for bradycardia in the 50's. No interventions taken related to bradycardia. Member. Feeling weakness and fatigue over the last 2 days. Denies chest pain, shortness of breath or dizziness. Prescribed metoprolol daily for HTN. Unable reach Rn Anesthetist today. HR 50's today. Reviewed RED flags. Instructed member to call 911 for worsening signs/symptoms. ..................... ..................... ..................... ..................... ..................... ..................... ............... Job Placement Specialist Note From Renato Bangura: Pt co fatigue [...] RX metoprolol . Lungs clear no edema. [facility] contacted and advised pt to follow up with barrel rifler broach and pcp. Pt education on signs indicating the ER. ..................... ..................... ..................... ..................... ..................... ..................... ............... Disposition: Fulfilled Kiki Martinez MD [address] [facility],[address], [place], [phone], [employer] 07/27/2023 18:47:44 10/14/2023 text/html ROS as noted [...] fever/chills. Member would like to be evaluated. Job Placement Specialist POC Test Results from Deyanira Guy - [...] ..................... ..................... ..................... ..................... ..................... ..................... ............... Job Placement Specialist Note From Deyanira Guy: Pt with two [...] up with pcp Monday, red flags reviewed. Job Placement Specialist Allergies: Cephalexin, Levofloxacin ..................... ..................... ..................... ..................... ..................... ..................... ............... Disposition: Fulfilled Ray Goyal MD [address] [place] [address],[address], [place], [phone], [employer] 10/14/2023 13:34:41 11/30/2023 text/html ROS as noted in the [facility] CRC Nurse Triage Notes (Loulou Pimentel): Reason For Request: Pt reporting cold like symptoms > unable to eat in 2 days>issues with her lower back>Legs and arms on the LEFT side are going numb Chief Complaints: Cough, Weakness/Lethargy, Pain PMH: Hypertension, HIV Allergies: Cephalexin, Levofloxacin Comments: Retail Service Technician verified the member's name//address and phone number. Cold symptoms since Monday. + cough, rhinnorhea, and fatigue. Denies fever. Exposed to boyfriend who was sick. Decreased appetite x2 days. Drinking fluids. c/o lower abdominal pain and increased bowel movement frequency. No diarrhea. Education provided on the response time and the member was advised to monitor reported s/s and seek emergency treatment if needed. Job Placement Specialist Organization Information for [employer] Name: [employer] Address: [address] [place] [address], Supervisor Cloth Winding: Mark Velazquez MD [place] No.: [id number] Job Placement Specialist POC Test Results from [place]dry[place], [place] - ALS Rapid COVID antigen (15:27:55) COVID: + Rapid influenza antigen (15:27:56) Flu: - Urine Dipstick (15:36:39) Urine leukocytes: NR Urine nitrites: NR Urine urobilinogen: NR Urine protein: NR Urine pH: NR Urine blood: NR Urine specific gravity: NR Urine ketones: NR Urine bilirubin: NR Urine glucose: NR ..................... ..................... ..................... ..................... ..................... ..................... ............... Job Placement Specialist Note From AgustinaObinna dickens: Dispatched to the [...] -sob -dizziness -nvd -abd pain -blurred vision. [facility] contacted and ordered flu and covid test with U/A. Covid test was positive negative on flu and urine showed positive ketones and blood. [facility] ordered the patient [...] ..................... ............... Disposition: Fulfilled Ray Goyal MD [address] [place] [address],[address], [place], [address], [employer] 11/30/2023 16:52:34 12/19/2024 text/html CRC Nurse Triage [...] ..................... ..................... ..................... ..................... ..................... ..................... ............... 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 Arrival on scene, patient was found opening front door for [facility] ambulating without assistance to a seated position [...] NSAID. Patient vital signs obtained as noted. [facility] consulted, advised that patient should follow up with PCP for evaluation and imaging to obtain a diagnosis. In addition, patient advised she can Ibuprofen as well for pain management. Red flags discussed with patient, advised to call 911 if her condition worsens. SC12 Clear. ..................... ..................... ..................... ..................... ..................... ..................... ............... [facility] Consulted: Carole Mendes ..................... ..................... ..................... ..................... ..................... ..................... ............... Disposition: Fulfilled Carole Mendes MD [address] [place] [address],[address] [facility], [place], [phone], [facility] [employer] 12/19/2024 13:11:09 OBGyn Episode No OBEpisode recorded.
== END 2025-02-19 10:35 | disposition home or self-care (01) ==
LOC: HO.MRI 10:34
PROVIDERS: PCP Nurse Practitioner Family; Visit Provider Internal Medicine
DX: M54.16 Radiculopathy, lumbar region (principal)
CPT/HCPCS: 72148

== ENCOUNTER 2025-03-10 11:16 | Outpatient (AMB) | payer OTHER, SELFPAY ==
--- NOTE | 2025-03-10 11:18 | MHC.OFFVIS ---
Vital Signs 03/10/25 11:20 Height 5 ft 1 in Weight 233 lb BMI 44.0 BP 144/79 H Blood Pressure Location Lt radial Position Sitting Respiration 16 Pulse 101 H Pulse Source Pulse Oximeter Pulse Oximetry (%) 99 Oxygen Delivery Method Room Air Intake Visit Reasons: FOLLOW UP Seismic Computer Required: No Allergies amlodipine (AMLODIPINE) Allergy (Unknown, Verified 03/10/25 11:21) RASH cephalexin (From KEFLEX) Allergy (Unknown, Verified 03/10/25 11:21) RASH levofloxacin (From LEVAQUIN) Allergy (Unknown, Verified 03/10/25 11:21) RASH Medication List - Last Reconciled 03/10/25 by Sierra Billings LPN acetaminophen (Tylenol Extra Strength) 1,000 mg (2 x 500 mg) PO Q6H PRN albuterol sulfate 90 mcg/actuation (Ventolin HFA) 1 inh inhalation QID PRN alirocumab (Praluent Pen) 75 mg subcut Q2W 90 days aspirin (Adult Aspirin Regimen) 81 mg PO DAILY 90 days atorvastatin 80 mg PO DAILY jhqgrehvw-uzflvxyz-yowhntz ala 50-200-25 mg (Biktarvy) 1 tab PO DAILY 30 days diclofenac sodium 50 mg PO Q12H PRN ezetimibe 10 mg PO DAILY levothyroxine (Synthroid) 88 mcg orally 100 mcg orally once a week; take 88mcg all other days of the week; levothyroxine (Synthroid) 100 mcg orally 100 mcg orally once a week; take 88mcg all other days of the week; lorazepam 1 mg PO BEDTIME PRN metoprolol succinate ER 100 mg PO BID nifedipine ER 30 mg PO DAILY spironolactone 50 mg PO BID HPI HPI FOLLOW UP: Details: History of Present Illness The patient is a 59-year-old individual presenting with follow-up for MRI results and management of back pain. The patient reports pain primarily on the right side of the lower back, which does not radiate down the leg. The pain is exacerbated by lateral bending, particularly to the right, and is associated with degenerative changes in the lumbar spine. MRI findings indicate degenerative disc disease with disc bulging at L4-L5 and S1, and significant facet arthritis at the left L5-S1 facet joint. The patient has previously tried steroid injections, which provided only temporary relief, and is interested in exploring longer-term management options. She is also trying to lose weight and steroids may be detrimental to weight goals. Pain Description - Location: Right side of the lower back - Radiation: No radiation down the leg - Exacerbating factors: Lateral bending, especially to the right - Quality: Pull type sensation with some pain Physical Exam - Musculoskeletal: Lateral bending reproduces lower back pain, more pronounced on right side bending. - Musculoskeletal: Lumbar extension and flexion do not reproduce pain. Results - MRI: Degenerative disc disease with disc bulging at L4-L5 and S1, significant facet arthritis at left L5-S1 facet joint. Modic type changes at L4, L5 and S1 endplates. Pain Management - Affect: Pain impacts daily activities, patient seeks long-term relief options. - Analgesia: Previous injections provided temporary relief, considering vertebral nerve ablation. - Activities of Daily Living: Pain affects ability to perform certain movements, such as bending. [facility] Medical History (Updated 03/11/25 @ 15:19 by Jeffery Nowak MD) CKD (chronic kidney disease) stage 3, GFR 30-59 ml/min 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 Anxiety Morbid obesity Other and unspecified hyperlipidemia Essential hypertension Atherosclerotic cardiovascular disease Pituitary microadenoma Vitamin D deficiency Graves disease Post-surgical hypothyroidism Osteoarthritis GERD (gastroesophageal reflux disease) Leukopenia Cervical radiculitis Lumbar radiculopathy Pernicious anemia Obstructive sleep apnea Raynaud's phenomenon Pituitary microadenoma 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 Mother Stroke Sister Diabetes mellitus Maternal Grandmother Unknown family medical history Brother Cancer Sister No problems noted. Brother No problems noted. Daughter Healthy female Social History Housing: Apartment Are you a primary resident care associate to a significant other at home: No Do you presently have visiting nurse or other home services: No Alcohol intake: current Alcohol intake frequency: holidays/special occasions only Patient Tobacco Use Status: Never used Tobacco e-Cigarette/Vaping Use: Never Used Second Hand Smoke Exposure: No service: No Current occupational status: disabled Cognitive needs: No Hearing needs: No Vision needs: Yes Female Reproductive History Menstrual Age of Menarche: 13 Physical Exam Vital Signs: Last Vital Signs Pulse 101 H 03/10/25 11:20 Resp 16 03/10/25 11:20 BP 144/79 H 03/10/25 11:20 Pulse Ox 99 03/10/25 11:20 Oxygen Delivery Method Room Air 03/10/25 11:20 BMI result Body Mass Index 44.0 Assessment & Plan Assessment & Plan (1) Vertebrogenic low back pain: Code(s): M54.51 - Vertebrogenic low back pain Category: Medical Plan Plan Patient was informed and verbally consented to the use of an ambient scribe for clinic note documentation during this visit. 1. Vertebrogenic Back Pain - Considered low dose cortisone injection for temporary relief. Patient not interested as previous injections were only temporary in relief. - Discussed basivertebral nerve ablation for longer-term relief, provided brochure for patient to review. Patient to consider options and inform if they wish to proceed with ablation. - Will target L4, L5, S1 for BVNA if patient decided to proceed. 2. Facet Joint Arthritis - Previous injections provided temporary relief, patient interested in avoiding corticosteroids due to weight concerns. - Vertebral nerve ablation discussed as a potential option for long-term management. 3. - Discussed vertebral nerve ablation as a treatment option, explained procedure and recovery process. - Patient to review provided information and decide on proceeding with the procedure. Discussion Notes I discussed the MRI findings with the patient, highlighting the degenerative disc disease, vertebral endplate changes and facet joint arthritis contributing to the back pain. We explored treatment options, including a low dose cortisone injection for temporary relief and basivertebral nerve ablation for longer-term management. I provided a brochure on the ablation procedure, explaining the process, recovery, and potential benefits. The patient was advised to consider the options and inform us if they wish to proceed with the ablation, at which point we will seek prior authorization. Patient Instructions - Review the brochure on basivertebral nerve ablation and consider if this option is suitable for you. - Inform the clinic if you decide to proceed with the ablation procedure. - Continue with any prescribed exercises and stretching to manage back pain. Coding Level of Care Code Est Pt Level 4 (40381) Diagnoses Vertebrogenic low back pain M54.51
[2025-03-10 11:20] VITALS: BP 144/79; PULSE 101; RESP 16; O2SAT 99; BMI 44.0
--- OUTSIDE RECORDS SUMMARY | 2025-03-10 14:40 | XMS_ITS | Clinical Summary ---
Author Organization [facility] ity Address [address] [place] [address] Care Team Providers Care Eclectic Doctor Name Role Phone Unavailable Primary Care Provider [...] Depression Screening 04/17/2024 COVID-19 Vaccine (1 - 2024-2 6 season) 2024 Influenza Vaccine (#1) 2024 RSV [...]
--- OUTSIDE RECORDS SUMMARY | 2025-03-10 14:40 | XMS_ITS | Encounter Summary ---
Author Organization [facility] Address [address] [place] [address] Phone Care Team Providers Care Account Resolution Expert Name Role Phone Kenroy Freeman NIRALI Primary Care Provider [phone] Encounter Details Date Type Department Care Team (Late st Contact Info) Description 09/27/2021 Documentation Only [facility] [address] [address] Jose Martin Mccall MD [address] [place] [address] [place] [address] Social History Tobacco Use Types [...] Care Team (Late st Contact Info) Description 05/06/2025 10:00 AM EST Office Visit [facility] [address] [place] [address] Reginaldo Eagle MD [address] [place] [address] documented as of this encounter Visit Diagnoses Not on filedocumented in this encounter Care Teams Account Resolution Expert Relationship Specialty Start Date End Date Kenroy Freeman NP [facility] [place] [address] PCP - General Nurse Practitioner 11/15/19 documented as of this encounter
--- OUTSIDE RECORDS SUMMARY | 2025-03-10 14:40 | XMS_ITS | Encounter Summary ---
Author Organization [facility] Address [address] [place] [address] Phone Care Team Providers Care Arc Welder Apprentice Name Role Phone Kenroy Freeman NIRALI Primary Care Provider [phone] Encounter Details Date Type Department Care Team (Late st Contact Info) Description 10/13/2021 Documentation Only [facility] [address] [place] [address] Jose Martin Mccall MD [address] [place] [address] [place] [address] Social History Tobacco Use Types [...] [facility] [address] [place] [address] Reginaldo Eagle MD [address] [facility] [place] [address] documented as of this encounter Visit Diagnoses Not on filedocumented in this encounter Care Teams Arc Welder Apprentice Relationship Specialty Start Date End Date Kenroy Freeman NP [facility] [place] [address] PCP - General Nurse Practitioner 11/15/19 documented as of this encounter
--- OUTSIDE RECORDS SUMMARY | 2025-03-10 14:40 | XMS_ITS | Encounter Summary ---
Author Organization [facility] Address [address] [place] [address] Phone Care Team Providers Care Claims Service Adjustor Name Role Phone Kenroy Freeman NIRALI Primary Care Provider Encounter Details Date Type Department Care Team (Late st Contact Info) Description 08/18/2022 Documentation Only [facility] [address] [place] [address] [place], [place] [address] [place] [address] Social History Tobacco Use Types [...] [facility] [address] [place] [place] [address] Reginaldo Eagle MD [address] [facility] [place] [address] documented as of this encounter Visit Diagnoses Not on filedocumented in this encounter Care Teams Claims Service Adjustor Relationship Specialty Start Date End Date Kenroy Freeman NP [facility] [place] [address] PCP - General Nurse Practitioner 11/15/19 documented as of this encounter
--- OUTSIDE RECORDS SUMMARY | 2025-03-10 14:40 | XMS_ITS | Encounter Summary ---
Author Organization [facility] Address [address] [place] [address] Phone Care Team Providers Care Nocturnist Name Role Phone Kenroy Freeman NIRALI Primary Care Provider [phone] Encounter Details Date Type Department Care Team (Late st Contact Info) Description 08/08/2022 Documentation Only [facility] [address] [place] [address] Tonya Wilson PA [address] [place] [address] [place] [address] Social History Tobacco Use Types [...] Visit [facility] [address] [place] [address] Reginaldo Eagle MD [address] [facility] [place] [address] documented as of this encounter Visit Diagnoses Not on filedocumented in this encounter Care Teams Nocturnist Relationship Specialty Start Date End Date Kenroy Freeman NP [facility] [place] [address] PCP - General Nurse Practitioner 11/15/19 documented as of this encounter
--- OUTSIDE RECORDS SUMMARY | 2025-03-10 14:41 | XMS_ITS | Encounter Summary ---
Author Organization [facility] Address [address] [place] [address] Phone Care Team Providers Care Emergency Medical Dispatcher Name Role Phone Kenroy Freeman NIRALI Primary Care Provider [phone] Encounter Details Date Type Department Care Team (Late st Contact Info) Description 08/18/2021 Documentation Only [facility] [address] [place] [address] Jose Martin Mccall MD [address] [place] [address] [place] [address] Social History Tobacco Use Types [...] [facility] [address] [place] [address] Reginaldo Eagle MD [address] [facility] [place] [address] documented as of this encounter Visit Diagnoses Not on filedocumented in this encounter Care Teams Emergency Medical Dispatcher Relationship Specialty Start Date End Date Kenroy Freeman NP [facility] [place] [address] PCP - General Nurse Practitioner 11/15/19 documented as of this encounter
--- OUTSIDE RECORDS SUMMARY | 2025-03-10 14:41 | XMS_ITS | Encounter Summary ---
Author Organization [facility] Address [address] [place] [address] Phone Care Team Providers Care Mold Filler Plastic Dolls Name Role Phone Kenroy Freeman NP Primary Care Provider [phone] Encounter Details Date Type Department Care Team (Late st Contact Info) Description 03/01/2021 Documentation Only [facility] [address] [place] [address] Falguni Whitney PA Social History Tobacco Use [...] [facility] [address] [place] [phone] Reginaldo Eagle MD [address] [place] [address] [place] [phone] documented as of this encounter Visit Diagnoses Not on filedocumented in this encounter Care Teams Mold Filler Plastic Dolls Relationship Specialty Start Date End Date Kenroy Freeman NP [facility] [place] [address] PCP - General Nurse Practitioner 11/15/19 documented as of this encounter
--- OUTSIDE RECORDS SUMMARY | 2025-03-10 14:41 | XMS_ITS | Encounter Summary ---
Author Organization [facility] Address [address] [place] [address] Phone Care Team Providers Care Fraud Investigator Name Role Phone Kenroy Freeman NIRALI Primary Care Provider [phone] Encounter Details Date Type Department Care Team (Late st Contact Info) Description 09/19/2022 Documentation Only [facility] [address] [place] [address] Tonya Wilson PA [address] [place] [address] [place] [address] Social History Tobacco Use Types [...] Visit [facility] [address] [place] [address] Reginaldo Eagle MD [address] [facility] [place] [address] documented as of this encounter Visit Diagnoses Not on filedocumented in this encounter Care Teams Fraud Investigator Relationship Specialty Start Date End Date Kenroy Freeman NP [employer] [place] [address] PCP - General Nurse Practitioner 11/15/19 documented as of this encounter
--- OUTSIDE RECORDS SUMMARY | 2025-03-10 14:41 | XMS_ITS | Encounter Summary ---
Author Organization [facility] Address [address] [facility] [address] [place] [address] Phone Care Team Providers Care Commissioner Of Internal Revenue Name Role Phone Reyes Beach MD Primary Care Provider [phone] Encounter Details Date Type Department Care Team (Late st Contact Info) Description 04/20/2021 Procedure Pass [facility], [place] [address] [place] [address] Social History Tobacco Use Types Packs/Day Years [...] documented as of this encounter Care Teams Commissioner Of Internal Revenue Relationship Specialty Start Date End Date Reyes [place] MD PCP - General Internal Medicine 08/22/18 documented as of this encounter Additional Source Comments The information contained in this document represents components of the legal health record. It is not the complete legal health record.[facility]
--- OUTSIDE RECORDS SUMMARY | 2025-03-10 14:41 | XMS_ITS | Encounter Summary ---
Author Organization [facility] Address [address] [place] [address] Phone Care Team Providers Care Detective Narcotics And Vice Name Role Phone Kenroy Freeman NIRALI Primary Care Provider [phone] Encounter Details Date Type Department Care Team (Late st Contact Info) Description 06/01/2023 Documentation Only [facility] [address] [place] [address] Deya Chowdhury [address] [place] [address] Social History Tobacco Use Types [...] [facility] [address] [place] [address] Reginaldo Eagle MD [address] [facility] [place] [address] documented as of this encounter Visit Diagnoses Not on filedocumented in this encounter Care Teams Detective Narcotics And Vice Relationship Specialty Start Date End Date Kenroy Freeman NP [facility] [place] [address] PCP - General Nurse Practitioner 11/15/19 documented as of this encounter
--- OUTSIDE RECORDS SUMMARY | 2025-03-10 14:41 | XMS_ITS | Encounter Summary ---
Author Organization [facility] Address [address] [place] [address] Phone Care Team Providers Care Electrical Drafter Name Role Phone Kenroy Freeman NIRALI Primary Care Provider [phone] Encounter Details Date Type Department Care Team (Late st Contact Info) Description 06/02/2023 Documentation Only [facility] [address] [place] [address] Reanna Goyal [address] [place] [address] Social History Tobacco Use Types [...] [facility] [address] [address] Reginaldo Eagle MD [address] [facility] [place] [address] documented as of this encounter Visit Diagnoses Not on filedocumented in this encounter Care Teams Electrical Drafter Relationship Specialty Start Date End Date Kenroy Freeman NP [facility] [place] [address] PCP - General Nurse Practitioner 11/15/19 documented as of this encounter
--- OUTSIDE RECORDS SUMMARY | 2025-03-10 14:41 | XMS_ITS | Clinical Summary ---
Author Organization [facility] Address [address] [address] Phone Care Team Providers Care Grades 1 6 Tutor Name Role Phone Reyes [place] MD Primary Care Provider [phone] Allergies Active Allergy Reactions Criticality Noted Date [...] topic Medical Devices Not on file Insurance [facility] ONE CARE MEDICARE REPLACEMENT MEDICARE REPLACEMENT MEDICARE REPLACEMENT MEDICARE REPLACEMENT MEDICARE REPLACEMENT MEDICARE REPLACEMENT MEDICARE REPLACEMENT [facility] ONE CARE MEDICARE REPLACEMENT [facility] CARE MEDICARE REPLACEMENT Care Teams Grades 1 6 Tutor Relationship Specialty Start Date End Date Reyes [place] MD PCP - General Internal Medicine 08/22/18 Additional Source Comments The information contained in this document represents components of the legal health record. It is not the complete legal health record.[facility]
--- OUTSIDE RECORDS SUMMARY | 2025-03-10 14:41 | XMS_ITS | Encounter Summary ---
Author Organization [facility] [place] Address [address] [place] [address] Phone Care Team Providers Care Pharmacy Coordinator Name Role Phone Kenroy Freeman NIRALI Primary Care Provider [phone] Encounter Details Date Type Department Care Team (Late st Contact Info) Description 03/20/2024 Documentation Only [facility] [place], [address] [place] [address] Reanna Goyal [address] [place] [address] Social History Tobacco Use Types [...] on file documented as of this encounter Functional Status * BP Answer Date of Assessment Author 120/74 03/20/2024 3:54 PM EST Tonya Wilson PA * Height Answer Date of Assessment Author 65 03/20/2024 3:54 PM Tonya Shipley PA * Weight Answer Date of Assessment Author 3616 03/20/2024 3:54 PM Tonya Shipley PA * BMI (Calculated) Answer Date of Assessment Author 37.6 03/20/2024 3:54 PM Tonya Shipley PA * BP Location Answer Date of Assessment Author Right upper arm 03/20/2024 3:54 PM Tonya Shipley PA * BP Answer Date of Assessment Author 120/74 03/20/2024 3:54 PM Tonya Shipley PA * Height Answer Date of Assessment Author 65 03/20/2024 3:54 PM Tonya Shipley PA * Weight Answer Date of Assessment Author 3616 03/20/2024 3:54 PM Tonya Shipley PA * BMI (Calculated) Answer Date of Assessment Author 37.6 03/20/2024 3:54 PM Tonya Shipley PA * BP Location Answer Date of Assessment Author Right upper arm 03/20/2024 3:54 PM Tonya Shipley PA documented as of this encounter Plan of Treatment Upcoming Encounters Date Type Department Care Team (Late st Contact Info) Description 05/06/2025 10:00 AM EST Office Visit [facility] [place], [address] [facility] [place] [address] Reginaldo Eagle MD [address] [facility] [place] [address] documented as of this encounter Visit Diagnoses Not on filedocumented in this encounter Care Teams Pharmacy Coordinator Relationship Specialty Start Date End Date Kenroy Freeman NP [address] [place] [address] PCP - General Nurse Practitioner 11/15/19 documented as of this encounter
--- OUTSIDE RECORDS SUMMARY | 2025-03-10 14:41 | XMS_ITS | Clinical Summary ---
Author Organization [facility] [place], Address [address] [place] [address] [place] [address] Phone Care Team Providers Care Wallet Assembler Name Role Phone Kenroy Freeman NP Primary Care Provider [phone] Allergies Active Allergy Reactions Criticality Noted Date [...] 10 mg by mouth every night Active ezetimibe (ZETIA) 10 MG tablet Take [...] 2 WEEKS FOR 90 DAYS 3 Active spironolactone (ALDACTONE) 50 MG tablet Take 1 tablet (50 mg total) by mouth in the morning and 1 tablet (50 mg total) in the evening. 180 tablet 3 5 Active Active Problems Problem Noted Date Diagnosed [...] Encounters Date Type Department Care Team Description 02/17/2025 Documentation Only [facility], [address] [address] Kati Casas MA 01/28/2025 10:50 AM EDT Office Visit [facility], [address] [address] Reginaldo Eagle MD Essential hypertension (Primary Dx) from Last 3 Months Immunizations Immunization Administration Dates Next Due H1N1 Inj 02/25/2016 Influenza, MDCK, Quadrivalent, with preservative 01/31/2018 Family History Medical History Relation Comments Heart disease Father [place] Stroke Father Hypertension Mother Cancer Sibling 1 [...] Visit [facility], [address] [place] [address] Reginaldo Eagle MD [address] [facility] [place] [address] Health Maintenance Due Date Last Done [...] Years) Discontinued 03/10/2015 Insurance [facility] Dual SNP ([id number]) [address] [place] [address] [id number] [place] [id number] Care Teams Wallet Assembler Relationship Specialty Start Date End Date Kenroy Freeman NP [address] [place], [place] [id number] PCP - General Nurse Practitioner 11/15/19
--- OUTSIDE RECORDS SUMMARY | 2025-03-10 14:41 | XMS_ITS | Encounter Summary ---
Author Organization [facility] Address [address] [place] [address] Phone Care Team Providers Care Chief Diversity Officer Name Role Phone Kenroy Freeman NIRALI Primary Care Provider [phone] Encounter Details Date Type Department Care Team (Late st Contact Info) Description 08/18/2021 Documentation Only [facility] [address] [place] [address] Jose Martin Mccall MD [address] [place] [address] [place] [address] Social History Tobacco Use Types [...] [facility] [address] [place] [address] Reginaldo Eagle MD [address] [facility] [address] [place] [address] documented as of this encounter Visit Diagnoses Not on filedocumented in this encounter Care Teams Chief Diversity Officer Relationship Specialty Start Date End Date Kenroy Freeman NP [facility] [place] [address] PCP - General Nurse Practitioner 11/15/19 documented as of this encounter
--- OUTSIDE RECORDS SUMMARY | 2025-03-10 14:41 | XMS_ITS | Encounter Summary ---
Author Organization [facility] Address [address] [place] [address] Phone Care Team Providers Care Receptionist Airline Lounge Name Role Phone Kenroy Freeman NIRALI Primary Care Provider [phone] Encounter Details Date Type Department Care Team (Late st Contact Info) Description 02/17/2025 Documentation Only [facility] [address] [place] [address] [place], [place] [address] [place] [address] Social History Tobacco Use Types [...] Visit [facility] [address] [place] [address] Reginaldo Eagle MD [address] [facility] [address] [place] [address] documented as of this encounter Visit Diagnoses Not on filedocumented in this encounter Care Teams Receptionist Airline Lounge Relationship Specialty Start Date End Date Kenroy Freeman NP [address] [place] [address] PCP - General Nurse Practitioner 11/15/19 documented as of this encounter
--- OUTSIDE RECORDS SUMMARY | 2025-03-10 14:41 | XMS_ITS | Encounter Summary ---
Author Organization [facility] Address [address] [facility] [address] [place] [address] Phone Care Team Providers Care Business Analyst Consultant Name Role Phone Reyes Beach MD Primary Care Provider [phone] Reason for Referral * MRI/CAT Scan - Closed Specialty Diagnoses / Procedures Referred By Katelynn feldman Referred To Contact Procedures CT Cardiac Outside (No Interpretation) Regino Bang MD Phone: tel: fax: [email or web address] Referral ID Status Reason Start Date Expiration Date Visits Re quested Visits Authorized [id number] Closed 09/11/2018 09/11/2019 1 1 Encounter Details Date Type Department Care Team (Late st Contact Info) Description 09/11/2018 Transcribe Orders [facility] [address] [place] [address] [place] Marie [address] [place] [address] [email or web address] Social History Tobacco Use Types [...] filedocumented in this encounter Care Teams Business Analyst Consultant Relationship Specialty Start Date End Date Reyes Beach MD [email or web address] PCP - General Internal Medicine 08/22/18 documented as of this encounter Additional Source Comments The information contained in this document represents components of the legal health record. It is not the complete legal health record.[facility]
--- OUTSIDE RECORDS SUMMARY | 2025-03-10 14:41 | XMS_ITS | Encounter Summary ---
Author Organization [facility] Address [address] [place] [address] Phone Care Team Providers Care Tallow Maker Name Role Phone Kenroy Freeman NIRALI Primary Care Provider [phone] Encounter Details Date Type Department Care Team (Late st Contact Info) Description 05/13/2021 Documentation Only [facility] [address] [facility] [place] [address] Jose Martin Mccall MD [address] [place] [address] [place] [address] Social History Tobacco Use Types [...] Visit [facility] [address] [facility] [place] [address] Reginaldo Eagle MD [address] [facility] [place] [address] documented as of this encounter Visit Diagnoses Not on filedocumented in this encounter Care Teams Tallow Maker Relationship Specialty Start Date End Date Kenroy Freeman NP [place] [address] PCP - General Nurse Practitioner 11/15/19 documented as of this encounter
== END 2025-03-10 11:39 | disposition home or self-care (01) ==
LOC: HO.PMC 11:17
PROVIDERS: PCP Nurse Practitioner Family; Visit Provider Internal Medicine
DX: M54.51 Vertebrogenic low back pain (principal)
CPT/HCPCS: 99214

== ENCOUNTER → 2025-03-10 11:16 | Outpatient (BNVA) | payer OTHER, SELFPAY | PROVIDERS: PCP Nurse Practitioner Family; Visit Provider Internal Medicine | DX: M54.51 Vertebrogenic low back pain (principal) | CPT/HCPCS: 99212 ==

== ENCOUNTER 2025-04-14 10:09 | Outpatient (REF) | payer OTHER, SELFPAY ==
--- NOTE | ~2025-04-14 | US_ITS ---
CLINICAL HISTORY: E83.59 - Other disorders of calcium metabolism US of kidneys Comparison: None provided Findings: Bilateral kidneys are normal in size and echogenicity, no cortical thinning, right kidney measures 10.7 cm in length, left kidney 10.2 cm in length. No calculus, hydronephrosis or mass. Mild right renal pelviectasis. Again noted mildly echogenic bilateral renal pyramids. No abnormal vascular flow of the kidneys. Impression: 1. 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 2. Right renal pelviectasis, no hydronephrosis. This document has been electronically signed by: Valencia Mary MD on 04/15/2025 16:46:00
--- OUTSIDE RECORDS SUMMARY | 2025-04-14 11:21 | XMS_ITS | Patient Health Record ---
Author Organization [facility] Address [address] [place] [address] Care Team Providers Care Telecommunications Specialist Name Role Phone Kenroy Sánchez Primary Care Provider Unav ailable Black, Cherise Unavailable [phone] Allergies Allergen (clinical drug ingredient) Drug/Non Drug [...] Status Risk Notes Problem Acquired hallux valgus (02691057) Hallux valgus (acquired), left foot (M20.12) Active confirmed Problem Acquired hallux valgus (75038134) Hallux valgus (acquired), right foot (M20.11) Active confirmed Problem 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) Active confirmed Problem Pronation deformity of right foot (M21.6X1) Active confirmed Plan Of Treatment No Information Insurance Providers Payer Name Payer Address Payer Phone Subscriber Number Group Number Insured Name Patient Relationship to Insured Coverage Start Date Coverage End Date [facility] [employer] Claims [address] [place] [id number] Miriam Chacon Self - patient is the insured Medical (General) History Medical History History ICD Code Anxiety Depression High blood pressure raynauds disease Sciatica thyroid HIV Surgical History Surgery Date(Month/Year) tubes in ears tubal ligation 2000 shoulder surgery
--- OUTSIDE RECORDS SUMMARY | 2025-04-14 11:21 | XMS_ITS | Encounter Summary ---
Author Organization [facility] Address [address] [place] [address] Phone Care Team Providers Care Rehabilitation Manager Name Role Phone Kenroy Freeman NIRALI Primary Care Provider [phone] Encounter Details Date Type Department Care Team (Late st Contact Info) Description 08/08/2022 Documentation Only [facility] [address] [place] [address] Tonya Wilson PA [address] [place] [address] [place] [address] Social History Tobacco Use Types [...] [facility] [address] [place] [address] Reginaldo Eagle MD [address] [facility] [place] [address] documented as of this encounter Visit Diagnoses Not on filedocumented in this encounter Care Teams Rehabilitation Manager Relationship Specialty Start Date End Date Kenroy Freeman NP [place] [address] PCP - General Nurse Practitioner 11/15/19 documented as of this encounter
--- OUTSIDE RECORDS SUMMARY | 2025-04-14 11:21 | XMS_ITS | Encounter Summary ---
Author Organization [facility] Address [address] [place] [address] Phone Care Team Providers Care Vocational Auto Body Instructor Name Role Phone Kenroy Freeman NP Primary Care Provider [phone] Encounter Details Date Type Department Care Team (Late st Contact Info) Description 03/01/2021 Documentation Only [facility] [address] [place] [address] Falguni Whitney PA Social History Tobacco Use [...] Of [facility] [address] [place] [address] Reginaldo Eagle MD [address] [place] [address] [place] [id number] documented as of this encounter Visit Diagnoses Not on filedocumented in this encounter Care Teams Vocational Auto Body Instructor Relationship Specialty Start Date End Date Kenroy Freeman NP [facility] [place] [address] PCP - General Nurse Practitioner 11/15/19 documented as of this encounter
--- OUTSIDE RECORDS SUMMARY | 2025-04-14 11:21 | XMS_ITS | Encounter Summary ---
Author Organization [facility] Address [address] [place] [address] Phone Care Team Providers Care Orthotic Aide Name Role Phone Kenroy Freeman NIRALI Primary Care Provider [phone] Encounter Details Date Type Department Care Team (Late st Contact Info) Description 08/18/2022 Documentation Only [facility] [address] [place] [address] [place], [place] [address] [place] [address] Social History Tobacco Use Types [...] Visit [facility] [address] [place] [address] Reginaldo Eagle MD [address] [facility] [place] [address] documented as of this encounter Visit Diagnoses Not on filedocumented in this encounter Care Teams Orthotic Aide Relationship Specialty Start Date End Date Kenroy Freeman NP [facility] [place] [address] PCP - General Nurse Practitioner 11/15/19 documented as of this encounter
--- OUTSIDE RECORDS SUMMARY | 2025-04-14 11:21 | XMS_ITS | Encounter Summary ---
Author Organization [facility] Address [address] [place] [address] Phone Care Team Providers Care Disbursement Clerk Name Role Phone Kenroy Freeman NIRALI Primary Care Provider [phone] Encounter Details Date Type Department Care Team (Late st Contact Info) Description 10/13/2021 Documentation Only [facility] [address] [address] Jose Martin Mccall MD [address] [place] [address] [place] [address] Social History Tobacco Use Types [...] Visit [facility] [address] [place] [address] Reginaldo Eagle MD [address] [facility] [place] [address] documented as of this encounter Visit Diagnoses Not on filedocumented in this encounter Care Teams Disbursement Clerk Relationship Specialty Start Date End Date Kenroy Freeman NP [facility] [place] [address] PCP - General Nurse Practitioner 11/15/19 documented as of this encounter
--- OUTSIDE RECORDS SUMMARY | 2025-04-14 11:21 | XMS_ITS | Clinical Summary ---
Author Organization [facility] Address [address] [place] [address] Care Team Providers Care Grocery Deliverer Name Role Phone Unavailable Primary Care Provider [...]
--- OUTSIDE RECORDS SUMMARY | 2025-04-14 11:21 | XMS_ITS | Encounter Summary ---
Author Organization [facility] Address [address] [place] [address] Phone Care Team Providers Care Supervisor Airplane Flight Attendant Name Role Phone Kenroy Freeman NIRALI Primary Care Provider [phone] Encounter Details Date Type Department Care Team (Late st Contact Info) Description 05/13/2021 Documentation Only [facility] [address] [facility] [address] Jose Martin Mccall MD [address] [place] [address] [place] [address] Social History Tobacco Use Types [...] [facility] [address] [place] [address] Reginaldo Eagle MD [address] [facility] [place] [address] documented as of this encounter Visit Diagnoses Not on filedocumented in this encounter Care Teams Supervisor Airplane Flight Attendant Relationship Specialty Start Date End Date Kenroy Freeman NP [facility] [place] [address] PCP - General Nurse Practitioner 11/15/19 documented as of this encounter
--- OUTSIDE RECORDS SUMMARY | 2025-04-14 11:21 | XMS_ITS | Encounter Summary ---
Author Organization [facility] Address [address] [place] [address] Phone Care Team Providers Care Supervisor Beehive Kiln Name Role Phone Kenroy Freeman NIRALI Primary Care Provider [phone] Encounter Details Date Type Department Care Team (Late st Contact Info) Description 02/17/2025 Documentation Only [facility] [address] [place] [address] [place], [place] [address] [place] [address] Social History Tobacco Use Types [...] [facility] [address] [facility] [place] [address] Reginaldo Eagle MD [address] [facility] [place] [address] documented as of this encounter Visit Diagnoses Not on filedocumented in this encounter Care Teams Supervisor Beehive Kiln Relationship Specialty Start Date End Date Kenroy Freeman NP [address] [place] [address] PCP - General Nurse Practitioner 11/15/19 documented as of this encounter
--- OUTSIDE RECORDS SUMMARY | 2025-04-14 11:21 | XMS_ITS | Encounter Summary ---
Author Organization [facility] Address [address] [place] [address] Phone Care Team Providers Care Instrumentation Technologist Name Role Phone Kenroy Freeman NIRALI Primary Care Provider [phone] Encounter Details Date Type Department Care Team (Late st Contact Info) Description 08/18/2021 Documentation Only [facility] [address] [place] [address] Jose Martin Mccall MD [address] [place] [address] [place] [address] Social History Tobacco Use Types [...] [facility] [address] [place] [address] Reginaldo Eagle MD [address] [facility] [place] [address] documented as of this encounter Visit Diagnoses Not on filedocumented in this encounter Care Teams Instrumentation Technologist Relationship Specialty Start Date End Date Kenroy Freeman [place] [address] PCP - General Nurse Practitioner 11/15/19 documented as of this encounter
--- OUTSIDE RECORDS SUMMARY | 2025-04-14 11:21 | XMS_ITS | Encounter Summary ---
Author Organization [facility] Address [address] [place] [address] Phone Care Team Providers Care Echo Tech Name Role Phone Kenroy Freeman NIRALI Primary Care Provider [phone] Encounter Details Date Type Department Care Team (Late st Contact Info) Description 08/18/2021 Documentation Only [facility] [address] [place] [address] Jose Martin Mccall MD [address] [place] [address] [place] [address] Social History Tobacco Use Types [...] [facility] [address] [place] [address] Reginaldo Eagle MD [address] [facility] [place] [address] documented as of this encounter Visit Diagnoses Not on filedocumented in this encounter Care Teams Echo Tech Relationship Specialty Start Date End Date Kenroy Freeman NP [facility] [place] [address] PCP - General Nurse Practitioner 11/15/19 documented as of this encounter
--- OUTSIDE RECORDS SUMMARY | 2025-04-14 11:22 | XMS_ITS | Encounter Summary ---
Author Organization [facility] Address [address] [employer] [facility] [address] [place] [address] Phone Care Team Providers Care Mesh Cutter Name Role Phone Reyes [place] MD Primary Care Provider [phone] Encounter Details Date Type Department Care Team (Late st Contact Info) Description 04/20/2021 Procedure Pass [facility], [place] [address] [place] [address] Social History Tobacco Use Types Packs/Day Years [...] documented as of this encounter Care Teams Mesh Cutter Relationship Specialty Start Date End Date Reyes [place] MD PCP - General Internal Medicine 08/22/18 documented as of this encounter Additional Source Comments The information contained in this document represents components of the legal health record. It is not the complete legal health record.[facility]
--- OUTSIDE RECORDS SUMMARY | 2025-04-14 11:22 | XMS_ITS | Encounter Summary ---
Author Organization [facility] Address [address] [place] [address] Phone Care Team Providers Care Software Qa Manager Name Role Phone Kenroy Freeman NIRALI Primary Care Provider [phone] Encounter Details Date Type Department Care Team (Late st Contact Info) Description 09/27/2021 Documentation Only [facility] [address] [place] [address] Jose Martin Mccall MD [address] [place] [address] [place] [address] Social History Tobacco Use Types [...] [facility] [address] [place] [address] Reginaldo Eagle MD [address] [facility] [place] [address] documented as of this encounter Visit Diagnoses Not on filedocumented in this encounter Care Teams Software Qa Manager Relationship Specialty Start Date End Date Kenroy Freeman NP [facility] [place] [address] PCP - General Nurse Practitioner 11/15/19 documented as of this encounter
--- OUTSIDE RECORDS SUMMARY | 2025-04-14 11:22 | XMS_ITS | Encounter Summary ---
Author Organization [facility] Address [address] [place] [address] Phone Care Team Providers Care Photographic Specialist Name Role Phone Kenroy Freeman NIRALI Primary Care Provider [phone] Encounter Details Date Type Department Care Team (Late st Contact Info) Description 09/19/2022 Documentation Only [facility] [address] [place] [address] Tonya Wilson PA [address] [place] [address] [place] [address] Social History Tobacco Use Types [...] [facility] [address] [place] [address] Reginaldo Eagle MD [address] [place] [address] documented as of this encounter Visit Diagnoses Not on filedocumented in this encounter Care Teams Photographic Specialist Relationship Specialty Start Date End Date Kenroy Freeman [place] [address] PCP - General Nurse Practitioner 11/15/19 documented as of this encounter
--- OUTSIDE RECORDS SUMMARY | 2025-04-14 11:22 | XMS_ITS | Encounter Summary ---
Author Organization [facility] Address [address] [place] [address] Phone Care Team Providers Care Video Production Specialist Name Role Phone Kenroy Freeman NIRALI Primary Care Provider [phone] Encounter Details Date Type Department Care Team (Late st Contact Info) Description 06/01/2023 Documentation Only [facility] [address] [place] [address] Deya Chowdhury [address] [place] [address] Social History Tobacco Use Types [...] [facility] [address] [place] [address] Reginaldo Eagle MD [address] [place] [address] [place] [address] documented as of this encounter Visit Diagnoses Not on filedocumented in this encounter Care Teams Video Production Specialist Relationship Specialty Start Date End Date Kenroy Freeman NP [facility] [place] [address] PCP - General Nurse Practitioner 11/15/19 documented as of this encounter
--- OUTSIDE RECORDS SUMMARY | 2025-04-14 11:22 | XMS_ITS | Encounter Summary ---
Author Organization [facility] Address [address] [facility] [address] [place] [id number] Phone Care Team Providers Care Safety Inspector Name Role Phone Reyes Beach MD Primary Care Provider [phone] Reason for Referral * MRI/CAT Scan - Closed Specialty Diagnoses / Procedures Referred By Katelynn feldman Referred To Contact Procedures CT Cardiac Outside (No Interpretation) Regino Bang MD Phone: tel: fax: mailto:[email or web address] Referral ID Status Reason Start Date Expiration Date Visits Re quested Visits Authorized [id number] Closed 09/11/2018 09/11/2019 1 1 Encounter Details Date Type Department Care Team (Late st Contact Info) Description 09/11/2018 Transcribe Orders [facility] [address] [place] [id number] [place] [address] [place] [id number] [email or web address] Social History Tobacco Use Types Packs/Day [...] us Regino Bang MD IMG OUTSIDE IMAGING W/OUT INTERPRETATION Final Result [email or web address] documented in this encounter Visit Diagnoses Not on filedocumented in this encounter Care Teams Safety Inspector Relationship Specialty Start Date End Date Reyes Beach MD [email or web address] PCP - General Internal Medicine 08/22/18 documented as of this encounter Additional Source Comments The information contained in this document represents components of the legal health record. It is not the complete legal health record.[facility]
--- OUTSIDE RECORDS SUMMARY | 2025-04-14 11:22 | XMS_ITS | Encounter Summary ---
Author Organization [facility] Address [address] [place] [address] Phone Care Team Providers Care Media Operator Name Role Phone Kenroy Freeman NIRALI Primary Care Provider [phone] Encounter Details Date Type Department Care Team (Late st Contact Info) Description 06/02/2023 Documentation Only [facility] [address] [place] [address] Reanna Goyal [address] [place] [address] Social History Tobacco Use Types [...] Visit [facility] [address] [place] [address] Reginaldo Eagle MD [address] [place] [address] documented as of this encounter Visit Diagnoses Not on filedocumented in this encounter Care Teams Media Operator Relationship Specialty Start Date End Date Kenroy Freeman NP [facility] [place] [address] PCP - General Nurse Practitioner 11/15/19 documented as of this encounter
--- OUTSIDE RECORDS SUMMARY | 2025-04-14 11:22 | XMS_ITS | Encounter Summary ---
Author Organization [facility] Address [address] [place] [address] Phone Care Team Providers Care Mammography Tech Name Role Phone Kenroy Freeman NIRALI Primary Care Provider [phone] Encounter Details Date Type Department Care Team (Late st Contact Info) Description 03/20/2024 Documentation Only [facility] [address] [place] [address] Reanna Goyal [address] [place] [address] Social History Tobacco Use Types [...] [facility] [address] [place] [address] Reginaldo Eagle MD [address] [place] [address] documented as of this encounter Visit Diagnoses Not on filedocumented in this encounter Care Teams Mammography Tech Relationship Specialty Start Date End Date Kenroy Freeman NP [employer] [place] [address] PCP - General Nurse Practitioner 11/15/19 documented as of this encounter
--- OUTSIDE RECORDS SUMMARY | 2025-04-14 11:22 | XMS_ITS | Clinical Summary ---
Author Organization [facility] [place], Address [address] [place] [address] [place] [address] Phone Care Team Providers Care Slope Tender Name Role Phone Kenroy Freeman NP Primary Care Provider [phone] Allergies Active Allergy Reactions Criticality Noted Date [...] Only [facility], [address] [place] [address] Kati Casas MA 01/28/2025 10:50 AM EDT Office Visit [facility], [address] [place] [address] Reginaldo Eagle MD Essential hypertension (Primary Dx) from Last 3 Months Immunizations Immunization Administration Dates Next Due H1N1 Inj 02/25/2016 Influenza, MDCK, Quadrivalent, with preservative 01/31/2018 Family History Medical History Relation Comments Heart disease Father MD Stroke Father Hypertension Mother Cancer Sibling 1 [...] Visit [facility], [address] [place] [address] Reginaldo Eagle MD [address] [place] [address] Health [...] (6 to 49 Years) Discontinued 03/10/2015 Insurance [facility] Dual SNP ([id number]) [address] [place] [phone] [place] [id number] Care Teams Slope Tender Relationship Specialty Start Date End Date Kenroy Freeman NP [address] [place], [place] [id number] PCP - General Nurse Practitioner 11/15/19
--- OUTSIDE RECORDS SUMMARY | 2025-04-14 11:22 | XMS_ITS | Clinical Summary ---
Author Organization [facility] Address [address] [address] Phone Care Team Providers Care Subscription Clerk Name Role Phone Reyes Beach MD Primary Care Provider [phone] Allergies Active Allergy Reactions Criticality Noted Date [...] topic Medical Devices Not on file Insurance [facility] [employer] MEDICARE REPLACEMENT MEDICARE REPLACEMENT MEDICARE REPLACEMENT MEDICARE REPLACEMENT MEDICARE REPLACEMENT MEDICARE REPLACEMENT MEDICARE REPLACEMENT [facility] ONE CARE MEDICARE REPLACEMENT [facility]IC[facility] REPLACEMENT Care Teams Subscription Clerk Relationship Specialty Start Date End Date Reyes Beach MD PCP - General Internal Medicine 08/22/18 Additional Source Comments The information contained in this document represents components of the legal health record. It is not the complete legal health record.[facility]
== END 2025-04-14 10:10 | disposition home or self-care (01) ==
LOC: HO.US 10:09
PROVIDERS: PCP Nurse Practitioner Family; Visit Provider Urology
DX: R31.29 Other microscopic hematuria (principal); E83.59 Other disorders of calcium metabolism; N29 Other disorders of kidney and ureter in diseases classified elsewhere; Z87.442 Personal history of urinary calculi
CPT/HCPCS: 76775

== ENCOUNTER → 2025-04-14 10:12 | Outpatient (BNV) | payer OTHER, SELFPAY | PROVIDERS: PCP Nurse Practitioner Family; Visit Provider Radiology Diagnostic Radiology | DX: N13.30 Unspecified hydronephrosis (principal); E83.59 Other disorders of calcium metabolism | CPT/HCPCS: 76775 ==